=== PATIENT | male | born 1960 | race Caucasian/White ===

== ENCOUNTER 2017-10-20 11:09 | Emergency (ER) | payer SELFPAY ==
[2017-10-20 11:10] VITALS: BP 134/103; PULSE 111; RESP 16; TEMP 36.4; O2SAT 97; BMI 42.7
--- NOTE | 2017-10-20 11:36 | ED.VISSUMM ---
- ER Visit Summary Date of Service: 10/20/17 Chief Complaint: Acute on chronic abdominal pain History of Present Illness: The patient is a [address] PTSD, anxiety, prior appendectomy with hernia repair with mesh by Dr. Hubert Tang. Patient states that he has a lot of abdominal pain time and time. Seem to gotten worse today. He denies any nausea vomiting he has had some constipation. Denies any dysuria. States pain is on his right side of his abdomen primarily lower into his right groin. He denies any dysuria. Denies any fever or trauma. States he has been constipated for the last 4 days. Physical Examination: Well-appearing middle-age male. Vital signs are stable he is afebrile. No acute distress. H EENT exam unremarkable. Lungs clear to auscultation. Heart regular rhythm rate about 110 no murmur. Abdomen is soft he has a well-healed prior horizontal appendectomy incision right lower quadrant. He is tenderness around that. In his right lower quadrant. He has a large abdomen. Normal bowel sounds. Soft. No signs of obstruction. External exam is unremarkable. No hernias that are obvious. No signs of torsion or testicular mass. Moving all 4 extremities. Neurovascular intact. Test Results: Has had [address] abdomens which showed chronic changes. The ultrasound of his right groin area showing a hydrocele. BC normal white count 8. BMP normal. Liver enzymes and lipase normal. Emergency Department Course and Treatment: Treated with morphine and Zofran for pain. Treatment Plan: Exam patient is doing well. At 1307 will be discharged home. He will follow-up with Dr. Crisostomo for further evaluation of acute on chronic abdominal pain. At this time I do not appreciate an obvious hernia there may be a incisional hernia on the right side but is currently is not strangulated or incarcerated. Disposition: Discharge Impression: Acute on chronic abdominal pain vomiting of uncertain etiology Prior history of appendectomy and hernia repairs with mesh This note was generated with [employer] dictation software. It may contain incorrect words, spelling, and punctuation that were not noted in review of the chart prior to signing ED Disposition - Plan for ED Patient: Chief Complaint: Abd Pain Referrals: Roman Trammell MD [Primary Care Provider] -
[2017-10-20 11:59] LABS: Absolute Lymphocyte Count 1.95 X10^3/ul (0.83-4.51); Absolute Neutrophil Count 5.7 X10^3/uL (2.0-7.7); Basophil# 0.06 X10^3/uL; Basophil% 0.7 % (0-1); Eosinophil# 0.26 X10^3/uL; Hematocrit 46.6 % (40-54); Lymphocyte # 1.95 X10^3/ul (4.0); Lymphocyte % 22.4 % (19-41); Mean Corp Hgb Conc 34.3 g/gl (32-36); Mean Corpuscular Hgb 30.8 pg (27.0-32.0); Mean Corpuscular Volume 89.8 fL (80-94); Mean Platelet Vol. 9.1 fl (6.2-12.0); Monocyte# 0.66 X10^3/uL; Monocyte% 7.6 % (0-10); Neutrophil # 5.73 X10^3/uL (2.7-7.7); POSITIVE COUNT NO; POSITIVE DIFFERENTIAL NO; POSITIVE MORPHOLOGY NO; Platelet Count 186 K/mm3 (150-450); RBC Distribution Width CV 14.8 % (11.6-14.6); Red Blood Count 5.19 M/mm3 (4.6-6.2); White Blood Count 8.7 K/mm3 (4.4-11.0)
[2017-10-20 12:20] LABS: AST(SGOT) 18 U/L (15-37); Alanine Aminotransfer ALT/SGPT 27 U/L (16-61); Alkaline Phosphatase 75 U/L (45-117); Anion Gap 5 (5-15); BUN 15 mg/dL (7-18); BUN/Creat Ratio 15.2 RATIO (10-20); Bilirubin, Direct 0.17 mg/dL (0.00-0.30); Chloride 104 mmol/L (98-107); Creatinine, Serum 0.99 mg/dL (0.70-1.30); EST Glomerular Filtration Rate 83 mL/min (>60); Est Glom Filt Rate - Afr Amer 100 mL/min (>60); Estimated Creatinine Clearance 90.36 ml/min; Globulin 3.2 g/dL (2.2-4.2); Glucose 96 mg/dL (74-106); Lipase 230 U/L (73-393); Potassium 4.2 mmol/L (3.5-5.1); Protein, Total 7.2 g/dL (6.4-8.2); Sodium Level 138 mmol/L (136-145)
[2017-10-20] MEDS: Morphine 4 MG/ML Syringe 6 MG IV (12:23)
[2017-10-20 13:00] VITALS: BP 144/89; PULSE 93; RESP 16; O2SAT 94
--- NOTE | 2017-10-20 13:09 | ED.DEP ---
ED Disposition - Plan for ED Patient: Disposition: Home or Assisted Living Chief Complaint: Abd Pain Instructions: ED Abdominal Pain Unkn Cause Referrals: Carlos Crisostomo MD [STAFF PHYSICIAN] - As soon as possible Additional Instructions: Plan follow-up with Dr. Crisostomo for further evaluation. All your labs today were normal. You had 3 different abdominal CAT scans at the end of 2016 all of which were negative.
== END 2017-10-20 13:23 | disposition home or self-care (01) ==
PROVIDERS: Emergency Provider Emergency Medicine; Family Provider Family Medicine; PCP Family Medicine
DX: R10.31 Right lower quadrant pain (principal); G89.29 Other chronic pain; N43.3 Hydrocele, unspecified; R11.10 Vomiting, unspecified; R19.7 Diarrhea, unspecified; K59.00 Constipation, unspecified; F41.9 Anxiety disorder, unspecified; F43.10 Post-traumatic stress disorder, unspecified; X58.XXXA Exposure to other specified factors, initial encounter; Y93.9 Activity, unspecified; Y92.9 Unspecified place or not applicable; Y99.9 Unspecified external cause status; Z72.0 Tobacco use; Z79.899 Other long term (current) drug therapy
CPT/HCPCS: 80048; 80076; 83690; 85025; 96372; 99284; A4216

== ENCOUNTER 2019-03-02 08:15 | Emergency (ER) | payer SELFPAY ==
[2019-03-02 08:16] VITALS: BP 168/103; PULSE 119; RESP 18; TEMP 36.7; O2SAT 94; BMI 41.5
--- NOTE | 2019-03-02 08:36 | CT_ITS ---
STUDY: CT ABDOMEN AND PELVIS WITHOUT CONTRAST REASON FOR EXAM: Male, 58 years old. Shortness of breath. Difficulty with urination. Recent hernia repair. RADIATION DOSAGE (If Supplied By Facility): CTDIvol = ( 33.88 ) mGy, DLP = ( 1896.38 ) mGycm TECHNIQUE: Transaxial images were obtained from the dome of the diaphragm to the symphysis pubis without oral contrast, and without intravenous contrast. Sagittal and coronal images were reconstructed. Individualized dose optimization techniques were used for this CT. COMPARISON: Comparison is made with prior study February 12, 2017. FINDINGS: The visualized lung bases are unremarkable. The visualized portions of the heart are within normal limits. Normal liver. Normal gallbladder and extrahepatic biliary system. Normal spleen. Normal pancreas. Normal bilateral adrenal glands. Normal right kidney. Normal left kidney. Normal visualized stomach. Normal small intestine. There are scattered colonic diverticula consistent with diverticulosis. The appendix is visualized and appears normal. Normal abdominal aorta. Normal inferior vena cava. Normal retroperitoneum. Normal urinary bladder. There are prostatic calcifications. The prostate is not enlarged. Normal abdominal wall. There are mild degenerative changes of the visualized lumbar spine. CT/Abdomen/Pelvis without Cont IMPRESSION: No acute adenopathy is seen. Prostatic calcifications. Electronically Signed: Emory Tejada, at 9:54 EDT , Service support ,
--- NOTE | 2019-03-02 08:36 | EKG12_ITS ---
Test Reason : ABD PAIN Blood Pressure : / mmHG Vent. Rate : 096 BPM Atrial Rate : 096 BPM P-R Int : 180 ms QRS Dur : 126 ms QT Int : 374 ms P-R-T Axes : 050 -24 013 degrees QTc Int : 472 ms Normal sinus rhythm Right bundle branch block Abnormal ECG Confirmed by LAURI ROGERS ([id number]), brands editor PERRY ASCENCIO ([id number]) on 03/06/2019 2:39:34 PM Referred By: JESSICA Confirmed By:LAURI ROGERS
[2019-03-02] MEDS: 0.9% Normal Saline 1,000 ML 1000 ML IV (08:48)
[2019-03-02] MEDS: Ondansetron 4 MG/2 ML Vial IV (08:49)
[2019-03-02] MEDS: Morphine 4 MG/ML Syringe IV (08:49)
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
[2019-03-02 08:52] LABS: Absolute Lymphocyte Count 2.89 X10^3/uL (0.83-4.51); Absolute Neutrophil Count 10.9 X10^3/uL (2.0-7.7); Basophil# 0.06 X10^3/uL; Basophil% 0.4 % (0-1); Eosinophil# 0.05 X10^3/uL; Eosinophils% 0.3 % (0-5); Hematocrit 54.9 % (40-54); Hemoglobin 17.8 g/dL (13.0-16.5); Lymphocyte # 2.89 X10^3/ul (4.0); Mean Corp Hgb Conc 32.4 g/dL (32-36); Mean Corpuscular Hgb 29.9 pg (27.0-32.0); Mean Corpuscular Volume 92.3 fL (80-94); Monocyte% 7.9 % (0-10); NRBC Flagged by Analyzer 0 % (0-5); Neutrophil # 10.89 X10^3/uL (2.7-7.7); Neutrophil % 71.6 % (47-70); Platelet Count 166 K/mm3 (150-450); RBC Distribution Width CV 14.8 % (11.6-14.6); RBC Distribution Width SD 49.9 fl (35.1-43.9); Red Blood Count 5.95 M/mm3 (4.6-6.2); White Blood Count 15.2 K/mm3 (4.4-11.0)
[2019-03-02 09:16] LABS: Mucous, Urine 0 SEEN /hpf (<or=2+)
[2019-03-02 09:19] LABS: Color, Urine Yellow (Yellow); Glucose, Dipstick Normal (Normal); Ketone-Dipstick Negative (Negative); Leukocyte Esterase-Dipstick Negative /ul (Negative); Nitrite-Dipstick Negative (Negative); Occult Blood-Urine 50 /ul (Negative); Protein-Dipstick Negative (Negative); Urine Bilirubin Dipstick Negative (Negative); Urine Clarity Sl. Cloudy (Clear); Urine Urobilinogen Normal (Normal)
[2019-03-02 09:23] LABS: ALB/GLOB Ratio 0.9 RATIO (0.9-2.4); AST(SGOT) 18 U/L (15-37); Alanine Aminotransfer ALT/SGPT 33 U/L (16-61); Albumin, Serum 3.8 g/dL (3.2-5.0); Alkaline Phosphatase 78 U/L (45-117); Anion Gap 9 (5-15); BUN 16 mg/dL (7-18); BUN/Creat Ratio 16.1 RATIO (10-20); Calcium,Total 9.4 mg/dL (8.5-10.1); Chloride 106 mmol/L (98-107); EST Glomerular Filtration Rate 82 mL/min (>60); Est Glom Filt Rate - Afr Amer 99 mL/min (>60); Globulin 4.1 g/dL (2.2-4.2); Glucose 94 mg/dL (74-106); Potassium 3.9 mmol/L (3.5-5.1); Protein, Total 7.9 g/dL (6.4-8.2); Sodium Level 143 mmol/L (136-145)
[2019-03-02 09:30] LABS: Bacteria RARE /hpf (None Seen); Red Blood Cells-Urine 0-5 SEEN /hpf (0-5); Squamous Epithelial Cells - UA 0-5 SEEN /hpf (0-5); White Blood Cells 0-5 SEEN /hpf (0-5)
--- NOTE | 2019-03-02 10:27 | ED.DEP ---
ED Disposition - Plan for ED Patient: Disposition: Home or Assisted Living Diagnosis: Chronic abdominal pain, Urinary incontinence Instructions: ABDOMINAL PAIN, Unkown Cause, (Male) Prescriptions: Lorazepam [Ativan] 0.5 mg PO BID 3 Days #6 tab Prescription Printed Referrals: Gabriel Recio MD [STAFF PHYSICIAN] - Greyson Feliciano MD [NON-STAFF] -
[2019-03-02 10:48] VITALS: BP 171/89; PULSE 84; RESP 18; O2SAT 99
== END 2019-03-02 10:54 | disposition home or self-care (01) ==
PROVIDERS: Emergency Provider Emergency Medicine
DX: R10.9 Unspecified abdominal pain (principal); G89.29 Other chronic pain; N39.490 Overflow incontinence; K59.00 Constipation, unspecified; R11.2 Nausea with vomiting, unspecified; I45.10 Unspecified right bundle-branch block; I10 Essential (primary) hypertension; E78.5 Hyperlipidemia, unspecified; F41.9 Anxiety disorder, unspecified; E66.9 Obesity, unspecified; F17.200 Nicotine dependence, unspecified, uncomplicated; Z88.5 Allergy status to narcotic agent; Z88.8 Allergy status to other drugs, medicaments and biological substances
CPT/HCPCS: 74176; 80053; 81001; 84484; 85025; 93005; 96361; 96374; 96375; 99283; J7030; A4216; J2405

== ENCOUNTER 2019-03-04 01:52 | Emergency (ER) | payer SELFPAY ==
[2019-03-04 01:53] VITALS: BP 202/124; PULSE 124; RESP 20; TEMP 37; O2SAT 95; BMI 44.7
--- NOTE | 2019-03-04 02:32 | ED.VIS.GEN ---
History of Present Illness Chief Complaint: Back Narrative: Patient is a 58-year-old male who presents with back pain. This is present just today. He complains of severe left lower back pain with radiation to the buttock lateral hip and anterior thigh to the level of the knee. He was recently having abdominal pain and had an unremarkable CT a couple days ago. He does have a history of constipation. He states he actually multiple large bowel movements today and his abdominal pain has since resolved. He was also having some urinary issues incontinence at that time. He notes that after having bowel movements this is actually resolved as well. No fecal incontinence or urinary retention. Currently no abdominal pain. He denies history of prior back surgery. No fevers. No numbness tingling or weakness. His pain is worse with bearing weight or ambulation. Past Medical History - Allergies and Home Meds Allergies/Adverse Reactions: Allergies codeine Allergy (Verified 03/04/19 01:55) Hives Iodinated Contrast Media [Iodinated Contrast Media - IV Dye] Allergy (Verified 03/04/19 01:55) Hives methylphenidate [From Ritalin] Adverse Reaction (Verified 03/04/19 01:55) Other ANTIDEPRESSANTS Adverse Reaction (Uncoded 03/04/19 01:55) Other Primary Care Physician: Care Physician,No Primary [Primary Care Provider] - Surgical History: appendectomy, - - Arthroscopic surgery Smoking Status: Current every day smoker - Family History Maternal Family History: Reports: No pertinent history Paternal Family History: Reports: Heart Disease Review of Systems ROS: Unable to Obtain General: Denies: Fever Cardiovascular: Denies: Chest pain Respiratory: Denies: Dyspnea Gastrointestinal: Reports: Abdominal pain, Constipation. Denies: Vomiting, Diarrhea Musculoskeletal: Reports: Back pain Skin: Denies: Rash Neurological: Denies: Headache Physical Exam Vital Signs/Narrative: Vital Signs Temp Pulse Resp BP Pulse Ox 03/04/19 01:53 98.6 F 124 H 20 H 202/124 H 95 Inital Vital Signs reviewed: Yes General: Well nourished Head: Normocephalic Eyes: EOMI ENT: Moist mucous membranes Neck: Supple Cardiovascular: Regular rate, Regular rhythm Respiratory: No distress, CTA bilaterally Abdomen: Soft, Nontender, Nondistended Back: Nontender Extremities: - - 5 out of 5 bilateral dorsiflexion, plantarflexion, extensor hallucis longus, extremities warm and dry, brisk capillary refill, easily palpable dorsalis pedis pulses, negative straight leg raise bilaterally Skin: Normal color Neurological: Alert, Normal Strength, Normal Sensation Diagnostic/Tx/Re-eval - Medical Decision Making Patient was treated with intramuscular morphine. His presentation is most consistent with a lumbar radiculopathy. He was provided prescriptions for Percocet and a prednisone burst. He was advised to follow-up with his primary care physician. He understands to return for new or worsening symptoms. He will be discharged. ED Disposition - Plan for ED Patient: Disposition: Home or Assisted Living Diagnosis: Lumbar radiculopathy, acute Instructions: BACK PAIN w/ SCIATICA Prescriptions: Oxycodone HCl/Acetaminophen [Percocet 5/325] 1 tab PO Q6H PRN PRN 3 Days #12 tab PRN Reason: Pain Prescription Printed predniSONE tablet 60 mg PO DAILY #15 tab Prescription Printed Referrals: Care Physician,No Primary [Primary Care Provider] -
[2019-03-04] MEDS: morphine 10 MG/ML Syringe SC (02:43)
[2019-03-04 03:13] VITALS: BP 152/97; PULSE 99; RESP 18; O2SAT 92
[2019-03-04 03:25] VITALS: BP 146/80; PULSE 78; RESP 18; O2SAT 96
== END 2019-03-04 03:27 | disposition home or self-care (01) ==
PROVIDERS: Emergency Provider Emergency Medicine
DX: M54.16 Radiculopathy, lumbar region (principal); R32 Unspecified urinary incontinence; K59.00 Constipation, unspecified; F17.200 Nicotine dependence, unspecified, uncomplicated; Z88.8 Allergy status to other drugs, medicaments and biological substances
CPT/HCPCS: 96372; 99282

== ENCOUNTER 2019-03-06 14:29 | Inpatient (IN) | payer SELFPAY ==
[2019-03-06] VITALS (9 sets, daily range): BP systolic 144–194; BP diastolic 87–107; PULSE 102–119; RESP 17–20; TEMP 36.7–37.2; O2SAT 91–97; BMI 43.5; BMI 43.9
--- NOTE | 2019-03-06 15:12 | CT_ITS ---
STUDY: CT BRAIN WITHOUT CONTRAST REASON FOR EXAM: Male, 58 years old. Arm weakness RADIATION DOSAGE (If Supplied By Facility): CTDIvol = ( 60.81 ) mGy, DLP = ( 1135.50 ) mGycm TECHNIQUE: Transaxial CT imaging of the brain was performed without administration of intravenous contrast material. Individualized dose optimization techniques were used for this CT. COMPARISON: May 21, 2015 FINDINGS: Normal soft tissue structures. Normal calvarium. Normal size ventricles and extra-axial spaces for the patient's age. Mild periventricular white matter ischemic changes.. Normal basal ganglia and thalami. Normal brainstem. Normal cerebellum. There is no intracranial hemorrhage. There are no findings of an acute ischemic infarction. Normal visualized paranasal sinuses. No significant change since prior exam CT/Brain/Head without Contrast IMPRESSION: Mild periventricular white matter ischemic change. No evidence for acute bleed. If concern for acute infarct MRI recommended. Electronically Signed: Tl Escobedo MD at 16:13 EDT , Service support ,
--- NOTE | 2019-03-06 15:13 | RAD_ITS ---
STUDY: X-RAY - LUMBAR SPINE REASON FOR EXAM: Male, 58 years old. Increasing low back pain TECHNIQUE: 3 view(s) of the lumbar spine were obtained. COMPARISON: None FINDINGS: Normal lumbar lordosis. There is moderate scoliosis. There is a normal alignment of the vertebrae. No evidence for acute fracture or subluxation.. Multilevel disc space narrowing and osteophytic spurring The soft tissue structures are unremarkable. On the lateral projection, there appears to be multilevel spinal stenosis exaggerated by developmental foreshortening the pedicles. This may be better assessed with MRI or CAT scan if indicated RAD/Lumbar Spine 2 or 3 Views IMPRESSION: Scoliosis and degenerative changes. Electronically Signed: Tl Escobedo MD at 16:06 EDT , Service support ,
--- NOTE | 2019-03-06 15:16 | ED.VISSUMM ---
- ER Visit Summary Date of Service: 03/06/19 Chief Complaint: Back pain History of Present Illness: The patient is a 58 M presenting with back pain. He states this has been ongoing for the past 2 to 3 weeks. He was seen in the ED 2 days ago and was prescribed Percocet. He states that this does help him sleep at night. He states he has 4 pills left. States 3 weeks ago he fell while walking his dog. He did not hit his head or lose consciousness. Since that time he complains of lower back pain. He has radiation to his left leg. He is not currently in pain management. He denies bowel or bladder incontinence. He also has a history of depression and anxiety. He has not been on his medication for the past year. He denies suicidal ideation. He also states this morning he was smoking a cigarette and dropped the cigarette. He states he dropped multiple things following this. Now has normal strength in his hand. Denies other complaints. Physical Examination vitals are stable. Patient is afebrile. Alert no acute distress. HEENT exam is unremarkable. Neck is supple, nontender Lungs are clear and equal bilaterally. Heart is regular and tachycardic Abdomen is soft nontender nondistended. Back: Left paraspinal lumbar muscle tenderness, no midline tenderness. Straight leg raise positive at 30 degrees on the left. Extremities are unremarkable. Normal distal pulses Skin is warm and dry. No focal neurologic deficit. NIH 0 Depressed affect, denies suicidal ideation Remainder of exam is unremarkable. Emergency Department Course and Treatment: Patient was given morphine, Zofran IV. CBC shows hemoglobin 18.7. Chemistries unremarkable other than BUN of 20. Lumbar x-ray shows scoliosis, degenerative changes. CT head shows chronic changes. CTA head and neck are normal. EKG sinus rate of 99, unchanged from previous. Discussed with Dr. Mejia who recommends admission. Discussed with the hospitalist. Disposition: Admission Impression: Sciatica, TIA This note was generated with [employer] dictation software. It may contain incorrect words, spelling, and punctuation that were not noted in review of the chart prior to signing ED Disposition - Plan for ED Patient: Referrals: Care Physician,No Primary [Primary Care Provider] -
[2019-03-06] MEDS: Ondansetron 4 MG/2 ML Vial IV (15:33)
[2019-03-06] MEDS: Morphine 4 MG/ML Syringe IV ×2 (15:33→18:06)
[2019-03-06 16:02] LABS: Absolute Lymphocyte Count 2.04 X10^3/uL (0.83-4.51); Absolute Neutrophil Count 7.4 X10^3/uL (2.0-7.7); Basophil% 0.9 % (0-1); Eosinophil# 0.37 X10^3/uL; Eosinophils% 3.4 % (0-5); Lymphocyte # 2.04 X10^3/ul (4.0); Lymphocyte % 18.8 % (19-41); Mean Corp Hgb Conc 33.6 g/dL (32-36); Mean Corpuscular Hgb 30.7 pg (27.0-32.0); Mean Corpuscular Volume 91.3 fL (80-94); Mean Platelet Vol. 8.9 fl (6.2-12.0); Monocyte# 0.87 X10^3/uL; NRBC Flagged by Analyzer 0 % (0-5); Neutrophil # 7.43 X10^3/uL (2.7-7.7); Neutrophil % 68.3 % (47-70); Platelet Count 179 K/mm3 (150-450); RBC Distribution Width CV 14.8 % (11.6-14.6); RBC Distribution Width SD 49.1 fl (35.1-43.9); Red Blood Count 6.09 M/mm3 (4.6-6.2); White Blood Count 10.9 K/mm3 (4.4-11.0)
[2019-03-06 16:07] LABS: Anion Gap 5 (5-15); BUN 20 mg/dL (7-18); BUN/Creat Ratio 20.8 RATIO (10-20); Calcium,Total 9.3 mg/dL (8.5-10.1); Chloride 106 mmol/L (98-107); Creatinine, Serum 0.96 mg/dL (0.70-1.30); EST Glomerular Filtration Rate 85 mL/min (>60); Est Glom Filt Rate - Afr Amer 103 mL/min (>60); Estimated Creatinine Clearance 93.63 ml/min; Glucose 109 mg/dL (74-106); Sodium Level 139 mmol/L (136-145)
[2019-03-06 16:08] LABS: Hematocrit 55.6 % (40-54)
[2019-03-06 16:16] LABS: Hemoglobin 18.7 g/dL (13.0-16.5)
--- NOTE | 2019-03-06 16:16 | NURSING ---
lab resulted hgb 18.7, christcian notified
--- NOTE | 2019-03-06 16:33 | CT_ITS ---
STUDY: CTA HEAD AND NECK WITH CONTRAST REASON FOR EXAM: Male, 58 years old. Left-handed weakness RADIATION DOSAGE (If Supplied By Facility): CTDIvol = ( 23.75 ) mGy, DLP = ( 881.96 ) mGycm TECHNIQUE: CT angiography was performed with a multi-detector CT scanner. Data acquisition was obtained from the skull base through the vertex following intravenous administration of 100 IV Isovue 370. MIP images were reconstructed from the axial data set. Post-processing of the angiographic images was performed, with multiplanar reformation and 3D reconstruction. Individualized dose optimization techniques were used for this CT. COMPARISON: No relevant priors. FINDINGS: Normal bilateral petrous carotid arteries. Normal right cavernous carotid artery with a normal supraclinoid bifurcation. Normal left cavernous carotid artery with a normal supraclinoid bifurcation. Normal right A1 segments of the anterior cerebral artery. Normal left A1 segments of the anterior cerebral artery. Anterior communicating artery not visualized consistent with normal variant). Normal bilateral A2 segments of the anterior cerebral arteries. Normal right M1 and M2 segments of the middle cerebral arteries, with a normal M1 bifurcation. Normal left M1 and M2 segments of the middle cerebral arteries, with a normal M1 bifurcation. Normal right posterior communicating artery (PCOM). Normal left posterior communicating artery (PCOM). Normal bilateral vertebral arteries. Normal basilar artery with a normal basilar bifurcation. The visualized bilateral superior cerebellar (SCA) arteries are normal. Normal bilateral P1, P2 and visualized P3 segments of the posterior cerebral arteries. There is no demonstrated aneurysm of the [place]. There is no demonstrated abnormality of the visualized brain. AORTIC ARCH: Normal visualized aortic arch. Normal origins of the brachiocephalic, left common carotid, and left subclavian arteries. RIGHT CAROTID ARTERIES: Normal right common carotid artery (CCA). Normal right common carotid bulb. Normal origin of the right internal carotid (ICA) artery without a hemodynamically significant stenosis. Normal visualized cervical portion of the right internal carotid artery. Normal origin of the right external carotid artery (ECA). LEFT CAROTID ARTERIES: Normal left common carotid artery (CCA). Normal left common carotid bulb. Normal origin of the left internal carotid (ICA) artery without a hemodynamically significant stenosis. Normal visualized cervical portion of the left internal carotid artery. Normal origin of the left external carotid artery (ECA). VERTEBRAL ARTERIES: Normal bilateral vertebral arteries. CT/CTA Head AND Neck W/ Contrast IMPRESSION: Normal CTA Head and neck with contrast. Electronically Signed: Tl Escobedo MD at 18:25 EDT , Service support ,
[2019-03-06] MEDS: DiphenhydrAMINE 50 MG/ML Syringe 25 MG IV (16:48)
[2019-03-06] MEDS: MethylPREDNISolone 125 MG/2 ML Vial IV (16:48)
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
--- NOTE | 2019-03-06 20:51 | EKG12_ITS ---
Test Reason : Blood Pressure : / mmHG Vent. Rate : 099 BPM Atrial Rate : 099 BPM P-R Int : 174 ms QRS Dur : 132 ms QT Int : 374 ms P-R-T Axes : 053 -22 022 degrees QTc Int : 479 ms Normal sinus rhythm Right bundle branch block Abnormal ECG Confirmed by PAYAM MAGANA, SAMANTHA ([id number]), manuscript editor PERRY ASCENCIO ([id number]) on 03/08/2019 12:53:46 PM Referred By: Confirmed By:SAMANTHA HARE MD
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
--- NOTE | 2019-03-06 22:14 | ECHOCS_ITS ---
Reason For Study: TIA/CVA Procedure This was a 2D Doppler, Color Flow transthoracic echocardiogram. The study was technically difficult. Contrast injection was performed. Exam performed portable in patient room. Left Ventricle Normal size and thickness. The estimated ejection fraction is 60 %. Normal diastology for age. No regional wall motion abnormalities noted. Right Ventricle Normal RV size. Normal systolic function. Atria Normal left atrium. Normal right atrium. Bubble contrast study negative for right to left interatrial shunt. No doppler evidence for ASD. Mitral Valve There is no mitral valve stenosis. No mitral valve insufficiency. Tricuspid Valve There is no tricuspid stenosis. Unable to estimate RV systolic pressure due to inadequate jet, pulmonary artery pressure probably normal. No tricuspid valve insufficiency. Aortic Valve Trisinus/trileaflet aortic valve. There is no aortic stenosis. No aortic valve insufficiency. Pulmonic Valve There is no pulmonic valvular stenosis. No pulmonic valve insufficiency. Great Vessels Normal aortic root. Pericardium/Pleural No pericardial effusion. Medication Diluted definity 4ml given slow IV push to enhance endocardial definition. Performed a rapid injection of agitated mix of 9 cc saline and 1cc air to assess for atrial septal defect. MMode/2D Measurements & Calculations LVIDd: 4.4 cm IVSd: 1.0 cm Ao root diam: 3.9 cm LVIDs: 3.4 cm LVPWd: 1.2 cm LA dimension: 3.9 cm FS: 22.3 % LAV(MOD-bp): 47.8 ml LVAd ap4: 46.2 cm2 SV(MOD-sp4): 117.0 ml LAV(MOD-bp) Indexed: 17.9 ml/m2 EDV(MOD-sp4): 182.2 ml LAV(MOD-sp2): 48.0 ml EDV(sp4-el): 188.4 ml LAV(MOD-sp4): 46.1 ml LVAs ap4: 25.4 cm2 ESV(MOD-sp4): 65.1 ml ESV(sp4-el): 67.4 ml EF(MOD-sp4): 64.2 % EF(sp4-el): 64.2 % SV(sp4-el): 121.0 ml LA A4 area: 17.5 cm2 RA A4 area: 15.1 cm2 Time Measurements MV dec time: 0.18 sec Doppler Measurements & Calculations MV E max jose: 64.6 cm/sec Lat Peak E' Jose: 9.6 cm/sec Med Peak E' Jose: 6.4 cm/sec MV A max jose: 97.0 cm/sec E/E' lat: 6.8 E/E' med: 10.1 MV E/A: 0.67 MV V2 max: 115.8 cm/sec MV P1/2t max jose: 71.1 cm/sec Ao V2 max: 146.1 cm/sec MV max P.4 mmHg MV P1/2t: 65.0 msec Ao max P.5 mmHg MV V2 mean: 61.3 cm/sec Ao V2 mean: 99.8 cm/sec MV mean P.8 mmHg MV dec slope: 320.4 cm/sec2 Ao mean P.6 mmHg MV V2 VTI: 20.7 cm MVA(P1/2t): 3.4 cm2 Ao V2 VTI: 27.7 cm LV V1 max: 110.5 cm/sec PA V2 max: 104.0 cm/sec LV V1 max P.9 mmHg LV V1 mean P.2 mmHg LV V1 mean: 67.2 cm/sec LV V1 VTI: 22.2 cm Interpretation Summary The study was technically difficult. Diluted definity 4ml given slow IV push to enhance endocardial definition. Performed a rapid injection of agitated mix of 9 cc saline and 1cc air to assess for atrial septal defect. Bubble contrast study negative for right to left interatrial shunt. The estimated ejection fraction is 60 %. The study was technically difficult. Ordering Physician: Cal Gautam Referring Physician: GAURAV PCP Performed By: Jose Gaines RCS
[2019-03-06] MEDS: Ipratropium/Albuterol Sulfate 3 ML AMPUL.NEB INHALATION (23:49)
[2019-03-07] VITALS (14 sets, daily range): BP systolic 125–139; BP diastolic 75–88; PULSE 88–105; RESP 16–22; TEMP 36.4–36.9; O2SAT 91–93; BMI 43.9
--- NOTE | 2019-03-07 05:17 | NURSING ---
Pt. c/o to DEPUTY DIRECTOR OF NURSING of left hand Drooping. This nurse went into room to check patient. Patient was holding his phone horizontally and playing a game. This nurse observed pt. holding phone horizontally for approximately 30 seconds with no problem. Strength equal in both arms and hands with no complaints of numbness or tingling in hands. Pt. able to hold arms at 45 degree angle for 10 seconds with no drop. Informed pt. to let RN know if he has further symptoms in hand. Will continue to monitor.
[2019-03-07] MEDS: Ipratropium/Albuterol Sulfate 3 ML AMPUL.NEB INHALATION ×3 (06:46→18:43)
[2019-03-07] MEDS: Gabapentin 300 MG Capsule PO ×2 (07:03→17:46)
[2019-03-07] MEDS: Aspirin 81 MG TAB.CHEW PO (07:04)
[2019-03-07 07:19] LABS: Anion Gap 7 (5-15); BUN 27 mg/dL (7-18); BUN/Creat Ratio 26.2 RATIO (10-20); Calcium,Total 9.1 mg/dL (8.5-10.1); Chloride 106 mmol/L (98-107); Cholesterol 196 mg/dL (200); Creatinine, Serum 1.03 mg/dL (0.70-1.30); EST Glomerular Filtration Rate 79 mL/min (>60); Est Glom Filt Rate - Afr Amer 95 mL/min (>60); Estimated Creatinine Clearance 87.27 ml/min; Glucose 158 mg/dL (74-106); High Density Lipoprotein 78 mg/dL; Potassium 4.6 mmol/L (3.5-5.1); Sodium Level 142 mmol/L (136-145); Triglycerides 77 mg/dL; Very Low Density Lipoprotein 15 mg/dL (5-40)
--- NOTE | 2019-03-07 08:30 | MRI_ITS ---
STUDY: MRI BRAIN WITHOUT CONTRAST REASON FOR EXAM: Male, 58 years old. Weakness and left hand paresthesia TECHNIQUE: Standardized multiplanar fat and water weighted pulse sequences were obtained. COMPARISON: CT head 03/16/2019. FINDINGS: Normal size of the ventricles and extra-axial spaces for the patient's age. Normal white matter tracts of the supratentorial brain. Normal bilateral basal ganglia. Normal thalami. There is no extra-axial fluid accumulation. Normal flow voids within the major intracranial circulation suggesting patency by spin echo criteria. Normal sella turcica, pituitary gland, infundibular stalk, optic chiasm and hypothalamus. Normal tectal plate and pineal gland. Normal midbrain, romulo and medulla. Normal cerebellum. Normal basal cisterns. Normal bilateral temporal bones. Normal bilateral internal auditory canals. No demonstrated orbital abnormality, within the constraints of a routine brain study. Normal visualized paranasal sinuses. Normal calvarium and skull base. Normal visualized soft tissue structures. Normal visualized upper cervical spine. MRI/Brain without Contrast IMPRESSION: Normal unenhanced MRI of the brain. Electronically Signed: Teresa Yoo, at 10:12 EDT Tel , Service support ,
[2019-03-07 09:25] LABS: Hemoglobin A1c 5.6 % (4.2-6.3)
--- NOTE | 2019-03-07 10:51 | MRI_ITS ---
STUDY: MRI CERVICAL SPINE WITHOUT CONTRAST REASON FOR EXAM: Male, 58 years old. Neck pain and transient paresthesias in left hand TECHNIQUE: Standardized fat and water weighted pulse sequences were obtained in the sagittal and axial planes. COMPARISON: CT of the cervical spine May 21, 2015 FINDINGS: Normal foramen magnum and brainstem-cervical cord junction. Normal craniovertebral junction. Normal anterior atlantoaxial articulation. Normal odontoid process. Normal cervical lordosis. Normal vertebral bodies and posterior osseous elements. C2-3: Normal endplates. Normal disc height, signal and morphology. Normal central canal and intervertebral neural foramina. C3-4: Normal endplates. Normal disc height, signal and morphology. Normal central canal and intervertebral neural foramina. C4-5: Normal endplates. Normal disc height, signal and small central disc protrusion.. Mild narrowing of the central canal. Mild left neural foraminal encroachment secondary to bony hypertrophy.. C5-6: Narrowed disc space and endplate spurring. Mild bulging disc osteophyte complex. Mild narrowing of the central canal. Moderate bilateral neuroforaminal stenosis C6-7: Normal endplates. Normal disc height, signal and mild bulging of the disc. Mild narrowing of the central canal.. Mild right neuroforaminal encroachment and moderate narrowing on the left secondary to disc and bony hypertrophy C7-T1: Normal endplates. Normal disc height, signal and morphology. Normal central canal and intervertebral neural foramina. Normal cervical cord. Normal visualized soft tissue structures. There is very slight interval progression of the degenerative changes since prior study MRI/Spine Cervical (Routine) IMPRESSION: Mild spondylosis most pronounced at C5-6 and C6-7.. Multilevel spinal stenosis secondary to disc disease and bony hypertrophy most severe at C5-6 Electronically Signed: Tl Escobedo MD at 16:17 EDT , Service support ,
--- NOTE | 2019-03-07 10:51 | MRI_ITS ---
STUDY: MRI LUMBAR SPINE WITHOUT CONTRAST REASON FOR EXAM: Male, 58 years old. Low back pain with radiculopathy TECHNIQUE: Standardized fat and water weighted pulse sequences were obtained in the sagittal and axial planes. COMPARISON: Lumbar spine series March 06, 2019 FINDINGS: No evidence for acute fracture or subluxation. Large interosseous hemangioma within the L2 vertebral body T12-L1: Normal endplates. Normal disc height, hydration and tiny central disc protrusion. Normal bilateral facet joints. Normal central canal and bilateral lateral recesses. Normal bilateral intervertebral neural foramina. Normal lumbar lordosis. There is moderate levo scoliosis. Normal conus medullaris that terminates at T12-L1 L1-2: Mild endplate spurring. Narrowed disc space with desiccation of the disc and minimal annular bulge.. Normal bilateral facet joints. Normal central canal and bilateral lateral recesses. Normal bilateral intervertebral neural foramina. L2-3: Mild endplate spurring.. Normal disc height, desiccation and minimal annular bulge with small right foraminal disc protrusion.. Normal bilateral facet joints. Normal central canal and bilateral lateral recesses. Moderate right neuroforaminal stenosis. L3-4: Grade 1 retrolisthesis. Normal disc height and minor bulging disc osteophyte complex with small left posterolateral/foraminal disc/osteophyte protrusion. Bilateral facet arthropathy and thickening of ligamenta flava. Normal central canal. Mild right lateral recess and moderate to severe left lateral recess stenosis. Moderate right neuroforaminal stenosis and severe narrowing on the left.. L4-5: Normal endplates. Normal disc height, desiccation and minor annular bulge.. Bilateral facet arthropathy and mild thickening of ligamenta flava... Normal central canal and bilateral lateral recesses. Moderate bilateral neuroforaminal stenosis. L5-S1: Normal endplates. Normal disc height, desiccation and minor annular bulge.. Bilateral facet arthropathy.. Normal central canal and bilateral lateral recesses. Normal bilateral intervertebral neural foramina. Normal visualized sacral ala. Normal visualized paraspinous soft tissue structures. Findings are similar to that seen on recent radiographic study given differences in imaging modalities MRI/Spine Lumbar (Routine) IMPRESSION: No evidence for acute fracture or subluxation. Moderate spondylosis and multilevel disc degeneration. Multilevel spinal stenosis secondary to disc disease and bony hypertrophy most severe at L3-4 and L4-5. Findings as above Electronically Signed: Tl Escobedo MD at 16:26 EDT , Service support ,
--- NOTE | 2019-03-07 10:54 | CON.PCM_ITS ---
Reason for Consult Date of Consultation: 03/07/19 Reason for Consultation: Dropping objects in the left hand History of Present Illness: The patient is a 58 year old M with PMH anxiety/depression, tobacco abuse, COPD, morbid obesity, ZAN admitted with severe low back pain and dropping objects in the left hand. Per patient he has been almost bedbound with severe low back pain for the past 2 weeks, complains of severe low back pain with pain radiating to the left leg, since yesterday morning patient noticed that he has been dropping things with his left hand but later when he was in the ED he was no longer dropping objects with the left hand. Per ED documentation his NIHSS was 0 on admission. Per patient he lives alone, denies any frequent falls, does not use cane or walker to ambulate. Patient also complains of severe neck pain but denies any headache, dizziness, focal motor weakness, sensory loss, visual disturbances or speech disturbances. Patient does not take any aspirin at baseline. MRI brain done on admission did not show any acute stroke. CTA head/neck did not show any hemodynamically significant stenosis or occlusion. On admission his blood pressure was 194/104 mmHg [] Past Medical History Past Medical History (Chronic Problems): Chronic Problems Anxiety (Chronic) COPD (chronic obstructive pulmonary disease) (Chronic) Obstructive sleep apnea (Chronic) Allergies codeine Allergy (Verified 03/04/19 01:55) Hives Iodinated Contrast Media [Iodinated Contrast Media - IV Dye] Allergy (Verified 03/04/19 01:55) Hives methylphenidate [From Ritalin] Adverse Reaction (Verified 03/04/19 01:55) Other ANTIDEPRESSANTS Adverse Reaction (Uncoded 03/04/19 01:55) Other Home Medications: Ambulatory Orders Medication Instructions Recorded Naproxen Sodium [Aleve] 220 mg PO BID PRN PRN 03/06/19 Surgical History: appendectomy, - - Arthroscopic surgery Lives: Alone Smoking Status: Current every day smoker Tobacco Use: Cigarettes, Cigars Alcohol: None Drugs: None - *Family History Maternal History Items: No pertinent history Paternal History Items: Heart Disease Review of Systems Constitutional: Reports: - - Complete ROS negative except as documented in HPI Patient Problems: Active and Suspected Problems Left hand paresthesia (Acute) Back pain (Acute) - Physical Exam General: Alert HEENT: Normocephalic Neck: Supple Lungs: Normal air movement Cardiovascular: Normal S1, Normal S2 Abdomen: Bowel Sounds Present Extremities: No cyanosis Neurological: - - Conscious, alert, CN II through XII grossly intact, power 5 x 5 both upper extremities, right lower extremity, left lower extremity power testing is limited due to the severe low back pain and patient unable to lift left leg secondary to back pain, no sensory loss no cerebellar signs, gait deferred, reflexes + B/L B/S/T/K/A Psych/Mental Status: Normal Affect Vital Signs Temp Pulse Resp BP Pulse Ox 98.1 F 98 16 138/88 H 92 03/07/19 10:23 03/07/19 10:23 03/07/19 10:23 03/07/19 10:23 03/07/19 10:23 Oxygen Flow Rate (L/min) 2 Oxygen Delivery Method Room Air Weight: 151.1 kg Body Mass Index (BMI) 43.9 Intake and Output for Last 24 Hours 03/05/19 03/06/19 03/07/19 23:59 23:59 23:59 Intake Total 0 / 0 Output Total 450 / 450 Balance -450 / -450 Laboratory Tests Past 24 Hrs 03/06/19 03/06/19 03/07/19 15:40 15:40 06:04 WBC 10.9 RBC 6.09 Hgb 18.7 H* Hct 55.6 H MCV 91.3 MCH 30.7 MCHC 33.6 RDW Std Deviation 49.1 H RDW Coeff of Penelope 14.8 H Plt Count 179 MPV 8.9 Immature Gran % (Auto) 0.600 Neut % (Auto) 68.3 Lymph % (Auto) 18.8 L [place] % (Auto) 8.0 Eos % (Auto) 3.4 Baso % (Auto) 0.9 Absolute Neuts (auto) 7.4 Absolute Lymphs (auto) 2.04 Nucleated RBC % 0 Sodium 139 142 Potassium 4.0 4.6 Chloride 106 106 Carbon Dioxide 28.0 29.0 Anion Gap 5 7 BUN 20 H 27 H Creatinine 0.96 1.03 Estim Creat Clear Calc 93.63 87.27 Est GFR (MDRD) Af Amer 103 95 Est GFR (MDRD) Non-Af 85 79 BUN/Creatinine Ratio 20.8 H 26.2 H Glucose 109 H 158 H Hemoglobin A1c Calcium 9.3 9.1 Triglycerides 77 Cholesterol 196 LDL Cholesterol 103 VLDL Cholesterol 15 HDL Cholesterol 78 03/07/19 06:04 WBC RBC Hgb Hct MCV MCH MCHC RDW Std Deviation RDW Coeff of Penelope Plt Count MPV Immature Gran % (Auto) Neut % (Auto) Lymph % (Auto) [place] % (Auto) Eos % (Auto) Baso % (Auto) Absolute Neuts (auto) Absolute Lymphs (auto) Nucleated RBC % Sodium Potassium Chloride Carbon Dioxide Anion Gap BUN Creatinine Estim Creat Clear Calc Est GFR (MDRD) Af Amer Est GFR (MDRD) Non-Af BUN/Creatinine Ratio Glucose Hemoglobin A1c 5.6 Calcium Triglycerides Cholesterol LDL Cholesterol VLDL Cholesterol HDL Cholesterol Assessment/Plan All Active Problems Left hand paresthesia (Acute) Back pain (Acute) Chest pain (Acute) The patient is a 58 year old M with PMH anxiety/depression, tobacco abuse, COPD, morbid obesity, ZAN admitted with severe low back pain and dropping objects in the left hand. Per patient he has been almost bedbound with severe low back pain for the past 2 weeks, complains of severe low back pain with pain radiating to the left leg, since yesterday morning patient noticed that he has been dropping things with his left hand but later when he was in the ED he was no longer dropping objects with the left hand. Per ED documentation his NIHSS was 0 on admission. Per patient he lives alone, denies any frequent falls, does not use cane or walker to ambulate. Patient also complains of severe neck pain but denies any headache, dizziness, focal motor weakness, sensory loss, visual disturbances or speech disturbances. Patient does not take any aspirin at baseline. MRI brain done on admission did not show any acute stroke. CTA head/neck did not show any hemodynamically significant stenosis or occlusion. On admission his blood pressure was 194/104 mmHg Impression Possible lumbar radiculopathy Rule out Cervical Radiculopathy vs stenosis Less likely to be vascular event at present Plan -Brain no acute stroke ?CTA head/neck no hemodynamically significant stenosis or occlusion ?Check MRI C-spine without contrast and MRI L-spine without contrast ?Patient may need spine surgery consult based on the MRI cervical and lumbar spine findings. ?Better blood pressure control with a goal of less than 130/80 mmHg, will defer to the hospitalist team ?Stroke risk factors discussed the patient and stroke education provided ?Patient counseled not to smoke cigars or cigarettes ?PT/OT ?GI/DVT prophylaxis ?Fall precautions ?Further medical management per hospitalist team ?Please call with questions if any ?Follow-up with neurology as outpatient in 6 weeks ?Thank you for allowing us to participate in patient's care and management This note has been generated using [employer] dictation software. It may contain incorrect words, spellings and punctuation's that were not noted in the review of the note prior to signing. Code Visit Inpatient E&M: 56240 Init Hosp L3
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
[2019-03-07] MEDS: Acetaminophen 325 MG Tablet 650 MG PO (11:47)
--- NOTE | 2019-03-07 16:51 | RAD_ITS ---
STUDY: X-RAY - PELVIS AND LEFT HIP REASON FOR EXAM: Male, 58 years old. Fall, severe pain left groin, left buttock and left thigh anteriorly. TECHNIQUE: 3 views of the pelvis and hip. COMPARISON: None. FINDINGS: There is a non-specific bowel gas pattern. Surgical coils along the pelvic midline superior to the symphysis pubis. There is mild narrowing with cortical sclerosis and osteophyte formation of the sacroiliac joint consistent with degenerative osteoarthritic changes. Normal bilateral superior and inferior pubic rami. Normal pubic symphysis. Normal bilateral ischial tuberosities. Normal visualized femoral head. There is osteoarthritic spur formation of the bilateral acetabular rim. There is mild articular joint space narrowing of the bilateral hip. RAD/HIP, UNI W/ Pelvis 2-3 Views IMPRESSION: Mild degenerative changes. There is no acute displaced fracture or dislocation. Electronically Signed: Odalis Rosen MD at 4:39 EDT , Service support ,
[2019-03-07] MEDS: oxyCODONE 5 MG Tablet 10 MG PO (17:13)
--- NOTE | 2019-03-07 17:28 | RAD_ITS ---
STUDY: X-RAY CHEST REASON FOR EXAM: Male, 58 years old. Short of breath and cough TECHNIQUE: PA and lateral COMPARISON: November 14, 2015 FINDINGS: Is mild interstitial thickening in the lower lobes. There is no focal infiltration.. There is no demonstrated pleural abnormality. Normal size heart. Normal mediastinum and randy. Normal visualized pulmonary arteries. Normal visualized aortic arch and descending thoracic aorta. Dorsal spine demonstrates mild spondylosis. Normal visualized ribs, clavicles, and shoulders. There is no demonstrated abnormality of the visualized soft tissue structures of the upper abdomen. No significant change since prior exam RAD/Chest PA and Lateral IMPRESSION: Mild chronic interstitial changes. No acute cardiopulmonary pathology. Electronically Signed: Tl Escobedo MD at 18:31 EDT , Service support ,
[2019-03-07] MEDS: predniSONE 20 MG Tablet 60 MG PO (17:45)
[2019-03-07 17:46] LABS: Partial Thromboplast Time 25.6 Seconds (24.1-36.2)
[2019-03-07] MEDS: Polyethylene Glycol 3350 17 GM PACKET PO (17:46)
[2019-03-07] MEDS: Lactated Ringers 1,000 ML 125 ML IV (17:46)
[2019-03-07 18:27] LABS: AST(SGOT) 15 U/L (15-37); Alanine Aminotransfer ALT/SGPT 31 U/L (16-61); Albumin, Serum 3.2 g/dL (3.2-5.0); Alkaline Phosphatase 74 U/L (45-117); Bilirubin, Direct 0.11 mg/dL (0.00-0.30); Globulin 3.7 g/dL (2.2-4.2); Protein, Total 6.9 g/dL (6.4-8.2)
[2019-03-07] MEDS: Acetaminophen 500 MG Tablet 1000 MG PO (22:17)
[2019-03-07] MEDS: Gabapentin 600 MG Tablet PO (22:17)
[2019-03-08] VITALS (14 sets, daily range): BP systolic 132–140; BP diastolic 71–94; PULSE 64–96; RESP 16–20; TEMP 36.4–36.6; O2SAT 89–95
[2019-03-08] MEDS: Lactated Ringers 1,000 ML 125 ML IV ×2 (01:02→09:18)
--- NOTE | 2019-03-08 05:30 | EKG12_ITS ---
Test Reason : AM EKG Blood Pressure : / mmHG Vent. Rate : 081 BPM Atrial Rate : 081 BPM P-R Int : 164 ms QRS Dur : 116 ms QT Int : 396 ms P-R-T Axes : 065 -01 044 degrees QTc Int : 460 ms Normal sinus rhythm Incomplete right bundle branch block Borderline ECG When compared with ECG of 06-MAR-2019 21:09, MANUAL COMPARISON REQUIRED, DATA IS UNCONFIRMED Confirmed by LAURI ROGERS ([id number]), editor managing director KATHY REDD ([id number] on 03/14/2019 1:14:08 PM Referred By: TRACEY STOCK Confirmed By:LAURI ROGERS
[2019-03-08] MEDS: Acetaminophen 500 MG Tablet 1000 MG PO (05:31)
--- NOTE | 2019-03-08 06:03 | CPS ---
Pt. desatted into the low 80's; RN placed pt. on 2L N/C at 0300.
[2019-03-08 06:09] LABS: Hemoglobin 16.6 g/dL (13.0-16.5); Mean Corp Hgb Conc 32.5 g/dL (32-36); Mean Corpuscular Hgb 30.7 pg (27.0-32.0); Mean Corpuscular Volume 94.4 fL (80-94); Mean Platelet Vol. 9.4 fl (6.2-12.0); Platelet Count 154 K/mm3 (150-450); RBC Distribution Width CV 15.2 % (11.6-14.6); White Blood Count 11.4 K/mm3 (4.4-11.0)
[2019-03-08 06:31] LABS: Anion Gap 2 (5-15); BUN 27 mg/dL (7-18); BUN/Creat Ratio 29.2 RATIO (10-20); Calcium,Total 8.7 mg/dL (8.5-10.1); Chloride 109 mmol/L (98-107); Creatinine, Serum 0.92 mg/dL (0.70-1.30); EST Glomerular Filtration Rate 89 mL/min (>60); Est Glom Filt Rate - Afr Amer 108 mL/min (>60); Glucose 154 mg/dL (74-106); Potassium 4.8 mmol/L (3.5-5.1); Sodium Level 141 mmol/L (136-145)
[2019-03-08] MEDS: Ipratropium/Albuterol Sulfate 3 ML AMPUL.NEB INHALATION (06:39)
--- NOTE | 2019-03-08 13:23 | CASEMGMT ---
RN CM Note: Outpt PT recommended. RN CM intro role of CM to patient and discussed. Pt is agreeable. Script completed by physician and faxed to [facility]. Marylu BURCHN RN ACM
--- NOTE | 2019-03-08 13:35 | PN.NEURO_ITS ---
Patient Problems: Active and Suspected Problems Left hand paresthesia (Acute) Back pain (Acute) Subjective: She is overnight. Continues to have low back pain with pain radiating to the left leg. My brain did not show any acute stroke. MRI C-spine showed mild spondylosis most pronounced at C5-C6 and C6-C7, multilevel spinal stenosis secondary to disc disease and bony hypertrophy most severe at C5-C6 with mild narrowing of the central canal and moderate bilateral neuroforaminal stenosis. MRI L-spine did not show any acute fracture or subluxation, showed moderate spondylosis and multilevel disc degeneration, multilevel spinal stenosis secondary to disc disease and bony hypertrophy most severe at L3-L4 with mild right lateral recess and moderate to severe left lateral recess stenosis, moderate right neuroforaminal stenosis and severe narrowing on the left and L4- L5 with moderate bilateral neuroforaminal stenosis. - Physical Exam General: Alert HEENT: Normocephalic Neck: Supple Lungs: Normal air movement Cardiovascular: Normal S1, Normal S2 Abdomen: Bowel Sounds Present Extremities: No cyanosis Neurological: - - Conscious, alert, CN II through XII grossly intact, power 5 x 5 both upper extremities, right lower extremity, left lower extremity power testing is limited due to the severe low back pain and patient unable to lift left leg secondary to back pain, no sensory loss no cerebellar signs, gait deferred, reflexes + B/L B/S/T/K/A Psych/Mental Status: Normal Affect Vital Signs Temp Pulse Resp BP Pulse Ox 97.6 F L 64 16 134/85 H 91 03/08/19 08:16 03/08/19 08:16 03/08/19 08:16 03/08/19 08:16 03/08/19 11:35 Oxygen Flow Rate (L/min) 2 Oxygen Delivery Method Nasal Cannula Weight: 151.1 kg Body Mass Index (BMI) 43.9 Intake and Output for Last 24 Hours 03/06/19 03/07/19 03/08/19 23:59 23:59 23:59 Intake Total 1257.08 / 1257.08 1131.25 / 1131.25 Output Total 1200 / 1200 975 / 975 Balance 57.08 / 57.08 156.25 / 156.25 Laboratory Tests Past 24 Hrs 03/07/19 03/07/19 03/08/19 17:19 17:19 05:40 WBC 11.4 H RBC 5.40 Hgb 16.6 H Hct 51.0 MCV 94.4 H MCH 30.7 MCHC 32.5 RDW Std Deviation 53.0 H RDW Coeff of Penelope 15.2 H Plt Count 154 MPV 9.4 PT 13.0 INR 1.0 APTT 25.6 Sodium Potassium Chloride Carbon Dioxide Anion Gap BUN Creatinine Estim Creat Clear Calc Est GFR (MDRD) Af Amer Est GFR (MDRD) Non-Af BUN/Creatinine Ratio Glucose Calcium Total Bilirubin 0.30 Direct Bilirubin 0.11 AST 15 ALT 31 Alkaline Phosphatase 74 Total Protein 6.9 Albumin 3.2 Globulin 3.7 03/08/19 05:40 WBC RBC Hgb Hct MCV MCH MCHC RDW Std Deviation RDW Coeff of Penelope Plt Count MPV PT INR APTT Sodium 141 Potassium 4.8 Chloride 109 H Carbon Dioxide 30.0 Anion Gap 2 L BUN 27 H Creatinine 0.92 Estim Creat Clear Calc 97.70 Est GFR (MDRD) Af Amer 108 Est GFR (MDRD) Non-Af 89 BUN/Creatinine Ratio 29.2 H Glucose 154 H Calcium 8.7 Total Bilirubin Direct Bilirubin AST ALT Alkaline Phosphatase Total Protein Albumin Globulin Medical Necessity - Tobacco Use Smoking Status: Current every day smoker Tobacco Use: Cigarettes, Cigars Assessment/Plan All Active Problems Left hand paresthesia (Acute) Back pain (Acute) Chest pain (Acute) The patient is a 58 year old M with PMH anxiety/depression, tobacco abuse, COPD, morbid obesity, ZAN admitted with severe low back pain and dropping objects in the left hand. Per patient he has been almost bedbound with severe low back pain for the past 2 weeks, complains of severe low back pain with pain radiating to the left leg, since yesterday morning patient noticed that he has been dropping things with his left hand but later when he was in the ED he was no longer dropping objects with the left hand. Per ED documentation his NIHSS was 0 on admission. Per patient he lives alone, denies any frequent falls, does not use cane or walker to ambulate. Patient also complains of severe neck pain but denies any headache, dizziness, focal motor weakness, sensory loss, visual disturbances or speech disturbances. Patient does not take any aspirin at baseline. MRI brain done on admission did not show any acute stroke. CTA head/neck did not show any hemodynamically significant stenosis or occlusion. On admission his blood pressure was 194/104 mmHg Impression Possible lumbar radiculopathy?lumbar stenosis Cervical stenosis Less likely to be vascular event at present Plan -MRI brain no acute stroke ?CTA head/neck no hemodynamically significant stenosis or occlusion ?MRI C-spine showed mild spondylosis most pronounced at C5-C6 and C6-C7, multilevel spinal stenosis secondary to disc disease and bony hypertrophy most severe at C5-C6 with mild narrowing of the central canal and moderate bilateral neuroforaminal stenosis. ?MRI L-spine did not show any acute fracture or subluxation, showed moderate spondylosis and multilevel disc degeneration, multilevel spinal stenosis secondary to disc disease and bony hypertrophy most severe at L3-L4 with mild right lateral recess and moderate to severe left lateral recess stenosis, moderate right neuroforaminal stenosis and severe narrowing on the left and L4- L5 with moderate bilateral neuroforaminal stenosis. ?Spine surgery consult ?Patient might benefit with therapy, pain management consult and possible epidural injection. May also benefit with a trial of gabapentin. ?Better blood pressure control with a goal of less than 130/80 mmHg, will defer to the hospitalist team ?Stroke risk factors discussed the patient and stroke education provided ?Patient counseled not to smoke cigars or cigarettes ?PT/OT ?GI/DVT prophylaxis ?Fall precautions ?Further medical management per hospitalist team ?Please call with questions if any ?Follow-up with neurology as outpatient in 6 weeks ?Thank you for allowing us to participate in patient's care and management This note has been generated using [employer] dictation software. It may contain incorrect words, spellings and punctuation's that were not noted in the review of the note prior to signing.
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
--- NOTE | 2019-03-08 14:45 | RAD_ITS ---
STUDY: X-RAY - LUMBAR SPINE REASON FOR EXAM: Male, 58 years old. L5-S1 block and surgery TECHNIQUE: 2 view(s) of the lumbar spine were obtained. COMPARISON: None FINDINGS: 2 images were submitted, as radiology support for c-arm imaging in the operating room. This is not a diagnostic examination. Images for documentation purposes only. Fluoroscopy time if reported: Accompanying paperwork is not legible. RAD/Spine 1 View Any Level IMPRESSION: Intraoperative fluoroscopic image guidance. Electronically Signed: Odalis Rosen MD at 6:30 EDT , Service support ,
[2019-03-08] MEDS: Triamcinolone Acetonide 40 MG/ML Vial (15:06)
--- NOTE | 2019-03-08 16:37 | DCINST_ITS ---
- Discharge Diagnoses Current Active Problems: Current Active and Chronic Problems Left hand paresthesia (Acute) Back pain (Acute) You will use the following diet at home:: Other - Try an lose some weight - it will help with the back pain. Arthritis and back pain tend to get worse as we age. Losing weight will help to take the load off the low back and strenghtening the abdominal muscles will help with the back pain as well. After you finish PT it will be important to continue the exercise routine EVERY DAY to keep the muscles strong and the back supported. Your food should be the consistency of: Regular Your liquids should be the consistency of: Regular/Thin Discharge Activity: - - activity as tolerated. Do not lift more than 5-10 lbs. Use the walker to help maintain your balance and prevent falls. Bending, lifting and twisting all increase back pain. Do Not sit for longer than 1 hour without getting up and walking. Weight Bearing Status: Weight bearing as tolerated Lifting Restrictions: 5-10 lbs Call your doctor if you observe: Fever of 101 or Higher, Dizziness, Chest pain, Uncontrolled pain, - - falls Instructions: Eating Healthy, Low-Fat Cooking Tips, Weight Management: Fact and Fiction, MyPlate Worksheet: 2,000 Calories Additional Instructions: You still have sleep apnea. If you are able to get insurance I recommend you get another sleep study and an appropriate mask. Take the Naprosy twice a day for the next 2 weeks and after that if the back pain has improved significantly you can take it as needed. Naprosyn is an anti- inflammatory as well as a. pain reliever. Allergies/Adverse Reactions: Allergies codeine Allergy (Verified 03/04/19 01:55) Hives Iodinated Contrast Media [Iodinated Contrast Media - IV Dye] Allergy (Verified 03/04/19 01:55) Hives methylphenidate [From Ritalin] Adverse Reaction (Verified 03/04/19 01:55) Other ANTIDEPRESSANTS Adverse Reaction (Uncoded 03/04/19 01:55) Other Medications to take at Discharge Gabapentin [Neurontin] 300 mg PO TIDCM #120 cap 03/08/19 Naproxen Sodium [Aleve] 440 mg PO BID #120 tab 03/08/19 traMADol [Ultram] 50 mg PO Q6H PRN PRN 7 Days #28 tab 03/08/19 The following prescriptions were given: Naproxen Sodium [Aleve] 440 mg PO BID #120 tab Prescription Printed Gabapentin [Neurontin] 300 mg PO TIDCM #120 cap Prescription Printed traMADol [Ultram] 50 mg PO Q6H PRN PRN 7 Days #28 tab PRN Reason: Pain Prescription Printed Orders to be completed after discharge: Physical Therapy Evaluation Location: None Selected Primary Care Physician: Care Physician,No Primary [Primary Care Provider] - Test Results: Test results from this visit will be discussed in further detail at your follow- up appointment, if applicable. Please Follow Up With: the [facility] When: as needed - they treat people without insurance and they are a free clinic Proposed Discharge Date: 03/08/19
--- NOTE | 2019-03-08 16:53 | PCM.DC.SUM ---
Discharge Date and Diagnosis - Problem List Patient Problems: Active and Suspected Problems S/P epidural steroid injection (Acute) Radiculitis of leg (Acute) Back pain (Acute) Date of Admission: 03/06/19 Date of Discharge: 03/08/19 - Primary Discharge Diagnosis Active and Suspected Problems Back pain (Acute) Radiculitis of leg (Acute) S/P Lumbar epidural steroid injection (Acute) - Secondary Discharge Diagnosis Chronic Problems Lumbar canal stenosis (Chronic) Foraminal stenosis of lumbosacral region (Chronic) Left hand paresthesia (Chronic) Anxiety (Chronic) COPD (chronic obstructive pulmonary disease) (Chronic) Obstructive sleep apnea (Chronic) - non-complaint with CPAP Cervical foraminal stenosis with transient paresthesias of the hands due to nerve compression Morbid obesity PTSD Polycythemia - likely related to tobacco dependence, COPD an untreated ZAN Hospital Course and Treatment Imaging Results: 03/08/19 14:45 OR-Steroi/Epid Inj/Lum Sac/1st [RAD] Routine Spine 1 View Any Level [RAD] Routine Clinical Impression(s) from Imaging Studies Brain CT 03/06/19 15:12 IMPRESSION: Mild periventricular white matter ischemic change. No evidence for acute bleed. If concern for acute infarct MRI recommended. Electronically Signed: Tl Escobedo MD at 16:13 EDT , Service support , Lumbar Spine X-Ray 03/06/19 15:13 IMPRESSION: Scoliosis and degenerative changes. Electronically Signed: Tl Escobedo MD at 16:06 EDT , Service support , Head/Neck CTA 03/06/19 16:33 IMPRESSION: Normal CTA Head and neck with contrast. Electronically Signed: Tl Escobedo MD at 18:25 EDT , Service support , Brain MRI 03/07/19 08:30 IMPRESSION: Normal unenhanced MRI of the brain. Electronically Signed: Teresa Yoo at 10:12 EDT Tel , Service support , Cervical Spine MRI 03/07/19 10:51 IMPRESSION: Mild spondylosis most pronounced at C5-6 and C6-7.. Multilevel spinal stenosis secondary to disc disease and bony hypertrophy most severe at C5-6 Electronically Signed: Tl Escobedo MD at 16:17 EDT , Service support , Lumbar Spine MRI 03/07/19 10:51 IMPRESSION: No evidence for acute fracture or subluxation. Moderate spondylosis and multilevel disc degeneration. Multilevel spinal stenosis secondary to disc disease and bony hypertrophy most severe at L3-4 and L4-5. Findings as above Electronically Signed: Tl Escobedo MD at 16:26 EDT , Service support , Hip/Pelvis X-Ray 03/07/19 16:51 IMPRESSION: Mild degenerative changes. There is no acute displaced fracture or dislocation. Electronically Signed: Odalis Rosen MD at 4:39 EDT , Service support , Chest X-Ray 03/07/19 17:28 IMPRESSION: Mild chronic interstitial changes. No acute cardiopulmonary pathology. Electronically Signed: Tl Escobedo MD at 18:31 EDT , Service support , Laboratory Results - last 24 hr 03/07/19 03/07/19 03/08/19 17:19 17:19 05:40 WBC 11.4 H RBC 5.40 Hgb 16.6 H Hct 51.0 MCV 94.4 H MCH 30.7 MCHC 32.5 RDW Std Deviation 53.0 H RDW Coeff of Penelope 15.2 H Plt Count 154 MPV 9.4 PT 13.0 INR 1.0 APTT 25.6 Sodium Potassium Chloride Carbon Dioxide Anion Gap BUN Creatinine Estim Creat Clear Calc Est GFR (MDRD) Af Amer Est GFR (MDRD) Non-Af BUN/Creatinine Ratio Glucose Calcium Total Bilirubin 0.30 Direct Bilirubin 0.11 AST 15 ALT 31 Alkaline Phosphatase 74 Total Protein 6.9 Albumin 3.2 Globulin 3.7 03/08/19 05:40 WBC RBC Hgb Hct MCV MCH MCHC RDW Std Deviation RDW Coeff of Penelope Plt Count MPV PT INR APTT Sodium 141 Potassium 4.8 Chloride 109 H Carbon Dioxide 30.0 Anion Gap 2 L BUN 27 H Creatinine 0.92 Estim Creat Clear Calc 97.70 Est GFR (MDRD) Af Amer 108 Est GFR (MDRD) Non-Af 89 BUN/Creatinine Ratio 29.2 H Glucose 154 H Calcium 8.7 Total Bilirubin Direct Bilirubin AST ALT Alkaline Phosphatase Total Protein Albumin Globulin Dr. Michele Mejia-neurology Dr. Oneida Moran-pain management/anesthesia Operations: None Procedures: 2-D Echocardiogram - Interpretation Summary The study was technically difficult. Diluted definity 4ml given slow IV push to enhance endocardial definition. Performed a rapid injection of agitated mix of 9 cc saline and 1cc air to assess for atrial septal defect. Bubble contrast study negative for right to left interatrial shunt. The estimated ejection fraction is 60 %. The study was technically difficult., - - steroid epidural injection LS spine 03/08/19 Summary of Care Provided: The patient is a 58-year-old male with a past medical history of anxiety, COPD, tobacco dependence, morbid obesity and obstructive sleep apnea(non-compliant with CPAP) who presented to the emergency department at [facility] on 03/06/2019 complaining of back pain after falling walking his dogs 2 weeks prior to coming to the emergency department. He also reported episodes of dropping things with his left hand without feeling the objects fall. He was seen in the emergency department by Dr. Urbina on 03/04/2019 complaining of back pain radiating into the buttock, anterior thigh and lateral hip area. He was given a prescription for Percocet, #12 tablets, and prednisone 60 mg for 3 days. He was seen by Dr. Fairchild on 03/02/[address] of [address] scan of the abdomen and pelvis done on 03/02/2019 showed prostatic calcifications and was otherwise unremarkable. He had multiple bowel movements following the ER visit and his abdominal pain resolved. Lumbar spine x-rays on 03/06/2019 showed scoliosis and degenerative changes with no evidence for acute fracture or subluxation. Lab at presentation to the emergency room on 03/06/2019 showed a normal white blood cell count of 10.9 with an unremarkable differential. Hemoglobin was 18.7, up from 17.8 on 03/02/2019. BMP showed an elevated BUN at 20 with a creatinine of 0.96. A noncontrasted CT brain showed mild periventricular white matter ischemic change with no evidence for acute bleed. CTA of the head and neck was normal. He was admitted to a monitored bed on PCU with possible CVA and Dr. Mejia was consulted. MRI of the brain was done on 03/07/2019 and was normal. MRI's of the cervical and thoracic spine were ordered by Dr. Mejia. He was started on Gabapentin and high dose Prednisone. MRI of the lumbar spine showed no evidence for acute fracture or subluxation. There was moderate spondylosis and multilevel degenerative disc disease. There was mild multilevel spinal stenosis secondary to disc disease and bony hypertrophy, most severe at L3-4 and L4-5. MRI of the cervical spine showed mild spondylosis most pronounced at C5-6 and see 6?7. There was mild multilevel spinal stenosis secondary to disc disease and bony hypertrophy, most severe at C5-6. Dr. Moran was consulted for pain management and the patient went for a lumbosacral steroid epidural injection on 03/08/2019. With the Gabapentin he was able to sleep well the night preceding DC without frequent awakening due to pain. He was seen by PT and OT during his hospital stay and was able to ambulate 25 feet with a front wheeled walker prior to discharge. Outpatient therapy for a back program and core strengthening was recommended. He requested to be discharged on 03/08/19 after the epidural. His back pain was improved. He was discharged with prescriptions for tramadol 50 mg p.o. every 6 hours as needed pain, Gabapentin 300 mg BID and 600 mg at bedtime and Naprosyn 440 mg BID with food. He was given a requisition for OP PT. He was also given a requisition for a FWW. Smoking cessation counselling was given in the hospital. He was advised to lose weight to decrease the stress on his back. While in the hospital he also had a overnight trending pulse ox and had 40 desaturation events over 3 minutes and 75 desaturation events of less than 3 minutes. The mean high was 93.5% and the mean low was 87.3%. I recommended when he is able to obtain insurance that he follow up in the pulmonary clinic for a new sleep study and PFT's. PHYSICAL EXAM: GENERAL: alert, oriented X 3, Cooperative, NAD ORAL: moist mucosa, no mucosal lesions NECK: No JVD, supple, trachea midline LUNGS: CTA, symmetric chest expansion, diminished HEART: RRR, Normal S1 and S2, no rub, no gallop, no murmur ABDOMEN: soft, NT, ND, obese, BS present, no guarding with palpation EXTREMITIES: no edema, no cyanosis, no calf tenderness SKIN: No rashes, no breakdown NEUROLOGIC: Cranial nerves II-XII grossly intact, Neuro grossly intact, - - + SLR on the left at 20 to 30 degrees. Also has increased pain with flexion and external rotation of the hip. Unable to lift his left leg off the bed due to severe pain. Was able to walk 25 feet with a front wheeled walker with a slow pace, short step length bilaterally and increased weightbearing on his upper extremities to alleviate back pain. Pain was more tolerable when using the walker. PSYCH: appropriate, normal affect, pleasant This note was generated with [employer] dictation software. It may contain incorrect words, spelling, and punctuation that were not noted in checking the note before signing. Patient Problems: Active and Suspected Problems S/P epidural steroid injection (Acute) Radiculitis of leg (Acute) Back pain (Acute) - Physical Exam Vital Signs Temp Pulse Resp BP Pulse Ox 97.8 F 82 16 138/87 H 93 03/08/19 16:04 03/08/19 16:04 03/08/19 16:04 03/08/19 16:04 03/08/19 16:04 Oxygen Flow Rate (L/min) 2 Oxygen Delivery Method Room Air Weight: 333 lb 1.895 oz Body Mass Index (BMI) 43.9 Intake and Output for Last 24 Hours 03/06/19 03/07/19 03/08/19 23:59 23:59 23:59 Intake Total 1257.08 / 1257.08 1131.25 / 1131.25 Output Total 1200 / 1200 1325 / 1325 Balance 57.08 / 57.08 -193.75 / -193.75 Laboratory Tests Past 24 Hrs 03/07/19 03/07/19 03/08/19 17:19 17:19 05:40 WBC 11.4 H RBC 5.40 Hgb 16.6 H Hct 51.0 MCV 94.4 H MCH 30.7 MCHC 32.5 RDW Std Deviation 53.0 H RDW Coeff of Penelope 15.2 H Plt Count 154 MPV 9.4 PT 13.0 INR 1.0 APTT 25.6 Sodium Potassium Chloride Carbon Dioxide Anion Gap BUN Creatinine Estim Creat Clear Calc Est GFR (MDRD) Af Amer Est GFR (MDRD) Non-Af BUN/Creatinine Ratio Glucose Calcium Total Bilirubin 0.30 Direct Bilirubin 0.11 AST 15 ALT 31 Alkaline Phosphatase 74 Total Protein 6.9 Albumin 3.2 Globulin 3.7 03/08/19 05:40 WBC RBC Hgb Hct MCV MCH MCHC RDW Std Deviation RDW Coeff of Penelope Plt Count MPV PT INR APTT Sodium 141 Potassium 4.8 Chloride 109 H Carbon Dioxide 30.0 Anion Gap 2 L BUN 27 H Creatinine 0.92 Estim Creat Clear Calc 97.70 Est GFR (MDRD) Af Amer 108 Est GFR (MDRD) Non-Af 89 BUN/Creatinine Ratio 29.2 H Glucose 154 H Calcium 8.7 Total Bilirubin Direct Bilirubin AST ALT Alkaline Phosphatase Total Protein Albumin Globulin Discharge Activity: - - activity as tolerated. Do not lift more than 5-10 lbs. Use the walker to help maintain your balance and prevent falls. Bending, lifting and twisting all increase back pain. Do Not sit for longer than 1 hour without getting up and walking. Weight Bearing Status: Weight bearing as tolerated Call your doctor if you observe: Fever of 101 or Higher, Dizziness, Chest pain, Uncontrolled pain, - - falls Home Medications: Medications to take at Discharge Gabapentin [Neurontin] 300 mg PO TIDCM #120 cap 03/08/19 Naproxen Sodium [Aleve] 440 mg PO BID #120 tab 03/08/19 traMADol [Ultram] 50 mg PO Q6H PRN PRN 7 Days #28 tab 03/08/19 Following Prescrptions Were Given to Patient: Naproxen Sodium [Aleve] 440 mg PO BID #120 tab Prescription Printed Gabapentin [Neurontin] 300 mg PO TIDCM #120 cap Prescription Printed traMADol [Ultram] 50 mg PO Q6H PRN PRN 7 Days #28 tab PRN Reason: Pain Prescription Printed Other Amb Orders: Physical Therapy Evaluation Location: None Selected Primary Care Physician: Care Physician,No Primary [Primary Care Provider] - Please Follow Up With: the [facility] When: as needed - they treat people without insurance and they are a free clinic Patient Instructions: Low-Fat Cooking Tips, Eating Healthy, Weight Management: Fact and Fiction, MyPlate Worksheet: 2,000 Calories Disposition: Home Minutes spent on discharge:: 30 Medical Necessity - Tobacco Use Smoking Status: Current every day smoker Tobacco Use: Cigarettes, Cigars Meaningful Use Info Meaningful Use Diagnoses (Choose all that apply): None applicable Code Visit Inpatient E&M: 77826 Disch Hosp
--- NOTE | 2019-03-09 13:43 | CASEMGMT ---
Case Management DC F/u call: DC Date: 03/08/19 DC Diagnosis: S/P epidural steroid injection (Acute), Radiculitis of leg (Acute), Back pain (Acute) DC Disposition: Home LACE/STRATA: 04/30 Called patient at listed Cell phone on demographics and states now is not a good time to speak. [facility] will call this Cm back and [facility] has CM contact number on his phone with last 4digits of number verified. Shady Hayden RNCM
== END 2019-03-08 17:37 | disposition home or self-care (01) | DRG 552 ==
LOC: ED 15:35 → PCU 03-07 01:10
PROVIDERS: Anesthesiology Pain Medicine; Psychiatry & Neurology Neurology; Admitting Provider Family Medicine; Emergency Provider Emergency Medicine; Visit Provider Internal Medicine
PROC: 3E0S3BZ Introduction of Anesthetic Agent into Epidural Space, Percutaneous Approach (ICD-10-PCS; CPT 62322; principal; 2019-03-08 14:25)
DX: M47.26 Other spondylosis with radiculopathy, lumbar region (principal); Z68.41 Body mass index [BMI] 40.0-44.9, adult; M54.42 Lumbago with sciatica, left side; M48.061 Spinal stenosis, lumbar region without neurogenic claudication; M48.07 Spinal stenosis, lumbosacral region; M48.02 Spinal stenosis, cervical region; G89.29 Other chronic pain; D75.1 Secondary polycythemia; E86.0 Dehydration; J44.9 Chronic obstructive pulmonary disease, unspecified; E66.01 Morbid (severe) obesity due to excess calories; F32.9 Major depressive disorder, single episode, unspecified; F41.9 Anxiety disorder, unspecified; G47.33 Obstructive sleep apnea (adult) (pediatric); F17.210 Nicotine dependence, cigarettes, uncomplicated; Z91.19 Patient's noncompliance with other medical treatment and regimen; Z79.899 Other long term (current) drug therapy
CPT/HCPCS: 36415; 64483; 70450; 70496; 70498; 70551; 71046; 72020; 72100; 72141; 72148; 73502; 80048; 80061; 80076; 83036; 85025; 85027; 85610; 85730; 93005; 93306; 94640; 94762; 97162; 97166; 97530; 99283; 99406; J7120; Q9957; Q9967; A4216; C8929; J2405

== ENCOUNTER 2019-07-16 13:31 | Observation (INO) | payer BC, SELFPAY ==
[2019-03-07 23:43] VITALS: BMI 43.9
[2019-07-16 13:32] VITALS: BP 155/107; PULSE 118; RESP 20; TEMP 36.3; O2SAT 95; BMI 46.1
--- NOTE | 2019-07-16 14:21 | ED.VISSUMM ---
- ER Visit Summary Date of Service: 07/16/19 Chief Complaint: Back pain History of Present Illness: The patient is a 58 M presenting with back pain. He states this has been ongoing for months but has worsened since yesterday. He has had difficulty ambulating secondary to pain. He had difficulty getting dressed. His family convinced him to come to the hospital. He denies recent injury. He does not take pain medication at home. He uses medical marijuana. He states that he was moving slower was unable to get to the bathroom and urinated on himself. He did have the urge to urinate and was just unable to get to the bathroom in time. Physical Examination: Vitals are stable. Patient is afebrile. Alert no acute distress. HEENT exam is unremarkable. Neck is supple. Lungs are clear and equal bilaterally. Heart is regular rate and rhythm. Abdomen is soft obese nontender nondistended. Back: Right lower back tenderness, straight leg raise positive bilaterally. Extremities are unremarkable. Skin is warm and dry. No focal neurologic deficit. Normal strength and sensation Remainder of exam is unremarkable. Emergency Department Course and Treatment: Patient was given morphine, Zofran IV. CBC, chemistries unremarkable. Patient was given Valium. He was given additional dose of morphine. He continues to be unable to sit or stand. He states his pain is improved when laying flat. It takes multiple people to help sit him up. Discussed with the hospitalist for admission. Disposition: Admission Impression: Intractable back pain This note was generated with [employer] dictation software. It may contain incorrect words, spelling, and punctuation that were not noted in review of the chart prior to signing ED Disposition - Plan for ED Patient: Referrals: Care Physician,No Primary [Primary Care Provider] -
[2019-07-16] MEDS: Morphine 4 MG/ML Syringe IV ×2 (14:28→15:41)
[2019-07-16] MEDS: Ondansetron 4 MG/2 ML Vial IV (14:29)
[2019-07-16 14:39] LABS: Absolute Lymphocyte Count 1.65 X10^3/uL (0.83-4.51); Absolute Neutrophil Count 5.7 X10^3/uL (2.0-7.7); Basophil# 0.06 X10^3/uL; Basophil% 0.7 % (0-1); Eosinophil# 0.26 X10^3/uL; Eosinophils% 3.1 % (0-5); Lymphocyte # 1.65 X10^3/ul (4.0); Lymphocyte % 19.7 % (19-41); Mean Corp Hgb Conc 32.4 g/dL (32-36); Mean Corpuscular Hgb 30.6 pg (27.0-32.0); Mean Corpuscular Volume 94.6 fL (80-94); Mean Platelet Vol. 9.6 fl (6.2-12.0); Monocyte% 8.4 % (0-10); NRBC Flagged by Analyzer 0 % (0-5); Neutrophil # 5.65 X10^3/uL (2.7-7.7); Neutrophil % 67.6 % (47-70); Platelet Count 164 K/mm3 (150-450); RBC Distribution Width CV 14.3 % (11.6-14.6); RBC Distribution Width SD 50.1 fl (35.1-43.9); Red Blood Count 5.91 M/mm3 (4.6-6.2); White Blood Count 8.4 K/mm3 (4.4-11.0)
[2019-07-16 14:45] LABS: Hematocrit 55.9 % (40-54)
[2019-07-16 14:46] LABS: Hemoglobin 18.1 g/dL (13.0-16.5)
[2019-07-16 14:50] LABS: Anion Gap 2 (5-15); BUN 12 mg/dL (7-18); Calcium,Total 9.1 mg/dL (8.5-10.1); Chloride 105 mmol/L (98-107); EST Glomerular Filtration Rate 81 mL/min (>60); Est Glom Filt Rate - Afr Amer 98 mL/min (>60); Estimated Creatinine Clearance 89.89 ml/min; Glucose 102 mg/dL (74-106); Potassium 4.6 mmol/L (3.5-5.1); Sodium Level 139 mmol/L (136-145)
--- NOTE | 2019-07-16 15:33 | NURSING ---
MED SURG [facility] INTRACTABLE BACK PAIN
[2019-07-16] MEDS: diazePAM 5 MG Tablet PO (15:41)
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
[2019-07-16 17:15] VITALS: BP 144/91; PULSE 102; RESP 16; TEMP 37.1; O2SAT 94
[2019-07-16 17:33] VITALS: BMI 45.6
[2019-07-16 18:39] VITALS: BMI 45.6
[2019-07-16] MEDS: oxyCODONE 5 MG Tablet PO (18:52)
[2019-07-16] MEDS: Ketorolac 30 MG/ML Syringe IV (20:25)
[2019-07-16] MEDS: tiZANidine HCl 2 MG Tablet PO (20:25)
[2019-07-16] MEDS: Gabapentin 100 MG Capsule 200 MG PO (20:25)
[2019-07-16] MEDS: 0.9% Saline Lock 10 ML Syringe IV (20:26)
[2019-07-16 20:33] VITALS: BP 108/67; PULSE 102; RESP 16; TEMP 36.7; O2SAT 94
[2019-07-17] MEDS: Acetaminophen 325 MG Tablet 650 MG PO (02:02)
[2019-07-17 02:06] VITALS: BP 140/81; PULSE 102; RESP 18; TEMP 37.5; O2SAT 94
[2019-07-17 02:26] VITALS: PULSE 117; RESP 21; O2SAT 93
[2019-07-17] MEDS: oxyCODONE 5 MG Tablet PO ×2 (04:27→09:01)
[2019-07-17 05:36] LABS: Absolute Lymphocyte Count 1.51 X10^3/uL (0.83-4.51); Absolute Neutrophil Count 5.8 X10^3/uL (2.0-7.7); Basophil# 0.06 X10^3/uL; Basophil% 0.7 % (0-1); Eosinophil# 0.24 X10^3/uL; Eosinophils% 2.9 % (0-5); Hematocrit 49.1 % (40-54); Hemoglobin 15.3 g/dL (13.0-16.5); Lymphocyte # 1.51 X10^3/ul (4.0); Lymphocyte % 18.1 % (19-41); Mean Corp Hgb Conc 31.2 g/dL (32-36); Mean Corpuscular Hgb 29.6 pg (27.0-32.0); Mean Platelet Vol. 9.4 fl (6.2-12.0); Monocyte# 0.69 X10^3/uL; Monocyte% 8.3 % (0-10); NRBC Flagged by Analyzer 0 % (0-5); Neutrophil # 5.82 X10^3/uL (2.7-7.7); Neutrophil % 69.6 % (47-70); Platelet Count 147 K/mm3 (150-450); RBC Distribution Width CV 14.4 % (11.6-14.6); RBC Distribution Width SD 50.3 fl (35.1-43.9); Red Blood Count 5.17 M/mm3 (4.6-6.2); White Blood Count 8.4 K/mm3 (4.4-11.0)
[2019-07-17 05:52] LABS: Prothrombin Time (Protime)PT. 12.9 SECONDS (11.7-14.9)
[2019-07-17 05:58] LABS: Anion Gap 3 (5-15); BUN 19 mg/dL (7-18); Calcium,Total 8.3 mg/dL (8.5-10.1); Chloride 106 mmol/L (98-107); Creatinine, Serum 1.27 mg/dL (0.70-1.30); EST Glomerular Filtration Rate 62 mL/min (>60); Est Glom Filt Rate - Afr Amer 75 mL/min (>60); Estimated Creatinine Clearance 70.78 ml/min; Glucose 139 mg/dL (74-106); Potassium 4.3 mmol/L (3.5-5.1); Sodium Level 138 mmol/L (136-145)
[2019-07-17] MEDS: tiZANidine HCl 2 MG Tablet PO (06:02)
[2019-07-17] MEDS: Ketorolac 30 MG/ML Syringe IV (06:02)
[2019-07-17] MEDS: 0.9% Saline Lock 10 ML Syringe IV (06:03)
[2019-07-17 08:49] VITALS: BP 146/91; PULSE 98; RESP 18; TEMP 36.8; O2SAT 94
[2019-07-17] MEDS: Gabapentin 100 MG Capsule 200 MG PO ×2 (08:59→11:48)
--- NOTE | 2019-07-17 10:08 | DCINST_ITS ---
You will use the following diet at home:: Regular Your food should be the consistency of: Regular Discharge Activity: Return to Normal Activity Weight Bearing Status: Weight bearing as tolerated Call your doctor if you observe: Fever of 101 or Higher, Shortness of breath, Dizziness, Fainting spells, Chest pain, Increased palpitations (irregular heartbeat), Uncontrolled pain Allergies/Adverse Reactions: Allergies codeine Allergy (Verified 07/16/19 13:34) Hives Iodinated Contrast Media [Iodinated Contrast Media - IV Dye] Allergy (Verified 07/16/19 13:34) Hives methylphenidate [From Ritalin] Adverse Reaction (Verified 07/16/19 17:32) Other hallucinations ANTIDEPRESSANTS Adverse Reaction (Uncoded 07/16/19 17:32) Other catatonic states Medications to take at Discharge Gabapentin [Neurontin] 200 mg PO TIDCM #90 cap 07/17/19 Oxycodone [Oxyir] 5 mg PO Q8H PRN PRN 5 Days #14 tablet 07/17/19 Prednisone 40 mg PO DAILY #10 tab 07/17/19 Senna/Docusate Sodium [Senokot-S, Katerine-Colace] 2 tab PO BID #30 tab 07/17/19 cycloBENZAPRine HCl [Flexeril] 10 mg PO TID PRN PRN #20 tab 07/17/19 The following prescriptions were given: cycloBENZAPRine HCl [Flexeril] 10 mg PO TID PRN PRN #20 tab PRN Reason: Muscle Spasm Transmission Status: Pending to [id number] Gabapentin [Neurontin] 200 mg PO TIDCM #90 cap Transmission Status: Pending to [id number] Oxycodone [Oxyir] 5 mg PO Q8H PRN PRN 5 Days #14 tablet PRN Reason: Pain Score 6-10/10 Transmission Status: Received by [id number] Prednisone 40 mg PO DAILY #10 tab Transmission Status: Pending to [id number] Senna/Docusate Sodium [Senokot-S, Katerine-Colace] 2 tab PO BID #30 tab Transmission Status: Pending to [id number] Primary Care Physician: Care Physician,No Primary [Primary Care Provider] - Please follow up with your Primary Care Physician in: 1 week. Test Results: Test results from this visit will be discussed in further detail at your follow- up appointment, if applicable. Please Follow Up With: Oneida Moran MD When: 1-2 weeks.
[2019-07-17 11:55] VITALS: BP 153/86; PULSE 86; RESP 18; TEMP 37.1; O2SAT 94
--- NOTE | 2019-07-17 14:41 | DS.PCM_ITS ---
Discharge Date and Diagnosis Date of Admission: 07/16/19 Date of Discharge: 07/17/19 - Primary Discharge Diagnosis #1 acute on chronic intractable low back pain due to severe spinal stenosis. #2 difficulty ambulating, improved. #3 polycythemia, likely due to COPD and chronic hypoxia. Hemoglobin improved. - Secondary Discharge Diagnosis Chronic Problems Lumbar canal stenosis (Chronic) Foraminal stenosis of lumbosacral region (Chronic) Left hand paresthesia (Chronic) Anxiety (Chronic) COPD (chronic obstructive pulmonary disease) (Chronic) Obstructive sleep apnea (Chronic) Hospital Course and Treatment Imaging Results: Clinical Impression(s) from Imaging Studies Lumbar Spine X-Ray 07/16/19 16:45 IMPRESSION: 1. Degenerative disc disease and facet arthropathy, similar since the prior study. Electronically Signed: Óscar Sellers MD (Brooks) at 19:47 EST , Service support , Operations: None Procedures: None Summary of Care Provided: Patient seen and examined on the day of discharge and appeared to be stable to be discharged home. His back pain significantly improved and he was able to ambulate to the bathroom. He does have a history of spinal canal stenosis status post epidural steroid injection 3 months ago. His vital signs are stable. The patient is a 58 year old M patient presented to the emergency room because of intractable low back pain. He had a history of severe spinal stenosis and he underwent epidural steroid injection back on February,. He had MRI lumbar spine done on February, that revealed moderate spondylosis and multilevel disc degeneration with multilevel spinal canal stenosis at L3-L4, L4 and L5. His routine blood work was remarkable for hemoglobin of 18.1 g/dL which is likely due to chronic hypoxia secondary to COPD in addition to hemoconcentration. He received IV fluids and hemoglobin came down to normal. X-ray of the lumbar spine revealed multilevel endplate spondylosis of the lumbar vertebrae, disc space narrowing at L2-L3, L3-L4. Patient was treated with IV steroids, IV pain medications, gabapentin and Flexeril. Today, patient mentioned that his pain is significantly improved and he was able to ambulate. He was discharged home in a stable medical condition, discharged on prednisone 40 mg p.o. daily for 5 days, gabapentin 200 mg p.o. 3 times daily, discharged on OxyIR PRN and Flexeril as needed, recommended follow-up with PCP in 1 week and probably he will need referral to neurosurgery as outpatient for further treatment. Also, recommended follow-up with Dr. Moran as outpatient. - Physical Exam Vitals/I&O's: Vital Signs Temp Pulse Resp BP Pulse Ox 98.8 F 86 18 153/86 H 94 07/17/19 11:55 07/17/19 11:55 07/17/19 11:55 07/17/19 11:55 07/17/19 11:55 Oxygen Delivery Method Room Air Weight: 345 lb 10.957 oz Body Mass Index (BMI) 45.6 Intake and Output for Last 24 Hours 07/15/19 07/16/19 07/17/19 23:59 23:59 23:59 Output Total 575 / 575 Balance -575 / -575 General: Alert, Oriented x3, Cooperative, No apparent distress HEENT: Atraumatic, PERRLA, EOMI, Normocephalic Oral: Moist Mucosa, No Gingival or Mucosal Lesions/ Ulcerations Neck: Supple, No JVD, Negative Carotid Bruits, Trachea Midline, Thyroid Normal Size and Texture Lungs: Clear to auscultation, Normal air movement, No rhonchi, No wheeze, No rales Cardiovascular: Regular rate, Regular Rhythm, Normal S1, Normal S2, PMI Normal Abdomen: Bowel Sounds Present, Soft, Non Tender, Non-Distended, No Hepato- splenomegaly, Obese Extremities: No clubbing, No cyanosis, No edema Skin: No rashes, No breakdown Lymphatic: No Cervical, Supraclavicular, or Inguinal Adenopathy Neurological: Cranial nerves II-XII grossly intact, Neuro grossly intact Psych/Mental Status: Normal Affect, Appropriate Laboratory Results 07/16/19 14:30: WBC 8.4, RBC 5.91, Hgb 18.1 H*, Hct 55.9 H, MCV 94.6 H, MCH 30.6, MCHC 32.4, RDW Std Deviation 50.1 H, RDW Coeff of [place] 14.3, Plt Count 164, MPV 9.6, Immature Gran % (Auto) 0.500, Neut % (Auto) 67.6, Lymph % (Auto) 19.7, [place] % (Auto) 8.4, Eos % (Auto) 3.1, Baso % (Auto) 0.7, Absolute Neuts (auto) 5.7, Absolute Lymphs (auto) 1.65, Nucleated RBC % 0, Diff Path Review October07/16/19 14:30: Sodium 139, Potassium 4.6, Chloride 105, Carbon Dioxide 32.0, Anion Gap 2 L, BUN 12, Creatinine 1.00, Estim Creat Clear Calc 89.89, Est GFR (MDRD) Af Amer 98, Est GFR (MDRD) Non-Af 81, BUN/Creatinine Ratio 12.0, Glucose 102, Calcium 9.1 07/17/19 05:14: WBC 8.4, RBC 5.17, Hgb 15.3, Hct 49.1, MCV 95.0 H, MCH 29.6, MCHC 31.2 L, RDW Std Deviation 50.3 H, RDW Coeff of [place] 14.4, Plt Count 147 L, MPV 9.4, Immature Gran % (Auto) 0.400, Neut % (Auto) 69.6, Lymph % (Auto) 18.1 L , [place] % (Auto) 8.3, Eos % (Auto) 2.9, Baso % (Auto) 0.7, Absolute Neuts (auto) 5.8, Absolute Lymphs (auto) 1.51, Nucleated RBC % 0 07/17/19 05:14: Sodium 138, Potassium 4.3, Chloride 106, Carbon Dioxide 29.0, Anion Gap 3 L, BUN 19 H, Creatinine 1.27, Estim Creat Clear Calc 70.78, Est GFR (MDRD) Af Amer 75, Est GFR (MDRD) Non-Af 62, BUN/Creatinine Ratio 15.0, Glucose 139 H, Calcium 8.3 L 07/17/19 05:14: PT 12.9, INR 1.0 Discharge Activity: Return to Normal Activity Weight Bearing Status: Weight bearing as tolerated Call your doctor if you observe: Fever of 101 or Higher, Shortness of breath, Dizziness, Fainting spells, Chest pain, Increased palpitations (irregular heartbeat), Uncontrolled pain Home Medications: Medications to take at Discharge Gabapentin [Neurontin] 200 mg PO TIDCM #90 cap 07/17/19 Oxycodone [Oxyir] 5 mg PO Q8H PRN PRN 5 Days #14 tab 07/17/19 Prednisone 40 mg PO DAILY #10 tab 07/17/19 Senna/Docusate Sodium [Senokot-S, Katerine-Colace] 2 tab PO BID #30 tab 07/17/19 cycloBENZAPRine HCl [Flexeril] 10 mg PO TID PRN PRN #20 tab 07/17/19 Following Prescrptions Were Given to Patient: cycloBENZAPRine HCl [Flexeril] 10 mg PO TID PRN PRN #20 tab PRN Reason: Muscle Spasm Transmission Status: Received by [id number] Gabapentin [Neurontin] 200 mg PO TIDCM #90 cap Transmission Status: Received by [id number] Oxycodone [Oxyir] 5 mg PO Q8H PRN PRN 5 Days #14 tab PRN Reason: Pain Score 6-10/10 Transmission Status: Received by [id number] Prednisone 40 mg PO DAILY #10 tab Transmission Status: Received by [id number] Senna/Docusate Sodium [Senokot-S, Katerine-Colace] 2 tab PO BID #30 tab Transmission Status: Received by [id number] Primary Care Physician: Care Physician,No Primary [Primary Care Provider] - Please follow up with your Primary Care Physician in: 1 week. Please Follow Up With: Oneida Moran MD When: 1-2 weeks. Disposition: Home Minutes spent on discharge:: 26 Patient Condition:: Stable Medical Necessity - Tobacco Use Smoking Status: Current every day smoker Tobacco Use: Cigars, Vapor Meaningful Use Info Meaningful Use Diagnoses (Choose all that apply): None applicable Code Visit OBSV E&M: 39673 Observation care discharge
[2019-07-18 12:13] LABS: Pathologist Review Reviewed
== END 2019-07-17 12:12 | disposition home or self-care (01) ==
LOC: ED 14:36 → MS3 16:32
PROVIDERS: Admitting Provider Student in an Organized Health Care Education/Training Program; Emergency Provider Emergency Medicine; Visit Provider Hospitalist
DX: M48.061 Spinal stenosis, lumbar region without neurogenic claudication (principal); G89.29 Other chronic pain; G47.33 Obstructive sleep apnea (adult) (pediatric); J44.9 Chronic obstructive pulmonary disease, unspecified; F17.290 Nicotine dependence, other tobacco product, uncomplicated; D75.1 Secondary polycythemia; R26.2 Difficulty in walking, not elsewhere classified
CPT/HCPCS: 36415; 72100; 80048; 85025; 85610; 94660; 96374; 96375; 96376; 97161; 99218; 99284; A4216; G0378; J2405

== ENCOUNTER 2019-08-16 14:43 | Observation (INO) | payer BC, SELFPAY ==
[2019-08-16] VITALS (15 sets, daily range): BP systolic 123–172; BP diastolic 87–106; PULSE 101–117; RESP 16–20; TEMP 36.7–36.8; O2SAT 90–96; BMI 45.7; BMI 45.8; BMI 45.1
--- NOTE | 2019-08-16 14:58 | EKG12_ITS ---
Test Reason : CP Blood Pressure : / mmHG Vent. Rate : 121 BPM Atrial Rate : 121 BPM P-R Int : 150 ms QRS Dur : 126 ms QT Int : 324 ms P-R-T Axes : 061 -17 017 degrees QTc Int : 460 ms Sinus tachycardia Right bundle branch block Inferior infarct , age undetermined Abnormal ECG Confirmed by JAYE MAGANA, PEGGY ([id number]), loan expeditor SONA KNIGHT ([id number]) on 08/21/2019 2:31:48 PM Referred By: KAIN Confirmed By:PAL CEE MD
--- NOTE | 2019-08-16 15:14 | ED.VISSUMM ---
- ER Visit Summary Date of Service: 08/16/19 Chief Complaint: Midsternal chest pain and acute on chronic low back pain History of Present Illness: The patient is a 58 M history of COPD, lumbar stenosis and anxiety. No history of prior PE or DVTs. No prior history of cardiac disease but a substantial family history of cardiac disease and he smokes 1 pack of cigarettes and/or cigars daily. Patient states that he has had chest pain since around 5 AM this morning. He was already awake. He describes it as midsternal pressure. No radiation. Nothing specifically makes it better or worse. Is not pleuritic. No recent travel or surgery. States he has been hospitalized within the last 1 to 2 months due to back pain. Also states that he has had some recent bowel and bladder mild incontinence but states has had recent MRIs showing spinal stenosis and compression fractures. He has not had back surgery. He denies any hemoptysis. No leg pain or swelling. Physical Examination: Middle-aged male vital signs stable heart rate 117. Pulse ox 94% on room air no signs of hypoxia. H EENT exam poor dentition. Multiple missing teeth. Strong smell of tobacco. Neck nontender no lymphadenopathy. No JVD. Lungs coarse breath sounds but no rales or rhonchi. Heart tachycardic rate about 120 no murmur. Chest wall nontender. No reproducible pain. Abdomen soft nontender normal bowel sounds no peritoneal signs. Moving all 4 extremities. Neurovascularly intact. 5 out of 5 clinical support nurse strength bilaterally. Dorsi plantarflexion intact. Negative cauda equina. Negative saddle esthesia. Calves are nontender without edema or cords. Negative straight leg raise bilaterally. Normal medial thigh sensation. Normal rectal tone and sensation. Logically is awake and alert with no focal motor or sensory deficits. Back he has lumbar back pain worse with sitting up but not specifically reproducible. No signs of trauma. Test Results: Portable 1 view shows no acute abnormality. Normal cardiac silhouette mediastinum read both by myself and the radiologist. EKG sinus tachycardia rate of 121 with no acute signs of DE or ischemia. CBC unremarkable except hemoglobin 18 which may be secondary to her smoking versus other etiologies. Hospitalist and I discussed this. Chemistries unremarkable normal creatinine and gap. Troponin normal. D-dimer normal. Emergency Department Course and Treatment: Patient undergo cardiac work-up received p.o. aspirin. Also a d-dimer due to his recent lack of mobility due to his back pain. Treatment Plan: Repeat exam patient is doing well at 18 10 PM. He is pain-free after sublingual nitro x3. He was also given IV morphine for his chronic back pain. Discussed with patient all test results he will be admitted. I spoke to the hospitalist. Disposition: Admission Impression: Acute chest pain uncertain etiology Acute on chronic low back pain with history lumbar stenosis This note was generated with Flickme dictation software. It may contain incorrect words, spelling, and punctuation that were not noted in review of the chart prior to signing ED Disposition - Plan for ED Patient: Referrals: Care Physician,No Primary [Primary Care Provider] -
--- NOTE | 2019-08-16 15:15 | RAD_ITS ---
STUDY: X-RAY CHEST REASON FOR EXAM: Male, 58 years old. Chest pain TECHNIQUE: Single AP portable view of the chest. COMPARISON: Comparison is made with prior examination of March 07, 2019. FINDINGS: EKG electrodes are seen. Stable mild increased interstitial markings at the lung bases. There is no demonstrated pleural abnormality. Normal size heart. Normal mediastinum and randy. Normal visualized pulmonary arteries. Normal visualized aortic arch and descending thoracic aorta. Normal visualized thoracic spine. Normal visualized ribs, clavicles, and shoulders. There is no demonstrated abnormality of the visualized soft tissue structures of the upper abdomen. RAD/Chest 1 View (Portable) IMPRESSION: Stable examination with increased linear markings at the lung bases slightly more prominent on the right side. Electronically Signed: Emory Tejada, at 15:28 EST , Service support ,
[2019-08-16] MEDS: Aspirin 81 MG TAB.CHEW 324 MG PO (15:27)
[2019-08-16] MEDS: Nitroglycerin SL (ED/IMG/CATH) 0.4 MG TABLET SUBLINGUAL (15:45)
[2019-08-16 16:02] LABS: Basophil# 0.07 X10^3/uL; Basophil% 0.9 % (0-1); Eosinophil# 0.22 X10^3/uL; Eosinophils% 2.7 % (0-5); Lymphocyte % 13.5 % (19-41); Mean Corp Hgb Conc 32.4 g/dL (32-36); Mean Corpuscular Volume 92.7 fL (80-94); Mean Platelet Vol. 8.7 fl (6.2-12.0); Monocyte# 0.71 X10^3/uL; Monocyte% 8.7 % (0-10); NRBC Flagged by Analyzer 0 % (0-5); Neutrophil # 5.99 X10^3/uL (2.7-7.7); Neutrophil % 73.7 % (47-70); Platelet Count 182 K/mm3 (150-450); RBC Distribution Width CV 14.3 % (11.6-14.6); RBC Distribution Width SD 48.3 fl (35.1-43.9); Red Blood Count 6.26 M/mm3 (4.6-6.2); White Blood Count 8.1 K/mm3 (4.4-11.0)
[2019-08-16 16:07] LABS: Anion Gap 4 (5-15); BUN 15 mg/dL (7-18); BUN/Creat Ratio 12.1 RATIO (10-20); Calcium,Total 9.8 mg/dL (8.5-10.1); Chloride 105 mmol/L (98-107); Creatinine, Serum 1.24 mg/dL (0.70-1.30); EST Glomerular Filtration Rate 63 mL/min (>60); Est Glom Filt Rate - Afr Amer 77 mL/min (>60); Estimated Creatinine Clearance 72.49 ml/min; Glucose 125 mg/dL (74-106); Potassium 4.1 mmol/L (3.5-5.1); Sodium Level 139 mmol/L (136-145)
[2019-08-16 16:10] LABS: Hemoglobin 18.8 g/dL (13.0-16.5)
[2019-08-16] MEDS: Ondansetron 4 MG/2 ML Vial IV (16:12)
[2019-08-16] MEDS: morphine 8 MG/ML Syringe IV (16:17)
[2019-08-16 17:52] LABS: D-Dimer Quantitative (DVT/PE) 0.41 FEU/ug/m (0.27-0.49)
--- NOTE | 2019-08-16 19:48 | EKG12_ITS ---
Test Reason : AM EKG Blood Pressure : / mmHG Vent. Rate : 086 BPM Atrial Rate : 086 BPM P-R Int : 164 ms QRS Dur : 126 ms QT Int : 390 ms P-R-T Axes : 047 -22 028 degrees QTc Int : 466 ms Normal sinus rhythm Right bundle branch block Abnormal ECG When compared with ECG of 16-AUG-2019 20:41, MANUAL COMPARISON REQUIRED, DATA IS UNCONFIRMED Confirmed by JAYE MAGANA, PEGGY ([id number]), editor city SONA KNIGHT ([id number]) on 08/21/2019 2:50:27 PM Referred By: WILL Confirmed By:PAL CEE MD
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
[2019-08-16] MEDS: Ipratropium/Albuterol Sulfate 3 ML AMPUL.NEB INHALATION (20:34)
[2019-08-16] MEDS: predniSONE 20 MG Tablet 40 MG PO (20:44)
[2019-08-16] MEDS: 0.9% Normal Saline 1,000 ML 100 ML IV (20:45)
[2019-08-16] MEDS: Naproxen 250 MG Tablet PO (23:17)
[2019-08-16] MEDS: Metoprolol Tartrate 5 MG/5 ML Vial IV (23:17)
[2019-08-16 23:24] LABS: Magnesium 2.1 mg/dL (1.6-2.6)
[2019-08-17] VITALS (16 sets, daily range): BP systolic 98–126; BP diastolic 67–86; PULSE 80–101; RESP 18–20; TEMP 36.6–36.8; O2SAT 93–98
[2019-08-17] MEDS: MELATONIN 3 MG TABLET PO (01:29)
[2019-08-17] MEDS: Ipratropium/Albuterol Sulfate 3 ML AMPUL.NEB INHALATION ×3 (01:55→19:09)
[2019-08-17 05:30] LABS: Absolute Lymphocyte Count 0.58 X10^3/uL (0.83-4.51); Absolute Neutrophil Count 7.8 X10^3/uL (2.0-7.7); Basophil# 0.03 X10^3/uL; Basophil% 0.3 % (0-1); Eosinophil# 0.01 X10^3/uL; Eosinophils% 0.1 % (0-5); Hemoglobin 17.2 g/dL (13.0-16.5); Lymphocyte # 0.58 X10^3/ul (4.0); Lymphocyte % 6.6 % (19-41); Mean Corp Hgb Conc 32.5 g/dL (32-36); Mean Corpuscular Hgb 30.1 pg (27.0-32.0); Mean Corpuscular Volume 92.8 fL (80-94); Mean Platelet Vol. 8.8 fl (6.2-12.0); Monocyte# 0.34 X10^3/uL; Monocyte% 3.9 % (0-10); NRBC Flagged by Analyzer 0 % (0-5); Neutrophil # 7.82 X10^3/uL (2.7-7.7); Neutrophil % 88.8 % (47-70); POSITIVE DIFFERENTIAL YES; Platelet Count 179 K/mm3 (150-450); RBC Distribution Width CV 14.2 % (11.6-14.6); RBC Distribution Width SD 48.6 fl (35.1-43.9); Red Blood Count 5.71 M/mm3 (4.6-6.2); White Blood Count 8.8 K/mm3 (4.4-11.0)
[2019-08-17 05:45] LABS: Anion Gap 1 (5-15); BUN 24 mg/dL (7-18); BUN/Creat Ratio 18.2 RATIO (10-20); Calcium,Total 9.1 mg/dL (8.5-10.1); Chloride 105 mmol/L (98-107); Cholesterol 184 mg/dL (200); Creatinine, Serum 1.32 mg/dL (0.70-1.30); EST Glomerular Filtration Rate 59 mL/min (>60); Est Glom Filt Rate - Afr Amer 71 mL/min (>60); Glucose 154 mg/dL (74-106); High Density Lipoprotein 57 mg/dL; Sodium Level 138 mmol/L (136-145); Triglycerides 88 mg/dL; Very Low Density Lipoprotein 18 mg/dL (5-40)
[2019-08-17 05:48] LABS: Differential Indicated SCAN CRITERIA MET
--- NOTE | 2019-08-17 05:55 | EKG12_ITS ---
Test Reason : CP ADMISSION Blood Pressure : / mmHG Vent. Rate : 107 BPM Atrial Rate : 107 BPM P-R Int : 148 ms QRS Dur : 122 ms QT Int : 342 ms P-R-T Axes : 061 000 023 degrees QTc Int : 456 ms Sinus tachycardia Right bundle branch block Inferior infarct , age undetermined Abnormal ECG When compared with ECG of 16-AUG-2019 14:45, MANUAL COMPARISON REQUIRED, DATA IS UNCONFIRMED Confirmed by JAYE MAGANA, PEGGY ([id number]), desk editor SONA KNIGHT ([id number]) on 08/21/2019 2:51:08 PM Referred By: WILL Confirmed By:PAL CEE MD
[2019-08-17 06:36] LABS: Differential Comment SCANNED
[2019-08-17] MEDS: 0.9% Normal Saline 1,000 ML 100 ML IV (06:46)
[2019-08-17] MEDS: Naproxen 250 MG Tablet PO (06:53)
[2019-08-17] MEDS: predniSONE 20 MG Tablet 40 MG PO (10:27)
[2019-08-17] MEDS: 0.9% Saline Lock 10 ML Syringe IV (10:29)
--- NOTE | 2019-08-17 11:02 | STRESSREP ---
Stress Test Report Date: 08/17/2019 Procedure: Pharmacologic stress nuclear imaging study Indications: Chest pain Consent: Per the patient Procedure: The patient underwent pharmacologic (Regadenoson) evaluation with a peak heart rate of 100 beats per minute (62 %predicted maximal heart rate) and a peak blood pressure of 142/86 mmHg. The baseline ECG demonstrated normal sinus rhythm, right bundle branch block. EKG during lexiscan infusion revealed no significant ischemic changes. EKG post infusion revealed no significant ischemic changes [There were no cardiac dysrhythmias pretest, during pharmacologic infusion, or recovery]. Patient had 3/10 dull chest discomfort in the midsternal area prior to the test. The chest pain resolved in the post infusion. There was no worsening with Lexiscan infusion. The examination was discontinued secondary to completion of protocol. Impression: 1. Lexiscan stress test test is negative for Lexiscan infusion induced EKG changes of ischemia. 2. Lexiscan stress test test is negative for Lexiscan infusion induced chest pain. 3. Results of the nuclear portion of the test is as below Myocardial perfusion imaging study: Technique: The patient was injected with 14.8 millicuries of technetium 99m Cardiolite and subsequently rest SPECT Cardiolite nuclear imaging was obtained in the horizontal long, vertical long, and short axis views. The patient underwent pharmacologic (Regadenoson) evaluation. Please see above for details. The patient was injected with 44.6 millicuries of technetium 99m Cardiolite and subsequently stress SPECT Cardiolite nuclear imaging was obtained in the horizontal long, vertical long, and short axis views. A gated Cardiolite study at peak stress was obtained. Interpretation: Rest and stress SPECT Cardiolite nuclear imaging status post realignment, normalization, and attenuation correction demonstrate mildly decreased radioisotope uptake in the inferior wall on both the rest and stress images that resolves with attenuation correction suggestive of diaphragmatic attenuation artifact. There is also mildly decreased radioisotope uptake in the apex on the rest images with normal uptake in this region on the stress images. There is no evidence of significant ischemia or infarction. Gated images reveal no significant regional wall motion abnormalities. The reported LVEF is 62 %. Impression: 1. There is no evidence of significant ischemia or infarction. 2. Estimated ejection fraction is 62%. This note was generated with Alekto software. It may contain incorrect words, spelling, and punctuation that were not noted in checking the note before signing.
--- NOTE | 2019-08-17 11:43 | DCINST_ITS ---
You will use the following diet at home:: No restrictions Your food should be the consistency of: Regular Your liquids should be the consistency of: Regular/Thin Allergies/Adverse Reactions: Allergies codeine Allergy (Verified 08/16/19 14:50) Hives Iodinated Contrast Media [Iodinated Contrast Media - IV Dye] Allergy (Verified 08/16/19 14:50) Hives methylphenidate [From Ritalin] Adverse Reaction (Verified 08/16/19 14:50) Other hallucinations ANTIDEPRESSANTS Adverse Reaction (Uncoded 08/16/19 14:50) Other catatonic states Medications to take at Discharge Naproxen Sodium [Aleve] 220 mg PO DAILY 08/16/19 Prednisone 40 mg PO DAILY #6 tab 08/17/19 The following prescriptions were given: Prednisone 40 mg PO DAILY #6 tab Transmission Status: Pending to [facility]/pharmacy #[id number] Primary Care Physician: Care Physician,No Primary [Primary Care Provider] - Please follow up with your Primary Care Physician in: 1-2 weeks Test Results: Test results from this visit will be discussed in further detail at your follow- up appointment, if applicable. Please Follow Up With: [facility] When: 1 week Proposed Discharge Date: 08/17/19
--- NOTE | 2019-08-17 11:46 | PCA ---
List of area PCPs given to patient with discharge paperwork.
[2019-08-17 12:26] LABS: Pathologist Review Reviewed
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
--- NOTE | 2019-08-17 15:03 | CASEMGMT ---
Therapy indicated patient is in need of some rehab and they suggested [facility] [place] 4th floor inpatient rehab unit. DAGO spoke with patient and he is in agreement with [facility] [place] 4th floor rehab and his second choice would be [facility] [place] TCU. DAGO told him SW will work on this and let him know. DAGO told him this would not happen today as his insurance will have to authorize him first. DAGO called and spoke with Audrey in rehab with referral. She will start the pre-cert. DAGO also called Laure in TCU and put patient's name on the TCU list in the event insurance denies rehab unit. DAGO will notify patient. Plan: [facility] [place] 4th floor rehab unit pending insurance approval. If insurance denies rehab will try for SNF. Leesa REAGAN MSW
[2019-08-17] MEDS: Lidocaine 5% Patch 1 PATCH TOPICAL (16:09)
[2019-08-17] MEDS: Gabapentin 100 MG Capsule PO (16:13)
[2019-08-18 03:42] VITALS: BP 117/62; PULSE 90; RESP 20; TEMP 36.6; O2SAT 95
[2019-08-18 07:17] LABS: Anion Gap 3 (5-15); BUN 23 mg/dL (7-18); BUN/Creat Ratio 22.5 RATIO (10-20); Chloride 106 mmol/L (98-107); Creatinine, Serum 1.02 mg/dL (0.70-1.30); EST Glomerular Filtration Rate 79 mL/min (>60); Est Glom Filt Rate - Afr Amer 96 mL/min (>60); Estimated Creatinine Clearance 88.13 ml/min; Glucose 115 mg/dL (74-106); Sodium Level 143 mmol/L (136-145)
[2019-08-18 08:15] VITALS: O2SAT 91
[2019-08-18] MEDS: Naproxen 250 MG Tablet PO (09:28)
[2019-08-18] MEDS: predniSONE 20 MG Tablet 40 MG PO (09:28)
[2019-08-18] MEDS: Gabapentin 100 MG Capsule PO ×2 (09:29→13:33)
[2019-08-18] MEDS: cycloBENZAPRine HCl 5 MG TABLET PO (09:30)
[2019-08-18 09:35] VITALS: BP 154/88; PULSE 96; RESP 18; TEMP 36.7; O2SAT 95
[2019-08-18 10:00] VITALS: PULSE 88; RESP 18; O2SAT 94
[2019-08-18] MEDS: hydrOXYzine PAM 25 MG Capsule 50 MG PO (10:01)
--- NOTE | 2019-08-18 10:38 | CASEMGMT ---
SW met with patient and let him know that Inpatient Rehab will accept him, however his insurance needs to approve him. SW explained that if they deny rehab they may approve TCU, but there are no beds in TCU. He said if his insurance does not approve rehab and there are no beds in TCU he would prefer to go home with home health. SW explained to him what insurance pays for as far as home health. SW told him SW will let him know when SW hears something. MARGI CM updated. Leesa REAGAN MSW
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
--- NOTE | 2019-08-18 12:53 | CASEMGMT ---
Patient was denied to go to Inpatient Rehab Unit. DAGO explained this to patient and gave him a list of home health agencies that are in network with his insurance. He will look at the list and let DAGO know which agency he wants. DAGO notified MARGI. Leesa REAGAN MSW
--- NOTE | 2019-08-18 13:14 | DCINST_ITS ---
You will use the following diet at home:: Cardiac Your food should be the consistency of: Regular Your liquids should be the consistency of: Regular/Thin Discharge Activity: Return to Normal Activity Call your doctor if you observe: Numbness or Tingling, Uncontrolled pain Allergies/Adverse Reactions: Allergies codeine Allergy (Verified 08/16/19 14:50) Hives Iodinated Contrast Media [Iodinated Contrast Media - IV Dye] Allergy (Verified 08/16/19 14:50) Hives methylphenidate [From Ritalin] Adverse Reaction (Verified 08/16/19 14:50) Other hallucinations ANTIDEPRESSANTS Adverse Reaction (Uncoded 08/16/19 14:50) Other catatonic states Medications to take at Discharge Naproxen Sodium [Aleve] 220 mg PO DAILY 08/16/19 Prednisone 40 mg PO DAILY #6 tab 08/17/19 Gabapentin [Neurontin] 100 mg PO TIDCM #90 cap 08/18/19 Lidocaine 2% Jelly [Xylocaine 2% Jelly] 5 ml TOPICAL PRN PRN #1 tube 08/18/19 cycloBENZAPRine HCl [Cyclobenzaprine HCl] 5 mg PO TID PRN PRN #15 tab 08/18/19 The following prescriptions were given: cycloBENZAPRine HCl [Cyclobenzaprine HCl] 5 mg PO TID PRN PRN #15 tab PRN Reason: Muscle Spasm Transmission Status: Pending to [id number] Gabapentin [Neurontin] 100 mg PO TIDCM #90 cap Transmission Status: Pending to [id number] Prednisone 40 mg PO DAILY #6 tab Transmission Status: Received by [id number] Lidocaine 2% Jelly [Xylocaine 2% Jelly] 5 ml TOPICAL PRN PRN #1 tube PRN Reason: Pain Or Fever Transmission Status: Pending to [id number] Primary Care Physician: Care Physician,No Primary [Primary Care Provider] - Please follow up with your Primary Care Physician in: 1-2 weeks Test Results: Test results from this visit will be discussed in further detail at your follow- up appointment, if applicable. Please Follow Up With: [facility] spinal surgery When: 1 week Proposed Discharge Date: 08/17/19
--- NOTE | 2019-08-18 13:28 | DS.PCM_ITS ---
<Humphrey Clifford - Last Filed: 08/18/19 13:28> Discharge Date and Diagnosis Date of Admission: 08/16/19 Date of Discharge: 08/18/19 - Primary Discharge Diagnosis Chest pain - musculoskeletal Pain pain 2/2 lumbar spinal stenosis with radiculopathy COPD Polycythemia Morbid obesity PTSD Nicotine abuse Marijuana Use - Secondary Discharge Diagnosis Chronic Problems Lumbar canal stenosis (Chronic) Foraminal stenosis of lumbosacral region (Chronic) Left hand paresthesia (Chronic) Anxiety (Chronic) COPD (chronic obstructive pulmonary disease) (Chronic) Obstructive sleep apnea (Chronic) Hospital Course and Treatment Imaging Results: RAD/Chest 1 View (Portable) IMPRESSION: Stable examination with increased linear markings at the lung bases slightly more prominent on the right side. Stress test: Impression: 1. There is no evidence of significant ischemia or infarction. 2. Estimated ejection fraction is 62%. Operations: None Procedures: Stress test Summary of Care Provided: Hospital Course: The patient is a 58 year old M with pmhx as above who presented to the ER with c/o chest and back pain. He has chronic back pain from lumbar spinal stenosis and is planning to see Dr. Enrrique DAI spinal surgery for this. He also had midsternal chest pain. This was nonradiating with no aggravating or alleviating events. He had risk factors for heart disease including smoking, cardiac hx, and obesity. In the ER EKG showed RBBB, trop was negative, CXR was negative. He was admitted for chest pain work up. He underwent a stress test that was negative. Troponin was negative x 3 and he had no events on tele. His pain was felt to be musculoskeletal. His back pain worsened and he was concerned that he could not take care of himself at home as he could not get out of the house, could not walk far enough to the bathroom, and was having incontinence of stool and urine. He was treated with prednisone, gabapentin, flexeril, naproxyn, lidocaine, and kpad. PTOT was provided. PTOT recommended SNF or acute rehab. He was interested in acute rehab but not SNF. He was not accepted at acute rehab so he desired to go home with home health care. On the day of discharge his pain was much improved, his ability to ambulate was improved, and his incontinence was impro ving. He was advised to have close follow up, this week, with his neurosurgeon. He was advised to follow up with a PCP in 1-2 weeks. He was discharged home in stable condition with home health care. This patient was seen by Humphrey Clifford PA-C under the supervision of Dr. Majano [] - Physical Exam Vitals/I&O's: Vital Signs Temp Pulse Resp BP Pulse Ox 98.0 F 88 18 154/88 H 94 08/18/19 09:35 08/18/19 10:00 08/18/19 10:00 08/18/19 09:35 08/18/19 10:00 Oxygen Flow Rate (L/min) 2 Oxygen Delivery Method Room Air Weight: 341 lb 11.464 oz Body Mass Index (BMI) 45.1 Intake and Output for Last 24 Hours 08/16/19 08/17/19 08/18/19 23:59 23:59 23:59 Intake Total 240 / 240 2131.67 / 2131.67 300 / 300 Output Total 150 / 150 400 / 400 400 / 400 Balance 90 / 90 1731.67 / 1731.67 -100 / -100 Laboratory Results 08/18/19 06:30: Sodium 143, Potassium 4.0, Chloride 106, Carbon Dioxide 34.0 H, Anion Gap 3 L, BUN 23 H, Creatinine 1.02, Estim Creat Clear Calc 88.13, Est GFR (MDRD) Af Amer 96, Est GFR (MDRD) Non-Af 79, BUN/Creatinine Ratio 22.5 H, Glucose 115 H, Calcium 9.0 Current Medications Acetaminophen (Tylenol) 650 mg PO Q6H PRN PRN PRN Reason: Pain Score 1-10/Temp > 100.7 F Albuterol/Ipratropium (Duoneb) 3 ml INHALATION Q4HWA.RT TOREY Last Admin: 08/18/19 08:15 Dose: Not Given Documented by: Cyclobenzaprine HCl (Cyclobenzaprine Hcl) 5 mg PO TID PRN PRN PRN Reason: MUSCLE SPASM Last Admin: 08/18/19 09:30 Dose: 5 mg Documented by: Gabapentin (Neurontin) 100 mg PO TIDCM TOREY Last Admin: 08/18/19 09:29 Dose: 100 mg Documented by: Hydroxyzine Pamoate (Vistaril Pamoate Capsule) 50 mg PO TID PRN PRN PRN Reason: ANXIETY Last Admin: 08/18/19 10:01 Dose: 50 mg Documented by: Melatonin (Melatonin) 3 mg PO QHS PRN PRN PRN Reason: INSOMNIA Last Admin: 08/17/19 01:29 Dose: 3 mg Documented by: Naproxen (Naprosyn) 250 mg PO DAILYCM [facility] Last Admin: 08/18/19 09:28 Dose: 250 mg Documented by: Nitroglycerin (Nitrostat) 0.4 mg SUBLINGUAL Q5M PRN PRN Reason: CARDIAC/CHEST PAIN Nystatin (Mycostatin Powder) 1 applic TOPICAL BID [facility]; Protocol Ondansetron HCl (Zofran) 4 mg IV Q8H PRN PRN PRN Reason: NAUSEA/VOMITING Prednisone () 40 mg PO DAILY@0800 [facility] Last Admin: 08/18/19 09:28 Dose: 40 mg Documented by: Sodium Chloride () 10 - 40 ml IV UD PRN PRN Reason: SALINE FLUSH Last Admin: 08/17/19 10:29 Dose: 10 ml Documented by: Discharge Activity: Return to Normal Activity Call your doctor if you observe: Numbness or Tingling, Uncontrolled pain Home Medications: Medications to take at Discharge Naproxen Sodium [Aleve] 220 mg PO DAILY 08/16/19 Prednisone 40 mg PO DAILY #6 tab 08/17/19 Gabapentin [Neurontin] 100 mg PO TIDCM #90 cap 08/18/19 Lidocaine 2% Jelly [Xylocaine 2% Jelly] 5 ml TOPICAL PRN PRN #1 tube 08/18/19 cycloBENZAPRine HCl [Cyclobenzaprine HCl] 5 mg PO TID PRN PRN #15 tab 08/18/19 Following Prescrptions Were Given to Patient: cycloBENZAPRine HCl [Cyclobenzaprine HCl] 5 mg PO TID PRN PRN #15 tab PRN Reason: Muscle Spasm Transmission Status: Received by [id number] Gabapentin [Neurontin] 100 mg PO TIDCM #90 cap Transmission Status: Received by [id number] Prednisone 40 mg PO DAILY #6 tab Transmission Status: Received by [id number] Lidocaine 2% Jelly [Xylocaine 2% Jelly] 5 ml TOPICAL PRN PRN #1 tube PRN Reason: Pain Or Fever Transmission Status: Received by [id number] Primary Care Physician: Care Physician,No Primary [Primary Care Provider] - Please follow up with your Primary Care Physician in: 1-2 weeks Please Follow Up With: [facility] spinal surgery When: 1 week Medical Necessity - Tobacco Use Smoking Status: Current every day smoker Tobacco Use: Cigars Meaningful Use Info Meaningful Use Diagnoses (Choose all that apply): None applicable <Jose David Majano - Last Filed: 08/18/19 15:13> Discharge Date and Diagnosis - Secondary Discharge Diagnosis Chronic Problems Lumbar canal stenosis (Chronic) Foraminal stenosis of lumbosacral region (Chronic) Left hand paresthesia (Chronic) Anxiety (Chronic) COPD (chronic obstructive pulmonary disease) (Chronic) Obstructive sleep apnea (Chronic) Hospital Course and Treatment Operations: None Procedures: Stress test Summary of Care Provided: Patient seen and examined independently. Data reviewed. I agree with the above note by the physician city carrier assistant. The patient is a 58 year old M presents with chest pain. Patient underwent cardiac work-up including stress test that was unremarkable. Chest pain is felt to be more musculoskeletal as patient does have a chronic back pain. Patient was told that a stress test was negative and then became tearful stating he was unable to care for himself. Patient was evaluated by therapy who stated that he would be a good candidate for going to rehab. Patient was accepted by the rehab unit however was denied by his insurance. With that, the patient did not want to go to a intermediate facility prefer to go home with home health care. Patient was discharged home in stable condition. [] - Physical Exam Vitals/I&O's: Vital Signs Temp Pulse Resp BP Pulse Ox 36.7 C 88 18 154/88 H 94 08/18/19 09:35 08/18/19 10:00 08/18/19 10:00 08/18/19 09:35 08/18/19 10:00 Oxygen Flow Rate (L/min) 2 Oxygen Delivery Method Room Air Weight: 155 kg Body Mass Index (BMI) 45.1 Intake and Output for Last 24 Hours 08/16/19 08/17/19 08/18/19 23:59 23:59 23:59 Intake Total 240 / 240 2131.67 / 2131.67 300 / 300 Output Total 150 / 150 400 / 400 400 / 400 Balance 90 / 90 1731.67 / 1731.67 -100 / -100 Laboratory Results 08/18/19 06:30: Sodium 143, Potassium 4.0, Chloride 106, Carbon Dioxide 34.0 H, Anion Gap 3 L, BUN 23 H, Creatinine 1.02, Estim Creat Clear Calc 88.13, Est GFR (MDRD) Af Amer 96, Est GFR (MDRD) Non-Af 79, BUN/Creatinine Ratio 22.5 H, Glucose 115 H, Calcium 9.0 Current Medications Acetaminophen (Tylenol) 650 mg PO Q6H PRN PRN PRN Reason: Pain Score 1-10/Temp > 100.7 F Albuterol/Ipratropium (Duoneb) 3 ml INHALATION Q4HWA.RT [facility] Last Admin: 08/18/19 11:20 Dose: Not Given Documented by: Cyclobenzaprine HCl (Cyclobenzaprine Hcl) 5 mg PO TID PRN PRN PRN Reason: MUSCLE SPASM Last Admin: 08/18/19 09:30 Dose: 5 mg Documented by: Gabapentin (Neurontin) 100 mg PO TIDCM [facility] Last Admin: 08/18/19 13:33 Dose: 100 mg Documented by: Hydroxyzine Pamoate (Vistaril Pamoate Capsule) 50 mg PO TID PRN PRN PRN Reason: ANXIETY Last Admin: 08/18/19 10:01 Dose: 50 mg Documented by: Melatonin (Melatonin) 3 mg PO QHS PRN PRN PRN Reason: INSOMNIA Last Admin: 08/17/19 01:29 Dose: 3 mg Documented by: [facility]) [facility] Last Admin: 08/18/19 09:28 Dose: 250 mg Documented by: Nitroglycerin (Nitrostat) 0.4 mg SUBLINGUAL Q5M PRN PRN Reason: CARDIAC/CHEST PAIN Nystatin (Mycostatin Powder) 1 applic TOPICAL BID [facility]; Protocol Last Admin: 08/18/19 13:33 Dose: 1 applicatio Documented by: Ondansetron HCl (Zofran) 4 mg IV Q8H PRN PRN PRN Reason: NAUSEA/VOMITING Prednisone () 40 mg PO DAILY@0800 [facility] Last Admin: 08/18/19 09:28 Dose: 40 mg Documented by: Sodium Chloride () 10 - 40 ml IV UD PRN PRN Reason: SALINE FLUSH Last Admin: 08/17/19 10:29 Dose: 10 ml Documented by: Discharge Activity: Return to Normal Activity Call your doctor if you observe: Numbness or Tingling Meaningful Use Info Meaningful Use Diagnoses (Choose all that apply): None applicable Code Visit OBSV E&M: 25756 Observation care discharge
[2019-08-18] MEDS: Nystatin Powder 15gm Bottle 1 APPLIC TOPICAL (13:33)
--- NOTE | 2019-08-18 13:48 | CASEMGMT ---
Addendum entered by Amparo Mcgregor 08/18/19 15:37: This RN EDIN placed call to [facility] and they state they do not service his area at this time. Pt states he would like [facility] at this time and call to Randa at [facility] at this time with referral, voices understanding. Khushi KISER CM Original Note: Pt states that he would like [facility] at discharge. Call to [facility] to notify of referral and referral faxed to them at this time. [facility] is aware that pt to be discharged today. This MARGI JESUS awaiting acceptance from [facility] company. Khushi KISER CM
== END 2019-08-18 13:14 | disposition home health service (06) ==
LOC: ED 16:00 → PCU 08-17 07:08
PROVIDERS: Hospitalist; Physician Assistant; Admitting Provider Family Medicine; Emergency Provider Emergency Medicine; PCP Family Medicine
DX: R07.89 Other chest pain (principal); M54.5 Low back pain; G89.29 Other chronic pain; J44.9 Chronic obstructive pulmonary disease, unspecified; M48.061 Spinal stenosis, lumbar region without neurogenic claudication; F43.10 Post-traumatic stress disorder, unspecified; F17.290 Nicotine dependence, other tobacco product, uncomplicated; G47.33 Obstructive sleep apnea (adult) (pediatric); M48.07 Spinal stenosis, lumbosacral region; R32 Unspecified urinary incontinence; R15.9 Full incontinence of feces; D75.1 Secondary polycythemia; E66.01 Morbid (severe) obesity due to excess calories; Z68.42 Body mass index [BMI] 45.0-49.9, adult; Z71.3 Dietary counseling and surveillance; F41.9 Anxiety disorder, unspecified
CPT/HCPCS: 36415; 71045; 78452; 80048; 80061; 83735; 84484; 85025; 85379; 93005; 93017; 94640; 96361; 96374; 96375; 97116; 97162; 97166; 97530; 97535; 99218; 99251; 99285; 99406; A9500; J7030; A4216; G0378; G0463; J2405; J2785

== ENCOUNTER 2019-08-28 15:35 | Emergency (ER) | payer BC, SELFPAY ==
[2019-08-16 19:43] VITALS: BMI 45.1
[2019-08-28 15:36] VITALS: BP 140/104; PULSE 115; RESP 16; TEMP 37; O2SAT 96; BMI 44.9
--- NOTE | 2019-08-28 16:14 | MRI_ITS ---
STUDY: MRI LUMBAR SPINE WITHOUT CONTRAST REASON FOR EXAM: Male, 58 years old. back and rt leg pain, incontinence since 02/2019 TECHNIQUE: Standardized fat and water weighted pulse sequences were obtained in the sagittal and axial planes. COMPARISON: March 07, 2019 FINDINGS: No evidence for acute fracture or other significant bony pathology. Large interosseous hemangioma within the L2 vertebral body T12-L1: Normal endplates. Normal disc height, hydration and morphology. Normal bilateral facet joints. Normal central canal and bilateral lateral recesses. Normal bilateral intervertebral neural foramina. Normal lumbar lordosis. There is mild dextro scoliosis. Normal conus medullaris that terminates at L1 L1-2: Mild endplate spurring.. Normal disc height, desiccation and minimal annular bulge.. Normal bilateral facet joints. Normal central canal and bilateral lateral recesses. Normal bilateral intervertebral neural foramina. L2-3: Mild endplate spurring.. Normal disc height, hydration and minimal annular bulge with moderate size right foraminal disc protrusion. Normal bilateral facet joints. Normal central canal and bilateral lateral recesses. Moderate to severe right neuroforaminal stenosis L3-4: Normal endplates. Normal disc height, hydration and minimal annular bulge with moderate size left foraminal disc protrusion.. Bilateral facet arthropathy.. Normal central canal and bilateral lateral recesses. Mild right neuroforaminal stenosis and moderate narrowing on the left L4-5: Normal endplates. Normal disc height, hydration and minimal annular bulge. Facet arthropathy. Normal central canal and bilateral lateral recesses. Moderate bilateral neuroforaminal stenosis. L5-S1: Normal endplates. Normal disc height, desiccation and small broad-based central disc protrusion and minimal annular bulge.. Bilateral facet arthropathy.. Normal central canal and bilateral lateral recesses. Mild bilateral neural foraminal encroachment. Normal visualized sacral ala. Normal visualized paraspinous soft tissue structures. Findings are similar to that seen on prior study. MRI/Spine Lumbar (Routine) IMPRESSION: No evidence for acute fracture or subluxation. Multilevel spinal stenosis secondary to disc disease and bony hypertrophy most severe on the right at L2-3 and on the left at L3-4. Findings as above Electronically Signed: Tl Escobedo MD at 19:44 EST , Service support ,
--- NOTE | 2019-08-28 16:15 | ED.VIS.GEN ---
History of Present Illness Chief Complaint: Back Informant: Patient Onset: - - Acute on chronic Current Severity: Moderate Maximum Severity: Severe Narrative: Patient has a history of chronic back pain with spinal stenosis. He is scheduled to see Dr. Lucero in September. Patient has noted increased back pain and incontinence over the past [address] Lucero's office today and was advised to come back to the emergency room. Patient was admitted to the hospital in June for intractable back pain. At that time he was discharged with prednisone, gabapentin, OxyIR, and Flexeril. Patient states about a week after his medications ran out he started having increased symptoms again. Patient did reportedly answer yes to several of the screening questions for possible suicidal ideation. Patient is tearful and states he felt compelled to answer the questions truthfully, but would never act upon these thoughts. He did attempt suicide approximately 10 years ago and states he would never hurt his children that way again. - Past Medical History (1) Back pain Status: Chronic (2) Radiculitis of leg Status: Chronic (3) S/P epidural steroid injection Status: Chronic (4) Anxiety Status: Chronic (5) COPD (chronic obstructive pulmonary disease) Status: Chronic (6) Lumbar canal stenosis Status: Chronic (7) Obstructive sleep apnea Status: Chronic Past Medical History - Allergies and Home Meds Allergies/Adverse Reactions: Allergies codeine Allergy (Verified 08/28/19 15:41) Hives Iodinated Contrast Media [Iodinated Contrast Media - IV Dye] Allergy (Verified 08/28/19 15:41) Hives methylphenidate [From Ritalin] Adverse Reaction (Verified 08/28/19 15:41) Other hallucinations ANTIDEPRESSANTS Adverse Reaction (Uncoded 08/28/19 15:41) Other catatonic states Primary Care Physician: Roman Trammell MD [Primary Care Provider] - Prior records reviewed: Yes Surgical History: appendectomy, - - Arthroscopic surgery Smoking Status: Current every day smoker - Family History Maternal Family History: Reports: Heart Disease, Hypertension Paternal Family History: Reports: Heart Disease, Hypertension Review of Systems General: Denies: Chills, Fever Eyes: Denies: Visual changes - bilaterally ENT: Denies: Bilateral ear pain Cardiovascular: Denies: Chest pain Respiratory: Denies: Dyspnea, Cough Gastrointestinal: Denies: Abdominal pain, Nausea, Vomiting, Diarrhea Genitourinary: Reports: - - Urinary incontinence Musculoskeletal: Reports: Back pain Neurological: Denies: Headache Allergy: Denies: Uticaria Physical Exam Vital Signs/Narrative: Vital Signs Temp Pulse Resp BP Pulse Ox 08/28/19 15:36 98.6 F 115 H 16 140/104 H 96 Inital Vital Signs reviewed: Yes General: Well nourished, Well developed Head: Normocephalic ENT: Moist mucous membranes Neck: Supple Cardiovascular: Regular rate, Regular rhythm Respiratory: - - Coarse breath sounds bilaterally. Abdomen: Soft, Nontender Back: - - Midline tenderness in the upper lumbar region as well as over the sacrum. No ecchymosis or abrasions to the area. Extremities: Nontender Skin: Normal color, No rash Neurological: Alert, Oriented x3, Normal Strength, Normal Sensation, - - Good strength and sensation on testing of the lower extremities. 2+ right patellar reflex, 1+ left patellar reflex. Psychological: Tearful Diagnostic/Tx/Re-eval Impressions Lumbar Spine MRI 08/28/19 16:14 IMPRESSION: No evidence for acute fracture or subluxation. Multilevel spinal stenosis secondary to disc disease and bony hypertrophy most severe on the right at L2-3 and on the left at L3-4. Findings as above Electronically Signed: Tl Escobedo MD at 19:44 EST , Service support , 08/28/19 16:14 MRI Lumbar [Spine Lumbar (Routine)] [MRI] Stat Laboratory Results 08/28/19 08/28/19 16:25 16:25 WBC 10.5 RBC 6.08 Hgb 17.7 H Hct 55.9 H MCV 91.9 MCH 29.1 MCHC 31.7 L RDW Std Deviation 48.4 H RDW Coeff of Penelope 14.4 Plt Count 177 MPV 8.7 Immature Gran % (Auto) 0.600 Neut % (Auto) 72.0 H Lymph % (Auto) 15.8 L Bowman % (Auto) 8.6 Eos % (Auto) 2.5 Baso % (Auto) 0.5 Absolute Neuts (auto) 7.6 Absolute Lymphs (auto) 1.66 Nucleated RBC % 0 Sodium 139 Potassium 4.1 Chloride 105 Carbon Dioxide 30.0 Anion Gap 4 L BUN 12 Creatinine 0.91 Estim Creat Clear Calc 98.78 Est GFR (MDRD) Af Amer 109 Est GFR (MDRD) Non-Af 90 BUN/Creatinine Ratio 13.2 Glucose 112 H Calcium 9.6 - Medical Decision Making Patient received analgesics in the emergency room. MRI was obtained secondary to increased back pain with incontinence. This reveals no evidence of cauda equina and overall is not significantly changed when compared to prior. On repeat evaluation patient is resting comfortably. He actually states that he does feel improved and would like to go home. When he was admitted last month he was discharged with prednisone, gabapentin, OxyIR, Flexeril. He will be given the same prescriptions for home. There was some question of whether the patient had suicidal ideation. Patient met with social work and they are in agreement that although he has sad thoughts, he would never follow through with this. He has been given resources in the community for follow-up as needed. ED Disposition - Plan for ED Patient: Disposition: Home or Assisted Living Diagnosis: Acute exacerbation of chronic low back pain Instructions: BACK AND NECK PAIN, General Prescriptions: Prednisone [Deltasone] 60 mg PO DAILY #15 tab Transmission Status: Pending to [id number] cycloBENZAPRine HCl [Flexeril] 10 mg PO TID PRN #20 tab PRN Reason: Muscle Spasm Transmission Status: [id number] Gabapentin [Neurontin] 100 mg PO TID #60 cap Transmission Status: [id number] Oxycodone [Oxyir] 5 mg PO Q6H PRN PRN 1 Days #20 tablet PRN Reason: Pain Score 4-10/10 Transmission Status: Received by [id number] Referrals: Roman Trammell MD [Primary Care Provider] - 5-7 Days Rosie Lucero MD [STAFF PHYSICIAN] - As soon as possible
[2019-08-28] MEDS: Ondansetron 4 MG/2 ML Vial IV (16:35)
[2019-08-28] MEDS: Morphine 4 MG/ML Syringe IV (16:35)
[2019-08-28] MEDS: 0.9% Normal Saline 1,000 ML 150 ML IV (16:35)
[2019-08-28 16:40] LABS: Absolute Lymphocyte Count 1.66 X10^3/uL (0.83-4.51); Absolute Neutrophil Count 7.6 X10^3/uL (2.0-7.7); Basophil# 0.05 X10^3/uL; Basophil% 0.5 % (0-1); Eosinophil# 0.26 X10^3/uL; Eosinophils% 2.5 % (0-5); Hemoglobin 17.7 g/dL (13.0-16.5); Lymphocyte # 1.66 X10^3/ul (4.0); Lymphocyte % 15.8 % (19-41); Mean Corp Hgb Conc 31.7 g/dL (32-36); Mean Corpuscular Hgb 29.1 pg (27.0-32.0); Mean Corpuscular Volume 91.9 fL (80-94); Mean Platelet Vol. 8.7 fl (6.2-12.0); Monocyte% 8.6 % (0-10); NRBC Flagged by Analyzer 0 % (0-5); Neutrophil # 7.55 X10^3/uL (2.7-7.7); Platelet Count 177 K/mm3 (150-450); RBC Distribution Width CV 14.4 % (11.6-14.6); RBC Distribution Width SD 48.4 fl (35.1-43.9); Red Blood Count 6.08 M/mm3 (4.6-6.2); White Blood Count 10.5 K/mm3 (4.4-11.0)
[2019-08-28 16:50] LABS: Hematocrit 55.9 % (40-54)
[2019-08-28 17:00] LABS: Anion Gap 4 (5-15); BUN 12 mg/dL (7-18); BUN/Creat Ratio 13.2 RATIO (10-20); Calcium,Total 9.6 mg/dL (8.5-10.1); Chloride 105 mmol/L (98-107); Creatinine, Serum 0.91 mg/dL (0.70-1.30); EST Glomerular Filtration Rate 90 mL/min (>60); Est Glom Filt Rate - Afr Amer 109 mL/min (>60); Estimated Creatinine Clearance 98.78 ml/min; Glucose 112 mg/dL (74-106); Potassium 4.1 mmol/L (3.5-5.1); Sodium Level 139 mmol/L (136-145)
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
[2019-08-28] MEDS: HYDROmorphone 0.5 MG/0.5 ML SYRINGE IV (17:48)
[2019-08-28 19:54] VITALS: BP 131/92; PULSE 116; RESP 20; O2SAT 91
[2019-08-28] MEDS: oxyCODONE 5 MG Tablet PO (20:38)
[2019-08-28] MEDS: predniSONE 20 MG Tablet 60 MG PO (20:38)
[2019-08-28 20:44] VITALS: PULSE 105
== END 2019-08-28 20:45 | disposition home or self-care (01) ==
PROVIDERS: Emergency Provider Emergency Medicine; PCP Family Medicine
DX: M51.36 Other intervertebral disc degeneration, lumbar region (principal); M48.061 Spinal stenosis, lumbar region without neurogenic claudication; M89.38 Hypertrophy of bone, other site; G89.29 Other chronic pain; J44.9 Chronic obstructive pulmonary disease, unspecified; F17.200 Nicotine dependence, unspecified, uncomplicated
CPT/HCPCS: 72148; 80048; 85025; 96361; 96374; 96375; 99285; J7030; A4216; J2405

== ENCOUNTER 2019-09-08 12:38 | Emergency (ER) | payer BC, SELFPAY ==
[2019-09-08 12:40] VITALS: BP 145/88; PULSE 113; RESP 22; TEMP 36.8; O2SAT 94; BMI 44.9
--- NOTE | 2019-09-08 13:21 | ED.DCSUM_ITS ---
- ER Visit Summary Date of Service: 09/08/19 Chief Complaint: Back pain History of Present Illness: The patient is a 58 M with chronic low back pain. Patient woke up around 2 AM this morning with his recurrent pain. Nothing seemed to bring it on. Worse with movement. No injuries. He was recently seen in the ED. He had an MRI. He was prescribed oxycodone, prednisone, Flexeril, gabapentin. He is out of his pain medication and medical marijuana, and his pain is out of control. He denies any new symptoms. Denies abdominal pain. Denies any bowel or bladder symptoms. Denies any new weakness or numbness. Denies fevers, infection, or systemic symptoms. Physical Examination: Afebrile and vital signs unremarkable. Heart regular. Lungs clear. Abdomen soft and nontender. Back is diffusely tender. Otherwise unremarkable. Straight leg raise negative. Good strength and sensation. Test Results: None indicated Emergency Department Course and Treatment: Patient's chronic pain was treated with morphine and Kenalog. He has plans to follow-up with Dr. Lucero. No indication for diagnostic testing, imaging. Will reassess. Patient required additional pain. He is unable to ambulate secondary to pain. He required a third dose of pain medicine. He is unable to ambulate and unsafe to go home. Will contact the hospitalist. The hospitalist knows the patient well. There is no additional care we can prov jose carlos in the hospital. Patient will need to follow-up with pain management. I spoke with the patient about this and he was agreeable to discharge. Treatment Plan: As above Disposition: Discharge Impression: Intractable low back pain This note was generated with [employer] dictation software. It may contain incorrect words, spelling, and punctuation that were not noted in review of the chart prior to signing ED Disposition - Plan for ED Patient: Instructions: BACK PAIN (Acute or Chronic) Prescriptions: Prednisone [Deltasone] 60 mg PO DAILY #15 tab Transmission Status: Received by [facility]/pharmacy #[id number] cycloBENZAPRine HCl [Flexeril] 10 mg PO TID PRN #20 tab PRN Reason: Muscle Spasm Transmission Status: Received by [facility] #[id number] Oxycodone HCl/Acetaminophen [Percocet 5/325] 1 tab PO Q6H PRN PRN 3 Days #12 tab PRN Reason: Pain Prescription Printed Referrals: Roman Trammell MD [Primary Care Provider] -
[2019-09-08] MEDS: Triamcinolone Acetonide 40 MG/ML Vial IM (13:46)
[2019-09-08] MEDS: morphine 8 MG/ML Syringe SC (13:46)
--- NOTE | 2019-09-08 14:18 | ED.DEP ---
ED Disposition - Plan for ED Patient: Instructions: BACK PAIN (Acute or Chronic) Prescriptions: Prednisone [Deltasone] 60 mg PO DAILY #15 tab Transmission Status: Pending to [facility] #[id number] cycloBENZAPRine HCl [Flexeril] 10 mg PO TID PRN #20 tab PRN Reason: Muscle Spasm Transmission Status: Pending to [facility][id number] Oxycodone HCl/Acetaminophen [Percocet 5/325] 1 tab PO Q6H PRN PRN 3 Days #12 tab PRN Reason: Pain Prescription Printed Referrals: Roman Trammell MD [Primary Care Provider] -
[2019-09-08 14:39] VITALS: BP 139/102; PULSE 102; RESP 18; O2SAT 93
[2019-09-08] MEDS: Morphine 4 MG/ML Syringe IM (14:48)
[2019-09-08] MEDS: Morphine 4 MG/ML Syringe SC (15:08)
[2019-09-08 15:53] VITALS: BP 153/83; PULSE 81; RESP 18; O2SAT 98
== END 2019-09-08 15:54 | disposition home or self-care (01) ==
LOC: ED 13:25
PROVIDERS: Emergency Provider Emergency Medicine; PCP Family Medicine
DX: M54.5 Low back pain (principal); G89.29 Other chronic pain; J44.9 Chronic obstructive pulmonary disease, unspecified; Z72.0 Tobacco use
CPT/HCPCS: 96372; 99283

== ENCOUNTER → 2020-01-09 09:13 | Outpatient (CLI) | payer BC, SELFPAY ==
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
== END ==
LOC: HPRAD 09:16
PROVIDERS: PCP Family Medicine; Referring Provider Orthopaedic Surgery; Visit Provider Orthopaedic Surgery
DX: M54.5 Low back pain (principal)
CPT/HCPCS: 72110

== ENCOUNTER 2020-02-09 14:30 | Outpatient (RCR) | payer BC, SELFPAY ==
[2020-01-09 11:11] VITALS: BMI 44.9
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
--- NOTE | 2020-06-26 13:15 | HP.PTDCSUM ---
It has been my pleasure to treat MARCEL TURCIOS referred by Dr. Rosie Lucero MD, with the diagnosis of LBP for a total of 7 visit(s). Discharge Date: Please see the following information for a summary of their discharge status. Subjective: Patient states pain being in deep end helpd. But doing ex's made symptoms worse. Patient states becoming emotional because of pain . Patient only able to walk short distances. Patient plans to return to DR Bilateral Back Pain Intensity (Out of 10): 7 Objective/Function: POSTURE:mild foward posture. GAIT: slow antalgic gait. NEURO: reflexes diminished. MMT: quads/hams 4-/5 ,hip flexion right 3/5,left 3+/5. LUMBAR ROM: flexion mod/severe loss pain,extension severe loss,side glides mod loss Goal 1:: Patient to be I with HEP Goal Progress: Goal Met Goal 2:: Patient to improve posture for ADLS' Goal Progress: Progressing Goal 3:: Patient decrease lumbar pain by 40% or >to improve function/gait. Goal Progress: Progressing Goal 4:: Patient to improve lumbar ROM for function of recovery Goal Progress: Progressing Goal 5:: Patient to improve lumbar owestry score by 5 points to improve function. Goal Progress: Progressing Plan: RTD If there are questions or concerns regarding this patient's physical therapy, please feel free to call me at [phone]. Thank you for the referral of this patient. Sincerely, Rishabh Sauceda, PT, Cert MDT, OCS
== END 2020-02-09 19:00 | disposition home or self-care (01) ==
LOC: PT 14:30
PROVIDERS: PCP Family Medicine; Referring Provider Orthopaedic Surgery; Visit Provider Orthopaedic Surgery
DX: M54.5 Low back pain (principal)
CPT/HCPCS: 97113; 97162; 97530

== ENCOUNTER 2020-05-20 14:58 | Emergency (ER) | payer BC, SELFPAY ==
[2020-05-20 14:58] VITALS: BP 131/83; PULSE 111; RESP 16; TEMP 36.2; O2SAT 97; BMI 43.5
--- NOTE | 2020-05-20 15:19 | ED.DCSUM_ITS ---
History of Present Illness Chief Complaint: Allergic Reaction Informant: Patient Onset: Weeks Current Severity: Mild Maximum Severity: Moderate Narrative: Patient presents secondary to allergic reaction. He was started on Skelaxin and diclofenac from pain management the first of the month. Patient states after a week or so he started to have some symptoms of throat tightness and felt his lips were swollen. Last week he felt his tongue was swollen. He stopped the medication approximately 6 days ago. Since that time symptoms seem to be improving. He spoke with pain management today who advised him he needed to come to the emergency room immediately. Patient states he has been able to drink okay but really has not been eating much for the last 3 days. - Past Medical History (1) Anxiety Status: Chronic (2) Back pain Status: Chronic (3) COPD (chronic obstructive pulmonary disease) Status: Chronic (4) Obstructive sleep apnea Status: Chronic Past Medical History - Allergies and Home Meds Allergies/Adverse Reactions: Allergies codeine Allergy (Verified 05/20/20 15:02) Hives Iodinated Contrast Media [Iodinated Contrast Media - IV Dye] Allergy (Verified 05/20/20 15:02) Hives diclofenac Adverse Reaction (Verified 05/20/20 15:40) Swelling metaxalone Adverse Reaction (Verified 05/20/20 15:40) Swelling methylphenidate [From Ritalin] Adverse Reaction (Verified 05/20/20 15:02) hallucinations hallucinations ANTIDEPRESSANTS Adverse Reaction (Uncoded 05/20/20 15:02) catatonic state catatonic state Primary Care Physician: Roman Trammell MD [STAFF PHYSICIAN] - Prior records reviewed: Yes Surgical History: appendectomy, - - Arthroscopic surgery Smoking Status: Current every day smoker - Family History Maternal Family History: Reports: Heart Disease, Hypertension Paternal Family History: Reports: Heart Disease, Hypertension Review of Systems General: Denies: Chills, Fever Eyes: Denies: Visual changes - bilaterally ENT: Reports: - - Tongue and lip swelling. Denies: Bilateral ear pain Cardiovascular: Denies: Chest pain Respiratory: Denies: Dyspnea, Cough Gastrointestinal: Denies: Abdominal pain, Vomiting, Diarrhea Musculoskeletal: Denies: Extremity Pain Skin: Denies: Rash Neurological: Denies: Headache, Weakness Hematologic: Denies: Easy bruising, Easy bleeding Allergy: Denies: Uticaria Physical Exam Vital Signs/Narrative: Vital Signs Temp Pulse Resp BP Pulse Ox 05/20/20 14:58 97.1 F L 111 H 16 131/83 H 97 Inital Vital Signs reviewed: Yes General: Well nourished, Well developed, - - Lying with head of bed elevated approximate 45 degrees. Tolerating secretions well and has a strong voice. Speaking in full sentences. Eyes: Perrl, EOMI ENT: Dry mucous membranes, - - No appreciable tongue or lip edema on exam. Posterior pharynx examination is normal. Neck: Supple Cardiovascular: Regular rate, Regular rhythm Respiratory: No distress, CTA bilaterally Abdomen: Soft, Nontender Skin: Normal color Neurological: Alert, Oriented x3 Psychological: Normal affect Diagnostic/Tx/Re-eval Laboratory Results 05/20/20 15:30 Sodium 140 Potassium 3.8 Chloride 105 Carbon Dioxide 32.0 Anion Gap 3 L BUN 13 Creatinine 1.05 Estim Creat Clear Calc 84.55 Est GFR (MDRD) Af Amer 93 Est GFR (MDRD) Non-Af 76 BUN/Creatinine Ratio 12.4 Glucose 122 H Calcium 9.4 - Medical Decision Making Because the patient had noted that he had not been eating much chemistry study was obtained. Electrolytes are unremarkable. Patient was given Solu-Medrol, Benadryl, and Pepcid here. On repeat evaluation he continues to feel only slight edema. Because he stopped the medication a week ago I do not feel he needs significant observation time or hospitalization. He will be given a prescription for 4 additional days of steroid at home. ED Disposition - Plan for ED Patient: Disposition: Home or Assisted Living Diagnosis: Allergic reaction Instructions: ED ADVERSE DRUG REACTION Allergic Prescriptions: Prednisone [Deltasone] 40 mg PO DAILY #8 tab Transmission Status: Pending to [facility]/pharmacy #[id number] Referrals: Roman Trammell MD [STAFF PHYSICIAN] - 1 Week if not improving
[2020-05-20] MEDS: DiphenhydrAMINE 50 MG/ML Syringe 25 MG IV (15:34)
[2020-05-20] MEDS: MethylPREDNISolone 125 MG/2 ML Vial IV (15:35)
[2020-05-20 16:01] LABS: Anion Gap 3 (5-15); BUN 13 mg/dL (7-18); BUN/Creat Ratio 12.4 RATIO (10-20); Calcium,Total 9.4 mg/dL (8.5-10.1); Chloride 105 mmol/L (98-107); Creatinine, Serum 1.05 mg/dL (0.70-1.30); EST Glomerular Filtration Rate 76 mL/min (>60); Est Glom Filt Rate - Afr Amer 93 mL/min (>60); Estimated Creatinine Clearance 84.55 ml/min; Glucose 122 mg/dL (74-106); Potassium 3.8 mmol/L (3.5-5.1); Sodium Level 140 mmol/L (136-145)
[2020-05-20] MEDS: Famotidine 200 MG/20 ML MDV 20 MG in 0.9% Normal Saline (Pres. free 8 ML 300 MG IV (16:02)
[2020-05-20 17:08] VITALS: RESP 18; O2SAT 100
== END 2020-05-20 17:09 | disposition home or self-care (01) ==
PROVIDERS: Emergency Provider Emergency Medicine; PCP Family Medicine
DX: R22.0 Localized swelling, mass and lump, head (principal); R09.89 Other specified symptoms and signs involving the circulatory and respiratory systems; T42.8X5A Adverse effect of antiparkinsonism drugs and other central muscle-tone depressants, initial encounter; T39.395A Adverse effect of other nonsteroidal anti-inflammatory drugs [NSAID], initial encounter; Y92.9 Unspecified place or not applicable; J44.9 Chronic obstructive pulmonary disease, unspecified
CPT/HCPCS: 80048; 96374; 96375; 99283; A4216; J3490

== ENCOUNTER 2023-09-15 11:18 | Inpatient (IN) | payer SELFPAY ==
[2023-09-15] VITALS (20 sets, daily range): BP systolic 105–149; BP diastolic 67–107; PULSE 86–173; RESP 15–28; TEMP 35.8–36.9; O2SAT 93–98; BMI 41.9; BMI 47.8
--- NOTE | 2023-09-15 12:00 | EKG12_ITS ---
Test Reason : CP/TACHYCARDIA Blood Pressure : / mmHG Vent. Rate : 170 BPM Atrial Rate : 000 BPM P-R Int : 000 ms QRS Dur : 124 ms QT Int : 268 ms P-R-T Axes : 000 -44 -32 degrees QTc Int : 450 ms Critical Test Result: High HR Atrial flutter with 2:1 conduction Left axis deviation Right bundle branch block Inferior infarct , age undetermined Abnormal ECG Confirmed by Asael Marino ([id number]), index editor SONA KNIGHT ([id number]) on 09/16/2023 10:46:01 AM Referred By: Confirmed By:Asael Marino
[2023-09-15 12:15] LABS: Absolute Lymphocyte Count 2.01 X10^3/uL (0.83-4.51); Absolute Neutrophil Count 6.3 X10^3/uL (2.0-7.7); Basophil# 0.09 X10^3/uL; Basophil% 0.9 % (0-1); Eosinophil# 0.21 X10^3/uL; Eosinophils% 2.1 % (0-5); Hematocrit 54.6 % (40-54); Lymphocyte # 2.01 X10^3/ul (0.83-4.51); Lymphocyte % 20.5 % (19-41); Mean Corp Hgb Conc 33.5 g/dL (32-36); Mean Corpuscular Hgb 29.8 pg (27.0-32.0); Mean Corpuscular Volume 88.9 fL (80-94); Mean Platelet Vol. 9.4 fl (6.2-12.0); Monocyte# 1.17 X10^3/uL; Monocyte% 11.9 % (0-10); NRBC Flagged by Analyzer 0 % (0-5); Neutrophil # 6.26 X10^3/uL (2.7-7.7); Neutrophil % 63.9 % (47-70); Platelet Count 177 K/mm3 (150-450); RBC Distribution Width CV 15.1 % (11.6-14.6); RBC Distribution Width SD 48.6 fl (35.1-43.9); Red Blood Count 6.14 M/mm3 (4.6-6.2); White Blood Count 9.8 K/mm3 (4.4-11.0)
[2023-09-15] MEDS: Adenosine 6 MG/2 ML Syringe IV (12:17)
[2023-09-15 12:19] LABS: Hemoglobin 18.3 g/dL (13.0-16.5)
[2023-09-15] MEDS: Adenosine 6 MG/2 ML Syringe 12 MG IV (12:22)
[2023-09-15 12:33] LABS: Prothrombin Time (Protime)PT. 13.6 SECONDS (11.7-14.9)
[2023-09-15 12:34] LABS: Partial Thromboplast Time 26.4 Seconds (24.1-36.2)
--- NOTE | 2023-09-15 12:34 | RAD_ITS ---
STUDY: X-RAY CHEST REASON FOR EXAM: Male, 62 years old. Cough TECHNIQUE: Single AP portable view of the chest. COMPARISON: Comparison is made with prior study dated August 16, 2019. FINDINGS: EKG electrodes are seen. The lungs are clear and expanded. There is no demonstrated pleural abnormality. There is mild cardiac enlargement. Normal mediastinum and randy. Normal visualized pulmonary arteries. Normal visualized aortic arch and descending thoracic aorta. Normal visualized thoracic spine. Normal visualized ribs, clavicles, and shoulders. There is no demonstrated abnormality of the visualized soft tissue structures of the upper abdomen. RAD/Chest 1 View (Portable) IMPRESSION: Mild cardiomegaly. Electronically Signed: Emory Tejada MD at 12:50 EDT ,
[2023-09-15 12:41] LABS: AST(SGOT) 32 U/L (15-37); Alanine Aminotransfer ALT/SGPT 48 U/L (16-61); Albumin, Serum 3.4 g/dL (3.2-5.0); Alkaline Phosphatase 70 U/L (45-117); Anion Gap 11 (5-15); BUN 20 mg/dL (7-18); BUN/Creat Ratio 14.1 RATIO (10-20); Bilirubin, Direct 0.22 mg/dL (0.00-0.30); Calcium,Total 9.2 mg/dL (8.5-10.1); Chloride 105 mmol/L (98-107); Creatinine, Serum 1.42 mg/dL (0.70-1.30); EST Glomerular Filtration Rate 53 mL/min (>60); Est Glom Filt Rate - Afr Amer 65 mL/min (>60); Estimated Creatinine Clearance 79.58 ml/min; Globulin 4.3 g/dL (2.2-4.2); Glucose 145 mg/dL (74-106); Lipase 38 U/L (13-75); Magnesium 2.3 mg/dL (1.6-2.6); Potassium 4.1 mmol/L (3.5-5.1); Protein, Total 7.7 g/dL (6.4-8.2); Sodium Level 138 mmol/L (136-145); Thyroid Stim Hormone (TSH) 2.82 uIU/mL (0.358-3.74); Troponin-I HS 20 pg/mL (3.0-78.0)
[2023-09-15] MEDS: dilTIAZem 25 MG/5 ML Vial 20 MG IV BOLUS (12:49)
[2023-09-15 13:00] LABS: Lactic Acid 1.7 mmol/L (0.4-1.9)
[2023-09-15 13:05] LABS: BNP,B-Type NATRIURETIC PEPTIDE 165.1 pg/mL (0-100)
--- NOTE | 2023-09-15 13:07 | EDS_ITS ---
HPI History of Present Illness Chief Complaint: Weakness [facility] Medical History (Updated 09/15/23 @ 13:[address] Bertram Yi DO) Anxiety Back pain COPD (chronic obstructive pulmonary disease) Foraminal stenosis of lumbosacral region ZAN (obstructive sleep apnea) PTSD (post-traumatic stress disorder) Home Medications NK 09/15/23 [History Last Taken Unknown] Allergy/AdvReac Type Severity Reaction Status Date / Time codeine Allergy Hives Verified 09/15/23 11:22 Iodinated Contrast Media Allergy Hives Verified 09/15/23 11:22 [Iodinated Contrast Media - IV Dye] diclofenac AdvReac Swelling Verified 09/15/23 11:22 metaxalone AdvReac Swelling Verified 09/15/23 11:22 methylphenidate AdvReac hallucinati Verified 09/15/23 11:22 [From Ritalin] ons Phenylpiperazine AdvReac Other Verified 09/15/23 11:22 Antidepressant Tetracyclic Antidepressants AdvReac Other Verified 09/15/23 11:22 Tricyclic Antidepressants AdvReac Other Verified 09/15/23 11:22 and Tricy Social History (Updated 04/23/20 @ 14:[address] Rosie Lucero MD) Smoking Status: Current every day smoker tobacco type: cigarettes EXAM Physical Exam Const Vital Signs: 09/15/23 11:19 09/15/23 11:19 09/15/23 11:22 Temperature 96.5 F L 96.5 F L 96.5 F L Temperature Source Temporal Temporal Temporal Pulse Rate 86 86 86 Respiratory Rate 18 16 18 Respiratory Effort Respiratory Pattern Blood Pressure 114/96 H 114/96 H 114/96 H Blood Pressure Mean 102 102 102 Pulse Ox 98 98 98 Oxygen Delivery Method Room Air Room Air Room Air Oxygen Flow Rate (L/min) 09/15/23 11:33 09/15/23 11:33 09/15/23 11:32 Temperature 97.8 F Temperature Source Temporal Pulse Rate 169 H 170 H Respiratory Rate 15 16 Respiratory Effort Short of Breath Respiratory Pattern Normal Blood Pressure 105/81 H 105/81 H Blood Pressure Mean 89 89 Pulse Ox 94 96 Oxygen Delivery Method Room Air Room Air Oxygen Flow Rate (L/min) 09/15/23 11:47 09/15/23 11:52 09/15/23 12:26 Temperature Temperature Source Pulse Rate 171 H 162 H Respiratory Rate 22 H 16 Respiratory Effort Short of Breath Respiratory Pattern Blood Pressure 132/105 H 131/82 H Blood Pressure Mean 114 98 Pulse Ox 97 95 Oxygen Delivery Method Nasal Cannula Nasal Cannula Oxygen Flow Rate (L/min) 2 2 09/15/23 12:32 09/15/23 13:00 09/15/23 14:00 Temperature 97.9 F 98.0 F 97.5 F L Temperature Source Temporal Temporal Temporal Pulse Rate 173 H 121 H 130 H Respiratory Rate 23 H 24 H 16 Respiratory Effort Respiratory Pattern Blood Pressure 124/87 H 149/87 H 116/67 Blood Pressure Mean 99 107 83 Pulse Ox 96 95 94 Oxygen Delivery Method Nasal Cannula Nasal Cannula Nasal Cannula Oxygen Flow Rate (L/min) 2 2 09/15/23 15:00 09/15/23 15:00 09/15/23 16:00 Temperature 98.4 F 98.4 F 97.4 F L Temperature Source Oral Oral Temporal Pulse Rate 102 H 107 H 98 Respiratory Rate 20 H 20 H 24 H Respiratory Effort Respiratory Pattern Blood Pressure 116/71 116/71 128/73 H Blood Pressure Mean 86 86 91 Pulse Ox 94 94 98 Oxygen Delivery Method Nasal Cannula Nasal Cannula Nasal Cannula Oxygen Flow Rate (L/min) MDM MDM MDM Narrative Medical decision making narrative: Differential broad based including but not limited to atrial and ventricular tachy dysrhythmias, ACS, sepsis, pneumonia, dehydration, electrolyte disturbance patient brought into the room where he was noted to be significantly tachycardic. EKG shows a supraventricular tachycardia with right bundle branch block. I suspect an underlying flutter. There is not much variation from around 170 bpm. I asked to have the patient moved to resuscitation room. I spoke with him at length and we went ahead and gave him 6 mg of adenosine which did not cause any change. 12 mg resulted in a slowing down of the ventricular rate and the emergence of flutter waves. He then received 20 mg of Cardizem which slowed him down to around 110 to 130 bpm. This then changed his rhythm to apparent atrial fibrillation on the monitor. He was given a dose of Lovenox and placed on Cardizem drip. Hemoglobin 18.3 white count 9.8 platelet count of 177. Patient troponin 20 lactic acid 1.7 glucose 145 TSH 2.82 BNP 6.65. Sodium potassium and magnesium were within normal limits. My independent interpretation of the chest x-ray is mild cardiomegaly but no overt failure. At this point I spoke with the patient. He has been wearing BiPAP at night for reported sleep apnea. This is not something that he was prescribed. He states he was given the machine. I wonder if he needs to have a formal titration if he has pulmonary hypertension on echo. These are things that I expressed to him that he may wish to investigate with his doctors. At this point our plan is admission into the hospital. History & Record Review Discussion w/independent historian: Patient and Family Lab Data Attestation: I reviewed the patient's lab results. Labs: Laboratory Results - last 24 hr 09/15/23 09/15/23 11:35 12:16 WBC 9.8 RBC 6.14 Hgb 18.3 H* Hct 54.6 H MCV 88.9 MCH 29.8 MCHC 33.5 RDW Std Deviation 48.6 H RDW Coeff of Penelope 15.1 H Plt Count 177 MPV 9.4 Immature Gran % (Auto) 0.700 Neut % (Auto) 63.9 Lymph % (Auto) 20.5 [place] % (Auto) 11.9 H Eos % (Auto) 2.1 Baso % (Auto) 0.9 Absolute Neuts (auto) 6.3 Absolute Lymphs (auto) 2.01 Nucleated RBC % 0 Diff Path Review October foll PT 13.6 INR 1.0 APTT 26.4 Sodium 138 Potassium 4.1 Chloride 105 Carbon Dioxide 22.0 Anion Gap 11 BUN 20 H Creatinine 1.42 H Estim Creat Clear Calc 79.58 Est GFR (MDRD) Af Amer 65 Est GFR (MDRD) Non-Af 53 L BUN/Creatinine Ratio 14.1 Glucose 145 H Lactic Acid 1.7 Calcium 9.2 Magnesium 2.3 Total Bilirubin 0.80 Direct Bilirubin 0.22 AST 32 ALT 48 Alkaline Phosphatase 70 Troponin I High Sens 20 B-Natriuretic Peptide 165.1 H Total Protein 7.7 Albumin 3.4 Globulin 4.3 H Lipase 38 TSH 2.82 Radiography Diagnostic Testing: Clinical Impression(s) from Imaging Studies Chest X-Ray 09/15/23 12:34 IMPRESSION: Mild cardiomegaly. Electronically Signed: Emory Tejada MD at 12:50 EDT , EKG Initial EKG: Attestation: I personally reviewed and interpreted this EKG as follows: Comments: Probable atrial flutter with a ventricular rate of 170 bpm. Right bundle branch block noted Management Discussion w/another healthcare provider: Hospitalist Discharge Plan Dx/Rx/DC Orders Clinical Impression: Obstructive sleep apnea, Atrial fibrillation and flutter, Weakness Disposition Disposition: Acute Care Hospital [facility]
[2023-09-15] MEDS: Diltiazem 125 MG in Dextrose 5%-Water (100mL Bag) 100 ML CONT INF (13:41)
[2023-09-15] MEDS: dilTIAZem 25 MG/5 ML Vial 10 MG IV BOLUS (13:43)
--- NOTE | 2023-09-15 13:50 | HP.PCM.HOS_ITS ---
HPI - General General Date of Admission: 09/15/23 Date of Service: 09/15/23 Chief Complaint: Worsening weakness and progressive dyspnea with exertion HPI Narrative MARCEL TURCIOS, is a 62 M who presented to [facility] ED on with worsening weakness and progressive dyspnea with exertion. Patient seen at bedside in the ED, granddaughter present. Patient was laying comfortably in bed, conversing normally and in no acute distress during our encounter. He was laying almost flat in bed and had no issues with breathing. Patient states he currently feels much better now than he did over the past few days. States he recently had dental pain that started last Wednesday and he had 2 teeth extracted on Wednesday, and since Wednesday he has felt significantly more tired and weak than his normal. He denies any significant dental pain or fevers or chills over that time. He lives in a trailer by himself down in [place] and was hardly able to do anything for himself, so he came to the ED for further evaluation. Patient's medical history is significant for morbid obesity, ZAN, presumed COPD, heavy smoking history and chronic back pain. States he was diagnosed with ZAN about 20 years ago, had a sleep study done at our hospital he believes. He was wearing his own CPAP up until about 1 year ago, when his CPAP broke. He has now been using a friend's CPAP since then and continues to feel refreshed in the morning upon awakening. He started smoking at age 12 and was smoking 1 to 1.5 packs/day over the past few years but has hardly smoked at all over the past 4 to 5 days due to fatigue and disinterest in smoking. He states that at one point in the past he was smoking up to 6 packs of cigarettes per day. He has never been on any home inhalers. Denies ever having a COPD exacerbation. Denies ever needing home oxygen. Patient states that over the past 4 to 5 months he has progressively become more short of breath with exertion. States that over the past few weeks it has gotten to the point where he becomes quite short of breath with walking around in his trailer. He denies any recent illnesses. He does state that he had both a stress test done and an echocardiogram done at some point in the past, and on chart review he had a negative stress test in July 2019 and last echo in February 2019 that showed an EF of 60% and no significant abnormalities. On arrival to the ED, patient was found to be tachycardic with what appeared to be either a wide-complex tachycardia versus A-fib/flutter with RVR. He was given adenosine and per the ED staff he appeared to have flutter waves. He was then given a dose of Cardizem and the rate seemed to flipped to A-fib with RVR. He was then started on a Cardizem drip and an EKG was obtained. EKG at that time actually showed normal sinus rhythm with heart rate in the 90s with a right bundle branch block. No ischemic changes noted. During our encounter, his heart rate remained in the 90s and appeared to be sinus rhythm. Patient states he felt palpitations after his dental procedure on Wednesday and has intermittently felt palpitations since then. However, he denies ever feeling palpitations prior to Wednesday. Patient denies any alcohol use. Denies any substance abuse. Does state that he has gained a fairly significant amount of weight over the past few years since he retired from his job. No other acute concerns this time. [facility] Medical History Anxiety Back pain COPD (chronic obstructive pulmonary disease) Foraminal stenosis of lumbosacral region ZAN (obstructive sleep apnea) PTSD (post-traumatic stress disorder) Home Medications NK 09/15/23 [History Last Taken Unknown] Allergy/AdvReac Type Severity Reaction Status Date / Time codeine Allergy Hives Verified 09/15/23 11:22 Iodinated Contrast Media Allergy Hives Verified 09/15/23 11:22 [Iodinated Contrast Media - IV Dye] diclofenac AdvReac Swelling Verified 09/15/23 11:22 metaxalone AdvReac Swelling Verified 09/15/23 11:22 methylphenidate AdvReac hallucinati Verified 09/15/23 11:22 [From Ritalin] ons Phenylpiperazine AdvReac Other Verified 09/15/23 11:22 Antidepressant Tetracyclic Antidepressants AdvReac Other Verified 09/15/23 11:22 Tricyclic Antidepressants AdvReac Other Verified 09/15/23 11:22 and Tricy Social History Smoking Status: Current every day smoker tobacco type: cigarettes ROS Constitutional Constitutional: Reports fatigue and weakness; Denies chills or fever(s) Eyes Eyes: Denies change in vision Cardiovascular Cardiovascular: Reports dyspnea on exertion and palpitations; Denies chest pain, edema, lightheadedness, paroxysmal nocturnal dyspnea, rapid heart rate or syncope Respiratory/Chest Respiratory/Chest: Reports shortness of breath with exertion; Denies cough, productive cough, shortness of breath at rest or wheezing Gastrointestinal Gastrointestinal: Reports constipation; Denies abdominal pain, diarrhea, nausea or vomiting Genitourinary Genitourinary: Denies dysuria Musculoskeletal Musculoskeletal: Reports back pain; Denies arthralgias or myalgias Neurologic Neurologic: Denies abnormal gait, abnormal speech, confusion, dizziness, focal weakness, headache(s), numbness or paresthesias Vital Signs Vital Signs Vital Signs: 09/15/23 11:19 09/15/23 11:19 09/15/23 11:22 Temperature 96.5 F L 96.5 F L 96.5 F L Temperature Source Temporal Temporal Temporal Pulse Rate 86 86 86 Respiratory Rate 18 16 18 Respiratory Effort Respiratory Pattern Blood Pressure 114/96 H 114/96 H 114/96 H Blood Pressure Mean 102 102 102 Pulse Ox 98 98 98 Oxygen Delivery Method Room Air Room Air Room Air Oxygen Flow Rate (L/min) 09/15/23 11:33 09/15/23 11:33 09/15/23 11:32 Temperature 97.8 F Temperature Source Temporal Pulse Rate 169 H 170 H Respiratory Rate 15 16 Respiratory Effort Short of Breath Respiratory Pattern Normal Blood Pressure 105/81 H 105/81 H Blood Pressure Mean 89 89 Pulse Ox 94 96 Oxygen Delivery Method Room Air Room Air Oxygen Flow Rate (L/min) 09/15/23 11:47 09/15/23 11:52 09/15/23 12:26 Temperature Temperature Source Pulse Rate 171 H 162 H Respiratory Rate 22 H 16 Respiratory Effort Short of Breath Respiratory Pattern Blood Pressure 132/105 H 131/82 H Blood Pressure Mean 114 98 Pulse Ox 97 95 Oxygen Delivery Method Nasal Cannula Nasal Cannula Oxygen Flow Rate (L/min) 2 2 09/15/23 12:32 09/15/23 13:00 Temperature 97.9 F 98.0 F Temperature Source Temporal Temporal Pulse Rate 173 H 121 H Respiratory Rate 23 H 24 H Respiratory Effort Respiratory Pattern Blood Pressure 124/87 H 149/87 H Blood Pressure Mean 99 107 Pulse Ox 96 95 Oxygen Delivery Method Nasal Cannula Nasal Cannula Oxygen Flow Rate (L/min) 2 Weight Weight: 144.3 kg Body Mass Index (BMI) 41.9 Physical Exam Const alert, oriented x3 and no apparent distress Constitutional Narrative: Pleasant middle-age male, morbidly obese, disheveled appearing, otherwise laying comfortably in bed, conversing normally, in no acute distress. General Appearance: cooperative and comfortable HEENT normocephalic, head/scalp atraumatic, hearing grossly normal bilaterally and nasal mucous membranes and turbinates normal HEENT Narrative: Poor dentition. Eyes PERRL, EOMs intact bilaterally and conjunctivae normal Neck full ROM and no JVD Chest inspection of chest normal Resp normal respiratory effort and no use of accessory muscles Resp Narrative: Breathing comfortably on 2 L nasal cannula with oxygen saturations in the mid to high 90s. Good air movement bilaterally with very mild and expiratory wheezes. No crackles noted. Cardio regular rate, regular rhythm, no murmurs and peripheral pulses 2+ throughout GI GI Narrative: Mildly distended but soft and nontender to palpation. Back/Spine normal ROM Extremity normal to inspection, full ROM and no pedal edema Skin no rashes or lesions noted Neuro moves all extremities and no focal motor deficits Speech: speech normal Motor Exam: strength 5/5 throughout Psych mental status grossly normal Results Lab / Micro Data 09/15/23 11:35 09/15/23 11:35 Labs: Laboratory Results - last 24 hr 09/15/23 11:35: WBC 9.8, RBC 6.14, Hgb 18.3 H*, Hct 54.6 H, MCV 88.9, MCH 29.8, MCHC 33.5, RDW Std Deviation 48.6 H, RDW Coeff of Penelope 15.1 H, Plt Count 177, MPV 9.4, Immature Gran % (Auto) 0.700, Neut % (Auto) 63.9, Lymph % (Auto) 20.5, [place] % (Auto) 11.9 H, Eos % (Auto) 2.1, Baso % (Auto) 0.9, Absolute Neuts (auto) 6.3, Absolute Lymphs (auto) 2.01, Nucleated RBC % 0, Diff Path Review October, PT 13.6, INR 1.0, APTT 26.4, Sodium 138, Potassium 4.1, Chloride 105, Carbon Dioxide 22.0, Anion Gap 11, BUN 20 H, Creatinine 1.42 H, Estim Creat Clear Calc 79.58, Est GFR (MDRD) Af Amer 65, Est GFR (MDRD) Non-Af 53 L, BUN/Creatinine Ratio 14.1, Glucose 145 H, Calcium 9.2, Magnesium 2.3, Total Bilirubin 0.80, Direct Bilirubin 0.22, AST 32, ALT 48, Alkaline Phosphatase 70, Troponin I High Sens 20, Total Protein 7.7, Albumin 3.4, Globulin 4.3 H, Lipase 38, TSH 2.82 09/15/23 12:16: Lactic Acid 1.7, B-Natriuretic Peptide 165.1 H Imaging Radiology Impression Chest X-Ray 09/15/23 12:34 IMPRESSION: Mild cardiomegaly. Electronically Signed: Emory Tejada MD at 12:50 EDT , Assessment & Plan Assessment/Plan (1) Weakness: (2) Atrial fibrillation and flutter: PLAN: Plan Patient is a 62-year-old male who presented [facility] ED on 09/15/2023 with worsening weakness and dyspnea on exertion. 1. New onset A-fib/a flutter with RVR ? Initially with concern for wide-complex tachycardia but after administration of adenosine, more consistent with A-fib/flutter. Given dose of IV Cardizem with conversion to sinus rhythm. EKG showed normal sinus rhythm with right bu ndle branch block. ? [id number] score of 0 but patient has poor medical follow up and has significant risk factors as noted below. ? Admit under inpatient status to PCU. Cardiology consulted. Echo ordered. Okay to continue IV Cardizem drip, will also start Lopressor 25 mg twice daily. Given 1 dose of therapeutic Lovenox in the ED, will start Eliquis 5 mg twice daily. Continue cardiac monitoring. 2. Worsening dyspnea on exertion ? Have concern that this could be related to underlying CAD given his risk factors of obesity, heavy smoking history and possible untreated hypertension and hyperlipidemia. ? Echo ordered and cardiology consulted as above. Will keep patient n.p.o. at midnight for possible stress test versus left heart cath tomorrow. 3. Weakness ? Suspect patient has some degree of debility at baseline given his morbid obesity and reported chronic back pain, was likely exacerbated by new onset A- fib with RVR. PT/OT/case management consulted. 4. Suspected TAINA ? Creatinine 1.42 on admit, baseline creatinine was 0.9-1.1 back in 2020, has not been checked since then. Suspect mild prerenal TAINA due to A-fib with RVR and mildly depletion. Given 1 L of IV fluids in the ED, follow-up a.m. BMP and urine output. UA, urine protein creatinine ratio and urine sodium ordered. 5. Mild erythrocytosis ? Hemoglobin 18.3 on admit. Previously had hemoglobin values between 17 and 18 in 2020. Suspect secondary to heavy smoking history. Follow-up a.m. CBC. 6. COPD ? Patient denies any formal diagnosis, no PFTs noted in the chart. However, has presumed COPD given significant smoking history. Chest x-ray on admit showed mild cardiomegaly, mild hyperexpansion of the lungs. Okay to treat with DuoNebs as needed while inpatient, recommend establishing with pulmonology in the office on discharge. 7. ZAN ? Reportedly diagnosed about 20 years ago with formal sleep study. Was using his own CPAP machine until about 1 year ago when it broke, has now been using his friend CPAP machine at the patient's settings that he had on his previous CPAP with good results. Continue CPAP while inpatient. Recommend outpatient follow-up with sleep medicine for appropriate titration of the CPAP. 8. Current smoker with heavy smoking history ? Was smoking 1 to 1.5 packs/day until the past few weeks, when he has had decreased energy and decreased desire to smoke. States he has not smoked in the past 4 to 5 days. Started smoking at around age 12. Was smoking up to 6 packs of cigarettes per day at its peak. ? Encouraged smoking cessation. Nicotine replacement therapy available as needed. 9. Mild hyperglycemia ? Glucose 145 on admit. No previous diagnosis of diabetes. A1c 5.8% on admit. No need for further glucose monitoring while inpatient, recommend outpatient follow-up. 10. Recent dental extraction ? Per patient, had 2 teeth extracted 2 days prior to admission. Poor dentition noted but no overt signs of infection on exam. Outpatient follow-up. 11. Morbid obesity ? BMI 47 on admit. Complicates hospital course, care and prognosis. DVT prophylaxis: Eliquis CODE STATUS: Full code, verified Expected disposition: TBD Total clinical time spent by myself addressing the patient's medical issues, reviewing all the data, and collaborating with patient's care team: 75 minutes. Charges/Coding Visit Charges Inpatient E&M: 59375 Init Hosp L3
--- NOTE | 2023-09-15 14:11 | ECHOCS_ITS ---
Reason For Study: Afib/Flutter Procedure This was a 2D Doppler, Color Flow transthoracic echocardiogram. The study was technically difficult. Limited views were obtained. Contrast injection was performed. Exam performed portable in ED. Left Ventricle Normal left ventricle. The estimated ejection fraction is 65 %. No regional wall motion abnormalities noted. Right Ventricle Normal RV size. Normal systolic function. Pericardium/Pleural No pericardial effusion. Medication Diluted definity 3ml given slow IV push to enhance endocardial definition. MMode/2D Measurements & Calculations RVDd: 3.7 cm Time Measurements MV dec time: 0.20 sec Doppler Measurements & Calculations MV E max jose: 55.2 cm/sec Lat Peak E' Jose: 14.7 cm/sec Med Peak E' Jose: 9.6 cm/sec MV A max jose: 54.8 cm/sec E/E' lat: 3.7 E/E' med: 5.7 MV E/A: 1.0 MV V2 max: 65.6 cm/sec Ao V2 max: 112.9 cm/sec LV V1 max: 95.4 cm/sec MV max P.7 mmHg Ao max P.1 mmHg LV V1 max P.6 mmHg MV V2 mean: 47.4 cm/sec Ao V2 mean: 90.2 cm/sec LV V1 mean P.7 mmHg MV mean P.98 mmHg Ao mean P.4 mmHg LV V1 mean: 59.7 cm/sec MV V2 VTI: 16.9 cm Ao V2 VTI: 19.1 cm LV V1 VTI: 14.5 cm AV (velocity ratio): 0.76 ECHO/Echo Complete W/ Contrast Interpretation Summary Normal left ventricle. The estimated ejection fraction is 65 %. The study was technically difficult. Contrast injection was performed. Ordering Physician: Rod Castellanos Performed By: Jose Gaines RCS
[2023-09-15] MEDS: Enoxaparin 150 MG/ML Syringe SC (15:02)
[2023-09-15] MEDS: Metoprolol Tartrate 25 MG Tablet PO (17:15)
--- NOTE | 2023-09-15 17:21 | EKG12_ITS ---
Test Reason : ADMIT Blood Pressure : / mmHG Vent. Rate : 100 BPM Atrial Rate : 100 BPM P-R Int : 160 ms QRS Dur : 126 ms QT Int : 368 ms P-R-T Axes : 038 -21 -04 degrees QTc Int : 474 ms Normal sinus rhythm Right bundle branch block Inferior infarct , age undetermined Abnormal ECG When compared with ECG of 15-SEP-2023 11:40, MANUAL COMPARISON REQUIRED, DATA IS UNCONFIRMED Confirmed by Asael Marino ([id number]), assignment editor SONA KNIGHT ([id number]) on 09/17/2023 6:19:15 AM Referred By: Confirmed By:Asael Marino
--- NOTE | 2023-09-15 18:08 | PCM.CONS.C ---
Assessment & Plan Assessment/Plan (1) Atrial fibrillation and flutter: PLAN: Paroxysmal atrial flutter. He presents with paroxysmal atrial flutter. He spontaneously converted to sinus rhythm. No recommendation will be to place him on a beta-ortega with Toprol-XL 50 mg a day. While he is in hospital he can be on metoprolol 25 mg twice a day. His echocardiogram performed today demonstrated preserved left ventricular systolic function though it was a suboptimal study. At this time I would not anticoagulate him. I do not think that his atrial flutter was necessarily related to his generalized weakness. Thank you for allowing me to participate in the care of your patient. Please don't hesitate to call if any issues arise. HPI Consult Data Date of Consult: 09/15/23 HPI Narrative HPI Narrative: MARCEL TURCIOS, is a 62 M who presents to the emergency room with worsening weakness and dyspnea on exertion. He says that he was sent to the emergency room by his daughter who felt that he was septic and so came to the emergency room. He does have a history of morbid obesity, obstructive sleep apnea status post CPAP use, heavy tobacco use. He has had occasional palpitations but denies any chest pain and paroxysmal nocturnal dyspnea. He has been short of breath over the last couple years. He says that he did have an echocardiogram as well as a stress test approximately 4 5 years ago all of which were normal. On arrival to the ED, patient was found to be tachycardic with atrial flutter with 2 1 block and was given intravenous adenosine. He was then started on intravenous diltiazem and transferred to the telemetry unit and cardiology was consulted via text. At this particular time he appears to be doing well. An echocardiogram was ordered which was a suboptimal study but demonstrated overall preserved left ventricular systolic function. He denies any neck arm or jaw discomfort suggest angina. While I was in the room he converted back to normal sinus rhythm [facility] Medical History Anxiety Back pain COPD (chronic obstructive pulmonary disease) Foraminal stenosis of lumbosacral region ZAN (obstructive sleep apnea) PTSD (post-traumatic stress disorder) Home Medications NK 09/15/23 [History Last Taken Unknown] Allergy/AdvReac Type Severity Reaction Status Date / Time codeine Allergy Hives Verified 03/20/24 11:22 Iodinated Contrast Media Allergy Hives Verified 09/15/23 11:22 [Iodinated Contrast Media - IV Dye] diclofenac AdvReac Swelling Verified 09/15/23 11:22 metaxalone AdvReac Swelling Verified 09/15/23 11:22 methylphenidate AdvReac hallucinati Verified 09/15/23 11:22 [From Ritalin] ons Phenylpiperazine AdvReac Other Verified 09/15/23 11:22 Antidepressant Tetracyclic Antidepressants AdvReac Other Verified 09/15/23 11:22 Tricyclic Antidepressants AdvReac Other Verified 09/15/23 11:22 and Tricy Social History Smoking Status: Current every day smoker tobacco type: cigarettes ROS Constitutional Constitutional: Denies fever(s) or weight loss Eyes Eyes: Reports systems reviewed and no addt'l complaints, except as documented ENT HEENT: Reports systems reviewed and no addt'l complaints, except as documented Cardiovascular Cardiovascular: Denies chest pain at rest, chest pain with activity, dyspnea at rest, dyspnea on exertion, edema, palpitations or paroxysmal nocturnal dyspnea Respiratory/Chest Respiratory/Chest: Denies dyspnea on exertion, productive cough, shortness of breath at rest or shortness of breath with exertion Gastrointestinal Gastrointestinal: Denies change in bowel habits, nausea, vomiting or weight changes Genitourinary Genitourinary: Denies difficulty urinating Musculoskeletal Musculoskeletal: Denies joint stiffness or muscle weakness Integumentary Integumentary: Denies lesions Neurologic Neurologic: Denies dizziness or syncope Psychiatric Psychiatric: Denies anxiety Endocrine Endocrinology: Denies excessive sweating or fatigue Hematologic/Lymphatic Hematologic/Lymphatic: Denies anemia Allergic/Immunologic Allergic/Immunologic: Denies seasonal rhinorrhea Physical Exam Const alert, oriented x3 and no apparent distress General Appearance: cooperative HEENT hearing grossly normal bilaterally Head and Scalp: atraumatic Eyes EOMs intact bilaterally Neck General: normal visual inspection Chest inspection of chest normal and palpation of chest normal Resp normal respiratory effort Auscultation: clear to auscultation bilaterally Cardio regular rate, regular rhythm, S1 normal heart sound and S2 normal heart sound Jugular Venous Distention: JVD GI normal to inspection, nondistended, normoactive bowel sounds Extremity normal capillary refill and no pedal edema Peripheral Pulses: Yes pulses 2+ throughout and femoral pulses present Skin no rashes or lesions noted Neuro oriented x3 and CN's II-XII intact bilaterally Psych Appearance: grossly normal and appropriate Risk Stratification Risk Stratification Applicable: No Objective Data Vital Signs: Vital Signs Temp Pulse Resp BP Pulse Ox O2 Del Method O2 Flow Rate 98.2 F 98 28 H 119/86 H 93 Nasal Cannula 2 09/15/23 17:00 09/15/23 17:15 09/15/23 17:00 09/15/23 17:15 09/15/23 17:40 09/15/23 17:40 09/15/23 17:40 Oxygen Flow Rate (L/min) 2 Oxygen Delivery Method Nasal Cannula Weight: 362 lb 6.4 oz Body Mass Index (BMI) 47.8 Lab / Micro Data 09/15/23 11:35 09/15/23 11:35 Labs: Laboratory Results - last 24 hr 09/15/23 11:35: WBC 9.8, RBC 6.14, Hgb 18.3 H*, Hct 54.6 H, MCV 88.9, MCH 29.8, MCHC 33.5, RDW Std Deviation 48.6 H, RDW Coeff of [place] 15.1 H, Plt Count 177, MPV 9.4, Immature Gran % (Auto) 0.700, Neut % (Auto) 63.9, Lymph % (Auto) 20.5, [place] % (Auto) 11.9 H, Eos % (Auto) 2.1, Baso % (Auto) 0.9, Absolute Neuts (auto) 6.3, Absolute Lymphs (auto) 2.01, Nucleated RBC % 0, Diff Path Review October, PT 13.6, INR 1.0, APTT 26.4, Sodium 138, Potassium 4.1, Chloride 105, Carbon Dioxide 22.0, Anion Gap 11, BUN 20 H, Creatinine 1.42 H, Estim Creat Clear Calc 79.58, Est GFR (MDRD) Af Amer 65, Est GFR (MDRD) Non-Af 53 L, BUN/Creatinine Ratio 14.1, Glucose 145 H, Calcium 9.2, Magnesium 2.3, Total Bilirubin 0.80, Direct Bilirubin 0.22, AST 32, ALT 48, Alkaline Phosphatase 70, Troponin I High Sens 20, Total Protein 7.7, Albumin 3.4, Globulin 4.3 H, Lipase 38, TSH 2.82 09/15/23 12:16: Lactic Acid 1.7, B-Natriuretic Peptide 165.1 H Cardiology Labs/Tests 09/15/23 11:35: WBC 9.8, RBC 6.14, Hgb 18.3 H*, Hct 54.6 H, MCV 88.9, MCH 29.8, MCHC 33.5, Plt Count 177, MPV 9.4, Immature Gran % (Auto) 0.700, Neut % (Auto) 63.9, Lymph % (Auto) 20.5, [place] % (Auto) 11.9 H, Eos % (Auto) 2.1, Baso % (Auto) 0.9, Absolute Neuts (auto) 6.3, Nucleated RBC % 0, PT 13.6, INR 1.0, APTT 26.4, Sodium 138, Potassium 4.1, Chloride 105, Carbon Dioxide 22.0, Anion Gap 11, BUN 20 H, Creatinine 1.42 H, Est GFR (MDRD) Af Amer 65, Est GFR (MDRD) Non-Af 53 L, BUN/Creatinine Ratio 14.1, Glucose 145 H, Calcium 9.2, Magnesium 2.3, Total Bilirubin 0.80, Direct Bilirubin 0.22 09/15/23 12:16: Lactic Acid 1.7, B-Natriuretic Peptide 165.1 H Rhythm: EKG: ECHO: Stress Test: Cardiac Cath: PCI: CT Surgery: Holter monitor: EPS: PPM: CXR: Chest CT Scan: Radiography Diagnostic Testing: Radiology Impression Chest X-Ray 09/15/23 12:34 IMPRESSION: Mild cardiomegaly. Electronically Signed: Emory Tejada MD at 12:50 EDT , Echocardiogram 09/15/23 14:11 Interpretation Summary Normal left ventricle. The estimated ejection fraction is 65 %. The study was technically difficult. Contrast injection was performed. Ordering Physician: Rod Castellanos Performed By: Jose Gaines RCS
[2023-09-15 18:36] LABS: Bacteria 0 SEEN /hpf (None Seen); Squamous Epithelial Cells - UA 0 SEEN /hpf (0-5)
[2023-09-15 18:37] LABS: Color, Urine Yellow (Yellow); Glucose, Dipstick Normal (Normal); Ketone-Dipstick 50 mg/dl (Negative); Leukocyte Esterase-Dipstick 25 /ul (Negative); Nitrite-Dipstick Negative (Negative); Occult Blood-Urine 150 /ul (Negative); Protein-Dipstick 30 mg/dl (Negative); Specific Gravity, Urine 1.025 (1.002-1.030); Urine Clarity Clear (Clear); Urine Urobilinogen 4 mg/dl (Normal)
[2023-09-15 18:42] LABS: Urine Bilirubin Dipstick 3 mg/dL (Negative)
[2023-09-15 18:45] LABS: Red Blood Cells-Urine 0-5 SEEN /hpf (0-5); White Blood Cells 0-5 SEEN /hpf (0-5)
[2023-09-15 18:46] LABS: Hyaline Cast 0-5 SEEN /lpf (0-5); Mucous, Urine 3+ /hpf (<or=2+)
[2023-09-15 19:05] LABS: Protein, Urine (Random) 35.9 mg/dL (<11.9); Protein:Creat Ratio 84 mg/g CRE (0-200); Urine Sodium 16 mmol/L (Not Establ.)
[2023-09-15 21:00] LABS: Cholesterol 174 mg/dL (200); High Density Lipoprotein 45 mg/dL; Triglycerides 173 mg/dL; Very Low Density Lipoprotein 35 mg/dL (5-40)
[2023-09-15 21:17] LABS: Hemoglobin A1c 5.8 % (3.8-5.6)
[2023-09-15] MEDS: APIXABAN 5 MG TABLET PO (22:29)
[2023-09-16] VITALS (11 sets, daily range): BP systolic 98–157; BP diastolic 56–103; PULSE 75–98; RESP 14–20; TEMP 36.4–36.8; O2SAT 94–98
[2023-09-16 07:36] LABS: Hemoglobin 14.5 g/dL (13.0-16.5); Mean Corp Hgb Conc 32.2 g/dL (32-36); Mean Corpuscular Hgb 28.8 pg (27.0-32.0); Mean Corpuscular Volume 89.3 fL (80-94); Mean Platelet Vol. 9.4 fl (6.2-12.0); Platelet Count 146 K/mm3 (150-450); RBC Distribution Width CV 14.9 % (11.6-14.6); RBC Distribution Width SD 48.8 fl (35.1-43.9); Red Blood Count 5.04 M/mm3 (4.6-6.2); White Blood Count 7.9 K/mm3 (4.4-11.0)
[2023-09-16] MEDS: Ipratropium/Albuterol Sulfate 3 ML AMPUL.NEB INHALATION (08:03)
--- NOTE | 2023-09-16 08:08 | PCM.PN.CARD ---
Subjective Subjective Patient seen and evaluated. Appears to doing well Objective Data Vital Signs: Vital Signs Temp Pulse Resp BP Pulse Ox O2 Del Method O2 Flow Rate 98 F 77 18 107/60 95 Room Air 2 09/16/23 07:25 09/16/23 07:25 09/16/23 07:25 09/16/23 07:25 09/16/23 07:25 09/16/23 07:49 09/16/23 04:00 Oxygen Flow Rate (L/min) 2 Oxygen Delivery Method Room Air Weight: 362 lb 6.4 oz Body Mass Index (BMI) 47.8 Intake & Output: Intake and Output for Last 24 Hours 09/14/23 09/15/23 09/16/23 23:59 23:59 23:59 Intake Total 46.58 / 51.58 42.08 / 42.08 Output Total 400 / 400 Balance 46.58 / -198.42 -357.92 / -357.92 Lab / Micro Data 09/16/23 06:57 09/15/23 11:35 Labs: Laboratory Results - last 24 hr 09/15/23 11:35: WBC 9.8, RBC 6.14, Hgb 18.3 H*, Hct 54.6 H, MCV 88.9, MCH 29.8, MCHC 33.5, RDW Std Deviation 48.6 H, RDW Coeff of [place]elope 15.1 H, Plt Count 177, MPV 9.4, Immature Gran % (Auto) 0.700, Neut % (Auto) 63.9, Lymph % (Auto) 20.5, [place] % (Auto) 11.9 H, Eos % (Auto) 2.1, Baso % (Auto) 0.9, Absolute Neuts (auto) 6.3, Absolute Lymphs (auto) 2.01, Nucleated RBC % 0, Diff Path Review October, PT 13.6, INR 1.0, APTT 26.4, Sodium 138, Potassium 4.1, Chloride 105, Carbon Dioxide 22.0, Anion Gap 11, BUN 20 H, Creatinine 1.42 H, Estim Creat Clear Calc 79.58, Est GFR (MDRD) Af Amer 65, Est GFR (MDRD) Non-Af 53 L, BUN/Creatinine Ratio 14.1, Glucose 145 H, Hemoglobin A1c 5.8 H, Calcium 9.2, Magnesium 2.3, Total Bilirubin 0.80, Direct Bilirubin 0.22, AST 32, ALT 48, Alkaline Phosphatase 70, Troponin I High Sens 20, Total Protein 7.7, Albumin 3.4, Globulin 4.3 H, Triglycerides 173, Cholesterol 174, LDL Cholesterol 94, VLDL Cholesterol 35, HDL Cholesterol 45, Lipase 38, TSH 2.82 09/15/23 11:35: TSH 3.10 09/15/23 12:16: Lactic Acid 1.7, B-Natriuretic Peptide 165.1 H 09/15/23 17:45: Urine Color Yellow, Urine Clarity Clear, Urine pH 5.0, Ur Specific [place] 1.025, Urine Protein 30 H, Urine Glucose (UA) Normal, Urine Ketones 50 H, Urine Occult Blood 150 H, Urine Nitrite Negative, Urine Bilirubin 3 H, Urine Urobilinogen 4 H, Ur Leukocyte Esterase 25 H, Urine RBC 0-5 SEEN, Urine WBC 0-5 SEEN, Ur Squamous Epith Cells 0 SEEN, Urine Bacteria 0 SEEN, Hyaline Casts 0-5 SEEN, Urine Mucus 3+, U Random Total Protein 35.9 H, Ur Random Sodium 16, Urine Creatinine 427.00, Protein/Creatinin Ratio 84 09/16/23 06:57: WBC 7.9, RBC 5.04, Hgb 14.5, Hct 45.0, MCV 89.3, MCH 28.8, MCHC 32.2, RDW Std Deviation 48.8 H, RDW Coeff of [place]elope 14.9 H, Plt Count 146 L, MPV 9.4 Cardiology Labs/Tests 09/15/23 11:35: WBC 9.8, RBC 6.14, Hgb 18.3 H*, Hct 54.6 H, MCV 88.9, MCH 29.8, MCHC 33.5, Plt Count 177, MPV 9.4, Immature Gran % (Auto) 0.700, Neut % (Auto) 63.9, Lymph % (Auto) 20.5, [place] % (Auto) 11.9 H, Eos % (Auto) 2.1, Baso % (Auto) 0.9, Absolute Neuts (auto) 6.3, Nucleated RBC % 0, PT 13.6, INR 1.0, APTT 26.4, Sodium 138, Potassium 4.1, Chloride 105, Carbon Dioxide 22.0, Anion Gap 11, BUN 20 H, Creatinine 1.42 H, Est GFR (MDRD) Af Amer 65, Est GFR (MDRD) Non-Af 53 L, BUN/Creatinine Ratio 14.1, Glucose 145 H, Hemoglobin A1c 5.8 H, Calcium 9.2, Magnesium 2.3, Total Bilirubin 0.80, Direct Bilirubin 0.22, Triglycerides 173, Cholesterol 174, LDL Cholesterol 94, VLDL Cholesterol 35, HDL Cholesterol 45 09/15/23 12:16: Lactic Acid 1.7, B-Natriuretic Peptide 165.1 H 09/15/23 17:45: Urine Color Yellow, Urine Clarity Clear, Urine pH 5.0, Ur Specific [place] 1.025, Urine Protein 30 H, Urine Glucose (UA) Normal, Urine Ketones 50 H, Urine Occult Blood 150 H, Urine Nitrite Negative, Urine Bilirubin 3 H, Urine Urobilinogen 4 H, Ur Leukocyte Esterase 25 H, Urine RBC 0-5 SEEN, Urine WBC 0-5 SEEN 09/16/23 06:57: WBC 7.9, RBC 5.04, Hgb 14.5, Hct 45.0, MCV 89.3, MCH 28.8, MCHC 32.2, Plt Count 146 L, MPV 9.4 Rhythm: EKG: ECHO: Stress Test: Cardiac Cath: PCI: CT Surgery: Holter monitor: EPS: PPM: CXR: Chest CT Scan: Radiography Diagnostic Testing: Radiology Impression Chest X-Ray 09/15/23 12:34 IMPRESSION: Mild cardiomegaly. Electronically Signed: Emory Tejada MD at 12:50 EDT , Echocardiogram 09/15/23 14:11 Interpretation Summary Normal left ventricle. The estimated ejection fraction is 65 %. The study was technically difficult. Contrast injection was performed. Ordering Physician: Rod Castellanos Performed By: Jose Gaines RCS Physical Exam Const alert, oriented x3 and no apparent distress General Appearance: cooperative HEENT hearing grossly normal bilaterally Head and Scalp: atraumatic Eyes EOMs intact bilaterally Neck General: normal visual inspection Chest inspection of chest normal and palpation of chest normal Resp normal respiratory effort Auscultation: clear to auscultation bilaterally Cardio regular rate, regular rhythm, S1 normal heart sound and S2 normal heart sound Jugular Venous Distention: JVD GI normal to inspection, nondistended, normoactive bowel sounds Extremity normal capillary refill and no pedal edema Peripheral Pulses: Yes pulses 2+ throughout and femoral pulses present Skin no rashes or lesions noted Neuro oriented x3 and CN's II-XII intact bilaterally Psych Appearance: grossly normal and appropriate Assessment & Plan Assessment/Plan (1) Atrial fibrillation and flutter: PLAN: Paroxysmal atrial flutter. He presents with paroxysmal atrial flutter. He spontaneously converted to sinus rhythm. No recommendation will be to place him on a beta-ortega with Toprol-XL 50 mg a day. While he is in hospital he can be on metoprolol 25 mg twice a day. His echocardiogram performed today demonstrated preserved left ventricular systolic function though it was a suboptimal study. At this time I would not anticoagulate him. I do not think that his atrial flutter was necessarily related to his generalized weakness. Thank you for allowing me to participate in the care of your patient. Please don't hesitate to call if any issues arise.
--- NOTE | 2023-09-16 08:13 | PN.HOSP_ITS ---
Reason for Visit Reason for Visit: Diagnoses Unspecified atrial fibrillation (09/15/23) Unspecified atrial flutter (09/15/23) Weakness (09/15/23) Subjective Subjective Feels much better. Feels stronger. Thought that this was related to his recent tooth extraction. Objective Data Objective Data Vital Signs: Vital Signs Temp Pulse Resp BP Pulse Ox O2 Del Method O2 Flow Rate 36.6 C 77 18 107/60 95 Room Air 2 09/16/23 07:25 09/16/23 07:25 09/16/23 07:25 09/16/23 07:25 09/16/23 07:25 09/16/23 07:49 09/16/23 04:00 Oxygen Flow Rate (L/min) 2 Oxygen Delivery Method Room Air Weight: 164.382 kg Body Mass Index (BMI) 47.8 Intake & Output: Intake and Output for Last 24 Hours 09/14/23 09/15/23 09/16/23 23:59 23:59 23:59 Intake Total 46.58 / 51.58 42.08 / 42.08 Output Total 400 / 400 Balance 46.58 / -198.42 -357.92 / -357.92 Lab / Micro Data 09/16/23 06:57 09/16/23 06:57 Labs: Laboratory Results - last 24 hr 09/15/23 11:35: WBC 9.8, RBC 6.14, Hgb 18.3 H*, Hct 54.6 H, MCV 88.9, MCH 29.8, MCHC 33.5, RDW Std Deviation 48.6 H, RDW Coeff of [place]elope 15.1 H, Plt Count 177, MPV 9.4, Immature Gran % (Auto) 0.700, Neut % (Auto) 63.9, Lymph % (Auto) 20.5, [place] % (Auto) 11.9 H, Eos % (Auto) 2.1, Baso % (Auto) 0.9, Absolute Neuts (auto) 6.3, Absolute Lymphs (auto) 2.01, Nucleated RBC % 0, Diff Path Review October, PT 13.6, INR 1.0, APTT 26.4, Sodium 138, Potassium 4.1, Chloride 105, Carbon Dioxide 22.0, Anion Gap 11, BUN 20 H, Creatinine 1.42 H, Estim Creat Clear Calc 79.58, Est GFR (MDRD) Af Amer 65, Est GFR (MDRD) Non-Af 53 L, BUN/Creatinine Ratio 14.1, Glucose 145 H, Hemoglobin A1c 5.8 H, Calcium 9.2, Magnesium 2.3, Total Bilirubin 0.80, Direct Bilirubin 0.22, AST 32, ALT 48, Alkaline Phosphatase 70, Troponin I High Sens 20, Total Protein 7.7, Albumin 3.4, Globulin 4.3 H, Triglycerides 173, Cholesterol 174, LDL Cholesterol 94, VLDL Cholesterol 35, HDL Cholesterol 45, Lipase 38, TSH 2.82 09/15/23 11:35: TSH 3.10 09/15/23 12:16: Lactic Acid 1.7, B-Natriuretic Peptide 165.1 H 09/15/23 17:45: Urine Color Yellow, Urine Clarity Clear, Urine pH 5.0, Ur Specific [place] 1.025, Urine Protein 30 H, Urine Glucose (UA) Normal, Urine Ketones 50 H, Urine Occult Blood 150 H, Urine Nitrite Negative, Urine Bilirubin 3 H, Urine Urobilinogen 4 H, Ur Leukocyte Esterase 25 H, Urine RBC 0-5 SEEN, Urine WBC 0-5 SEEN, Ur Squamous Epith Cells 0 SEEN, Urine Bacteria 0 SEEN, Hyaline Casts 0-5 SEEN, Urine Mucus 3+, U Random Total Protein 35.9 H, Ur Random Sodium 16, Urine Creatinine 427.00, Protein/Creatinin Ratio 84 09/16/23 06:57: WBC 7.9, RBC 5.04, Hgb 14.5, Hct 45.0, MCV 89.3, MCH 28.8, MCHC 32.2, RDW Std Deviation 48.8 H, RDW Coeff of [place]elope 14.9 H, Plt Count 146 L, MPV 9.4 Radiography Diagnostic Testing: Radiology Impression Chest X-Ray 09/15/23 12:34 IMPRESSION: Mild cardiomegaly. Electronically Signed: Emory Tejada MD at 12:50 EDT , Echocardiogram 09/15/23 14:11 Interpretation Summary Normal left ventricle. The estimated ejection fraction is 65 %. The study was technically difficult. Contrast injection was performed. Ordering Physician: Rod Castellanos Performed By: Jose Gaines RCS Physical Exam Const alert and no apparent distress HEENT head/scalp atraumatic and moist oral mucous membranes Cardio regular rate, regular rhythm, S1 normal heart sound and S2 normal heart sound GI normal to inspection, nondistended, normoactive bowel sounds, soft to palpation and non-tender Extremity normal to inspection Psych affect normal Assessment & Plan Assessment/Plan (1) Weakness: (2) Atrial fibrillation and flutter: PLAN: Plan New onset A-fib/a flutter with RVR * Now in NSR. Given dose of IV Cardizem with conversion to sinus rhythm. EKG showed normal sinus rhythm with right bundle branch block. * [id number] score of 0 but patient has poor medical follow up and has si gnificant risk factors as noted below. * Cardiology following. * Echo shows an EF of 65% Worsening dyspnea on exertion * Improved with correction of the atrial fibrillation Weakness * Suspect patient has some degree of debility at baseline given his morbid obesity and reported chronic back pain, was likely exacerbated by new onset A- fib with RVR. PT/OT/case management consulted. Suspected TAINA * Resolved with IVF. Creatinine 1.42 on admit, baseline creatinine was 0.9-1.1 back in 2019, has not been checked since then. Mild erythrocytosis * Hemoglobin 18.3 on admit. Improved after IVF. Likely due to hemoconcentration. COPD * Patient denies any formal diagnosis, no PFTs noted in the chart. However, has presumed COPD given significant smoking history. Chest x-ray on admit showed mild cardiomegaly, mild hyperexpansion of the lungs. Okay to treat with DuoNebs as needed while inpatient, recommend establishing with pulmonology in the office on discharge. Chronic conditions: * ZAN? Reportedly diagnosed about 20 years ago with formal sleep study. Was using his own CPAP machine until about 1 year ago when it broke, has now been using his friend CPAP machine at the patient's settings that he had on his previous CPAP with good results. Continue CPAP while inpatient. Recommend outpatient follow-up with sleep medicine for appropriate titration of the CPAP. * Current smoker with heavy smoking history? Was smoking 1 to 1.5 packs/day until the past few weeks, when he has had decreased energy and decreased desire to smoke. States he has not smoked in the past 4 to 5 days. Started smoking at around age 12. Was smoking up to 6 packs of cigarettes per day at its peak.? Encouraged smoking cessation. Nicotine replacement therapy available as needed. * Mild hyperglycemia? Glucose 145 on admit. No previous diagnosis of diabetes. A1c 5.8% on admit. No need for further glucose monitoring while inpatient, recommend outpatient follow-up. * Recent dental extraction? Per patient, had 2 teeth extracted 2 days prior to admission. Poor dentition noted but no overt signs of infection on exam. Outpatient follow-up. * Morbid obesity? BMI 47 on admit. Complicates hospital course, care and prognosis. DVT prophylaxis: Eliquis CODE STATUS: Full code, verified Expected disposition: TBD. Await on PT OT evaluation. Charges/Coding Visit Charges Inpatient E&M: 23918 Subs Hosp L2
[2023-09-16 08:18] LABS: Anion Gap 6 (5-15); BUN 26 mg/dL (7-18); Calcium,Total 9.1 mg/dL (8.5-10.1); Chloride 109 mmol/L (98-107); Creatinine, Serum 1.04 mg/dL (0.70-1.30); EST Glomerular Filtration Rate 77 mL/min (>60); Est Glom Filt Rate - Afr Amer 93 mL/min (>60); Estimated Creatinine Clearance 116.91 ml/min; Glucose 125 mg/dL (74-106); Sodium Level 138 mmol/L (136-145)
[2023-09-16] MEDS: Metoprolol(XL)Succ 50 MG Tablet PO (09:33)
[2023-09-16] MEDS: APIXABAN 5 MG TABLET PO (09:33)
--- NOTE | 2023-09-16 11:00 | CASEMGMT ---
RN CM Face to Face with patient for initial transition planning/care coordination assessment. RN CM introduced self and role at [facility]. Patient lying in bed, alert and oriented. Patient willing to participate in assessment and is able to answer all questions appropriately. Care providers, pharmacy, and demographics verified. PCP: none, [facility] provided to patient and encouraged to follow-up, patient voiced understanding. Specialists: none Preferred Pharmacy: [facility] Insurance: none Prescription Benefit: none Living Will/HPOA: none LNOK: son Living Arrangements: Patient lives alone in a mobile home with 2 steps and railing to enter the home. Patient states he is independent at home. Transportation: self, family DME/HHC: Patient has cane, cpap, and nebuilzer at home. No previous HHC or SNF. Patient wishes to discharge home, denies need for home health at this time. Patient states he has no further needs or concerns at this time. CM to follow for discharge planning needs that may arise. Disposition Plan: Patient to discharge home with family support and follow-up plans in place. Amparo JAIN, RN, CM
--- NOTE | 2023-09-16 11:08 | CASEMGMT ---
SW met with patient. Introduced self and role at [facility]. Patient has been seen by Nevaeh from [facility]. SW provided patient with information on [facility], [facility], and prescription assistance programs. Patient declined any information on [facility] as he refuses to work with them. Leesa Ramos JANITORIAL [employer]
--- NOTE | 2023-09-16 12:59 | PCM.DC.SUM ---
Providers Date of Admission: 09/15/23 Primary Care Physician: Renea Primary Care Phys Consultations 09/15/23 16:50 Consult: Cardiology Routine Consulting Provider: Clark Lerma Reason for Consult: new onset afib with rvr EMERGENT Consult: No MD Notified: Yes Date Notified: 09/15/23 Time Notified: 17:31 Method of Notification: Text Reason For Visit: NEW ONSET AFIB W/ RVR Diagnosis Discharge Diagnosis (1) Weakness: Status: Acute Code(s): R53.1 - Weakness (2) Atrial fibrillation and flutter: Status: Acute Code(s): I48.91 - Unspecified atrial fibrillation; I48.92 - Unspecified atrial flutter Plan New onset A-fib/a flutter with RVR Now in NSR. Given dose of IV Cardizem with conversion to sinus rhythm. EKG showed normal sinus rhythm with right bundle branch block. [id number] score of 0 but patient has poor medical follow up and has significant risk factors as noted below. Cardiology following. Echo shows an EF of 65% Worsening dyspnea on exertion Improved with correction of the atrial fibrillation Weakness Exacerbated by afib. Seen by PT and OT, no additional therapy recommended. Suspected TAINA Resolved with IVF. Creatinine 1.42 on admit, baseline creatinine was 0.9-1.1 back in 2020, has not been checked since then. Mild erythrocytosis Hemoglobin 18.3 on admit. Improved after IVF. Likely due to hemoconcentration. COPD Patient denies any formal diagnosis, no PFTs noted in the chart. However, has presumed COPD given significant smoking history. Chest x-ray on admit showed mild cardiomegaly, mild hyperexpansion of the lungs. Okay to treat with DuoNebs as needed while inpatient, recommend establishing with pulmonology in the office on discharge. Chronic conditions: ZAN? Reportedly diagnosed about 20 years ago with formal sleep study. Was using his own CPAP machine until about 1 year ago when it broke, has now been using his friend CPAP machine at the patient's settings that he had on his previous CPAP with good results. Continue CPAP while inpatient. Recommend outpatient follow-up with pulm/sleep medicine for appropriate titration of the CPAP. Current smoker with heavy smoking history? Was smoking 1 to 1.5 packs/day until the past few weeks, when he has had decreased energy and decreased desire to smoke. States he has not smoked in the past 4 to 5 days. Started smoking at around age 12. Was smoking up to 6 packs of cigarettes per day at its peak.? Encouraged smoking cessation. Nicotine replacement therapy available as needed. Mild hyperglycemia? Glucose 145 on admit. No previous diagnosis of diabetes. A1c 5.8% on admit. No need for further glucose monitoring while inpatient, recommend outpatient follow-up. Recent dental extraction? Per patient, had 2 teeth extracted 2 days prior to admission. Poor dentition noted but no overt signs of infection on exam. Outpatient follow-up. Morbid obesity? BMI 47 on admit. Complicates hospital course, care and prognosis. CODE STATUS: Full code, verified Expected disposition:home Medications at Discharge Home Medications metoprolol succinate 50 mg tablet,extended release 24 hr 50 mg PO DAILY #30 tabs 09/16/23 Hospital Course Operations None Procedures 2-D Echocardiogram Summary of Care Provided Minutes Spent on Discharge: 32 Hospital Course: Patient presented with weakness. Patient was found to be in atrial fibrillation with RVR. Did convert to normal sinus rhythm. Patient will continue with metoprolol succinate 50 mg twice daily. Patient said [id number] score was 0 so no anticoagulation was indicated at this time. Patient follow-up cardiology as outpatient. Patient has underlying sleep apnea and COPD. Patient advised to follow-up pulmonology. Weight / BMI Weight Weight: 164.382 kg Body Mass Index (BMI) 47.8 ABG / Lab / Microbiology Data 09/16/23 06:57 09/16/23 06:57 Laboratory: Laboratory Results - last 24 hr 09/15/23 11:35: Hemoglobin A1c 5.8 H, Triglycerides 173, Cholesterol 174, LDL Cholesterol 94, VLDL Cholesterol 35, HDL Cholesterol 45, TSH 3.10 09/15/23 12:16: Lactic Acid 1.7, B-Natriuretic Peptide 165.1 H 09/15/23 17:45: Urine Color Yellow, Urine Clarity Clear, Urine pH 5.0, Ur Specific [place] 1.025, Urine Protein 30 H, Urine Glucose (UA) Normal, Urine Ketones 50 H, Urine Occult Blood 150 H, Urine Nitrite Negative, Urine Bilirubin 3 H, Urine Urobilinogen 4 H, Ur Leukocyte Esterase 25 H, Urine RBC 0-5 SEEN, Urine WBC 0-5 SEEN, Ur Squamous Epith Cells 0 SEEN, Urine Bacteria 0 SEEN, Hyaline Casts 0-5 SEEN, Urine Mucus 3+, U Random Total Protein 35.9 H, Ur Random Sodium 16, Urine Creatinine 427.00, Protein/Creatinin Ratio 84 09/16/23 06:57: WBC 7.9, RBC 5.04, Hgb 14.5, Hct 45.0, MCV 89.3, MCH 28.8, MCHC 32.2, RDW Std Deviation 48.8 H, RDW Coeff of Penelope 14.9 H, Plt Count 146 L, MPV 9.4, Sodium 138, Potassium 4.0, Chloride 109 H, Carbon Dioxide 23.0, Anion Gap 6, BUN 26 H, Creatinine 1.04, Estim Creat Clear Calc 116.91, Est GFR (MDRD) Af Amer 93, Est GFR (MDRD) Non-Af 77, BUN/Creatinine Ratio 25.0 H, Glucose 125 H, Calcium 9.1 Radiography Diagnostic Testing: Radiology Impression Echocardiogram 09/15/23 14:11 Interpretation Summary Normal left ventricle. The estimated ejection fraction is 65 %. The study was technically difficult. Contrast injection was performed. Ordering Physician: Rod Castellanos Performed By: Jose Gaines RCS D/C Instructions Discharge Diet: No restrictions Meaningful Use Info Meaningful Use Diagnoses (Choose all that apply): None applicable Discharge Plan Admission Admit Date/Time: 09/15/23 14:05 Primary Reason for Your Visit: atrial fibrillation with rapid ventricular rate. Attending Provider: Jose David Majano Primary Care Provider: Care Physician,No Primary Consulting Providers: Clark Lerma; Rod Castellanos Instructions Additional Instructions / Restrictions: You presented with an abnormal heart rhythm called atrial fibrillation which was fast. That was likely why you felt so weak and ill. You will be on medication, metoprolol, which will help control your heart rate. Do recommend that you follow-up with cardiology just for routine monitoring. Additionally with your history of sleep apnea, do recommend following up with pulmonology, lung doctors, for evaluation and see if that needs to be readjusted. Also get established with primary care doctor for routine follow-up. Discharge Orders/Prescriptions Prescriptions: New metoprolol succinate 50 mg Tablet Extended Release 24 Hr 50 mg PO DAILY Qty: 30 0RF Referrals / Follow Up: [facility] [Provider Group] - Within 1 Month [facility] [Provider Group] - Within 3 Months Care Physician,No Primary [Primary Care Provider] - Within 2 Weeks Disposition Disposition (needs filled in before D/C Order can be placed): Home, Self Care Charges/Coding Visit Charges Inpatient E&M: 95377 Disch Hosp >30min
--- NOTE | 2023-09-16 13:55 | PHA.DC.MC.R ---
Pharmacy [facility] has performed discharge medication reconciliation and counseling for this patient. The patient's discharge medication list was reviewed for discrepancies and discrepancies were resolved. The patient was counseled on the following discharge medications and changes in medications for homegoing were reviewed. 1. TOPROL XL The Reason for Use, instructions for use, and potential side effects were reviewed for all new medications. The patient's questions regarding all of their medications were answered. The patient was able to verbally demonstrate an understanding of their discharge medications. Medications at Discharge Home Medications metoprolol succinate 50 mg tablet,extended release 24 hr 50 mg PO DAILY #30 tabs 09/16/23
[2023-09-17 09:27] LABS: Pathologist Review Reviewed
== END 2023-09-16 14:40 | disposition home or self-care (01) | DRG 309 ==
LOC: ED 13:55 → PCU 16:19
PROVIDERS: Admitting Provider Hospitalist; Emergency Provider Emergency Medicine
DX: I48.91 Unspecified atrial fibrillation (principal); Z68.42 Body mass index [BMI] 45.0-49.9, adult; E66.01 Morbid (severe) obesity due to excess calories; J44.9 Chronic obstructive pulmonary disease, unspecified; I48.92 Unspecified atrial flutter; F17.210 Nicotine dependence, cigarettes, uncomplicated; I45.10 Unspecified right bundle-branch block; G47.33 Obstructive sleep apnea (adult) (pediatric); M54.9 Dorsalgia, unspecified; R53.81 Other malaise; R73.9 Hyperglycemia, unspecified
CPT/HCPCS: 36415; 71045; 80048; 80061; 80076; 81001; 82570; 83036; 83605; 83690; 83735; 83880; 84156; 84300; 84443; 84484; 85025; 85027; 85610; 85730; 87040; 93005; 93306; 94640; 94668; 97161; 97165; 99252; 99284; 99406; J7030; Q9957; A4216; C8929; G0463; J0153

== ENCOUNTER → 2024-12-07 | Outpatient (CLI) | payer MEDICARE, SELFPAY ==
[2024-12-07 10:47] LABS: Absolute Lymphocyte Count 2.41 X10^3/uL (0.83-4.51); Absolute Neutrophil Count 5.7 X10^3/uL (2.0-7.7); Basophil% 1.1 % (0-1); Eosinophils% 4.3 % (0-5); Hemoglobin 15.8 g/dL (13.0-16.5); Lymphocyte # 2.41 X10^3/ul (0.83-4.51); Lymphocyte % 25.7 % (19-41); Mean Corp Hgb Conc 32.9 g/dL (32-36); Mean Corpuscular Hgb 29.6 pg (27.0-32.0); Mean Corpuscular Volume 90.1 fL (80-94); Mean Platelet Vol. 9.2 fl (6.2-12.0); Monocyte# 0.66 X10^3/uL; Monocyte% 7.1 % (0-10); NRBC Flagged by Analyzer 0 % (0-5); Neutrophil # 5.73 X10^3/uL (2.7-7.7); Neutrophil % 61.2 % (47-70); Platelet Count 207 K/mm3 (150-450); RBC Distribution Width CV 15.1 % (11.6-14.6); RBC Distribution Width SD 49.7 fl (35.1-43.9); Red Blood Count 5.33 M/mm3 (4.6-6.2); White Blood Count 9.4 K/mm3 (4.4-11.0)
[2024-12-07 11:11] LABS: ALB/GLOB Ratio 1.4 RATIO (0.9-2.4); AST(SGOT) 30 U/L (<=37); Alanine Aminotransfer ALT/SGPT 44 U/L (<=46); Albumin, Serum 4.3 g/dL (3.4-4.8); Alkaline Phosphatase 78 U/L (40-129); Anion Gap 13 (5-15); BUN 11 mg/dL (4-19); BUN/Creat Ratio 10.5 RATIO (10-20); Calcium,Total 9.4 mg/dL (7.6-11.0); Carbon Dioxide 21.2 mmol/L (21.0-32.0); Chloride 104 mmol/L (98-108); Cholesterol 212 mg/dL (<=200); Creatinine, Serum 1.05 mg/dL (0.70-1.20); EST Glomerular Filtration Rate 79 (>60); Glucose 137 mg/dL (70-99); High Density Lipoprotein 55 mg/dL; Potassium 4.2 mmol/L (3.3-5.1); Protein, Total 7.2 g/dL (5.9-8.4); Sodium Level 138 mmol/L (133-145); Total Bilirubin 0.49 mg/dL (0.00-1.30)
== END | disposition home or self-care (01) ==
PROVIDERS: PCP Family Medicine; Referring Provider Family Medicine; Visit Provider Family Medicine
DX: J44.9 Chronic obstructive pulmonary disease, unspecified (principal); E66.813 Obesity, class 3; R00.0 Tachycardia, unspecified
CPT/HCPCS: 36415; 80053; 82465; 83718; 83735; 84443; 85025

== ENCOUNTER 2024-12-08 11:59 | Inpatient (IN) | payer MEDICARE, SELFPAY ==
[2024-12-08] VITALS (8 sets, daily range): BP systolic 139–181; BP diastolic 89–117; PULSE 101–108; RESP 18–30; TEMP 36.5–36.9; O2SAT 93–97; BMI 49.9; BMI 49.4
--- NOTE | 2024-12-08 12:26 | ED.RN ---
PT HAS COPD WITH SOB. PT STATES HE USES HIS BI-PAP 24.7 BUT DROVE HIMSELF HERE TODAY
--- NOTE | 2024-12-08 12:41 | RAD_ITS ---
PROCEDURE: CHEST PA AND LATERAL 12/08/2024 REASON FOR EXAM: CHEST PAIN TECHNIQUE: CHEST PA AND LATERAL COMPARISON: 09/15/2023 FINDINGS: Right lower lobe opacity may reflect atelectasis, pneumonia, and/or aspiration. No pleural effusion or pneumothorax. Mild pulmonary vascular congestion. Cardiac silhouette is unchanged. No acute fractures. RAD/Chest PA and Lateral IMPRESSION: Right lower lobe opacity may reflect atelectasis, pneumonia, and/or aspiration. No pleural effusion or pneumothorax. Mild pulmonary vascular congestion. Reading Location: [id number]
--- NOTE | 2024-12-08 12:41 | ED.VIS.DYS ---
HPI <YASMANY Helton - Last Filed: 12/08/24 15:56> History of Present Illness Chief Complaint: Shortness of Breath Narrative Narrative: Patient presenting today due to concerns for abnormal heart rate. He reports that he checks his heart rate daily with his blood pressure cuff and his pulse oximeter, it was reading in the 50s which is unusual for him, prompting him to come in to be seen. He reports that over the last year he has had chronic dyspnea with exertion. He is unable to ambulate from his bed to the bathroom in his small trailer without feeling profoundly short of breath. He reports that he has not been able to take a shower over the last 3 weeks due to feeling so short of breath. He admits to smoking about 6 packs of cigarettes daily, however he states he only smokes 1/2 to 3/4 of each cigarette. He recently established with a PCP on Wednesday and was started on inhalers for COPD, he reports that these are helping. He does use BiPAP due to a history of ZAN and states that he stays on the BiPAP the majority of each day. He reports chronic left-sided chest pain that radiates across his chest, he reports that his pain today is not any worse than normal. He denies fevers, chills, recent illness. PE Risk Factors: Negative for Prior DVT or PE, Recent surgery or Recent travel [facility] <YASMANY Helton - Last Filed: 12/08/24 15:56> [facility] Medical History PTSD (post-traumatic stress disorder) Foraminal stenosis of lumbosacral region ZAN (obstructive sleep apnea) Back pain Anxiety COPD (chronic obstructive pulmonary disease) Radiculitis of leg Lumbar canal stenosis Foraminal stenosis of lumbosacral region Back pain Anxiety COPD (chronic obstructive pulmonary disease) Obstructive sleep apnea Home Medications ?Medication ?Instructions ?Recorded ?Last Taken ?Type albuterol sulfate 1.25 mg/3 mL 1.25 mg inhalation Q4H PRN PRN 12/08/24 Unknown History solution for nebulization dyspnea budesonide-formoterol HFA 160 2 inh inhalation Q12H 12/08/24 Unknown History mcg-4.5 mcg/actuation aerosol inhaler (Breyna) magnesium oxide 400 mg (241.3 mg 400 mg PO BID 12/08/24 Unknown History magnesium) tablet Allergy/AdvReac Type Severity Reaction Status Date / Time codeine Allergy Hives Verified 12/08/24 21:09 Iodinated Contrast Media Allergy Hives Verified 12/08/24 21:09 (Iodinated Contrast Media - IV Dye) diclofenac AdvReac Swelling Verified 12/08/24 21:09 metaxalone AdvReac Swelling Verified 12/08/24 21:09 methylphenidate (From AdvReac hallucinati Verified 12/08/24 21:09 Ritalin) ons Phenylpiperazine AdvReac Other Verified 12/08/24 21:09 Antidepressant Tetracyclic Antidepressants AdvReac Other Verified 12/08/24 21:09 Tricyclic Antidepressants AdvReac Other Verified 12/08/24 21:09 and Tricy Family History Other Diabetes Hypertension Surgical History S/P epidural steroid injection Social History household members: family Smoking Status: Current every day smoker tobacco type: cigarettes and e-cigarettes alcohol intake: never substance use type: does not use ROS <YASMANY Helton - Last Filed: 12/08/24 15:56> ROS ED Constitutional Constitutional ED: Denies chills or fever(s) Cardiovascular Cardiovascular: Reports chest pain Respiratory/Chest Respiratory/Chest: Reports dyspnea, dyspnea on exertion and tachypnea; Denies cough or wheezing Gastrointestinal Gastrointestinal: Denies abdominal pain, nausea or vomiting Integumentary Denies rash Neurologic Neurologic: Denies weakness EXAM <YASMANY Helton - Last Filed: 12/08/24 15:56> Physical Exam Const Vital Signs: 12/08/24 11:59 12/08/24 12:22 12/08/24 12:40 Temperature 97.8 F Temperature Source Oral Pulse Rate 108 H 103 H Respiratory Rate 30 H Respiratory Effort Labored Respiratory Depth Deep Respiratory Pattern Grunting Blood Pressure 177/113 H Blood Pressure Mean 134 Pulse Ox 96 97 Oxygen Delivery Method Room Air Room Air Room Air Fraction of Inspired Oxygen (FIO2) 12/08/24 12:40 12/08/24 13:00 12/08/24 14:07 Temperature 97.9 F 97.7 F L Temperature Source Oral Temporal Pulse Rate 101 H 102 H Respiratory Rate 18 24 H Respiratory Effort Respiratory Depth Respiratory Pattern Blood Pressure 161/116 H 158/114 H Blood Pressure Mean 131 128 Pulse Ox 97 96 96 Oxygen Delivery Method Room Air Room Air Room Air Fraction of Inspired Oxygen (FIO2) 12/08/24 14:20 12/08/24 15:25 Temperature Temperature Source Pulse Rate Respiratory Rate Respiratory Effort Respiratory Depth Respiratory Pattern Blood Pressure Blood Pressure Mean Pulse Ox Oxygen Delivery Method Room Air Fraction of Inspired Oxygen (FIO2) 21 Positive well nourished, well developed and no apparent distress General Appearance ED: well developed HEENT Reports normocephalic and head/scalp atraumatic Mouth ED: Yes moist mucous membranes normal Eyes PERRL and EOMs intact bilaterally Neck full ROM and supple Chest Wall inspection of chest normal Resp Resp Narrative: Slight tachypnea, decreased air movement bilaterally. Cardio regular rhythm Rate: tachycardic GI soft to palpation, non-tender, non-distended and no masses Back/Spine normal ROM and normal to inspection Extremity normal to inspection and full ROM Neuro oriented x3, CN's II-XII intact bilaterally, moves all extremities, no focal motor deficits and no sensory deficits noted Sensorium / Orientation: awake and alert Psych mental status grossly normal and thought process normal Skin no rashes or lesions noted and no wounds <Dr. Shelbie Guaman, DO - Last Filed: 12/12/24 22:41> Physical Exam Const Vital Signs: 12/08/24 11:59 12/08/24 12:22 12/08/24 12:40 Temperature 97.8 F Temperature Source Oral Pulse Rate 108 H 103 H Respiratory Rate 30 H Respiratory Effort Labored Respiratory Depth Deep Respiratory Pattern Grunting Blood Pressure 177/113 H Blood Pressure Mean 134 Pulse Ox 96 97 Oxygen Delivery Method Room Air Room Air Room Air Fraction of Inspired Oxygen (FIO2) 12/08/24 12:40 12/08/24 13:00 12/08/24 14:07 Temperature 97.9 F 97.7 F L Temperature Source Oral Temporal Pulse Rate 101 H 102 H Respiratory Rate 18 24 H Respiratory Effort Respiratory Depth Respiratory Pattern Blood Pressure 161/116 H 158/114 H Blood Pressure Mean 131 128 Pulse Ox 97 96 96 Oxygen Delivery Method Room Air Room Air Room Air Fraction of Inspired Oxygen (FIO2) 12/08/24 14:20 12/08/24 15:25 Temperature Temperature Source Pulse Rate Respiratory Rate Respiratory Effort Respiratory Depth Respiratory Pattern Blood Pressure Blood Pressure Mean Pulse Ox Oxygen Delivery Method Room Air Fraction of Inspired Oxygen (FIO2) 21 [facility] <YASMANY Helton - Last Filed: 12/08/24 15:56> [facility] Narrative Medical decision making narrative: Patient presenting today due to concerns for bradycardia this morning at home. His heart rate has actually been elevated here, he is not bradycardic. He does have significant dyspnea that is affecting his quality of life. He is unable to ambulate further than to the bathroom from his bed without feeling profoundly short of breath. He reports that he has not showered in 3 weeks because it causes him to feel too short of breath. He just established with a PCP on Wednesday who started him on a few inhalers that have given him some relief. Nausea vomiting cardiac workup obtained today. His CBC, BMP, troponin, BNP, TSH are largely unremarkable. D-dimer negative, low suspicion for PE. Chest x-ray shows a right lower lobe opacity which may reflect atelectasis or pneumonia, or aspiration. He has not been coughing and has no leukocytosis to explain pneumonia. I did review previous results, he had a echocardiogram in August 2023 that showed an EF of 65%. He was ambulated and did not desaturate, however, his heart rate did go up to 130 bpm and he felt symptomatic. Given his significant dyspnea I do feel he would benefit from admission to the hospital with probable repeat echo. He will be given IV Lasix here. I will speak with the hospitalist and he will be admitted in stable condition. Lab Data Attestation: I reviewed the patient's lab results. Labs: Laboratory Results - last 24 hr 12/08/24 12:22 WBC 9.1 RBC 5.75 Hgb 17.2 H Hct 50.3 MCV 87.5 MCH 29.9 MCHC 34.2 RDW Std Deviation 48.0 H RDW Coeff of Penelope 15.1 H Plt Count 191 MPV 9.1 Immature Gran % (Auto) 0.600 Neut % (Auto) 69.0 Lymph % (Auto) 21.7 [facility] % (Auto) 6.1 Eos % (Auto) 1.7 Baso % (Auto) 0.9 Absolute Neuts (auto) 6.3 Absolute Lymphs (auto) 1.97 Nucleated RBC % 0 D-Dimer Quant (PE/DVT) 0.36 Sodium 136 Potassium 4.2 Chloride 103 Carbon Dioxide 19.0 L Anion Gap 14 BUN 10 Creatinine 1.01 Estim Creat Clear Calc 120.32 Est GFR (MDRD) Non-Af 83 BUN/Creatinine Ratio 9.9 L Glucose 135 H Calcium 9.4 Magnesium 2.0 Troponin T High Sens 14 NT pro BNP II 310 TSH 1.800 ABG Data ABG results: ABG 12/08/24 13:22 Specimen Type MATHEW Sample Site Not entered VBG pH 7.45 H VBG pO2 86 H VBG HCO3 24 VBG Total CO2 25 VBG O2 Sat (Calc) 97 H VBG Base Excess 0 POC Mix VBG pCO2 Pt Tmp 34.4 L O2 Delivery Device Not entered Radiography X-Ray: Read by ED Physician Diagnostic Testing: Clinical Impression(s) from Imaging Studies Chest X-Ray 12/08/24 12:41 IMPRESSION: Right lower lobe opacity may reflect atelectasis, pneumonia, and/or aspiration. No pleural effusion or pneumothorax. Mild pulmonary vascular congestion. Reading Location: [facility] EKG Initial EKG: Comments: 6. BPM, sinus bradycardia, right bundle branch block, no ST elevation <Dr. Shelbie Guaman, DO - Last Filed: 12/12/24 22:41> [facility] Lab Data Labs: Laboratory Results - last 24 hr 12/08/24 12:22 WBC 9.1 RBC 5.75 Hgb 17.2 H Hct 50.3 MCV 87.5 MCH 29.9 MCHC 34.2 RDW Std Deviation 48.0 H RDW Coeff of Penelope 15.1 H Plt Count 191 MPV 9.1 Immature Gran % (Auto) 0.600 Neut % (Auto) 69.0 Lymph % (Auto) 21.7 [facility] % (Auto) 6.1 Eos % (Auto) 1.7 Baso % (Auto) 0.9 Absolute Neuts (auto) 6.3 Absolute Lymphs (auto) 1.97 Nucleated RBC % 0 D-Dimer Quant (PE/DVT) 0.36 Sodium 136 Potassium 4.2 Chloride 103 Carbon Dioxide 19.0 L Anion Gap 14 BUN 10 Creatinine 1.01 Estim Creat Clear Calc 120.32 Est GFR (MDRD) Non-Af 83 BUN/Creatinine Ratio 9.9 L Glucose 135 H Calcium 9.4 Magnesium 2.0 Troponin T High Sens 14 NT pro BNP II 310 TSH 1.800 ABG Data ABG results: ABG 12/08/24 13:22 Specimen Type MATHEW Sample Site Not entered VBG pH 7.45 H VBG pO2 86 H VBG HCO3 24 VBG Total CO2 25 VBG O2 Sat (Calc) 97 H VBG Base Excess 0 POC Mix VBG pCO2 Pt Tmp 34.4 L O2 Delivery Device Not entered Radiography Diagnostic Testing: Clinical Impression(s) from Imaging Studies Chest X-Ray 12/08/24 12:41 IMPRESSION: Right lower lobe opacity may reflect atelectasis, pneumonia, and/or aspiration. No pleural effusion or pneumothorax. Mild pulmonary vascular congestion. Reading Location: [facility] EKG Initial EKG: Comments: 6. BPM, sinus tachycardia, right bundle branch block, no ST elevation Management Discussion w/another healthcare provider: Hospitalist Treatment and Re-Evaluation :: I have personally performed a face to face assessment of the patient and have reviewed the MEGGAN Note. I performed a substantive portion of the visit including all aspects of the following. My rojas findings include: History is patient is a 64-year-old male with history of COPD. Presenting with progressive dyspnea on exertion over the past year. He states he can barely walk to the kitchen and back without getting very short of breath and having immediately put his CPAP back on. He states this started rather suddenly about a year ago and he has put himself on bed rest. He states he does not trust the medical system as a whole and therefore has not really seen anyone for this. He is not hypoxic in the emergency room. Vital signs significant for tachycardia and hypertension as well as tachypnea. Patient does note that he recently saw his primary care doctor was started on 2 inhalers which have been helping some. Differential includes COPD exacerbation, decompensated heart failure, arrhythmia, electrolyte abnormality, thyroid abnormality and symptomatic anemia. Low suspicion for infection given how long this has been going on and he is afebrile. Patient has pursed lip breathing but no conversational dyspnea. Diminished breath sounds at the bases. Is given a DuoNeb with no significant improvement symptomatically. Heart tachycardic no murmur. Regular rhythm. No peripheral edema. No JVD present. Moist mucosal membranes. Chest x-ray reviewed by my self, 2 views does not show any large pleural effusion, pneumothorax or Significant infiltrate. Radiology interpretation reads as right lower lobe opacity which could be atelectasis, pneumonia and/or aspiration with mild pulmonary vascular congestion. Given that symptoms going on for a year he is afebrile and no leukocytosis I have a low suspicion for pneumonia at this time. BNP was normal. High-sensitivity troponin normal not consistent with ACS. EKG shows sinus tachycardia with bifascicular block. No acute ischemia. Patient is ambulated and is quite symptomatic, becomes tachycardic into the 130s. Is placed on BiPAP for his comfort however VBG is more consistent with a respiratory alkalosis,, possibly from anxiety. Given is largely untreated state and severity of symptoms he is amenable to admission. Discussed at this time the exact cause of his symptoms is not clear however deconditioning, heart failure exacerbation and COPD exacerbation are still on the differential. Case discussed with hospitalist, Dr. Edmondson, for admission. Other additions or changes: [None] Discharge Plan Dx/Rx/DC Orders Clinical Impression: Dyspnea, Tobacco abuse, Chronic chest pain Disposition Disposition: Acute Care Hospital [facility] Discharge Date/Time: 12/08/24 16:31
[2024-12-08 12:50] LABS: Absolute Lymphocyte Count 1.97 X10^3/uL (0.83-4.51); Absolute Neutrophil Count 6.3 X10^3/uL (2.0-7.7); Basophil# 0.08 X10^3/uL; Basophil% 0.9 % (0-1); Eosinophil# 0.15 X10^3/uL; Eosinophils% 1.7 % (0-5); Hematocrit 50.3 % (40-54); Hemoglobin 17.2 g/dL (13.0-16.5); Lymphocyte # 1.97 X10^3/ul (0.83-4.51); Lymphocyte % 21.7 % (19-41); Mean Corp Hgb Conc 34.2 g/dL (32-36); Mean Corpuscular Hgb 29.9 pg (27.0-32.0); Mean Corpuscular Volume 87.5 fL (80-94); Mean Platelet Vol. 9.1 fl (6.2-12.0); Monocyte# 0.55 X10^3/uL; Monocyte% 6.1 % (0-10); NRBC Flagged by Analyzer 0 % (0-5); Neutrophil # 6.27 X10^3/uL (2.7-7.7); Platelet Count 191 K/mm3 (150-450); RBC Distribution Width CV 15.1 % (11.6-14.6); Red Blood Count 5.75 M/mm3 (4.6-6.2); White Blood Count 9.1 K/mm3 (4.4-11.0)
[2024-12-08 13:05] LABS: D-Dimer Quantitative (DVT/PE) 0.36 FEU/ug/m (0.27-0.49)
[2024-12-08 13:25] LABS: Blood Gas Specimen Type VEN; O2 Delivery Device Not entered; SITE Not entered; VBG BASE EXCESS 0 mmol/L (-1.0-3.5); VBG Bicarbonate 24 mmol/L (22-26); VBG PO2 86 mmHg (25-40); VBG SO2 97 % (50-70); VBG TCO2 25 mmol/L (23-33); VBG pCO2 34.4 mmHg (41-51); VBG pH 7.45 (7.32-7.42)
[2024-12-08 13:28] LABS: Pro- Brain NATRIURETIC PEPTIDE 310 pg/mL (<=900); Troponin T High Sensitivity 14 ng/L (<=22)
[2024-12-08 13:29] LABS: Anion Gap 14 (5-15); BUN 10 mg/dL (4-19); BUN/Creat Ratio 9.9 RATIO (10-20); Calcium,Total 9.4 mg/dL (7.6-11.0); Chloride 103 mmol/L (98-108); Creatinine, Serum 1.01 mg/dL (0.70-1.20); EST Glomerular Filtration Rate 83 (>60); Estimated Creatinine Clearance 120.32 ml/min (50-250); Glucose 135 mg/dL (70-99); Potassium 4.2 mmol/L (3.3-5.1); Sodium Level 136 mmol/L (133-145)
[2024-12-08] MEDS: Ipratropium/Albuterol Sulfate 3 ML AMPUL.NEB INHALATION (14:20)
--- NOTE | 2024-12-08 15:19 | HP.PCM.HOS_ITS ---
[facility] - General General Date of Admission: 12/08/24 Date of Service: 12/08/24 Chief Complaint: shortness of breath HPI Narrative MARCEL TURCIOS, is a 64 M with a PMH as outlined who presents via the ED with a complaint of shortness of breath and palpitations. HE has been getting progressively short of breath. He said the shortness of breath had been going on for about a year and had gradually been worsening. He had assisted orthopnea and wheezing but denied any PND. Patient says he smokes about 4 packs of cigarettes a day and has done so since he was about 11 years old. He has not seen a doctor for at least 15 years and says he is on BiPAP but has not follow- up with any doctor for this. He denies any cough, chest pain, palpitations, dizziness, nausea, vomiting or any other symptoms. He does have a history of heavy smoking and denies any history of PE. Review of systems is otherwise negative. His son and daughter were present by his bedside. Vitals in the ED where temperature of 97.7 Fahrenheit, pulse rate of 102 Fahrenheit, blood pressure of 158/114 respirate rate of 24. He was saturating at 96% on room air. CBC showed hemoglobin of 17.2 with WBC of 9.1 and platelets of 191. Chemistry showed sodium of 136 with potassium of 4.2 and bicarb of 19. Anion gap is 14. Creatinine is 1.01. TSH is 1.8. Chest x-ray shows right lower lobe opacity with well-preserved atelectasis, pneumonia and/or aspiration with no evidence of pleural effusion or pneumothorax and mild pulmonary vascular congestion. He is being admitted to be managed for hypoxia likely due to COPD exacerbation and probable heart failure. A CT of the chest was ordered but patient refused due to history of iodine contrast allergy. CT of the chest without contrast was therefore ordered. [facility] Medical History PTSD (post-traumatic stress disorder) Foraminal stenosis of lumbosacral region ZAN (obstructive sleep apnea) Back pain Anxiety COPD (chronic obstructive pulmonary disease) Radiculitis of leg Lumbar canal stenosis Foraminal stenosis of lumbosacral region Back pain Anxiety COPD (chronic obstructive pulmonary disease) Obstructive sleep apnea Home Medications ?Medication ?Instructions ?Recorded ?Last Taken ?Type metoprolol succinate 50 mg 50 mg PO DAILY #30 tabs Unknown Rx tablet,extended release 24 hr Allergy/AdvReac Type Severity Reaction Status Date / Time codeine Allergy Hives Verified 12/08/24 16:13 Iodinated Contrast Media Allergy Hives Verified 12/08/24 16:13 (Iodinated Contrast Media - IV Dye) diclofenac AdvReac Swelling Verified 12/08/24 16:13 metaxalone AdvReac Swelling Verified 12/08/24 16:13 methylphenidate (From AdvReac hallucinati Verified 12/08/24 16:13 Ritalin) ons Phenylpiperazine AdvReac Other Verified 12/08/24 16:13 Antidepressant Tetracyclic Antidepressants AdvReac Other Verified 12/08/24 16:13 Tricyclic Antidepressants AdvReac Other Verified 12/08/24 16:13 and Tricy Surgical History S/P epidural steroid injection Social History Smoking Status: Current every day smoker tobacco type: cigarettes ROS Constitutional Constitutional: Reports fatigue, malaise and weakness; Denies anorexia, chills or fever(s) Eyes Eyes: Denies change in vision ENT HEENT: Denies dysphagia, headache(s) or sore throat Cardiovascular Cardiovascular: Reports dyspnea on exertion and orthopnea; Denies chest pain, edema, lightheadedness, palpitations, paroxysmal nocturnal dyspnea or rapid heart rate Respiratory/Chest Respiratory/Chest: Reports dyspnea, shortness of breath at rest, shortness of breath with exertion and wheezing; Denies cough, hemoptysis or productive cough Gastrointestinal Gastrointestinal: Denies abdominal pain, constipation, nausea or vomiting Genitourinary Genitourinary: Denies dysuria Neurologic Neurologic: Denies confusion, dizziness, focal weakness, headache(s) or numbness Psychiatric Psychiatric: Denies anxiety or depression Vital Signs Vital Signs Vital Signs: 12/08/24 11:59 12/08/24 12:22 12/08/24 12:40 Temperature 97.8 F Temperature Source Oral Pulse Rate 108 H 103 H Respiratory Rate 30 H Respiratory Effort Labored Respiratory Depth Deep Respiratory Pattern Grunting Blood Pressure 177/113 H Blood Pressure Mean 134 Pulse Ox 96 97 Oxygen Delivery Method Room Air Room Air Room Air 12/08/24 12:40 12/08/24 13:00 12/08/24 14:07 Temperature 97.9 F 97.7 F L Temperature Source Oral Temporal Pulse Rate 101 H 102 H Respiratory Rate 18 24 H Respiratory Effort Respiratory Depth Respiratory Pattern Blood Pressure 161/116 H 158/114 H Blood Pressure Mean 131 128 Pulse Ox 97 96 96 Oxygen Delivery Method Room Air Room Air Room Air 12/08/24 14:20 Temperature Temperature Source Pulse Rate Respiratory Rate Respiratory Effort Respiratory Depth Respiratory Pattern Blood Pressure Blood Pressure Mean Pulse Ox Oxygen Delivery Method Room Air Weight Weight: 378 lb 12.066 oz Body Mass Index (BMI) 49.9 Physical Exam Const alert and oriented x3 Constitutional Narrative: class III obesity with BMI of 50, anxious General Appearance: cooperative HEENT head/scalp atraumatic, moist oral mucous membranes and oropharynx normal Mouth: oral and palatal mucosa normal Resp Resp Narrative: Patient has severe expiratory wheezing, tachypneic, bilateral wheezing in all lung saucedo. On 2 L of oxygen by nasal cannula. Cardio Cardio Narrative: Tachycardic was initially normal sinus rhythm but subsequently went into A-fib with RVR. GI GI Narrative: morbidly obese abdomen, difficult to appreciate any organomegaly, nontender Extremity normal to inspection, full ROM and no clubbing, cyanosis or edema Neuro oriented x3, moves all extremities and no focal motor deficits Sensorium / Orientation: awake and alert Motor Exam: strength 5/5 throughout Psych Mood & Affect: anxious Results Lab / Micro Data 12/08/24 12:22 12/08/24 12:22 Labs: Laboratory Results - last 24 hr 12/08/24 12:22: WBC 9.1, RBC 5.75, Hgb 17.2 H, Hct 50.3, MCV 87.5, MCH 29.9, MCHC 34.2, RDW Std Deviation 48.0 H, RDW Coeff of Penelope 15.1 H, Plt Count 191, MPV 9.1, Immature Gran % (Auto) 0.600, Neut % (Auto) 69.0, Lymph % (Auto) 21.7, [place] % (Auto) 6.1, Eos % (Auto) 1.7, Baso % (Auto) 0.9, Absolute Neuts (auto) 6.3, Absolute Lymphs (auto) 1.97, Nucleated RBC % 0, D-Dimer Quant (PE/DVT) 0.36, Sodium 136, Potassium 4.2, Chloride 103, Carbon Dioxide 19.0 L, Anion Gap 14, BUN 10, Creatinine 1.01, Estim Creat Clear Calc 120.32, Est GFR (MDRD) Non-Af 83, BUN/Creatinine Ratio 9.9 L, Glucose 135 H, Calcium 9.4, Magnesium 2.0, Troponin T High Sens 14, NT pro BNP II 310, TSH 1.800 ABG Data ABG results: ABG 12/08/24 13:22 Specimen Type MATHEW Sample Site Not entered VBG pH 7.45 H VBG pO2 86 H VBG HCO3 24 VBG Total CO2 25 VBG O2 Sat (Calc) 97 H VBG Base Excess 0 POC Mix VBG pCO2 Pt Tmp 34.4 L O2 Delivery Device Not entered Imaging Radiology Impression Chest X-Ray 12/08/24 12:41 IMPRESSION: Right lower lobe opacity may reflect atelectasis, pneumonia, and/or aspiration. No pleural effusion or pneumothorax. Mild pulmonary vascular congestion. Reading Location: [facility] Assessment & Plan Assessment/Plan (1) COPD exacerbation: (2) Acute respiratory failure with hypoxia: PLAN: Plan #Hypoxia likely due to COPD exacerbation and probable heart failure exacerbation * Admit to PCU. Patient was started cardiac and was also audibly wheezing. He was breathing through pursed lips throughout. * Shortness of breath has been going on for over a year and has gradually been worsening. * Chest x-ray showed right lower lobe opacity which may represent atelectasis, pneumonia and/or aspiration with no pleural effusion or pneumothorax and mild pulmonary vascular congestion. * Start patient on breathing treatments bronchodilators. IV Solu-Medrol 40 mg every 8. Also diuresed with IV Lasix 40 mg twice daily. * 2D echo ordered. Titrate oxygen to maintain saturation above 90%. * Patient had a Zio patch in position and says this was ordered by his PCP about a week ago went to bed for 7 days and today was a 7-day. Patient counseled that this could be analyzed in the hospital to see what the rhythm was. * CT of the chest without contrast was done and read was pending. * #A-fib with RVR * Patient developed A-fib with RVR when he got on the floor with his heart rate going up to the 170s and 180s. Blood pressure was also markedly elevated. * Patient was started on therapeutic Lovenox and started on Cardizem bolus and Cardizem drip. Cardiology was therefore consulted. * 2D echo ordered. * #History of depression and PTSD: Not on any medications. Follow-up with his PCP for this #History of nicotine dependence: * Patient smokes 4 packs of cigarettes a day and has done so since he was 11 years. Patient strongly counseled to quit. * Nicotine patch daily as needed. #DVT prophylaxis: Started on therapeutic Lovenox on account of A-fib with RVR CODE STATUS: DNR CCA no intubation * Patient, daughter and son counseled extensively about different types of CODE STATUS including full code, DNR CCA and DNR CCA. * Patient elects to be DNRCCA no intubation. * Total [id number] time 16 minutes. * * Patient upon admission to the floor and commencement of Cardizem drip decided to sign out AGAINST MEDICAL ADVICE. Despite counseling about the need for the Cardizem drip and counseling from his family, patient was adamant and signed AMA papers. Patient therefore left AGAINST MEDICAL ADVICE on 12/08/2024 after he arrived on the medical floor. This notes therefore serves as same-day admit H&P and discharge summary. Charges/Coding Visit Charges Inpatient E&M: 76337 Init Hosp L3 ([place] [address]) Procedures Hospitalists Procedures: 36012 Advncd Care Plan 30 Min
--- NOTE | 2024-12-08 15:40 | CPS ---
Patient placed on BiPAP, large leak noted d/t potter. Patient unable to tolerate mask. Patient contacted a family member, who is bringing his home unit. RN and PA, Tracy lebron.
[2024-12-08] MEDS: Furosemide 40 MG/4 ML Vial IV (16:23)
--- NOTE | 2024-12-08 16:30 | ED.RN ---
PT REMOVED HIS OWN IV, 18 RAC, BECAUSE HE SAID HE WA GOING HOME THIS NURSE PLACED A 20 IN THE RAC ABOVE D/C IV IN ORDER TO MEDICATE PT, GET THE 2ND TROP, AND GET PT UP TO THE FLOOR FOR ADMISSION
[2024-12-08 17:00] LABS: Troponin T High Sens 2 HR 18 ng/L (<=22)
== END 2024-12-08 18:23 | disposition home or self-care (01) | DRG 189 ==
LOC: ED 15:56 → PCU 16:01
PROVIDERS: Physician Assistant; Admitting Provider Student in an Organized Health Care Education/Training Program; Emergency Provider Emergency Medicine; PCP Family Medicine; Referring Provider Student in an Organized Health Care Education/Training Program; Visit Provider Student in an Organized Health Care Education/Training Program
DX: J96.01 Acute respiratory failure with hypoxia (principal); Z68.43 Body mass index [BMI] 50.0-59.9, adult; J44.1 Chronic obstructive pulmonary disease with (acute) exacerbation; Z66 Do not resuscitate; I50.9 Heart failure, unspecified; I48.91 Unspecified atrial fibrillation; F17.210 Nicotine dependence, cigarettes, uncomplicated; G47.33 Obstructive sleep apnea (adult) (pediatric); F17.290 Nicotine dependence, other tobacco product, uncomplicated; E66.813 Obesity, class 3; R07.9 Chest pain, unspecified; Z53.29 Procedure and treatment not carried out because of patient's decision for other reasons; R00.0 Tachycardia, unspecified; G89.29 Other chronic pain; Z91.041 Radiographic dye allergy status
CPT/HCPCS: 36415; 71046; 80048; 80053; 82465; 82803; 83718; 83735; 83880; 84443; 84484; 85025; 85379; 93005; 94002; 94640; 99285; A4216; J1938

== ENCOUNTER 2024-12-08 21:07 | Inpatient (IN) | payer MEDICARE, SELFPAY ==
[2024-12-08] VITALS (7 sets, daily range): BP systolic 102–183; BP diastolic 63–162; PULSE 83–180; RESP 20–38; TEMP 36.6–37.1; O2SAT 90–98; BMI 49.6
[2024-12-08] MEDS: dilTIAZem 25 MG/5 ML Vial IV BOLUS (21:28)
[2024-12-08] MEDS: Ondansetron 4 MG/2 ML Vial IV (21:28)
--- OUTSIDE RECORDS SUMMARY | 2024-12-08 21:32 | XMS RPT_ITS | CCD ---
Author Organization [facility] CliniSyid Care Team Providers Care Webbing Tacker Name Role Phone KENA, CECILIA T Unavailable Unavailable KENA, CECILIA T Unavailable Unavailable KENA, CECILIA T Unavailable Unavailable KENA, CECILIA T Unavailable Unavailable Care Physician, No Primary Primary Care Provider Unavailable Dr. Clark Lerma Attending Provider Dr. Bertram Yi Emergency Provider Dr. Rod Castellanos Admit Provider [phone] Dr. Rod Castellanos Other Provider [phone] Dr. Clark Lerma Other Provider Dr. Jose David Majano Other Provider Dr. Jose David Majano Attending Provider Care Physician, No Primary Primary Care Unava ilable Clark Lerma Attending Unavailable Care Physician, No Primary Primary Care Unava ilable Rod Castellanos Attending Unavailable Rod Castellanos Admitting Unavailable Florentin, Clark Consulting Unavailable Rod Castellanos Consulting Unavailable Florentin, Clark Attending Unavailable Jose David Majano Consulting Unavailable Care Physician, No Primary Primary Care Unava ilable Florentin, Clark Consulting Unavailable Rod Castellanos Admitting Unavailable Jose David Majano Attending Unavailable Rod Castellanos Consulting Unavailable Jose David Majano Attending Unavailable Dr. Jose David Sims MD Primary Care Provider Dr. Jose David Sims MD Attending Provider [phone] Dr. Jose David Sims MD Referring Provider [phone] Dr. Shelbie Guaman DO Emergency Provider Delvis MAGANA, Dr. Mis Cartagena Admit Provider Delvis MAGANA, Dr. Mis Cartagena Attending Provider Delvis MAGANA, Dr. Mis Cartagena Referring Provider Rajni MAGANA, Dr. Molina Other Provider Unavailable Allergies Allergy Classification Reported Allergen(s) Allergy Type Date of Onset Reaction(s) Facility (6 sources) codeine; Translations: [CODEINE] Drug Allergy 04-29-20 AO, [facility] Repository (1 source) iodine; Translations: [IODINE] Drug Allergy 04-29-20 [facility] Repository (6 sources) methylphenidate; Translations: [METHYLPHENIDATE] Drug Allergy 11-22-19 16 AO, hallucinations [facility] Repository Comment on above: hallucinations (1 source) TRICYCLIC COMPOUNDS; Translations: [TRICYCLIC COMPOUNDS] Propensity to adverse reactions to drug (disorder) 04-23-20 [facility] Repository (4 sources) Diclofenac Drug Allergy 09-15-19 Swelling [facility] (4 sources) metaxalone Drug Allergy 09-15-19 Swelling [facility] (4 sources) traZODone Drug Allergy 09-15-19 Other [facility] Comment on above: catatonic state (4 sources) Triiodobenzoic Acids Allergy to substance 09-15-19 [facility] (4 sources) Tetracyclic Antidepressants Propensity to adverse reactions 09-15-19 [facility] Comment on above: catatonic state (4 sources) Tricyclic Antidepressants and Tricy Propensity to adverse reactions 09-15-19 [facility] Comment on above: catatonic state (1 source) Diclofenac Drug Allergy 09-15-19 [facility] Repository (1 source) metaxalone Drug Allergy 09-15-19 [facility] Repository (1 source) Iodinated Contrast Media Drug allergy (disorder) 09-15-19 [facility] Repository (1 source) Tricyclic Antidepressants and Tricy Drug allergy (disorder) 09-15-19 [facility] Repository (1 source) Tetracyclic Antidepressants Drug allergy (disorder) 09-15-19 [facility] Repository (1 source) Phenylpiperazine Antidepressant Drug allergy (disorder) 09-15-19 [facility] Repository Medications Current Medications Medication Drug Class(es) Dates Sig (Normalized) Sig (Original) 24 hr metoprolol succinate 50 mg extended release oral tablet (3 sources) beta-Adrenergic Ortega Start: 09-16-2023 take 1 tablet by mouth once daily Metoprolol Succinate 50 mg Tablet Extended Release 24 Hr Active 50 mg PO DAILY September 16, 2023 12:00am Tye (Nk) (1 source) Start: 09-15-2023 Tye (Nk) Active September 15, 2023 12:00am Completed/Discontinued Medications Medication Drug Class(es) Dates Sig (Normalized) Sig (Original) acetaminophen 325 mg / oxyCODONE hydrochloride 5 mg oral tablet (4 sources) Opioid Agonist Start: 09-08-2019 End: 09-11-2019 Oxycodone-Acetamino phen 1 TABLET tablet Discontinued 1 {tbl} PO EVERY 6 HOURS NEEDED as needed for Pain 12 September 08, 2019 September 10, 2019 12:00am September 11, 2019 12:08am Start: 09-08-2019 End: 09-11-2019 take 1 tablet by mouth every six hours as needed Oxycodone-Acetaminophen Discontinued 1 TABLET PO EVERY 6 HOURS NEEDED 12 September 08, 2019 September 11, 2019 12:08am naproxen sodium 220 mg oral tablet (4 sources) Nonsteroidal Anti-inflammatory Drug Start: 03-06-2019 End: 03-08-2019 take 1 tablet by mouth twice daily as needed for pain Naproxen Sodium 220 MG tablet Discontinued 220 mg PO TWICE DAILY NEEDED as needed for back pain March 06, 2019 12:00am March 08, 2019 4:36pm oxyCODONE hydrochloride 5 mg oral tablet (8 sources) Opioid Agonist Start: 08-28-2019 End: 08-29-2019 take 1 tablet by mouth every six hours as needed for pain Oxycodone 5 MG tablet Discontinued 5 mg PO EVERY 6 HOURS NEEDED as needed for Pain Score 4-10/10 20 August 28, 2019 August 28, 2019 1:00am August 29, 2019 1:09am Start: 07-17-2019 End: 07-22-2019 take 1 tablet by mouth every eight hours as needed for pain Oxycodone 5 MG tablet Discontinued 5 mg PO EVERY 8 HOURS NEEDED as needed for Pain Score 6-10/10 14 5 July 17, 2019 July 21, 2019 1:00am July 22, 2019 1:08am predniSONE 20 mg oral tablet (4 sources) Start: 05-20-2020 End: 09-15-2023 take 2 tablets by mouth once daily at mealtime Prednisone 20 MG tablet Discontinued 40 mg PO DAILY May 20, 2020 1:00am September 15, 2023 1:25pm With food Start: 05-20-2020 End: 09-15-2023 take 40 mg by mouth once daily at mealtime Prednisone Discontinued 40 MG PO DAILY May 20, 2020 1:00am September 15, 2023 1:25pm With food traMADol hydrochloride 50 mg oral tablet (4 sources) Opioid Agonist Start: 03-08-2019 End: 03-18-2019 take 1 tablet by mouth every six hours as needed for pain Tramadol 50 MG tablet Discontinued 50 mg PO EVERY 6 HOURS NEEDED as needed for Pain 22 01March 08, 2019 12:00am March 14, 2019 12:00am March 18, 2019 12:09am Problems Active Problems Problem Classification Problem Date Documented Da te Episodic/Chronic Abdominal pain (4 sources) Chronic abdominal pain; Translations: [Unspecified abdominal pain] 03-03-2019 Episodic Allergic reactions (4 sources) Allergic reaction; Translations: [Allergy, unspecified, initial encounter] 05-21-2020 Episodic Anxiety disorders (4 sources) Anxiety; Translations: [Anxiety disorder, unspecified] 03-02-2019 Chronic Cardiac dysrhythmias (9 sources) Atrial arrhythmia; Translations: [Unspecified atrial fibrillation] Onset: 09-22-2023 09-15-2023 Chronic Chronic obstructive pulmonary disease and bronchiectasis (4 sources) Chronic obstructive lung disease; Translations: [Chronic obstructive pulmonary disease, unspecified] 03-06-2019 Chronic Genitourinary symptoms and ill-defined conditions (4 sources) Urinary incontinence; Translations: [Unspecified urinary incontinence] 03-03-2019 Chronic Malaise and fatigue (7 sources) Asthenia; Translations: [Weakness] Onset: 09-22-2023 09-15-2023 Episodic Nonspecific chest pain (6 sources) Chest pain; Translations: [Chest pain, unspecified] 03-08-2019 Episodic Other lower respiratory disease (2 sources) Dyspnea; Translations: [Dyspnea, unspecified] 12-08-2024 Episodic Other nervous system disorders (4 sources) Paresthesia of hand ; Translations: [Paresthesia of skin] 07-16-2019 Episodic Residual codes; unclassified (4 sources) Obstructive sleep apnea syndrome; Translations: [Obstructive sleep apnea (adult) (pediatric)] 09-15-2023 Chronic Residual codes; unclassified (2 sources) Obstructive sleep apnea (adult) (pediatric); Translations: [Obstructive sleep apnea (adult)(pediatric)] 09-15-2023 Chronic Residual codes; unclassified (4 sources) H/O: steroid therapy; Translations: [Personal history of systemic steroid therapy] 08-28-2019 Episodic Residual codes; unclassified (2 sources) Tobacco user; Translations: [Tobacco use] 12-08-2024 Episodic Spondylosis; intervertebral disc disorders; other back problems (20 sources) Lumbosacral stenosis; Translations: [Spinal stenosis, lumbosacral region] 07-16-2019 Episodic Past or Other Problems Problem Classification Problem Date Documented Da te Episodic/Chronic Abdominal hernia (1 source) Incisional hernia without obstruction or gangrene; Translations: [Incisional hernia without obstruction or gangrene] Onset: 05-26-2017 Episodic Unclassified (1 source) Encounter for screening for malignant neoplasm of colon; Translations: [Encounter for screening for malignant neoplasm of colon] Onset: 04-26-2017 Episodic Results Test Name Value Interpretation Reference Range Facility Absolute lymphocyte countOrd ered By: Martha Mead on 12-08-2024 Lymphocytes Auto (Unsp spec) [#/Vol] 1.97 10*3/uL 0.83-4.51 [facility] Absolute neutrophil countOrd ered By: Martha Mead on 12-08-2024 Neutrophils (Bld) [#/Vol] 6.3 10*3/uL 2.0-7.7 [facility] Anion gap in Serum or Plasma Ordered By: Martha Mead on 12-08-2024 Anion gap [Moles/Vol] 14 mmol/L 5-15 [facility] Automated lymphocyte count a s percentage of total leukocytesOrdered By: Martha Mead on 12-08-2024 Lymphocytes/100 WBC Auto (Unsp spec) 21.7 % 19-41 [facility] BUN/creatinine ratioOrdered By: Martha Mead on 12-08-2024 Urea nitrogen/Creatinine [Mass ratio] 9.9 mg/mg Low 10-20 [facility] Basophil percentageOrdered B y: Martha Mead on 12-08-2024 Basophils/100 WBC (Bld) 0.9 % 0-1 [facility] CO2 (BldV) [Moles/Vol]Ordere d By: Shelbie Guaman on 12-08-2024 CO2 [Moles/Vol] 25 mmol/L 23-33 [facility] Carbon dioxide, total [Moles /volume] in Central venous bloodOrdered By: Martha Mead on 12-08-2024 CO2 [Moles/Vol] 19.0 mmol/L Low 21.0-32.0 [facility] Chloride assayOrdered By: Ros Mead on 12-08-2024 Chloride [Moles/Vol] 103 mmol/L 98-108 [facility] Eosinophil percentageOrdered By: Martha Mead on 12-08-2024 Eosinophils/100 WBC (Bld) 1.7 % 0-5 [facility] Erythrocyte distribution wid th ratioOrdered By: Martha Mead on 12-08-2024 Erythrocyte distribution width (RBC) [Ratio] 15.1 % High 11.6-14.6 [facility] Erythrocyte distribution wid th standard deviationOrdered By: Martha Mead on 12-08-2024 Erythrocyte distribution width (RBC) [Ratio] 48.0 fl High 35.1-43.9 [facility] Glomerular filtration rate ( GFR) estimation/1.73 sq m using serum, plasma, or whole bOrdered By: Martha Mead on 12-08-2024 GFR/1.73 sq M.predicted among non-blacks MDRD (S/P/Bld) [Vol rate/Area] 83 mL/min/{1.73_m2} >60 [facility] Comment on above: mL/min/1.73m2 CKD-EP I Creatinine Equation (2020) Hematocrit Auto (Bld) [Volum e fraction]Ordered By: Martha Mead on 12-08-2024 Hematocrit (Bld) [Volume fraction] 50.3 % 40-54 [facility] Hemoglobin measurementOrdere d By: Martha Mead on 12-08-2024 Hemoglobin (Bld) [Mass/Vol] 17.2 g/dL High 13.0-16.5 [facility] Immature granulocytes/100 WB C Auto (Bld)Ordered By: Martha Mead on 12-08-2024 Immature granulocytes/100 WBC (Bld) 0.600 % 0.0-0.9 [facility] Comment on above: IG% - Immature Granu locytes (promyelocytes, myelocytes and metamyelocytes) > 1% indicates that a LEFT SHIFT is Present. MCV (mean corpuscular volume ) determinationOrdered By: Martha Mead on 12-08-2024 MCV (RBC) [Entitic vol] 87.5 fL 80-94 [facility] Magnesium measurement (mass/ volume)Ordered By: Martha Mead on 12-08-2024 Magnesium (Unsp spec) [Mass/Vol] 2.0 mg/dL 1.5-2.2 [facility] Mean corpuscular hemoglobin (MCH) determinationOrdered By: Martha Mead on 12-08-2024 MCH (RBC) [Entitic mass] 29.9 pg 27.0-32.0 [facility] Mean corpuscular hemoglobin concentration (MCHC) determinationOrdered By: Martha Mead on 12-08-2024 MCHC (RBC) [Mass/Vol] 34.2 g/dL 32-36 [facility] Mean platelet volume determi nationOrdered By: Martha Mead on 12-08-2024 Platelet mean volume (Bld) [Entitic vol] 9.1 fL 6.2-12.0 [facility] Monocyte percentageOrdered B y: Martha Mead on 12-08-2024 Monocytes/100 WBC (Bld) 6.1 % 0-10 [facility] Natriuretic peptide.B prohor hector N-Terminal [Mass/volume] in Serum or PlasmaOrdered By: Martha Mead on 12-08-2024 Natriuretic peptide.B prohormone N-Terminal [Mass/Vol] 310 pg/mL <900 [facility] Comment on above: Heart Failure Unlike ly: < 300 pg/mLHeart Failure Likely< 50 Years: > 450 pg/mL50-75 Years: > 900 pg/mL>75 Years: > 1800 pg/mL Neutrophil percentageOrdered By: Martha Mead on 12-08-2024 Neutrophils/100 WBC (Bld) 69.0 % 47-70 [facility] No Panel InformationOrdered By: Shelbie Guaman on 12-08-2024 Blood Gas Sample Site Not entered [facility] Blood Gas Specimen Type MATHEW [facility] Oxygen Delivery Device Not entered [facility] Nucleated red blood cell per centageOrdered By: Martha Mead on 12-08-2024 Nucleated RBC/100 WBC (Bld) [Ratio] 0 % 0-5 [facility] Platelet countOrdered By: Ros Mead on 12-08-2024 Platelets (Bld) [#/Vol] 191 10*3/uL 150-450 [facility] Potassium measurement (mass/ volume)Ordered By: Martha Mead on 12-08-2024 Potassium (Unsp spec) [Mass/Vol] 4.2 mmol/L 3.3-5.1 [facility] Comment on above: Hemolysis present, R esults could be affected. RBC Auto (Bld) [#/Vol]Ordere d By: Martha Mead on 12-08-2024 RBC (Bld) [#/Vol] 5.75 10*6/uL 4.6-6.2 [facility] Serum creatinine measurement (mass/volume)Ordered By: Martha Mead on 12-08-2024 Creatinine [Mass/Vol] 1.01 mg/dL 0.70-1.20 [facility] Serum glucose measurement (m ass/volume)Ordered By: Martha Mead on 12-08-2024 Glucose [Mass/Vol] 135 mg/dL High 70-99 [facility] Serum or plasma calcium jarrod urement (mass/volume)Ordered By: Martha Mead on 12-08-2024 Calcium [Mass/Vol] 9.4 mg/dL 7.6-11.0 [facility] Serum or plasma urea nitroge n measurement (mass/volume)Ordered By: Martha Mead on 12-08-2024 Urea nitrogen [Mass/Vol] 10 mg/dL 4-19 [facility] Sodium levelOrdered By: Daniel Mead on 12-08-2024 Sodium [Moles/Vol] 136 mmol/L 133-145 [facility] TSH DL <= 0.005 mIU/L QnOrde red By: aMrtha Mead on 12-08-2024 TSH Qn 1.800 uIU/mL 0.300-4.20 0 [facility] Troponin T.cardiac [Mass/vol ume] in Serum or Plasma by High sensitivity methodOrdered By: Martha Mead on 12-08-2024 Troponin T.cardiac High sensitivity method [Mass/Vol] 18 ng/L <22 [facility] Troponin T.cardiac High sensitivity method [Mass/Vol] 14 ng/L <22 [facility] Venous blood base excess mikey surementOrdered By: Shelbie Guaman on 12-08-2024 Base excess Calc (BldV) [Moles/Vol] 0 mmol/L -1.0-3.5 [facility] Venous blood bicarbonate mikey surementOrdered By: Shelbie Guaman on 12-08-2024 HCO3 (Bld) [Moles/Vol] 24 mmol/L 22-26 [facility] Venous blood oxygen saturati on measurementOrdered By: Shelbie Guaman on 12-08-2024 Oxygen saturation in Blood 97 % High 50-70 [facility] Venous blood pH measurementO rdered By: Shelbie Guaman on 12-08-2024 pH (BldV) 7.45 [pH] High 7.32-7.42 [facility] Venous blood partial pressur e of carbon dioxide measurementOrdered By: Shelbie Guaman on 12-08-2024 CO2 (BldV) [Partial pressure] 34.4 mm[Hg] Low 41-51 [facility] Venous blood partial pressur e of oxygen measurementOrdered By: Shelbie Guaman on 12-08-2024 Oxygen (BldV) [Partial pressure] 86 mm[Hg] High 25-40 [facility] White blood cell (WBC) count Ordered By: Martha Mead on 12-08-2024 WBC (Bld) [#/Vol] 9.1 10*3/uL 4.4-11.0 [facility] Absolute lymphocyte countOrd ered By: Jose David Sims on 12-07-2024 Lymphocytes Auto (Unsp spec) [#/Vol] 2.41 10*3/uL 0.83-4.51 [facility] Absolute neutrophil countOrd ered By: Jose David Sims on 12-07-2024 Neutrophils (Bld) [#/Vol] 5.7 10*3/uL 2.0-7.7 [facility] Anion gap in Serum or Plasma Ordered By: Jose David Sims on 12-07-2024 Anion gap [Moles/Vol] 13 mmol/L 5-15 [facility] Automated lymphocyte count a s percentage of total leukocytesOrdered By: Jose David Sims on 12-07-2024 Lymphocytes/100 WBC Auto (Unsp spec) 25.7 % 19-41 [facility] BUN/creatinine ratioOrdered By: Jose David Sims on 12-07-2024 Urea nitrogen/Creatinine [Mass ratio] 10.5 mg/mg 10-20 [facility] Basophil percentageOrdered B y: Jose David Sims on 12-07-2024 Basophils/100 WBC (Bld) 1.1 % High 0-1 [facility] Bilirubin, totalOrdered By: Jose David Sims on 12-07-2024 Bilirubin [Mass/Vol] 0.49 mg/dL 0.00-1.30 [facility] Carbon dioxide, total [Moles /volume] in Central venous bloodOrdered By: Jose David Sims on 12-07-2024 CO2 [Moles/Vol] 21.2 mmol/L 21.0-32.0 [facility] Chloride assayOrdered By: Kimani Sims on 12-07-2024 Chloride [Moles/Vol] 104 mmol/L 98-108 [facility] Eosinophil percentageOrdered By: Jose David Sims on 12-07-2024 Eosinophils/100 WBC (Bld) 4.3 % 0-5 [facility] Erythrocyte distribution wid th ratioOrdered By: Jose David Sims on 12-07-2024 Erythrocyte distribution width (RBC) [Ratio] 15.1 % High 11.6-14.6 [facility] Erythrocyte distribution wid th standard deviationOrdered By: Jose David Sims on 12-07-2024 Erythrocyte distribution width (RBC) [Ratio] 49.7 fl High 35.1-43.9 [facility] Glomerular filtration rate ( GFR) estimation/1.73 sq m using serum, plasma, or whole bOrdered By: Jose David Sims on 12-07-2024 GFR/1.73 sq M.predicted among non-blacks MDRD (S/P/Bld) [Vol rate/Area] 79 mL/min/{1.73_m2} >60 [facility] Comment on above: mL/min/1.73m2 CKD-EP I Creatinine Equation (2020) Hematocrit Auto (Bld) [Volum e fraction]Ordered By: Jose David Sims on 12-07-2024 Hematocrit (Bld) [Volume fraction] 48.0 % 40-54 [facility] Hemoglobin measurementOrdere d By: Jose David Sims on 12-07-2024 Hemoglobin (Bld) [Mass/Vol] 15.8 g/dL 13.0-16.5 [facility] Immature granulocytes/100 WB C Auto (Bld)Ordered By: Jose David Sims on 12-07-2024 Immature granulocytes/100 WBC (Bld) 0.600 % 0.0-0.9 [facility] Comment on above: IG% - Immature Granu locytes (promyelocytes, myelocytes and metamyelocytes) > 1% indicates that a LEFT SHIFT is Present. Laboratory - Chemistry and C hemistry - challengeOrdered By: Jose David Sims on 12-07-2024 AST [Catalytic activity/Vol] 30 U/L <38 [facility] MCV (mean corpuscular volume ) determinationOrdered By: Jose David Sims on 12-07-2024 MCV (RBC) [Entitic vol] 90.1 fL 80-94 [facility] Magnesium measurement (mass/ volume)Ordered By: Jose David Sims on 12-07-2024 Magnesium (Unsp spec) [Mass/Vol] 2.0 mg/dL 1.5-2.2 [facility] Mean corpuscular hemoglobin (MCH) determinationOrdered By: Jose David Sims on 12-07-2024 MCH (RBC) [Entitic mass] 29.6 pg 27.0-32.0 [facility] Mean corpuscular hemoglobin concentration (MCHC) determinationOrdered By: Jose David Sims on 12-07-2024 MCHC (RBC) [Mass/Vol] 32.9 g/dL 32-36 [facility] Mean platelet volume determi nationOrdered By: Jose David Sims on 12-07-2024 Platelet mean volume (Bld) [Entitic vol] 9.2 fL 6.2-12.0 [facility] Monocyte percentageOrdered B y: Jose David Sims on 12-07-2024 Monocytes/100 WBC (Bld) 7.1 % 0-10 [facility] Neutrophil percentageOrdered By: Jose David Sims on 12-07-2024 Neutrophils/100 WBC (Bld) 61.2 % 47-70 [facility] Nucleated red blood cell per centageOrdered By: Jose David Sims on 12-07-2024 Nucleated RBC/100 WBC (Bld) [Ratio] 0 % 0-5 [facility] Platelet countOrdered By: Kimani Sims on 12-07-2024 Platelets (Bld) [#/Vol] 207 10*3/uL 150-450 [facility] Potassium measurement (mass/ volume)Ordered By: Jose David Sims on 12-07-2024 Potassium (Unsp spec) [Mass/Vol] 4.2 mmol/L 3.3-5.1 [facility] RBC Auto (Bld) [#/Vol]Ordere d By: Jose David Sims on 12-07-2024 RBC (Bld) [#/Vol] 5.33 10*6/uL 4.6-6.2 [facility] Serum creatinine measurement (mass/volume)Ordered By: Jose David Sims on 12-07-2024 Creatinine [Mass/Vol] 1.05 mg/dL 0.70-1.20 [facility] Serum globulin measurementOr dered By: Jose David Sims on 12-07-2024 Globulin (S) [Mass/Vol] 3.0 g/dL 2.2-4.2 [facility] Serum glucose measurement (m ass/volume)Ordered By: Jose David Sims on 12-07-2024 Glucose [Mass/Vol] 137 mg/dL High 70-99 [facility] Serum or plasma alanine crawford otransferase (ALT) measurementOrdered By: Jose David Sims on 12-07-2024 ALT [Catalytic activity/Vol] 44 U/L <47 [facility] Serum or plasma albumin jarrod urement (mass/volume)Ordered By: Jose David Sims on 12-07-2024 Albumin [Mass/Vol] 4.3 g/dL 3.4-4.8 [facility] Serum or plasma albumin/glob ulin mass ratioOrdered By: Jose David Sims on 12-07-2024 Albumin/Globulin [Mass ratio] 1.4 {ratio} 0.9-2.4 [facility] Serum or plasma alkaline christina sphatase measurementOrdered By: Jose David iSms on 12-07-2024 ALP [Catalytic activity/Vol] 78 U/L 40-129 [facility] Serum or plasma calcium jarrod urement (mass/volume)Ordered By: Jose David Sims on 12-07-2024 Calcium [Mass/Vol] 9.4 mg/dL 7.6-11.0 [facility] Serum or plasma cholesterol in HDL measurement (mass/volume)Ordered By: Jose David Sims on 12-07-2024 Cholesterol in HDL [Mass/Vol] 55 mg/dL >40 [facility] Comment on above: National Cholesterol Education Program (NCEP) guidelines:<40 mg/dL: Low HDL-cholesterol (major risk factor for CHD)>= 60 mg/dL: High HDL-cholesterol (negative risk factor for CHD)HDL-cholesterol is affected by a number of factors, e.g. smoking, exercise, hormones, sex and age. Serum or plasma cholesterol measurement (mass/volume)Ordered By: Jose David Sims on 12-07-2024 Cholesterol [Mass/Vol] 212 mg/dL High <201 [facility] Comment on above: Cholesterol level, D esirable <200 mg/dLBorderline high cholesterol 200-239 mg/dLHigh cholesterol >=240 mg/dLRecommendations of the NCEP Adult Treatment Panel for the following risk-cutoff thresholds for the [place] population. Serum or plasma urea nitroge n measurement (mass/volume)Ordered By: Jose David Sims on 12-07-2024 Urea nitrogen [Mass/Vol] 11 mg/dL 4-19 [facility] Sodium levelOrdered By: Jose David Sims on 12-07-2024 Sodium [Moles/Vol] 138 mmol/L 133-145 [facility] TSH DL <= 0.005 mIU/L QnOrde red By: Jose David Sims on 12-07-2024 TSH Qn 2.510 uIU/mL 0.300-4.20 0 [facility] Total proteinOrdered By: Carolyn Sims on 12-07-2024 Protein [Mass/Vol] 7.2 g/dL 5.9-8.4 [facility] [facility] White blood cell (WBC) count Ordered By: Jose David Levi on 12-07-2024 WBC (Bld) [#/Vol] 9.4 10*3/uL 4.4-11.0 [facility] Culture, Blood (WB)on 2023 CUB No growth in 5 days. Normal [facility] Comment on above: Performed By: #### M 200.1000 #### [facility] [address] [place], [address] Performed By: #### L 100.0500, L500.2500 #### [facility] [address] [place], [address] CBC W/Diff, Automatedon 08-27 PATH REV Reviewed Normal [facility] Comment on above: Result Comment: Poly cythemia Clinical correlation necessary. Saravanan Santiago M.D. 09/17/23 AMENDED REPORT 09/17/23 0927 PATH REV previously reported as: October Performed By: #### L 501.5200, L501.9520, L503.6005, L503.6620, L100.0100, L300.3900, L300.4310, L500.2500, L500.3400, L501.2450, L501.4020 #### [facility] [address] [place], [address] Basic Metabolic Profile (BMP )on 09-16-2023 BUN/CRE 25.0 RATIO High 10-20 [facility] Comment on above: Performed By: #### L 100.0500, L500.2500 #### [facility] [address] [place], [address] CA,Total 9.1 mg/dL Normal 8.5-10.1 [facility] Comment on above: Performed By: #### L 100.0500, L500.2500 #### [facility] [address] [place], [address] Chloride [Moles/Vol] 109 mmol/L High 98-107 [facility] Comment on above: Performed By: #### L 100.0500, L500.2500 #### [facility] [address] [place], [address] CO2 [Moles/Vol] 23.0 mmol/L Normal 21.0-32.0 [facility] Comment on above: Performed By: #### L 100.0500, L500.2500 #### [facility] [address] [place], [address] Creatinine [Mass/Vol] 1.04 mg/dL Normal 0.70-1.30 [facility] Comment on above: Result Comment: The validity of the calculated GFR GFRAA in patients over 70 years has not been determined. Clinical correlation is essential. Performed By: #### L 100.0500, L500.2500 #### [facility] [address] [place], [address] ECRCL 116.91 ml/min Normal [facility] Comment on above: Performed By: #### L 100.0500, L500.2500 #### [facility] [address] [place], [address] EST GFR - AA 93 mL/min Normal >60 [facility] Comment on above: Result Comment: Afri can Portuguese GFR Calc Performed By: #### L 100.0500, L500.2500 #### [facility] [address] [place], [address] GAP 6 Normal 5-15 [facility] Comment on above: Performed By: #### L 100.0500, L500.2500 #### [facility] [address] [place], [address] GFR/1.73 sq M.predicted among non-blacks MDRD (S/P/Bld) [Vol rate/Area] 77 mL/min/{1.73_m2} Normal >60 [facility] Comment on above: Result Comment: Non- GFR Calc Performed By: #### L 100.0500, L500.2500 #### [facility] [address] [place], [address] Glucose [Mass/Vol] 125 mg/dL High 74-106 [facility] Comment on above: Result Comment: Fast ing Glucose result from 100 to 125 mg/dL suggests IMPAIRED HOMEOSTASIS per A.D.A. criteria. Performed By: #### L 100.0500, L500.2500 #### [facility] [address] [place], [address] Potassium [Moles/Vol] 4.0 mmol/L Normal 3.5-5.1 [facility] Comment on above: Performed By: #### L 100.0500, L500.2500 #### [facility] [address] [place], [address] Sodium [Moles/Vol] 138 mmol/L Normal 136-145 [facility] Comment on above: Performed By: #### L 100.0500, L500.2500 #### [facility] [address] [place], [address] Urea nitrogen [Mass/Vol] 26 mg/dL High 7-18 [facility] Comment on above: Performed By: #### L 100.0500, L500.2500 #### [facility] [address] [place], [address] Basophil percentageOrdered B y: Rod Castellanos on 09-16-2023 Chloride [Moles/Vol] 109 mmol/L 98-107 [facility] Glucose [Mass/Vol] 125 mg/dL 74-106 [facility] Comment on above: Fasting Glucose resu lt from 100 to 125 mg/dL suggests IMPAIRED HOMEOSTASIS per A.D.A. criteria. Hemoglobin (Bld) [Mass/Vol] 14.5 g/dL 13.0-16.5 [facility] Potassium [Moles/Vol] 4.0 mmol/L 3.5-5.1 [facility] Sodium [Moles/Vol] 138 mmol/L 136-145 [facility] WBC (Bld) [#/Vol] 7.9 10*3/uL 4.4-11.0 [facility] CBC-Complete Blood Cnt No Shreya sanhcez 09-16-2023 Erythrocyte distribution width (RBC) [Ratio] 14.9 % High 11.6-14.6 [facility] Comment on above: Performed By: #### L 100.0500, L500.2500 #### [facility] [address] [place], [address] Hematocrit (Bld) [Volume fraction] 45.0 % Normal 40-54 [facility] Comment on above: Performed By: #### L 100.0500, L500.2500 #### [facility] [address] [place], [address] Hemoglobin (Bld) [Mass/Vol] 14.5 g/dL Normal 13.0-16.5 [facility] Comment on above: Performed By: #### L 100.0500, L500.2500 #### [facility] [address] [place], [address] MCH (RBC) [Entitic mass] 28.8 pg Normal 27.0-32.0 [facility] Comment on above: Performed By: #### L 100.0500, L500.2500 #### [facility] [address] [place], [address] MCHC (RBC) [Mass/Vol] 32.2 g/dL Normal 32-36 [facility] Comment on above: Performed By: #### L 100.0500, L500.2500 #### [facility] [address] [place], [address] MCV (RBC) [Entitic vol] 89.3 fL Normal 80-94 [facility] Comment on above: Performed By: #### L 100.0500, L500.2500 #### [facility] [address] [place], [address] Platelet mean volume (Bld) [Entitic vol] 9.4 fL Normal 6.2-12.0 [facility] Comment on above: Performed By: #### L 100.0500, L500.2500 #### [facility] [address] [place], [address] Platelets (Bld) [#/Vol] 146 10*3/uL Low 150-450 [facility] Comment on above: Performed By: #### L 100.0500, L500.2500 #### [facility] [address] [place], [address] RBC (Bld) [#/Vol] 5.04 10*6/uL Normal 4.6-6.2 [facility] Comment on above: Performed By: #### L 100.0500, L500.2500 #### [facility] [address] [place], [address] RDW SD 48.8 fl High 35.1-43.9 [facility] Comment on above: Performed By: #### L 100.0500, L500.2500 #### [facility] [address] [place], [address] WBC (Bld) [#/Vol] 7.9 10*3/uL Normal 4.4-11.0 [facility] Comment on above: Performed By: #### L 100.0500, L500.2500 #### [facility] [address] [place], [address] Determination of erythrocyte mean corpuscular volume (MCV)Ordered By: Rod Castellanos on 09-16-2023 MCV (RBC) [Entitic vol] 89.3 fL 80-94 [facility] Erythrocyte distribution wid th ratioOrdered By: Rod Castellanos on 09-16-2023 Erythrocyte distribution width (RBC) [Ratio] 14.9 % 11.6-14.6 [facility] Erythrocyte distribution wid th standard deviationOrdered By: Rod Castellanos on 09-16-2023 Erythrocyte distribution width (RBC) [Entitic vol] 48.8 fL 35.1-43.9 [facility] Hematocrit Auto (Bld) [Volum e fraction]Ordered By: Rod Castellanos on 09-16-2023 Hematocrit (Bld) [Volume fraction] 45.0 % 40-54 [facility] - Chemistry and C hemistry - challengeOrdered By: Rod Castellanos on 09-16-2023 CO2 [Moles/Vol] 23.0 mmol/L 21.0-32.0 [facility] Urea nitrogen/Creatinine [Mass ratio] 25.0 mg/mg 10-20 [facility] - Hematology and Cell countsOrdered By: Rod Castellanos on 09-16-2023 MCH (RBC) [Entitic mass] 28.8 pg 27.0-32.0 [facility] MCHC (RBC) [Mass/Vol] 32.2 g/dL 32-36 [facility] Platelet mean volume (Bld) [Entitic vol] 9.4 fL 6.2-12.0 [facility] Platelets (Bld) [#/Vol] 146 10*3/uL 150-450 [facility] No Panel InformationOrdered By: Rod Castellanos on 09-16-2023 Estimated Creatinine Clearance Calc 116.91 ml/min [facility] Estimated GFR (MDRD) Amer 93 mL/min >60 [facility] Comment on above: GFR Calc Estimated GFR (MDRD) Non-Af Amer 77 mL/min >60 [facility] Comment on above: Non- GFR Calc RBC Auto (Bld) [#/Vol]Ordere d By: Rod Castellanos on 09-16-2023 RBC (Bld) [#/Vol] 5.04 10*6/uL 4.6-6.2 [facility] Serum or plasma calcium jarrod urement (mass/volume)Ordered By: Rod Castellanos on 09-16-2023 Calcium [Mass/Vol] 9.1 mg/dL 8.5-10.1 [facility] Serum or plasma creatinine m easurement (mass/volume)Ordered By: Rod Castellanos on 09-16-2023 Creatinine [Mass/Vol] 1.04 mg/dL 0.70-1.30 [facility] Comment on above: The validity of the calculated GFR & GFRAA in patients over 70 years has not been determined. Clinical correlation is essential. Serum or plasma urea nitroge n measurement (mass/volume)Ordered By: Rod Castellanos on 09-16-2023 Urea nitrogen [Mass/Vol] 26 mg/dL 01-12 [facility] Thin prep Papanicolaou smear with manual screeningOrdered By: Rod Castellanos on 09-16-2023 Thin prep Papanicolaou smear with manual screening 6 11-09 [facility] 12 Lead EKGon 09-15-2023 12 Lead EKG [facility] Cardiovascular Services [address] [place] [address] 12 Lead EKG 09/15/23 1729 MR#: [id number] Acct: [id number] Name: MARCEL TURCIOS Rep #: [id number] : 1960 62 From: Asael Marino MD Attending Dr: Dr. Jose David Majano DO Status: DIS IN Ordering Dr: Rod Castellanos DO Date: 09/15/23 Location: U Sex: M C Admitted: 09/15/23 Test Reason : ADMIT Blood Pressure : / mmHG Vent. Rate : 100 BPM Atrial Rate : 100 BPM P-R Int : 160 ms QRS Dur : 126 ms QT Int : 368 ms P-R-T Axes : 038 -21 -04 degrees QTc Int : 474 ms Normal sinus rhythm Right bundle branch block Inferior infarct , age undetermined Abnormal ECG When compared with ECG of 15-SEP-2023 11:40, MANUAL COMPARISON REQUIRED, DATA IS UNCONFIRMED Confirmed by Asael Marino ([id number]), assistant film editor SONA KNIGHT ([id number]) on 09/17/2023 6:19:15 AM Referred By: Confirmed By:Asael Marino 09/17/23 0619 Date Asael Marino MD CC: Dr. Rod Castellanos, ; Dr. Jose David Majano DO; No Primary Care Physician Signed Normal [facility] 12 Lead EKG [facility] Cardiovascular Services [address] [place] [address] 12 Lead EKG 09/15/23 1140 MR#: [id number] Acct: [id number] Name: MARCEL TURCIOS Rep #: [id number] : 1960 62 From: Asael Marino MD Attending Dr: Dr. Jose David Majano DO Status: ADM IN Ordering Dr: Bertram Yi DO Date: 09/15/23 Location: [facility] Sex: M C Admitted: 09/15/23 Test Reason : CP/TACHYCARDIA Blood Pressure : / mmHG Vent. Rate : 170 BPM Atrial Rate : 000 BPM P-R Int : 000 ms QRS Dur : 124 ms QT Int : 268 ms P-R-T Axes : 000 -44 -32 degrees QTc Int : 450 ms Critical Test Result: High HR Atrial flutter with 2:1 conduction Left axis deviation Right bundle branch block Inferior infarct , age undetermined Abnormal ECG Confirmed by Asael Marino ([id number]), assistant film editor SONA KNIGHT ([id number]) on 09/16/2023 10:46:01 AM Referred By: Confirmed By:Asael Marino 09/16/23 1046 Date Asael Marino MD CC: Dr. Bertram Yi, ; Dr. Jose David Majano DO; No Primary Care Physician Signed Normal [facility] Absolute lymphocyte countOrd ered By: Bertram Yi on 09-15-2023 Lymphocytes Auto (Unsp spec) [#/Vol] 2.01 10*3/uL 0.83-4.51 [facility] Activated partial thrombopla stin time (aPTT) in platelet poor plasma by coagulation aOrdered By: Bertram Yi on 09-15-2023 aPTT Coag (PPP) [Time] 26.4 s 24.1-36.2 [facility] Automated lymphocyte count a s percentage of total leukocytesOrdered By: Bertram Yi on 09-15-2023 Lymphocytes/100 WBC Auto (Unsp spec) 20.5 % 19-41 [facility] BNP,B-Type NATRIURETIC PEPTI Won 09-15-2023 Natriuretic peptide B (Bld) [Mass/Vol] 165.1 pg/mL High 0-100 [facility] Comment on above: Performed By: #### L 501.5200, L501.9520, L503.6005, L503.6620, L100.0100, L300.3900, L300.4310, L500.2500, L500.3400, L501.2450, L501.4020 ####[facility] [address] [place], [address] Basic Metabolic Profile (BMP )on 09-15-2023 BUN/CRE 14.1 RATIO Normal - [facility] Comment on above: Order Comment: 'TROP ' Serial specimen #1, #2 or #3: 1 Performed By: #### L 501.5200, L501.9520, L503.6005, L503.6620, L100.0100, L300.3900, L300.4310, L500.2500, L500.3400, L501.2450, L501.4020 #### [facility] [address] [place], [place], [phone] (180) CA,Total 9.2 mg/dL Normal 8.5-10.1 [facility] Comment on above: Order Comment: 'TROP ' Serial specimen #1, #2 or #3: 1 Performed By: #### L 501.5200, L501.9520, L503.6005, L503.6620, L100.0100, L300.3900, L300.4310, L500.2500, L500.3400, L501.2450, L501.4020 #### [facility] [address] [place], [address] Chloride [Moles/Vol] 105 mmol/L Normal 98-107 [facility] Comment on above: Order Comment: 'TROP ' Serial specimen #1, #2 or #3: 1 Performed By: #### L 501.5200, L501.9520, L503.6005, L503.6620, L100.0100, L300.3900, L300.4310, L500.2500, L500.3400, L501.2450, L501.4020 #### [facility] [address] [place], [address] CO2 [Moles/Vol] 22.0 mmol/L Normal 21.0-32.0 [facility] Comment on above: Order Comment: 'TROP ' Serial specimen #1, #2 or #3: 1 Performed By: #### L 501.5200, L501.9520, L503.6005, L503.6620, L100.0100, L300.3900, L300.4310, L500.2500, L500.3400, L501.2450, L501.4020 #### [facility] [address] [place], [address] Creatinine [Mass/Vol] 1.42 mg/dL High 0.70-1.30 [facility] Comment on above: Order Comment: 'TROP ' Serial specimen #1, #2 or #3: 1 Result Comment: The validity of the calculated GFR GFRAA in patients over 70 years has not been determined. Clinical correlation is essential. Performed By: #### L 501.5200, L501.9520, L503.6005, L503.6620, L100.0100, L300.3900, L300.4310, L500.2500, L500.3400, L501.2450, L501.4020 #### [facility] [address] [place], [address] ECRCL 79.58 ml/min Normal [facility] Comment on above: Order Comment: 'TROP ' Serial specimen #1, #2 or #3: 1 Performed By: #### L 501.5200, L501.9520, L503.6005, L503.6620, L100.0100, L300.3900, L300.4310, L500.2500, L500.3400, L501.2450, L501.4020 #### [facility] [address] [place], [place], [address] (765) EST GFR - AA 65 mL/min Normal >60 [facility] Comment on above: Order Comment: 'TROP ' Serial specimen #1, #2 or #3: 1 Result Comment: Afri can Portuguese GFR Calc Performed By: #### L 501.5200, L501.9520, L503.6005, L503.6620, L100.0100, L300.3900, L300.4310, L500.2500, L500.3400, L501.2450, L501.4020 #### [facility] [address] [place], [address] GAP 11 Normal 5-15 [facility] Comment on above: Order Comment: 'TROP ' Serial specimen #1, #2 or #3: 1 Performed By: #### L 501.5200, L501.9520, L503.6005, L503.6620, L100.0100, L300.3900, L300.4310, L500.2500, L500.3400, L501.2450, L501.4020 #### [facility] [address] [place], [place], [phone] (214) GFR/1.73 sq M.predicted among non-blacks MDRD (S/P/Bld) [Vol rate/Area] 53 mL/min/{1.73_m2} Low >60 [facility] Comment on above: Order Comment: 'TROP ' Serial specimen #1, #2 or #3: 1 Result Comment: Non- GFR Calc Performed By: #### L 501.5200, L501.9520, L503.6005, L503.6620, L100.0100, L300.3900, L300.4310, L500.2500, L500.3400, L501.2450, L501.4020 #### [facility] [address] [place], [address] Glucose [Mass/Vol] 145 mg/dL High 74-106 [facility] Comment on above: Order Comment: 'TROP ' Serial specimen #1, #2 or #3: 1 Result Comment: Fast ing Glucose result greater than or equal to 126 mg/dL suggests DIABETES MELLITUS per A.D.A. criteria. Performed By: #### L 501.5200, L501.9520, L503.6005, L503.6620, L100.0100, L300.3900, L300.4310, L500.2500, L500.3400, L501.2450, L501.4020 #### [facility] [address] [place], [address] Potassium [Moles/Vol] 4.1 mmol/L Normal 3.5-5.1 [facility] Comment on above: Order Comment: 'TROP ' Serial specimen #1, #2 or #3: 1 Performed By: #### L 501.5200, L501.9520, L503.6005, L503.6620, L100.0100, L300.3900, L300.4310, L500.2500, L500.3400, L501.2450, L501.4020 #### [facility] [address] [place], [address] Sodium [Moles/Vol] 138 mmol/L Normal 136-145 [facility] Comment on above: Order Comment: 'TROP ' Serial specimen #1, #2 or #3: 1 Performed By: #### L 501.5200, L501.9520, L503.6005, L503.6620, L100.0100, L300.3900, L300.4310, L500.2500, L500.3400, L501.2450, L501.4020 #### [facility] [address] [place], [address] Urea nitrogen [Mass/Vol] 20 mg/dL High 7-18 [facility] Comment on above: Order Comment: 'TROP ' Serial specimen #1, #2 or #3: 1 Performed By: #### L 501.5200, L501.9520, L503.6005, L503.6620, L100.0100, L300.3900, L300.4310, L500.2500, L500.3400, L501.2450, L501.4020 #### [facility] [address] [place], [address] Basophil percentageOrdered B y: Rod Castellanos on 09-15-2023 Basophil percentage 0-5 SEEN /hpf 0-5 [facility] Cholesterol [Mass/Vol] 174 mg/dL Normal 200 [facility] Comment on above: <200 mg/dL Desirable 200-240 mg/dL Borderline >240 mg/dL High Risk Result Comment: <200 mg/dL Desirable 200-240 mg/dL Borderline >240 mg/dL High Risk Performed By: #### L 500.4100, L501.9520, L501.9985 ####[facility] [address] [place], [address] Triglyceride [Mass/Vol] 173 mg/dL Normal [facility] Comment on above: The drugs N-Acetylcy steine and Metamizole may falsely depress this assay.Serum Triglycerides Reference Interval Normal <150 mg/dL Borderline high 150 - 199 mg/dL High 200 - 499 mg/dL Very High > or = 500 mg/dL Result Comment: The drugs N-Acetylcysteine and Metamizole may falsely depress this assay. Serum Triglycerides Reference Interval Normal <150 mg/dL Borderline high 150 - 199 mg/dL High 200 - 499 mg/dL Very High > or = 500 mg/dL Performed By: #### L 500.4100, L501.9520, L501.9985 ####[facility] [address] [place], [place], [address] Basophil percentageOrdered B y: Bertram Yi on 09-15-2023 Lactate [Moles/Vol] 1.7 mmol/L Normal 0.4-1.9 [facility] Comment on above: Order Comment: Y Performed By: #### L 501.5200, L501.9520, L503.6005, L503.6620, L100.0100, L300.3900, L300.4310, L500.2500, L500.3400, L501.2450, L501.4020 ####[facility] [address] [address] [place], [place], [id number] Basophils/100 WBC (Bld) 0.9 % 0-1 [facility] Bilirubin [Mass/Vol] 0.80 mg/dL 0.20-1.00 [facility] Comment on above: For patients on eltr ombopag therapy, use of Dimension [place] TBIL is not recommended. Chloride [Moles/Vol] 105 mmol/L 98-107 [facility] Eosinophils/100 WBC (Bld) 2.1 % 0-5 [facility] Glucose [Mass/Vol] 145 mg/dL 74-106 [facility] Comment on above: Fasting Glucose resu lt greater than or equal to 126 mg/dL suggests DIABETES MELLITUS per A.D.A. criteria. Hemoglobin (Bld) [Mass/Vol] 18.3 g/dL 13.0-16.5 [facility] Comment on above: CRITICAL VALUE VERIF IED. CALLED TO KESANW26/20/24 Alla6 Ne Castro.RESULTS READ BACK BY SAME . Monocytes/100 WBC (Bld) 11.9 % 0-10 [facility] Neutrophils (Bld) [#/Vol] 6.3 10*3/uL 2.0-7.7 [facility] Neutrophils/100 WBC (Bld) 63.9 % 47-70 [facility] Potassium [Moles/Vol] 4.1 mmol/L 3.5-5.1 [facility] Protein [Mass/Vol] 7.7 g/dL 6.4-8.2 [facility] Sodium [Moles/Vol] 138 mmol/L 136-145 [facility] WBC (Bld) [#/Vol] 9.8 10*3/uL 4.4-11.0 [facility] Bilirubin Test strip Ql (U)O rdered By: Rod Castellanos on 09-15-2023 Bilirubin Ql (U) 3 mg/dL Negative [facility] Comment on above: COLOR OF URINE MAY A FFECT DIPSTICK RESULTS. Chest 1 View (Portable)on Chest 1 View (Portable) [facility] Imaging Services [address] [place] [address] Chest 1 View (Portable) MR#: [id number] Acct: [id number] Name: MARCEL TURCIOS Rep #: [id number] : 1960 M 62 From: Emory klein MD PCP: Dr. Lola Cartagena MD Status: PRE ER Study: Chest 1 View (Portable) Date of Exam: 09/15/23 Exam# [id number] Ordering Dr: Bertram Yi DO :[id number] STUDY: X-RAY CHEST REASON FOR EXAM: Male, 62 years old. Cough TECHNIQUE: Single AP portable view of the chest. COMPARISON: Comparison is made with prior study dated August 16, 2019. FINDINGS: EKG electrodes are seen. The lungs are clear and expanded. There is no demonstrated pleural abnormality. There is mild cardiac enlargement. Normal mediastinum and randy. Normal visualized pulmonary arteries. Normal visualized aortic arch and descending thoracic aorta. Normal visualized thoracic spine. Normal visualized ribs, clavicles, and shoulders. There is no demonstrated abnormality of the visualized soft tissue structures of the upper abdomen. RAD/Chest 1 View (Portable) IMPRESSION: Mild cardiomegaly. Electronically Signed: Emory Tejada MD at 12:50 EDT Reading Location ID and State: [facility] / [place] , Service support , CC: Dr. Bertram Yi DO; Dr. Lola Cartagena MD Skein Yarn Drier: Signed Normal [facility] Consultation - Cardiologyon 09-15-2023 Consultation - Cardiology [facility] Medical Records Department [address] [place] [address] Consultation - Cardiology 09/15/23 1808 MR#: [id number] Acct: [id number] Name: MARCEL TURCIOS Rep #: [id number] : 1960 62 From: Clark Lerma MD PCP: Care Physician,No Primary Status:ADM IN Location: [place] [address] Assessment Plan Assessment/Plan (1) Atrial fibrillation and flutter: PLAN: Paroxysmal atrial flutter. He presents with paroxysmal atrial flutter. He spontaneously converted to sinus rhythm. No recommendation will be to place him on a beta-ortega with Toprol-XL 50 mg a day. While he is in hospital he can be on metoprolol 25 mg twice a day. His echocardiogram performed today demonstrated preserved left ventricular systolic function though it was a suboptimal study. At this time I would not anticoagulate him. I do not think that his atrial flutter was necessarily related to his generalized weakness. Thank you for allowing me to participate in the care of your patient. Please don't hesitate to call if any issues arise. HPI Consult Data Date of Consult: 09/15/23 HPI Narrative HPI Narrative: MARCEL TURCIOS, is a 62 M who presents to the emergency room with worsening weakness and dyspnea on exertion. He says that he was sent to the emergency room by his daughter who felt that he was septic and so came to the emergency room. He does have a history of morbid obesity, obstructive sleep apnea status post CPAP use, heavy tobacco use. He has had occasional palpitations but denies any chest pain and paroxysmal nocturnal dyspnea. He has been short of breath over the last couple years. He says that he did have an echocardiogram as well as a stress test approximately 4 5 years ago all of which were normal. On arrival to the ED, patient was found to be tachycardic with atrial flutter with 2 1 block and was given intravenous adenosine. He was then started on intravenous diltiazem and transferred to the telemetry unit and cardiology was consulted via text. At this particular time he appears to be doing well. An echocardiogram was ordered which was a suboptimal study but demonstrated overall preserved left ventricular systolic function. He denies any neck arm or jaw discomfort suggest angina. While I was in the room he converted back to normal sinus rhythm [facility] Medical History Anxiety Back pain COPD (chronic obstructive pulmonary disease) Foraminal stenosis of lumbosacral region ZAN (obstructive sleep apnea) PTSD (post-traumatic stress disorder) Home Medications NK 09/15/23 [History Last Taken Unknown] Allergy/AdvReac Type Severity Reaction Status Date / Time codeine Allergy Hives Verified 09/15/23 11:22 Iodinated Contrast Media Allergy Hives Verified 09/15/23 11:22 [Iodinated Contrast Media - IV Dye] diclofenac AdvReac Swelling Verified 09/15/23 11:22 metaxalone AdvReac Swelling Verified 09/15/23 11:22 methylphenidate AdvReac hallucinati Verified 09/15/23 11:22 [From Ritalin] ons Phenylpiperazine AdvReac Other Verified 09/15/23 11:22 Antidepressant Tetracyclic Antidepressants AdvReac Other Verified 09/15/23 11:22 Tricyclic Antidepressants AdvReac Other Verified 09/15/23 11:22 and Tricy Social History Smoking Status: Current every day smoker tobacco type: cigarettes ROS Constitutional Constitutional: Denies fever(s) or weight loss Eyes Eyes: Reports systems reviewed and no addt'l complaints, except as documented ENT HEENT: Reports systems reviewed and no addt'l complaints, except as documented Cardiovascular Cardiovascular: Denies chest pain at rest, chest pain with activity, dyspnea at rest, dyspnea on exertion, edema, palpitations or paroxysmal nocturnal dyspnea Respiratory/Chest Respiratory/Chest: Denies dyspnea on exertion, productive cough, shortness of breath at rest or shortness of breath with exertion Gastrointestinal Gastrointestinal: Denies change in bowel habits, nausea, vomiting or weight changes Genitourinary Genitourinary: Denies difficulty urinating Musculoskeletal Musculoskeletal: Denies joint stiffness or muscle weakness Integumentary Integumentary: Denies lesions Neurologic Neurologic: Denies dizziness or syncope Psychiatric Psychiatric: Denies anxiety Endocrine Endocrinology: Denies excessive sweating or fatigue Hematologic/Lymphatic Hematologic/Lymphatic: Denies anemia Allergic/Immunologic Allergic/Immunologic: Denies seasonal rhinorrhea Physical Exam Const alert, oriented x3 and no apparent distress General Appearance: cooperative HEENT hearing grossly normal bilaterally Head and Scalp: atraumatic Eyes EOMs intact bilaterally Neck General: normal visual inspection Chest inspection of chest normal (more content not included)... Normal [facility] Determination of erythrocyte mean corpuscular volume (MCV)Ordered By: Bertram Yi on 09-15-2023 MCV (RBC) [Entitic vol] 88.9 fL 80-94 [facility] Direct bilirubinOrdered By: Bertram Yi on 09-15-2023 Bilirubin.direct [Mass/Vol] 0.22 mg/dL 0.00-0.30 [facility] Echo Complete W/ Contraston 09-15-2023 Echo Complete W/ Contrast [facility] [address] [place] [address] Echo Complete W/ Contrast 09/15/23 1545 MR#: [id number] Acct: [id number] Name: MARCEL TURCIOS Rep #: [id number] : 1960 62 From: Clark Lerma MD Attending Dr: Dr. Rod Castellanos, Status : ADM IN Ordering Dr: Rod Castellanos DO Date: 09/15/23 Location: U Sex: M C Admitted: 09/15/23 Reason For Study: Afib/Flutter Procedure This was a 2D Doppler, Color Flow transthoracic echocardiogram. The study was technically difficult. Limited views were obtained. Contrast injection was performed. Exam performed portable in ED. Left Ventricle Normal left ventricle. The estimated ejection fraction is 65 %. No regional wall motion abnormalities noted. Right Ventricle Normal RV size. Normal systolic function. Pericardium/Pleural No pericardial effusion. Medication Diluted definity 3ml given slow IV push to enhance endocardial definition. MMode/2D Measurements Calculations RVDd: 3.7 cm Time Measurements MV dec time: 0.20 sec Doppler Measurements Calculations MV E max ele: 55.2 cm/sec Lat Peak E' Ele: 14.7 cm/sec Med Peak E' Ele: 9.6 cm/sec MV A max ele: 54.8 cm/sec E/E' lat: 3.7 E/E' med: 5.7 MV E/A: 1.0 MV V2 max: 65.6 cm/sec Ao V2 max: 112.9 cm/sec LV V1 max: 95.4 cm/sec MV max P.7 mmHg Ao max P.1 mmHg LV V1 max P.6 mmHg MV V2 mean: 47.4 cm/sec Ao V2 mean: 90.2 cm/sec LV V1 mean P.7 mmHg MV mean P.98 mmHg Ao mean P.4 mmHg LV V1 mean: 59.7 cm/sec MV V2 VTI: 16.9 cm Ao V2 VTI: 19.1 cm LV V1 VTI: 14.5 cm AV (velocity ratio): 0.76 ECHO/Echo Complete W/ Contrast Interpretation Summary Normal left ventricle. The estimated ejection fraction is 65 %. The study was technically difficult. Contrast injection was performed. Ordering Physician: Rod Castellanos Performed By: Jose Gaines RCS 09/15/23 1710 Date Clrak Lerma MD CC: Dr. Rod Castellanos DO; No Primary Care Physician Date Dictated: 09/15/23 1545 Date Transcribed: 09/15/23 1730 Skein Yarn Drier: Signed Normal [facility] Emergency Department Summary on 09-15-2023 Emergency Department Summary [facility] Medical Records Department [address] [place] [address] Emergency Department Summary 09/15/23 MR#: [id number] Acct: [id number] Name: MARCEL TURCIOS Rep #: [id number] : 1960 62 From: Bertram Yi DO PCP: Care Physician,No Primary Status:ADM IN Location: [address] History of Present Illness Chief Complaint: [facility]ness [facility] Medical History (Updated 09/15/23 @ 13:[address] Bertram Yi DO) Anxiety Back pain COPD (chronic obstructive pulmonary disease) Foraminal stenosis of lumbosacral region ZAN (obstructive sleep apnea) PTSD (post-traumatic stress disorder) Home Medications NK 09/15/23 [History Last Taken Unknown] Allergy/AdvReac Type Severity Reaction Status Date / Time codeine Allergy Hives Verified 09/15/23 11:22 Iodinated Contrast Media Allergy Hives Verified 09/15/23 11:22 [Iodinated Contrast Media - IV Dye] diclofenac AdvReac Swelling Verified 09/15/23 11:22 metaxalone AdvReac Swelling Verified 09/15/23 11:22 methylphenidate AdvReac hallucinati Verified 09/15/23 11:22 [From Ritalin] ons Phenylpiperazine AdvReac Other Verified 09/15/23 11:22 Antidepressant Tetracyclic Antidepressants AdvReac Other Verified 09/15/23 11:22 Tricyclic Antidepressants AdvReac Other Verified 09/15/23 11:22 and Tricy Social History (Updated 04/23/20 @ 14:[address] Rosie Lucero MD) Smoking Status: Current every day smoker tobacco type: cigarettes EXAM Physical Exam Const Vital Signs: 09/15/23 11:19 09/15/23 11:19 09/15/23 11:22 Temperature 96.5 F L 96.5 F L 96.5 F L Temperature Source Temporal Temporal Temporal Pulse Rate 86 86 86 Respiratory Rate 18 16 18 Respiratory Effort Respiratory Pattern Blood Pressure 114/96 H 114/96 H 114/96 H Blood Pressure Mean 102 102 102 Pulse Ox 98 98 98 Oxygen Delivery Method Room Air Room Air Room Air Oxygen Flow Rate (L/min) 09/15/23 11:33 09/15/23 11:33 09/15/23 11:32 Temperature 97.8 F Temperature Source Temporal Pulse Rate 169 H 170 H Respiratory Rate 15 16 Respiratory Effort Short of Breath Respiratory Pattern Normal Blood Pressure 105/81 H 105/81 H Blood Pressure Mean 89 89 Pulse Ox 94 96 Oxygen Delivery Method Room Air Room Air Oxygen Flow Rate (L/min) 09/15/23 11:47 09/15/23 11:52 09/15/23 12:26 Temperature Temperature Source Pulse Rate 171 H 162 H Respiratory Rate 22 H 16 Respiratory Effort Short of Breath Respiratory Pattern Blood Pressure 132/105 H 131/82 H Blood Pressure Mean 114 98 Pulse Ox 97 95 Oxygen Delivery Method Nasal Cannula Nasal Cannula Oxygen Flow Rate (L/min) 2 2 09/15/23 12:32 09/15/23 13:00 09/15/23 14:00 Temperature 97.9 F 98.0 F 97.5 F L Temperature Source Temporal Temporal Temporal Pulse Rate 173 H 121 H 130 H Respiratory Rate 23 H 24 H 16 Respiratory Effort Respiratory Pattern Blood Pressure 124/87 H 149/87 H 116/67 Blood Pressure Mean 99 107 83 Pulse Ox 96 95 94 Oxygen Delivery Method Nasal Cannula Nasal Cannula Nasal Cannula Oxygen Flow Rate (L/min) 2 2 09/15/23 15:00 09/15/23 15:00 09/15/23 16:00 Temperature 98.4 F 98.4 F 97.4 F L Temperature Source Oral Oral Temporal Pulse Rate 102 H 107 H 98 Respiratory Rate 20 H 20 H 24 H Respiratory Effort Respiratory Pattern Blood Pressure 116/71 116/71 128/73 H Blood Pressure Mean 86 86 91 Pulse Ox 94 94 98 Oxygen Delivery Method Nasal Cannula Nasal Cannula Nasal Cannula Oxygen Flow Rate (L/min) MDM MDM MDM Narrative Medical decision making narrative: Differential broad based including but not limited to atrial and ventricular tachy dysrhythmias, ACS, sepsis, pneumonia, dehydration, electrolyte disturbance patient brought into the room where he was noted to be significantly tachycardic. EKG shows a supraventricular tachycardia with right bundle branch block. I suspect an underlying flutter. There is not much variation from around 170 bpm. I asked to have the patient moved to resuscitation room. I spoke with him at length and we went ahead and gave him 6 mg of adenosine which did not cause any change. 12 mg resulted in a slowing down of the ventricular rate and the emergence of flutter waves. He then received 20 mg of Cardizem which slowed him down to around 110 to 130 bpm. This then changed his rhythm to apparent atrial fibrillation on the monitor. He was given a dose of Lovenox and placed on Cardizem drip. Hemoglobin 18.3 white count 9.8 platelet count of 177. Patient troponin 20 lactic acid 1.7 glucose 145 TSH 2.82 BNP 6.65. Sodium potassium and magnesium were within normal limits. My independent interpretation of the chest x-ray is mild cardiomegaly but no o (more content not included)... Normal [facility] Erythrocyte distribution wid th ratioOrdered By: Bertram Yi on 09-15-2023 Erythrocyte distribution width (RBC) [Ratio] 15.1 % 11.6-14.6 [facility] Erythrocyte distribution wid th standard deviationOrdered By: Bertram Yi on 09-15-2023 Erythrocyte distribution width (RBC) [Entitic vol] 48.6 fL 35.1-43.9 [facility] H AND P Exam - Hospital[facility] 09-15-2023 H&P Exam - Hospitalist [facility] Medical Records Department [address] [place] [address] H P Exam - Hospitalist 09/15/23 1350 MR#: [id number] Acct: [id number] Name: MARCEL TURCIOS Rep #: [id number] : 1960 62 From: Rod Castellanos DO PCP: Care Physician,No Primary Status:ADM IN Location: [facility] [id number] HPI - General General Date of Admission: 09/15/23 Date of Service: 09/15/23 Chief Complaint: Worsening weakness and progressive dyspnea with exertion HPI Narrative MARCEL TURCIOS, is a 62 M who presented to [facility] ED on 09/15/2023 with worsening weakness and progressive dyspnea with exertion. Patient seen at bedside in the ED, granddaughter present. Patient was laying comfortably in bed, conversing normally and in no acute distress during our encounter. He was laying almost flat in bed and had no issues with breathing. Patient states he currently feels much better now than he did over the past few days. States he recently had dental pain that started last Wednesday and he had 2 teeth extracted on Wednesday, and since Wednesday he has felt significantly more tired and weak than his normal. He denies any significant dental pain or fevers or chills over that time. He lives in a trailer by himself down in [place] and was hardly able to do anything for himself, so he came to the ED for further evaluation. Patient's medical history is significant for morbid obesity, ZAN, presumed COPD, heavy smoking hist ory and chronic back pain. States he was diagnosed with ZAN about 20 years ago, had a sleep study d one at our hospital he believes. He was wearing his own CPAP up until about 1 year ago, when his CP AP broke. He has now been using a friend's CPAP since then and continues to feel refreshed in the m orning upon awakening. He started smoking at age 12 and was smoking 1 to 1.5 packs/day over the pas t few years but has hardly smoked at all over the past 4 to 5 days due to fatigue and disinterest in smoking. He states that at one point in the past he was smoking up to 6 packs of cigarettes per da y. He has never been on any home inhalers. Denies ever having a COPD exacerbation. Denies ever ne edin home oxygen. Patient states that over the past 4 to 5 months he has progressively become more short of breath with exertion. States that over the past few weeks it has gotten to the point where he becomes quite short of breath with walking around in his trailer. He denies any recent illness es. He does state that he had both a stress test done and an echocardiogram done at some point in t he past, and on chart review he had a negative stress test in July 2019 and last echo in 2018 that showed an EF of 60% and no significant abnormalities. On arrival to the ED, patient was found to be tachycardic with what appeared to be either a wide- complex tachycardia versus A-fib/flutter with RVR. He was given adenosine and per the ED staff he appeared to have flutter waves. He was then given a dose of Cardizem and the rate seemed to flipped to A-fib with RVR. He was then started on a Cardizem drip and an EKG was obtained. EKG at that time actually showed normal sinus rhythm with heart rate in the 90s with a right bundle branch block. No ischemic changes noted. During our encounter, his heart rate remained in the 90s and appeared to be sinus rhythm. Patient states he felt palpitations after his dental procedure on Wednesday and has intermittently felt palpitations since then. However, he denies ever feeling palpitations prior to Wednesday. Patient denies any alcohol use. Denies any substance abuse. Does state that he has gained a fairly significant amount of weight over the past few years since he retired from his job. No other acute concerns this time. [facility] Medical History Anxiety Back pain COPD (chronic obstructive pulmonary disease) Foraminal stenosis of lumbosacral region ZAN (obstructive sleep apnea) PTSD (post-traumatic stress disorder) Home Medications NK 09/15/23 [History Last Taken Unknown] Allergy/AdvReac Type Severity Reaction Status Date / Time codeine Allergy Hives Verified 09/15/23 11:22 Iodinated Contrast Media Allergy Hives Verified 09/15/23 11:22 [Iodinated Contrast Media - IV Dye] diclofenac AdvReac Swelling Verified 09/15/23 11:22 metaxalone AdvReac Swelling Verified 09/15/23 11:22 methylphenidate AdvReac hallucinati Verified 09/15/23 11:22 [From Ritalin] ons Phenylpiperazine AdvReac Other Verified 09/15/23 11:22 Antidepressant Tetracyclic Antidepressants AdvReac Other Verified 09/15/23 11:22 Tricyclic Antidepressants AdvReac Other Verified 09/15/23 11:22 and Tricy Social History Smoking Status: Current every day smoker tobacco type: cigarettes ROS (more content not included)... Normal [facility] Hematocrit Auto (Bld) [Volum e fraction]Ordered By: Bertram Yi on 09-15-2023 Hematocrit (Bld) [Volume fraction] 54.6 % 40-54 [facility] Hemoglobin A1con 09-15-2023 HbA1c (Bld) [Mass fraction] 5.8 % High 3.8-5.6 [facility] Comment on above: Result Comment: Norm al < 5.7 % Prediabetic 5.7 - 6.4 % Diabetic >or= 6.5 % Please note range changes. Performed By: #### L 100.0500, L500.2500 #### [facility] [address] [place], [address] Hyaline casts LM.LPF (Urine sed) [#/Area]Ordered By: Rod Castellanos on 09-15-2023 Hyaline casts (Urine sed) [#/Area] 0 /[LPF] 0-5 [facility] Immature granulocytes/100 WB C Auto (Bld)Ordered By: Bertram Yi on 09-15-2023 Immature granulocytes/100 WBC (Bld) 0.700 % 0.0-0.9 [facility] Comment on above: IG% - Immature Granu locytes (promyelocytes, myelocytes and metamyelocytes) > 1% indicates that a LEFT SHIFT is Present. Ketones Test strip Ql (U)Ord ered By: Rod Castellanos on 09-15-2023 Ketones Ql (U) 50 mg/dl Negative [facility] L501.4020on 09-15-2023 TROPONIN-I HS 20 pg/mL Normal 3.0-78.0 [facility] Comment on above: Order Comment: 'TROP ' Serial specimen #1, #2 or #3: 1 Result Comment: Plea se Note: New Test Units and Gender Specific Reference Ranges. For more information see Policy Stat Procedure [place] High Sensitivity Troponin (TNIH) and attachments. Performed By: #### L 501.5200, L501.9520, L503.6005, L503.6620, L100.0100, L300.3900, L300.4310, L500.2500, L500.3400, L501.2450, L501.4020 ####[facility] [address] [place], [place], [id number] Laboratory - Chemistry and C hemistry - challengeOrdered By: Rod Castellanos on 09-15-2023 Sodium (U) [Moles/Vol] 16 mmol/L Not Establ. [facility] Laboratory - Chemistry and C hemistry - challengeOrdered By: Bertram Yi on 09-15-2023 Natriuretic peptide B (Bld) [Mass/Vol] 165.1 pg/mL 0-100 [facility] ALP [Catalytic activity/Vol] 70 U/L 45-117 [facility] ALT [Catalytic activity/Vol] 48 U/L 16-61 [facility] CO2 [Moles/Vol] 22.0 mmol/L 21.0-32.0 [facility] Globulin (S) [Mass/Vol] 4.3 g/dL 2.2-4.2 [facility] Lipase [Catalytic activity/Vol] 38 U/L 13-75 [facility] Comment on above: Please note:LIPASE r evised reference range effective 22. New Lipase methodology. Expected to produce lower values than the previous assay method. NEW Reference Range: 13 - 75 U/L Magnesium [Mass/Vol] 2.3 mg/dL 1.6-2.6 [facility] Urea nitrogen/Creatinine [Mass ratio] 14.1 mg/mg 10-20 [facility] Laboratory - CoagulationOrde red By: Bertram Yi on 09-15-2023 INR Coag (Bld) [Relative time] 1.0 {INR} [facility] PT Coag (PPP) [Time] 13.6 s 11.7-14.9 [facility] Laboratory - Hematology and Cell countsOrdered By: Bertram Yi on 09-15-2023 MCH (RBC) [Entitic mass] 29.8 pg 27.0-32.0 [facility] MCHC (RBC) [Mass/Vol] 33.5 g/dL 32-36 [facility] Nucleated RBC/100 WBC (Bld) [Ratio] 0 % 0-5 [facility] Platelet mean volume (Bld) [Entitic vol] 9.4 fL 6.2-12.0 [facility] Platelets (Bld) [#/Vol] 177 10*3/uL 150-450 [facility] Lipaseon 09-15-2023 Lipase [Catalytic activity/Vol] 38 U/L Normal 13-75 [facility] Comment on above: Order Comment: 'TROP ' Serial specimen #1, #2 or #3: 1 Result Comment: Priscilla poon note: LIPASE revised reference range effective 22. New Lipase methodology. Expected to produce lower values than the previous assay method. NEW Reference Range: 13 - 75 U/L Performed By: #### L 501.5200, L501.9520, L503.6005, L503.6620, L100.0100, L300.3900, L300.4310, L500.2500, L500.3400, L501.2450, L501.4020 #### [facility] [address] [place], [address] Lipid Profileon 09-15-2023 Cholesterol in VLDL [Mass/Vol] 35 mg/dL Normal 5-40 [facility] Comment on above: Performed By: #### L 500.4100, L501.9520, L501.9985 ####[facility] [address] [place], [address] Lipid ProfileOrdered By: Terri Castellanos on 09-15-2023 Cholesterol in HDL [Mass/Vol] 45 mg/dL Normal [facility] Comment on above: The drugs N-Acetylcy steine and Metamizole may falsely depress this assay. Reference Range HDL <40 mg/dL Low HDL Cholesterol HDL >or= 60 mg/dL High HDL Cholesterol Result Comment: The drugs N-Acetylcysteine and Metamizole may falsely depress this assay. Reference Range HDL <40 mg/dL Low HDL Cholesterol HDL >or= 60 mg/dL High HDL Cholesterol Performed By: #### L 500.4100, L501.9520, L501.9985 ####[facility] [address] [place], [address] Cholesterol in LDL [Mass/Vol] 94 mg/dL Normal 0-130 [facility] Comment on above: Performed By: #### L 500.4100, L501.9520, L501.9985 ####[facility] [address] [place], [address] Liver Profileon 09-15-2023 Albumin [Mass/Vol] 3.4 g/dL Normal 3.2-5.0 [facility] Comment on above: Order Comment: 'TROP ' Serial specimen #1, #2 or #3: 1 Performed By: #### L 501.5200, L501.9520, L503.6005, L503.6620, L100.0100, L300.3900, L300.4310, L500.2500, L500.3400, L501.2450, L501.4020 #### [facility] [address] [place], [address] ALK P 70 U/L Normal 45-117 [facility] Comment on above: Order Comment: 'TROP ' Serial specimen #1, #2 or #3: 1 Performed By: #### L 501.5200, L501.9520, L503.6005, L503.6620, L100.0100, L300.3900, L300.4310, L500.2500, L500.3400, L501.2450, L501.4020 #### [facility] [address] [place], [address] ALT [Catalytic activity/Vol] 48 U/L Normal 16-61 [facility] Comment on above: Order Comment: 'TROP ' Serial specimen #1, #2 or #3: 1 Performed By: #### L 501.5200, L501.9520, L503.6005, L503.6620, L100.0100, L300.3900, L300.4310, L500.2500, L500.3400, L501.2450, L501.4020 #### [facility] [address] [place], [address] AST [Catalytic activity/Vol] 32 U/L Normal 15-37 [facility] Comment on above: Order Comment: 'TROP ' Serial specimen #1, #2 or #3: 1 Performed By: #### L 501.5200, L501.9520, L503.6005, L503.6620, L100.0100, L300.3900, L300.4310, L500.2500, L500.3400, L501.2450, L501.4020 #### [facility] [address] [place], [address] Bilirubin [Mass/Vol] 0.80 mg/dL Normal 0.20-1.00 [facility] Comment on above: Order Comment: 'TROP ' Serial specimen #1, #2 or #3: 1 Result Comment: For patients on eltrombopag therapy, use of Dimension [place] TBIL is not recommended. Performed By: #### L 501.5200, L501.9520, L503.6005, L503.6620, L100.0100, L300.3900, L300.4310, L500.2500, L500.3400, L501.2450, L501.4020 #### [facility] [address] [place], [address] Bilirubin.direct [Mass/Vol] 0.22 mg/dL Normal 0.00-0.30 [facility] Comment on above: Order Comment: 'TROP ' Serial specimen #1, #2 or #3: 1 Performed By: #### L 501.5200, L501.9520, L503.6005, L503.6620, L100.0100, L300.3900, L300.4310, L500.2500, L500.3400, L501.2450, L501.4020 #### [facility] [address] [place], [address] Globulin (S) [Mass/Vol] 4.3 g/dL High 2.2-4.2 [facility] Comment on above: Order Comment: 'TROP ' Serial specimen #1, #2 or #3: 1 Performed By: #### L 501.5200, L501.9520, L503.6005, L503.6620, L100.0100, L300.3900, L300.4310, L500.2500, L500.3400, L501.2450, L501.4020 #### [facility] [address] [place], [place], [id number] T PROT 7.7 g/dL Normal 6.4-8.2 [facility] Comment on above: Order Comment: 'TROP ' Serial specimen #1, #2 or #3: 1 Performed By: #### L 501.5200, L501.9520, L503.6005, L503.6620, L100.0100, L300.3900, L300.4310, L500.2500, L500.3400, L501.2450, L501.4020 #### [facility] [address] [place], [address] Magnesiumon 09-15-2023 Magnesium [Mass/Vol] 2.3 mg/dL Normal 1.6-2.6 [facility] Comment on above: Order Comment: 'TROP ' Serial specimen #1, #2 or #3: 1 Performed By: #### L 501.5200, L501.9520, L503.6005, L503.6620, L100.0100, L300.3900, L300.4310, L500.2500, L500.3400, L501.2450, L501.4020 ####[facility] [address] [place], [place], [id number] Mucus LM Ql (Urine sed)Order ed By: Rod Castellanos on 09-15-2023 Mucus Ql (Urine sed) 3+ /hpf [facility] Nitrite Test strip Ql (U)Ord ered By: Rod Castellanos on 09-15-2023 Nitrite Ql (U) Negative Negative [facility] No Panel InformationOrdered By: Rod Castellanos on 09-15-2023 Urine RBC 0-5 SEEN /hpf 0-5 [facility] VLDL Cholesterol 35 mg/dL 5-40 [facility] No Panel InformationOrdered By: Bertram Yi on 09-15-2023 Estimated Creatinine Clearance Calc 79.58 ml/min [facility] Estimated GFR (MDRD) Amer 65 mL/min >60 [facility] Comment on above: GFR Calc Estimated GFR (MDRD) Non-Af Amer 53 mL/min >60 [facility] Comment on above: Non- GFR Calc Troponin I High Sensitivity 20 pg/mL 3.0-78.0 [facility] Comment on above: Please Note: New Yary t Units and Gender Specific Reference Ranges. For more information see Policy Stat Procedure [place] High Sensitivity Troponin (TNIH) and attachments. Partial Thromboplast Timeon 09-15-2023 aPTT Coag (d) [Time] 26.4 s Normal 24.1-36.2 [facility] Comment on above: Performed By: #### L 501.5200, L501.9520, L503.6005, L503.6620, L100.0100, L300.3900, L300.4310, L500.2500, L500.3400, L501.2450, L501.4020 #### [facility] [address] [place], [address] Protein Test strip Ql (U)Ord ered By: Rod Castellanos on 09-15-2023 Protein Ql (U) 30 mg/dl Negative [facility] Protein+Creatinine Ratio,Uri neon 09-15-2023 PROT:CRE RATIO 84 mg/g CRE Normal 0-200 [facility] Comment on above: Performed By: #### L 400.0001, L501.0900, L501.5500 ####[facility] [address] [place], [address] Protein (U) [Mass/Vol] 35.9 mg/dL High <11.9 [facility] Comment on above: Performed By: #### L 400.0001, L501.0900, L501.5500 ####[facility] [address] [place], [address] UR CREAT 427.00 mg/dL Normal NO RANGE EST. [facility] Comment on above: Performed By: #### L 400.0001, L501.0900, L501.5500 ####[facility] [address] [place], [address] Prothrombin Time w/INRon INR Coag (PPP) [Relative time] 1.0 {INR} Normal [facility] Comment on above: Performed By: #### L 501.5200, L501.9520, L503.6005, L503.6620, L100.0100, L300.3900, L300.4310, L500.2500, L500.3400, L501.2450, L501.4020 #### [facility] [address] [place], [address] PT Coag (PPP) [Time] 13.6 s Normal 11.7-14.9 [facility] Comment on above: Performed By: #### L 501.5200, L501.9520, L503.6005, L503.6620, L100.0100, L300.3900, L300.4310, L500.2500, L500.3400, L501.2450, L501.4020 #### [facility] [address] [place], [place], [id number] RBC Auto (Bld) [#/Vol]Ordere d By: Bertram Yi on 09-15-2023 RBC (Bld) [#/Vol] 6.14 10*6/uL 4.6-6.2 [facility] Review by pathologistOrdered By: Bertram Yi on 09-15-2023 Pathologist review Cesar (Unsp spec) [Interp] May foll [facility] Serum or plasma calcium jarrod urement (mass/volume)Ordered By: Bertram Yi on 09-15-2023 Calcium [Mass/Vol] 9.2 mg/dL 8.5-10.1 [facility] Serum or plasma creatinine m easurement (mass/volume)Ordered By: Bertram Yi on 09-15-2023 Creatinine [Mass/Vol] 1.42 mg/dL 0.70-1.30 [facility] Comment on above: The validity of the calculated GFR & GFRAA in patients over 70 years has not been determined. Clinical correlation is essential. Serum or plasma thyroid stim ulating hormone (TSH) measurement (units/volume)Ordered By: Bertram Yi on 09-15-2023 TSH Qn 2.82 uIU/mL 0.358-3.74 [facility] Serum or plasma thyroid stim ulating hormone (TSH) measurement (units/volume)Ordered By: Rod Castellanos on 09-15-2023 TSH Qn 3.10 uIU/mL 0.358-3.74 [facility] Serum or plasma urea nitroge n measurement (mass/volume)Ordered By: Bertram Yi on 09-15-2023 Urea nitrogen [Mass/Vol] 20 mg/dL 7-18 [facility] Squamous epithelial cells de tection in urine sediment by light microscopyOrdered By: Rod Castellanos on 09-15-2023 Epithelial cells.squamous LM Ql (Urine sed) 0 SEEN /hpf 0-5 [facility] Thin prep Papanicolaou smear with manual screeningOrdered By: Rod Castellanos on 09-15-2023 Protein (U) [Mass/Vol] 35.9 mg/dL 0.0-11.8 [facility] Thin prep Papanicolaou smear with manual screeningOrdered By: Bertram Yi on 09-15-2023 Thin prep Papanicolaou smear with manual screening 3.4 g/dL 3.2-5.0 [facility] Thin prep Papanicolaou smear with manual screening 32 U/L 15-37 [facility] Thin prep Papanicolaou smear with manual screening 11 5-15 [facility] Thyroid Stim Hormone (TSH)on 09-15-2023 TSH 3.10 uIU/mL Normal 0.358-3.74 [facility] Comment on above: Performed By: #### L 100.0500, L500.2500 #### [facility] [place], [address] TSH 2.82 uIU/mL Normal 0.358-3.74 [facility] Comment on above: Order Comment: 'TROP ' Serial specimen #1, #2 or #3: 1 Performed By: #### L 501.5200, L501.9520, L503.6005, L503.6620, L100.0100, L300.3900, L300.4310, L500.2500, L500.3400, L501.2450, L501.4020 ####[facility] [address] [place], [address] Urinalysis, Completeon 09-14 CAST,HYALINE 0-5 SEEN Normal 0-5 [facility] Comment on above: Order Comment: CLEAN CATCH Performed By: #### L 400.0001, L501.0900, L501.5500 ####[facility] [address] [place], [address] Mucus Ql (Urine sed) 3+ /hpf Normal [facility] Comment on above: Order Comment: CLEAN CATCH Performed By: #### L 400.0001, L501.0900, L501.5500 ####[facility] [address] [place], [address] RBC 0-5 SEEN Normal 0-5 [facility] Comment on above: Order Comment: CLEAN CATCH Performed By: #### L 400.0001, L501.0900, L501.5500 ####[facility] [address] [place], [address] WBC 0-5 SEEN Normal 0-5 [facility] Comment on above: Order Comment: CLEAN CATCH Performed By: #### L 400.0001, L501.0900, L501.5500 ####[facility] [address] [place], [address] BACTERIA 0 SEEN Normal None Seen [facility] Comment on above: Order Comment: CLEAN CATCH Performed By: #### L 400.0001, L501.0900, L501.5500 ####[facility] [address] [place], [address] EPI,SQUAMOUS 0 SEEN Normal 0-5 [facility] Comment on above: Order Comment: CLEAN CATCH Performed By: #### L 400.0001, L501.0900, L501.5500 ####[facility] [address] [place], [address] BACTERIA Normal None Seen [facility] Comment on above: Order Comment: ROXANA TER SPECIMEN Result Comment: DUPL ICATE ORDER Performed By: #### L 400.0001 ####[facility] [address] [place], [address] BILIRUBIN URINE Normal Negative [facility] Comment on above: Order Comment: ROXANA TER SPECIMEN Result Comment: DUPL ICATE ORDER Performed By: #### L 400.0001 ####[facility] [address] [place], [address] Clarity (U) Normal Clear [facility] Comment on above: Order Comment: ROXANA TER SPECIMEN Result Comment: DUPL ICATE ORDER Performed By: #### L 400.0001 ####[facility] [address] [place], [address] Color (U) Normal Yellow [facility] Comment on above: Order Comment: ROXANA TER SPECIMEN Result Comment: DUPL ICATE ORDER Performed By: #### L 400.0001 ####[facility] [address] [place], [address] EPI,SQUAMOUS Normal 0-5 [facility] Comment on above: Order Comment: ROXANA TER SPECIMEN Result Comment: DUPL ICATE ORDER Performed By: #### L 400.0001 ####[facility] [address] [place], [address] GLUCOSE, UR Normal Normal [facility] Comment on above: Order Comment: ROXANA TER SPECIMEN Result Comment: DUPL ICATE ORDER Performed By: #### L 400.0001 ####[facility] [address] [place], [address] KETONE UR Normal Negative [facility] Comment on above: Order Comment: ROXANA TER SPECIMEN Result Comment: DUPL ICATE ORDER Performed By: #### L 400.0001 ####[facility] [address] [place], [address] LEUK ESTERASE Normal Negative [facility] Comment on above: Order Comment: ROXANA TER SPECIMEN Result Comment: DUPL ICATE ORDER Performed By: #### L 400.0001 ####[facility] [address] [place], [address] Mucus Ql (Urine sed) Normal [facility] Comment on above: Order Comment: ROXANA TER SPECIMEN Result Comment: DUPL ICATE ORDER Performed By: #### L 400.0001 ####[facility] [address] [place], [address] Nitrite Ql (U) Normal Negative [facility] Comment on above: Order Comment: ROXANA TER SPECIMEN Result Comment: DUPL ICATE ORDER Performed By: #### L 400.0001 ####[facility] [address] [place], [address] OCCULT BLOOD-UR Normal Negative [facility] Comment on above: Order Comment: ROXANA TER SPECIMEN Result Comment: DUPL ICATE ORDER Performed By: #### L 400.0001 ####[facility] [address] [place], [address] pH UR Normal 5.0 - 8.0 [facility] Comment on above: Order Comment: ROXANA TER SPECIMEN Result Comment: DUPL ICATE ORDER Performed By: #### L 400.0001 ####[facility] [address] [place], [address] PROT DIPSTX Normal Negative [facility] Comment on above: Order Comment: ROXANA TER SPECIMEN Result Comment: DUPL ICATE ORDER Performed By: #### L 400.0001 ####[facility] [address] [place], [address] RBC Normal 0-5 [facility] Comment on above: Order Comment: ROXANA TER SPECIMEN Result Comment: DUPL ICATE ORDER Performed By: #### L 400.0001 ####[facility] [address] [place], [address] SP.GR. DIPSTX Normal 1.002-1.03 0 [facility] Comment on above: Order Comment: ROXANA TER SPECIMEN Result Comment: DUPL ICATE ORDER Performed By: #### L 400.0001 ####[facility] [address] [place], [address] UR Preservative Normal [facility] Comment on above: Order Comment: ROXANA TER SPECIMEN Result Comment: DUPL ICATE ORDER Performed By: #### L 400.0001 ####[facility] [address] [place], [address] UROBILI Normal Normal [facility] Comment on above: Order Comment: ROXANA TER SPECIMEN Result Comment: DUPL ICATE ORDER Performed By: #### L 400.0001 ####[facility] [address] [place], [address] WBC Normal 0-5 [facility] Comment on above: Order Comment: ROXANA TER SPECIMEN Result Comment: DUPL ICATE ORDER Performed By: #### L 400.0001 ####[facility] [address] [place], [address] Urine Sodiumon 09-15-2023 Sodium (U) [Moles/Vol] 16 mmol/L Normal Not Establ. [facility] Comment on above: Performed By: #### L 400.0001, L501.0900, L501.5500 ####[facility] [address] [place], [address] Urine blood detectionOrdered By: Rod Castellanos on 09-15-2023 RBC Ql (U) 150 /ul Negative [facility] Urine clarityOrdered By: Terri Castellanos on 09-15-2023 Clarity (U) Clear Clear [facility] Urine color determinationOrd ered By: Rod Castellanos on 09-15-2023 Color (U) Yellow Yellow [facility] Urine creatinine measurement (mass/volume)Ordered By: Rod Castellanos on 09-15-2023 Creatinine (U) [Mass/Vol] 427.00 mg/dL NO RANGE EST. [facility] Urine glucose detectionOrder ed By: Rod Castellanos on 09-15-2023 Glucose Ql (U) Normal mg/dl Normal [facility] Urine leukocyte esterase det ection by dipstickOrdered By: Rod Castellanos on 09-15-2023 Leukocyte esterase Test strip Ql (U) 25 /ul Negative [facility] Urine pHOrdered By: Alissa Castellanos on 09-15-2023 pH (U) 5.0 [pH] 5.0 - 8.0 [facility] Urine protein/creatinine mas s ratioOrdered By: Rod Castlelanos on 09-15-2023 Protein/Creatinine (U) [Mass ratio] 84 mg/g CRE 0-200 [facility] Urine sediment bacteria coun t by microscopy (number/high power field)Ordered By: Rod Castellanos on 09-15-2023 Bacteria LM.HPF (Urine sed) [#/Area] 0 /[HPF] None Seen [facility] Urine specific gravity measu rementOrdered By: Rod Castellanos on 09-15-2023 Specific gravity (U) [Rel density] 1.025 1.002-1.03 0 [facility] Urine urobilinogen measureme ntOrdered By: Rod Castellanos on 09-15-2023 Urobilinogen Ql (U) 4 mg/dl Normal [facility] Whole blood hemoglobin A1c/t otal hemoglobin ratio (mass fraction)Ordered By: Rod Castellanos on 09-15-2023 HbA1c (Bld) [Mass fraction] 5.8 % 3.8-5.6 [facility] Comment on above: Normal < 5.7 % Predi abetic 5.7 - 6.4 % Diabetic >or= 6.5 % Please note range changes. CNPNon 09-25-2020 [facility] MARC[facility] TURCIOS ([id number]) 1960 M Date Time Provider Department 09/25/20 MICHELLE TRAMMELL During your visit today, we recorded the following information about you: Odilia Barone Ma 09/25/2020 8:08 AM Signed [facility]. See form, if able to complete fax to [phone]. FYI: Pt has not been seen in office since 07/20/19 at which time we saw him only for hospital follow up. Last visit prior to that was 12/22/2017. These office visits did not mention or discuss pt's need for CPAP or his use of CPAP. Odilia Trammell MD 09/25/2020 12:36 PM Signed Since I have not seen him I am not able to complete the forms. He would need an appt; I am not sure if he is seeing someone else now? MD Belgica Moy MA 09/25/2020 1:05 PM Signed Please see message from Care Everywhere. Pt is no longer following with this office. PCP changed. Looks like PCP in ER records notes he's seeing Lola Cartagena. Can we fax back and let them know to contact pt's PCP? Belgica Barone Ma 09/25/2020 3:21 PM Signed Form faxed back to [facility] notifying them that this pt is now following with Dr. Lola Cartagena. Odilia Barone Ma Allergies As of Date: 09/25/2020 Noted Allergy Reaction ANTIDEPRESSANTS (TRICYCLIC COMPOU*04/23/2017 14 - Other: See Comments Comments: WORKS OPPOSITE CODEINE 04/29/2005 4 - Hives IVP DYE (IODINE) 04/29/2005 16 - Unknown Comments: inflamed like a sunburn RITALIN (METHYLPHENIDATE) 11/22/2015 14 - Other: See Comments Comments: Bad reaction Date Reviewed: 07/20/2019 Reviewed by: Odilia Barone Ma - Fully Assessed Reason for Visit: Forms [913] Cmt: Buck-PAP supplies Prescriptions as of 09/25/2020 Sig: LORAZEPAM 1 MG TABLET Take 1 tablet by mouth every * BUDESONIDE-FORMOTEROL HFA 160* Inhale 2 Puffs as instructed * RANITIDINE 150 MG TABLET Take 1 tablet by mouth twice * ALBUTEROL SULFATE 2.5 MG/3 ML* Use 3 mL via nebulizer every * Problem List As Of Date 09/25/2020 Noted Resolved DEPRESS PSYCHOSIS-UNSPEC [F32.9] ESOPHAGEAL REFLUX [K21.9] Sleep apnea [G47.30] MORBID OBESITY [E66.01] POSTTRAUMATIC STRESS DISORDER [F43.10] CERVICALGIA [M54.2] 07/23/2006 Smoker [F17.200] 01/21/2010 COPD (Chronic Obstructive Pulmonary Disease) [J*01/21/2010 Panic anxiety syndrome [F41.0] 07/26/2010 Achilles bursitis or tendinitis [M76.60] 04/08/2012 Screening for colon cancer [Z12.11] 04/15/2017 Incisional hernia [K43.2] 04/15/2017 Encounter Status:Closed by ODILIA BARONE MA on 09/25/20 Normal [facility] .CRYBF Path Reviewon 020 CRYPF Path Review Rare crystals consis tent with calcium pyrophosphate are present. [facility] ([place]) Comment on above: Result Comment: Elec tronically signed by: RIGOBERTO ARNOLD 07.11.2019 11:59 EST Performed By: #### C ANT CRYBFPR #### [address] [address] #### SYNCT #### [address] [address] CRYBFon 07-08-2019 Crystal BF Sp Synovial fluid [facility] ([place]) Comment on above: Performed By: #### C ANT CRYBFPR #### [place] [address] #### SYNCT #### [address] [address] SYNCTon 07-08-2019 Cells Counted (synovial) 100 Normal [facility] ([place]) Comment on above: Performed By: #### C RYBF, CRYBFPR #### [place] [address] #### SYNCT #### [address] [address] Eosinophils/100 WBC (Bld) 1 % Normal [facility] ([place]) Comment on above: Performed By: #### C RYBF, CRYBFPR #### [place] [address] #### SYNCT #### [address] [address] Lymphocytes/100 WBC (Bld) 24 % Normal [facility] ([place]) Comment on above: Performed By: #### C RYBF, CRYBFPR #### [place] [address] #### SYNCT #### [address] [address] Mononuclear Cell % (synovial) 58 % Normal [facility] ([place]) Comment on above: Performed By: #### C RYBF, CRYBFPR #### [place] [address] #### SYNCT #### [address] [address] Neutrophils/100 WBC (Bld) 17 % Normal 0-24 [facility] ([place]) Comment on above: Performed By: #### C RYBF, CRYBFPR #### [place] [address] #### SYNCT #### [address] [address] Clarity (U) Slightly Bloody Normal [facility] ([place]) Comment on above: Performed By: #### C RYBF, CRYBFPR #### [place] [address] #### SYNCT #### [address] [address] Color (U) Yellow Normal [facility] ([place]) Comment on above: Performed By: #### C RYCHELSEA, CRYBFPR #### [place] [address] #### SYNCT #### [place] [id number] White Blood Cells (synovial) 200 /mm3 High 0-199 [facility] ([place] Comment on above: Performed By: #### C ANT, CRYBFPR #### [place] [address] #### SYNCT #### [address] [address] .Urinalysis Microscopic (AO) on 02-28-2019 RBC (U) [#/Vol] 5-10 None Seen [facility] ([place] Comment on above: Performed By: #### U A, UAMICAO #### [place] [address] UA Mucous Trace Normal [facility] ([place]) Comment on above: Performed By: #### U A, UAMICAO #### [place] [address] UA Squam Epithelial 0-5 None Seen [facility] ([place]) Comment on above: Performed By: #### U A, UAMICAO #### [place] [address] UA WBC 0-5 None Seen [facility] ([place] Comment on above: Performed By: #### U A, UAMICAO #### [place] [id number] UAon 02-28-2019 Color (U) Yellow Normal [facility] ([place] Comment on above: Performed By: #### U A, UAMICAO #### [place] [address] Glucose (U) [Mass/Vol] Negative Normal Negative [facility] ([place]) Comment on above: Performed By: #### U A, UAMICAO #### [place] [address] Ketones Ql (U) Negative Normal Negative [facility] ([place] Comment on above: Performed By: #### U A, UAMICAO #### [place] [address] UA Appear Clear Normal Clear [facility] ([place] Comment on above: Performed By: #### U A, UAMICAO #### [place] [address] UA Blood Moderate Negative [facility] ([place] Comment on above: Performed By: #### U A, UAMICAO #### [place] [address] UA Leuk Est Negative Normal Negative [facility] ([place] Comment on above: Performed By: #### U A, UAMICAO #### [place] [address] UA Nitrite Negative Normal Negative [facility] ([place] Comment on above: Performed By: #### U A, UAMICAO #### [place] [address] UA pH 6.0 Normal 5.0 - 8.0 [facility] ([place]) Comment on above: Performed By: #### U A, UAMICAO #### [place] [address] UA Protein Trace Normal Negative [facility] ([place] Comment on above: Performed By: #### U A, UAMICAO #### [place] [address] UA Spec Grav 1.025 Normal 1.015-1.02 5 [facility] ([place]) Comment on above: Performed By: #### U A, UAMICAO #### [place] [address] UA Specimen Type Clean Catch Normal [facility] ([place]) Comment on above: Performed By: #### U A, UAMICAO #### [place] [address] UA Urobilinogen 0.2 E.U./dL Normal 0.2-1.0 [facility] ([place]) Comment on above: Performed By: #### U A, UAMICAO #### [facility] [address] [place] [address] Urobilinogen Qn (U) Negative Normal Negative [facility] ([place]) Comment on above: Performed By: #### U A, UAMICAO #### [facility] [address] [place], [place] [id number] ANES Carmel 05-26-2017 ANES POST HNO ID: [id number] thor: Denise Ruvalcabaervice: AnesthesiologyAuthor Type: AnesthesiologistType: Anesthesia PostOpFiled: 05/26/2017 1:30 PMNote Text:POST ANESTHESIA EVALUATION NOTESERVICE DATE: 05/26/2017SERVICE TIME: 1:30 PMDOB: 1960Vitals: 05/26/1711Temp: 37 ?C (98.6 ?F) 36.7 ?C (98.1 ?F) 36.4 ?C (97.5 ?F) 05/26/1712P: 118/67 120/67 122/65 112/61 05/26/1712Pulse: 84 82 84 83 05/26/1712Resp: 16 16 16 16 05/26/1712SpO2: 96% 97% 94% 98%Validated Vital Signs: YesPOST ANES STATUS: No apparent anesthetic complications. The patient isappropriately hydrated with stable respiratory and cardiovascular status.Patient has safe and adequate airway control. The patient has appropriatepain relief and no significant post operative nausea or vomiting. Thepatient has achieved baseline mental status.Further assessment by Anesthesia Service: NoneOther Remarks:SIGNATURE: Denise Arcos MD PATIENT NAME: Marcel TurciosDATE: May 26, 2017 : 1:29 PM PAGER/CONTACT #: [phone] [facility] ANE PREOPon 05-26-2017 ANES PREOP HNO ID: [id number] thor: Denise Ruvalcabaervice: AnesthesiologyAuthor Type: AnesthesiologistType: Anesthesia PreOpFiled: 05/26/2017 8:44 AMNote Text: ANESTHESIOLOGY DAY OF SURGERY NOTESERVICE DATE: 05/26/2017SERVICE TIME: 8:43 AMDOB: 1960Procedure(s) (LRB):LAPAROSCOPIC HERNIORRHAPHY INCISIONAL W/ MESH FOR STRANGULATED /INCARCERATED INCISIONAL HERNIA (N/A)Surgeon(s):Cecilia ShelbyanEstimated body mass index is 40.9 kg/(m2) as calculated from thefollowing: Height as of 04/26/17: 185.4 cm (6' 1). Weight as of 04/26/17: 140.6 kg (310 lb).Most recent hematocrit and potassium results:Potassium 4.5 08/06/2015ANES DOS/PREOP NOTE:Vitals: 204333CL: 138/83Pulse: 94Resp: 18Temp: 37 ?C (98.6 ?F)TempSrc: Temporal ArterySpO2: 96%ACTIVE PROBLEM LISTMajor Depressive Disorder, Single Episode, UnspecifiedEsophageal RefluxSleep ApneaMorbid Obesity (Hcc)Posttraumatic Stress DisorderCervicalgiaSmokerCop d (Chronic Obstructive Pulmonary Disease) (Hcc)Panic Anxiety SyndromeAchilles Bursitis Or TendinitisScreening for Colon CancerIncisional HerniaPAST MEDICAL HISTORYDiagnosis Date- Ankylosis of lower leg joint- Chronic obstructive asthma, unspecified- Depressive disorder, not elsewhere classified- Esophageal reflux- Morbid obesity (HCC)- Panic anxiety syndrome 07/26/2010- Posttraumatic stress disorder- Unspecified sleep apneaPAST SURGICAL HISTORYProcedure Laterality Date- APPENDECTOMY 1979- COLONOSCOP W/ OR W/O BRSH SPEC 04/26/2017 Colonoscopy- LEFT HEART CATH,PERCUTANEOUS 2001- REPAIR CRUCIATE LIGAMENT,KNEE bilateral and multipleFAMILY HISTORYProblem Relation Age of Onset- Coronary Artery Disease Father s/p CABG, stents, defibSocial History:Social HistorySubstance Use Topics- Smoking status: Current Some Day Smoker Packs/day: 0.75 Years: 24.00 Types: Cigars Last attempt to quit: 11/08/2015- Smokeless tobacco: Not on file Comment: Cigar's, doesn't inhale- Alcohol use Yes Comment: very littleNo current facility-administered medications on file prior to encounter.Current Outpatient Prescriptions on File Prior to Encounter:LORazepam (ATIVAN) 1 mg tablet Take 1 tablet by mouth every 8 hours asneeded for Anxiety.budesonide-formotero l (SYMBICORT) 160-4.5 mcg/actuation inhaler Inhale 2Puffs as instructed twice daily.ranitidine (ZANTAC) 150 mg tablet Take 1 tablet by mouth twice daily.albuterol (PROVENTIL) 2.5 mg /3 mL (0.083 %) nebulizer solution Use 3 mLvia nebulizer every 6 hours as needed for Wheezing/Shortness of Breath. 1vial contains 3 ml.Current Facility-Administered Medications:lactated ringers infusion 30 mL/hr INTRAVENOUS CONTINUOUS Cecilia TGuttman Last Rate: 30 mL/hr at 05/26/17 0816 30 mL/hr at 05/26/17 0816ceFAZolin 3 g in sterile water 30 mL (ANCEF) 3 g INTRAVENOUS Pre-Op OnceRichard T GuttmanAllergies:ALLERGIESAl lergen Reactions- Antidepressants [Tr* Other: See Comments WORKS OPPOSITE- Codeine Hives- Ivp Dye [Iodine] Unknown inflamed like a sunburn- Ritalin [Methylphen* Other: See Comments Bad reactionDOS EXAM: Adequate NPO Status: YesAnesthetic Risks, Benefits, Alternatives, Personnel and Consent Discussed:YesPatient agrees to proceed: YesPrevious Anesthesia: No history of adverse eventAirway Assessment: MP 2; Neck ROM: Full ROM without neurologic symptoms;Airway Evaluation: Short Neck and Leigh PresentSymptoms of Sleep Apnea: Sleep apnea (+)Dentition: Multiple missing teethAdditional Physical Exam:Lungs: Patient health status unchanged since recent history and physical.See history and physical for exam findings.Cardiac: Patient health status unchanged since recent history andphysical. See history and physical for exam findings.Additional Pertinent Findings: N/ABlood Products: Not anticipated for this procedureAnesthetic Plan: GeneralAnesthetic Monitoring: Standard ASA MonitorsPain Management Plan: Parenteral or OralASA Class: 3Other Medical Problems: NoneChronic Beta Ortega medication administered within 24 hours: N/AI have interviewed and examined the patient. I have reviewed the medicalrecord and/or the pre-anesthesia evaluation, pertinent labs, and testresults.Significant changes in the patient's condition since the History andPhysical, not otherwise documented in primary service progress notes: NoThis contains updated information obtained within 48 hours ofSurgery/Procedure.SIGNATUR E: Denise Arcso MD PATIENT NAME: Marcel TurciosDATE: May 26, 2017 : 8:43 AM CSN: [id number] [facility] BRIEF OP NOTon 05-26-2017 BRIEF OP NOT HNO ID: [id number] thor: Cecilia Stevenervice: General SurgeryAuthor Type: PhysicianType: Brief Op NoteFiled: 05/26/2017 11:34 AMNote Text:BRIEF OPERATIVE NOTATION FOR SURGICAL PROCEDURE.Marcel Turcios 1960 [id number] maleLOG ID: [id number]/Procedure Date: 05/26/2017Incision/Procedure Start Time: 10:22 AMIncision Close/Procedure End Time: 11:28 AMSurgeon(s)/Proceduralist(s ) and Medical Lab Technologist(s):Surgeon(s) and Role: * Cecilia Crisostomo - PrimaryRegistered Nurse Qa Engineer: Krissy Tang RNREFERRING PHYSICIAN:OutpatientDEPT: WPatti PROVIDER: Volodymyr POS:[id number] : GeneralASA CLASS: 3 - SevereDIAGNOSIS: right inguinal herniaPROCEDURE: laparoscopic right inguinal hernia repair with mesh - 22683-151ZWB: 1700EBL: 20URINE - 200Specimens: noneADDITIONAL DIAGNOSES:FINDINGS: indirect RIHCOMPLICATIONS: NonePMHx -PAST MEDICAL HISTORYDiagnosis Date- Ankylosis of lower leg joint- Chronic obstructive asthma, unspecified- Depressive disorder, not elsewhere classified- Esophageal reflux- Morbid obesity (HCC)- Panic anxiety syndrome 07/26/2010- Posttraumatic stress disorder- Unspecified sleep apneaCOMORBIDITIES - ObesityPost Op Occurrences - NoneWound Classification - CleanOperative note dictated in the dictation system.- [id number] Crisostomo MD [facility] NURSING PROGon 05-26-2017 NURSING PROG HNO ID: [id number] thor: Rosana (Rn) Cammy Coradoice: (none)Author Type: Registered NurseType: Nursing Progress NoteFiled: 05/26/2017 12:34 PMNote Text: Nursing Progress NotePatient Name: Marcel TurciosMRN: [id number] Location: CT Surgery/CT Surgery Pt offered a snack and a Vicodin but refuses. The pill is worse than howmuch it helps. Don't think about giving me that. Pt eating ice chips,joking asking staff if he can have an ice cream sund. Resp status hasimproved. Wheezing has lessened and improved air entry noted. Skin pink,warm and dry. Pt on room air and pulse ox 93% at this time.This note was completed by: Rosana Corado RN [facility] NURSING PROG HNO ID: [id number] thor: Rosana (Rn) WESLEY Coradoervice: (none)Author Type: Registered NurseType: Nursing Progress NoteFiled: 05/26/2017 12:26 PMNote Text: Nursing Progress NotePatient Name: Marcel Michaels [facility]: [id number] Location: CT Surgery/ME Surgery Pt states, Pain is all in the mind and I don't want any more IV meds. Noway. Pt encouraged to be comfortable but continues to decline meds.Joking and laughing with all staff. 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 Wide awake. 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 Pulse ox stable with SFM. Dr. Arcos aware. Ptrepositioned with multiple staff and wheezes continue. MD states she willorder treatment. Respiratory paged and awaiting tech. Pt states pain a10/10. No grimacing, smiling. Asking nurse if she is and joking. Skin warm and dry. Abd assessment benign. Lab sites x 3 without activebleeding.This note was completed by: Rosana Corado RN [facility] OPERATIVE NOon 05-26-2017 OPERATIVE NO HNO ID: [id number] thor: Cecilia Stevenervice: General SurgeryAuthor Type: PhysicianType: Operative ReportFiled: 05/27/2017 6:58 AMNote Text:[facility]- Operative ReportMOSEMARCEL StDOB: 1960 AGE: 56 SEX: MMRN: [id number] ACCTNUM: [id number] SVC: GENS LOCATION: [id number] PHYSICIAN: Cecilia Crisostomo M.D.DATE OF PROCEDURE: 05/26/2017SURGEON: Cecilia Crisostomo M.D.WEB OPERATIONS SPECIALIST: NONEANESTHESIA: Endotracheal.PREOPERATIVE DIAGNOSIS(ES): Right lower quadrant pain. Question of right inguinal hernia versus incisional hernia.POSTOPERATIVE DIAGNOSIS(ES): Indirect right inguinal hernia.NAME OF OPERATION: Laparoscopic right inguinal hernia repair with meshusing a Bard 3DMax large size mesh, reference #[id number], lot number [id number], expires 02/22/2021.INDICATIONS:ESTIM ATED BLOOD LOSS: 20 mL.COMPLICATIONS: None.The patient was taken to PACU in stable condition. SPECIMENS: None.URINE OUTPUT: 200 mL, urine is clear.START TIME: 1022.END TIME: 1128.ANESTHESIOLOGIST: Dr. Arcos.ASA: 3.INTRAVENOUS FLUIDS: 1700 mL.FINDINGS: As described above.PROCEDURE: The patient's right inguinal and previous right lower quadrant appendectomy incisions were marked. The patient felt he had discomfortin his right inguinal area. There was a question of hernia at theprevious appendectomy incision site, although CT scan 3 timesdemonstrated no true hernia. The patient was brought to the operativesuite. Sign-in was performed verifying patient, site, procedure,physician, critical nursing, VTE and antibiotic prophylaxis. The patientreceived 3 grams of Ancef and sequential compression device was placed.Following induction of general, Tucker catheter was placed. Abdomen wasprepped and draped in usual fashion. Time-out was performed verifyingpatient, site, procedure, physician. Local anesthetic injected above theumbilicus. Incision made, dissection carried down to the fascia, 2 staysutures were placed on the fascia. Incision was made to fascia of theperitoneum under direct visualization, Newton trocar was inserted througha stay suture. Pneumoperitoneum to 15 mm was insufflated. Three 5 mmports were placed in the standard position. Visual inspection revealedindirect right inguinal hernia. No direct right inguinal hernia and noprevious appendectomy incisional hernia. The peritoneum was opened.Dissection was carried out fully reducing the hernia sac and clearing thepreperitoneal structures such that the inferior epigastric vessels, thetransversus arch, Kamran's ligament, and inferolateral dissection wasclearly obtained such that the large 3DMax mesh could easily be placedinto the appropriate position. 3DMax was placed, secured with ProTackpermanent tacker to Kamran's ligament and the pubic tubercle, thenAbsorbaTack suture to the transversus arch. Following this, we had goodposition of the mesh. Following this, he peritoneum was closed with arunning 0 V-Loc 180 suture. There were noted to be adhesions of omentumaround the level of umbilicus which were taken down bluntly. Theumbilical port site was then closed with a running 1 Xygwhrhmeap-zt-varuq suture. The 5 ports under direct visualization with nosigns of bleeding. Pneumoperitoneum was released. The umbilical trocarwas removed. The supraumbilical fascia was secured. The skin was closedwith 4-0 Biosyn subcuticular suture. Steri-Strips and dressings wereapplied. The patient was brought to recovery room in stable condition.Cecilia Crisostomo M.D.General SurgeryRG:[id number]: 05/26/2017 11:34:26T: 05/26/2017 22:48:44Job #: [id number] [facility] PLAN OF CAREon 05-26-2017 PLAN OF CARE HNO ID: [id number] thor: Cassandra Kicthen (Breast Buffer)Service: (none)Author Type: TechnicianType: Plan of CareFiled: 05/26/2017 12:25 PMNote Text:GEOTHERMAL FIELD TECHNICIAN BEDSIDE DELIVERY SURVEY1. Patient to use [facility] Bedside Delivery - YES2. If fax, patient would like us to fax prescriptions to [facility] a. Pharmacy: b. Location: c. Phone:3. Insurance card on file - YES4. Credit card for payment - YESPHARMACY BEDSIDE DELIVERY SERVICEPatient Name: Marcel TurciosN: [id number] marked outpatient medications were Filled at: [place] and delivered tothe patient's bedside to pharm p/uMedication ListSTART taking these medications oxyCODONE-acetaminophen 5-325 mg tabletCommonly known as: PERCOCETTake 1 tablet by mouth every 4 hours as needed for Pain.CONTINUE taking these medications albuterol 2.5 mg /3 mL (0.083 %) nebulizer solutionCommonly known as: PROVENTILUse 3 mL via nebulizer every 6 hours as needed for Wheezing/Shortness ofBreath. 1 vial contains 3 ml. budesonide-formoterol 160-4.5 mcg/actuation inhalerCommonly known as: SYMBICORTInhale 2 Puffs as instructed twice daily. dextroamphetamine-amphetamin e 10 mg tabletCommonly known as: ADDERALLTake 1 tablet by mouth four times daily. LORazepam 1 mg tabletCommonly known as: ATIVANTake 1 tablet by mouth every 8 hours as needed for Anxiety. ranitidine 150 mg tabletCommonly known as: ZANTACTake 1 tablet by mouth twice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 chronic post operative pain. My staff has also explained the procedurein understandable terms and the patient was given the option to take printedmaterial concerning the planned procedure. The patient had the opportunity toask questions concerning the planned procedure. The patient freely consents tothe planned procedure.All tobacco/nicotine use needs to be completely stopped at least 4 weeks priorto surgery and not used in any form for 8 weeks following surgery due tonicotine's prevention of appropriate wound healingI plan to perform colonoscopy within the next 2 weeks to assess for treatablecauses for his constipation prior to hernia repair. We discussed the risks andbenefits of the planned endoscopy. I have informed the patient thatcomplications can occur including failure to complete the endoscopy andperforation. The patient had the opportunity to ask questions concerning theplanned endoscopy. My staff has also explained the procedure to the patient inunderstandable terms and has given the patient printed material concerning theprocedure. The patient freely consents to surgery.My findings have been communicated to Dr. Michelle Trammell MD via sharedmedical record. This note will be forwarded to Dr. Michelle Trammell MD.Diagnoses: (R19.4) Change in bowel habits (primary encounter diagnosis)(K59.00) Constipation, unspecified constipation type(R10.31) RLQ abdominal pain(K43.2) Incisional hernia, without obstruction or gangreneAnticipated CPT Code: laparoscopic right inguinal hernia repair with mesh -[id number] Anesthetic: GeneralPatient weight: Blood pressure 158/94, pulse 106. BMI: There is no heightor weight on file to calculate BMI.Planned antibiotic: Ancef 3gm IVPB aviation technical systems specialist to ORSCDs needed - YesReturn to Clinic: The patient is instructed to follow-up with me for endoscopyin 10 days. Cecilia Crisostomo MD [facility] HOSP Patient:Yvan Turcios JMRN: Height:6' 1(1.854 m)Weight:No patient weight recorded within the last 30 days.Outpatient Medications as of 05/26/17:dextroamphetamine-a mphetamine (ADDERALL) 10 mg tabletLORazepam (ATIVAN) 1 mg tabletranitidine (ZANTAC) 150 mg tabletalbuterol (PROVENTIL) 2.5 mg /3 mL (0.083 %) nebulizer solutionbudesonide-formotero l (SYMBICORT) 160-4.5 mcg/actuation inhalerAdmission/Clinic Administered Medications as of 05/26/17:lactated ringers infusionceFAZolin 3 g in sterile water 30 mL (ANCEF)Problem List:Major depressive disorder, single episode, unspecified [F32.9]Esophageal reflux [K21.9]Sleep apnea [G47.30]Morbid obesity (HCC) [E66.01]Posttraumatic stress disorder [F43.10]Cervicalgia [M54.2]Smoker [F17.200]COPD (chronic obstructive pulmonary disease) ([facility]) [J44.9]Panic anxiety syndrome [F41.0]Achilles bursitis or tendinitis [M76.60]Screening for colon cancer [Z12.11]Incisional hernia [K43.2]Allergies:Antidepress ants [Tricyclic Compounds]CodeineIvp Dye [Iodine]Ritalin [Methylphenidate]Date Verified: 05/26/17Lab ValuesNo results within the last 30 days for the following basenames: K,HCTProgress Notes ([facility]):Heather Hilliard 05/18/2017 1:08 PM SignedPatient has been identified by name and date of : YesRX INSTRUCTIONS:Print and leave at the Medical records senior front end developer. No need to notify patient.Heather Gutiérrez PsrOdilia Baroen Ma 05/18/2017 1:51 PM SignedPatient has tried contacting the office a few times and is unable to getthrough. Conversation below was cut off and he stopped in the office due tobeing in the middle of moving and his car broke down. 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 Waiting in the waiting room currently.Odilia Bose CNP, SHIPPING AND RECEIVING ASSISTANT 05/18/2017 1:56 PM SignedOk to fill.Approved. Handed to patient.OARRS website checked and validated. All prescriptions have been APPROPRIATELYfilled. No suspicious activity was identified.- 05/18/2017 by Gideon Bose CNP [facility] Vital Signs Date Time Vital Sign Value Performing Clinician Facility 12-08-2024 16:44-0400 Body temperature 98.4 [degF] Dr. Jose David Sims MD Work Phone: 6(776)006-888696 [place] [address] 12-08-2024 16:44-0400 Diastolic blood pressure 117 mm[Hg] Dr. Jose David Sims MD Work Phone: 3(146)416-451196 [place] [address] 12-08-2024 16:44-0400 Heart rate 107 /min Dr. Jose David Sims MD Work Phone: 1(634)507-952696 [place] [address] 12-08-2024 16:44-0400 Inhaled oxygen flow rate 2 L/min Dr. Jose David Sims MD Work Phone: 4(011)445-471696 [place] [address] 12-08-2024 16:44-0400 Respiratory rate 20 /min Dr. Jose David Sims MD Work Phone: 9(518)459-683596 [place] [address] 12-08-2024 16:44-0400 SaO2% (BldA) [Mass fraction] 96 % Dr. Jose David Sims MD Work Phone: 6(082)501-263396 [place] [address] 12-08-2024 16:44-0400 Systolic blood pressure 181 mm[Hg] Dr. Jose David Sims MD Work Phone: 0(728)562-236096 [place] [address] 12-08-2024 16:40-0400 Body height 185.[address] Jose David Sims MD Work Phone: 9(990)031-399096 [place] [address] 12-08-2024 16:40-0400 Body mass index (BMI) [Ratio] 49.4 kg/m2 Dr. Jose David Sims MD Work Phone: 9(483)721-163496 [place] [address] 12-08-2024 16:40-0400 Body weight 169.[address] Jose David Sims MD Work Phone: 6(655)127-945096 [place] [address] 12-08-2024 16:28-0400 Body temperature 97.9 [degF] Dr. Jose David Sims MD Work Phone: 2(871)016-323796 [place] [address] 12-08-2024 16:28-0400 Diastolic blood pressure 89 mm[Hg] Dr. Jose David Sims MD Work Phone: [facility] 12-08-2024 16:28-0400 Heart rate 103 /min Dr. Jose David Sims MD Work Phone: [facility] 12-08-2024 16:28-0400 Respiratory rate 19 /min Dr. Jose David Sims MD Work Phone: [facility] 12-08-2024 16:28-0400 SaO2% (BldA) [Mass fraction] 93 % Dr. Jose David Sims MD Work Phone: [facility] 12-08-2024 16:28-0400 Systolic blood pressure 139 mm[Hg] Dr. Jose David Sims MD Work Phone: [facility] 12-08-2024 15:25-0400 Inhaled oxygen concentration 21 % Dr. Jose David Sims MD Work Phone: [facility] 12-08-2024 12:00-0400 Body mass index (BMI) [Ratio] 49.9 kg/m2 Dr. Jose David Sims MD Work Phone: [facility] 12-08-2024 12:00-0400 Body weight 171.[address] Jose David Sims MD Work Phone: [facility] 12-08-2024 11:59-0400 Body height 185.[address] Jose David Sims MD Work Phone: [facility] 09-16-2023 14:08-0400 Body temperature 98.1 [degF] No Primary Care Physician [facility] 09-16-2023 14:08-0400 Diastolic blood pressure 98 mm[Hg] No Primary Care Physician [facility] 09-16-2023 14:08-0400 Heart rate 87 /min No Primary Care Physician [facility] 09-16-2023 14:08-0400 Respiratory rate 18 /min No Primary Care Physician [facility] 09-16-2023 14:08-0400 SaO2% (BldA) [Mass fraction] 94 % No Primary Care Physician [facility] 09-16-2023 14:08-0400 Systolic blood pressure 153 mm[Hg] No Primary Care Physician [facility] 09-16-2023 12:15-0400 Body height 185.42 cm No Primary Care Physician [facility] 09-16-2023 12:15-0400 Body weight 164.38 kg No Primary Care Physician [facility] 09-16-2023 08:03-0400 Inhaled oxygen flow rate 2 L/min No Primary Care Physician [facility] 09-15-2023 16:53-0400 Body mass index (BMI) [Ratio] 47.8 kg/m2 No Primary Care Physician [facility] 09-15-2023 16:00-0400 Body temperature 97.4 [degF] [facility] 09-15-2023 16:00-0400 Diastolic blood pressure 73 mm[Hg] [facility] 09-15-2023 16:00-0400 Heart rate 98 /min [facility] 09-15-2023 16:00-0400 Respiratory rate 24 /min [facility] 09-15-2023 16:00-0400 SaO2% (BldA) [Mass fraction] 98 % [facility] 09-15-2023 16:00-0400 Systolic blood pressure 128 mm[Hg] [facility] 09-15-2023 14:00-0400 Inhaled oxygen flow rate 2 L/min [facility] 09-15-2023 11:34-0400 Body mass index (BMI) [Ratio] 41.9 kg/m2 [facility] 09-15-2023 11:34-0400 Body weight 144.3 kg [facility] 09-15-2023 11:19-0400 Body height 185.42 cm [facility] Encounters Encounter Date Encounter Type Care Provider Facility Start: 12-08-2024 End: 12-08-2024 Evaluation and management of inpatient Dr. Mis Edmondson MD -Progressive Care Unit Work Phone: Start: 12-07-[address] Jose David Sims MD -Laboratory [facility] Start: 09-16-2023 Non-patient / Non-visit [facility] Work Phone: Start: 09-15-2023 ambulatory No Primary Car e Physician Facility:[facility] Start: 09-15-2023 ambulatory No Primary Car e Physician Facility:[facility] Start: 09-15-2023 End: 09-16-2023 Evaluation and management of inpatient No Primary Care Physician Facility:[facility] Start: 09-15-2023 Non-patient / Non-visit No [facility] Start: 09-15-2023 End: 09-16-2023 Evaluation and management of inpatient [facility]-Progressive Care Unit Work Phone: Start: 05-26-2017 End: 05-26-2017 Ambulatory [facility] Start: 04-26-2017 End: 04-26-2017 [facility] Procedures Date Procedure Procedure Detail Performing Clinician Start: 12-08-2024 X-ray of chest, PA a nd lateral views Dr. Jose David Sims MD Work Phone: Start: 12-08-2024 D-dimer assay, quantitative Dr. Jose David Sims MD Work Phone: Comment on above: NORMAL D-Dimer level (<0.50) indicates no DVT or PE. Start: 12-08-[address] Jose David Sims MD Work Phone: Start: 09-15-2023 Plain chest X-ray Plan of Treatment Date Care Activity Detail Author Start: 12-08-2024 Oxygen therapy [facility] Start: 12-08-2024 Assessment of risk o f venous thromboembolism [facility] Start: 12-08-2024 Insertion of cathete r into peripheral vein [facility] Start: 12-08-2024 [facility]as[facility] intake and output [facility] [place] Start: 12-08-2024 Providing care accor ding to standard [facility] Start: 12-08-2024 Provision of activit y privileges [facility] Start: 12-08-2024 Referral to slitter creaser slotter helper [facility] Start: 12-08-2024 Referral to occupati onal therapist [facility] Start: 12-08-2024 Referral to service [facility] Start: 12-08-2024 [facility] Start: 12-08-2024 Following clinical p athway protocol [facility] Start: 12-08-2024 Thyroid stimulating hormone measurement [facility] Start: 12-08-2024 CT of chest without contrast Chest without Contrast [facility] Start: 12-08-2024 Admission procedure [facility] Start: 12-08-2024 Hospital admission, emergency, from emergency room, medical nature [facility] Start: 12-08-2024 Continuous pulse oximetry [facility] Start: 12-08-2024 Dual pressure sponta neous ventilation support [facility] Start: 12-08-2024 [facility] Start: 12-08-2024 [facility] Start: 12-08-2024 Patient discharge [facility] Start: 12-08-2024 Patient referral to dietitian [facility] Start: 09-16-2023 Patient discharge [facility] Start: 09-16-2023 End: 09-16-2023 Care planning and problem solving actions [facility] Start: 09-15-2023 Following clinical p athway protocol [facility] Start: 09-15-2023 Ambulation without limitation [facility] Start: 09-15-2023 Assessment of risk o f venous thromboembolism [facility] Start: 09-15-2023 Cardiac monitoring [facility] Start: 09-15-2023 Continuous positive airway pressure ventilation treatment [facility] Start: 09-15-2023 Incentive spirometry [facility] Start: 09-15-2023 Inhalation therapy procedure [facility] Start: 09-15-2023 Insertion of cathete r into peripheral vein [facility] Start: 09-15-2023 Oxygen therapy [facility] Start: 09-15-2023 Providing care accor ding to standard [facility] Start: 09-15-2023 Referral to slitter creaser slotter helper [facility] Start: 09-15-2023 Referral to occupati onal therapist [facility] Start: 09-15-2023 Referral to service [facility] Start: 09-15-2023 Tobacco use cessatio n education [facility] Start: 09-15-2023 [facility] Start: 09-15-2023 Hospital admission, emergency, from emergency room, medical nature [facility] Start: 09-15-2023 Protein/Creatinine [ Ratio] in Urine [facility] Start: 09-15-2023 Sodium [Moles/volume ] in Urine [facility] Start: 09-15-2023 Urinalysis complete panel - Urine [facility] Start: 09-15-2023 Admission procedure [facility] Start: 09-15-2023 Verification routine [facility] Start: 09-15-2023 Bacteria identified in Blood by Culture Blood Culture [facility] Start: 09-15-2023 End: 09-15-2023 Blood culture [facility] Start: 09-15-2023 [facility] Start: 09-15-2023 Patient referral to dietitian [facility] Bilirubin measuremen t, urine [facility] Hemoglobin [Presence ] in Urine [facility] Magnesium measurement [facility] Measurement of keton es in urine using dipstick [facility] Microscopic urinalysis [facility] Patient referral [facility] Work Phone: pH of Urine [facility] Specific gravity of Urine [facility] Troponin T.cardiac [Mass/volume] in Serum or Plasma by High sensitivity method [facility] Urinalysis, blood, qualitative [facility] Urine dipstick for glucose [facility] Urine dipstick for leukocyte esterase [facility] Urine dipstick for nitrite [facility] Urine dipstick for protein [facility] Urine examination [facility] Urine microscopy: epithelial cells [facility] Urine Microscopy: wh ite cells [facility] Urobilinogen [Presen ce] in Urine [facility] Immunizations Immunization Date Immunization Notes Care Provider Chelsea louie 04-28-2016 influenza, injectabl e, quadrivalent, preservative free No Primary Care Physician [facility] 05-21-2015 tetanus toxoid, redu maribell diphtheria toxoid, and acellular pertussis vaccine, adsorbed [facility] 04-24-2015 influenza, injectabl e, quadrivalent, preservative free No Primary Care Physician [facility] 03-15-2014 influenza, injectabl e, quadrivalent, preservative free No Primary Care Physician [facility] 05-15-2009 novel [id number], preservative-free, injectable No Primary Care Physician [facility] 06-16-2006 varicella virus vaccine No P [facility] Care Physician [facility] 02-12-1994 hepatitis B vaccine, adult dosage No Primary Care Physician [facility] 09-08-1993 hepatitis B vaccine, adult dosage No Primary Care Physician [facility] 08-11-1993 hepatitis B vaccine, adult dosage No Primary Care Physician [facility] Payers Date Payer Category Payer Self-pay [id number] 2015 Unknown [facility] [id number] Medicare MEDICARE PART A B [id number] Unknown ANTHEM [id number] Unknown [id number] Unknown [id number] Unknown [id number] Unknown [id number] [id number] Unknown [id number] Social History Date Type Detail Facility Start: 09-15-2023 End: 09-16-2023 Tobacco smoking status NHIS Unknown if ever smoked [facility] Start: 08-16-2019 None [facility] Start: 07-16-2019 With Family [facility] Start: 05-20-2020 Cigarettes [facility] Start: 1960 Sex Assigned At Male [facility] Start: 12-08-2024 End: 12-08-2024 Tobacco smoking status NHIS Smokes tobacco daily (finding) [facility] Goals Date Patient Goal Desired Activity /State Functional Status Date Assessment Result Facility 12-08-2024 Functional status Standby Assist [facility] Work Phone: 09-16-2023 [facility]: Mental Status Date Assessment Result Facility 09-16-2023 Cognitive function [facility] Work Phone: 09-15-2023 Cognitive function Awake;Alert;A ppropriate;Fol lows Commands [facility] Work Phone: Clinical Notes 05-05-2021 to 12-08-2024 Note Date & Type Note Facility 12-08-2024 Radiology Diagnostic study note [facility] Imaging Services [address] [place], [place] [id number] Chest PA and Lateral MR#: [id number] Acct: [id number] Name: MARCEL TURCIOS Rep #: [id number] : 1960 M 64 From: Sweetie Metzger MD PCP: Dr. Jose David Sims MD Status: [facility] ER Study:Chest PA and Lateral Date of Exam: 12/08/24 Exam# [id number] Ordering Dr: Martha Sawant PROCEDURE: CHEST PA AND LATERAL 12/08/2024 REASON FOR EXAM: CHEST PAIN TECHNIQUE: CHEST PA AND LATERAL COMPARISON: 09/15/2023 FINDINGS: Right lower lobe opacity may reflect atelectasis, pneumonia, and/or aspiration. No pleural effusion or pneumothorax. Mild pulmonary vascular congestion. Cardiac silhouette is unchanged. No acute fractures. RAD/Chest PA and Lateral IMPRESSION: Right lower lobe opacity may reflect atelectasis, pneumonia, and/or aspiration. No pleural effusion or pneumothorax. Mild pulmonary vascular congestion. Reading Location: [id number] CC: Dr. Jose David Sims MD; YASMANY Helton ~ Skein Yarn Drier: Signed [facility] 09-16-2023 Note [facility] Medical Records Department [address] [place] [address] Discharge Summary 09/16/23 1259 MR#: [id number] Acct: [id number] Name: MARCEL TURCIOS Rep #: [id number] : 1960 62 From: Jose David Majano DO PCP: Care Physician,No Primary Status:ADM IN Location: [place] [address] Providers Date of Admission: 09/15/23 Primary Care Physician: No Primary Care Phys Consultations 09/15/23 16:50 Consult: Cardiology Routine Consulting Provider: Clark Lerma Reason for Consult: new onset afib with rvr EMERGENT Consult: No MD Notified: Yes Date Notified: 09/15/23 Time Notified: 17:31 Method of Notification: Text Reason For Visit: NEW ONSET AFIB W/ RVR Diagnosis Discharge Diagnosis (1) Weakness: Status: Acute Code(s): R53.1 - Weakness (2) Atrial fibrillation and flutter: Status: Acute Code(s): I48.91 - Unspecified atrial fibrillation; I48.92 - Unspecified atrial flutter Plan New onset A-fib/a flutter with RVR * Now in NSR. Given dose of IV Cardizem with conversion to sinus rhythm. EKG showed normal sinus rhythm with right bundle branch block. * [id number] score of 0 but patient has poor medical follow up and has significant risk factors as noted below. * Cardiology following. * Echo shows an EF of 65% Worsening dyspnea on exertion * Improved with correction of the atrial fibrillation Weakness * Exacerbated by afib. * Seen by PT and OT, no additional therapy recommended. Suspected TAINA * Resolved with IVF. Creatinine 1.42 on admit, baseline creatinine was 0.9-1.1 back in 2020, has not been checked since then. Mild erythrocytosis * Hemoglobin 18.3 on admit. Improved after IVF. Likely due to hemoconcentration. COPD * Patient denies any formal diagnosis, no PFTs noted in the chart. However, has presumed COPD given significant smoking history. Chest x-ray on admit showed mild cardiomegaly, mild hyperexpansion of the lungs. Okay to treat with DuoNebs as needed while inpatient, recommend establishing with pulmonology in the office on discharge. Chronic conditions: * ZAN??? Reportedly diagnosed about 20 years ago with formal sleep study. Was using his own CPAP machine until about 1 year ago when it broke, has now been using his friend CPAP machine at the patient's settings that he had on his previous CPAP with good results. Continue CPAP while inpatient. Recommend outpatient follow-up with pulm/sleep medicine for appropriate titration of the CPAP. * Current smoker with heavy smoking history??? Was smoking 1 to 1.5 packs/day until the past few weeks, when he has had decreased energy and decreased desire to smoke. States he has not smoked in the past 4 to 5 days. Started smoking at around age 12. Was smoking up to 6 packs of cigarettes per day at its peak.??? Encouraged smoking cessation. Nicotine replacement therapy available as needed. * Mild hyperglycemia??? Glucose 145 on admit. No previous diagnosis of diabetes. A1c 5.8% on admit. No need for further glucose monitoring while inpatient, recommend outpatient follow-up. * Recent dental extraction??? Per patient, had 2 teeth extracted 2 days prior to admission. Poor dentition noted but no overt signs of infection on exam. Outpatient follow-up. * Morbid obesity??? BMI 47 on admit. Complicates hospital course, care and prognosis. CODE STATUS: Full code, verified Expected disposition:home Medications at Discharge Home Medications metoprolol succinate 50 mg tablet,extended release 24 hr 50 mg PO DAILY #30 tabs 09/16/23 Hospital Course Operations None Procedures 2-D Echocardiogram Summary of Care Provided Minutes Spent on Discharge: 32 Hospital Course: Patient presented with weakness. Patient was found to be in atrial fibrillation with RVR. Did conv ert to normal sinus rhythm. Patient will continue with metoprolol succinate 50 mg twice daily. Ynes mcneal said [id number] score was 0 so no anticoagulation was indicated at this time. Patient follow -up cardiology as outpatient. Patient has underlying sleep apnea and COPD. Patient advised to foll ow-up pulmonology. Weight / BMI Weight Weight: 164.382 kg Body Mass Index (BMI) 47.8 ABG / Lab / Microbiology Data 09/16/23 06:57 09/16/23 06:57 Laboratory: Laboratory Results - last 24 hr 09/15/23 11:35: Hemoglobin A1c 5.8 H, Triglycerides 173, Cholesterol 174, LDL Cholesterol 94, VLDL Cholesterol 35, HDL Cholesterol 45, TSH 3.10 09/15/23 12:16: Lactic Acid 1.7, B-Natriuretic Peptide 165.1 H 09/15/23 17:45: Urine Color Yellow, Urine Clarity Clear, Urine pH 5.0, Ur Specific [place] 1.025, Urine Protein 30 H, Urine Glucose (UA) Normal, Urine Ketones 50 H, Urine Occult Blood 150 H, Urine Nitrite Negative, Urine Bilirubin 3 H, Urine Urobilinogen 4 H, Ur Leukocyte Esterase 25 H, Urine RBC 0-5 SEEN, Urine WBC 0-5 SEEN, Ur (more content not included)... [facility] 09-16-2023 Progress note Note Date/Time September 16, 2023 8:21am [facility] Medical Records Department [address] [place] [address] Progress Note - Hospitalist 09/16/23812 MR#: [id number] Acct: [id number] Name: MARCEL TURCIOS Brando Rep #:[id number] : 1960 62 From: Jose David Majano DO PCP: Care Physician,No Primary Status :ADM IN Location: [place] [address] Reason for Visit Reason for Visit: Diagnoses Unspecified atrial fibrillation (09/15/23) Unspecified atrial flutter (09/15/23) Weakness (09/15/23) Subjective Subjective Feels much better. Feels stronger. Thought that this was related to his recent tooth extraction. Objective Data Objective Data Vital Signs: Vital Signs Temp Pulse Resp BP Pulse Ox O2 Del Method O2 Flow Rate 36.6 C 77 18 107/60 95 Room Air 2 09/16/23 07:25 09/16/23 07:25 09/16/23 07:25 09/16/23 07:25 09/16/23 07:25 09/16/23 07:49 09/16/23 04:00 Oxygen Flow Rate (L/min) 2 Oxygen Delivery Method Room Air Weight: 164.382 kg Body Mass Index (BMI) 47.8 Intake & Output: Intake and Output for Last 24 Hours 09/14/23 09/15/23 09/16/23 23:59 23:59 23:59 Intake Total 46.58 / 51.58 42.08 / 42.08 Output Total 400 / 400 Balance 46.58 / -198.42 -357.92 / -357.92 Lab / Micro Data 09/16/23 06:57 09/16/23 06:57 Labs: Laboratory Results - last 24 hr 09/15/23 11:35: WBC 9.8, RBC 6.14, Hgb 18.3 H*, Hct 54.6 H, MCV 88.9, MCH 29.8, MCHC 33.5, RDW Std Deviation 48.6 H, RDW Coeff of Penelope 15.1 H, Plt Count 177, MPV9.4, Immature Gran % (Auto) 0.700, Neut % (Auto) 63.9, Lymph % (Auto) 20.5, Gillespie% (Auto) 11.9 H, Eos % (Auto) 2.1, Baso % (Auto) 0.9, Absolute Neuts (auto) 6.3,Absolute Lymphs (auto) 2.01, Nucleated RBC % 0, Diff Path Review October, PT 13.6, INR 1.0, APTT 26.4, Sodium 138, Potassium 4.1, Chloride 105, Carbon Dioxide 22.0, Anion Gap 11, BUN 20 H, Creatinine 1.42 H, Estim Creat Clear Calc 79.58, Est GFR (MDRD) Af Amer 65, Est GFR (MDRD) Non-Af 53 L, BUN/Creatinine Ratio 14.1, Glucose 145 H, Hemoglobin A1c 5.8 H, Calcium 9.2, Magnesium 2.3, Total Bilirubin 0.80, Direct Bilirubin 0.22, AST 32, ALT 48, Alkaline Phosphatase 70, Troponin I High Sens 20, Total Protein 7.7, Albumin 3.4, Globulin 4.3 H, Triglycerides 173, Cholesterol 174, LDL Cholesterol 94, VLDL Cholesterol 35, HDL Cholesterol 45, Lipase 38, TSH 2.82 09/15/23 11:35: TSH 3.10 09/15/23 12:16: Lactic Acid 1.7, B-Natriuretic Peptide 165.1 H 09/15/23 17:45: Urine Color Yellow, Urine Clarity Clear, Urine pH 5.0, Ur Specific [place] 1.025, Urine Protein 30 H, Urine Glucose (UA) Normal, Urine Ketones 50 H, Urine Occult Blood 150 H, Urine Nitrite Negative, Urine Bilirubin 3 H, Urine Urobilinogen 4 H, Ur Leukocyte Esterase 25 H, Urine RBC 0-5 SEEN, Urine WBC 0-5 SEEN, Ur Squamous Epith Cells 0 SEEN, Urine Bacteria 0 SEEN, Hyaline Casts 0-5 SEEN, Urine Mucus 3+, U Random Total Protein 35.9 H, Ur RandomSodium 16, Urine Creatinine 427.00, Protein/Creatinin Ratio 84 09/16/23 06:57: WBC 7.9, RBC 5.04, Hgb 14.5, Hct 45.0, MCV 89.3, MCH 28.8, MCHC 32.2, RDW Std Deviation 48.8 H, RDW Coeff of Penelope 14.9 H, Plt Count 146 L, MPV 9.4 Radiography Diagnostic Testing: Radiology Impression Chest X-Ray 09/15/23 12:34 IMPRESSION: Mild cardiomegaly. Electronically Signed: Emory Tejada MD at 12:50 EDT Reading Location ID and State: [facility] / [place] , Service support , Echocardiogram 09/15/23 14:11 Interpretation Summary Normal left ventricle. The estimated ejection fraction is 65 %. The study was technically difficult. Contrast injection was performed. Ordering Physician: Rod Castellanos Performed By: Jose Gaines RCS Physical Exam Const alert and no apparent distress HEENT head/scalp atraumatic and moist oral mucous membranes Cardio regular rate, regular rhythm, S1 normal heart sound and S2 normal heart sound GI normal to inspection, nondistended, normoactive bowel sounds, soft to palpation and non-tender Extremity normal to inspection Psych affect normal Assessment & Plan Assessment/Plan (1) Weakness: (2) Atrial fibrillation and flutter: PLAN: Plan New onset A-fib/a flutter with RVR * Now in NSR. Given dose of IV Cardizem with conversion to sinus rhythm. EKG showed normal sinus rhythm with right bundle branch block. * [id number] score of 0 but patient has poor medical follow up and has significant risk factors as noted below. * Cardiology following. * Echo shows an EF of 65% Worsening dyspnea on exertion * Improved with correction of the atrial fibrillation Weakness * Suspect patient has some degree of debility at baseline given his morbid obesity and reported chronic back pain, was likely exacerbated by new onset A- fib with RVR. PT/OT/case management consulted. Suspected TAINA * Resolved with IVF. Creatinine 1.42 on admit, baseline creatinine was 0.9-1.1 back in 2020, has not been checked since then. Mild erythrocytosis * Hemoglobin 18.3 on admit. Improved after IVF. Likely due to hemoconcentration. COPD * Patient denies any formal diagnosis, no PFTs noted in the chart. However, has presumed COPD given significant smoking history. Chest x-ray on admit showed mild cardiomegaly, mild hyperexpansion of the lungs. Okay to treat with DuoNebs as needed while inpatient, recommend establishing with pulmonology in the office on discharge. Chronic conditions: * ZAN? Reportedly diagnosed about 20 years ago with formal sleep study. Was using his own CPAP machine until about 1 year ago when it broke, has now been using his friend CPAP machine at the patient's settings that he had on his previous CPAP with good results. Continue CPAP while inpatient. Recommend o utpatient follow-up with sleep medicine for appropriate titration of the CPAP. * Current smoker with heavy smoking history? Was smoking 1 to 1.5 packs/day until the past few weeks, when he has had decreased energy and decreased desire to smoke. States he has not smoked in the past 4 to 5 days. Started smoking at around age 12. Was smoking up to 6 packs of cigarettes per day at its peak.? Encouraged smoking cessation. Nicotine replacement therapy available as needed. * Mild hyperglycemia? Glucose 145 on admit. No previous diagnosis of diabetes. A1c 5.8% on admit. No need for further glucose monitoring while inpatient, recommend outpatient follow-up. * Recent dental extraction? Per patient, had 2 teeth extracted 2 days prior to admission. Poor dentition noted but no overt signs of infection on exam. Outpatient follow-up. * Morbid obesity? BMI 47 on admit. Complicates hospital course, care and prognosis. DVT prophylaxis: Eliquis CODE STATUS: Full code, verified Expected disposition: TBD. Await on PT OT evaluation. Charges/Coding Visit Charges Inpatient E&M: 50835 Subs Hosp L2 09/16/23 1235 <Electronically signed by Jose David Majano DO> Cosigner Signature (if applicable): CC: ~ Signed [facility] Work Phone: 1(166) 114-896603-21-2024 Progress note Author Clark Lerma [facility] September 16, 2023 8:21am Note Date/Time September 16, 2023 8:1 1am [facility] Medical Records Department [address] [place] [id number] Progress Note - Cardiology 09/16/23 0808 MR#: [id number] Acct: [id number] Name: MARCEL TURCIOS Rep #:[id number] : 1960 62 From: Clark Lerma MD PCP: Care Physician,No Primary Status :ADM IN Location: [place] [address] Subjective Subjective Patient seen and evaluated. Appears to doing well Objective Data Vital Signs: Vital Signs Temp Pulse Resp BP Pulse Ox O2 Del Method O2 Flow Rate 98 F 77 18 107/60 95 Room Air 2 09/16/23 07:25 09/16/23 07:25 09/16/23 07:25 09/16/23 07:25 09/16/23 07:25 09/16/23 07:49 09/16/23 04:00 Oxygen Flow Rate (L/min) 2 Oxygen Delivery Method Room Air Weight: 362 lb 6.4 oz Body Mass Index (BMI) 47.8 Intake & Output: Intake and Output for Last 24 Hours 09/14/23 09/15/23 09/16/23 23:59 23:59 23:59 Intake Total 46.58 / 51.58 42.08 / 42.08 Output Total 400 / 400 Balance 46.58 / -198.42 -357.92 / -357.92 Lab / Micro Data 09/16/23 06:57 09/15/23 11:35 Labs: Laboratory Results - last 24 hr 09/15/23 11:35: WBC 9.8, RBC 6.14, Hgb 18.3 H*, Hct 54.6 H, MCV 88.9, MCH 29.8, MCHC 33.5, RDW Std Deviation 48.6 H, RDW Coeff of Penelope 15.1 H, Plt Count 177, MPV9.4, Immature Gran % (Auto) 0.700, Neut % (Auto) 63.9, Lymph % (Auto) 20.5, Gillespie% (Auto) 11.9 H, Eos % (Auto) 2.1, Baso % (Auto) 0.9, Absolute Neuts (auto) 6.3,Absolute Lymphs (auto) 2.01, Nucleated RBC % 0, Diff Path Review October, PT 13.6, INR 1.0, APTT 26.4, Sodium 138, Potassium 4.1, Chloride 105, Carbon Dioxide 22.0, Anion Gap 11, BUN 20 H, Creatinine 1.42 H, Estim Creat Clear Calc 79.58, Est GFR (MDRD) Af Amer 65, Est GFR (MDRD) Non-Af 53 L, BUN/Creatinine Ratio 14.1, Glucose 145 H, Hemoglobin A1c 5.8 H, Calcium 9.2, Magnesium 2.3, Total Bilirubin 0.80, Direct Bilirubin 0.22, AST 32, ALT 48, Alkaline Phosphatase 70, Troponin I High Sens 20, Total Protein 7.7, Albumin 3.4, Globulin 4.3 H, Triglycerides 173, Cholesterol 174, LDL Cholesterol 94, VLDL Cholesterol 35, HDL Cholesterol 45, Lipase 38, TSH 2.82 09/15/23 11:35: TSH 3.10 09/15/23 12:16: Lactic Acid 1.7, B-Natriuretic Peptide 165.1 H 09/15/23 17:45: Urine Color Yellow, Urine Clarity Clear, Urine pH 5.0, Ur Specific [place] 1.025, Urine Protein 30 H, Urine Glucose (UA) Normal, Urine Ketones 50 H, Urine Occult Blood 150 H, Urine Nitrite Negative, Urine Bilirubin 3 H, Urine Urobilinogen 4 H, Ur Leukocyte Esterase 25 H, Urine RBC 0-5 SEEN, Urine WBC 0-5 SEEN, Ur Squamous Epith Cells 0 SEEN, Urine Bacteria 0 SEEN, Hyaline Casts 0-5 SEEN, Urine Mucus 3+, U Random Total Protein 35.9 H, Ur Random Sodium 16, Urine Creatinine 427.00, Protein/Creatinin Ratio 84 09/16/23 06:57: WBC 7.9, RBC 5.04, Hgb 14.5, Hct 45.0, MCV 89.3, MCH 28.8, MCHC 32.2, RDW Std Deviation 48.8 H, RDW Coeff of Penelope 14.9 H, Plt Count 146 L, MPV 9.4 Cardiology Labs/Tests 09/15/23 11:35: WBC 9.8, RBC 6.14, Hgb 18.3 H*, Hct 54.6 H, MCV 88.9, MCH 29.8, MCHC 33.5, Plt Count 177, MPV 9.4, Immature Gran % (Auto) 0.700, Neut % (Auto) 63.9, Lymph % (Auto) 20.5, Gillespie % (Auto) 11.9 H, Eos % (Auto) 2.1, Baso % (Auto)0.9, Absolute Neuts (auto) 6.3, Nucleated RBC % 0, PT 13.6, INR 1.0, APTT 26.4, Sodium 138, Potassium 4.1, Chloride 105, Carbon Dioxide 22.0, Anion Gap 11, BUN 20 H, Creatinine 1.42 H, Est GFR (MDRD) Af Amer 65, Est GFR (MDRD) Non-Af 53 L, BUN/Creatinine Ratio 14.1, Glucose 145 H, Hemoglobin A1c 5.8 H, Calcium 9.2, Magnesium 2.3, Total Bilirubin 0.80, Direct Bilirubin 0.22, Triglycerides 173, Cholesterol 174, LDL Cholesterol 94, VLDL Cholesterol 35, HDL Cholesterol 45 09/15/23 12:16: Lactic Acid 1.7, B-Natriuretic Peptide 165.1 H 09/15/23 17:45: Urine Color Yellow, Urine Clarity Clear, Urine pH 5.0, Ur Specific [place] 1.025, Urine Protein 30 H, Urine Glucose (UA) Normal, Urine Ketones 50 H, Urine Occult Blood 150 H, Urine Nitrite Negative, Urine Bilirubin 3 H, Urine Urobilinogen 4 H, Ur Leukocyte Esterase 25 H, Urine RBC 0-5 SEEN, Urine WBC 0-5 SEEN 09/16/23 06:57: WBC 7.9, RBC 5.04, Hgb 14.5, Hct 45.0, MCV 89.3, MCH 28.8, MCHC 32.2, Plt Count 146 L, MPV 9.4 Rhythm: EKG: ECHO: Stress Test: Cardiac Cath: PCI: CT Surgery: Holter monitor: EPS: PPM: CXR: Chest CT Scan: Radiography Diagnostic Testing: Radiology Impression Chest X-Ray 09/15/23 12:34 IMPRESSION: Mild cardiomegaly. Electronically Signed: Emory Tejada MD at 12:50 EDT , Echocardiogram 09/15/23 14:11 Interpretation Summary Normal left ventricle. The estimated ejection fraction is 65 %. The study was technically difficult. Contrast injection was performed. Ordering Physician: Rod Castellanos Performed By: Jose Gaines RCS Physical Exam Const alert, oriented x3 and no apparent distress General Appearance: cooperative HEENT hearing grossly normal bilaterally Head and Scalp: atraumatic Eyes EOMs intact bilaterally Neck General: normal visual inspection Chest inspection of chest normal and palpation of chest normal Resp normal respiratory effort Auscultation: clear to auscultation bilaterally Cardio regular rate, regular rhythm, S1 normal heart sound and S2 normal heart sound Jugular Venous Distention: JVD GI normal to inspection, nondistended, normoactive bowel sounds Extremity normal capillary refill and no pedal edema Peripheral Pulses: Yes pulses 2+ throughout and femoral pulses present Skin no rashes or lesions noted Neuro oriented x3 and CN's II-XII intact bilaterally Psych Appearance: grossly normal and appropriate Assessment & Plan Assessment/Plan (1) Atrial fibrillation and flutter: PLAN: Paroxysmal atrial flutter. He presents with paroxysmal atrial flutter. He spontaneously converted to sinus rhythm. No recommendation will be to place him on a beta-ortega with Toprol-XL 50 mg a day. While he is in hospital he can be on metoprolol 25 mg twice a day. His echocardiogram performed today demonstrated preserved left ventricular systolic function though it was a suboptimal study. At this time I would not anticoagulate him. I do not think that his atrial flutter was necessarily related to his generalized weakness. Thank you for allowing me to participate in the care of your patient. Please don't hesitate to call if any issues arise. 09/16/23 08 <Electronically signed by Clark Lerma MD> Cosigner Signature (if applicable): CC: ~ Signed [facility] Work Phone: [phone] History and physical note Author Rod Castellanos [facility] September 15, 2023 10:52pm Note Date/Time September 15, 2023 1:5 0pm [facility] Medical Records Department [address] [place] [id number] H&P Exam - Hospitalist 09/15/23 1350 MR#: [id number] Acct: [id number] Name: MARCEL TURCIOS Rep #:[id number] : 1960 62 From: Rod mathias DO PCP: Care Physician,No Primary Status :ADM IN Location: [facility] [id number] HPI - General General Date of Admission: 09/15/23 Date of Service: 09/15/23 Chief Complaint: Worsening weakness and progressive dyspnea with exertion HPI Narrative MARCEL TURCIOS, is a 62 M who presented to [facility] ED on 09/15/2023 with worsening weakness and progressive dyspnea with exertion. Patient seen at bedside in the ED, granddaughter present. Patient was laying comfortably in bed, conversing normally and in no acute distress during our encounter. He was laying almost flat in bed and had no issues with breathing. Patient states he currently feels much better now than he did over the past few days. States he recently had dental pain that started last Wednesday and he had 2 teeth extracted on Wednesday, and since Wednesday he has felt significantly more tiredand weak than his normal. He denies any significant dental pain or fevers or chills over that time. He lives in a trailer by himself down in [place] and was hardly able to do anything for himself, so he came to the ED for further evaluation. Patient's medical history is significant for morbid obesity, ZAN, presumed COPD,heavy smoking history and chronic back pain. States he was diagnosed with ZAN about 20 years ago, had a sleep study done at our hospital he believes. He was wearing his own CPAP up until about 1 year ago, when his CPAP broke. He has nowbeen using a friend's CPAP since then and continues to feel refreshed in the morning upon awakening. He started smoking at age 12 and was smoking 1 to 1.5 packs/day over the past few years but has hardly smoked at all over the past 4 to 5 days due to fatigue and disinterest in smoking. He states that at one point in the past he was smoking up to 6 packs of cigarettes per day. He has never been on any home inhalers. Denies ever having a COPD exacerbation. Denies ever needing home oxygen. Patient states that over the past 4 to 5 months he has progressively become more short of breath with exertion. States that over the past few weeks it has gotten to the point where he becomes quite short of breath with walking around in his trailer. He denies any recent illnesses. He does state that he had both a stress test done and an echocardiogram done at some point in the past, and on chart review he had a negative stress test in July 2019 and last echo in February 2019 that showed an EF of 60% and no significant abnormalities. On arrival to the ED, patient was found to be tachycardic with what appeared to be either a wide-complex tachycardia versus A-fib/flutter with RVR. He was given adenosine and per the ED staff he appeared to have flutter waves. He was then given a dose of Cardizem and the rate seemed to flipped to A-fib with RVR. He was then started on a Cardizem drip and an EKG was obtained. EKG at that time actually showed normal sinus rhythm with heart rate in the 90s with a rightbundle branch block. No ischemic changes noted. During our encounter, his heart rate remained in the 90s and appeared to be sinus rhythm. Patient states he felt palpitations after his dental procedure on Wednesday and has intermittentlyfelt palpitations since then. However, he denies ever feeling palpitations prior to Wednesday. Patient denies any alcohol use. Denies any substance abuse. Does state that he has gained a fairly significant amount of weight over the past few years since he retired from his job. No other acute concerns this time. [facility] Medical History Anxiety Back pain COPD (chronic obstructive pulmonary disease) Foraminal stenosis of lumbosacral region ZAN (obstructive sleep apnea) PTSD (post-traumatic stress disorder) Home Medications NK 09/15/23 [History Last Taken Unknown] Allergy/AdvReac Type Severity Reaction Status Date / Time codeine Allergy Hives Verified 09/15/23 11:22 Iodinated Contrast Media Allergy Hives Verified 09/15/23 11:22 [Iodinated Contrast Media - IV Dye] diclofenac AdvReac Swelling Verified 09/15/23 11:22 metaxalone AdvReac Swelling Verified 09/15/23 11:22 methylphenidate AdvReac hallucinati Verified 09/15/23 11:22 [From Ritalin] ons Phenylpiperazine AdvReac Other Verified 09/15/23 11:22 Antidepressant Tetracyclic Antidepressants AdvReac Other Verified 09/15/23 11:22 Tricyclic Antidepressants AdvReac Other Verified 09/15/23 11:22 and Tricy Social History Smoking Status: Current every day smoker tobacco type: cigarettes ROS Constitutional Constitutional: Reports fatigue and weakness; Denies chills or fever(s) Eyes Eyes: Denies change in vision Cardiovascular Cardiovascular: Reports dyspnea on exertion and palpitations; Denies chest pain,edema, lightheadedness, paroxysmal nocturnal dyspnea, rapid heart rate or syncope Respiratory/Chest Respiratory/Chest: Reports shortness of breath with exertion; Denies cough, productive cough, shortness of breath at rest or wheezing Gastrointestinal Gastrointestinal: Reports constipation; Denies abdominal pain, diarrhea, nausea or vomiting Genitourinary Genitourinary: Denies dysuria Musculoskeletal Musculoskeletal: Reports back pain; Denies arthralgias or myalgias Neurologic Neurologic: Denies abnormal gait, abnormal speech, confusion, dizziness, focal weakness, headache(s), numbness or paresthesias Vital Signs Vital Signs Vital Signs: 09/15/23 11:19 09/15/23 11:19 09/15/23 11:22 Temperature 96.5 F L 96.5 F L 96.5 F L Temperature Source Temporal Temporal Temporal Pulse Rate 86 86 86 Respiratory Rate 18 16 18 Respiratory Effort Respiratory Pattern Blood Pressure 114/96 H 114/96 H 114/96 H Blood Pressure Mean 102 102 102 Pulse Ox 98 98 98 Oxygen Delivery Method Room Air Room Air Room Air Oxygen Flow Rate (L/min) 09/15/23 11:33 09/15/23 11:33 09/15/23 11:32 Temperature 97.8 F Temperature Source Temporal Pulse Rate 169 H 170 H Respiratory Rate 15 16 Respiratory Effort Short of Breath Respiratory Pattern Normal Blood Pressure 105/81 H 105/81 H Blood Pressure Mean 89 89 Pulse Ox 94 96 Oxygen Delivery Method Room Air Room Air Oxygen Flow Rate (L/min) 09/15/23 11:47 09/15/23 11:52 09/15/23 12:26 Temperature Temperature Source Pulse Rate 171 H 162 H Respiratory Rate 22 H 16 Respiratory Effort Short of Breath Respiratory Pattern Blood Pressure 132/105 H 131/82 H Blood Pressure Mean 114 98 Pulse Ox 97 95 Oxygen Delivery Method Nasal Cannula Nasal Cannula Oxygen Flow Rate (L/min) 2 2 09/15/23 12:32 09/15/23 13:00 Temperature 97.9 F 98.0 F Temperature Source Temporal Temporal Pulse Rate 173 H 121 H Respiratory Rate 23 H 24 H Respiratory Effort Respiratory Pattern Blood Pressure 124/87 H 149/87 H Blood Pressure Mean 99 107 Pulse Ox 96 95 Oxygen Delivery Method Nasal Cannula Nasal Cannula Oxygen Flow Rate (L/min) 2 Weight Weight: 144.3 kg Body Mass Index (BMI) 41.9 Physical Exam Const alert, oriented x3 and no apparent distress Constitutional Narrative: Pleasant middle-age male, morbidly obese, disheveled appearing, otherwise layingcomfortably in bed, conversing normally, in no acute distress. General Appearance: cooperative and comfortable HEENT normocephalic, head/scalp atraumatic, hearing grossly normal bilaterally and nasal mucous membranes and turbinates normal HEENT Narrative: Poor dentition. Eyes PERRL, EOMs intact bilaterally and conjunctivae normal Neck full ROM and no JVD Chest inspection of chest normal Resp normal respiratory effort and no use of accessory muscles Resp Narrative: Breathing comfortably on 2 L nasal cannula with oxygen saturations in the mid tohigh 90s. Good air movement bilaterally with very mild and expiratory wheezes. No crackles noted. Cardio regular rate, regular rhythm, no murmurs and peripheral pulses 2+ throughout GI GI Narrative: Mildly distended but soft and nontender to palpation. Back/Spine normal ROM Extremity normal to inspection, full ROM and no pedal edema Skin no rashes or lesions noted Neuro moves all extremities and no focal motor deficits Speech: speech normal Motor Exam: strength 5/5 throughout Psych mental status grossly normal Results Lab / Micro Data 09/15/23 11:35 09/15/23 11:35 Labs: Laboratory Results - last 24 hr 09/15/23 11:35: WBC 9.8, RBC 6.14, Hgb 18.3 H*, Hct 54.6 H, MCV 88.9, MCH 29.8, MCHC 33.5, RDW Std Deviation 48.6 H, RDW Coeff of Penelope 15.1 H, Plt Count 177, MPV9.4, Immature Gran % (Auto) 0.700, Neut % (Auto) 63.9, Lymph % (Auto) 20.5, Gillespie% (Auto) 11.9 H, Eos % (Auto) 2.1, Baso % (Auto) 0.9, Absolute Neuts (auto) 6.3,Absolute Lymphs (auto) 2.01, Nucleated RBC % 0, Diff Path Review October, PT 13.6, INR 1.0, APTT 26.4, Sodium 138, Potassium 4.1, Chloride 105, Carbon Dioxide 22.0, Anion Gap 11, BUN 20 H, Creatinine 1.42 H, Estim Creat Clear Calc 79.58, Est GFR (MDRD) Af Amer 65, Est GFR (MDRD) Non-Af 53 L, BUN/Creatinine Ratio 14.1, Glucose 145 H, Calcium 9.2, Magnesium 2.3, Total Bilirubin 0.80, Direct Bilirubin 0.22, AST 32, ALT 48, Alkaline Phosphatase 70, Troponin I High Sens 20, Total Protein 7.7, Albumin 3.4, Globulin 4.3 H, Lipase 38, TSH 2.82 09/15/23 12:16: Lactic Acid 1.7, B-Natriuretic Peptide 165.1 H Imaging Radiology Impression Chest X-Ray 09/15/23 12:34 IMPRESSION: Mild cardiomegaly. Electronically Signed: Emory Tejada MD at 12:50 EDT , Assessment & Plan Assessment/Plan (1) Weakness: (2) Atrial fibrillation and flutter: PLAN: Plan Patient is a 62-year-old male who presented [facility] ED on 09/15/2023 with worsening weakness and dyspnea on exertion. 1. New onset A-fib/a flutter with RVR ? Initially with concern for wide-complex tachycardia but after administration of adenosine, more consistent with A-fib/flutter. Given dose of IV Cardizem with conversion to sinus rhythm. EKG showed normal sinus rhythm with right bundle branch block. ? [id number] score of 0 but patient has poor medical follow up and has significant risk factors as noted below. ? Admit under inpatient status to PCU. Cardiology consulted. Echo ordered. Okay to continue IV Cardizem drip, will also start Lopressor 25 mg twice daily. Given 1 dose of therapeutic Lovenox in the ED, will start Eliquis 5 mg twice daily. Continue cardiac monitoring. 2. Worsening dyspnea on exertion ? Have concern that this could be related to underlying CAD given his risk factors of obesity, heavy smoking history and possible untreated hypertension and hyperlipidemia. ? Echo ordered and cardiology consulted as above. Will keep patient n.p.o. at midnight for possible stress test versus left heart cath tomorrow. 3. Weakness ? Suspect patient has some degree of debility at baseline given his morbid obesity and reported chronic back pain, was likely exacerbated by new onset A-fib with RVR. PT/OT/case management consulted. 4. Suspected TAINA ? Creatinine 1.42 on admit, baseline creatinine was 0.9-1.1 back in 2019, has not been checked since then. Suspect mild prerenal TAINA due to A-fib with RVR and mildly depletion. Given 1 L of IV fluids in the ED, follow-up a.m. BMP and urine output. UA, urine protein creatinine ratio and urine sodium ordered. 5. Mild erythrocytosis ? Hemoglobin 18.3 on admit. Previously had hemoglobin values between 17 and 18 in 2019. Suspect secondary to heavy smoking history. Follow-up a.m. CBC. 6. COPD ? Patient denies any formal diagnosis, no PFTs noted in the chart. However, haspresumed COPD given significant smoking history. Chest x-ray on admit showed mild cardiomegaly, mild hyperexpansion of the lungs. Okay to treat with DuoNebsas needed while inpatient, recommend establishing with pulmonology in the officeon discharge. 7. ZAN ? Reportedly diagnosed about 20 years ago with formal sleep study. Was using his own CPAP machine until about 1 year ago when it broke, has now been using his friend CPAP machine at the patient's settings that he had on his previous CPAP with good results. Continue CPAP while inpatient. Recommend outpatient follow-up with sleep medicine for appropriate titration of the CPAP. 8. Current smoker with heavy smoking history ? Was smoking 1 to 1.5 packs/day until the past few weeks, when he has had decreased energy and decreased desire to smoke. States he has not smoked in thepast 4 to 5 days. Started smoking at around age 12. Was smoking up to 6 packs of cigarettes per day at its peak. ? Encouraged smoking cessation. Nicotine replacement therapy available as needed. 9. Mild hyperglycemia ? Glucose 145 on admit. No previous diagnosis of diabetes. A1c 5.8% on admit. No need for further glucose monitoring while inpatient, recommend outpatient follow-up. 10. Recent dental extraction ? Per patient, had 2 teeth extracted 2 days prior to admission. Poor dentition noted but no overt signs of infection on exam. Outpatient follow-up. 11. Morbid obesity ? BMI 47 on admit. Complicates hospital course, care and prognosis. DVT prophylaxis: Eliquis CODE STATUS: Full code, verified Expected disposition: TBD Total clinical time spent by myself addressing the patient's medical issues, reviewing all the data, and collaborating with patient's care team: 75 minutes. Charges/Coding Visit Charges Inpatient E&M: 15774 Init Hosp L3 09/15/23 3684 <Electronically signed by Rod Castellanos DO> Cosigner Signature (if applicable): CC: Dr. Rod Castellanos DO; No Primary Care Physician~ Signed [facility] Work Phone: [phone] 831-677603-20-2024 Consult note Author Clark Lerma [facility] September 15, 2023 6:16pm Note Date/Time September 15, 2023 6:1 2pm [facility] Medical Records Department [address] [place] [address] Consultation - Cardiology 09/15/23 1808 MR#: [id number] Acct: [id number] Name: MARCEL TURCIOS Rep #:[id number] : 1960 62 From: Clark Lerma MD PCP: Care Physician,No Primary Status :ADM IN Location: [place] [id number] Assessment & Plan Assessment/Plan (1) Atrial fibrillation and flutter: PLAN: Paroxysmal atrial flutter. He presents with paroxysmal atrial flutter. He spontaneously converted to sinus rhythm. No recommendation will be to place him on a beta-ortega with Toprol-XL 50 mg a day. While he is in hospital he can be on metoprolol 25 mg twice a day. His echocardiogram performed today demonstrated preserved left ventricular systolic function though it was a suboptimal study. At this time I would not anticoagulate him. I do not think that his atrial flutter was necessarily related to his generalized weakness. Thank you for allowing me to participate in the care of your patient. Please don't hesitate to call if any issues arise. HPI Consult Data Date of Consult: 09/15/23 HPI Narrative HPI Narrative: MARCEL TURCIOS, is a 62 M who presents to the emergency room with worsening weakness and dyspnea on exertion. He says that he was sent to the emergency room by his daughter who felt that he was septic and so came to the emergency room. He does have a history of morbid obesity, obstructive sleep apnea status post CPAP use, heavy tobacco use. He has had occasional palpitations but deniesany chest pain and paroxysmal nocturnal dyspnea. He has been short of breath over the last couple years. He says that he did have an echocardiogram as well as a stress test approximately 4 5 years ago all of which were normal. On arrival to the ED, patient was found to be tachycardic with atrial flutter with 2 1 block and was given intravenous adenosine. He was then started on intravenous diltiazem and transferred to the telemetry unit and cardiology was consulted via text. At this particular time he appears to be doing well. An echocardiogram was ordered which was a suboptimal study but demonstrated overallpreserved left ventricular systolic function. He denies any neck arm or jaw discomfort suggest angina. While I was in the room he converted back to normal sinus rhythm [facility] Medical History Anxiety Back pain COPD (chronic obstructive pulmonary disease) Foraminal stenosis of lumbosacral region ZAN (obstructive sleep apnea) PTSD (post-traumatic stress disorder) Home Medications NK 09/15/23 [History Last Taken Unknown] Allergy/AdvReac Type Severity Reaction Status Date / Time codeine Allergy Hives Verified 09/15/23 11:22 Iodinated Contrast Media Allergy Hives Verified 09/15/23 11:22 [Iodinated Contrast Media - IV Dye] diclofenac AdvReac Swelling Verified 09/15/23 11:22 metaxalone AdvReac Swelling Verified 09/15/23 11:22 methylphenidate AdvReac hallucinati Verified 09/15/23 11:22 [From Ritalin] ons Phenylpiperazine AdvReac Other Verified 09/15/23 11:22 Antidepressant Tetracyclic Antidepressants AdvReac Other Verified 09/15/23 11:22 Tricyclic Antidepressants AdvReac Other Verified 09/15/23 11:22 and Tricy Social History Smoking Status: Current every day smoker tobacco type: cigarettes ROS Constitutional Constitutional: Denies fever(s) or weight loss Eyes Eyes: Reports systems reviewed and no addt'l complaints, except as documented ENT HEENT: Reports systems reviewed and no addt'l complaints, except as documented Cardiovascular Cardiovascular: Denies chest pain at rest, chest pain with activity, dyspnea at rest, dyspnea on exertion, edema, palpitations or paroxysmal nocturnal dyspnea Respiratory/Chest Respiratory/Chest: Denies dyspnea on exertion, productive cough, shortness of breath at rest or shortness of breath with exertion Gastrointestinal Gastrointestinal: Denies change in bowel habits, nausea, vomiting or weight changes Genitourinary Genitourinary: Denies difficulty urinating Musculoskeletal Musculoskeletal: Denies joint stiffness or muscle weakness Integumentary Integumentary: Denies lesions Neurologic Neurologic: Denies dizziness or syncope Psychiatric Psychiatric: Denies anxiety Endocrine Endocrinology: Denies excessive sweating or fatigue Hematologic/Lymphatic Hematologic/Lymphatic: Denies anemia Allergic/Immunologic Allergic/Immunologic: Denies seasonal rhinorrhea Physical Exam Const alert, oriented x3 and no apparent distress General Appearance: cooperative HEENT hearing grossly normal bilaterally Head and Scalp: atraumatic Eyes EOMs intact bilaterally Neck General: normal visual inspection Chest inspection of chest normal and palpation of chest normal Resp normal respiratory effort Auscultation: clear to auscultation bilaterally Cardio regular rate, regular rhythm, S1 normal heart sound and S2 normal heart sound Jugular Venous Distention: JVD GI normal to inspection, nondistended, normoactive bowel sounds Extremity normal capillary refill and no pedal edema Peripheral Pulses: Yes pulses 2+ throughout and femoral pulses present Skin no rashes or lesions noted Neuro oriented x3 and CN's II-XII intact bilaterally Psych Appearance: grossly normal and appropriate Risk Stratification Risk Stratification Applicable: No Objective Data Vital Signs: Vital Signs Temp Pulse Resp BP Pulse Ox O2 Del Method O2 Flow Rate 98.2 F 98 28 H 119/86 H 93 Nasal Cannula 2 09/15/23 17:00 09/15/23 17:15 09/15/23 17:00 09/15/23 17:15 09/15/23 17:40 09/15/23 17:40 09/15/23 17:40 Oxygen Flow Rate (L/min) 2 Oxygen Delivery Method Nasal Cannula Weight: 362 lb 6.4 oz Body Mass Index (BMI) 47.8 Lab / Micro Data 09/15/23 11:35 09/15/23 11:35 Labs: Laboratory Results - last 24 hr 09/15/23 11:35: WBC 9.8, RBC 6.14, Hgb 18.3 H*, Hct 54.6 H, MCV 88.9, MCH 29.8, MCHC 33.5, RDW Std Deviation 48.6 H, RDW Coeff of Penelope 15.1 H, Plt Count 177, MPV9.4, Immature Gran % (Auto) 0.700, Neut % (Auto) 63.9, Lymph % (Auto) 20.5, Gillespie% (Auto) 11.9 H, Eos % (Auto) 2.1, Baso % (Auto) 0.9, Absolute Neuts (auto) 6.3,Absolute Lymphs (auto) 2.01, Nucleated RBC % 0, Diff Path Review October, PT 13.6, INR 1.0, APTT 26.4, Sodium 138, Potassium 4.1, Chloride 105, Carbon Dioxide 22.0, Anion Gap 11, BUN 20 H, Creatinine 1.42 H, Estim Creat Clear Calc 79.58, Est GFR (MDRD) Af Amer 65, Est GFR (MDRD) Non-Af 53 L, BUN/Creatinine Ratio 14.1, Glucose 145 H, Calcium 9.2, Magnesium 2.3, Total Bilirubin 0.80, Direct Bilirubin 0.22, AST 32, ALT 48, Alkaline Phosphatase 70, Troponin I High Sens 20, Total Protein 7.7, Albumin 3.4, Globulin 4.3 H, Lipase 38, TSH 2.82 09/15/23 12:16: Lactic Acid 1.7, B-Natriuretic Peptide 165.1 H Cardiology Labs/Tests 09/15/23 11:35: WBC 9.8, RBC 6.14, Hgb 18.3 H*, Hct 54.6 H, MCV 88.9, MCH 29.8, MCHC 33.5, Plt Count 177, MPV 9.4, Immature Gran % (Auto) 0.700, Neut % (Auto) 63.9, Lymph % (Auto) 20.5, Gillespie % (Auto) 11.9 H, Eos % (Auto) 2.1, Baso % (Auto)0.9, Absolute Neuts (auto) 6.3, Nucleated RBC % 0, PT 13.6, INR 1.0, APTT 26.4, Sodium 138, Potassium 4.1, Chloride 105, Carbon Dioxide 22.0, Anion Gap 11, BUN 20 H, Creatinine 1.42 H, Est GFR (MDRD) Af Amer 65, Est GFR (MDRD) Non-Af 53 L, BUN/Creatinine Ratio 14.1, Glucose 145 H, Calcium 9.2, Magnesium 2.3, Total Bilirubin 0.80, Direct Bilirubin 0.22 09/15/23 12:16: Lactic Acid 1.7, B-Natriuretic Peptide 165.1 H Rhythm: EKG: ECHO: Stress Test: Cardiac Cath: PCI: CT Surgery: Holter monitor: EPS: PPM: CXR: Chest CT Scan: Radiography Diagnostic Testing: Radiology Impression Chest X-Ray 09/15/23 12:34 IMPRESSION: Mild cardiomegaly. Electronically Signed: Emory Tejada MD at 12:50 EDT Reading Location ID and State: [facility] / [place] , Service support , Echocardiogram 09/15/23 14:11 Interpretation Summary Normal left ventricle. The estimated ejection fraction is 65 %. The study was technically difficult. Contrast injection was performed. Ordering Physician: Rod Castellanos Performed By: Jose Gaines RCS 09/15/23 1816 <Electronically signed by Clark Lerma MD> Cosigner Signature (if applicable): CC: Dr. Clark Lerma MD; No Primary Care Physician~ Signed [facility] Work Phone: 1(873) 560-865303-20-2024 Discharge summary Author Bertram Yi [facility] September 15, 2023 4:28pm Note Date/Time September 15, 2023 1:0 9pm [facility] Medical Records Department [address] [place] [address] Emergency Department Summary 09/15/23 MR#: [id number] Acct: [id number] Name: MARCEL TURCIOS Rep #:[id number] : 1960 62 From: Bertram Torres PCP: Care Physician,No Primary Status :ADM IN Location: [address] History of Present Illness Chief Complaint: Weakness [facility] Medical History (Updated 09/15/23 @ 13:[address] Bertram Yi, DO) Anxiety Back pain COPD (chronic obstructive pulmonary disease) Foraminal stenosis of lumbosacral region ZAN (obstructive sleep apnea) PTSD (post-traumatic stress disorder) Home Medications NK 09/15/23 [History Last Taken Unknown] Allergy/AdvReac Type Severity Reaction Status Date / Time codeine Allergy Hives Verified 09/15/23 11:22 Iodinated Contrast Media Allergy Hives Verified 09/15/23 11:22 [Iodinated Contrast Media - IV Dye] diclofenac AdvReac Swelling Verified 09/15/23 11:22 metaxalone AdvReac Swelling Verified 09/15/23 11:22 methylphenidate AdvReac hallucinati Verified 09/15/23 11:22 [From Ritalin] ons Phenylpiperazine AdvReac Other Verified 09/15/23 11:22 Antidepressant Tetracyclic Antidepressants AdvReac Other Verified 09/15/23 11:22 Tricyclic Antidepressants AdvReac Other Verified 09/15/23 11:22 and Tricy Social History (Updated 04/23/20 @ 14:[address] Rosie Lucero MD) Smoking Status: Current every day smoker tobacco type: cigarettes EXAM Physical Exam Const Vital Signs: 09/15/23 11:19 09/15/23 11:19 09/15/23 11:22 Temperature 96.5 F L 96.5 F L 96.5 F L Temperature Source Temporal Temporal Temporal Pulse Rate 86 86 86 Respiratory Rate 18 16 18 Respiratory Effort Respiratory Pattern Blood Pressure 114/96 H 114/96 H 114/96 H Blood Pressure Mean 102 102 102 Pulse Ox 98 98 98 Oxygen Delivery Method Room Air Room Air Room Air Oxygen Flow Rate (L/min) 09/15/23 11:33 09/15/23 11:33 09/15/23 11:32 Temperature 97.8 F Temperature Source Temporal Pulse Rate 169 H 170 H Respiratory Rate 15 16 Respiratory Effort Short of Breath Respiratory Pattern Normal Blood Pressure 105/81 H 105/81 H Blood Pressure Mean 89 89 Pulse Ox 94 96 Oxygen Delivery Method Room Air Room Air Oxygen Flow Rate (L/min) 09/15/23 11:47 09/15/23 11:52 09/15/23 12:26 Temperature Temperature Source Pulse Rate 171 H 162 H Respiratory Rate 22 H 16 Respiratory Effort Short of Breath Respiratory Pattern Blood Pressure 132/105 H 131/82 H Blood Pressure Mean 114 98 Pulse Ox 97 95 Oxygen Delivery Method Nasal Cannula Nasal Cannula Oxygen Flow Rate (L/min) 2 2 09/15/23 12:32 09/15/23 13:00 09/15/23 14:00 Temperature 97.9 F 98.0 F 97.5 F L Temperature Source Temporal Temporal Temporal Pulse Rate 173 H 121 H 130 H Respiratory Rate 23 H 24 H 16 Respiratory Effort Respiratory Pattern Blood Pressure 124/87 H 149/87 H 116/67 Blood Pressure Mean 99 107 83 Pulse Ox 96 95 94 Oxygen Delivery Method Nasal Cannula Nasal Cannula Nasal Cannula Oxygen Flow Rate (L/min) 2 2 09/15/23 15:00 09/15/23 15:00 09/15/23 16:00 Temperature 98.4 F 98.4 F 97.4 F L Temperature Source Oral Oral Temporal Pulse Rate 102 H 107 H 98 Respiratory Rate 20 H 20 H 24 H Respiratory Effort Respiratory Pattern Blood Pressure 116/71 116/71 128/73 H Blood Pressure Mean 86 86 91 Pulse Ox 94 94 98 Oxygen Delivery Method Nasal Cannula Nasal Cannula Nasal Cannula Oxygen Flow Rate (L/min) MDM MDM MDM Narrative Medical decision making narrative: Differential broad based including but not limited to atrial and ventricular tachy dysrhythmias, ACS, sepsis, pneumonia, dehydration, electrolyte disturbancepatient brought into the room where he was noted to be significantly tachycardic. EKG shows a supraventricular tachycardia with right bundle branch block. I suspect an underlying flutter. There is not much variation from around 170 bpm. I asked to have the patient moved to resuscitation room. I spoke with him at length and we went ahead and gave him 6 mg of adenosine which did not cause any change. 12 mg resulted in a slowing down of the ventricular rate and the emergence of flutter waves. He then received 20 mg of Cardizem which slowed him down to around 110 to 130 bpm. This then changed his rhythm toapparent atrial fibrillation on the monitor. He was given a dose of Lovenox andplaced on Cardizem drip. Hemoglobin 18.3 white count 9.8 platelet count of 177. Patient troponin 20 lactic acid 1.7 glucose 145 TSH 2.82 BNP 6.65. Sodium potassium and magnesium were within normal limits. My independent interpretation of the chest x-ray is mild cardiomegaly but no overt failure. Atthis point I spoke with the patient. He has been wearing BiPAP at night for reported sleep apnea. This is not something that he was prescribed. He states he was given the machine. I wonder if he needs to have a formal titration if hehas pulmonary hypertension on echo. These are things that I expressed to him that he may wish to investigate with his doctors. At this point our plan is admission into the hospital. History & Record Review Discussion w/independent historian: Patient and Family Lab Data Attestation: I reviewed the patient's lab results. Labs: Laboratory Results - last 24 hr 09/15/23 09/15/23 11:35 12:16 WBC 9.8 RBC 6.14 Hgb 18.3 H* Hct 54.6 H MCV 88.9 MCH 29.8 MCHC 33.5 RDW Std Deviation 48.6 H RDW Coeff of Penelope 15.1 H Plt Count 177 MPV 9.4 Immature Gran % (Auto) 0.700 Neut % (Auto) 63.9 Lymph % (Auto) 20.5 Gillespie % (Auto) 11.9 H Eos % (Auto) 2.1 Baso % (Auto) 0.9 Absolute Neuts (auto) 6.3 Absolute Lymphs (auto) 2.01 Nucleated RBC % 0 Diff Path Review October foll PT 13.6 INR 1.0 APTT 26.4 Sodium 138 Potassium 4.1 Chloride 105 Carbon Dioxide 22.0 Anion Gap 11 BUN 20 H Creatinine 1.42 H Estim Creat Clear Calc 79.58 Est GFR (MDRD) Af Amer 65 Est GFR (MDRD) Non-Af 53 L BUN/Creatinine Ratio 14.1 Glucose 145 H Lactic Acid 1.7 Calcium 9.2 Magnesium 2.3 Total Bilirubin 0.80 Direct Bilirubin 0.22 AST 32 ALT 48 Alkaline Phosphatase 70 Troponin I High Sens 20 B-Natriuretic Peptide 165.1 H Total Protein 7.7 Albumin 3.4 Globulin 4.3 H Lipase 38 TSH 2.82 Radiography Diagnostic Testing: Clinical Impression(s) from Imaging Studies Chest X-Ray 09/15/23 12:34 IMPRESSION: Mild cardiomegaly. Electronically Signed: Emory Tejada MD at 12:50 EDT , EKG Initial EKG: Attestation: I personally reviewed and interpreted this EKG as follows: Comments: Probable atrial flutter with a ventricular rate of 170 bpm. Right bundle branch block noted Management Discussion w/another healthcare provider: Hospitalist Discharge Plan Dx/Rx/DC Orders Clinical Impression: Obstructive sleep apnea, Atrial fibrillation and flutter, Weakness Disposition Disposition: Acute Care Hospital [facility] What to do if you have Problems For any increased pain, shortness of breath, bleeding, nausea or vomiting, chestpain, or any unexpected problems, contact your Primary Care Provider. Call [facility] ([phone]) or report to the closest Emergency Room. Call 911 if necessary. 09/15/23 2178 <Electronically signed by Bertram Yi DO> Cosigner Signature (if applicable): CC: No Primary Care Physician ~ Signed [facility] Work Phone: 1(194) 477-629003-20-2024 Discharge summary Author Bertram Yi [facility] September 15, 2023 4:28pm Note Date/Time September 15, 2023 1:0 9pm [facility] Medical Records Department [address] [place] [address] Emergency Department Summary 09/15/23 MR#: [id number] Acct: [id number] Name: MARCEL TURCIOS Rep #:[id number] : 1960 62 From: Bertram Torres PCP: Care Physician,No Primary Status :ADM IN Location: [address] History of Present Illness Chief Complaint: Weakness [facility] Medical History (Updated 09/15/23 @ 13:[address] Bertram Yi DO) Anxiety Back pain COPD (chronic obstructive pulmonary disease) Foraminal stenosis of lumbosacral region ZAN (obstructive sleep apnea) PTSD (post-traumatic stress disorder) Home Medications NK 09/15/23 [History Last Taken Unknown] Allergy/AdvReac Type Severity Reaction Status Date / Time codeine Allergy Hives Verified 09/15/23 11:22 Iodinated Contrast Media Allergy Hives Verified 09/15/23 11:22 [Iodinated Contrast Media - IV Dye] diclofenac AdvReac Swelling Verified 09/15/23 11:22 metaxalone AdvReac Swelling Verified 09/15/23 11:22 methylphenidate AdvReac hallucinati Verified 09/15/23 11:22 [From Ritalin] ons Phenylpiperazine AdvReac Other Verified 09/15/23 11:22 Antidepressant Tetracyclic Antidepressants AdvReac Other Verified 09/15/23 11:22 Tricyclic Antidepressants AdvReac Other Verified 09/15/23 11:22 and Tricy Social History (Updated 04/23/20 @ 14:[address] Rosie Lucero MD) Smoking Status: Current every day smoker tobacco type: cigarettes EXAM Physical Exam Const Vital Signs: 09/15/23 11:19 09/15/23 11:19 09/15/23 11:22 Temperature 96.5 F L 96.5 F L 96.5 F L Temperature Source Temporal Temporal Temporal Pulse Rate 86 86 86 Respiratory Rate 18 16 18 Respiratory Effort Respiratory Pattern Blood Pressure 114/96 H 114/96 H 114/96 H Blood Pressure Mean 102 102 102 Pulse Ox 98 98 98 Oxygen Delivery Method Room Air Room Air Room Air Oxygen Flow Rate (L/min) 09/15/23 11:33 09/15/23 11:33 09/15/23 11:32 Temperature 97.8 F Temperature Source Temporal Pulse Rate 169 H 170 H Respiratory Rate 15 16 Respiratory Effort Short of Breath Respiratory Pattern Normal Blood Pressure 105/81 H 105/81 H Blood Pressure Mean 89 89 Pulse Ox 94 96 Oxygen Delivery Method Room Air Room Air Oxygen Flow Rate (L/min) 09/15/23 11:47 09/15/23 11:52 09/15/23 12:26 Temperature Temperature Source Pulse Rate 171 H 162 H Respiratory Rate 22 H 16 Respiratory Effort Short of Breath Respiratory Pattern Blood Pressure 132/105 H 131/82 H Blood Pressure Mean 114 98 Pulse Ox 97 95 Oxygen Delivery Method Nasal Cannula Nasal Cannula Oxygen Flow Rate (L/min) 2 2 09/15/23 12:32 09/15/23 13:00 09/15/23 14:00 Temperature 97.9 F 98.0 F 97.5 F L Temperature Source Temporal Temporal Temporal Pulse Rate 173 H 121 H 130 H Respiratory Rate 23 H 24 H 16 Respiratory Effort Respiratory Pattern Blood Pressure 124/87 H 149/87 H 116/67 Blood Pressure Mean 99 107 83 Pulse Ox 96 95 94 Oxygen Delivery Method Nasal Cannula Nasal Cannula Nasal Cannula Oxygen Flow Rate (L/min) 2 2 09/15/23 15:00 09/15/23 15:00 09/15/23 16:00 Temperature 98.4 F 98.4 F 97.4 F L Temperature Source Oral Oral Temporal Pulse Rate 102 H 107 H 98 Respiratory Rate 20 H 20 H 24 H Respiratory Effort Respiratory Pattern Blood Pressure 116/71 116/71 128/73 H Blood Pressure Mean 86 86 91 Pulse Ox 94 94 98 Oxygen Delivery Method Nasal Cannula Nasal Cannula Nasal Cannula Oxygen Flow Rate (L/min) MDM MDM MDM Narrative Medical decision making narrative: Differential broad based including but not limited to atrial and ventricular tachy dysrhythmias, ACS, sepsis, pneumonia, dehydration, electrolyte disturbancepatient brought into the room where he was noted to be significantly tachycardic. EKG shows a supraventricular tachycardia with right bundle branch block. I suspect an underlying flutter. There is not much variation from around 170 bpm. I asked to have the patient moved to resuscitation room. I spoke with him at length and we went ahead and gave him 6 mg of adenosine which did not cause any change. 12 mg resulted in a slowing down of the ventricular rate and the emergence of flutter waves. He then received 20 mg of Cardizem which slowed him down to around 110 to 130 bpm. This then changed his rhythm toapparent atrial fibrillation on the monitor. He was given a dose of Lovenox andplaced on Cardizem drip. Hemoglobin 18.3 white count 9.8 platelet count of 177. Patient troponin 20 lactic acid 1.7 glucose 145 TSH 2.82 BNP 6.65. Sodium potassium and magnesium were within normal limits. My independent interpretation of the chest x-ray is mild cardiomegaly but no overt failure. Atthis point I spoke with the patient. He has been wearing BiPAP at night for reported sleep apnea. This is not something that he was prescribed. He states he was given the machine. I wonder if he needs to have a formal titration if hehas pulmonary hypertension on echo. These are things that I expressed to him that he may wish to investigate with his doctors. At this point our plan is admission into the hospital. History & Record Review Discussion w/independent historian: Patient and Family Lab Data Attestation: I reviewed the patient's lab results. Labs: Laboratory Results - last 24 hr 09/15/23 09/15/23 11:35 12:16 WBC 9.8 RBC 6.14 Hgb 18.3 H* Hct 54.6 H MCV 88.9 MCH 29.8 MCHC 33.5 RDW Std Deviation 48.6 H RDW Coeff of Penelope 15.1 H Plt Count 177 MPV 9.4 Immature Gran % (Auto) 0.700 Neut % (Auto) 63.9 Lymph % (Auto) 20.5 Gillespie % (Auto) 11.9 H Eos % (Auto) 2.1 Baso % (Auto) 0.9 Absolute Neuts (auto) 6.3 Absolute Lymphs (auto) 2.01 Nucleated RBC % 0 Diff Path Review May foll PT 13.6 INR 1.0 APTT 26.4 Sodium 138 Potassium 4.1 Chloride 105 Carbon Dioxide 22.0 Anion Gap 11 BUN 20 H Creatinine 1.42 H Estim Creat Clear Calc 79.58 Est GFR (MDRD) Af Amer 65 Est GFR (MDRD) Non-Af 53 L BUN/Creatinine Ratio 14.1 Glucose 145 H Lactic Acid 1.7 Calcium 9.2 Magnesium 2.3 Total Bilirubin 0.80 Direct Bilirubin 0.22 AST 32 ALT 48 Alkaline Phosphatase 70 Troponin I High Sens 20 B-Natriuretic Peptide 165.1 H Total Protein 7.7 Albumin 3.4 Globulin 4.3 H Lipase 38 TSH 2.82 Radiography Diagnostic Testing: Clinical Impression(s) from Imaging Studies Chest X-Ray 09/15/23 12:34 IMPRESSION: Mild cardiomegaly. Electronically Signed: Emory Tejada MD at 12:50 EDT , EKG Initial EKG: Attestation: I personally reviewed and interpreted this EKG as follows: Comments: Probable atrial flutter with a ventricular rate of 170 bpm. Right bundle branch block noted Management Discussion w/another healthcare provider: Hospitalist Discharge Plan Dx/Rx/DC Orders Clinical Impression: Obstructive sleep apnea, Atrial fibrillation and flutter, Weakness Disposition Disposition: Acute Care Hospital [facility] What to do if you have Problems For any increased pain, shortness of breath, bleeding, nausea or vomiting, chestpain, or any unexpected problems, contact your Primary Care Provider. Call [facility] ([phone]) or report to the closest Emergency Room. Call 911 if necessary. 09/15/23 4498 <Electronically signed by Bertram Yi DO> Cosigner Signature (if applicable): CC: No Primary Care Physician ~ Signed [facility] Work Phone: 1(483) 146-496511-08-2021 NotePatient Outreach (4CQ) MARCEL TURCIOS ([id number]) 1960 M Date Time Provider Department 05/05/21 KULDIP MARTINEZ (PSS) 4CQ During your visit today, we recorded the following information about you: Kuldip Martinez Pss 05/05/2021 10:56 AM Signed POPULATION HEALTH NAVIGATION OUTREACH Action/FYI Unable to LVM in regards to Colonoscopy/ Colorectal Cancer Screening Contact made with patient or family member? NO Pt identified by name and : NO Outreach Outcome/Action Unable to reach patient: Phone number not valid / voicemail full Reason for Outreach Care Gap or Scheduling/Wellness visits Payer: Payor: OPAL / Plan: [employer] / Product Type: HMO / Care Gap Reviewed:: Colorectal Cancer Screening Reminder: Reminder note to check Health Maintenance for items below Health Maintenance items due: COVID-19 VACCINE(1) Never done SPIROMETRY Never done ANNUAL PCP TEAM CHRONIC DISEASE VISIT Never done HIV SCREENING Never done SHINGRIX VACCINE(1 of 2) Never done PROSTATE CANCER SCREENING DISCUSSION due on 11/17/2014 DEPRESSION SCREENING due on 12/22/2018 COLORECTAL CANCER SCREENING due on 04/26/2020 DIABETES SCREEN due on 10/19/2020 INFLUENZA(1) due on 02/26/2021 Kuldip Martinez Pss May 05, 2021 10:56 AM Allergies As of Date: 05/05/2021 Noted Allergy Reaction ANTIDEPRESSANTS (TRICYCLIC COMPOU*04/23/2017 14 - Other: See Comments Comments: WORKS OPPOSITE CODEINE 04/29/2005 4 - Hives IVP DYE (IODINE) 04/29/2005 16 - Unknown Comments: inflamed like a sunburn RITALIN (METHYLPHENIDATE) 11/22/2015 14 - Other: See Comments Comments: Bad reaction Date Reviewed: 07/20/2019 Reviewed by: Odilia Barone Ma - Fully Assessed Reason for Visit: Population Health Navigation Outreach [3910] Cmt: Colonoscopy/ Colorectal Cancer Screening Prescriptions as of 05/05/2021 - LORazepam (ATIVAN) 1 mg tablet Take 1 tablet by mouth every 8 hours as needed for up to 60 days. - budesonide-formoterol (SYMBICORT) 160-4.5 mcg/actuation inhaler Inhale 2 Puffs as instructed twice daily. - ranitidine (ZANTAC) 150 mg tablet Take 1 tablet by mouth twice daily. - albuterol (PROVENTIL) 2.5 mg /3 mL (0.083 %) nebulizer solution Use 3 mL via nebulizer every 6 hours as needed for Wheezing/Shortness of Breath. 1 vial contains 3 ml. Problem List As Of Date 05/05/2021 Noted Resolved DEPRESS PSYCHOSIS-UNSPEC [F32.9] ESOPHAGEAL REFLUX [K21.9] Sleep apnea [G47.30] MORBID OBESITY [E66.01] POSTTRAUMATIC STRESS DISORDER [F43.10] CERVICALGIA [M54.2] 07/23/2006 Smoker [F17.200] 01/21/2010 COPD (Chronic Obstructive Pulmonary Disease) [J*01/21/2010 Panic anxiety syndrome [F41.0] 07/26/2010 Achilles bursitis or tendinitis [M76.60] 04/08/2012 Screening for colon cancer [Z12.11] 04/15/2017 Incisional hernia [K43.2] 04/15/2017 Encounter Status:Closed by KULDIP WHITAKER on 05/05/21[facility]11-08-2021 NoteHNO ID: [id number] Author: Kuldip Fischer Service: ? Author Type: ? Type: Progress Notes Filed: 05/05/2021 10:56 AM Note Text: POPULATION HEALTH NAVIGATION OUTREACH Action/FYI Unable to LVM in regards to Colonoscopy/ Colorectal Cancer Screening Contact made with patient or family member? NO Pt identified by name and : NO Outreach Outcome/Action Unable to reach patient: Phone number not valid / voicemail full Reason for Outreach Care Gap or Scheduling/Wellness visits Payer: Payor: ANTHEM / Plan: [employer]M PATHWAY HMO SH[employer]ANU / Product Type: HMO / Care Gap Reviewed:: Colorectal Cancer Screening Reminder: Reminder note to check Health Maintenance for items below Health Maintenance items due: COVID-19 VACCINE(1) Never done SPIROMETRY Never done ANNUAL PCP TEAM CHRONIC DISEASE VISIT Never done HIV SCREENING Never done SHINGRIX VACCINE(1 of 2) Never done PROSTATE CANCER SCREENING DISCUSSION due on 11/17/2014 DEPRESSION SCREENING due on 12/22/2018 COLORECTAL CANCER SCREENING due on 04/26/2020 DIABETES SCREEN due on 10/19/2020 INFLUENZA(1) due on 02/26/2021 Kuldip Michelle Pss May 05, 2021 10:56 [facility] note Author Radha Tellez [facility] September 16, 2023 1:55pm Note Date/Time September 16, 2023 1:[address] [facility] Medical Records Department [address] [place] [address] Counseling Note - Pharmacy 09/16/23 1355 MR#: [id number] Acct: [id number] Name: MARCEL TURCIOS Rep #:[id number] : 1960 62 From: Radha Tellez PCP: Care Physician,No Primary Status :ADM IN Location: [place] [id number] 1 Pharmacy [facility] has performed discharge medication reconciliation and counseling for this patient. The patient's discharge medication list was reviewed for discrepancies and discrepancies were resolved. The patient was counseled on the following discharge medications and changes in medications for homegoing were reviewed. 1. TOPROL XL The Reason for Use, instructions for use, and potential side effects were reviewed for all new medications. The patient's questions regarding all of their medications were answered. The patient was able to verbally demonstrate an understanding of their dischargemedications. Medications at Discharge Home Medications metoprolol succinate 50 mg tablet,extended release 24 hr 50 mg PO DAILY #30 tabs09/16/23 09/16/23 1355 <Electronically signed by Radha Tellez > Date _ Radha Tellez Cosigner Signature (if applicable): Date CC: ~ Signed [facility] Work Phone: Discharge summary Author Jose David Majano [facility] September 16, 2023 1:12pm Note Date/Time September 16, 2023 1:0 2pm [facility] Medical Records Department [address] [place] [address] Discharge Summary 09/16/23 1259 MR#: [id number] Acct: [id number] Name: MARCEL TURCIOS Rep #:[id number] : 1960 62 From: Jose David Croninjazmin WARE PCP: Care Physician,No Primary Status :ADM IN Location: [place] [address] Providers Date of Admission: 09/15/23 Primary Care Physician: No Primary Care Phys Consultations 09/15/23 16:50 Consult: Cardiology Routine Consulting Provider: Clark Lerma Reason for Consult: new onset afib with rvr EMERGENT Consult: No MD Notified: Yes Date Notified: 09/15/23 Time Notified: 17:31 Method of Notification: Text Reason For Visit: NEW ONSET AFIB W/ RVR Diagnosis Discharge Diagnosis (1) Weakness: Status: Acute Code(s): R53.1 - Weakness (2) Atrial fibrillation and flutter: Status: Acute Code(s): I48.91 - Unspecified atrial fibrillation; I48.92 - Unspecified atrial flutter Plan New onset A-fib/a flutter with RVR * Now in NSR. Given dose of IV Cardizem with conversion to sinus rhythm. EKG showed normal sinus rhythm with right bundle branch block. * [id number] score of 0 but patient has poor medical follow up and has significant risk factors as noted below. * Cardiology following. * Echo shows an EF of 65% Worsening dyspnea on exertion * Improved with correction of the atrial fibrillation Weakness * Exacerbated by afib. * Seen by PT and OT, no additional therapy recommended. Suspected TAINA * Resolved with IVF. Creatinine 1.42 on admit, baseline creatinine was 0.9-1.1 back in 2019, has not been checked since then. Mild erythrocytosis * Hemoglobin 18.3 on admit. Improved after IVF. Likely due to hemoconcentration. COPD * Patient denies any formal diagnosis, no PFTs noted in the chart. However, has presumed COPD given significant smoking history. Chest x-ray on admit showed mild cardiomegaly, mild hyperexpansion of the lungs. Okay to treat with DuoNebs as needed while inpatient, recommend establishing with pulmonology in the office on discharge. Chronic conditions: * ZAN? Reportedly diagnosed about 20 years ago with formal sleep study. Was using his own CPAP machine until about 1 year ago when it broke, has now been using his friend CPAP machine at the patient's settings that he had on his previous CPAP with good results. Continue CPAP while inpatient. Recommend outpatient follow-up with pulm/sleep medicine for appropriate titration of the CPAP. * Current smoker with heavy smoking history? Was smoking 1 to 1.5 packs/day until the past few weeks, when he has had decreased energy and decreased desire to smoke. States he has not smoked in the past 4 to 5 days. Started smoking at around age 12. Was smoking up to 6 packs of cigarettes per day at its peak.? Encouraged smoking cessation. Nicotine replacement therapy available as needed. * Mild hyperglycemia? Glucose 145 on admit. No previous diagnosis of diabetes. A1c 5.8% on admit. No need for further glucose monitoring while inpatient, recommend outpatient follow-up. * Recent dental extraction? Per patient, had 2 teeth extracted 2 days prior to admission. Poor dentition noted but no overt signs of infection on exam. Outpatient follow-up. * Morbid obesity? BMI 47 on admit. Complicates hospital course, care and prognosis. CODE STATUS: Full code, verified Expected disposition:home Medications at Discharge Home Medications metoprolol succinate 50 mg tablet,extended release 24 hr 50 mg PO DAILY #30 tabs03/ Hospital Course Operations None Procedures 2-D Echocardiogram Summary of Care Provided Minutes Spent on Discharge: 32 Hospital Course: Patient presented with weakness. Patient was found to be in atrial fibrillationwith RVR. Did convert to normal sinus rhythm. Patient will continue with metoprolol succinate 50 mg twice daily. Patient said [id number] score was 0 so no anticoagulation was indicated at this time. Patient follow-up cardiology as outpatient. Patient has underlying sleep apnea and COPD. Patient advised tofollow-up pulmonology. Weight / BMI Weight Weight: 164.382 kg Body Mass Index (BMI) 47.8 ABG / Lab / Microbiology Data 09/16/23 06:57 09/16/23 06:57 Laboratory: Laboratory Results - last 24 hr 09/15/23 11:35: Hemoglobin A1c 5.8 H, Triglycerides 173, Cholesterol 174, LDL Cholesterol 94, VLDL Cholesterol 35, HDL Cholesterol 45, TSH 3.10 09/15/23 12:16: Lactic Acid 1.7, B-Natriuretic Peptide 165.1 H 09/15/23 17:45: Urine Color Yellow, Urine Clarity Clear, Urine pH 5.0, Ur Specific [place] 1.025, Urine Protein 30 H, Urine Glucose (UA) Normal, Urine Ketones 50 H, Urine Occult Blood 150 H, Urine Nitrite Negative, Urine Bilirubin 3 H, Urine Urobilinogen 4 H, Ur Leukocyte Esterase 25 H, Urine RBC 0-5 SEEN, Urine WBC 0-5 SEEN, Ur Squamous Epith Cells 0 SEEN, Urine Bacteria 0 SEEN, Hyaline Casts 0-5 SEEN, Urine Mucus 3+, U Random Total Protein 35.9 H, Ur RandomSodium 16, Urine Creatinine 427.00, Protein/Creatinin Ratio 84 09/16/23 06:57: WBC 7.9, RBC 5.04, Hgb 14.5, Hct 45.0, MCV 89.3, MCH 28.8, MCHC 32.2, RDW Std Deviation 48.8 H, RDW Coeff of Penelope 14.9 H, Plt Count 146 L, MPV 9.4, Sodium 138, Potassium 4.0, Chloride 109 H, Carbon Dioxide 23.0, Anion Gap 6,BUN 26 H, Creatinine 1.04, Estim Creat Clear Calc 116.91, Est GFR (MDRD) Af Amer93, Est GFR (MDRD) Non-Af 77, BUN/Creatinine Ratio 25.0 H, Glucose 125 H, Calcium 9.1 Radiography Diagnostic Testing: Radiology Impression Echocardiogram 09/15/23 14:11 Interpretation Summary Normal left ventricle. The estimated ejection fraction is 65 %. The study was technically difficult. Contrast injection was performed. Ordering Physician: Rod Castellanos Performed By: Jose Gaines RCS D/C Instructions Discharge Diet: No restrictions Meaningful Use Info Meaningful Use Diagnoses (Choose all that apply): None applicable Discharge Plan Admission Admit Date/Time: 09/15/23 14:05 Primary Reason for Your Visit: atrial fibrillation with rapid ventricular rate. Attending Provider: Jose David Majano Primary Care Provider: Care Physician,No Primary Consulting Providers: Clark Lerma; Rod Castellanos Instructions Additional Instructions / Restrictions: You presented with an abnormal heart rhythm called atrial fibrillation which wasfast. That was likely why you felt so weak and ill. You will be on medication,metoprolol, which will help control your heart rate. Do recommend that you follow-up with cardiology just for routine monitoring. Additionally with your history of sleep apnea, do recommend following up with pulmonology, lung doctors, for evaluation and see if that needs to be readjusted. Also get established with primary care doctor for routine follow-up. Discharge Orders/Prescriptions Prescriptions: New metoprolol succinate 50 mg Tablet Extended Release 24 Hr 50 mg PO DAILY Qty: 30 0RF Referrals / Follow Up: [facility] [Provider Group] - Within 1 Month [facility] [Provider Group] - Within 3 Months Care Physician,No Primary [Primary Care Provider] - Within 2 Weeks Disposition Disposition (needs filled in before D/C Order can be placed): Home, Self Care Charges/Coding Visit Charges Inpatient E&M: 49410 Disch Hosp >30min 09/16/23 1312 <Electronically signed by Jose David Majano DO> Cosigner Signature (if applicable): CC: Dr. Jose David Majano, DO; No Primary Care Physician~ Signed [facility] Work Phone: Evaluation note* Diagnosis Onset Date Resolution Status Atrial fibrillation and flutter acute Weakness acute Obstructive sleep apnea court monitor roldan [facility] Work Phone: Evaluation noteNo assessment information available [facility] Work Phone: Reason for referral (narrative)No [facility] Summary Purpose Family History Relationship Condition Age at Onset Recorded Date/T [place] Unknown Family History?Heart Disease, Hypertension Unknown August 16, 2019 9:22pm Family History?Heart Disease, Hypertension Unknown August 16, 2019 9:22pm Family History?No pe rtinent history Unknown December 27, 2013 1:35pm Advance Directives Advance Directive Response Recorded Date/ Time Advance Directives No November 12 6 2:20pm Living Will No September 15, 2023 11:35am Power of Ballet Dancer No September 14 11:35am Advance Directive Response Recorded Date/ Time Advance Directives No November 12 6 2:20pm Living Will No September 15, 2023 4:53pm Power of Ballet Dancer No September 14 4:53pm Advance Directive Response Recorded Date/ Time Do you have a Healthcare Power of Ballet Dancer? No December 08, 2024 12:22pm Advance Directives No November 12 6 2:20pm Advance Directive Response Recorded Date/ Time Do you have a Healthcare Power of Ballet Dancer? No December 08, 2024 4:40pm Advance Directives No November 12 6 2:20pm Chief Complaint and Reason for Visit Chief Complaint NEW ONSET AFIB W/ RV R Reason for Visit Atrial fibrillation and flutter Weakness Obstructive sleep apnea Chief Complaint NEW ONSET AFIB W/ RV R NEW ONSET AFIB W/ RVR NEW ONSET AFIB W/ RVR Reason for Visit Atrial fibrillation and flutter Weakness Obstructive sleep apnea Chief Complaint Admit Date ACUTE COPD EXACERBATION December 08, 2024 3:35pm Additional Source Comments (unrecognized sect ion and content) No Status Records FoundNo Status Records FoundNo Status Records FoundNo Status Records Found INFORMATION SOURCE (unrecogn ized section and content) DATE CREATED AUTHOR 12/21/2017 [facility] DATE CREATED AUTHOR AUTHOR'S ORGANIZ ATION 07/27/2019 [facility] ([place]) DATE CREATED AUTHOR AUTHOR'S ORGANIZ ATION 08/21/2021 [facility] DATE CREATED AUTHOR AUTHOR'S ORGANIZ ATION 09/24/2023 [facility] Care Teams (unrecognized sec tion and content) Team Status: Active Member Role Status Dates No Primary Care Physician Family Provider Active No Primary Care Physician Primary Care Provider Active Team Status: Active Member Role Status Dates Dr. Bertram Yi , DO Emergency Provider Active No Primary Care Physician Primary Care Provider Active Dr. Rod Castellanos , DO Admit Provider, Attending Provider Active Team Status: Active Member Role Status Dates No Primary Care Physician Primary Care Provider Active Dr. Clark Lerma MD Attending Provider Active Team Status: Active Member Role Status Dates Dr. Bertram Yi , DO Emergency Provider Active No Primary Care Physician Primary Care Provider Active Dr. Rod Castellanos , DO Admit Provider, Other Pro vider Active Dr. Clark Lerma MD Attending Provider, Other Provide r Active Dr. Jose David Majano DO Other Provider Active Team Status: Active Member Role Status Dates Dr. Bertram Yi , DO Emergency Provider Active No Primary Care Physician Primary Care Provider Active Dr. Rod Castellanos , DO Admit Provider, Other Pro vider Active Dr. Clark Lerma MD Other Provider Active Dr. Jose David Majano DO Attending Provider, Other Provid er Active Team Status: Inactive Member Role Status Dates Dr. Bertram Yi , Emergency Provider Active No Primary Care Physician Primary Care Provider Active Dr. Rod Castellanos , DO Admit Provider, Other Pro vider Active Dr. Clark Lerma MD Other Provider Active Dr. Jose David Majano DO Attending Provider Active Team Status: Active Member Role Status Dates Dr. Jose David Sims MD Primary Care Provider Active Team Status: Active Member Role Status Dates Dr. Jose David Sims MD Primary Care Provider Active Start: December 07, 2024 Dr. Jose David Sims MD Attending Provider Active St art: December 07, 2024 Dr. Jose David Sims MD Referring Provider Active St art: December 07, 2024 Team Status: Active Member Role Status Dates Dr. Jose David Sims MD Primary Care Provider Active Start: December 08, 2024 Dr. Shelbie Guaman , Emergency Provider Active Start: December 08, 2024 Dr. Mis Edmondson MD Admit Provider Active St art: December 08, 2024 Dr. Mis Edmondson MD Attending Provider Active Start: December 08, 2024 Dr. Mis Edmondson MD Referring Provider Active Start: December 08, 2024 Team Status: Inactive Member Role Status Dates Dr. Jose David Sims MD Primary Care Provider Active Start: December 08, 2024 End: December 08, 2024 Dr. Shelbie Guaman , Emergency Provider Active Start: December 08, 2024 End: December 08, 2024 Dr. Mis Edmondson MD Admit Provider Active St art: December 08, 2024 End: December 08, 2024 Dr. Mis Edmondson MD Attending Provider Active Start: December 08, 2024 End: December 08, 2024 Dr. Mis Edmondson MD Referring Provider Active Start: December 08, 2024 End: December 08, 2024 Dr. Jesse Urban MD Other Provider Active Star t: December 08, 2024 End: December 08, 2024 Goals (unrecognized section and content) Goals may be documented in a n alternate sectionGoals may be documented in an alternate sectionGoals may be documented in an alternate section FOR RECORDS PERTAINING TO PATIENTS WHO ARE OR HAVE BEEN ENROLLED IN A CHEMICAL DEPENDENCY/SUBSTANCEABUSE PROGRAM, SOME INFORMATION MAY BE OMITTED. This clinical summary was aggregated from multiple sources. Caution should be exercised in using it in the provision of clinical care. This summary normalizes information from multiple sources, and as a consequence, information in this document may materially change the coding, format and clinical context of patient data. In addition, data may be omitted in some cases. CLINICAL DECISIONS SHOULD BE BASED ON THE PRIMARY CLINICAL RECORDS. [facility] [employer] provides no warranty or guarantee of the accuracy or completeness of information in this document.
[2024-12-08 21:33] LABS: Absolute Lymphocyte Count 3.55 X10^3/uL (0.83-4.51); Absolute Neutrophil Count 14.6 X10^3/uL (2.0-7.7); Basophil# 0.17 X10^3/uL; Basophil% 0.8 % (0-1); Eosinophil# 0.09 X10^3/uL; Eosinophils% 0.4 % (0-5); Hematocrit 53.8 % (40-54); Lymphocyte # 3.55 X10^3/ul (0.83-4.51); Lymphocyte % 17.5 % (19-41); Mean Corp Hgb Conc 34.2 g/dL (32-36); Mean Corpuscular Volume 87.6 fL (80-94); Monocyte# 1.75 X10^3/uL; Monocyte% 8.6 % (0-10); NRBC Flagged by Analyzer 0 % (0-5); Neutrophil # 14.56 X10^3/uL (2.7-7.7); Neutrophil % 72.1 % (47-70); POSITIVE DIFFERENTIAL YES; Platelet Count 267 K/mm3 (150-450); RBC Distribution Width CV 15.8 % (11.6-14.6); RBC Distribution Width SD 48.6 fl (35.1-43.9); Red Blood Count 6.14 M/mm3 (4.6-6.2); White Blood Count 20.3 K/mm3 (4.4-11.0)
--- NOTE | 2024-12-08 21:34 | ED.VIS.CHEST ---
HPI <YASMANY Helton - Last Filed: 12/08/24 21:46> History of Present Illness Chief Complaint: Shortness of Breath Narrative Narrative: Patient presenting today due to concerns for chest pain, palpitations, rapid heart rate, and shortness of breath. He was seen here earlier today and was admitted to the hospital for dyspnea and concerns for COPD exacerbation and probable CHF exacerbation. While on the floor he did go into A-fib RVR and was placed on a Cardizem drip after receiving a Cardizem bolus. He then signed out AMA. He reports that he has a history of PTSD when it comes to hospitals and was feeling very anxious and decided to leave. His family convinced him to come back to be readmitted. He is now willing to be treated and admitted to the hospital. He reports worsened left-sided chest pain and shortness of breath. He does have a history of paroxysmal A-fib but is not on any anticoagulant. He has a PMH of heavy tobacco use, COPD, and hypertension. He is not on any antihypertensives or cardiac meds. [facility] <YASMANY Helton - Last Filed: 12/08/24 21:46> [facility] Medical History PTSD (post-traumatic stress disorder) Foraminal stenosis of lumbosacral region ZAN (obstructive sleep apnea) Back pain Anxiety COPD (chronic obstructive pulmonary disease) Radiculitis of leg Lumbar canal stenosis Foraminal stenosis of lumbosacral region Back pain Anxiety COPD (chronic obstructive pulmonary disease) Obstructive sleep apnea Home Medications ?Medication ?Instructions ?Recorded ?Last Taken ?Type albuterol sulfate 1.25 mg/3 mL 1.25 mg inhalation Q4H PRN PRN 12/08/24 Unknown History solution for nebulization dyspnea budesonide-formoterol HFA 160 2 inh inhalation Q12H 12/08/24 Unknown History mcg-4.5 mcg/actuation aerosol inhaler (Breyna) magnesium oxide 400 mg (241.3 mg 400 mg PO BID 12/08/24 Unknown History magnesium) tablet Allergy/AdvReac Type Severity Reaction Status Date / Time codeine Allergy Hives Verified 12/08/24 21:09 Iodinated Contrast Media Allergy Hives Verified 12/08/24 21:09 (Iodinated Contrast Media - IV Dye) diclofenac AdvReac Swelling Verified 12/08/24 21:09 metaxalone AdvReac Swelling Verified 12/08/24 21:09 methylphenidate (From AdvReac hallucinati Verified 12/08/24 21:09 Ritalin) ons Phenylpiperazine AdvReac Other Verified 12/08/24 21:09 Antidepressant Tetracyclic Antidepressants AdvReac Other Verified 12/08/24 21:09 Tricyclic Antidepressants AdvReac Other Verified 12/08/24 21:09 and Tricy Surgical History S/P epidural steroid injection Social History Smoking Status: Current every day smoker tobacco type: cigarettes and e-cigarettes ROS <YASMANY Helton - Last Filed: 12/08/24 21:46> ROS ED Constitutional Constitutional ED: Denies chills or fever(s) Cardiovascular Cardiovascular: Reports chest pain, palpitations and racing heartbeat Respiratory/Chest Respiratory/Chest: Reports dyspnea and tachypnea Gastrointestinal Gastrointestinal: Denies abdominal pain, nausea or vomiting Integumentary Denies rash Neurologic Neurologic: Denies weakness EXAM <YASMANY Helton - Last Filed: 12/08/24 21:46> Physical Exam Const Vital Signs: 12/08/24 21:08 12/08/24 21:14 12/08/24 21:14 Temperature 98.3 F 98.3 F Temperature Source Temporal Oral Pulse Rate 125 H 180 H Respiratory Rate 38 H 34 H Respiratory Effort Short of Breath Labored Accessory Muscle Use Respiratory Depth Respiratory Pattern Gasping Blood Pressure 164/117 H 183/162 H Blood Pressure Mean 132 169 Pulse Ox 97 98 Oxygen Delivery Method Room Air Bi-pap Fraction of Inspired Oxygen (FIO2) 14 12/08/24 21:14 12/08/24 21:32 12/08/24 22:00 Temperature 98.8 F Temperature Source Oral Pulse Rate 114 H Respiratory Rate 24 H Respiratory Effort Short of Breath Labored Accessory Muscle Use Nasal Flaring Respiratory Depth Shallow Respiratory Pattern Tachypnea Blood Pressure 110/68 Blood Pressure Mean 82 Pulse Ox 95 92 Oxygen Delivery Method Bi-pap Bi-pap Bi-pap Fraction of Inspired Oxygen (FIO2) 14 14 14 12/08/24 23:00 12/08/24 23:50 12/08/24 23:51 Temperature 98.7 F 97.8 F 97.8 F Temperature Source Oral Pulse Rate 100 83 Respiratory Rate 20 H 24 H Respiratory Effort Normal Non-Labored Respiratory Depth Normal Respiratory Pattern Normal Blood Pressure 102/69 104/63 Blood Pressure Mean 80 76 Pulse Ox 90 98 93 Oxygen Delivery Method Bi-pap Airvo Fraction of Inspired Oxygen (FIO2) 14 12/09/24 00:00 Temperature 97.8 F Temperature Source Oral Pulse Rate 85 Respiratory Rate 18 Respiratory Effort Respiratory Depth Respiratory Pattern Blood Pressure 117/77 Blood Pressure Mean 90 Pulse Ox 93 Oxygen Delivery Method Bi-pap Fraction of Inspired Oxygen (FIO2) 14 Positive well nourished, well developed and no apparent distress General Appearance ED: well developed HEENT Reports normocephalic and head/scalp atraumatic Mouth ED: Yes moist mucous membranes normal Eyes PERRL and EOMs intact bilaterally Neck full ROM and supple Chest Wall inspection of chest normal Resp Resp Narrative: Tachypnea, decreased air movement bilaterally. Cardio Rate: tachycardic Rhythm: abnormal rhythm irregularly irregular GI soft to palpation, non-tender, non-distended and no masses Back/Spine normal ROM and normal to inspection Extremity normal to inspection and full ROM Neuro oriented x3, CN's II-XII intact bilaterally, moves all extremities, no focal motor deficits and no sensory deficits noted Sensorium / Orientation: awake and alert Psych mental status grossly normal and thought process normal Skin no rashes or lesions noted and no wounds <Dr. Jose David Georges, DO - Last Filed: 12/09/24 01:26> Physical Exam Const Vital Signs: 12/08/24 21:08 12/08/24 21:14 12/08/24 21:14 Temperature 98.3 F 98.3 F Temperature Source Temporal Oral Pulse Rate 125 H 180 H Respiratory Rate 38 H 34 H Respiratory Effort Short of Breath Labored Accessory Muscle Use Respiratory Depth Respiratory Pattern Gasping Blood Pressure 164/117 H 183/162 H Blood Pressure Mean 132 169 Pulse Ox 97 98 Oxygen Delivery Method Room Air Bi-pap Fraction of Inspired Oxygen (FIO2) 14 12/08/24 21:14 12/08/24 21:32 12/08/24 22:00 Temperature 98.8 F Temperature Source Oral Pulse Rate 114 H Respiratory Rate 24 H Respiratory Effort Short of Breath Labored Accessory Muscle Use Nasal Flaring Respiratory Depth Shallow Respiratory Pattern Tachypnea Blood Pressure 110/68 Blood Pressure Mean 82 Pulse Ox 95 92 Oxygen Delivery Method Bi-pap Bi-pap Bi-pap Fraction of Inspired Oxygen (FIO2) 14 14 14 12/08/24 23:00 12/08/24 23:50 12/08/24 23:51 Temperature 98.7 F 97.8 F 97.8 F Temperature Source Oral Pulse Rate 100 83 Respiratory Rate 20 H 24 H Respiratory Effort Normal Non-Labored Respiratory Depth Normal Respiratory Pattern Normal Blood Pressure 102/69 104/63 Blood Pressure Mean 80 76 Pulse Ox 90 98 93 Oxygen Delivery Method Bi-pap Airvo Fraction of Inspired Oxygen (FIO2) 14 12/09/24 00:00 Temperature 97.8 F Temperature Source Oral Pulse Rate 85 Respiratory Rate 18 Respiratory Effort Respiratory Depth Respiratory Pattern Blood Pressure 117/77 Blood Pressure Mean 90 Pulse Ox 93 Oxygen Delivery Method Bi-pap Fraction of Inspired Oxygen (FIO2) [address] [facility] <YASMANY Helton - Last Filed: 12/08/24 21:46> [facility] Narrative Medical decision making narrative: Patient presenting today due to dyspnea, chest pain, and tachycardia. I saw him earlier today and admitted him to the hospital due to dyspnea, chest pain, and likely COPD and CHF exacerbation. He wears BiPAP chronically but does not follow with a PCP. He recently established with a PCP last Wednesday and was started on some inhalers for his COPD. His dyspnea is so profound that he has been unable to shower for weeks and has a hard time making it to his bathroom without feeling significantly short of breath. While he was admitted on the floor he did go into A-fib RVR and was given a Cardizem bolus and Cardizem drip but elected to leave [place] due to anxiety and PTSD. His family convinced him to come back. He is now willing to be treated and readmitted to the hospital. He is in A-fib RVR with a heart rate around 180. He was given a Cardizem bolus. Cardiac workup will be obtained. Lab Data Attestation: I reviewed the patient's lab results. Labs: Laboratory Results - last 24 hr 12/08/24 12/08/24 21:20 23:32 WBC 20.3 H RBC 6.14 Hgb 18.4 H* Hct 53.8 MCV 87.6 MCH 30.0 MCHC 34.2 RDW Std Deviation 48.6 H RDW Coeff of Penelope 15.8 H Plt Count 267 MPV 9.0 Immature Gran % (Auto) 0.600 Neut % (Auto) 72.1 H Lymph % (Auto) 17.5 L Parke % (Auto) 8.6 Eos % (Auto) 0.4 Baso % (Auto) 0.8 Absolute Neuts (auto) 14.6 H Absolute Lymphs (auto) 3.55 Nucleated RBC % 0 Differential Comment SCANNED Sodium 139 Potassium 4.1 Chloride 102 Carbon Dioxide 17.3 L Anion Gap 20 H BUN 13 Creatinine 1.50 H Estim Creat Clear Calc 80.71 Est GFR (MDRD) Non-Af 51 L BUN/Creatinine Ratio 8.4 L Glucose 157 H Calcium 10.2 Troponin T High Sens 36 H D Troponin T Hi Sens 2 Hr 34 H Procalcitonin 0.15 H ABG Data ABG results: ABG 12/09/24 00:38 Specimen Type ART Sample Site R Brach pH 7.35 Bicarbonate Actual 24.1 Total CO2 25 Base Excess -2 O2 Saturation 93 L O2 % 21.0 ABG pCO2 43.5 ABG pO2 71 L Jose Test Positive O2 Delivery Device BiPAP Vent Mode Not entered Clinical Comments Home unit: 17/5 21% Radiography Diagnostic Testing: Clinical Impression(s) from Imaging Studies Chest X-Ray 12/08/24 21:48 IMPRESSION: 1. Right lower lobe opacity, which may represent atelectasis or pneumonitis/pneumonia. 2. Mild cardiomegaly. Reading Location: [facility] Chest CT 12/08/24 23:54 IMPRESSION: Coronary artery calcification (CAC) is is present Subsegmental atelectasis/consolidation in the lingula. Please evaluate to exclude superimposed pneumonia. Reading [facility] [address] EKG Initial EKG: Comments: 174 bpm, A-fib RVR, no ST elevation, interpreted by attending ED physician, no ST elevation <Dr. Jose David Georges, DO - Last Filed: 12/09/24 01:26> MDM History & Record Review Additional record(s) reviewed:: Prior ED visit and Prior labs Lab Data Labs: Laboratory Results - last 24 hr 12/08/24 12/08/24 21:20 23:32 WBC 20.3 H RBC 6.14 Hgb 18.4 H* Hct 53.8 MCV 87.6 MCH 30.0 MCHC 34.2 RDW Std Deviation 48.6 H RDW Coeff of Penelope 15.8 H Plt Count 267 MPV 9.0 Immature Gran % (Auto) 0.600 Neut % (Auto) 72.1 H Lymph % (Auto) 17.5 L Parke % (Auto) 8.6 Eos % (Auto) 0.4 Baso % (Auto) 0.8 Absolute Neuts (auto) 14.6 H Absolute Lymphs (auto) 3.55 Nucleated RBC % 0 Differential Comment SCANNED Sodium 139 Potassium 4.1 Chloride 102 Carbon Dioxide 17.3 L Anion Gap 20 H BUN 13 Creatinine 1.50 H Estim Creat Clear Calc 80.71 Est GFR (MDRD) Non-Af 51 L BUN/Creatinine Ratio 8.4 L Glucose 157 H Calcium 10.2 Troponin T High Sens 36 H D Troponin T Hi Sens 2 Hr 34 H Procalcitonin 0.15 H ABG Data ABG results: ABG 12/09/24 00:38 Specimen Type ART Sample Site R Brach pH 7.35 Bicarbonate Actual 24.1 Total CO2 25 Base Excess -2 O2 Saturation 93 L O2 % 21.0 ABG pCO2 43.5 ABG pO2 71 L Jose Test Positive O2 Delivery Device BiPAP Vent Mode Not entered Clinical Comments Home unit: 17/5 21% Radiography Chest X-Ray - ED: 2 View, Read by ED Physician and Read by Radiologist Diagnostic Testing: Clinical Impression(s) from Imaging Studies Chest X-Ray 12/08/24 21:48 IMPRESSION: 1. Right lower lobe opacity, which may represent atelectasis or pneumonitis/pneumonia. 2. Mild cardiomegaly. Reading Location: [id number] Chest CT 12/08/24 23:54 IMPRESSION: Coronary artery calcification (CAC) is is present Subsegmental atelectasis/consolidation in the lingula. Please evaluate to exclude superimposed pneumonia. Reading Location: [id number] PA and lateral chest x-ray was obtained. There are 2 views. On my independent interpretation, lung saucedo show right lower lobe opacity which may represent atelectasis or pneumonia. There is mild cardiomegaly. Bony thorax is normal. There is no acute process noted. Radiologist also interpreted the x-ray and agrees. EKG Initial EKG: Attestation: I personally reviewed and interpreted this EKG as follows: Interpretation: Atrial Fibrillation (174) and RBBB Treatment and Re-Evaluation :: I have personally performed a face to face assessment of the patient and have reviewed the MEGGAN Note. I performed a substantive portion of the visit including all aspects of the following. My rojas findings include: History: Patient presents with chest pain and shortness of breath that became worse today. Patient was seen here earlier and was admitted to the hospital. Patient states he has PTSD and this is usually triggered by admissions to the hospital. Patient signed out AGAINST MEDICAL ADVICE. Patient felt his heart race again tonight. Patient came back to the emergency department. Patient is agreeable for admission. Exam: Vital signs showed an elevated heart rate of 125, tachypnea of 38, and elevated blood pressure 164/117. Patient is afebrile. Oral mucosa is pink and moist. Neck is supple. Trachea is midline. Heart was irregularly irregular and tachycardic. Lungs are diminished bilaterally. There is adequate respiratory effort noted. Abdomen is soft. Bowel sounds are normal. There is no tenderness. Cranial nerves II through XII are intact. There are no focal motor or sensory deficits. Medical Decision Making: Differential diagnosis includes atrial fibrillation with rapid ventricular response, cardiac ischemia, electrolyte abnormality, pneumonia, bronchitis, and anxiety. EKG will be obtained to assess for cardiac dysrhythmia and cardiac ischemia. Chest x-ray will be obtained to assess for pneumonia and bronchitis. CBC will be obtained to assess for leukocytosis and anemia. Basic metabolic profile will be obtained to assess for electrolyte abnormality and renal function. High-sensitivity troponin will be obtained to assess for cardiac ischemia. 2-hour repeat high-sensitivity troponin will be obtained to assess for ongoing cardiac ischemia. Patient was given a dose of Cardizem here. Patient was also given baby aspirin and a dose of Ativan. Patient was also given a dose of Zofran for his nausea and vomiting. EKG was obtained. On my independent interpretation shows atrial fibrillation with a rate of 174. QRS interval was normal at 108 ms. QTc interval was slightly prolonged at 524 ms. [place] was normal at 50. There is a right bundle branch block pattern noted. There are nonspecific ST-T wave changes which are likely rate related. This was unchanged compared to previous EKG dated 09/15/2023. Chest x-ray was obtained. There are 2 views. On my independent interpretation, there is a right lower lobe infiltrate. This was unchanged compared to previous x-ray earlier today. CBC was reviewed. There is a leukocytosis of 20.3. Hemoglobin was slightly elevated at 18.4. Arterial blood gas was reviewed. pH was 7.35, bicarb was 24.1, pCO2 was 43.5, pO2 was 71, and oxygen saturation was 93%. Basic metabolic profile was reviewed. Creatinine was slightly elevated at 1.5. This was increased from previous result. Glucose was mildly elevated at 157. Initial high-sensitivity troponin was reviewed and was elevated at 36. 2-hour repeat high-sensitivity troponin was reviewed and was 34. While attempting to obtain urine, patient attempted to stand up out of the bed against the nurses advice. Patient fell forward onto the floor. Patient did not have any injuries. Patient did not hit his head or have any loss of consciousness. Patient was helped back into bed. Patient is agreeable for admission. Case was discussed with the hospitalist. She will admit the patient to her service. Patient understood and was agreeable with the plan. All questions were answered. <Dr. Jose David Georges, DO - Last Filed: 12/09/24 01:26> Critical Care Time Critical Care Time: Yes Critical care time (excluding procedures): 30-74 minutes (32), Including time spent:, Discussing w/Patient &/or Family/Restaurant Supervisor, Discussing w/Consultants, Arranging Admission or Transfer and Performing Direct Patient Care at Bedside Discharge Plan Dx/Rx/DC Orders Clinical Impression: Atrial fibrillation with rapid ventricular response, Acute respiratory failure with hypoxia, Pneumonia Disposition Disposition: [facility]
[2024-12-08 21:37] LABS: Differential Indicated SCAN CRITERIA MET; Hemoglobin 18.4 g/dL (13.0-16.5)
[2024-12-08] MEDS: Lorazepam 2 MG/ML WCH Syringe 1 MG IV (21:44)
--- NOTE | 2024-12-08 21:48 | RAD_ITS ---
PROCEDURE: CHEST PA AND LATERAL 12/08/2024 REASON FOR EXAM: CHEST PAIN TECHNIQUE: CHEST PA AND LATERAL COMPARISON: Chest radiograph earlier same day. FINDINGS: Visualization is limited by body habitus. Hardware: None. Heart: Heart size is mildly enlarged with pulmonary vascular congestion. Mediastinum: The mediastinal contour is stable. Lungs: Right lower lobe opacity. No obvious pleural effusion or pneumothorax. Bones: The bones are unremarkable. RAD/Chest PA and Lateral IMPRESSION: 1. Right lower lobe opacity, which may represent atelectasis or pneumonitis/pne umonia. 2. Mild cardiomegaly. Reading Location: [id number]
[2024-12-08 21:49] LABS: Anion Gap 20 (5-15); BUN 13 mg/dL (4-19); BUN/Creat Ratio 8.4 RATIO (10-20); Calcium,Total 10.2 mg/dL (7.6-11.0); Carbon Dioxide 17.3 mmol/L (21.0-32.0); Chloride 102 mmol/L (98-108); EST Glomerular Filtration Rate 51 (>60); Estimated Creatinine Clearance 80.71 ml/min (50-250); Glucose 157 mg/dL (70-99); Potassium 4.1 mmol/L (3.3-5.1); Sodium Level 139 mmol/L (133-145); Troponin T High Sensitivity 36 ng/L (<=22)
[2024-12-08] MEDS: Aspirin 81 MG TAB.CHEW 324 MG PO (22:12)
[2024-12-08 22:33] LABS: Differential Comment SCANNED
--- NOTE | 2024-12-08 23:50 | ED.RN ---
The patient had pressed his call light and notified us that he had to go to the bathroom. The patient had come in for tachycardia and SOB. This RN asked the SYSTEMS ARCHITECTURE ANALYST?to assist the patient in going to the bathroom by giving the patient a urinal. The SYSTEMS ARCHITECTURE ANALYST went into the patient's room and helped him with the urinal. The SYSTEMS ARCHITECTURE ANALYST had instructed the patient to not get out of bed d/t the symptoms he is currently experiencing. The patient's family had went to the waiting room to allow the patient some privacy. This RN was with another patient at this time, but was alerted by another RN that the patient had gotten out of bed and had fallen. The patient was found by the family when they returned to the room. This RN entered the room to find the patient on the floor in a side lying position. The patient was assisted back into the bed.?The patient had the call light within reach, had appropriate hospital socks on, the bed was locked and in the lowest position, all other safety measures were taken. Assessments completed and documented.?The patient denies any pain or injury. The patient states I was in the bed and then the next thing I know I was on the ground. The patient is not on any anticoagulants but did receive an ASA?medication while in the ED. notified and orders followed.?
[2024-12-08] MEDS: 0.9% Normal Saline 250 ML IV.SOLN. IV (23:51)
--- NOTE | 2024-12-08 23:54 | CT_ITS ---
PROCEDURE: CHEST WITHOUT CONTRAST 12/09/2024 REASON FOR EXAM: INFILTRATE TECHNIQUE: Chest CT without contrast. Coronal and Sagittal reconstruction series were provided. One or more dose reduction techniques were used (e.g., Automated exposure control, adjustment of the mA and/or kV according to patient size, use of iterative reconstruction technique RADIATION DOSE SUMMARY: CTDlvol: 20.15 mGy DLP: 805 mGycm COMPARISON: Chest radiograph on 12/08/2024. FINDINGS: Subsegmental atelectasis/consolidation in the lingula. Please evaluate to exclude superimposed pneumonia. Normal unenhanced main pulmonary artery and right and left pulmonary arteries. Normal bilateral peripheral pulmonary arteries. Normal thoracic aorta and visualized great vessels. There is no demonstrated aortic aneurysm. Normal heart and pericardium. Normal mediastinum. Normal hilar regions. Normal visualized trachea and bronchi. Normal pleura. Hepatomegaly with hepatic steatosis. CT/Chest without Contrast IMPRESSION: Coronary artery calcification (CAC) is is present Subsegmental atelectasis/consolidation in the lingula. Please evaluate to exclu de superimposed pneumonia. Reading Location: [place] [id number]
[2024-12-09] VITALS (10 sets, daily range): BP systolic 109–154; BP diastolic 52–87; PULSE 80–94; RESP 18–20; TEMP 36.5–36.8; O2SAT 90–93; BMI 48.4
[2024-12-09 00:01] LABS: Troponin T High Sens 2 HR 34 ng/L (<=22)
[2024-12-09 00:42] LABS: Allen Test Positive; Base Excess -2 mmol/L (-2 to +2); Bicarbonate 24.1 mmol/L (22-26); Blood Gas Specimen Type ART; Comment Home unit: 17/5 21%; Mode Not entered; O2 Delivery Device BiPAP; PO2 71 mmHG (75-100); SITE R Brach; SO2 93 % (95-99); Total Carbon Dioxide 25 mmol/L; pCO2 43.5 mmHg (35-45); pH 7.35 (7.35-7.45)
[2024-12-09 00:46] LABS: Procalcitonin 0.15 ng/mL (<=0.10)
--- NOTE | 2024-12-09 00:58 | PCM.HP.STD ---
[facility] - General General Date of Admission: 12/09/24 Date of Service: 12/09/24 Chief Complaint: Shortness of breath HPI Narrative MARCEL TURCIOS, is a 64 M who presented to the emergency department at [facility] on 12/08/2024 with a chief complaint of shortness of breath. Patient was here earlier on 12/08/2024 and due to his PTSD signed out AGAINST MEDICAL ADVICE. He came back due to worsening shortness of breath. He has known history of atrial fibrillation and was diagnosed about a year ago. He states he was discharged on metoprolol and it made him gain a lot of weight so he stopped taking it. He is also no longer anticoagulated so essentially is untreated. He was found to be in A-fib with RVR on his initial presentation on the . Initially he presented with worsening shortness of breath and palpitations. He indicated that it been going on for about a year. I suspect that is all related to his A-fib diagnosis. Patient did have orthopnea and wheezing but no PND. He still smokes about 4 packs of cigarettes daily. He denies any cough, fever, or chills. He said no chest pain. He has not had no nausea or vomiting or diaphoresis. He was initially admitted to PCU and was treated for acute exacerbation of COPD and A-fib with RVR however he left. He came back after family convinced him to come back and be evaluated and treated. Vital signs on presentation of his second visit to the emergency department on the showed a temperature of 98.3, heart rate 125, respiratory was 38 with short labored breathing and utilization of accessory muscles was present and he is in intermittent gasping. Blood pressure was 164/117 and pulse ox was 97% on room air. He was placed on his home BiPAP. This did appear to make him more comfortable. CBC on presentation showed a leukocytosis with white count of 20.3. His hemoglobin is elevated 18.4. We obtained an ABG which showed a pH of 7.35 a pCO2 of 43.5 and a pO2 of 71 on his home BiPAP at 21% with an estimated sats of 93%. Chemistry panel showed new anion gap metabolic acidosis and TAINA. Serum creatinine was 1.5 and when he presented earlier on the it was 1.01. Initial troponin was 36 with a delta of 34. Procalcitonin was obtained and found to be 0.15. EKG shows A-fib with RVR. Chest x-ray was suggestive of a right lower lobe opacity and mild cardiomegaly. A CT of the chest showed subsegmental atelectasis or consolidation of the lingula. He will be admitted to PCU and we will put him on oral Cardizem with hold parameters for his heart rate and start Eliquis. Given his white count, possible infiltrate on CT, and respiratory distress I will put him on Zosyn. [facility] Medical History PTSD (post-traumatic stress disorder) Foraminal stenosis of lumbosacral region ZAN (obstructive sleep apnea) Back pain Anxiety COPD (chronic obstructive pulmonary disease) Radiculitis of leg Lumbar canal stenosis Foraminal stenosis of lumbosacral region Back pain Anxiety COPD (chronic obstructive pulmonary disease) Obstructive sleep apnea Home Medications ?Medication ?Instructions ?Recorded ?Last Taken ?Type albuterol sulfate 1.25 mg/3 mL 1.25 mg inhalation Q4H PRN PRN 12/08/24 Unknown History solution for nebulization dyspnea budesonide-formoterol HFA 160 2 inh inhalation Q12H 12/08/24 Unknown History mcg-4.5 mcg/actuation aerosol inhaler (Breyna) magnesium oxide 400 mg (241.3 mg 400 mg PO BID 12/08/24 Unknown History magnesium) tablet Allergy/AdvReac Type Severity Reaction Status Date / Time codeine Allergy Hives Verified 12/08/24 21:09 Iodinated Contrast Media Allergy Hives Verified 12/08/24 21:09 (Iodinated Contrast Media - IV Dye) diclofenac AdvReac Swelling Verified 12/08/24 21:09 metaxalone AdvReac Swelling Verified 12/08/24 21:09 methylphenidate (From AdvReac hallucinati Verified 12/08/24 21:09 Ritalin) ons Phenylpiperazine AdvReac Other Verified 12/08/24 21:09 Antidepressant Tetracyclic Antidepressants AdvReac Other Verified 12/08/24 21:09 Tricyclic Antidepressants AdvReac Other Verified 12/08/24 21:09 and Tricy Family History Other Diabetes Hypertension Surgical History S/P epidural steroid injection Social History household members: family Smoking Status: Current every day smoker tobacco type: cigarettes and e-cigarettes alcohol intake: never substance use type: does not use ROS Constitutional Constitutional: Denies anorexia, change in weight, chills, fatigue, fever(s), malaise, night sweats, weakness or other Eyes Eyes: Denies blurry vision, change in eye color, change in vision, discharge from eye(s), double vision, erythema, eye pain, loss of vision or other ENT HEENT: Denies abnormal hearing, dysphagia, ear pain, epistaxis, headache(s), hearing loss, nasal congestion, nasal discharge, post nasal drip, sinus pressure, sore throat or other Cardiovascular Cardiovascular: Reports rapid heart rate; Denies chest pain, claudication, dyspnea on exertion, edema, lightheadedness, orthopnea, palpitations, paroxysmal nocturnal dyspnea, syncope or other Respiratory/Chest Respiratory/Chest: Reports dyspnea, shortness of breath at rest and wheezing; Denies cough, excessive phlegm production, hemoptysis, productive cough, shortness of breath with exertion or other Gastrointestinal Gastrointestinal: Denies abdominal pain, coffee ground emesis, constipation, diarrhea, dyspepsia, hematemesis, hematochezia, loose stools, melena, nausea, vomiting or other Genitourinary Genitourinary: Denies burning urination, difficulty urinating, dysuria, hematuria, nocturia, urinary frequency, urinary hesitancy, urinary incontinence, urinary urgency or other Musculoskeletal Musculoskeletal: Reports back pain Neurologic Neurologic: Denies abnormal gait, abnormal speech, confusion, disequilibrium, dizziness, focal weakness, headache(s), numbness, paresthesias, seizure-like activity, seizures, syncope, tingling, tremor(s) or other Psychiatric Psychiatric: Reports anxiety, depression and other Details: Severe PTSD Endocrine Endocrinology: Denies change in body appearance, cold intolerance, excessive sweating, heat intolerance, polydipsia, polyuria or other Hematologic/Lymphatic Hematologic/Lymphatic: Denies anemia, easy bleeding, easy bruising, lymphadenopathy or other Allergic/Immunologic Allergic/Immunologic: Denies rhinitis, hives, eczemia, asthma or other Vital Signs Vital Signs Vital Signs: 12/08/24 21:08 12/08/24 21:14 12/08/24 21:14 Temperature 98.3 F 98.3 F Temperature Source Temporal Oral Pulse Rate 125 H 180 H Respiratory Rate 38 H 34 H Respiratory Effort Short of Breath Labored Accessory Muscle Use Respiratory Depth Respiratory Pattern Gasping Blood Pressure 164/117 H 183/162 H Blood Pressure Mean 132 169 Pulse Ox 97 98 Oxygen Delivery Method Room Air Bi-pap Fraction of Inspired Oxygen (FIO2) 14 12/08/24 21:14 12/08/24 21:32 12/08/24 22:00 Temperature 98.8 F Temperature Source Oral Pulse Rate 114 H Respiratory Rate 24 H Respiratory Effort Short of Breath Labored Accessory Muscle Use Nasal Flaring Respiratory Depth Shallow Respiratory Pattern Tachypnea Blood Pressure 110/68 Blood Pressure Mean 82 Pulse Ox 95 92 Oxygen Delivery Method Bi-pap Bi-pap Bi-pap Fraction of Inspired Oxygen (FIO2) 14 14 14 12/08/24 23:00 12/08/24 23:50 12/08/24 23:51 Temperature 98.7 F 97.8 F 97.8 F Temperature Source Oral Pulse Rate 100 83 Respiratory Rate 20 H 24 H Respiratory Effort Normal Non-Labored Respiratory Depth Normal Respiratory Pattern Normal Blood Pressure 102/69 104/63 Blood Pressure Mean 80 76 Pulse Ox 90 98 93 Oxygen Delivery Method Bi-pap Airvo Fraction of Inspired Oxygen (FIO2) 14 12/09/24 00:00 Temperature 97.8 F Temperature Source Oral Pulse Rate 85 Respiratory Rate 18 Respiratory Effort Respiratory Depth Respiratory Pattern Blood Pressure 117/77 Blood Pressure Mean 90 Pulse Ox 93 Oxygen Delivery Method Bi-pap Fraction of Inspired Oxygen (FIO2) 14 Weight Weight: 170.7 kg Body Mass Index (BMI) 49.6 Physical Exam Const alert, oriented x3, no apparent distress and well nourished; Negative for average body habitus or healthy appearing Constitutional Narrative: Morbidly obese, upper middle-aged, white male, lying in bed in left side-lying on BiPAP, appears comfortable, nontoxic, interacts appropriately General Appearance: cooperative HEENT normocephalic, head/scalp atraumatic and moist oral mucous membranes HEENT Narrative: Mallampati 4, no thrush, patient currently on nasal CPAP, mild hearing loss Neck supple Neck Narrative: Trachea midline Resp no retractions, no use of accessory muscles and No clear to auscultation bilaterally Resp Narrative: Scattered wheezes with mild tachypnea, diffusely diminished Auscultation: wheezes; Negative for crackles or rhonchi Cardio S1 normal heart sound, S2 normal heart sound, no murmurs, no rub, no gallops and no clicks Cardio Narrative: Mild tachycardia with irregularly irregular rhythm, heart sounds are distant due to body habitus GI normal to inspection, nondistended, normoactive bowel sounds, soft to palpation and non-tender GI Narrative: Large protuberant abdomen Extremity no clubbing, cyanosis or edema Skin Skin Narrative: Multiple tattoos but no specific lesions noted Neuro oriented x3, moves all extremities and no focal motor deficits Speech: speech normal Psych Psych Narrative: Affect is slightly flattened patient appears mildly anxious Results Lab / Micro Data 12/08/24 21:20 12/08/24 21:20 Labs: Laboratory Results - last 24 hr 12/08/24 21:20: WBC 20.3 H, RBC 6.14, Hgb 18.4 H*, Hct 53.8, MCV 87.6, MCH 30.0, MCHC 34.2, RDW Std Deviation 48.6 H, RDW Coeff of Penelope 15.8 H, Plt Count 267, MPV 9.0, Immature Gran % (Auto) 0.600, Neut % (Auto) 72.1 H, Lymph % (Auto) 17.5 L, Calloway % (Auto) 8.6, Eos % (Auto) 0.4, Baso % (Auto) 0.8, Absolute Neuts (auto) 14.6 H, Absolute Lymphs (auto) 3.55, Nucleated RBC % 0, Differential Comment SCANNED, Sodium 139, Potassium 4.1, Chloride 102, Carbon Dioxide 17.3 L, Anion Gap 20 H, BUN 13, Creatinine 1.50 H, Estim Creat Clear Calc 80.71, Est GFR (MDRD) Non-Af 51 L, BUN/Creatinine Ratio 8.4 L, Glucose 157 H, Calcium 10.2, Troponin T High Sens 36 H D 12/08/24 23:32: Troponin T Hi Sens 2 Hr 34 H, Procalcitonin 0.15 H ABG Data ABG results: ABG 12/09/24 00:38 Specimen Type ART Sample Site R Brach pH 7.35 Bicarbonate Actual 24.1 Total CO2 25 Base Excess -2 O2 Saturation 93 L O2 % 21.0 ABG pCO2 43.5 ABG pO2 71 L Jose Test Positive O2 Delivery Device BiPAP Vent Mode Not entered Clinical Comments Home unit: 11/11 21% Imaging Radiology Impression Chest X-Ray 12/08/24 21:48 IMPRESSION: 1. Right lower lobe opacity, which may represent atelectasis or pneumonitis/pneumonia. 2. Mild cardiomegaly. Reading Location: [facility] Assessment & Plan Assessment/Plan (1) Pneumonia: (2) COPD exacerbation: (3) Hypoxia: (4) Atrial fibrillation with rapid ventricular response: (5) Erythrocytosis: (6) High anion gap metabolic acidosis: (7) TAINA (acute kidney injury): (8) Elevated troponin: PLAN: Plan Acute hypoxia and shortness of breath secondary to COPD exacerbation/+-Community-acquired pneumonia - Imaging does show consolidation in the lingula and white count is elevated - Will try to obtain sputum culture - COVID is negative - Check respiratory viral panel - Supplemental oxygen as needed was on BiPAP at the time of admission - Will cover with Zosyn for now as he is high risk for COPD - Mucinex 1200 p.o. twice daily - Solu-Medrol 40 every 8 - Scheduled and as needed nebulizers - I-S - Acapella - Will need ambulatory pulse ox prior to discharge - Continue nocturnal BiPAP at 17/5 TAINA - Will give 2 L IV fluids and then reassess in a.m. - Avoid nephrotoxins Elevated troponin - Mild elevation and etiology is suspected to be respiratory distress - Cycle cardiac enzymes - Patient without chest pain - Echocardiogram is pending Anion gap metabolic acidosis - Etiology is unclear - May have component of starvation ketosis as patient has not eaten - Hydration and repeat lab in a.m. A-fib with RVR - Was diagnosed a year ago and placed on metoprolol. - Patient states metoprolol made him gain weight so he stopped taking it - Also was not anticoagulated - Was given Lovenox earlier today so we will start Eliquis tomorrow 5 mg p.o. twice daily - Start Cardizem 30 every 8 with metoprolol intolerance previously - Check TSH - Cardiology consult as previously requested Erythrocytosis - Suspect ongoing issue related to his tobacco abuse - Possible chronic hypoxia either at rest or with exertion or both - Will need ambulatory pulse ox prior to discharge - Recommend outpatient follow-up COPD - Hold home inhalers - Treatment as above PTSD - Patient with severe PTSD which is why he left AMA earlier - Family was fortunately able to talk to him in the coming back for treatment - Will give as needed Ativan every 8 hours - Recommend outpatient follow-up with psychiatry for assistance in management Morbid obesity - BMI is 48.5 - Recommend weight loss - Complicates treatment, prognosis, outcomes Tobacco abuse - patient smokes 4 packs daily - Nicotine patch available - Recommend cessation DVT prophylaxis - Patient is currently on apixaban so fully anticoagulated CODE STATUS - DNR CCA with no intubation Charges/Coding Visit Charges Inpatient E&M: 52659 Init Hosp L3
--- OUTSIDE RECORDS SUMMARY | 2024-12-09 01:28 | XMS RPT_ITS | CCD ---
Author Organization [facility]iniSyut Care Team Providers Care File Clerk Name Role Phone KENA, CECILIA T Unavailable Unavailable KENA, CECILIA T Unavailable Unavailable KENA, CECILIA T Unavailable Unavailable KENA, CECILIA T Unavailable Unavailable Care Physician, No Primary Primary Care Provider Unavailable Dr. Clark Lerma Attending Provider Dr. Bertram Yi Emergency Provider [phone] Dr. Rod Castellanos Admit Provider [phone] Dr. Rod Castellanos Other Provider [phone] Dr. Clark Lerma Other Provider Dr. Jose [...] Dr. Jose David Sims MD Attending Provider Dr. Jose David Sims MD Referring Provider Dr. Shelbie Guaman DO Emergency Provider Delvis MAGANA, Dr. Mis Cartagena Admit Provider Delvis MAGANA, Dr. Mis Cartagena Attending Provider Delvis MAGANA, Dr. Mis Cartagena Referring Provider Rajni MAGANA, Dr. Molina Other Provider Unavailable Allergies Allergy Classification Reported Allergen(s) Allergy Type Date of Onset Reaction(s) Facility (6 sources) codeine; Translations: [CODEINE] Drug Allergy 04-29-20 AO, [facility] Repository (1 source) iodine; Translations: [IODINE] Drug Allergy 04-29-20 [facility] Repository (6 sources) methylphenidate; Translations: [METHYLPHENIDATE] Drug Allergy 11-22-19 16 AO, hallucinations [facility] Repository Comment on above: hallucinations (1 source) TRICYCLIC COMPOUNDS; Translations: [TRICYCLIC COMPOUNDS] Propensity to adverse reactions to drug (disorder) 04-23-20 [facility] Repository (4 sources) Diclofenac Drug Allergy 09-15-19 [facility] (4 sources) metaxalone Drug Allergy 09-15-19 [facility] (4 sources) traZODone Drug Allergy 09-15-19 Other [facility] Comment on above: catatonic state (4 sources) Triiodobenzoic Acids Allergy to substance 09-15-19 [facility] (4 sources) Tetracyclic Antidepressants Propensity to adverse reactions 09-15-19 [facility] [place] Comment on above: catatonic state (4 sources) Tricyclic Antidepressants and Tricy Propensity to adverse reactions 09-15-19 [facility] Comment on above: catatonic state (1 source) Diclofenac Drug Allergy 09-15-19 [facility] (1 source) metaxalone Drug Allergy 09-15-19 [facility] (1 source) Iodinated Contrast Media Drug allergy (disorder) 09-15-19 [facility] Repository (1 source) Tricyclic Antidepressants and Tricy Drug allergy (disorder) 09-15-19 [facility] Repository (1 source) Tetracyclic Antidepressants Drug allergy (disorder) 09-15-19 [facility] Repository (1 source) Phenylpiperazine Antidepressant Drug allergy (disorder) 09-15-19 [facility] Repository Medications Current Medications Medication Drug Class(es) Dates Sig (Normalized) Sig (Original) 24 hr metoprolol succinate 50 mg extended release oral tablet (3 sources) beta-Adrenergic Ortega Start: 09-16-2023 take 1 tablet by mouth once daily Metoprolol Succinate 50 mg Tablet Extended Release 24 Hr Active 50 mg PO DAILY September 16, 2023 12:00am Daniel (Nk) (1 source) Start: 09-15-2023 Daniel (Nk) Active September 15, 2023 12:00am Completed/Discontinued [...] Auto (Unsp spec) [#/Vol] 1.97 10*3/uL 0.83-4.51 [facility] Absolute neutrophil countOrd ered By: Martha Mead on 12-08-2024 Neutrophils (Bld) [#/Vol] 6.3 10*3/uL 2.0-7.7 [facility] Anion gap in Serum or Plasma Ordered By: Martha Mead on 12-08-2024 Anion gap [Moles/Vol] 14 mmol/L 5-15 [facility] Automated lymphocyte count a s percentage of total leukocytesOrdered By: Martha Mead on 12-08-2024 Lymphocytes/100 WBC Auto (Unsp spec) 21.7 % 19-41 [facility] BUN/creatinine ratioOrdered By: Martha Mead on 12-08-2024 Urea nitrogen/Creatinine [Mass ratio] 9.9 mg/mg Low 10-20 [facility] Basophil percentageOrdered B y: Martha Mead on 12-08-2024 Basophils/100 WBC (Bld) 0.9 % 0-1 [facility] CO2 (BldV) [Moles/Vol]Ordere d By: Shelbie Guaman on 12-08-2024 CO2 [Moles/Vol] 25 mmol/L 23-33 [facility] Carbon dioxide, total [Moles /volume] in Central venous bloodOrdered By: Martha Mead on 12-08-2024 CO2 [Moles/Vol] 19.0 mmol/L Low 21.0-32.0 [facility] Chloride assayOrdered By: Ros Mead on 12-08-2024 Chloride [Moles/Vol] 103 mmol/L 98-108 [facility] Eosinophil percentageOrdered By: Martha Mead on 12-08-2024 Eosinophils/100 WBC (Bld) 1.7 % 0-5 [facility] Erythrocyte distribution wid th ratioOrdered By: Martha Mead on 12-08-2024 Erythrocyte distribution width (RBC) [Ratio] 15.1 % High 11.6-14.6 [facility] Erythrocyte distribution wid th standard deviationOrdered By: Martha Mead on 12-08-2024 Erythrocyte distribution width (RBC) [Ratio] 48.0 fl High 35.1-43.9 [facility] Glomerular filtration rate ( GFR) estimation/1.73 sq m using serum, plasma, or whole bOrdered By: Martha Mead on 12-08-2024 GFR/1.73 sq M.predicted among non-blacks MDRD (S/P/Bld) [Vol rate/Area] 83 mL/min/{1.73_m2} >60 [facility] Comment on above: mL/min/1.73m2 CKD-EP I Creatinine Equation (2020) Hematocrit Auto (Bld) [Volum e fraction]Ordered By: Martha Mead on 12-08-2024 Hematocrit (Bld) [Volume fraction] 50.3 % 40-54 [facility] Hemoglobin measurementOrdere d By: Martha Mead on 12-08-2024 Hemoglobin (Bld) [Mass/Vol] 17.2 g/dL High 13.0-16.5 [facility] Immature granulocytes/100 WB C Auto (Bld)Ordered By: Martha Mead on 12-08-2024 Immature granulocytes/100 WBC (Bld) 0.600 % 0.0-0.9 [facility] Comment on above: IG% - Immature Granu locytes (promyelocytes, myelocytes and metamyelocytes) > 1% indicates that a LEFT SHIFT is Present. MCV (mean corpuscular volume ) determinationOrdered By: Martha Mead on 12-08-2024 MCV (RBC) [Entitic vol] 87.5 fL 80-94 [facility] Magnesium measurement (mass/ volume)Ordered By: Martha Mead on 12-08-2024 Magnesium (Unsp spec) [Mass/Vol] 2.0 mg/dL 1.5-2.2 [facility] Mean corpuscular hemoglobin (MCH) determinationOrdered By: Martha Mead on 12-08-2024 MCH (RBC) [Entitic mass] 29.9 pg 27.0-32.0 [facility] Mean corpuscular hemoglobin concentration (MCHC) determinationOrdered By: Martha Mead on 12-08-2024 MCHC (RBC) [Mass/Vol] 34.2 g/dL 32-36 [facility] Mean platelet volume determi nationOrdered By: Martha Mead on 12-08-2024 Platelet mean volume (Bld) [Entitic vol] 9.1 fL 6.2-12.0 [facility] Monocyte percentageOrdered B y: Martha Mead on 12-08-2024 Monocytes/100 WBC (Bld) 6.1 % 0-10 [facility] Natriuretic peptide.B prohor hector N-Terminal [Mass/volume] in Serum or PlasmaOrdered By: Martha Mead on 12-08-2024 Natriuretic peptide.B prohormone N-Terminal [Mass/Vol] 310 pg/mL <900 [facility] Comment on above: Heart Failure Unlike ly: < 300 pg/mLHeart Failure Likely< 50 Years: > 450 pg/mL50-75 Years: > 900 pg/mL>75 Years: > 1800 pg/mL Neutrophil percentageOrdered By: Martha Mead on 12-08-2024 Neutrophils/100 WBC (Bld) 69.0 % 47-70 [facility] No Panel InformationOrdered By: Shelbie Guaman on 12-08-2024 Blood Gas Sample Site Not entered [facility] Blood Gas Specimen Type MATHEW [facility] Oxygen Delivery Device Not entered [facility] Nucleated red blood cell per centageOrdered By: Martha Mead on 12-08-2024 Nucleated RBC/100 WBC (Bld) [Ratio] 0 % 0-5 [facility] Platelet countOrdered By: Ros Mead on 12-08-2024 Platelets (Bld) [#/Vol] 191 10*3/uL 150-450 [facility] Potassium measurement (mass/ volume)Ordered By: Martha Mead on 12-08-2024 Potassium (Unsp spec) [Mass/Vol] 4.2 mmol/L 3.3-5.1 [facility] Comment on above: Hemolysis present, R esults could be affected. RBC Auto (Bld) [#/Vol]Ordere d By: Martha Mead on 12-08-2024 RBC (Bld) [#/Vol] 5.75 10*6/uL 4.6-6.2 [facility] Serum creatinine measurement (mass/volume)Ordered By: Martha Mead on 12-08-2024 Creatinine [Mass/Vol] 1.01 mg/dL 0.70-1.20 [facility] Serum glucose measurement (m ass/volume)Ordered By: Martha Mead on 12-08-2024 Glucose [Mass/Vol] 135 mg/dL High 70-99 [facility] Serum or plasma calcium jarrod urement (mass/volume)Ordered By: Martha Mead on 12-08-2024 Calcium [Mass/Vol] 9.4 mg/dL 7.6-11.0 [facility] Serum or plasma urea nitroge n measurement (mass/volume)Ordered By: Martha Mead on 12-08-2024 Urea nitrogen [Mass/Vol] 10 mg/dL 4-19 [facility] Sodium levelOrdered By: Daniel Mead on 12-08-2024 Sodium [Moles/Vol] 136 mmol/L 133-145 [facility] TSH DL <= 0.005 mIU/L QnOrde red By: Martha Mead on 12-08-2024 TSH Qn 1.800 uIU/mL 0.300-4.20 0 [facility] Troponin T.cardiac [Mass/vol ume] in Serum or Plasma by High sensitivity methodOrdered By: Martha Mead on 12-08-2024 Troponin T.cardiac High sensitivity method [Mass/Vol] 18 ng/L <22 [facility] Troponin T.cardiac High sensitivity method [Mass/Vol] 14 ng/L <22 [facility] Venous blood base excess mikey surementOrdered By: Shelbie Guaman on 12-08-2024 Base excess Calc (BldV) [Moles/Vol] 0 mmol/L -1.0-3.5 [facility] Venous blood bicarbonate mikey surementOrdered By: Shelbie Guaman on 12-08-2024 HCO3 (Bld) [Moles/Vol] 24 mmol/L 22-26 [facility] Venous blood oxygen saturati on measurementOrdered By: Shelbie Guaman on 12-08-2024 Oxygen saturation in Blood 97 % High 50-70 [facility] Venous blood pH measurementO rdered By: Shelbie Guaman on 12-08-2024 pH (BldV) 7.45 [pH] High 7.32-7.42 [facility] Venous blood partial pressur e of carbon dioxide measurementOrdered By: Shelbie Guaman on 12-08-2024 CO2 (BldV) [Partial pressure] 34.4 mm[Hg] Low 41-51 [facility] Venous blood partial pressur e of oxygen measurementOrdered By: Shelbie Guaman on 12-08-2024 Oxygen (BldV) [Partial pressure] 86 mm[Hg] High 25-40 [facility] White blood cell (WBC) count Ordered By: Martha Mead on 12-08-2024 WBC (Bld) [#/Vol] 9.1 10*3/uL 4.4-11.0 [facility] Absolute lymphocyte countOrd ered By: Jose David Sims on 12-07-2024 Lymphocytes Auto (Unsp spec) [#/Vol] 2.41 10*3/uL 0.83-4.51 [facility] Absolute neutrophil countOrd ered By: Jose David Sims on 12-07-2024 Neutrophils (Bld) [#/Vol] 5.7 10*3/uL 2.0-7.7 [facility] Anion gap in Serum or Plasma Ordered By: Jose David Sims on 12-07-2024 Anion gap [Moles/Vol] 13 mmol/L 5-15 [facility] Automated lymphocyte count a s percentage of total leukocytesOrdered By: Jose David Sims on 12-07-2024 Lymphocytes/100 WBC Auto (Unsp spec) 25.7 % 19-41 [facility] BUN/creatinine ratioOrdered By: Jose David Sims on 12-07-2024 Urea nitrogen/Creatinine [Mass ratio] 10.5 mg/mg 10-20 [facility] Basophil percentageOrdered B y: Jose David Sims on 12-07-2024 Basophils/100 WBC (Bld) 1.1 % High 0-1 [facility] Bilirubin, totalOrdered By: Jose David Sims on 12-07-2024 Bilirubin [Mass/Vol] 0.49 mg/dL 0.00-1.30 [facility] Carbon dioxide, total [Moles /volume] in Central venous bloodOrdered By: Jose David Sims on 12-07-2024 CO2 [Moles/Vol] 21.2 mmol/L 21.0-32.0 [facility] Chloride assayOrdered By: Kimani Sims on 12-07-2024 Chloride [Moles/Vol] 104 mmol/L 98-108 [facility] Eosinophil percentageOrdered By: Jose David Sims on 12-07-2024 Eosinophils/100 WBC (Bld) 4.3 % 0-5 [facility] Erythrocyte distribution wid th ratioOrdered By: Jose David Sims on 12-07-2024 Erythrocyte distribution width (RBC) [Ratio] 15.1 % High 11.6-14.6 [facility] Erythrocyte distribution wid th standard deviationOrdered By: Jose David Sims on 12-07-2024 Erythrocyte distribution width (RBC) [Ratio] 49.7 fl High 35.1-43.9 [facility] Glomerular filtration rate ( GFR) estimation/1.73 sq m using serum, plasma, or whole bOrdered By: Jose David Sims on 12-07-2024 GFR/1.73 sq M.predicted among non-blacks MDRD (S/P/Bld) [Vol rate/Area] 79 mL/min/{1.73_m2} >60 [facility] Comment on above: mL/min/1.73m2 CKD-EP I Creatinine Equation (2020) Hematocrit Auto (Bld) [Volum e fraction]Ordered By: Jose David Sims on 12-07-2024 Hematocrit (Bld) [Volume fraction] 48.0 % 40-54 [facility] Hemoglobin measurementOrdere d By: Jose David Sims on 12-07-2024 Hemoglobin (Bld) [Mass/Vol] 15.8 g/dL 13.0-16.5 [facility] Immature granulocytes/100 WB C Auto (Bld)Ordered By: Jose David Sims on 12-07-2024 Immature granulocytes/100 WBC (Bld) 0.600 % 0.0-0.9 [facility] Comment on above: IG% - Immature Granu locytes (promyelocytes, myelocytes and metamyelocytes) > 1% indicates that a LEFT SHIFT is Present. Laboratory - Chemistry and C hemistry - challengeOrdered By: Jose David Sims on 12-07-2024 AST [Catalytic activity/Vol] 30 U/L <38 [facility] MCV (mean corpuscular volume ) determinationOrdered By: Jose David Sims on 12-07-2024 MCV (RBC) [Entitic vol] 90.1 fL 80-94 [facility] Magnesium measurement (mass/ volume)Ordered By: Jose David Sims on 12-07-2024 Magnesium (Unsp spec) [Mass/Vol] 2.0 mg/dL 1.5-2.2 [facility] Mean corpuscular hemoglobin (MCH) determinationOrdered By: Jose David Sims on 12-07-2024 MCH (RBC) [Entitic mass] 29.6 pg 27.0-32.0 [facility] Mean corpuscular hemoglobin concentration (MCHC) determinationOrdered By: Jose David Sims on 12-07-2024 MCHC (RBC) [Mass/Vol] 32.9 g/dL 32-36 [facility] Mean platelet volume determi nationOrdered By: Jose David Sims on 12-07-2024 Platelet mean volume (Bld) [Entitic vol] 9.2 fL 6.2-12.0 [facility] Monocyte percentageOrdered B y: Jose David Sims on 12-07-2024 Monocytes/100 WBC (Bld) 7.1 % 0-10 [facility] Neutrophil percentageOrdered By: Jose David Sims on 12-07-2024 Neutrophils/100 WBC (Bld) 61.2 % 47-70 [facility] Nucleated red blood cell per centageOrdered By: Jose David Sims on 12-07-2024 Nucleated RBC/100 WBC (Bld) [Ratio] 0 % 0-5 [facility] Platelet countOrdered By: Kimani Sims on 12-07-2024 Platelets (Bld) [#/Vol] 207 10*3/uL 150-450 [facility] Potassium measurement (mass/ volume)Ordered By: Jose David Sims on 12-07-2024 Potassium (Unsp spec) [Mass/Vol] 4.2 mmol/L 3.3-5.1 [facility] RBC Auto (Bld) [#/Vol]Ordere d By: Jose David Sims on 12-07-2024 RBC (Bld) [#/Vol] 5.33 10*6/uL 4.6-6.2 [facility] Serum creatinine measurement (mass/volume)Ordered By: Jose David Sims on 12-07-2024 Creatinine [Mass/Vol] 1.05 mg/dL 0.70-1.20 [facility] Serum globulin measurementOr dered By: Jose David Sims on 12-07-2024 Globulin (S) [Mass/Vol] 3.0 g/dL 2.2-4.2 [facility] Serum glucose measurement (m ass/volume)Ordered By: Jose David Sims on 12-07-2024 Glucose [Mass/Vol] 137 mg/dL High 70-99 [facility] Serum or plasma alanine crawford otransferase (ALT) measurementOrdered By: Jose David Sims on 12-07-2024 ALT [Catalytic activity/Vol] 44 U/L <47 [facility] Serum or plasma albumin jarrod urement (mass/volume)Ordered By: Jose David Sims on 12-07-2024 Albumin [Mass/Vol] 4.3 g/dL 3.4-4.8 [facility] Serum or plasma albumin/glob ulin mass ratioOrdered By: Jose David Sims on 12-07-2024 Albumin/Globulin [Mass ratio] 1.4 {ratio} 0.9-2.4 [facility] Serum or plasma alkaline christina sphatase measurementOrdered By: Jose David Sims on 12-07-2024 ALP [Catalytic activity/Vol] 78 U/L 40-129 [facility] Serum or plasma calcium jarrod urement (mass/volume)Ordered By: Jose David Sims on 12-07-2024 Calcium [Mass/Vol] 9.4 mg/dL 7.6-11.0 [facility] Serum or plasma cholesterol in HDL measurement (mass/volume)Ordered By: Jose David Sims on 12-07-2024 Cholesterol in HDL [Mass/Vol] 55 mg/dL >40 [facility] Comment on above: National Cholesterol Education Program (NCEP) guidelines:<40 mg/dL: Low HDL-cholesterol (major risk factor for CHD)>= 60 mg/dL: High HDL-cholesterol (negative risk factor for CHD)HDL-cholesterol is affected by a number of factors, e.g. smoking, exercise, hormones, sex and age. Serum or plasma cholesterol measurement (mass/volume)Ordered By: Jose David Sims on 12-07-2024 Cholesterol [Mass/Vol] 212 mg/dL High <201 [facility] Comment on above: Cholesterol level, D esirable <200 mg/dLBorderline high cholesterol 200-239 mg/dLHigh cholesterol >=240 mg/dLRecommendations of the NCEP Adult Treatment Panel for the following risk-cutoff thresholds for the [place] Stateless population. Serum or plasma urea nitroge n measurement (mass/volume)Ordered By: Jose David Sims on 12-07-2024 Urea nitrogen [Mass/Vol] 11 mg/dL 4-19 [facility] Sodium levelOrdered By: Jose David Sims on 12-07-2024 Sodium [Moles/Vol] 138 mmol/L 133-145 [facility] TSH DL <= 0.005 mIU/L QnOrde red By: Jose David Sims on 12-07-2024 TSH Qn 2.510 uIU/mL 0.300-4.20 0 [facility] Total proteinOrdered By: Carolyn Sims on 12-07-2024 Protein [Mass/Vol] 7.2 g/dL 5.9-8.4 [facility] White blood cell (WBC) count Ordered By: Jose David Levi on 12-07-2024 WBC (Bld) [#/Vol] 9.4 10*3/uL 4.4-11.0 [facility] Culture, Blood (WB)on 2023 CUB No growth in 5 days. Normal [facility] Comment on above: Performed By: #### M 200.1000 #### [facility] [address] [place], [address] Performed By: #### L 100.0500, L500.2500 #### [facility] [address] [place], [address] CBC W/Diff, Automatedon 08-27 PATH REV Reviewed Normal [facility] Comment on above: Result Comment: Poly cythemia Clinical correlation necessary. Saravanan Santiago M.D. 09/17/23 AMENDED REPORT 09/17/23 0927 PATH REV previously reported as: October Performed By: #### L 501.5200, L501.9520, L503.6005, L503.6620, L100.0100, L300.3900, L300.4310, L500.2500, L500.3400, L501.2450, L501.4020 #### [facility] [address] [place], [address] Basic Metabolic Profile (BMP )on 09-16-2023 BUN/CRE 25.0 RATIO High 10-20 [facility] Comment on above: Performed By: #### L 100.0500, L500.2500 #### [facility] [address] [place], [address] CA,Total 9.1 mg/dL Normal 8.5-10.1 [facility] Comment on above: Performed By: #### L 100.0500, L500.2500 #### [facility] [address] [place], [address] Chloride [Moles/Vol] 109 mmol/L High 98-107 [facility] Comment on above: Performed By: #### L 100.0500, L500.2500 #### [facility] [address] [place], [address] CO2 [Moles/Vol] 23.0 mmol/L Normal 21.0-32.0 [facility] Comment on above: Performed By: #### L 100.0500, L500.2500 #### [facility] [address] [place], [address] Creatinine [Mass/Vol] 1.04 mg/dL Normal 0.70-1.30 [facility] Comment on above: Result Comment: The validity of the calculated GFR GFRAA in patients over 70 years has not been determined. Clinical correlation is essential. Performed By: #### L 100.0500, L500.2500 #### [facility] [address] [place], [address] ECRCL 116.91 ml/min Normal [facility] Comment on above: Performed By: #### L 100.0500, L500.2500 #### [facility] [address] [place], [address] EST GFR - AA 93 mL/min Normal >60 [facility] Comment on above: Result Comment: Afri can Stateless GFR Calc Performed By: #### L 100.0500, L500.2500 #### [facility] [address] [place], [address] GAP 6 Normal 5-15 [facility] Comment on above: Performed By: #### L 100.0500, L500.2500 #### [facility] [address] [place], [address] GFR/1.73 sq M.predicted among non-blacks MDRD (S/P/Bld) [Vol rate/Area] 77 mL/min/{1.73_m2} Normal >60 [facility] Comment on above: Result Comment: Non- GFR Calc Performed By: #### L 100.0500, L500.2500 #### [facility] [address] [place], [address] Glucose [Mass/Vol] 125 mg/dL High 74-106 [facility] Comment on above: Result Comment: Fast ing Glucose result from 100 to 125 mg/dL suggests IMPAIRED HOMEOSTASIS per A.D.A. criteria. Performed By: #### L 100.0500, L500.2500 #### [facility] [address] [place], [address] Potassium [Moles/Vol] 4.0 mmol/L Normal 3.5-5.1 [facility] Comment on above: Performed By: #### L 100.0500, L500.2500 #### [facility] [address] [place], [address] Sodium [Moles/Vol] 138 mmol/L Normal 136-145 [facility] Comment on above: Performed By: #### L 100.0500, L500.2500 #### [facility] [address] [place], [address] Urea nitrogen [Mass/Vol] 26 mg/dL High 7-18 [facility] Comment on above: Performed By: #### L 100.0500, L500.2500 #### [facility] [address] [place], [address] Basophil percentageOrdered B y: Rod Castellanos on 09-16-2023 Chloride [Moles/Vol] 109 mmol/L 98-107 [facility] Glucose [Mass/Vol] 125 mg/dL 74-106 [facility] Comment on above: Fasting Glucose resu lt from 100 to 125 mg/dL suggests IMPAIRED HOMEOSTASIS per A.D.A. criteria. Hemoglobin (Bld) [Mass/Vol] 14.5 g/dL 13.0-16.5 [facility] Potassium [Moles/Vol] 4.0 mmol/L 3.5-5.1 [facility] Sodium [Moles/Vol] 138 mmol/L 136-145 [facility] WBC (Bld) [#/Vol] 7.9 10*3/uL 4.4-11.0 [facility] CBC-Complete Blood Cnt No Shreya sanchez 09-16-2023 Erythrocyte distribution width (RBC) [Ratio] 14.9 % High 11.6-14.6 [facility] Comment on above: Performed By: #### L 100.0500, L500.2500 #### [facility] [address] [place], [address] Hematocrit (Bld) [Volume fraction] 45.0 % Normal 40-54 [facility] Comment on above: Performed By: #### L 100.0500, L500.2500 #### [facility] [address] [place], [address] Hemoglobin (Bld) [Mass/Vol] 14.5 g/dL Normal 13.0-16.5 [facility] Comment on above: Performed By: #### L 100.0500, L500.2500 #### [facility] [address] [place], [address] MCH (RBC) [Entitic mass] 28.8 pg Normal 27.0-32.0 [facility] Comment on above: Performed By: #### L 100.0500, L500.2500 #### [facility] [address] [place], [address] MCHC (RBC) [Mass/Vol] 32.2 g/dL Normal 32-36 [facility] Comment on above: Performed By: #### L 100.0500, L500.2500 #### [facility] [address] [place], [address] MCV (RBC) [Entitic vol] 89.3 fL Normal 80-94 [facility] Comment on above: Performed By: #### L 100.0500, L500.2500 #### [facility] [address] [place], [address] Platelet mean volume (Bld) [Entitic vol] 9.4 fL Normal 6.2-12.0 [facility] Comment on above: Performed By: #### L 100.0500, L500.2500 #### [facility] [address] [place], [address] Platelets (Bld) [#/Vol] 146 10*3/uL Low 150-450 [facility] Comment on above: Performed By: #### L 100.0500, L500.2500 #### [facility] [address] [place], [address] RBC (Bld) [#/Vol] 5.04 10*6/uL Normal 4.6-6.2 [facility] Comment on above: Performed By: #### L 100.0500, L500.2500 #### [facility] [address] [place], [address] RDW SD 48.8 fl High 35.1-43.9 [facility] Comment on above: Performed By: #### L 100.0500, L500.2500 #### [facility] [address] [place], [address] WBC (Bld) [#/Vol] 7.9 10*3/uL Normal 4.4-11.0 [facility] Comment on above: Performed By: #### L 100.0500, L500.2500 #### [facility] [address] [place], [address] Determination of erythrocyte mean corpuscular volume (MCV)Ordered By: Rod Castellanos on 09-16-2023 MCV (RBC) [Entitic vol] 89.3 fL 80-94 [facility] Erythrocyte distribution wid th ratioOrdered By: Rod Castellanos on 09-16-2023 Erythrocyte distribution width (RBC) [Ratio] 14.9 % 11.6-14.6 [facility] Erythrocyte distribution wid th standard deviationOrdered By: Rod Castellanos on 09-16-2023 Erythrocyte distribution width (RBC) [Entitic vol] 48.8 fL 35.1-43.9 [facility] Hematocrit Auto (Bld) [Volum e fraction]Ordered By: Rod Castellanos on 09-16-2023 Hematocrit (Bld) [Volume fraction] 45.0 % 40-54 [facility] Laboratory - Chemistry and C hemistry - challengeOrdered By: Rod Castellanos on 09-16-2023 CO2 [Moles/Vol] 23.0 mmol/L 21.0-32.0 [facility] Urea nitrogen/Creatinine [Mass ratio] 25.0 mg/mg 10-20 [facility] Laboratory - Hematology and Cell countsOrdered By: Rod Castellanos on 09-16-2023 MCH (RBC) [Entitic mass] 28.8 pg 27.0-32.0 [facility] MCHC (RBC) [Mass/Vol] 32.2 g/dL 32-36 [facility] Platelet mean volume (Bld) [Entitic vol] 9.4 fL 6.2-12.0 [facility] Platelets (Bld) [#/Vol] 146 10*3/uL 150-450 [facility] No Panel InformationOrdered By: Rod Castellanos on 09-16-2023 Estimated Creatinine Clearance Calc 116.91 ml/min [facility] Estimated GFR (MDRD) Amer 93 mL/min >60 [facility] Comment on above: GFR Calc Estimated GFR (MDRD) Non-Af Amer 77 mL/min >60 [facility] Comment on above: Non- GFR Calc RBC Auto (Bld) [#/Vol]Ordere d By: Rod Castellanos on 09-16-2023 RBC (Bld) [#/Vol] 5.04 10*6/uL 4.6-6.2 [facility] Serum or plasma calcium jarrod urement (mass/volume)Ordered By: Rod Castellanos on 09-16-2023 Calcium [Mass/Vol] 9.1 mg/dL 8.5-10.1 [facility] Serum or plasma creatinine m easurement (mass/volume)Ordered By: Rod Castellanos on 09-16-2023 Creatinine [Mass/Vol] 1.04 mg/dL 0.70-1.30 [facility] Comment on above: The validity of the calculated GFR & GFRAA in patients over 70 years has not been determined. Clinical correlation is essential. Serum or plasma urea nitroge n measurement (mass/volume)Ordered By: Rod Castellanos on 09-16-2023 Urea nitrogen [Mass/Vol] 26 mg/dL 01-12 [facility] Thin prep Papanicolaou smear with manual screeningOrdered By: Rod Castellanos on 09-16-2023 Thin prep Papanicolaou smear with manual screening 6 11-09 [facility] 12 Lead EKGon 09-15-2023 12 Lead EKG [facility] [address] [place] [address] 12 Lead EKG 09/15/23 1729 MR#: [id number] Acct: [id number] Name: MARCEL TURCIOS Rep #: [id number] : 1960 62 From: Asael Marino MD [...] DATA IS UNCONFIRMED Confirmed by Asael Marino ([id number]), business editor SONA KNIGHT ([id number]) on 09/17/2023 6:19:15 AM Referred By: Confirmed By:Asael Marino 09/17/23 0619 Date Asael Marino MD CC: Dr. Rod Castellanos, ; Dr. Jose David Majano DO; No Primary Care Physician Signed Normal [facility] 12 Lead EKG [facility] [address] [place] [address] 12 Lead EKG 09/15/23 1140 MR#: [id number] Acct: [id number] Name: MARCEL TURCIOS Rep #: [id number] : 1960 62 From: Asael Marino MD Attending Dr: Dr. Jose David Majano DO Status: ADM IN Ordering Dr: Bertram Yi DO Date: 09/15/23 Location: [facility] Sex: M C Admitted: 09/15/23 Test [...] undetermined Abnormal ECG Confirmed by Asael Marino ([id number]), business editor SONA KNIGHT ([id number]) on 09/16/2023 10:46:01 AM Referred By: Confirmed By:Asael Marino 09/16/23 1046 Date Asael Marino MD CC: Dr. Bertram Yi, ; Dr. Jose David Majano DO; No Primary Care Physician Signed Normal [facility] Absolute lymphocyte countOrd ered By: Bertram Yi on 09-15-2023 Lymphocytes Auto (Unsp spec) [#/Vol] 2.01 10*3/uL 0.83-4.51 [facility] Activated partial thrombopla stin time (aPTT) in platelet poor plasma by coagulation aOrdered By: Bertram Yi on 09-15-2023 aPTT Coag (PPP) [Time] 26.4 s 24.1-36.2 [facility] Automated lymphocyte count a s percentage of total leukocytesOrdered By: Bertram Yi on 09-15-2023 Lymphocytes/100 WBC Auto (Unsp spec) 20.5 % 19-41 [facility] BNP,B-Type NATRIURETIC PEPTI Won 09-15-2023 Natriuretic peptide B (Bld) [Mass/Vol] 165.1 pg/mL High 0-100 [facility] Comment on above: Performed By: #### L 501.5200, L501.9520, L503.6005, L503.6620, L100.0100, L300.3900, L300.4310, L500.2500, L500.3400, L501.2450, L501.4020 ####[facility] [address] [place], [address] Basic Metabolic Profile (BMP )on 09-15-2023 BUN/CRE 14.1 RATIO Normal - [facility] Comment on above: Order Comment: 'TROP ' Serial specimen #1, #2 or #3: 1 Performed By: #### L 501.5200, L501.9520, L503.6005, L503.6620, L100.0100, L300.3900, L300.4310, L500.2500, L500.3400, L501.2450, L501.4020 #### [facility] [address] [place], [place], [phone] (294) CA,Total 9.2 mg/dL Normal 8.5-10.1 [facility] Comment on above: Order Comment: 'TROP ' Serial specimen #1, #2 or #3: 1 Performed By: #### L 501.5200, L501.9520, L503.6005, L503.6620, L100.0100, L300.3900, L300.4310, L500.2500, L500.3400, L501.2450, L501.4020 #### [facility] [address] [place], [address] Chloride [Moles/Vol] 105 mmol/L Normal 98-107 [facility] Comment on above: Order Comment: 'TROP ' Serial specimen #1, #2 or #3: 1 Performed By: #### L 501.5200, L501.9520, L503.6005, L503.6620, L100.0100, L300.3900, L300.4310, L500.2500, L500.3400, L501.2450, L501.4020 #### [facility] [address] [place], [address] CO2 [Moles/Vol] 22.0 mmol/L Normal 21.0-32.0 [facility] Comment on above: Order Comment: 'TROP ' Serial specimen #1, #2 or #3: 1 Performed By: #### L 501.5200, L501.9520, L503.6005, L503.6620, L100.0100, L300.3900, L300.4310, L500.2500, L500.3400, L501.2450, L501.4020 #### [facility] [address] [place], [address] Creatinine [Mass/Vol] 1.42 mg/dL High 0.70-1.30 [facility] Comment on above: Order Comment: 'TROP ' Serial specimen #1, #2 or #3: 1 Result Comment: The validity of the calculated GFR GFRAA in patients over 70 years has not been determined. Clinical correlation is essential. Performed By: #### L 501.5200, L501.9520, L503.6005, L503.6620, L100.0100, L300.3900, L300.4310, L500.2500, L500.3400, L501.2450, L501.4020 #### [facility] [address] [place], [address] ECRCL 79.58 ml/min Normal [facility] Comment on above: Order Comment: 'TROP ' Serial specimen #1, #2 or #3: 1 Performed By: #### L 501.5200, L501.9520, L503.6005, L503.6620, L100.0100, L300.3900, L300.4310, L500.2500, L500.3400, L501.2450, L501.4020 #### [facility] [address] [place], [place], [address] (342) EST GFR - AA 65 mL/min Normal >60 [facility] Comment on above: Order Comment: 'TROP ' Serial specimen #1, #2 or #3: 1 Result Comment: Afri can Stateless GFR Calc Performed By: #### L 501.5200, L501.9520, L503.6005, L503.6620, L100.0100, L300.3900, L300.4310, L500.2500, L500.3400, L501.2450, L501.4020 #### [facility] [address] [place], [address] GAP 11 Normal 5-15 [facility] Comment on above: Order Comment: 'TROP ' Serial specimen #1, #2 or #3: 1 Performed By: #### L 501.5200, L501.9520, L503.6005, L503.6620, L100.0100, L300.3900, L300.4310, L500.2500, L500.3400, L501.2450, L501.4020 #### [facility] [address] [place], [place], [phone] (021) GFR/1.73 sq M.predicted among non-blacks MDRD (S/P/Bld) [Vol rate/Area] 53 mL/min/{1.73_m2} Low >60 [facility] Comment on above: Order Comment: 'TROP ' Serial specimen #1, #2 or #3: 1 Result Comment: Non- GFR Calc Performed By: #### L 501.5200, L501.9520, L503.6005, L503.6620, L100.0100, L300.3900, L300.4310, L500.2500, L500.3400, L501.2450, L501.4020 #### [facility] [address] [place], [address] Glucose [Mass/Vol] 145 mg/dL High 74-106 [facility] Comment on above: Order Comment: 'TROP ' Serial specimen #1, #2 or #3: 1 Result Comment: Fast ing Glucose result greater than or equal to 126 mg/dL suggests DIABETES MELLITUS per A.D.A. criteria. Performed By: #### L 501.5200, L501.9520, L503.6005, L503.6620, L100.0100, L300.3900, L300.4310, L500.2500, L500.3400, L501.2450, L501.4020 #### [facility] [address] [place], [address] Potassium [Moles/Vol] 4.1 mmol/L Normal 3.5-5.1 [facility] Comment on above: Order Comment: 'TROP ' Serial specimen #1, #2 or #3: 1 Performed By: #### L 501.5200, L501.9520, L503.6005, L503.6620, L100.0100, L300.3900, L300.4310, L500.2500, L500.3400, L501.2450, L501.4020 #### [facility] [address] [place], [address] Sodium [Moles/Vol] 138 mmol/L Normal 136-145 [facility] Comment on above: Order Comment: 'TROP ' Serial specimen #1, #2 or #3: 1 Performed By: #### L 501.5200, L501.9520, L503.6005, L503.6620, L100.0100, L300.3900, L300.4310, L500.2500, L500.3400, L501.2450, L501.4020 #### [facility] [address] [place], [address] Urea nitrogen [Mass/Vol] 20 mg/dL High 7-18 [facility] Comment on above: Order Comment: 'TROP ' Serial specimen #1, #2 or #3: 1 Performed By: #### L 501.5200, L501.9520, L503.6005, L503.6620, L100.0100, L300.3900, L300.4310, L500.2500, L500.3400, L501.2450, L501.4020 #### [facility] [address] [place], [address] Basophil percentageOrdered B y: Rod Castellanos on 09-15-2023 Basophil percentage 0-5 SEEN /hpf 0-5 [facility] Cholesterol [Mass/Vol] 174 mg/dL Normal 200 [facility] Comment on above: <200 mg/dL Desirable 200-240 mg/dL Borderline >240 mg/dL High Risk Result Comment: <200 mg/dL Desirable 200-240 mg/dL Borderline >240 mg/dL High Risk Performed By: #### L 500.4100, L501.9520, L501.9985 ####[facility] [address] [place], [address] Triglyceride [Mass/Vol] 173 mg/dL Normal [facility] Comment on above: The drugs N-Acetylcy steine [...] Performed By: #### L 500.4100, L501.9520, L501.9985 ####[facility] [address] [place], [place], [address] Basophil percentageOrdered B y: Bertram Yi on 09-15-2023 Lactate [Moles/Vol] 1.7 mmol/L Normal 0.4-1.9 [facility] Comment on above: Order Comment: Y Performed By: #### L 501.5200, L501.9520, L503.6005, L503.6620, L100.0100, L300.3900, L300.4310, L500.2500, L500.3400, L501.2450, L501.4020 ####[facility] [address] [facility] [address] [place], [place], [id number] Basophils/100 WBC (Bld) 0.9 % 0-1 [facility] Bilirubin [Mass/Vol] 0.80 mg/dL 0.20-1.00 [facility] Comment on above: For patients on eltr ombopag therapy, use of Dimension [place] TBIL is not recommended. Chloride [Moles/Vol] 105 mmol/L 98-107 [facility] Eosinophils/100 WBC (Bld) 2.1 % 0-5 [facility] Glucose [Mass/Vol] 145 mg/dL 74-106 [facility] Comment on above: Fasting Glucose resu lt greater than or equal to 126 mg/dL suggests DIABETES MELLITUS per A.D.A. criteria. Hemoglobin (Bld) [Mass/Vol] 18.3 g/dL 13.0-16.5 [facility] Comment on above: CRITICAL VALUE VERIF IED. CALLED TO FGVHHL03/20/24 Alla6 Ne Castro.RESULTS READ BACK BY SAME . Monocytes/100 WBC (Bld) 11.9 % 0-10 [facility] Neutrophils (Bld) [#/Vol] 6.3 10*3/uL 2.0-7.7 [facility] Neutrophils/100 WBC (Bld) 63.9 % 47-70 [facility] Potassium [Moles/Vol] 4.1 mmol/L 3.5-5.1 [facility] Protein [Mass/Vol] 7.7 g/dL 6.4-8.2 [facility] Sodium [Moles/Vol] 138 mmol/L 136-145 [facility] WBC (Bld) [#/Vol] 9.8 10*3/uL 4.4-11.0 [facility] Bilirubin Test strip Ql (U)O rdered By: Rod Castlelanos on 09-15-2023 Bilirubin Ql (U) 3 mg/dL Negative [facility] Comment on above: COLOR OF URINE MAY A FFECT DIPSTICK RESULTS. Chest 1 View (Portable)on Chest 1 View (Portable) [facility] Imaging Services [address] [place] [address] Chest 1 View (Portable) MR#: [id number] Acct: [id number] Name: MARCEL TURCIOS Rep #: [id number] : 1960 M 62 From: Emory klein MD PCP: Dr. Lola Cartagena MD Status: PRE ER Study: Chest 1 View (Portable) Date of Exam: 09/15/23 Exam# [id number] Ordering Dr: Bertram Yi DO :[id number] STUDY: X-RAY CHEST REASON FOR EXAM: Male, [...] 12:50 EDT Reading Location ID and State: [facility] / [place] , Service support , CC: Dr. Bertram Yi DO; Dr. Lola Cartagena MD Computational Chemist: Signed Normal [facility] Consultation - Cardiologyon 09-15-2023 Consultation - Cardiology [facility] Medical Records Department [address] [place] [address] Consultation - Cardiology 09/15/23 1808 MR#: [id number] Acct: [id number] Name: MARCEL TURCIOS Rep #: [id number] : 1960 62 From: Clark Lerma MD PCP: Care Physician,No Primary Status:ADM IN Location: [place] [address] Assessment Plan Assessment/Plan (1) Atrial fibrillation and [...] he converted back to normal sinus rhythm [facility] Medical History Anxiety Back pain COPD (chronic [...] chest normal (more content not included)... Normal [facility] Determination of erythrocyte mean corpuscular volume (MCV)Ordered By: Bertram Yi on 09-15-2023 MCV (RBC) [Entitic vol] 88.9 fL 80-94 [facility] Direct bilirubinOrdered By: Bertram Yi on 09-15-2023 Bilirubin.direct [Mass/Vol] 0.22 mg/dL 0.00-0.30 [facility] Echo Complete W/ Contraston 09-15-2023 Echo Complete W/ Contrast [facility] [address] [place] [address] Echo Complete W/ Contrast 09/15/23 1545 MR#: [id number] Acct: [id number] Name: MARCEL TURCIOS Rep #: [id number] : 1960 62 From: Clark Lerma MD [...] Castellanos Performed By: Jose Gaines RCS 09/15/23 2800 Date Clark Lerma MD CC: Dr. Rod Castellanos DO; No Primary Care Physician Date Dictated: 09/15/23 1545 Date Transcribed: 09/15/23 1730 Computational Chemist: Signed Normal [facility] Emergency Department Summary on 09-15-2023 Emergency Department Summary [facility] Medical Records Department [address] [place] [address] Emergency Department Summary 09/15/23 MR#: [id number] Acct: [id number] Name: MARCEL TURCIOS Rep #: [id number] : 1960 62 From: Bertram Yi DO PCP: Care Physician,No Primary Status:ADM IN Location: [address] History of Present Illness Chief Complaint: [facility] Medical History (Updated 09/15/23 @ 13:56 by [...] no o (more content not included)... Normal [facility] Erythrocyte distribution wid th ratioOrdered By: Bertram Yi on 09-15-2023 Erythrocyte distribution width (RBC) [Ratio] 15.1 % 11.6-14.6 [facility] Erythrocyte distribution wid th standard deviationOrdered By: Bertram Yi on 09-15-2023 Erythrocyte distribution width (RBC) [Entitic vol] 48.6 fL 35.1-43.9 [facility] H AND P Exam - Hospitaliston 09-15-2023 H&P Exam - Hospitalist [facility] Medical Records Department [address] [place] [address] H P Exam - Hospitalist 09/15/23 1350 MR#: [id number] Acct: [id number] Name: MARCEL TURCIOS Rep #: [id number] : 1960 62 From: Rod Castellanos DO PCP: Care Physician,No Primary Status:ADM IN Location: [facility]U [id number] HPI - General General Date of Admission: 09/15/23 Date of Service: 09/15/23 Chief Complaint: Worsening weakness and progressive dyspnea with exertion HPI Narrative MARCEL TURCOIS, is a 62 M who presented to [facility] ED on 09/15/2023 with worsening weakness and [...] in a trailer by himself down in [place] and was hardly able to do anything [...] job. No other acute concerns this time. [facility] Medical History Anxiety Back pain COPD (chronic [...] cigarettes ROS (more content not included)... Normal [facility] Hematocrit Auto (Bld) [Volum e fraction]Ordered By: Bertram Yi on 09-15-2023 Hematocrit (Bld) [Volume fraction] 54.6 % 40-54 [facility] Hemoglobin A1con 09-15-2023 HbA1c (Bld) [Mass fraction] 5.8 % High 3.8-5.6 [facility] Comment on above: Result Comment: Norm al < 5.7 % Prediabetic 5.7 - 6.4 % Diabetic >or= 6.5 % Please note range changes. Performed By: #### L 100.0500, L500.2500 #### [facility] [address] [place], [address] Hyaline casts LM.LPF (Urine sed) [#/Area]Ordered By: Rod Castellanos on 09-15-2023 Hyaline casts (Urine sed) [#/Area] 0 /[LPF] 0-5 [facility] Immature granulocytes/100 WB C Auto (Bld)Ordered By: Berrtam Yi on 09-15-2023 Immature granulocytes/100 WBC (Bld) 0.700 % 0.0-0.9 [facility] Comment on above: IG% - Immature Granu locytes (promyelocytes, myelocytes and metamyelocytes) > 1% indicates that a LEFT SHIFT is Present. Ketones Test strip Ql (U)Ord ered By: Rod Castellanos on 09-15-2023 Ketones Ql (U) 50 mg/dl Negative [facility] L501.4020on 09-15-2023 TROPONIN-I HS 20 pg/mL Normal 3.0-78.0 [facility] Comment on above: Order Comment: 'TROP ' Serial specimen #1, #2 or #3: 1 Result Comment: Plea se Note: New Test Units and Gender Specific Reference Ranges. For more information see Policy Stat Procedure [place] High Sensitivity Troponin (TNIH) and attachments. Performed By: #### L 501.5200, L501.9520, L503.6005, L503.6620, L100.0100, L300.3900, L300.4310, L500.2500, L500.3400, L501.2450, L501.4020 ####[facility] [address] [place], [place], [id number] Laboratory - Chemistry and C hemistry - challengeOrdered By: Rod Castellanos on 09-15-2023 Sodium (U) [Moles/Vol] 16 mmol/L Not Establ. [facility] Laboratory - Chemistry and C hemistry - challengeOrdered By: Bertram Yi on 09-15-2023 Natriuretic peptide B (Bld) [Mass/Vol] 165.1 pg/mL 0-100 [facility] ALP [Catalytic activity/Vol] 70 U/L 45-117 [facility] ALT [Catalytic activity/Vol] 48 U/L 16-61 [facility] CO2 [Moles/Vol] 22.0 mmol/L 21.0-32.0 [facility] Globulin (S) [Mass/Vol] 4.3 g/dL 2.2-4.2 [facility] Lipase [Catalytic activity/Vol] 38 U/L 13-75 [facility] Comment on above: Please note:LIPASE r evised reference range effective 22. New Lipase methodology. Expected to produce lower values than the previous assay method. NEW Reference Range: 13 - 75 U/L Magnesium [Mass/Vol] 2.3 mg/dL 1.6-2.6 [facility] Urea nitrogen/Creatinine [Mass ratio] 14.1 mg/mg 10-20 [facility] Laboratory - CoagulationOrde red By: Bertram Yi on 09-15-2023 INR Coag (Bld) [Relative time] 1.0 {INR} [facility] PT Coag (PPP) [Time] 13.6 s 11.7-14.9 [facility] Laboratory - Hematology and Cell countsOrdered By: Bertram Yi on 09-15-2023 MCH (RBC) [Entitic mass] 29.8 pg 27.0-32.0 [facility] MCHC (RBC) [Mass/Vol] 33.5 g/dL 32-36 [facility] Nucleated RBC/100 WBC (Bld) [Ratio] 0 % 0-5 [facility] Platelet mean volume (Bld) [Entitic vol] 9.4 fL 6.2-12.0 [facility] Platelets (Bld) [#/Vol] 177 10*3/uL 150-450 [facility] Lipaseon 09-15-2023 Lipase [Catalytic activity/Vol] 38 U/L Normal 13-75 [facility] Comment on above: Order Comment: 'TROP ' Serial specimen #1, #2 or #3: 1 Result Comment: Priscilla poon note: LIPASE revised reference range effective 22. New Lipase methodology. Expected to produce lower values than the previous assay method. NEW Reference Range: 13 - 75 U/L Performed By: #### L 501.5200, L501.9520, L503.6005, L503.6620, L100.0100, L300.3900, L300.4310, L500.2500, L500.3400, L501.2450, L501.4020 #### [facility] [address] [place], [address] Lipid Profileon 09-15-2023 Cholesterol in VLDL [Mass/Vol] 35 mg/dL Normal 5-40 [facility] Comment on above: Performed By: #### L 500.4100, L501.9520, L501.9985 ####[facility] [address] [place], [address] Lipid ProfileOrdered By: Terri Castellanos on 09-15-2023 Cholesterol in HDL [Mass/Vol] 45 mg/dL Normal [facility] Comment on above: The drugs N-Acetylcy steine and Metamizole may falsely depress this assay. Reference Range HDL <40 mg/dL Low HDL Cholesterol HDL >or= 60 mg/dL High HDL Cholesterol Result Comment: The drugs N-Acetylcysteine and Metamizole may falsely depress this assay. Reference Range HDL <40 mg/dL Low HDL Cholesterol HDL >or= 60 mg/dL High HDL Cholesterol Performed By: #### L 500.4100, L501.9520, L501.9985 ####[facility] [address] [place], [address] Cholesterol in LDL [Mass/Vol] 94 mg/dL Normal 0-130 [facility] Comment on above: Performed By: #### L 500.4100, L501.9520, L501.9985 ####[facility] [address] [place], [address] Liver Profileon 09-15-2023 Albumin [Mass/Vol] 3.4 g/dL Normal 3.2-5.0 [facility] Comment on above: Order Comment: 'TROP ' Serial specimen #1, #2 or #3: 1 Performed By: #### L 501.5200, L501.9520, L503.6005, L503.6620, L100.0100, L300.3900, L300.4310, L500.2500, L500.3400, L501.2450, L501.4020 #### [facility] [address] [place], [address] ALK P 70 U/L Normal 45-117 [facility] Comment on above: Order Comment: 'TROP ' Serial specimen #1, #2 or #3: 1 Performed By: #### L 501.5200, L501.9520, L503.6005, L503.6620, L100.0100, L300.3900, L300.4310, L500.2500, L500.3400, L501.2450, L501.4020 #### [facility] [address] [place], [address] ALT [Catalytic activity/Vol] 48 U/L Normal 16-61 [facility] Comment on above: Order Comment: 'TROP ' Serial specimen #1, #2 or #3: 1 Performed By: #### L 501.5200, L501.9520, L503.6005, L503.6620, L100.0100, L300.3900, L300.4310, L500.2500, L500.3400, L501.2450, L501.4020 #### [facility] [address] [place], [address] AST [Catalytic activity/Vol] 32 U/L Normal 15-37 [facility] Comment on above: Order Comment: 'TROP ' Serial specimen #1, #2 or #3: 1 Performed By: #### L 501.5200, L501.9520, L503.6005, L503.6620, L100.0100, L300.3900, L300.4310, L500.2500, L500.3400, L501.2450, L501.4020 #### [facility] [address] [place], [address] Bilirubin [Mass/Vol] 0.80 mg/dL Normal 0.20-1.00 [facility] Comment on above: Order Comment: 'TROP ' Serial specimen #1, #2 or #3: 1 Result Comment: For patients on eltrombopag therapy, use of Dimension [place] TBIL is not recommended. Performed By: #### L 501.5200, L501.9520, L503.6005, L503.6620, L100.0100, L300.3900, L300.4310, L500.2500, L500.3400, L501.2450, L501.4020 #### [facility] [address] [place], [address] Bilirubin.direct [Mass/Vol] 0.22 mg/dL Normal 0.00-0.30 [facility] Comment on above: Order Comment: 'TROP ' Serial specimen #1, #2 or #3: 1 Performed By: #### L 501.5200, L501.9520, L503.6005, L503.6620, L100.0100, L300.3900, L300.4310, L500.2500, L500.3400, L501.2450, L501.4020 #### [facility] [address] [place], [address] Globulin (S) [Mass/Vol] 4.3 g/dL High 2.2-4.2 [facility] Comment on above: Order Comment: 'TROP ' Serial specimen #1, #2 or #3: 1 Performed By: #### L 501.5200, L501.9520, L503.6005, L503.6620, L100.0100, L300.3900, L300.4310, L500.2500, L500.3400, L501.2450, L501.4020 #### [facility] [address] [place], [place], [address] T PROT 7.7 g/dL Normal 6.4-8.2 [facility] Comment on above: Order Comment: 'TROP ' Serial specimen #1, #2 or #3: 1 Performed By: #### L 501.5200, L501.9520, L503.6005, L503.6620, L100.0100, L300.3900, L300.4310, L500.2500, L500.3400, L501.2450, L501.4020 #### [facility] [address] [place], [address] Magnesiumon 09-15-2023 Magnesium [Mass/Vol] 2.3 mg/dL Normal 1.6-2.6 [facility] Comment on above: Order Comment: 'TROP ' Serial specimen #1, #2 or #3: 1 Performed By: #### L 501.5200, L501.9520, L503.6005, L503.6620, L100.0100, L300.3900, L300.4310, L500.2500, L500.3400, L501.2450, L501.4020 ####[facility] [address] [place], [place], [address] Mucus LM Ql (Urine sed)Order ed By: Rod Castellanos on 09-15-2023 Mucus Ql (Urine sed) 3+ /hpf [facility] Nitrite Test strip Ql (U)Ord ered By: Rod Castellanos on 09-15-2023 Nitrite Ql (U) Negative Negative [facility] No Panel InformationOrdered By: Rod Castellanos on 09-15-2023 Urine RBC 0-5 SEEN /hpf 0-5 [facility] VLDL Cholesterol 35 mg/dL 5-40 [facility] No Panel InformationOrdered By: Bertram Yi on 09-15-2023 Estimated Creatinine Clearance Calc 79.58 ml/min [facility] Estimated GFR (MDRD) Amer 65 mL/min >60 [facility] Comment on above: GFR Calc Estimated GFR (MDRD) Non-Af Amer 53 mL/min >60 [facility] Comment on above: Non- GFR Calc Troponin I High Sensitivity 20 pg/mL 3.0-78.0 [facility] Comment on above: Please Note: New Yary t Units and Gender Specific Reference Ranges. For more information see Policy Stat Procedure [place] High Sensitivity Troponin (TNIH) and attachments. Partial Thromboplast Timeon 09-15-2023 aPTT Coag (d) [Time] 26.4 s Normal 24.1-36.2 [facility] Comment on above: Performed By: #### L 501.5200, L501.9520, L503.6005, L503.6620, L100.0100, L300.3900, L300.4310, L500.2500, L500.3400, L501.2450, L501.4020 #### [facility] [address] [place], [address] Protein Test strip Ql (U)Ord ered By: Rod Castellanos on 09-15-2023 Protein Ql (U) 30 mg/dl Negative [facility] Protein+Creatinine Ratio,Uri neon 09-15-2023 PROT:CRE RATIO 84 mg/g CRE Normal 0-200 [facility] Comment on above: Performed By: #### L 400.0001, L501.0900, L501.5500 ####[facility] [address] [place], [address] Protein (U) [Mass/Vol] 35.9 mg/dL High <11.9 [facility] Comment on above: Performed By: #### L 400.0001, L501.0900, L501.5500 ####[facility] [address] [place], [address] UR CREAT 427.00 mg/dL Normal NO RANGE EST. [facility] Comment on above: Performed By: #### L 400.0001, L501.0900, L501.5500 ####[facility] [address] [place], [address] Prothrombin Time w/INRon INR Coag (PPP) [Relative time] 1.0 {INR} Normal [facility] Comment on above: Performed By: #### L 501.5200, L501.9520, L503.6005, L503.6620, L100.0100, L300.3900, L300.4310, L500.2500, L500.3400, L501.2450, L501.4020 #### [facility] [address] [place], [address] PT Coag (PPP) [Time] 13.6 s Normal 11.7-14.9 [facility] Comment on above: Performed By: #### L 501.5200, L501.9520, L503.6005, L503.6620, L100.0100, L300.3900, L300.4310, L500.2500, L500.3400, L501.2450, L501.4020 #### [facility] [address] [place], [place], [id number] RBC Auto (Bld) [#/Vol]Ordere d By: Bertram Yi on 09-15-2023 RBC (Bld) [#/Vol] 6.14 10*6/uL 4.6-6.2 [facility] Review by pathologistOrdered By: Bertram Yi on 09-15-2023 Pathologist review Cesar (Unsp spec) [Interp] May foll [facility] Serum or plasma calcium jarrod urement (mass/volume)Ordered By: Bertram Yi on 09-15-2023 Calcium [Mass/Vol] 9.2 mg/dL 8.5-10.1 [facility] Serum or plasma creatinine m easurement (mass/volume)Ordered By: Bertram Yi on 09-15-2023 Creatinine [Mass/Vol] 1.42 mg/dL 0.70-1.30 [facility] Comment on above: The validity of the calculated GFR & GFRAA in patients over 70 years has not been determined. Clinical correlation is essential. Serum or plasma thyroid stim ulating hormone (TSH) measurement (units/volume)Ordered By: Bertram Yi on 09-15-2023 TSH Qn 2.82 uIU/mL 0.358-3.74 [facility] Serum or plasma thyroid stim ulating hormone (TSH) measurement (units/volume)Ordered By: Rod Castellanos on 09-15-2023 TSH Qn 3.10 uIU/mL 0.358-3.74 [facility] Serum or plasma urea nitroge n measurement (mass/volume)Ordered By: Bertram Yi on 09-15-2023 Urea nitrogen [Mass/Vol] 20 mg/dL 7-18 [facility] Squamous epithelial cells de tection in urine sediment by light microscopyOrdered By: Rod Castellanos on 09-15-2023 Epithelial cells.squamous LM Ql (Urine sed) 0 SEEN /hpf 0-5 [facility] Thin prep Papanicolaou smear with manual screeningOrdered By: Rod Castellanos on 09-15-2023 Protein (U) [Mass/Vol] 35.9 mg/dL 0.0-11.8 [facility] Thin prep Papanicolaou smear with manual screeningOrdered By: Bertram Yi on 09-15-2023 Thin prep Papanicolaou smear with manual screening 3.4 g/dL 3.2-5.0 [facility] Thin prep Papanicolaou smear with manual screening 32 U/L 15-37 [facility] Thin prep Papanicolaou smear with manual screening 11 5-15 [facility] Thyroid Stim Hormone (TSH)on 09-15-2023 TSH 3.10 uIU/mL Normal 0.358-3.74 [facility] Comment on above: Performed By: #### L 100.0500, L500.2500 #### [facility] [place], [address] TSH 2.82 uIU/mL Normal 0.358-3.74 [facility] Comment on above: Order Comment: 'TROP ' Serial specimen #1, #2 or #3: 1 Performed By: #### L 501.5200, L501.9520, L503.6005, L503.6620, L100.0100, L300.3900, L300.4310, L500.2500, L500.3400, L501.2450, L501.4020 ####[facility] [address] [place], [address] Urinalysis, Completeon 09-14 CAST,HYALINE 0-5 SEEN Normal 0-5 [facility]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 [address] 12-08-2024 16:44-0400 Inhaled oxygen flow rate 2 L/min Dr. Jose David Sims MD Work Phone: 6(478)472-728360 [place] [address] 12-08-2024 16:44-0400 Respiratory rate 20 /min Dr. Jose David Sims MD Work Phone: 7(298)451-948060 [place] [address] 12-08-2024 16:44-0400 SaO2% (BldA) [Mass fraction] 96 % Dr. Jose David Sims MD Work Phone: 1(072)716-662360 [place] [address] 12-08-2024 16:44-0400 Systolic blood pressure 181 mm[Hg] Dr. Jose David Sims MD Work Phone: 5(783)390-982560 [place] [address] 12-08-2024 16:40-0400 Body height 185.[address] Jose David Sims MD Work Phone: 3(875)819-301860 [place] [address] 12-08-2024 16:40-0400 Body mass index (BMI) [Ratio] 49.4 kg/m2 Dr. Jose David Sims MD Work Phone: 7(003)513-184760 [place] [address] 12-08-2024 16:40-0400 Body weight 169.[address] Jose David Sims MD Work Phone: 4(488)[phone] [place] [address] 12-08-2024 16:28-0400 Body temperature 97.9 [degF] Dr. Jose David Sims MD Work Phone: 5(763)569-205260 [place] [address] 12-08-2024 16:28-0400 Diastolic blood pressure 89 mm[Hg] Dr. Jose David Sims MD Work Phone: [facility] 12-08-2024 16:28-0400 Heart rate 103 /min Dr. Jose David Sims MD Work Phone: [facility] 12-08-2024 16:28-0400 Respiratory rate 19 /min Dr. Jose David Sims MD Work Phone: [facility] 12-08-2024 16:28-0400 SaO2% (BldA) [Mass fraction] 93 % Dr. Jose David Sims MD Work Phone: [facility] 12-08-2024 16:28-0400 Systolic blood pressure 139 mm[Hg] Dr. Jose David Sims MD Work Phone: [facility] 12-08-2024 15:25-0400 Inhaled oxygen concentration 21 % Dr. Jose David Sims MD Work Phone: [facility] 12-08-2024 12:00-0400 Body mass index (BMI) [Ratio] 49.9 kg/m2 Dr. Jose David Sims MD Work Phone: [facility] 12-08-2024 12:00-0400 Body weight 171.[address] Jose David Sims MD Work Phone: [facility] 12-08-2024 11:59-0400 Body height 185.[address] Jose David Sims MD Work Phone: [facility] 09-16-2023 14:08-0400 Body temperature 98.1 [degF] No Primary Care Physician [facility] 09-16-2023 14:08-0400 Diastolic blood pressure 98 mm[Hg] No Primary Care Physician [facility] 09-16-2023 14:08-0400 Heart rate 87 /min No Primary Care Physician [facility] 09-16-2023 14:08-0400 Respiratory rate 18 /min No Primary Care Physician [facility] 09-16-2023 14:08-0400 SaO2% (BldA) [Mass fraction] 94 % No Primary Care Physician [facility] 09-16-2023 14:08-0400 Systolic blood pressure 153 mm[Hg] No Primary Care Physician [facility] 09-16-2023 12:15-0400 Body height 185.42 cm No Primary Care Physician [facility] 09-16-2023 12:15-0400 Body weight 164.38 kg No Primary Care Physician [facility] 09-16-2023 08:03-0400 Inhaled oxygen flow rate 2 L/min No Primary Care Physician [facility] 09-15-2023 16:53-0400 Body mass index (BMI) [Ratio] 47.8 kg/m2 No Primary Care Physician [facility] 09-15-2023 16:00-0400 Body temperature 97.4 [degF] [facility] 09-15-2023 16:00-0400 Diastolic blood pressure 73 mm[Hg] [facility] 09-15-2023 16:00-0400 Heart rate 98 /min [facility] 09-15-2023 16:00-0400 Respiratory rate 24 /min [facility] 09-15-2023 16:00-0400 SaO2% (BldA) [Mass fraction] 98 % [facility] 09-15-2023 16:00-0400 Systolic blood pressure 128 mm[Hg] [facility] 09-15-2023 14:00-0400 Inhaled oxygen flow rate 2 L/min [facility] 09-15-2023 11:34-0400 Body mass index (BMI) [Ratio] 41.9 kg/m2 [facility] 09-15-2023 11:34-0400 Body weight 144.3 kg [facility] 09-15-2023 11:19-0400 Body height 185.42 cm [facility] Encounters Encounter Date Encounter Type Care Provider Facility Start: 12-08-2024 End: 12-08-2024 Evaluation and management of inpatient Dr. Mis Edmondson MD -Progressive Care Unit Work Phone: Start: 12-07-[address] Jose David Sims MD -Laboratory [facility] Start: 09-16-2023 Non-patient / Non-visit [facility] Work Phone: Start: 09-15-2023 ambulatory No Primary Car e Physician Facility:[facility] Start: 09-15-2023 ambulatory No Primary Car e Physician Facility:[facility] Start: 09-15-2023 End: 09-16-2023 Evaluation and management of inpatient No Primary Care Physician Facility:[facility] Start: 09-15-2023 Non-patient / Non-visit No [facility] Physician [facility] Start: 09-15-2023 End: 09-16-2023 Evaluation and management of inpatient [facility]-Progressive Care Unit Work Phone: Start: 05-26-2017 End: 05-26-2017 Ambulatory [facility] Start: 04-26-2017 End: 04-26-2017 [facility] Procedures Date Procedure Procedure Detail Performing Clinician [...] Activity Detail Author Start: 12-08-2024 Oxygen therapy [facility] Start: 12-08-2024 Assessment of risk o f venous thromboembolism [facility] Start: 12-08-2024 Insertion of cathete r into peripheral vein [facility] Start: 12-08-2024 Measuring intake and output [facility] Start: 12-08-2024 Providing care accor ding to standard [facility] Start: 12-08-2024 Provision of activit y privileges [facility] Start: 12-08-2024 Referral to animal treatment investigator [facility] Start: 12-08-2024 Referral to occupati onal therapist [facility] Start: 12-08-[address] [facility] Start: 12-08-2024 [facility] Start: 12-08-2024 Following clinical p athway protocol [facility] Start: 12-08-2024 Thyroid stimulating hormone measurement [facility] Start: 12-08-2024 CT of chest without contrast Chest without Contrast [facility] Start: 12-08-[address] [facility] Start: 12-08-2024 Hospital admission, emergency, from emergency room, medical nature [facility] Start: 12-08-2024 Continuous pulse oximetry [facility] Start: 12-08-2024 Dual pressure sponta neous ventilation support [facility] Start: 12-08-2024 [facility] Start: 12-08-2024 [facility] Start: 12-08-2024 Patient discharge [facility] Start: 12-08-2024 Patient referral to dietitian [facility] Start: 09-16-2023 Patient discharge [facility] Start: 09-16-2023 End: 09-16-2023 Care planning and problem solving actions [facility] Start: 09-15-2023 Following clinical p athway protocol [facility] Start: 09-15-2023 Ambulation without limitation [facility] Start: 09-15-2023 Assessment of risk o f venous thromboembolism [facility] Start: 09-15-2023 Cardiac monitoring [facility] Start: 09-15-2023 Continuous positive airway pressure ventilation treatment [facility] Start: 09-15-2023 Incentive spirometry [facility] Start: 09-15-2023 Inhalation therapy procedure [facility] Start: 09-15-2023 Insertion of cathete r into peripheral vein [facility] Start: 09-15-2023 Oxygen therapy [facility] Start: 09-15-2023 Providing care accor ding to standard [facility] Start: 09-15-2023 Referral to animal treatment investigator [facility] Start: 09-15-2023 Referral to occupati onal therapist [facility] Start: 09-15-[address] [facility] Start: 09-15-2023 Tobacco use cessatio n education [facility] Start: 09-15-2023 [facility] Start: 09-15-2023 Hospital admission, emergency, from emergency room, medical nature [facility] Start: 09-15-2023 Protein/Creatinine [ Ratio] in Urine [facility] Start: 09-15-2023 Sodium [Moles/volume ] in Urine [facility] Start: 09-15-2023 Urinalysis complete panel - Urine [facility] Start: 09-15-[address] [facility] Start: 09-15-2023 Verification routine [facility] Start: 09-15-2023 Bacteria identified in Blood by Culture Blood Culture [facility] Start: 09-15-2023 End: 09-15-2023 Blood culture [facility] Start: 09-15-2023 [facility] Start: 09-15-2023 Patient referral to dietitian [facility] Bilirubin measuremen t, urine [facility] Hemoglobin [Presence ] in Urine [facility] Magnesium measurement [facility] Measurement of keton es in urine using dipstick [facility] Microscopic urinalysis [facility] Patient referral [facility] Work Phone: pH of Urine [facility] Specific gravity of Urine [facility] Troponin T.cardiac [Mass/volume] in Serum or Plasma by High sensitivity method [facility] Urinalysis, blood, qualitative [facility] Urine dipstick for glucose [facility] Urine dipstick for leukocyte esterase [facility] Urine dipstick for nitrite [facility] Urine dipstick for protein [facility] Urine examination [facility] Urine microscopy: epithelial cells [facility] Urine Microscopy: wh ite cells [facility] Urobilinogen [Presen ce] in Urine [facility] Immunizations Immunization Date Immunization Notes Care Provider Chelsea louie 04-28-2016 influenza, injectabl e, quadrivalent, preservative free No Primary Care Physician [facility] 05-21-2015 tetanus toxoid, redu maribell diphtheria toxoid, and acellular pertussis vaccine, adsorbed [facility] 04-24-2015 influenza, injectabl e, quadrivalent, preservative free No Primary Care Physician [facility] 03-15-2014 influenza, injectabl e, quadrivalent, preservative free No Primary Care Physician [facility] 05-15-2009 novel ctoyoaesh-[id number], preservative-free, injectable No Primary Care Physician [facility] 06-16-2006 varicella virus vaccine No P [facility] Care Physician [facility] 02-12-1994 hepatitis B vaccine, adult dosage No Primary Care Physician [facility] 09-08-1993 hepatitis B vaccine, adult dosage No Primary Care Physician [facility] 08-11-1993 hepatitis B vaccine, adult dosage No Primary Care Physician [facility] Payers Date Payer Category Payer Self-pay [id number] 2015 Unknown [facility] [id number] Medicare MEDICARE PART A B [id number] Unknown ANTHEM [id number] Unknown [id number] 2.16.8 [id number] Unknown [id number] 2.16.8 [id number] Unknown [id number] 2.16.8 [id number] Unknown [id number] 2.16.8 [id number] Unknown [id number] 2.16.8 [id number] Social History Date Type Detail Facility Start: 09-15-2023 End: 09-16-2023 Tobacco smoking status NHIS Unknown if ever smoked [facility] Start: 08-16-2019 None [facility] Start: 07-16-2019 With Family [facility] Start: 05-20-2020 Cigarettes [facility] Start: 1960 Sex Assigned At Male [facility] Start: 12-08-2024 End: 12-08-2024 Tobacco smoking status NHIS Smokes tobacco daily (finding) [facility] Goals Date Patient Goal Desired Activity /State Functional Status Date Assessment Result Facility 12-08-2024 Functional status Standby Assist [facility] Work Phone: 09-16-2023 Functional [facility]: Mental Status Date Assessment Result Facility 09-16-2023 Cognitive function [facility]Name [facility] Work Phone: 09-15-2023 Cognitive function Awake;Alert;A ppropriate;Fol lows Commands [facility] Work Phone: Clinical Notes 05-05-2021 to 12-08-2024 Note Date & Type Note Facility 12-08-2024 Radiology Diagnostic study note [facility] Imaging Services [address] [place], [place] [id number] Chest PA and Lateral MR#: [id number] Acct: [id number] Name: MARCEL TURCIOS Rep #: [id number] : 1960 M 64 From: Sweetie Metzger MD PCP: Dr. Jose David Sims MD Status: [facility] ER Study:Chest PA and Lateral Date of Exam: 12/08/24 Exam# [id number] Ordering Dr: Martha Sawant PROCEDURE: CHEST PA [...] pneumothorax. Mild pulmonary vascular congestion. Reading Location: [id number] CC: Dr. Jose David Sims MD; YASMANY Helton ~ Computational Chemist: Signed [facility] 09-16-2023 Note [facility] Medical Records Department [address] [place] [address] Discharge Summary 09/16/23 1259 MR#: [id number] Acct: [id number] Name: MARCEL TURCIOS Rep #: [id number] : 1960 62 From: Jose David Majano DO PCP: Care Physician,No Primary Status:ADM IN Location: [place] [address]1 Providers Date of Admission: 09/15/23 Primary Care [...] rhythm with right bundle branch block. * WLW2YA7-UODf score of 0 but patient has poor [...] 50 mg twice daily. Ynes mcneal said AAK6LI7-VGDz score was 0 so no anticoagulation was [...] Clarity Clear, Urine pH 5.0, Ur Specific [place] 1.025, Urine Protein 30 H, Urine Glucose (UA) Normal, Urine Ketones 50 H, Urine Occult Blood 150 H, Urine Nitrite Negative, Urine Bilirubin 3 H, Urine Urobilinogen 4 H, Ur Leukocyte Esterase 25 H, Urine RBC 0-5 SEEN, Urine WBC 0-5 SEEN, Ur (more content not included)... [facility] 09-16-2023 Progress note Note Date/Time September 16, 2023 8:21am [facility] Medical Records Department [address] [place] [address] Progress Note - Hospitalist 09/16/23812 MR#: [id number] Acct: [id number] Name: MARCEL TURCIOS Brando Rep #:[id number] : 1960 62 From: Jose David Majano DO PCP: Care Physician,No Primary Status :ADM IN Location: [place] [address] Reason for Visit Reason for Visit: Diagnoses [...] % (Auto) 63.9, Lymph % (Auto) 20.5, [place]% (Auto) 11.9 H, Eos % (Auto) 2.1, [...] Clarity Clear, Urine pH 5.0, Ur Specific [place] 1.025, Urine Protein 30 H, Urine Glucose [...] 12:50 EDT Reading Location ID and State: [facility] [place] , Service support , Echocardiogram 09/15/23 14:11 [...] rhythm with right bundle branch block. * CCA5VO9-YUXc score of 0 but patient has poor [...] OT evaluation. Charges/Coding Visit Charges Inpatient E&M: 97209 Subs Hosp L2 09/16/23 1235 <Electronically signed by Jose David Majano DO> Cosigner Signature (if applicable): CC: ~ Signed [facility] Work Phone: 1(325) 216-512703-21-2024 Progress note Author Clark Lerma [facility] September 16, 2023 8:21am Note Date/Time September 16, 2023 8:1 1am [facility] Medical Records Department [address] [place] [address] Progress Note - Cardiology 09/16/23 0808 MR#: [id number] Acct: [id number] Name: MARCEL TURCIOS Rep #:[id number] : 1960 62 From: Clark Lerma MD PCP: Care Physician,No Primary Status :ADM IN Location: [place] [address] Subjective Subjective Patient seen and evaluated. Appears [...] % (Auto) 63.9, Lymph % (Auto) 20.5, [place]% (Auto) 11.9 H, Eos % (Auto) 2.1, [...] Clarity Clear, Urine pH 5.0, Ur Specific [place] 1.025, Urine Protein 30 H, Urine Glucose [...] % (Auto) 63.9, Lymph % (Auto) 20.5, [place] % (Auto) 11.9 H, Eos % (Auto) [...] Clarity Clear, Urine pH 5.0, Ur Specific [place] 1.025, Urine Protein 30 H, Urine Glucose [...] Cosigner Signature (if applicable): CC: ~ Signed [facility] Work Phone: 1(510) 327-664303-21-2024 History and physical note Author Rod Castellanos [facility] September 15, 2023 10:52pm Note Date/Time September 15, 2023 1:5 0pm [facility] System Medical Records Department [address] [place] [id number] H&P Exam - Hospitalist 09/15/23 1350 MR#: [id number] Acct: [id number] Name: MARCEL TURCIOS Rep #:[id number] : 1960 62 From: Rod mathias DO PCP: Care Physician,No Primary Status :ADM IN Location: [facility] [id number] HPI - General General Date of Admission: 09/15/23 Date of Service: 09/15/23 Chief Complaint: Worsening weakness and progressive dyspnea with exertion HPI Narrative MARCEL TURCIOS, is a 62 M who presented to [facility] ED on 09/15/2023 with worsening weakness and [...] in a trailer by himself down in [place] and was hardly able to do anything [...] job. No other acute concerns this time. [facility] Medical History Anxiety Back pain COPD (chronic [...] % (Auto) 63.9, Lymph % (Auto) 20.5, [place]% (Auto) 11.9 H, Eos % (Auto) 2.1, [...] Patient is a 62-year-old male who presented [facility] ED on 09/15/2023 with worsening weakness and dyspnea on exertion. 1. New onset A-fib/a flutter with RVR ? Initially with concern for wide-complex tachycardia but after administration of adenosine, more consistent with A-fib/flutter. Given dose of IV Cardizem with conversion to sinus rhythm. EKG showed normal sinus rhythm with right bundle branch block. ? [id number] score of 0 but patient has poor [...] 75 minutes. Charges/Coding Visit Charges Inpatient E&M: 75657 Init Hosp L3 09/15/23 6158 <Electronically signed by Rod Castellanos DO> Cosigner Signature (if applicable): CC: Dr. Rod Castellanos DO; No Primary Care Physician~ Signed [facility] Work Phone: 1(960) 408-863803-20-2024 Consult note Author Clark Lerma [facility] September 15, 2023 6:16pm Note Date/Time September 15, 2023 6:1 2pm [facility] System Medical Records Department [address] [place] [address] Consultation - Cardiology 09/15/23 1808 MR#: [id number] Acct: [id number] Name: MARCEL TURCIOS Rep #:[id number] : 1960 62 From: Clark Lerma MD PCP: Care Physician,No Primary Status :ADM IN Location: [place] [id number]- 1 Assessment & Plan Assessment/Plan (1) Atrial [...] he converted back to normal sinus rhythm [facility] Medical History Anxiety Back pain COPD (chronic [...] % (Auto) 63.9, Lymph % (Auto) 20.5, [place]% (Auto) 11.9 H, Eos % (Auto) 2.1, [...] % (Auto) 63.9, Lymph % (Auto) 20.5, [place] % (Auto) 11.9 H, Eos % (Auto) [...] 12:50 EDT Reading Location ID and State: [facility] / [place] , Service support , Echocardiogram 09/15/23 14:11 Interpretation Summary Normal left ventricle. The estimated ejection fraction is 65 %. The study was technically difficult. Contrast injection was performed. Ordering Physician: Rod Castellanos Performed By: Jose Gaines RCS 09/15/23 1816 <Electronically signed by Clark Lerma MD> Cosigner Signature (if applicable): CC: Dr. Clark Lerma MD; No Primary Care Physician~ Signed [facility] Work Phone: 1([phone]) 896-330103-20-2024 Discharge summary Author Bertram Yi [facility] September 15, 2023 4:28pm Note Date/Time September 15, 2023 1:0 9pm [facility] System Medical Records Department [address] [place] [address] Emergency Department Summary 09/15/23 MR#: [id number] Acct: [id number] Name: MARCEL TURCIOS Rep #:[id number] : 1960 62 From: Bertram Torres PCP: Care Physician,No Primary Status :ADM IN Location: [address] History of Present Illness Chief Complaint: Weakness [facility] Medical History (Updated 09/15/23 @ 13:56 by [...] % (Auto) 63.9 Lymph % (Auto) 20.5 [place] % (Auto) 11.9 H Eos % (Auto) [...] flutter, Weakness Disposition Disposition: Acute Care Hospital [facility] What to do if you have Problems For any increased pain, shortness of breath, bleeding, nausea or vomiting, chestpain, or any unexpected problems, contact your Primary Care Provider. Call [facility] ([phone]) or report to the closest Emergency Room. Call 911 if necessary. 09/15/23 3368 <Electronically signed by Bertram Yi DO> Cosigner Signature (if applicable): CC: No Primary Care Physician ~ Signed [facility] Work Phone: 1(908) 717-502703-20-2024 Discharge summary Author Bertram Yi [facility] September 15, 2023 4:28pm Note Date/Time September 15, 2023 1:0 9pm [facility] System Medical Records Department [address] [place] [address] Emergency Department Summary 09/15/23 MR#: [id number] Acct: [id number] Name: MARCEL TURCIOS Rep #:[id number] : 1960 62 From: Bertram Torres PCP: Care Physician,No Primary Status :ADM IN Location: [address] History of Present Illness Chief Complaint: Weakness [facility] Medical History (Updated 09/15/23 @ 13:56 by [...] % (Auto) 63.9 Lymph % (Auto) 20.5 [place] % (Auto) 11.9 H Eos % (Auto) [...] flutter, Weakness Disposition Disposition: Acute Care Hospital [facility] What to do if you have Problems For any increased pain, shortness of breath, bleeding, nausea or vomiting, chestpain, or any unexpected problems, contact your Primary Care Provider. Call [facility] ([phone]) or report to the closest Emergency Room. Call 911 if necessary. 09/15/23 8027 <Electronically signed by Bertram Yi DO> Cosigner Signature (if applicable): CC: No Primary Care Physician ~ Signed [facility] Work Phone: 1(758) 859-753111-08-2021 NotePatient Outreach (4CQ) MARCEL TURCIOS ([id number]) 1960 M Date Time Provider Department 05/05/21 [...] 04/15/2017 Encounter Status:Closed by KULDIP WHITAKER on 05/05/21[facility]11-08-2021 NoteHNO ID: [id number] Author: Kuldip Fischer Service: ? Author Type: [...] Kuldip Michelle Pss May 05, 2021 10:[address] [facility] note Author Radha Tellez [facility] September 16, 2023 1:55pm Note Date/Time September 16, 2023 1:5 5pm [facility] Medical Records Department [address] [place] [address] Counseling Note - Pharmacy 09/16/23 1355 MR#: [id number] Acct: [id number] Name: MARCEL TURCIOS Rep #:[id number] : 1960 62 From: Radha Tellez PCP: Care Physician,No Primary Status :ADM IN Location: [place] [id number] 1 Pharmacy [facility] has performed discharge medication reconciliation [...] Signature (if applicable): Date CC: ~ Signed [facility] Work Phone: Discharge summary Author Jose David Majano [facility] September 16, 2023 1:12pm Note Date/Time September 16, 2023 1:0 2pm [facility] System Medical Records Department [address] [place] [address] Discharge Summary 09/16/23 1259 MR#: [id number] Acct: [id number] Name: MARCEL TURCIOS Rep #:[id number] : 1960 62 From: Jose David Croninjazmin WARE PCP: Care Physician,No Primary Status :ADM IN Location: [place] [address] Providers Date of Admission: 09/15/23 Primary Care [...] rhythm with right bundle branch block. * [id number] score of 0 but patient has poor [...] succinate 50 mg twice daily. Patient said [id number] score was 0 so no anticoagulation was [...] Clarity Clear, Urine pH 5.0, Ur Specific [place] 1.025, Urine Protein 30 H, Urine Glucose [...] rapid ventricular rate. Attending Provider: Jose David Majaon Primary Care Provider: Care Physician,No Primary Consulting [...] Qty: 30 0RF Referrals / Follow Up: [facility] [Provider Group] - Within 1 Month [facility] [Provider Group] - Within 3 Months Care Physician,No Primary [Primary Care Provider] - Within 2 Weeks Disposition Disposition (needs filled in before D/C Order can be placed): Home, Self Care Charges/Coding Visit Charges Inpatient E&M: 01858 Disch Hosp >30min 09/16/23 1312 <Electronically signed by Jose David Majano DO> Cosigner Signature (if applicable): CC: Dr. 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 [facility] Work Phone: Evaluation noteNo assessment information available [facility] Work Phone: Reason for referral (narrative)No reason for referral [facility] Work Phone: Summary Purpose Family History Relationship [...] No September 15, 2023 11:35am Power of Incident Response Consultant No September 14 11:35am Advance Directive Response Recorded Date/ Time Advance Directives No November 12 6 2:20pm Living Will No September 15, 2023 4:53pm Power of Incident Response Consultant No September 14 4:53pm Advance Directive Response Recorded Date/ Time Do you have a Healthcare Power of Incident Response Consultant? No December 08, 2024 12:22pm Advance Directives No November 12 6 2:20pm Advance Directive Response Recorded Date/ Time Do you have a Healthcare Power of Incident Response Consultant? No December 08, 2024 4:40pm Advance Directives [...] section and content) DATE CREATED AUTHOR 12/21/2017 [facility] DATE CREATED AUTHOR AUTHOR'S ORGANIZ ATION 07/27/2019 [facility] ([place]) DATE CREATED AUTHOR AUTHOR'S ORGANIZ ATION 08/21/2021 [facility] DATE CREATED AUTHOR AUTHOR'S ORGANIZ ATION 09/24/2023 [facility] y Hospital Care Teams (unrecognized sec tion [...] BE BASED ON THE PRIMARY CLINICAL RECORDS. [facility] [employer] provides no warranty or guarantee of the accuracy or completeness of information in this document.
[2024-12-09] MEDS: LORazepam 1 MG Tablet PO ×5 (01:42→21:11)
[2024-12-09] MEDS: Lactated Ringers 1,000 ML 100 ML IV ×2 (02:55→13:09)
[2024-12-09 03:26] LABS: Lactic Acid 1.2 mmol/L (0.0-2.0)
[2024-12-09] MEDS: 0.9% Normal Saline (250mL Bag) 250 ML 15 ML IV (04:10)
[2024-12-09 05:45] LABS: Absolute Lymphocyte Count 2.05 X10^3/uL (0.83-4.51); Absolute Neutrophil Count 9.3 X10^3/uL (2.0-7.7); Basophil# 0.06 X10^3/uL; Basophil% 0.5 % (0-1); Eosinophil# 0.03 X10^3/uL; Eosinophils% 0.2 % (0-5); Hematocrit 49.6 % (40-54); Hemoglobin 16.7 g/dL (13.0-16.5); Lymphocyte # 2.05 X10^3/ul (0.83-4.51); Lymphocyte % 16.7 % (19-41); Mean Corp Hgb Conc 33.7 g/dL (32-36); Mean Corpuscular Hgb 29.6 pg (27.0-32.0); Mean Corpuscular Volume 87.9 fL (80-94); Mean Platelet Vol. 9.1 fl (6.2-12.0); Monocyte# 0.79 X10^3/uL; Monocyte% 6.4 % (0-10); NRBC Flagged by Analyzer 0 % (0-5); Neutrophil # 9.26 X10^3/uL (2.7-7.7); Neutrophil % 75.7 % (47-70); Platelet Count 214 K/mm3 (150-450); RBC Distribution Width CV 15.4 % (11.6-14.6); RBC Distribution Width SD 49.1 fl (35.1-43.9); Red Blood Count 5.64 M/mm3 (4.6-6.2); White Blood Count 12.3 K/mm3 (4.4-11.0)
[2024-12-09 06:15] LABS: ALB/GLOB Ratio 1.3 RATIO (0.9-2.4); AST(SGOT) 37 U/L (<=37); Alanine Aminotransfer ALT/SGPT 60 U/L (<=46); Albumin, Serum 4.1 g/dL (3.4-4.8); Alkaline Phosphatase 77 U/L (40-129); Anion Gap 13 (5-15); BUN 18 mg/dL (4-19); Calcium,Total 9.2 mg/dL (7.6-11.0); Carbon Dioxide 18.1 mmol/L (21.0-32.0); Chloride 105 mmol/L (98-108); Creatinine, Serum 1.77 mg/dL (0.70-1.20); EST Glomerular Filtration Rate 42 (>60); Estimated Creatinine Clearance 67.43 ml/min (50-250); Globulin 3.1 g/dL (2.2-4.2); Glucose 157 mg/dL (70-99); Magnesium 2.1 mg/dL (1.5-2.2); Phosphorus 2.6 mg/dL (2.7-4.5); Potassium 4.4 mmol/L (3.3-5.1); Protein, Total 7.3 g/dL (5.9-8.4); Sodium Level 136 mmol/L (133-145); Total Bilirubin 0.71 mg/dL (0.00-1.30)
[2024-12-09] MEDS: 0.9% Saline Lock 10 ML Syringe IV ×2 (06:25→21:16)
[2024-12-09] MEDS: Piperacil/Tazobactam 3.375 GM in 0.9% Normal Saline (50mL MB+) 50 ML IV ×3 (06:25→21:11)
[2024-12-09] MEDS: dilTIAZem 30 MG Tablet PO ×3 (06:26→17:30)
[2024-12-09] MEDS: Methylprednisolone Sod Succ 40 MG/ML VIAL IV ×3 (06:26→21:16)
[2024-12-09] MEDS: Ipratropium/Albuterol Sulfate 3 ML AMPUL.NEB INHALATION ×2 (07:11→15:30)
--- NOTE | 2024-12-09 08:15 | ECHOCS_ITS ---
Reason For Study Reason For Study: A fib Procedure This was a 2D Doppler, Color Flow transthoracic echocardiogram. The study was technically difficult. The study was technically limited. Exam performed portable in patient room. Left Ventricle Poor windows due to body habitus. Normal left ventricle. The LV ejection fraction is 55 %. Right Ventricle Poorly visualized. Poorly visualized right ventricle. Atria Poorly visualized but grossly appears within normal limits. Poorly visualized but grossly appears within normal limits. Mitral Valve Poorly visualized but grossly appears normal. Poorly visualized mitral valve. No mitral valve insufficiency. Tricuspid Valve Poorly visualized tricuspid valve. Aortic Valve There is no aortic stenosis. Poorly visualized No obvious aortic valve regurgitation. Pulmonic Valve Poorly visualized. Pericardium/Pleural No pericardial effusion. Medication Diluted definity 1.0ml given slow IV push to enhance endocardial definition. MMode/2D Measurements & Calculations LVAd ap4: 12.1 cm2 LVAd ap2: 10.7 cm2 SV(MOD-sp4): 13.5 ml LVLd ap4: 5.5 cm LVLd ap2: 4.9 cm SI(MOD-sp4): 4.8 ml/m2 EDV(MOD-sp4): 22.7 ml EDV(MOD-sp2): 19.5 ml EDV(sp4-el): 22.7 ml EDV(sp2-el): 19.9 ml LVAs ap4: 7.0 cm2 LVAs ap2: 6.6 cm2 LVLs ap4: 4.5 cm LVLs ap2: 4.5 cm ESV(MOD-sp4): 9.2 ml ESV(MOD-sp2): 8.1 ml ESV(sp4-el): 9.4 ml ESV(sp2-el): 8.3 ml EF(MOD-sp4): 59.4 % EF(MOD-sp2): 58.4 % EF(sp4-el): 58.8 % SV(MOD-sp2): 11.4 ml SV(sp4-el): 13.3 ml SI(MOD-sp2): 4.1 ml/m2 Doppler Measurements & Calculations MV E max jose: 54.7 cm/sec Lat Peak E' Jose: 10.2 cm/sec Med Peak E' Jose: 8.6 cm/sec MV A max jose: 66.4 cm/sec E/E' lat: 5.4 E/E' med: 6.4 MV E/A: 0.82 Ao V2 max: 149.0 cm/sec LV V1 max: 110.7 cm/sec Ao max P.9 mmHg LV V1 max P.9 mmHg ECHO/Echo Complete W/ Contrast Interpretation Summary Poor windows due to body habitus The LV ejection fraction is 55 %. Poorly visualized mitral valve No mitral valve insufficiency. Poorly visualized tricuspid valve Poorly visualized right ventricle Ordering Physician: Mis Edmondson Referring Physician: Jose David Sims MD Performed By: Erin Weinstein RDCS
[2024-12-09 09:15] LABS: Bacteria 0 SEEN /hpf (None Seen); Mucous, Urine 0 SEEN /hpf (<or=2+)
[2024-12-09 09:19] LABS: Color, Urine Yellow (Yellow); Glucose, Dipstick 50 mg/dl (Normal); Ketone-Dipstick 5 mg/dl (Negative); Leukocyte Esterase-Dipstick 25 /ul (Negative); Nitrite-Dipstick Negative (Negative); Occult Blood-Urine 25 /ul (Negative); Protein-Dipstick 100 mg/dl (Negative); Specific Gravity, Urine 1.025 (1.002-1.030); Urine Clarity Sl. Cloudy (Clear); Urine Urobilinogen 1 mg/dl (Normal)
[2024-12-09 09:21] LABS: Urine Bilirubin Dipstick 3 mg/dL (Negative)
[2024-12-09 09:25] LABS: Amorphous Sediment 1+; Fine Granular Cast- Urine 5-10 SEEN /lpf (0-5); Hyaline Cast 0-5 SEEN /lpf (0-5); Squamous Epithelial Cells - UA 0-5 SEEN /hpf (0-5); White Blood Cells 5-10 SEEN /hpf (0-5)
[2024-12-09 09:26] LABS: Red Blood Cells-Urine 0-5 SEEN /hpf (0-5)
--- NOTE | 2024-12-09 10:16 | PCM.CONS.C ---
Assessment & Plan Assessment/Plan (1) Elevated troponin: (2) COPD exacerbation: (3) Dyspnea: (4) Atrial fibrillation with rapid ventricular response: PLAN: Plan 1. Elevated troponin. His high-sensitivity troponins is elevated in the 30s. At this time denies chest pain. This is likely all secondary to demand; he will likely benefit from a stress test. Upon review of his records his last stress test was about 4 years ago at which time it appeared normal. Echocardiogram has been ordered results are pending 2. A-fib apparently rate controlled at this time. Continue anticoagulation at this time. Continue Cardizem 3. COPD 4. Nicotine abuse HPI Consult Data Date of Consult: 12/09/24 HPI Narrative Reason for Consultation: A-fib, elevated troponins, HPI Narrative: MARCEL TURCIOS, is a 64 M who presents with shortness of breath and feeling unwell. He was in the ER earlier today and was admitted for COPD exacerbation. He decided to leave AGAINST MEDICAL ADVICE and came back to the ER after his family urged him to come back. Reports ongoing shortness of breath he reports feeling unwell. He reports occasional chest pain. Pain is left-sided nonradiating moderate in intensity. Its all comes on and off. At this time he has no chest pain. He denies fever, denies chills otherwise has no other complaints. He has been admitted. Cardiac medications restarted. Currently getting antibiotics and being treated for COPD exacerbation. [facility] Medical History PTSD (post-traumatic stress disorder) Foraminal stenosis of lumbosacral region ZAN (obstructive sleep apnea) Back pain Anxiety COPD (chronic obstructive pulmonary disease) Radiculitis of leg Lumbar canal stenosis Foraminal stenosis of lumbosacral region Back pain Anxiety COPD (chronic obstructive pulmonary disease) Obstructive sleep apnea Home Medications ?Medication ?Instructions ?Recorded ?Last Taken ?Type albuterol sulfate 1.25 mg/3 mL 1.25 mg inhalation Q4H PRN PRN 12/08/24 Unknown History solution for nebulization dyspnea budesonide-formoterol HFA 160 2 inh inhalation Q12H 12/08/24 Unknown History mcg-4.5 mcg/actuation aerosol inhaler (Breyna) magnesium oxide 400 mg (241.3 mg 400 mg PO BID 12/08/24 Unknown History magnesium) tablet Allergy/AdvReac Type Severity Reaction Status Date / Time codeine Allergy Hives Verified 12/08/24 21:09 Iodinated Contrast Media Allergy Hives Verified 12/08/24 21:09 (Iodinated Contrast Media - IV Dye) diclofenac AdvReac Swelling Verified 12/08/24 21:09 metaxalone AdvReac Swelling Verified 12/08/24 21:09 methylphenidate (From AdvReac hallucinati Verified 12/08/24 21:09 Ritalin) ons Phenylpiperazine AdvReac Other Verified 12/08/24 21:09 Antidepressant Tetracyclic Antidepressants AdvReac Other Verified 12/08/24 21:09 Tricyclic Antidepressants AdvReac Other Verified 12/08/24 21:09 and Tricy Family History Other Diabetes Hypertension Surgical History S/P epidural steroid injection Social History household members: family Smoking Status: Current every day smoker tobacco type: cigarettes and e-cigarettes alcohol intake: never substance use type: does not use Physical Exam Narrative General?alert oriented, obese HEENT- normal extraocular movements Neck supple JVD difficult to assess Cardiovascular- normal S1-S2, irregular Pulmonary-decreased air entry bilateral bases Abdomen- soft to palpation, normal sounds Extremities- no edema Musculoskeletal- no tenderness no swelling Neurological -alert oriented Psych -normal affect Risk Stratification Risk Stratification Applicable: No Objective Data Vital Signs: Vital Signs Temp Pulse Resp BP Pulse Ox O2 Del Method FiO2 98.2 F 94 20 H 116/66 93 Room Air 21 12/09/24 06:06 12/09/24 08:35 12/09/24 08:35 12/09/24 06:06 12/09/24 06:06 12/09/24 08:35 12/09/24 06:06 Oxygen Delivery Method Room Air Weight: 367 lb 4.642 oz Body Mass Index (BMI) 48.4 Intake & Output: Intake and Output for Last 24 Hours 12/07/24 12/08/24 12/09/24 23:59 23:59 23:59 Intake Total 440 / 440 Output Total 0 / 0 Balance 440 / 440 Lab / Micro Data 12/09/24 05:32 12/09/24 05:32 Labs: Laboratory Results - last 24 hr 12/08/24 02:20: Lactic Acid 1.2 12/08/24 21:20: WBC 20.3 H, RBC 6.14, Hgb 18.4 H*, Hct 53.8, MCV 87.6, MCH 30.0, MCHC 34.2, RDW Std Deviation 48.6 H, RDW Coeff of Penelope 15.8 H, Plt Count 267, MPV 9.0, Immature Gran % (Auto) 0.600, Neut % (Auto) 72.1 H, Lymph % (Auto) 17.5 L, [place] % (Auto) 8.6, Eos % (Auto) 0.4, Baso % (Auto) 0.8, Absolute Neuts (auto) 14.6 H, Absolute Lymphs (auto) 3.55, Nucleated RBC % 0, Differential Comment SCANNED, Sodium 139, Potassium 4.1, Chloride 102, Carbon Dioxide 17.3 L, Anion Gap 20 H, BUN 13, Creatinine 1.50 H, Estim Creat Clear Calc 80.71, Est GFR (MDRD) Non-Af 51 L, BUN/Creatinine Ratio 8.4 L, Glucose 157 H, Calcium 10.2, Troponin T High Sens 36 H D 12/08/24 23:32: Troponin T Hi Sens 2 Hr 34 H, Procalcitonin 0.15 H 12/09/24 05:32: WBC 12.3 H, RBC 5.64, Hgb 16.7 H, Hct 49.6, MCV 87.9, MCH 29.6, MCHC 33.7, RDW Std Deviation 49.1 H, RDW Coeff of [place] 15.4 H, Plt Count 214, MPV 9.1, Immature Gran % (Auto) 0.500, Neut % (Auto) 75.7 H, Lymph % (Auto) 16.7 L, [place] % (Auto) 6.4, Eos % (Auto) 0.2, Baso % (Auto) 0.5, Absolute Neuts (auto) 9.3 H, Absolute Lymphs (auto) 2.05, Nucleated RBC % 0, Sodium 136, Potassium 4.4, Chloride 105, Carbon Dioxide 18.1 L, Anion Gap 13, BUN 18, Creatinine 1.77 H, Estim Creat Clear Calc 67.43, Est GFR (MDRD) Non-Af 42 L, BUN/Creatinine Ratio 10.0, Glucose 157 H, Calcium 9.2, Phosphorus 2.6 L, Magnesium 2.1, Total Bilirubin 0.71, AST 37, ALT 60 H, Alkaline Phosphatase 77, Total Protein 7.3, Albumin 4.1, Globulin 3.1, Albumin/Globulin Ratio 1.3, TSH 3.020 12/09/24 09:06: Urine Color Yellow, Urine Clarity Sl. Cloudy, Urine pH 5.0, Ur Specific [place] 1.025, Urine Protein 100 H, Urine Glucose (UA) 50 H, Urine Ketones 5 H, Urine Occult Blood 25 H, Urine Nitrite Negative, Urine Bilirubin 3 H, Urine Urobilinogen 1 H, Ur Leukocyte Esterase 25 H, Urine RBC 0-5 SEEN, Urine WBC 5-10 SEEN, Ur Squamous Epith Cells 0-5 SEEN, Amorphous Sediment 1+, Urine Bacteria 0 SEEN, Hyaline Casts 0-5 SEEN, Fine Granular Casts 5-10 SEEN, Urine Mucus 0 SEEN Micro: Microbiology 12/09/24 03:35 Mucosa - Nasopharyngeal Respiratory Panel (PCR) - Final 12/09/24 02:59 Nasal Secretion SARS-CoV-2 Antigen (Rapid) - Final ABG Data ABG results: ABG 12/09/24 00:38 Specimen Type ART Sample Site R Brach pH 7.35 Bicarbonate Actual 24.1 Total CO2 25 Base Excess -2 O2 Saturation 93 L O2 % 21.0 ABG pCO2 43.5 ABG pO2 71 L Jose Test Positive O2 Delivery Device BiPAP Vent Mode Not entered Clinical Comments Home unit: 17/5 21% Cardiology Labs/Tests 12/08/24 02:20: Lactic Acid 1.2 12/08/24 21:20: WBC 20.3 H, RBC 6.14, Hgb 18.4 H*, Hct 53.8, MCV 87.6, MCH 30.0, MCHC 34.2, Plt Count 267, MPV 9.0, Immature Gran % (Auto) 0.600, Neut % (Auto) 72.1 H, Lymph % (Auto) 17.5 L, [place] % (Auto) 8.6, Eos % (Auto) 0.4, Baso % (Auto) 0.8, Absolute Neuts (auto) 14.6 H, Nucleated RBC % 0, Sodium 139, Potassium 4.1, Chloride 102, Carbon Dioxide 17.3 L, Anion Gap 20 H, BUN 13, Creatinine 1.50 H, Est GFR (MDRD) Non-Af 51 L, BUN/Creatinine Ratio 8.4 L, Glucose 157 H, Calcium 10.2 12/09/24 00:38: pH 7.35, Bicarbonate Actual 24.1, Base Excess -2, O2 Saturation 93 L, ABG pCO2 43.5, ABG pO2 71 L, Jose Test Positive 12/09/24 05:32: WBC 12.3 H, RBC 5.64, Hgb 16.7 H, Hct 49.6, MCV 87.9, MCH 29.6, MCHC 33.7, Plt Count 214, MPV 9.1, Immature Gran % (Auto) 0.500, Neut % (Auto) 75.7 H, Lymph % (Auto) 16.7 L, [place] % (Auto) 6.4, Eos % (Auto) 0.2, Baso % (Auto) 0.5, Absolute Neuts (auto) 9.3 H, Nucleated RBC % 0, Sodium 136, Potassium 4.4, Chloride 105, Carbon Dioxide 18.1 L, Anion Gap 13, BUN 18, Creatinine 1.77 H, Est GFR (MDRD) Non-Af 42 L, BUN/Creatinine Ratio 10.0, Glucose 157 H, Calcium 9.2, Phosphorus 2.6 L, Magnesium 2.1, Total Bilirubin 0.71 12/09/24 09:06: Urine Color Yellow, Urine Clarity Sl. Cloudy, Urine pH 5.0, Ur Specific [place] 1.025, Urine Protein 100 H, Urine Glucose (UA) 50 H, Urine Ketones 5 H, Urine Occult Blood 25 H, Urine Nitrite Negative, Urine Bilirubin 3 H, Urine Urobilinogen 1 H, Ur Leukocyte Esterase 25 H, Urine RBC 0-5 SEEN, Urine WBC 5-10 SEEN Rhythm: EKG: ECHO: Stress Test: Cardiac Cath: PCI: CT Surgery: Holter monitor: EPS: PPM: CXR: Chest CT Scan: Radiography Diagnostic Testing: Radiology Impression Chest X-Ray 12/08/24 21:48 IMPRESSION: 1. Right lower lobe opacity, which may represent atelectasis or pneumonitis/pneumonia. 2. Mild cardiomegaly. Reading Location: [id number] Chest CT 12/08/24 23:54 IMPRESSION: Coronary artery calcification (CAC) is is present Subsegmental atelectasis/consolidation in the lingula. Please evaluate to exclude superimposed pneumonia. Reading [facility]
[2024-12-09] MEDS: APIXABAN 5 MG TABLET PO ×2 (10:25→21:14)
[2024-12-09] MEDS: Magnesium Chloride 64 MG Delay Rel.Tablet 128 MG PO ×2 (10:25→21:12)
[2024-12-09] MEDS: guaiFENesin 1,200 MG Tablet 1200 MG PO (10:25)
--- NOTE | 2024-12-09 16:00 | CASEMGMT ---
RN CM readmission note: Index admission: 12/08/24-12/08/24. Admitted w/acute COPD exac. Went into A-Fib/RVR, HR in 180's. Given Cardizem bolus and started on Cardizem gtt. Left AMA. Initial RN CM assessment had not been completed on this index admission. Current admission: Returned to ED 12/08/24 PM d/t increasing SOB. Pt reports has hx of PTSD, felt very anxious, and decided to leave earlier. His family convinced him to return to ED He was willing to be admitted and to receive treatment. Pt has hx of A-fib/RVR (08/2023) He is not on anti-coagulant. Hx: COPD, ZAN, PTSD, anxiety, foraminal stenosis of lumbosacral region, back pain. He smokes 4 PPD. RN CM teacher public health CM was in room around 1430 PM to complete initial RN CM assessment. RN CM introduced self and role. Pt voiced understanding and consented to assessment at that time. When RN CM was verifying NOK & contact info, pt became upset and stated he was starting to feel very anxious and angry. He requested Ativan and did not want to answer any further questions at that time. RN, Lona, was notified and received order for Ativan. Pt was medicated w/Ativan. This RN CM returned to room at this time (1600). Pt resting in bed and is calm. Pt apologized for getting upset w/RN CM earlier, and became tearful, stating he struggles w/PTSD and being in the hospital and is agreeable to talking w/this RN CM and completing assessment now. Pt is A/O at this time and answers all questions appropriately.?? Care providers, pharmacy, and demographics verified/updated at this time. PCP: Dr Jose David Sims. Pt had not seen him for about 10-15 yrs. He states his grand-daughter just talked him into going to see him yesterday, and he did go. Specialists: none Preferred [facility] Insurance: [facility] Prescription Benefit:?yes. Pt on Eliquis at this time that was started this admission. Pt made aware of medication and reason for taking. Questions answered. Pt states he has issues w/bleeding easily. He is agreeable to taking it during hospitalization to see how he does with it, but he is not sure if he will be agreeable taking it @ dc. He wishes to talk w/physician about it 1st before making the decision. He was made aware, if he does decide to take it @ dc, that he will be given an Eliquis 30-day free trial offer card and to f/u with PCP if refills are not affordable. He voices understanding. Living Will/HPOA:?Pt does not currently have LW/HCPOA and declines info at this time. LNOK: Pt has son, Tripp, and daughter, Padma. Several grand-children. Tripp was listed as NOK but noted that the phone # listed under his name was the same # as pt's. Pt states he does not know his #. He states he does not want anyone listed on his contact list, not even for emergencies and demanded that this RN CM remove him from his emergency list & does not want anyone added. He states his grandson's , Amparo Davis (PH: [phone]), who he calls his granddaughter, lives in [place]. He states she has been helping him w/insurance and other health-related things and that she is the one who encouraged him to see his PCP yesterday. He states he gives permission for her to call in to [facility] and get updates on his medical condition, but does not want anyone calling her (Amparo) for any reason, not even emergencies. RNLona, made aware and to put this in nursing handoff. first leveler, Keturah, also made aware. Living Arrangements: Pt lives alone in mobile home w/total of 5 steps to enter. He reports being independent in the home. He states, however, that he rarely leaves his home, especially in the summer. He states he has difficulty breathing when it is hot outside and go only go out for short amt of time. He states he doesn't want to bother his family, stating they are so busy with their own family, so he doesn't ask them for help. He states he does not have much food in the home and has just told his family that he is on a diet so they won't know he is in need of food. He states, It's helpful for me to lose weight anyway. RN EDIN inquired if has ever had his groceries delivered and he states he has not, stating he has looked @ the [employer], but it looked too difficult. MARGI JESUS pulled up the alexis while in the room w/pt and showed him how to use it. He state he feels it is pretty simple now that someone has shown him how to use it and plans to start using that to order his groceries. He voiced appreciation. He reports having enough finances to purchase groceries. Transportation:?self, family DME: ?States has the following DME:?cane he uses on occasion, nebulizer, Resmed traction unit. No home O2. Currently on RA. He declines needing any further DME. ?? HHC/SNF: No hx of either. Nicotine: Pt smokes 4 PPD. He states, No one will ever get me to stop smoking. That's my anti-depressant. He states he has struggled w/depression for many years and smoking is what seems to help the most. He states he has tried counseling and it was useless. He states he has tried anti-depressants as well and they made him worse. Pt wishes to return home and states has no concerns with going home at time of discharge.??He declines wanting HHC or OP therapy. He states if he ever would want or need therapy, it would have to be @ home, d/t difficulty going out of his home but he does not want it now. CM?to follow for any further discharge planning/needs.? Pt voices no further concerns/needs at this time.? Advised pt to ask for?CM?if any further questions/concerns/needs arise.? Voices understanding. PLAN:??Home. Follow for possible Eliquis @ dc. Pt wants to talk w/physician about this before deciding if he will be agreeable to take @ dc. If he is agreeable, pt to be provided w/Eliquis 30-day free trial offer card. PT/OT evals pending. Follow for any recommendations. Follow for possible home o2. Dillan BURCHN?RN?CM
--- NOTE | 2024-12-09 16:39 | PN_ITS ---
Subjective Subjective Patient seen and examined. He had no complaints this morning. Patient was admitted yesterday for hypoxia due to presumptive COPD exacerbation as well as A-fib with RVR. However he signed out AGAINST MEDICAL ADVICE. He subsequently came back to the hospital a few hours later. He admits to feeling very anxious. Reveiw of systems is otherwise negative. Objective Data Objective Data Vital Signs: Vital Signs Temp Pulse Resp BP Pulse Ox O2 Del Method FiO2 98.2 F 93 18 124/71 H 93 Room Air 21 12/09/24 10:22 12/09/24 15:32 12/09/24 15:32 12/09/24 12:06 12/09/24 10:22 12/09/24 14:38 12/09/24 06:06 Oxygen Delivery Method Room Air Weight: 367 lb 4.642 oz Body Mass Index (BMI) 48.4 Intake & Output: Intake and Output for Last 24 Hours 12/07/24 12/08/24 12/09/24 23:59 23:59 23:59 Intake Total / Output Total 0 / 0 Balance / Lab / Micro Data 12/09/24 05:32 12/09/24 05:32 Labs: Laboratory Results - last 24 hr 12/08/24 02:20: Lactic Acid 1.2 12/08/24 21:20: WBC 20.3 H, RBC 6.14, Hgb 18.4 H*, Hct 53.8, MCV 87.6, MCH 30.0, MCHC 34.2, RDW Std Deviation 48.6 H, RDW Coeff of Penelope 15.8 H, Plt Count 267, MPV 9.0, Immature Gran % (Auto) 0.600, Neut % (Auto) 72.1 H, Lymph % (Auto) 17.5 L, [place] % (Auto) 8.6, Eos % (Auto) 0.4, Baso % (Auto) 0.8, Absolute Neuts (auto) 14.6 H, Absolute Lymphs (auto) 3.55, Nucleated RBC % 0, Differential Comment SCANNED, Sodium 139, Potassium 4.1, Chloride 102, Carbon Dioxide 17.3 L, Anion Gap 20 H, BUN 13, Creatinine 1.50 H, Estim Creat Clear Calc 80.71, Est GFR (MDRD) Non-Af 51 L, BUN/Creatinine Ratio 8.4 L, Glucose 157 H, Calcium 10.2, T roponin T High Sens 36 H D 12/08/24 23:32: Troponin T Hi Sens 2 Hr 34 H, Procalcitonin 0.15 H 12/09/24 05:32: WBC 12.3 H, RBC 5.64, Hgb 16.7 H, Hct 49.6, MCV 87.9, MCH 29.6, MCHC 33.7, RDW Std Deviation 49.1 H, RDW Coeff of Penelope 15.4 H, Plt Count 214, MPV 9.1, Immature Gran % (Auto) 0.500, Neut % (Auto) 75.7 H, Lymph % (Auto) 16.7 L, [place] % (Auto) 6.4, Eos % (Auto) 0.2, Baso % (Auto) 0.5, Absolute Neuts (auto) 9.3 H, Absolute Lymphs (auto) 2.05, Nucleated RBC % 0, Sodium 136, Potassium 4.4, Chloride 105, Carbon Dioxide 18.1 L, Anion Gap 13, BUN 18, Creatinine 1.77 H, Estim Creat Clear Calc 67.43, Est GFR (MDRD) Non-Af 42 L, BUN/Creatinine Ratio 10.0, Glucose 157 H, Calcium 9.2, Phosphorus 2.6 L, Magnesium 2.1, Total Bilirubin 0.71, AST 37, ALT 60 H, Alkaline Phosphatase 77, Total Protein 7.3, Albumin 4.1, Globulin 3.1, Albumin/Globulin Ratio 1.3, TSH 3.020 12/09/24 09:06: Urine Color Yellow, Urine Clarity Sl. Cloudy, Urine pH 5.0, Ur Specific [place] 1.025, Urine Protein 100 H, Urine Glucose (UA) 50 H, Urine Ketones 5 H, Urine Occult Blood 25 H, Urine Nitrite Negative, Urine Bilirubin 3 H, Urine Urobilinogen 1 H, Ur Leukocyte Esterase 25 H, Urine RBC 0-5 SEEN, Urine WBC 5-10 SEEN, Ur Squamous Epith Cells 0-5 SEEN, Amorphous Sediment 1+, Urine Bacteria 0 SEEN, Hyaline Casts 0-5 SEEN, Fine Granular Casts 5-10 SEEN, Urine Mucus 0 SEEN Micro: Microbiology 12/09/24 07:30 Sputum, Expectorated/Coughed Gram Stain - Final 12/09/24 07:30 Sputum, Expectorated/Coughed Respiratory Culture - Final 12/09/24 03:35 Mucosa - Nasopharyngeal Respiratory Panel (PCR) - Final 12/09/24 02:59 Nasal Secretion SARS-CoV-2 Antigen (Rapid) - Final ABG Data ABG results: ABG 12/09/24 00:38 Specimen Type ART Sample Site R Brach pH 7.35 Bicarbonate Actual 24.1 Total CO2 25 Base Excess -2 O2 Saturation 93 L O2 % 21.0 ABG pCO2 43.5 ABG pO2 71 L Jose Test Positive O2 Delivery Device BiPAP Vent Mode Not entered Clinical Comments Home unit: 11/11 21% Radiography Diagnostic Testing: Radiology Impression Chest X-Ray 12/08/24 21:48 IMPRESSION: 1. Right lower lobe opacity, which may represent atelectasis or pneumonitis/pneumonia. 2. Mild cardiomegaly. Reading [facility] Chest CT 12/08/24 23:54 IMPRESSION: Coronary artery calcification (CAC) is is present Subsegmental atelectasis/consolidation in the lingula. Please evaluate to exclude superimposed pneumonia. Reading [facility] Echocardiogram 12/09/24 08:15 Interpretation Summary Poor windows due to body habitus The LV ejection fraction is 55 %. Poorly visualized mitral valve No mitral valve insufficiency. Poorly visualized tricuspid valve Poorly visualized right ventricle Ordering Physician: Mis Edmondson Referring Physician: Jose David Sims MD Performed By: Erin Weinstein, RDKANDI Physical Exam Const alert, oriented x3 and no apparent distress Constitutional Narrative: class III obesity General Appearance: cooperative HEENT normocephalic, head/scalp atraumatic, moist oral mucous membranes and oropharynx normal Eyes PERRL and EOMs intact bilaterally Neck supple Lymph Lymphatic: no lymphedema noted Resp Resp Narrative: Mildly diminished breath sounds bibasilarly. No wheezes or crackles. On room air. Cardio regular rhythm, S1 normal heart sound, S2 normal heart sound and no murmurs GI normal to inspection, nondistended, normoactive bowel sounds, soft to palpation, non-tender and non-distended GI Narrative: obese abdomen Extremity normal capillary refill, no clubbing, cyanosis or edema and no calf tenderness General Extremity: no tenderness to palpation of joints or extremities Skin General Skin Exam: no breakdown Neuro no focal motor deficits and no sensory deficits noted Motor Exam: strength 5/5 throughout Psych cooperative Mood & Affect: anxious Assessment & Plan Assessment/Plan (1) Acute respiratory failure with hypoxia: PLAN: Plan #Hypoxia due to community-acquired pneumonia and COPD exacerbation * Patient shortness of breath is improved. He was on BiPAP yesterday but is now on oxygen by nasal cannula. Chest x-ray showed evidence of consolidation in the lingula and his WBC was elevated. * Respiratory panel negative. On IV Solu-Medrol 40 mg every 8. On ceftriaxone and azithromycin. Breathing treatments bronchodilators. Titrate oxygen to maintain saturation above 90%. Respiratory panel was negative. * WBC was 21.3 on admission and is now down to 12.3. * Procalcitonin was elevated at 0.15. * #TAINA: * Creatinine was 1.5 on admission and is now up to 1.77. Hydrate gently with IV fluids and if creatinine does not trend downwards we will do further workup. #Elevated troponin * thought to be likely due to hypoxia. * Initial troponin was 20 and trended up to a peak of 36. 2D echo ordered. * EKG showed no acute ST changes. BNP was only 310. * 2D echo showed EF of 55% with poorly visualized valves due to body habitus. #A-fib with RVR * Patient was diagnosed with A-fib with RVR about a year ago and placed on metoprolol. However he said that metoprolol made him gain weight so he stopped taking it. Was not put on any anticoagulation. * Currently on Lovenox. Placed on Cardizem p.o. Cardiology consulted. TSH normal. #Chronic nicotine dependence * Smokes about 4 packs a day. Counseled to quit. Nicotine patch 21 mg daily. * #History of PTSD * Has a history of severe PTSD. On Ativan as needed. * #Class III obesity: BMI is 48.5. (Acutely, expected recovery prognosis. DVT prophylaxis: Already on Eliquis Time spent on patient today: 32 minutes. Charges/Coding Visit Charges Inpatient E&M: 55997 PROLNG IP/OBS E/M EA 15 MIN
[2024-12-10 00:17] VITALS: BP 128/76; PULSE 72; RESP 18; TEMP 36.7; O2SAT 92
[2024-12-10] MEDS: dilTIAZem 30 MG Tablet PO ×2 (00:20→05:58)
[2024-12-10] MEDS: 0.9% Saline Lock 10 ML Syringe IV (05:44)
[2024-12-10] MEDS: Lorazepam 2 MG/ML WCH Syringe 1 MG IV (05:44)
[2024-12-10] MEDS: Methylprednisolone Sod Succ 40 MG/ML VIAL IV (05:46)
[2024-12-10] MEDS: Piperacil/Tazobactam 3.375 GM in 0.9% Normal Saline (50mL MB+) 50 ML IV (05:46)
--- NOTE | 2024-12-10 05:48 | PCM.HOSP.N ---
Hospitalist Note Called as patient was extremely agitated and threatening to sign out AGAINST MEDICAL ADVICE. He had multiple complaints. 1 was with regards to telemetry. I did explain the reason for ongoing telemetry and he did seem to accept that explanation and agreed to wear telemetry. His second complaint dealt with his CPAP machine not working. We have discussed this with respiratory therapy and their intent is to find a CPAP machine with nasal pillows to utilize for him to substitute for his machine machine. He states he is on a fixed income and is concerned about being able to afford a new one, and with his CPAP currently not working at home he is very concerned about that. I did discuss with him that case management/SW would talk to him on Wednesday with regards to this. He is on [facility] Medicare so they should be able to cover that. He is also upset about his fall risk. He evidently had an episode in the emergency department where he lowered himself to the ground because he had a coughing attack and felt like he was going to pass out due to his coughing. He is unable to use the urinal and needs to sit down on the toilet to urinate and defecate. He would like to be able to do so. He is agreeable to a bedside commode but states if they turn his bed alarm on he is going to adamantly ignore it. I did give him 1 mg of IV Ativan to help calm him down we will continue his as needed Ativan as ordered with no change. Patient would markedly benefit from psych follow-up to help better manage his PTSD after discharge.
[2024-12-10 05:56] VITALS: BP 151/105; PULSE 166; RESP 24; TEMP 36.3; O2SAT 92
--- NOTE | 2024-12-10 06:46 | NURSING ---
This RN to pt room d/t yelling. Pt yelling release me!. Prior to entering the room, this RN requested security come be nearby. Also requested Dr. Burgos and warehouse record clerk Alondra to floor. Upon entering pt room, pt states that he wants properly released. States that he doesn't want to leave AMA because he had an ultimatum with his family. Dr. Burgos and warehouse record clerk entered the room. Pt became more agitated and threw his telemetry box. Michelle turcios was called overhead. Pt walked off the unit. Security, warehouse record clerk, Dr. Burgos aware.
--- NOTE | 2024-12-10 06:50 | NURSING ---
Patient agitated and very upset wanting to leave AMA. Dr. Burgos in to patient's room for the second time to try and calm him down and educate on why he is not medically ready for discharge. Patient states he is going to refuse to eat, drink or sleep while he is here. Also states he will leave AMA and end his life at one of his campgrounds. Dr. Burgos states to patient he is now a threat to himself and she is going to pink slip him and he is not allowed to leave. Patient now getting very angry yelling at staff, throwing telemetry box across the room and pulling out IV. Michelle turcios called. Cattle Rancher called [facility]. Patient walked off the unit @ 0700.
--- NOTE | 2024-12-10 06:50 | CPS ---
Pt refused aerosol. Pt yelling that we owe him a CPAP & now a mask because we lost it. The CPAP was damaged when pt rolled over in bed, CPAP machine fell to the ground. This RT searched the room for his mask and found it and his CPAP electrical cord, it was returned to him. Lisa RN in room d/t patient's agitation and threats against staff.
--- NOTE | 2024-12-10 07:00 | NURSING ---
PT walking out of room, this RN, senior c web developer Luiz and Dr Burgos following patient out of room to elevator. Pt reminded that he is now pink-slipped and not allowed to leave. Pt got into elevator, this RN followed in other elevator. Pt walked down hallway towards main entrance, turned at the kiosk and walked towards the exit door. [place] [employer] officer met us while walking. Pt yelling,stating he's is not gonna stay, pushed officer and security. Pt extremely short of breath with audible wheezes. PT assisted to chair and wheelchair. Pt wheeled back to PCU, placed back PCU 105. PT daughter now at bedside.
[2024-12-10] MEDS: APIXABAN 5 MG TABLET PO (09:17)
[2024-12-10] MEDS: Magnesium Chloride 64 MG Delay Rel.Tablet 128 MG PO (09:17)
--- NOTE | 2024-12-10 10:52 | PCM.PN.CARD ---
Subjective Subjective wants to go home says SOB at his baseline Objective Data Vital Signs: Vital Signs Temp Pulse Resp BP Pulse Ox O2 Del Method O2 Flow Rate 97.4 F L 166 H 24 H 151/105 H 92 Room Air 2 12/10/24 05:56 12/10/24 05:56 12/10/24 05:56 12/10/24 05:56 12/10/24 05:56 12/10/24 06:50 12/09/24 20:23 FiO2 21 12/09/24 06:06 Oxygen Flow Rate (L/min) 2 Oxygen Delivery Method Room Air Weight: 367 lb 4.642 oz Body Mass Index (BMI) 48.4 Intake & Output: Intake and Output for Last 24 Hours 12/08/24 12/09/24 12/10/24 23:59 23:59 23:59 Intake Total 3475.25 / 3675.25 323.33 / 323.33 Output Total 0 / 0 Balance 3475.25 / 3675.25 323.33 / 323.33 Lab / Micro Data 12/09/24 05:32 12/09/24 05:32 Micro: Microbiology 12/09/24 07:30 Sputum, Expectorated/Coughed Gram Stain - Final 12/09/24 07:30 Sputum, Expectorated/Coughed Respiratory Culture - Final 12/09/24 03:35 Mucosa - Nasopharyngeal Respiratory Panel (PCR) - Final Cardiology Labs/Tests Rhythm: EKG: ECHO: Stress Test: Cardiac Cath: PCI: CT Surgery: Holter monitor: EPS: PPM: CXR: Chest CT Scan: Radiography Diagnostic Testing: Radiology Impression Echocardiogram 12/09/24 08:15 Interpretation Summary Poor windows due to body habitus The LV ejection fraction is 55 %. Poorly visualized mitral valve No mitral valve insufficiency. Poorly visualized tricuspid valve Poorly visualized right ventricle Ordering Physician: Mis Edmondson Referring Physician: Jose David Sims MD Performed By: Erin Weinstein RDCS Physical Exam Narrative General?alert oriented, obese HEENT- normal extraocular movements Neck supple JVD difficult to assess Cardiovascular- normal S1-S2, irregular Pulmonary-decreased air entry bilateral bases Abdomen- soft to palpation, normal sounds Extremities- no edema, not tender Musculoskeletal- no tenderness no swelling Neurological -alert oriented Psych -normal affect Assessment & Plan Assessment/Plan (1) Elevated troponin: (2) COPD exacerbation: (3) Dyspnea: (4) Atrial fibrillation with rapid ventricular response: PLAN: Plan 1. Elevated troponin. His high-sensitivity troponins is elevated in the 30s. At this time denies chest pain. This is likely all secondary to demand; he will likely benefit from a stress test. Upon review of his records his last stress test was about 4 years ago at which time it appeared normal. Echocardiogram has been ordered results are pending. He wants to go home. Will plan for outpatient stress test. 2. A-fib mostly rate controlled. Went into an episode of A-fib RVR earlier today. He wants to go home. Continue anticoagulation at this time. Continue Cardizem. Will follow-up as an outpatient- will likely need a 30-day event monitor to determine his A-fib burden/rate. 3. COPD 4. Nicotine abuse
--- NOTE | 2024-12-10 10:58 | NURSING ---
Patient refused all care. Cleared by crisis team and suicide protocol ended - Craig RN
--- NOTE | 2024-12-10 15:39 | DS.PCM_ITS ---
Providers Date of Admission: 12/09/24 Date of Discharge: 12/10/24 Primary Care Physician: Dr. Jose David Sims MD Consultations 12/09/24 02:04 Consult: Cardiology Routine Consulting Provider: Asael Marino Reason for Consult: new onset afib EMERGENT Consult: No MD Notified: Yes Date Notified: 12/09/24 Time Notified: 06:59 Method of Notification: Text Reason For Visit: ACUTE HYPOXIC RESPIRATORY FAILURE Diagnosis Discharge Diagnosis (1) Elevated troponin: Status: Acute Code(s): R79.89 - Other specified abnormal findings of blood chemistry (2) COPD exacerbation: Status: Chronic Code(s): J44.1 - Chronic obstructive pulmonary disease with (acute) exacerbation (3) Dyspnea: Status: Acute Code(s): R06.00 - Dyspnea, unspecified (4) Atrial fibrillation with rapid ventricular response: Status: Acute Code(s): I48.91 - Unspecified atrial fibrillation Plan #Hypoxia due to community-acquired pneumonia and COPD exacerbation * Patient shortness of breath is improved. He was on BiPAP yesterday but is now on oxygen by nasal cannula. Chest x-ray showed evidence of consolidation in the lingula and his WBC was elevated. * Respiratory panel negative. On IV Solu-Medrol 40 mg every 8. On ceftriaxone and azithromycin. Breathing treatments bronchodilators. Titrate oxygen to maintain saturation above 90%. Respiratory panel was negative. * WBC was 21.3 on admission and is now down to 12.3. * Procalcitonin was elevated at 0.15. * #TAINA: * Creatinine was 1.5 on admission and is now up to 1.77. Hydrate gently with IV fluids and if creatinine does not trend downwards we will do further workup. #Elevated troponin * thought to be likely due to hypoxia. * Initial troponin was 20 and trended up to a peak of 36. 2D echo ordered. * EKG showed no acute ST changes. BNP was only 310. * 2D echo showed EF of 55% with poorly visualized valves due to body habitus. #A-fib with RVR * Patient was diagnosed with A-fib with RVR about a year ago and placed on metoprolol. However he said that metoprolol made him gain weight so he stopped taking it. Was not put on any anticoagulation. * Currently on Lovenox. Placed on Cardizem p.o. Cardiology consulted. TSH normal. #Chronic nicotine dependence * Smokes about 4 packs a day. Counseled to quit. Nicotine patch 21 mg daily. * #History of PTSD * Has a history of severe PTSD. On Ativan as needed. * #Class III obesity: BMI is 48.5. (Acutely, expected recovery prognosis. DVT prophylaxis: Already on Eliquis Time spent on patient today: 32 minutes. Medications at Discharge Home Medications albuterol sulfate 1.25 mg/3 mL solution for nebulization 1.25 mg inhalation Q4H PRN PRN dyspnea 12/08/24 budesonide-formoterol HFA 160 mcg-4.5 mcg/actuation aerosol inhaler (Breyna) 2 inh inhalation Q12H 12/08/24 magnesium oxide 400 mg (241.3 mg magnesium) tablet 400 mg PO BID 12/08/24 Hospital Course Operations None Procedures None Summary of Care Provided Minutes Spent on Discharge: 55 Hospital Course: Patient is a 64-year-old male with a past medical history as outlined was admitted through the ED on 12/08/2024 with complaint of shortness of breath. He had presented to the ED the same day with similar complaints and was admitted to be managed for acute exacerbation of heart failure as well as A-fib with RVR and acute hypoxic respiratory failure due to COPD examination. However he signed out on the same day. He came back on the evening of 12/08/2024 due to worsening shortness of breath and after being convinced by his family to come back. He says he was diagnosed with A-fib about a year ago and was discharged on metoprolol but it made him gain weight so he stopped taking it. He was not on any anticoagulation. He had associated orthopnea and wheezing but no PND. He did smoke about 4 packs of cigarettes daily. He denied any chest pain, cough, nausea vomiting or any other such symptoms. On coming to the ED for the second time, his heart rate was 125 respiratory rate was 38 which showed labored breathing and use of accessory muscles and he was also gasping. ABG done showed PO2 of 71 and pCO2 of 43.5 with pH of 7.35. Chemistry showed new anion gap metabolic acidosis and TAINA as creatinine was 1.5 with creatinine earlier that day being 1.01. Initial troponin was 36 and the delta troponin was 34. Procalcitonin was 0.15. EKG showed A-fib with RVR and chest x-ray showed right lower lobe opacity and mild cardiomegaly. CT of the chest done showed subsegmental atelectasis or consolidation of the lingula. He was admitted to be treated for hypoxia due to probable community-acquired pneumonia and A-fib with RVR. He was placed on IV Zosyn as well as IV Solu-Medrol for COPD exacerbation and breathing treatments bronchodilators. Cardiology was consulted and he had 2D echo which showed poor windows due to body habitus and EF of 55% with poorly visualized valves. Patient's hospital course was complicated by agitation in the early hours of 12/10/2024. He was upset that he was on telemetry and also said that his CPAP machine was not working. He was concerned about being able to afford a new CPAP based on his fixed income and also said that he felt he had fallen because he had a coughing attack and felt he was going to pass out due to his coughing. Patient became very agitated and despite being given Ativan remained very agitated and demanded to be discharged and security was called. According to rubber boots and shoes repairer documentation, patient also said if he left AMA he would go away and never be seen again and said he would not eat, drink or sleep. Based on this, a code tam was called as he tried to walk out the door and patient was pink slipped. Patient was seen on the morning of 12/10/2024. I saw patient in the presence of his nurse and his daughter and grandson were also present. Patient was still agitated and was very upset that he had been pink slipped as he denied any suicidal or homicidal ideations and Stating that he would never do that to his family whom he loved very much. Patient stated that he wanted to be discharged but wanted the physician signature on his discharge. I explained to him that he was not medically stable to be discharged and so could not be discharged. He would have to sign out AGAINST MEDICAL ADVICE if he was cleared by mental health crisis team. I explained to patient that since he was pink slipped would have to get the mental health crisis team to evaluate him to see if he needed inpatient psych evaluation or they did not think that he needed any psych evaluation as he was not suicidal. Patient had a litany of complaints and stated that he felt he had been slanted by the rubber boots and shoes repairer because he had been pink slipped. He said he was going to get a corporate manager to look into whether he go to the rubber boots and shoes repairer in the hospital because of this perceived [place]. Patient said because of his PTSD he got very agitated and so had been triggered by being in the hospital. Patient was calm down and reassured and he was agreeable to the mental health crisis team evaluating him. Mental health crisis team did evaluate patient on the morning of 12/10/2024. The mental health psychiatric social worker supervisor whom I spoke to on the phone after she saw the patient stated that she did not think that the patient had any suicidal or homicidal ideation and they had discussed the safety plan with him. She therefore felt he could be taken out of the pink slip status. Patient promptly signed out AGAINST MEDICAL ADVICE after this. Labs and vitals were reviewed. Physical Exam Const alert, oriented x3 and well nourished; Negative for average body habitus or healthy appearing Constitutional Narrative: class III obesity General Appearance: cooperative HEENT normocephalic, head/scalp atraumatic, hearing grossly normal bilaterally and moist oral mucous membranes Eyes PERRL and EOMs intact bilaterally Neck supple Neck Narrative: Trachea midline Lymph Lymphatic: no lymphedema noted Resp Resp Narrative: Mildly diminished breath sounds bibasilarly. No crackles. On room air. Auscultation: wheezes Cardio regular rhythm, S1 normal heart sound, S2 normal heart sound and no murmurs Cardio Narrative: class III obesity with distant heart sounds GI normal to inspection, nondistended, normoactive bowel sounds, soft to palpation, non-tender and non-distended GI Narrative: obese abdomen Extremity normal capillary refill, no clubbing, cyanosis or edema and no calf tenderness General Extremity: no tenderness to palpation of joints or extremities Skin Skin Narrative: Multiple tattoos but no specific lesions noted General Skin Exam: no breakdown Neuro oriented x3, moves all extremities, no focal motor deficits and no sensory deficits noted Speech: speech normal Motor Exam: strength 5/5 throughout Psych Psych Narrative: very anxious Weight / BMI Weight Weight: 367 lb 4.642 oz Body Mass Index (BMI) 48.4 ABG / Lab / Microbiology Data 12/09/24 05:32 12/09/24 05:32 Microbiology: Microbiology 12/09/24 07:30 Sputum, Expectorated/Coughed Gram Stain - Final 12/09/24 07:30 Sputum, Expectorated/Coughed Respiratory Culture - Final 12/09/24 03:35 Mucosa - Nasopharyngeal Respiratory Panel (PCR) - Final 12/09/24 02:59 Nasal Secretion SARS-CoV-2 Antigen (Rapid) - Final D/C Instructions DC O2, CPAP, BIPAP Needs Home O2 Discharge instructions: No Meaningful Use Info Meaningful Use Meaningful Use Diagnoses (Choose all that apply): None applicable Ischemic Stroke Statin Dosing Therapy Reference: STATIN DOSE THERAPY REFERENCE: * Patients > 75 years receive moderate or high dose statin therapy. * Patients 75 years or YOUNGER should receive HIGH intensity statin dose unless contraindicated. You will be required to document reason for non-treatment if statin daily dose does not meet guidelines. HIGH DOSE STATIN THERAPY DAILY Atorvastatin > than or = to 40 mg Rosuvastatin > than or = to 20 mg Amlodipine + Atorvastatin > than or = to 2.5/40 mg Ezetimibe + Simvastatin 10/80 mg Simvastatin 80mg Discharge Plan Admission Admit Date/Time: 12/09/24 00:58 Primary Reason for Your Visit: afib with RVR, community acquired pneumonia Attending Provider: Mis Edmondson Primary Care Provider: Jose David Sims Consulting Providers: Asael Marino; Odilia Burgos Discharge Orders/Prescriptions Prescriptions: No Action albuterol sulfate 1.25 mg/3 mL solution for nebulization 1.25 mg inhalation Q4H PRN PRN (Reason: dyspnea) magnesium oxide 400 mg (241.3 mg magnesium) tablet 400 mg PO BID budesonide-formoterol [Breyna] 160-4.5 mcg/actuation HFA aerosol inhaler 2 inh inhalation Q12H Referrals / Follow Up: Jose David Sims MD [Primary Care Provider] - Disposition Disposition (needs filled in before D/C Order can be placed): Against Medical Advice Charges/Coding Visit Charges Inpatient E&M: 71651 Disch Hosp >30min
== END 2024-12-10 11:20 | disposition left against medical advice (07) | DRG 194 ==
LOC: ED 12-09 00:59 → PCU 12-09 01:26
PROVIDERS: Physician Assistant; Admitting Provider Internal Medicine; Emergency Provider Emergency Medicine; PCP Family Medicine; Visit Provider Student in an Organized Health Care Education/Training Program
DX: J18.9 Pneumonia, unspecified organism (principal); J44.1 Chronic obstructive pulmonary disease with (acute) exacerbation; N17.9 Acute kidney failure, unspecified; Z68.42 Body mass index [BMI] 45.0-49.9, adult; J44.0 Chronic obstructive pulmonary disease with (acute) lower respiratory infection; Z66 Do not resuscitate; I10 Essential (primary) hypertension; F32.A Depression, unspecified; I48.0 Paroxysmal atrial fibrillation; F41.9 Anxiety disorder, unspecified; E66.01 Morbid (severe) obesity due to excess calories; F17.210 Nicotine dependence, cigarettes, uncomplicated; D75.1 Secondary polycythemia; F17.290 Nicotine dependence, other tobacco product, uncomplicated; F43.12 Post-traumatic stress disorder, chronic; E66.813 Obesity, class 3; R45.1 Restlessness and agitation; R79.89 Other specified abnormal findings of blood chemistry; Z79.01 Long term (current) use of anticoagulants; Z79.899 Other long term (current) drug therapy
CPT/HCPCS: 36415; 36600; 71046; 71250; 80048; 80053; 81001; 82803; 83605; 83735; 84100; 84145; 84443; 84484; 85025; 87070; 87086; 87205; 87426; 87633; 93005; 93306; 94640; 94668; 97802; 99252; 99285; Q9957; A4216; C8929; G0463; J2405

== ENCOUNTER 2025-01-17 09:30 | Inpatient (IN) | payer MEDICARE, SELFPAY ==
[2025-01-17] VITALS (25 sets, daily range): BP systolic 120–180; BP diastolic 57–157; PULSE 92–159; RESP 17–30; TEMP 36.4–37.3; O2SAT 93–98; BMI 48.9; BMI 47.9
--- NOTE | 2025-01-17 09:48 | EKG12_ITS ---
Test Reason : REPEAT Blood Pressure : */* mmHG Vent. Rate : 156 BPM Atrial Rate : * BPM P-R Int : * ms QRS Dur : 124 ms QT Int : 292 ms P-R-T Axes : * -22 -30 degrees QTcB Int : 470 ms Critical Test Result: High HR afib with rvr Right bundle branch block Inferior infarct , age undetermined Abnormal ECG Confirmed by JAYE MAGANA, PEGGY ([id number]), publishing editor BUFFY BEARD ([id number]) on 01/19/2025 1:16:17 PM Referred By: Confirmed By: PEGGY CEE MD
[2025-01-17] MEDS: Lorazepam 2 MG/ML WCH Syringe 1 MG IV ×2 (10:00→13:15)
--- NOTE | 2025-01-17 10:02 | ED.VIS.DYS ---
HPI History of Present Illness Chief Complaint: Shortness of Breath Narrative Narrative: Chief complaint and HPI: Shortness of breath and tachycardia. 64-year-old male with past medical history of proximal atrial fibrillation noncompliant with anticoagulation, heavy tobacco abuse, COPD on chronic BiPAP and 2 L oxygen, HTN who is noncompliant with medication presents for evaluation of shortness of breath and tachycardia. History taken by patient as well as medical record. Patient states he has a home monitor at home and realized that his heart rate was high. States that he is chronically short of breath. States that he does not regularly take his Eliquis but did take a dose this morning. States that he is currently having a panic attack secondary to the above. Patient states he has a history of PTSD when it comes to hospitals, he states that he has issues trusting doctors which is why he does not take his daily medication. Patient states at baseline he is bed ridden on BiPAP. He states he has not had a sleep study in years, greater than 5 years and he states his settings are 17/5. Review of systems: See HPI Medications: As listed on the chart Allergies: As listed on the chart PFSH: Per chart - Vital signs: As listed on the chart. Reviewed. Physical exam: Gen: A&O x3, NAD Head: Normocephalic, atraumatic Eyes: No sclera icterus, conjunctiva clear ENT: Moist mucous membranes Neck: Trachea midline, No JVD CV: Irregular rhythm, tachycardic, no murmurs, no peripheral edema Resp: Lungs diminished in the bilateral bases, few expiratory wheezing, difficult to auscultate secondary to body habitus GI: Large body habitus, abd soft, non-distended, non-tender, no r/r/g Musc: Full ROM, no deformity Skin: Warm, dry Neuro: Alert, oriented, grossly intact, sensation intact Psych: Cooperative, appropriate mood and affect [facility] Medical History PTSD (post-traumatic stress disorder) Foraminal stenosis of lumbosacral region ZAN (obstructive sleep apnea) Back pain Anxiety COPD (chronic obstructive pulmonary disease) Radiculitis of leg Lumbar canal stenosis Foraminal stenosis of lumbosacral region Back pain Anxiety COPD (chronic obstructive pulmonary disease) Obstructive sleep apnea Home Medications ?Medication ?Instructions ?Recorded ?Last Taken ?Type albuterol sulfate 1.25 mg/3 mL 1.25 mg inhalation Q4H PRN PRN 12/08/24 Unknown History solution for nebulization dyspnea budesonide-formoterol HFA 160 2 inh inhalation Q12H 12/08/24 Unknown History mcg-4.5 mcg/actuation aerosol inhaler (Breyna) magnesium oxide 400 mg (241.3 mg 400 mg PO BID 12/08/24 Unknown History magnesium) tablet fluconazole 150 mg tablet 150 mg PO QWEEK 01/17/25 Unknown History ketoconazole 2 % topical cream 1 applic topical BID 01/17/25 Unknown History Allergy/AdvReac Type Severity Reaction Status Date / Time codeine Allergy Hives Verified 12/08/24 21:09 Iodinated Contrast Media Allergy Hives Verified 12/08/24 21:09 (Iodinated Contrast Media - IV Dye) diclofenac AdvReac Swelling Verified 12/08/24 21:09 metaxalone AdvReac Swelling Verified 12/08/24 21:09 methylphenidate (From AdvReac hallucinati Verified 12/08/24 21:09 Ritalin) ons Phenylpiperazine AdvReac Other Verified 12/08/24 21:09 Antidepressant Tetracyclic Antidepressants AdvReac Other Verified 12/08/24 21:09 Tricyclic Antidepressants AdvReac Other Verified 12/08/24 21:09 and Tricy Family History Other Diabetes Hypertension Surgical History S/P epidural steroid injection Social History household members: family Smoking Status: Current every day smoker tobacco type: cigarettes and e-cigarettes alcohol intake: never substance use type: does not use EXAM Physical Exam Const Vital Signs: 01/17/25 09:31 01/17/25 09:39 01/17/25 09:54 Temperature 97.5 F L Temperature Source Temporal Pulse Rate 128 H Respiratory Rate 30 H Respiratory Effort Short of Breath Respiratory Depth Shallow Respiratory Pattern Tachypnea Blood Pressure 145/95 H Blood Pressure Mean 111 Blood Pressure Source Pulse Ox 96 Oxygen Delivery Method Nasal Cannula Nasal Cannula Room Air Oxygen Flow Rate (L/min) 2 2 01/17/25 10:30 01/17/25 11:15 01/17/25 11:45 Temperature Temperature Source Pulse Rate 155 H 159 H Respiratory Rate 26 H 26 H Respiratory Effort Respiratory Depth Respiratory Pattern Irregular Blood Pressure 146/111 H Blood Pressure Mean 122 Blood Pressure Source Pulse Ox 98 98 Oxygen Delivery Method Bi-pap Bi-pap Oxygen Flow Rate (L/min) 2 01/17/25 11:58 01/17/25 12:08 01/17/25 12:25 Temperature 97.8 F Temperature Source Oral Pulse Rate 152 H 152 H 155 H Respiratory Rate 22 H 28 H 22 H Respiratory Effort Respiratory Depth Respiratory Pattern Blood Pressure 129/84 H 129/98 H 120/88 H Blood Pressure Mean 99 108 98 Blood Pressure Source Monitor Pulse Ox 96 95 97 Oxygen Delivery Method Room Air Bi-pap Bi-pap Oxygen Flow Rate (L/min) 01/17/25 13:00 01/17/25 13:13 Temperature 97.8 F Temperature Source Oral Pulse Rate 120 H 126 H Respiratory Rate 19 H 23 H Respiratory Effort Respiratory Depth Respiratory Pattern Blood Pressure 147/77 H 147/77 H Blood Pressure Mean 100 100 Blood Pressure Source Monitor Pulse Ox 97 96 Oxygen Delivery Method Bi-pap Bi-pap Oxygen Flow Rate (L/min) MDM MDM MDM Narrative Medical decision making narrative: 64-year-old male with past medical history of proximal atrial fibrillation noncompliant with anticoagulation, heavy tobacco abuse, COPD on chronic BiPAP and 2 L oxygen, HTN who is noncompliant with medication presents for evaluation of shortness of breath and tachycardia. History taken by patient as well as medical record. Patient is noncompliant with medications as he states that he has issues trusting hospitals and physicians. States he feels like he is currently having a panic attack. States at baseline he is bed ridden which he placed himself on a year ago. He states he is on BiPAP settings 11/11 constantly with 2 L of oxygen. States he has not had a sleep study in greater than 5 years. On presentation, patient is tachycardic, tachypneic on his 2 L nasal cannula. Not hypoxic. Patient states that he needs to be placed back on his home BiPAP as this will help with his breathing. He brought the BiPAP machine with him. He was placed back on his 11/11. Patient states that he does not take any medication for his atrial fibrillation. States he is supposed to be taking daily Eliquis which he does not follow. States he did take a dose this morning due to his fast heart rate. Differential diagnosis includes but is not limited to atrial fibrillation with RVR, panic attack, COPD exacerbation, pneumonia, CHF, PE. Will plan on albuterol given his heart rate, will give Atrovent. Solu-Medrol, diltiazem bolus, Ativan ordered for symptoms. Respiratory workup ordered including CTA chest. On chart review, patient presented to emergency department in November for the same symptoms. He was ultimately admitted and discharged on 12/10. He was admitted for hypoxia due to community-acquired pneumonia and COPD exacerbation. Atrial fibrillation with RVR. Patient had a normal TSH at that time. VBG without hypercapnia or acidosis. Patient's pH is 7.469 and his pCO2 is 23.Repeat repeat EKG was personally reviewed interpreted by me, ED physician. EKG shows a wide QRS tachycardia still with right bundle branch block. Heart rate 156. Will give adenosine to assess underlying rhythm. 6 mg of adenosine was given without any effect. 12 mg adenosine was given and underlying rhythm was found to be atrial fibrillation with PVCs. Patient's heart rate did increase back to the 150s. Another IV diltiazem bolus ordered and patient placed on diltiazem drip. Patient has allergy to contrast therefore Benadryl ordered. He states despite premedication he still develops a rash. He would like to forego the CT chest if possible. Therefore instead we will start with chest x-ray and D-dimer. CBC with mild leukocytosis of 12.8. Patient has hemoconcentration of 18. History of this on previous labs. Magnesium unremarkable. BMP shows baseline renal insufficiency. Troponin unremarkable. BNP unremarkable. D-dimer 0.61 however this is negative for age adjustment. Chest x-ray was personally viewed interpreted by me, ED physician. No pneumonia, effusion, pneumothorax, Cardiomegaly. Radiology in agreement, states atelectasis scar at the right lung base. On reevaluation, patient is still in A-fib RVR on diltiazem drip however his rate has improved to the 120s. He will warrant admission. I spoke with the hospitalist service who accepted admission. They will determine anticoagulation if to continue Eliquis or start on heparin. EKG: Interpreted by me/EM physician: EKG shows normal QRS tachycardia with PVCs. Right bundle branch block. Underlying rhythm difficult to discern given rate of 161. Repeat EKG shows atrial fibrillation with PVCs. Right bundle branch block. Heart rate 68. This was one with adenosine. 35 minutes of critical care time utilized in managing the patient. This is due to high probability of and deterioration of the patient based on the patient's condition and excludes any separately billable procedures. Impression: 1. Atrial fibrillation with RVR 2. History of proximal atrial fibrillation, noncompliant with cardiac medications and anticoagulation 3. COPD with mild exacerbation Lab Data Labs: Laboratory Results - last 24 hr 01/17/25 01/17/25 09:44 09:49 WBC 12.8 H RBC 6.11 Hgb 18.0 H* Hct 53.6 MCV 87.7 MCH 29.5 MCHC 33.6 RDW Std Deviation 47.1 H RDW Coeff of Penelope 14.9 H Plt Count 248 MPV 9.4 Immature Gran % (Auto) 0.500 Neut % (Auto) 64.5 Lymph % (Auto) 25.4 [place] % (Auto) 7.7 Eos % (Auto) 1.1 Baso % (Auto) 0.8 Absolute Neuts (auto) 8.3 H Absolute Lymphs (auto) 3.25 Nucleated RBC % 0 D-Dimer Quant (PE/DVT) 0.61 H* Sodium 138 Potassium 4.3 Chloride 101 Carbon Dioxide 16.2 L Anion Gap 21 H BUN 16 Creatinine 1.27 H Estim Creat Clear Calc 94.47 Est GFR (MDRD) Non-Af 63 BUN/Creatinine Ratio 12.7 Glucose 162 H Calcium 9.6 Magnesium 2.1 Troponin T High Sens 18 D NT pro BNP II 782 ABG Data ABG results: ABG 01/17/25 10:12 Specimen Type MATHEW Sample Site Not entered O2 % 2.0 VBG pH 7.47 H VBG pO2 48 H VBG HCO3 22 VBG Total CO2 23 VBG O2 Sat (Calc) 87 H VBG Base Excess -1 POC Mix VBG pCO2 Pt Tmp 30.6 L O2 Delivery Device Not entered Radiography Diagnostic Testing: Clinical Impression(s) from Imaging Studies Chest X-Ray 01/17/25 12:12 IMPRESSION: There is atelectasis scar at the right lung base, similar to the prior. Reading Location: [facility] Discharge Plan Triage Chief Complaint: Shortness of Breath ED Provider: Jose Vallejo Dx/Rx/DC Orders Prescriptions: No Action albuterol sulfate 1.25 mg/3 mL solution for nebulization 1.25 mg inhalation Q4H PRN PRN (Reason: dyspnea) magnesium oxide 400 mg (241.3 mg magnesium) tablet 400 mg PO BID budesonide-formoterol [Breyna] 160-4.5 mcg/actuation HFA aerosol inhaler 2 inh inhalation Q12H fluconazole 150 mg tablet 150 mg PO QWEEK ketoconazole 2 % cream 1 applic topical BID Primary Care Provider: Jose David Sims Referrals: Jose David Sims MD [Primary Care Provider] - Print Language: Slovak
[2025-01-17 10:15] LABS: FI02 2.0; SITE Not entered; VBG BASE EXCESS -1 mmol/L (-1.0-3.5); VBG PO2 48 mmHg (25-40); VBG SO2 87 % (50-70); VBG TCO2 23 mmol/L (23-33)
[2025-01-17 10:28] LABS: Hematocrit 53.6 % (40-54); Hemoglobin 18.0 g/dL (13.0-16.5); Immature Granulocytes Count 0.060 X10^3/uL (0.0-0.0); Mean Corp Hgb Conc 33.6 g/dL (32-36); Mean Corpuscular Volume 87.7 fL (80-94); Mean Platelet Vol. 9.4 fl (6.2-12.0); NRBC Flagged by Analyzer 0 % (0-5); Platelet Count 248 K/mm3 (150-450); RBC Distribution Width CV 14.9 % (11.6-14.6); RBC Distribution Width SD 47.1 fl (35.1-43.9); Red Blood Count 6.11 M/mm3 (4.6-6.2); White Blood Count 12.8 K/mm3 (4.4-11.0)
[2025-01-17 11:05] LABS: Troponin T High Sensitivity 18 ng/L (<=22)
[2025-01-17 11:09] LABS: Magnesium 2.1 mg/dL (1.5-2.2); Pro- Brain NATRIURETIC PEPTIDE 782 pg/mL (<=900)
[2025-01-17] MEDS: Ipratropium 0.5 MG/2.5 ML SOLUTION 1.5 MG INHALATION (11:33)
--- NOTE | 2025-01-17 11:45 | CPS ---
Pt is on home unit at this time. PT is admit that he liked his unit better than mine and did not want my V60
[2025-01-17] MEDS: 0.9% Normal Saline (500mL Bag) 500 ML 999 ML IV (11:59)
[2025-01-17] MEDS: Adenosine 6 MG/2 ML Syringe IV (12:11)
[2025-01-17] MEDS: Adenosine 6 MG/2 ML Syringe 12 MG IV (12:11)
--- NOTE | 2025-01-17 12:12 | RAD_ITS ---
PROCEDURE: CHEST 1 VIEW 01/17/2025 REASON FOR EXAM: SHORTNESS OF BREATH TECHNIQUE: Frontal view of the chest. COMPARISON: December 08, 2024 FINDINGS: Heart size is upper normal. Central vascularity appears within normal limits. There is atelectasis scar at the right lung base, similar to the prior. There is no pneumothorax. There is no definite effusion. There is no acute bony abnormality. There is no visible atherosclerosis. RAD/Chest 1 View IMPRESSION: There is atelectasis scar at the right lung base, similar to the prior. Reading Location: [facility]
[2025-01-17] MEDS: Diltiazem 125 MG in Dextrose 5%-Water (100mL Bag) 100 ML IV (12:25)
[2025-01-17 12:45] LABS: D-Dimer Quantitative (DVT/PE) 0.61 FEU/ug/m (0.27-0.49)
[2025-01-17 12:54] LABS: Anion Gap 21 (5-15); BUN 16 mg/dL (4-19); BUN/Creat Ratio 12.7 RATIO (10-20); Calcium,Total 9.6 mg/dL (7.6-11.0); Carbon Dioxide 16.2 mmol/L (21.0-32.0); Chloride 101 mmol/L (98-108); Estimated Creatinine Clearance 94.47 ml/min (50-250); Glucose 162 mg/dL (70-99); Potassium 4.3 mmol/L (3.3-5.1)
--- NOTE | 2025-01-17 13:05 | EKG12_ITS ---
Test Reason : SOB Blood Pressure : */* mmHG Vent. Rate : 161 BPM Atrial Rate : * BPM P-R Int : * ms QRS Dur : 122 ms QT Int : 296 ms P-R-T Axes : * -39 59 degrees QTcB Int : 484 ms Critical Test Result: High HR afib with RVR Left axis deviation Right bundle branch block Abnormal ECG Confirmed by JAYE MAGANA, PEGGY ([id number]), online content editor BUFFY BEARD ([id number]) on 01/19/2025 1:15:56 PM Referred By: GHAZAL/MERLY Confirmed By: PEGGY CEE MD
--- NOTE | 2025-01-17 13:05 | EKG12_ITS ---
Test Reason : REPEAT AGAIN Blood Pressure : */* mmHG Vent. Rate : 68 BPM Atrial Rate : * BPM P-R Int : * ms QRS Dur : 122 ms QT Int : 496 ms P-R-T Axes : * -17 217 degrees QTcB Int : 527 ms Atrial fibrillation with premature ventricular or aberrantly conducted complexes Right bundle branch block Abnormal ECG Confirmed by JAYE MAGANA, PEGGY ([id number]), assignment editor BUFFY BEARD ([id number]) on 01/19/2025 1:16:36 PM Referred By: GHAZAL Confirmed By: PEGGY CEE MD
[2025-01-17 13:58] LABS: Troponin T High Sens 2 HR 22 ng/L (<=22)
--- NOTE | 2025-01-17 14:00 | PCM.HP.STD ---
HPI - General General Date of Admission: 01/17/25 Date of Service: 01/17/25 Chief Complaint: Tachycardia and panic attack HPI Narrative MARCEL TURCIOS, is a 64-year-old male history of ZAN, COPD, paroxysmal atrial fibrillation noncompliant with anticoagulation, tobacco use who presented to [facility] ED 01/17/2025 with shortness of breath and tachycardia. Patient has monitor at home and realized his heart rate was high so he took his Eliquis (which she does not take regularly) and came in for evaluation. He is chronically short of breath but felt he was having a panic attack secondary to the above. Reportedly patient has history of PTSD when it comes to hospitals and that he does not trust doctors which is why he is noncompliant with his medications. At baseline patient on BiPAP and 2 L of O2 with settings 17/5. In the ED temp 97.5, heart rate 128, blood pressure 145/95 patient with respiratory rate of 31 he was on 2 L nasal cannula saturating 96%, he was placed on his home BiPAP and maintained saturations with improvement respiratory rate. VBG showed pH 7.48 with a total CO2 of 23 and bicarb of 22. CBC with white blood cell count 12.8 and hemoglobin of 18. Troponin of 18 with a repeat []. proBNP 782 and D-dimer 0.61. BMP with a bicarb of 16.2 and a gap of 21, BUN 16 and creatinine 1.27 which seems to be about baseline. EKG showed a wide QRS tachycardia with right bundle branch block and a rate of 156, adenosine given to assess underlying rhythm, 6 mg given without any effect and 12 mg given which revealed A-fib with PVCs and heart rate subsequently increased back to 150. Patient given another dose of IV diltiazem and placed on a drip. Patient has a contrast allergy so chest x-ray and D-dimer obtained as patient still develops rash despite premedication and would ideally would like to avoid CT. D-dimer 0.61 but technically normal when corrected for age and chest x-ray redemonstrated atelectasis. Given patient remained in A-fib with RVR he was given diltiazem bolus and placed on a diltiazem drip and hospitalist contacted for admission. Patient evaluated bedside. He reports he was at [facility] yesterday for the rapid heart rate and anxiety but they wanted to transfer him to [place] to see cardiology and he did not want to so he left [facility]. This morning he woke up having a panic attack and tachycardic prompting him to come in. Reports that his cough is at baseline and shortness of breath is at baseline, no chest pain. Reports he got an antifungal medicine 4 days ago for some fungal infection in his armpit and since then he has had watery bowel movements and some general discomfort in his abdomen and has not been eating well over the past 4 days has had some nausea. He said he is very sensitive to medicine and this all started after he took that medicine, this is not what he is presenting for however. Denies any fevers or chills but does note some sweats. Endorses using the BiPAP at all times and when he has to get up to go to the bathroom he gets very short of breath as he has to take it off and he will get dizzy but does not feel that way when he is laying down [facility] Medical History (Updated 01/17/25 @ 14:[address] Jaimie Okeefe MD) Acute respiratory failure with hypoxia TAINA (acute kidney injury) Anxiety Anxiety Atrial fibrillation with rapid ventricular response Back pain Back pain COPD (chronic obstructive pulmonary disease) COPD (chronic obstructive pulmonary disease) COPD exacerbation Dyspnea Elevated troponin Erythrocytosis Foraminal stenosis of lumbosacral region Foraminal stenosis of lumbosacral region High anion gap metabolic acidosis Hypoxia Lumbar canal stenosis Obstructive sleep apnea ZAN (obstructive sleep apnea) Pneumonia PTSD (post-traumatic stress disorder) Radiculitis of leg Home Medications ?Medication ?Instructions ?Recorded ?Last Taken ?Type albuterol sulfate 1.25 mg/3 mL 1.25 mg inhalation Q4H PRN PRN 12/08/24 Unknown History solution for nebulization dyspnea budesonide-formoterol HFA 160 2 inh inhalation Q12H 12/08/24 Unknown History mcg-4.5 mcg/actuation aerosol inhaler (Breyna) magnesium oxide 400 mg (241.3 mg 400 mg PO BID 12/08/24 Unknown History magnesium) tablet fluconazole 150 mg tablet 150 mg PO QWEEK 01/17/25 Unknown History ketoconazole 2 % topical cream 1 applic topical BID 01/17/25 Unknown History Allergy/AdvReac Type Severity Reaction Status Date / Time codeine Allergy Hives Verified 12/08/24 21:09 Iodinated Contrast Media Allergy Hives Verified 12/08/24 21:09 (Iodinated Contrast Media - IV Dye) diclofenac AdvReac Swelling Verified 12/08/24 21:09 metaxalone AdvReac Swelling Verified 12/08/24 21:09 methylphenidate (From AdvReac hallucinati Verified 12/08/24 21:09 Ritalin) ons Phenylpiperazine AdvReac Other Verified 12/08/24 21:09 Antidepressant Tetracyclic Antidepressants AdvReac Other Verified 12/08/24 21:09 Tricyclic Antidepressants AdvReac Other Verified 12/08/24 21:09 and Tricy Family History Other Diabetes Hypertension Surgical History S/P epidural steroid injection Social History household members: family Smoking Status: Current every day smoker tobacco type: cigarettes and e-cigarettes alcohol intake: never substance use type: does not use ROS ROS Narrative General: Has had some occasional sweats overnight HENT: Denies headache, denies stuffy nose, has a little bit of a deep sore throat EYES: Denies changes in vision Resp: Chronic cough and chronic shortness of breath Cardiac: Denies chest pain GI: Generalized abdominal discomfort with liquid stool, nausea : Difficulty emptying bladder, bladder leaking Extremity: Denies swelling MSK: Denies weakness Neuro: Denies any numbness/tingling Heme: Denies any bleeding or bruising Skin: Denies rashes Psychiatric: Reports feeling very anxious Vital Signs Vital Signs Vital Signs: 01/17/25 09:31 01/17/25 09:39 01/17/25 09:54 Temperature 97.5 F L Temperature Source Temporal Pulse Rate 128 H Respiratory Rate 30 H Respiratory Effort Short of Breath Respiratory Depth Shallow Respiratory Pattern Tachypnea Blood Pressure 145/95 H Blood Pressure Mean 111 Blood Pressure Source Pulse Ox 96 Oxygen Delivery Method Nasal Cannula Nasal Cannula Room Air Oxygen Flow Rate (L/min) 2 2 01/17/25 10:30 01/17/25 11:15 01/17/25 11:45 Temperature Temperature Source Pulse Rate 155 H 159 H Respiratory Rate 26 H 26 H Respiratory Effort Respiratory Depth Respiratory Pattern Irregular Blood Pressure 146/111 H Blood Pressure Mean 122 Blood Pressure Source Pulse Ox 98 98 Oxygen Delivery Method Bi-pap Bi-pap Oxygen Flow Rate (L/min) 2 01/17/25 11:58 01/17/25 12:08 01/17/25 12:25 Temperature 97.8 F Temperature Source Oral Pulse Rate 152 H 152 H 155 H Respiratory Rate 22 H 28 H 22 H Respiratory Effort Respiratory Depth Respiratory Pattern Blood Pressure 129/84 H 129/98 H 120/88 H Blood Pressure Mean 99 108 98 Blood Pressure Source Monitor Pulse Ox 96 95 97 Oxygen Delivery Method Room Air Bi-pap Bi-pap Oxygen Flow Rate (L/min) 01/17/25 13:00 01/17/25 13:13 Temperature 97.8 F Temperature Source Oral Pulse Rate 120 H 126 H Respiratory Rate 19 H 23 H Respiratory Effort Respiratory Depth Respiratory Pattern Blood Pressure 147/77 H 147/77 H Blood Pressure Mean 100 100 Blood Pressure Source Monitor Pulse Ox 97 96 Oxygen Delivery Method Bi-pap Bi-pap Oxygen Flow Rate (L/min) Weight Weight: 168.101 kg Body Mass Index (BMI) 48.9 Physical Exam Narrative General: Alert, oriented, no apparent distress HEENT: Atraumatic, normocephalic Eyes: Anicteric, normal conjunctiva, extraocular movements grossly intact Neck: Supple Respiratory: Some scattered wheezes, slight increased respiratory effort Cardiovascular: Tachycardic 120s to 150s GI: Soft, little bit tender diffusely without rebound, guarding, rigidity Extremities: No edema Musculoskeletal: Moving all extremities Neuro: No overt focal neurological deficits Skin: No rashes appreciated Psych: Cooperative Results Lab / Micro Data 01/17/25 09:44 01/17/25 09:44 Labs: Laboratory Results - last 24 hr 01/17/25 09:44: WBC 12.8 H, RBC 6.11, Hgb 18.0 H*, Hct 53.6, MCV 87.7, MCH 29.5, MCHC 33.6, RDW Std Deviation 47.1 H, RDW Coeff of Penelope 14.9 H, Plt Count 248, MPV 9.4, Immature Gran % (Auto) 0.500, Neut % (Auto) 64.5, Lymph % (Auto) 25.4, [place] % (Auto) 7.7, Eos % (Auto) 1.1, Baso % (Auto) 0.8, Absolute Neuts (auto) 8.3 H, Absolute Lymphs (auto) 3.25, Nucleated RBC % 0, Sodium 138, Potassium 4.3, Chloride 101, Carbon Dioxide 16.2 L, Anion Gap 21 H, BUN 16, Creatinine 1.27 H, Estim Creat Clear Calc 94.47, Est GFR (MDRD) Non-Af 63, BUN/Creatinine Ratio 12.7, Glucose 162 H, Calcium 9.6, Magnesium 2.1, Troponin T High Sens 18 D, NT pro BNP II 782 01/17/25 09:49: D-Dimer Quant (PE/DVT) 0.61 H* 01/17/25 12:40: Troponin T Hi Sens 2 Hr 22 ABG Data ABG results: ABG 01/17/25 10:12 Specimen Type MATHEW Sample Site Not entered O2 % 2.0 VBG pH 7.47 H VBG pO2 48 H VBG HCO3 22 VBG Total CO2 23 VBG O2 Sat (Calc) 87 H VBG Base Excess -1 POC Mix VBG pCO2 Pt Tmp 30.6 L O2 Delivery Device Not entered Imaging Radiology Impression Chest X-Ray 01/17/25 12:12 IMPRESSION: There is atelectasis scar at the right lung base, similar to the prior. Reading Location: [facility] Assessment & Plan Assessment/Plan (1) Atrial fibrillation with rapid ventricular response: PLAN: Plan #Afib w/ RVR -Admit to telemetry -Initial rate in ED: 128 -EKG: Rate of 156 with wide QRS tachycardia with right bundle branch block, slow down with adenosine and shown to be A-fib with PVCs -Rate control: Diltiazem drip -AC: Restart home Eliquis -Echocardiogram: Recently completed 12/09/2024 with EF of 55% but difficult to visualize other components due to body habitus -TSH: Recently within normal limits -D-dimer normal when adjusted for age, do not think patient needs CTA -Will check respiratory panel to assess for any other contributing factors -Patient just started on diltiazem drip, heart rate still 120s to 150s, may need to consider digoxin load if not improving or amiodarone, blood pressure stable # Diarrhea/nausea/abdominal discomfort -Patient reports this started 4 days ago after taking an antifungal medicine and he has not taken any more -Gentle IV fluids -KUB -Somewhat diffusely mildly tender without rebound, guarding, rigidity or any peritoneal signs that would necessitate acute advanced imaging at this time -Stool studies -Respiratory panel -I's and O's -Supportive care # Difficulty urinating -Reports some urinary hesitancy and urgency as he will dribble on his way to the bathroom -Will check UA -Will check postvoid # Chronic hypoxic respiratory failure secondary to ZAN and COPD -Patient chronically wears his BiPAP at 17/5 at home and 2 L of O2 per his report -Patient's hemoglobin still elevated 18 and he is back in A-fib RVR, suspect that he needs outpatient sleep study for titration of BiPAP settings as this is likely not his optimal settings -Will have patient on ipratropium nebs while awaiting improvement in heart rate before adding albuterol if possible and budesonide inhaled #Morbid obesity -BMI documented as 48.9 kg/m? at time of admission -Complicates treatment, prognosis, outcomes -Recommend weight loss and lifestyle changes #Tobacco use -Advise cessation -Nicotine replacement available if desired, patient presently does not want any -Counseled extensively on risks of smoking with his oxygen # Panic attacks and anxiety -Patient has received Ativan as needed in the ED, ultimately may benefit from following up with psychiatry on an outpatient basis for either therapy or starting on medications #DVT ppx: Patient be placed back on his home Rodolfo Okeefe MD Charges/Coding Visit Charges Inpatient E&M: 30527 Init Hosp L2
--- NOTE | 2025-01-17 15:20 | RAD_ITS ---
PROCEDURE: ABDOMEN SINGLE VIEW (PORTABLE) 01/17/2025 REASON FOR EXAM: NAUSEA, ABD PAIN TECHNIQUE: ABDOMEN SINGLE VIEW (PORTABLE) COMPARISON: Same day chest radiograph, CT abdomen pelvis 03/02/2019. FINDINGS: Hardware: Surgical anchors within the lower pelvis. Bowel gas: Upper limits of normal in caliber small bowel loops, measuring up to 2.9 cm. The large bowel loops are normal in caliber. Bones: There are degenerative changes of the spine. Other: Chronic rib fracture deformities. RAD/Abdomen Single View (Portable) IMPRESSION: Diffuse small bowel distention. No overt obstruction. Reading Location: [id number]
[2025-01-17] MEDS: 0.9% Normal Saline (1000mL) 1,000 ML 50 ML IV (15:43)
[2025-01-17 16:49] LABS: Mucous, Urine 0 SEEN /hpf (<or=2+)
[2025-01-17 16:57] LABS: Color, Urine Yellow (Yellow); Glucose, Dipstick Normal (Normal); Leukocyte Esterase-Dipstick Negative /ul (Negative); Nitrite-Dipstick Negative (Negative); Occult Blood-Urine 150 /ul (Negative); Protein-Dipstick 30 mg/dl (Negative); Specific Gravity, Urine 1.020 (1.002-1.030); Urine Bilirubin Dipstick Negative (Negative)
[2025-01-17 17:07] LABS: Ketone-Dipstick 150 mg/dl (Negative)
[2025-01-17 17:13] LABS: Troponin T High Sens 4 HR 17 ng/L (<=22)
--- NOTE | 2025-01-17 17:54 | CPS ---
patient is refusing any nasal swab incuding covid and respiratory panel
--- NOTE | 2025-01-17 18:35 | CT_ITS ---
EXAM: CT Abdomen and Pelvis Without Intravenous Contrast CLINICAL INDICATION: SMALL BOWEL DILATIONW/ KUB, ABD PAIN, NAUSEA, DIAR TECHNIQUE: Axial computed tomography images of the abdomen and pelvis without intravenous contrast. This CT exam was performed using one or more of the following dose reduction techniques: automated exposure control, adjustment of the mA and/or kV according to patient size, and/or use of iterative reconstruction technique. COMPARISON: No relevant prior studies available. FINDINGS: LUNG BASES: Unremarkable. No mass. No consolidation. ABDOMEN: LIVER: Hepatomegaly with fatty infiltration. GALLBLADDER AND BILE DUCTS: Distended gallbladder without significant surrounding fat stranding to suggest acute inflammation. If indicated, this can be further evaluated with ultrasound. No calcified stones. No ductal dilation. PANCREAS: Unremarkable. No ductal dilation. SPLEEN: Unremarkable. No splenomegaly. ADRENALS: Unremarkable. No mass. KIDNEYS AND URETERS: Unremarkable. No obstructing stones. No hydronephrosis. STOMACH AND BOWEL: Colonic diverticulosis without acute diverticulitis. No obstruction. PELVIS: APPENDIX: No findings to suggest acute appendicitis. BLADDER: Unremarkable. No stones. REPRODUCTIVE: Unremarkable as visualized. ABDOMEN and PELVIS: INTRAPERITONEAL SPACE: Unremarkable. No free air. No significant fluid collection. BONES/JOINTS: No acute fracture. No dislocation. SOFT TISSUES: Bilateral inguinal hernias containing fat. VASCULATURE: Unremarkable. No abdominal aortic aneurysm. LYMPH NODES: Unremarkable. No enlarged lymph nodes. CT/Abdomen/Pelvis without Cont IMPRESSION: 1. Hepatomegaly with fatty infiltration. 2. Distended gallbladder without significant surrounding fat stranding to sugg est acute inflammation. If indicated, this can be further evaluated with ultrasound. 3. Bilateral inguinal hernias containing fat. 4. Colonic diverticulosis without acute diverticulitis. Reading Location: [id number]
[2025-01-17 19:29] LABS: Squamous Epithelial Cells - UA 0-5 SEEN /hpf (0-5)
[2025-01-17 19:30] LABS: Red Blood Cells-Urine 5-10 SEEN /hpf (0-5)
[2025-01-17] MEDS: Budesonide Respules 0.5 MG/2 ML AMPUL.NEB. INHALATION (19:45)
[2025-01-17] MEDS: Ipratropium 0.5 MG/2.5 ML SOLUTION INHALATION (19:45)
--- OUTSIDE RECORDS SUMMARY | 2025-01-17 20:03 | XMS RPT_ITS | CCD ---
Author Organization [facility] Care Team Providers Care Oil Expert Name Role Phone KENA, CECILIA T Unavailable Unavailable KENA, CECILIA T Unavailable Unavailable KENA, CECILIA T Unavailable Unavailable KENA, CECILIA T Unavailable Unavailable Care Physician, No Primary Primary Care Provider Unavailable Dr. Clark Lerma Attending Provider Dr. Bertram Yi Emergency Provider Dr. Rod Castellanos Admit Provider [phone] Rod Castellanos Other Provider [phone] Clark Lerma Other Provider Dr. Jose David Majano Other Provider Dr. Jose David Majano Attending Provider Dr. Jose David Sims MD Primary Care Provider Dr. Jose David Sims MD Attending Provider [phone] Jose David Sims MD Referring Provider [phone] Shelbie Guaman DO Emergency Provider [phone] Delvis MAGANA, Dr. Mis Caratgena Admit Provider [phone] Delvis MAGANA, Dr. Mis Cartagena Attending Provider Delvis MAGANA, Dr. Mis Cartagena Referring Provider Rajni MAGANA, Dr. Molina Other Provider Unavailable Dr. Jose David Georges DO Emergency Provider Dr. Odilia Burgos DO Admit Provider Dr. Odilia Burgos DO Attending Provider Dr. Odilia Burgos DO Other Provider Dr. Uyen Marino MD Other Provider Rajni MAGANA, Dr. Molina Attending Provider Unavaila Dr. Odilia Hanson DO Attending Provider Delvis MAGANA, Dr. Mis Cartagena Other Provider [phone] Smis, Jose David Primary Care Unavailable Koram, Mis Mitzi Admitting Unavailable Koram, Mis Mitzi Referring Unavailable Koram, Mis Mitzi Attending Unavailable Rajni, Jesse Consulting Unavailable Sims, Jose David Primary Care Unavailable Koram, Mis Mitzi Attending Unavailable Aubrey, Odilia Admitting Unavailable Uyen Marino Consulting Unavailable Aubrey, Odilia Consulting Unavailable Rajni, Jesse Attending Unavailable Sims, Jose David Primary Care Unavailable Sims, Jose David Primary Care Unavailable Aubrey, Odilia Consulting Unavailable Aubrey, Odilia Admitting Unavailable Odilia Burgos Attending Unavailable Sims, Jose David Primary Care Unavailable Koram, Mis Mitzi Admitting Unavailable Koram, Mis Mitzi Referring Unavailable Koram, Mis Mitzi Attending Unavailable Rajni, Jesse Consulting Unavailable Koram, Mis Mitzi Consulting Unavailable Jesse Urban Attending Unavailable Uyen Marino Consulting Unavailable Koram, Mis Mitzi Consulting Unavailable Sims, Jose David Referring Unavailable Sims, Jose David Attending Unavailable Sims, Jose David Primary Care Unavailable PHYSICIAN, NONE Primary Care Physician Unavailab Dr. Jose Sanches DO Emergency Provider Maldonado MAGANA, Dr. Etienne Admit Provider Maldonado MAGANA, Dr. Etienne Attending Provider Allergies Allergy Classification Reported Allergen(s) Allergy Type Date of Onset Reaction(s) Facility (11 sources) codeine; Translations: [CODEINE] Drug Allergy 04-29-20 05 [facility], Hives [facility] Repository (1 source) iodine; Translations: [IODINE] Drug Allergy 04-29-20 05 [facility] Repository (11 sources) methylphenidate; Translations: [METHYLPHENIDATE] Drug Allergy 11-22-19 16 [facility], hallucinations [facility] Repository Comment on above: hallucinations (1 source) TRICYCLIC COMPOUNDS; Translations: [TRICYCLIC COMPOUNDS] Propensity to adverse reactions to drug (disorder) 04-23-20 17 [facility] Other [place] Repository (8 sources) Diclofenac Drug Allergy 09-15-19 24 Swelling [facility] (8 sources) metaxalone Drug Allergy 09-15-19 24 Swelling [facility] (8 sources) traZODone Drug Allergy 09-15-19 Other [facility] Comment on above: catatonic state (8 sources) Triiodobenzoic Acids Allergy to substance 09-15-19 Hives [facility] (8 sources) Tetracyclic Antidepressants Propensity to adverse reactions 09-15-19 Other [facility] Comment on above: catatonic state (8 sources) Tricyclic Antidepressants and Tricy Propensity to adverse reactions 09-15-19 Other [facility] Comment on above: catatonic state (1 source) Diclofenac Drug Allergy 12-09-19 [facility] Repository (1 source) metaxalone Drug Allergy 12-09-19 [facility] Repository (1 source) Iodinated Contrast Media Drug allergy (disorder) 12-09-19 [facility] Repository (1 source) Tricyclic Antidepressants and Tricy Drug allergy (disorder) 12-09-19 25 [facility] Repository (1 source) Tetracyclic Antidepressants Drug allergy (disorder) 12-09-19 [facility] Repository (1 source) Phenylpiperazine Antidepressant Drug allergy (disorder) 12-09-19 [facility] Repository (1 source) Contrast media; Translations: [iodinated radiocontrast agents] Drug allergy [facility] (1 source) Tricyclic Antidepressant; Translations: [tricyclic antidepressants] Drug allergy [facility] Medications Current Medications Medication Drug Class(es) Dates Sig (Normalized) Sig (Original) albuterol 0.417 mg/ml inhalation solution (5 sources) beta2-Adrenergic Agonist Start: 01-16-2025 take 1 dose by inhalation four times daily as needed albuterol 1.25 mg/3 mL (0.042%) inhalation solution Dose : 1.25 mg = 3 mL, Inhalation, QID, PRN as needed Start Date: 01/16/25 Status: Ordered Repeat number: 1 Start: 12-08-2024 take 1.25 mg by inha lation every four hours as needed for dyspnea Albuterol Sulfate 1.25 mg/3 mL solution for nebulization Active 1.25 mg INHALATION EVERY 4 HOURS NEEDED as needed for dyspnea December 08, 2024 12:00am apixaban 5 mg oral tablet (1 source) Factor Xa Inhibitor Start: 01-16-2025 Eliquis 5 mg oral tablet Dose : 5 mg = 1 tab(s), Oral, BID, # 60 tab(s), 0 Refill(s), 159 Start Date: 01/16/25 Status: Ordered Quantity: 60.0 Unit: tab(s) Repeat number: 1 Budesonide-Formotero l (4 sources) Corticosteroid, beta2-Adrenergic Agonist Start: 12-08-2024 Budesonide-Formote rol (Breyna) 160-4.5 mcg/actuation HFA aerosol inhaler Active 2 NMA INHALATION Q12H December 08, 2024 12:00am dilTIAZem hydrochloride 30 mg oral tablet (1 source) Calcium Channel Ortega Start: 01-16-2025 Cardizem 30 mg oral tablet Dose : 30 mg = 1 tab(s), Oral, TID, # 90 tab(s), 0 Refill(s) Start Date: 01/16/25 Status: Ordered Quantity: 90.0 Unit: tab(s) Repeat number: 1 fluconazole 150 mg oral tablet (2 sources) Azole Antifungal Start: 01-16-2025 take 1 tablet by mouth every week Fluconazole 150 mg tablet Active 150 mg PO EVERY WEEK January 17, 2025 12:00am ketoconazole 20 mg/ml topical cream (2 sources) Azole Antifungal Start: 01-17-2025 Ketoconazole 2 % cream Active 1 NMA TOPICAL TWICE A DAY January 17, 2025 12:00am Start: 01-16-2025 ketoconazole 2 % topical cream Apply 1 alexis, Topical, BID, Cream, 159 Start Date: 01/16/25 Status: Ordered Repeat number: 1 magnesium oxide 400 mg oral tablet (5 sources) Start: 12-08-2024 magnesium oxid e 400 mg oral tablet Dose : 400 mg = 1 tab(s), Oral, BID Start Date: 01/16/25 Status: Ordered Repeat number: 1 [place] (Nk) (1 source) Start: 09-15-2023 [place] (Nk) A ctive September 15, 2023 12:00am Completed/Discontinued Medications Medication Drug Class(es) Dates Sig (Normalized) Sig (Original) acetaminophen 325 mg / oxyCODONE hydrochloride 5 mg oral tablet (8 sources) Opioid Agonist Start: 09-08-2019 End: 09-11-2019 Oxycodone-Acetamino phen 1 TABLET tablet Discontinued 1 {tbl} PO EVERY 6 HOURS NEEDED as needed for Pain 12 3 0 September 08, 2019 September 10, 2019 12:00am September 11, 2019 12:08am Back pain Dorsalgia, unspecified Start: 09-08-2019 End: 09-11-2019 take 1 tablet by mouth every six hours as needed Oxycodone-Acetaminophen Discontinued 1 TABLET PO EVERY 6 HOURS NEEDED 12 3 September 08, 2019 September 11, 2019 12:08am 24 hr metoprolol succinate 50 mg extended release oral tablet (7 sources) beta-Adrenergic Ortega Start: 09-16-2023 End: 12-08-2024 take 1 tablet by mouth once daily Metoprolol Succinate 50 mg Tablet Extended Release 24 Hr Discontinued 50 mg PO DAILY 30 0 September 16, 2023 12:00am December 08, 2024 9:34pm naproxen sodium 220 mg oral tablet (8 sources) Nonsteroidal Anti-inflammatory Drug Start: 03-06-2019 End: 03-08-2019 take 1 tablet by mouth twice daily as needed for pain Naproxen Sodium 220 MG tablet Discontinued 220 mg PO TWICE DAILY NEEDED as needed for back pain March 06, 2019 12:00am March 08, 2019 4:36pm oxyCODONE hydrochloride 5 mg oral tablet (16 sources) Opioid Agonist Start: 08-28-2019 End: 08-29-2019 take 1 tablet by mouth every six hours as needed for pain Oxycodone 5 MG tablet Discontinued 5 mg PO EVERY 6 HOURS NEEDED as needed for Pain Score 4-10/10 20 1 0 August 28, 2019 August 28, 2019 1:00am August 29, 2019 1:09am Back pain Dorsalgia, unspecified Start: 07-17-2019 End: 07-22-2019 take 1 tablet by mouth every eight hours as needed for pain Oxycodone 5 MG tablet Discontinued 5 mg PO EVERY 8 HOURS NEEDED as needed for Pain Score 6-10/10 14 5 0 July 17, 2019 July 21, 2019 1:00am July 22, 2019 1:08am Spinal stenosis of lumbar region Back pain Spinal stenosis, lumbar region without neurogenic claudication Dorsalgia, unspecified predniSONE 20 mg oral tablet (8 sources) Start: 05-20-2020 End: 09-15-2023 take 2 [...] food traMADol hydrochloride 50 mg oral tablet (8 sources) Opioid Agonist Start: 03-08-2019 End: 03-18-2019 take 1 tablet by mouth every six hours as needed for pain Tramadol 50 MG tablet Discontinued 50 mg PO EVERY 6 HOURS NEEDED as needed for Pain 28 7 March 08, 2019 12:00am March 14, 2019 12:00am March 18, 2019 12:09am Problems Active Problems Problem Classification Problem Date Documented Da te Episodic/Chronic Abdominal pain (8 sources) Chronic abdominal pain; Translations: [Unspecified abdominal pain] 03-03-2019 Episodic Acute and unspecified renal failure (7 sources) Acute renal failure syndrome; Translations: [Acute kidney failure, unspecified] Onset: 12-18-2024 12-09-2024 Episodic Allergic reactions (8 sources) Allergic reaction; Translations: [Allergy, unspecified, initial encounter] 05-21-2020 Episodic Anxiety disorders (9 sources) Anxiety; Translations: [Anxiety disorder, unspecified] 03-02-2019 Chronic Cardiac dysrhythmias (20 sources) Atrial arrhythmia; Translations: [Unspecified atrial fibrillation] Onset: 12-18-2024 09-15-2023 Chronic Chronic obstructive pulmonary disease and bronchiectasis (20 sources) Chronic obstructive lung disease; Translations: [Chronic obstructive pulmonary disease, unspecified] Onset: 12-13-2024 03-06-2019 Chronic Fluid and electrolyte disorders (6 sources) Metabolic acidosis, increased anion gap (IAG); Translations: [High anion gap metabolic acidosis] 12-09-2024 Episodic Genitourinary symptoms and ill-defined conditions (8 sources) Urinary incontinence; Translations: [Unspecified urinary incontinence] 03-03-2019 Chronic Malaise and fatigue (10 sources) Asthenia; Translations: [Weakness] 09-15-2023 Episodic Mood disorders (1 source) Depressive disorder 12-23-2017 Chronic Nonspecific chest pain (14 sources) Chest pain; Translations: [Chest pain, unspecified] 03-08-2019 Episodic Other hematologic conditions (6 sources) Erythrocytosis; Translations: [Secondary polycythemia] 12-09-2024 Episodic Other hematologic conditions (1 source) Secondary polycythemia; Translations: [Secondary polycythemia] Onset: 12-18-2024 Episodic Other lower respiratory disease (9 sources) Dyspnea; Translations: [Dyspnea, unspecified] 12-08-2024 Episodic Other lower respiratory disease (6 sources) Hypoxia; Translations: [Hypoxemia] 12-09-2024 Episodic Other lower respiratory disease (1 source) Hypoxemia; Translations: [Hypoxemia] Onset: 12-18-2024 Episodic Other lower respiratory disease (1 source) Dyspnea, unspecified; Translations: [Dyspnea, unspecified] Onset: 12-18-2024 Episodic Other nervous system disorders (8 sources) Paresthesia of hand ; Translations: [Paresthesia of skin] 07-16-2019 Episodic Pneumonia (except that caused by tuberculosis or sexually transmitted disease) (10 sources) Pneumonia; Translations: [Pneumonia, unspecified organism] Onset: 12-18-2024 12-09-2024 Episodic Residual codes; unclassified (8 sources) Obstructive sleep apnea syndrome; Translations: [Obstructive sleep apnea (adult) (pediatric)] 09-15-2023 Chronic Residual codes; unclassified (2 sources) Obstructive sleep apnea (adult) (pediatric); Translations: [Obstructive sleep apnea (adult)(pediatric)] 09-15-2023 Chronic Residual codes; unclassified (8 sources) H/O: steroid therapy; Translations: [Personal history of systemic steroid therapy] 08-28-2019 Episodic Residual codes; unclassified (6 sources) Tobacco user; Translations: [Tobacco use] 12-08-2024 Episodic Residual codes; unclassified (1 source) Refused procedure - parent's wish; Translations: [Procedure and treatment not carried out because of patient's decision for other reasons] Onset: 01-16-2025 Episodic Respiratory failure; insufficiency; arrest (adult) (13 sources) Acute respiratory failure; Translations: [Acute respiratory failure with hypoxia] Onset: 12-18-2024 12-08-2024 Episodic Spondylosis; intervertebral disc disorders; other back problems (20 sources) Lumbosacral stenosis; Translations: [Spinal stenosis, lumbosacral region] 07-16-2019 Episodic Unclassified (8 sources) Encounter for screening for malignant neoplasm of colon; Translations: [Raised cardiac enzyme or marker] Onset: 04-26-2017 12-09-2024 Episodic Unclassified (1 source) Other acidosis; Translations: [Other acidosis] Onset: 12-18-2024 Past or Other Problems Problem Classification Problem Date Documented Da te Episodic/Chronic Abdominal hernia (1 source) Incisional hernia without obstruction or gangrene; Translations: [Incisional hernia without obstruction or gangrene] Onset: 05-26-2017 Episodic Poisoning by other medications and drugs (1 source) Drug overdose Onset: 12-23-2017 12-24-2017 Episodic Results Test Name Value Interpretation Reference Range Facility Absolute lymphocyte countOrd ered By: Jose Vallejo on 01-17-2025 Lymphocytes Auto (Unsp spec) [#/Vol] 3.25 10*3/uL 0.83-4.51 [facility] Absolute neutrophil countOrd ered By: Jose Vallejo on 01-17-2025 Neutrophils (Bld) [#/Vol] 8.3 10*3/uL High 2.0-7.7 [facility] Anion gap in Serum or Plasma Ordered By: Jose Vallejo on 01-17-2025 Anion gap [Moles/Vol] 21 mmol/L High 5-15 [facility] Automated lymphocyte count a s percentage of total leukocytesOrdered By: Jose Vallejo on 01-17-2025 Lymphocytes/100 WBC Auto (Unsp spec) 25.4 % 19-41 [facility] BUN/creatinine ratioOrdered By: Jose Vallejo on 01-17-2025 Urea nitrogen/Creatinine [Mass ratio] 12.7 mg/mg 10-20 [facility] Basophil percentageOrdered B y: Jose Vallejo on 01-17-2025 Basophils/100 WBC (Bld) 0.8 % 0-1 [facility] CO2 (BldV) [Moles/Vol]Ordere d By: Jose Vallejo on 01-17-2025 CO2 [Moles/Vol] 23 mmol/L 23-33 [facility] Carbon dioxide, total [Moles /volume] in Central venous bloodOrdered By: Jose Vallejo on 01-17-2025 CO2 [Moles/Vol] 16.2 mmol/L Low 21.0-32.0 [facility] Chloride assayOrdered By: Juarez Vallejo on 01-17-2025 Chloride [Moles/Vol] 101 mmol/L 98-108 [facility] Eosinophil percentageOrdered By: Jose Vallejo on 01-17-2025 Eosinophils/100 WBC (Bld) 1.1 % 0-5 [facility] Erythrocyte distribution wid th ratioOrdered By: Jose Vallejo on 01-17-2025 Erythrocyte distribution width (RBC) [Ratio] 14.9 % High 11.6-14.6 [facility] Erythrocyte distribution wid th standard deviationOrdered By: Jose Littlejohn on 01-17-2025 Erythrocyte distribution width (RBC) [Ratio] 47.1 fl High 35.1-43.9 [facility] Glomerular filtration rate ( GFR) estimation/1.73 sq m using serum, plasma, or whole bOrdered By: Jose Vallejo on 01-17-2025 GFR/1.73 sq M.predicted among non-blacks MDRD (S/P/Bld) [Vol rate/Area] 63 mL/min/{1.73_m2} >60 [facility] Comment on above: mL/min/1.73m2 CKD-EP I Creatinine Equation (2020) Hematocrit Auto (Bld) [Volum e fraction]Ordered By: Jose Vallejo on 01-17-2025 Hematocrit (Bld) [Volume fraction] 53.6 % 40-54 [facility] Hemoglobin measurementOrdere d By: Jose Vallejo on 01-17-2025 Hemoglobin (Bld) [Mass/Vol] 18.0 g/dL High 13.0-16.5 [facility] Immature granulocytes/100 WB C Auto (Bld)Ordered By: Jose Vallejo on 01-17-2025 Immature granulocytes/100 WBC (Bld) 0.500 % 0.0-0.9 [facility] Comment on above: IG% - Immature Granu locytes (promyelocytes, myelocytes and metamyelocytes) > 1% indicates that a LEFT SHIFT is Present. MCV (mean corpuscular volume ) determinationOrdered By: Jose Vallejo on 01-17-2025 MCV (RBC) [Entitic vol] 87.7 fL 80-94 [facility] Magnesium measurement (mass/ volume)Ordered By: Jose Vallejo on 01-17-2025 Magnesium (Unsp spec) [Mass/Vol] 2.1 mg/dL 1.5-2.2 [facility] Mean corpuscular hemoglobin (MCH) determinationOrdered By: Jose Vallejo on 01-17-2025 MCH (RBC) [Entitic mass] 29.5 pg 27.0-32.0 [facility] Mean corpuscular hemoglobin concentration (MCHC) determinationOrdered By: Jose Vallejo on 01-17-2025 MCHC (RBC) [Mass/Vol] 33.6 g/dL 32-36 [facility] Mean platelet volume determi nationOrdered By: Jose Vallejo on 01-17-2025 Platelet mean volume (Bld) [Entitic vol] 9.4 fL 6.2-12.0 [facility] Monocyte percentageOrdered B y: Jose Vallejo on 01-17-2025 Monocytes/100 WBC (Bld) 7.7 % 0-10 [facility] Natriuretic peptide.B prohor hector N-Terminal [Mass/volume] in Serum or PlasmaOrdered By: Jose Vallejo on 01-17-2025 Natriuretic peptide.B prohormone N-Terminal [Mass/Vol] 782 pg/mL <900 [facility] Comment on above: Heart Failure Unlike ly: < 300 pg/mLHeart Failure Likely< 50 Years: > 450 pg/mL50-75 Years: > 900 pg/mL>75 Years: > 1800 pg/mL Neutrophil percentageOrdered By: Jose Vallejo on 01-17-2025 Neutrophils/100 WBC (Bld) 64.5 % 47-70 [facility] No Panel InformationOrdered By: Jose Vallejo on 01-17-2025 Blood Gas Sample Site Not entered [facility] Blood Gas Specimen Type MATHEW [facility] Oxygen Delivery Device Not entered [facility] Nucleated red blood cell per centageOrdered By: Jose Vallejo on 01-17-2025 Nucleated RBC/100 WBC (Bld) [Ratio] 0 % 0-5 [facility] Platelet countOrdered By: Juarez Vallejo on 01-17-2025 Platelets (Bld) [#/Vol] 248 10*3/uL 150-450 [facility] Potassium measurement (mass/ volume)Ordered By: Jose Vallejo on 01-17-2025 Potassium (Unsp spec) [Mass/Vol] 4.3 mmol/L 3.3-5.1 [facility] RBC Auto (Bld) [#/Vol]Ordere d By: Jose Vallejo on 01-17-2025 RBC (Bld) [#/Vol] 6.11 10*6/uL 4.6-6.2 [facility] Serum creatinine measurement (mass/volume)Ordered By: Jose Vallejo on 01-17-2025 Creatinine [Mass/Vol] 1.27 mg/dL High 0.70-1.20 [facility] Serum glucose measurement (m ass/volume)Ordered By: Jose Vallejo on 01-17-2025 Glucose [Mass/Vol] 162 mg/dL High 70-99 [facility] Serum or plasma calcium jarrod urement (mass/volume)Ordered By: Jose Littlejohn on 01-17-2025 Calcium [Mass/Vol] 9.6 mg/dL 7.6-11.0 [facility] Serum or plasma urea nitroge n measurement (mass/volume)Ordered By: Jose Vallejo on 01-17-2025 Urea nitrogen [Mass/Vol] 16 mg/dL 4-19 [facility] Sodium levelOrdered By: Cordell Vallejo on 01-17-2025 Sodium [Moles/Vol] 138 mmol/L 133-145 [facility] Troponin T.cardiac [Mass/vol ume] in Serum or Plasma by High sensitivity methodOrdered By: Jose Vallejo on 01-17-2025 Troponin T.cardiac High sensitivity method [Mass/Vol] 22 ng/L <22 [facility] Troponin T.cardiac High sensitivity method [Mass/Vol] 18 ng/L <22 [facility] Comment on above: Delta: 36 on Venous blood base excess mikey surementOrdered By: Jose Vallejo on 01-17-2025 Base excess Calc (BldV) [Moles/Vol] -1 mmol/L -1.0-3.5 [facility] Venous blood bicarbonate mikey surementOrdered By: Jose Vallejo on 01-17-2025 HCO3 (Bld) [Moles/Vol] 22 mmol/L 22-26 [facility] Venous blood oxygen saturati on measurementOrdered By: Jose Vallejo on 01-17-2025 Oxygen saturation in Blood 87 % High 50-70 [facility] Venous blood pH measurementO rdered By: Jose Vallejo on 01-17-2025 pH (BldV) 7.47 [pH] High 7.32-7.42 [facility] Venous blood partial pressur e of carbon dioxide measurementOrdered By: Jose Vallejo on 01-17-2025 CO2 (BldV) [Partial pressure] 30.6 mm[Hg] Low 41-51 [facility] Venous blood partial pressur e of oxygen measurementOrdered By: Jose Littlejohn on 01-17-2025 Oxygen (BldV) [Partial pressure] 48 mm[Hg] High 25-40 [facility] White blood cell (WBC) count Ordered By: Jose Vallejo on 01-17-2025 WBC (Bld) [#/Vol] 12.8 10*3/uL High 4.4-11.0 [facility] LABORATORYOrdered By: Homero Rai on 01-16-2025 Appearance (U) Slightly Cloudy *ABN* (01/16/25 4:22 PM) Invalid Interpretation Code Clear AO Auto Urine SS Bacteria LM.HPF (Urine sed) [#/Area] Trace /HPF Invalid Interpretation Code Negative AO Auto Urine SS Bilirubin Ql (U) Moderate *ABN* (01/16/25 4:22 PM) Invalid Interpretation Code Negative AO Auto Urine SS Color (U) Yellow (01/16/25 4:22 PM) Normal AO Auto Urine SS Glucose Test strip (U) [Mass/Vol] Negative Normal Negative AO Auto Urine SS Hemoglobin Auto test strip (U) [Mass/Vol] Small *ABN* (01/16/25 4:22 PM) Invalid Interpretation Code Negative AO Auto Urine SS Ketones Ql (U) 40 mg/dL Invalid Interpretation Code Negative AO Auto Urine SS UA Leuk Est Negative (01/16/25 4:22 PM) Normal Negative AO Auto Urine SS UA Mucous 1+ /HPF Normal AO Auto Urine SS UA Nitrite Negative (01/16/25 4:22 PM) Normal Negative AO Auto Urine SS UA pH 6.0 (01/16/25 4:22 PM) Normal 5.0 - 8.0 AO Auto Urine SS UA Protein 100 mg/dL Invalid Interpretation Code Negative AO Auto Urine SS UA RBC 3-5 /HPF Invalid Interpretation Code 0-2 AO Auto Urine SS UA Spec Grav >=1.030 *ABN* (01/16/25 4:22 PM) Invalid Interpretation Code 1.015-1.02 5 AO Auto Urine SS UA Specimen Type Clean Catch (01/16/25 4:22 PM) Normal AO Auto Urine SS UA Squam Epithelial 10-20 /HPF Normal 0-20 AO Au to Urine SS UA Urobilinogen 0.2 E.U./dL Normal 0.2-1.0 AO Auto Urine SS WBC LM.HPF (Urine sed) [#/Area] 0-2 /HPF Normal 0-5 AO Auto Urine SS LABORATORYOrdered By: SYSTEM SYSTEM on 01-16-2025 aPTT Coag (PPP) [Time] 31.3 s Normal 25.0 - 35.0 seconds AO [facility] Comment on above: Interpretive Data: F or Heparin anticoagulation therapy, the recommended therapeutic range is: 45.4-75.9 seconds. Patients on heparin therapy may have an extreme result. INR Coag (PPP) [Relative time] 1.0 {INR} Invalid Interpretation Code AO [facility] Comment on above: Interpretive Data: Lex choe [employer] [place] [employer] (CHEST, 1992, [id number]) recommended therapeutic range for oral anticoagulant therapy is: LOW RISK: Prophylaxis of venous thrombosis INR: 2.0-3.0 Treatment of pulmonary embolism 2.0-3.0 Prevention of systemic embolism 2.0-3.0 HIGH RISK: Mechanical prosthetic valves 2.5-3.5 PT Coag (PPP) [Time] 11.8 s Normal 9.0 - 1 4.4 seconds AO [facility] SS Albumin BCP dye [Mass/Vol] 3.9 G/dL Normal 3.4 - 4.8 G/dL AO ADM SS Albumin/Globulin [Mass ratio] 1.0 {ratio} Low 1.1 - 2.5 ratio AO ADM SS ALP [Catalytic activity/Vol] 89 U/L Normal 40 - 135 U/L AO ADM SS ALT With P-5'-P [Catalytic activity/Vol] 54 U/L Normal 16 - 63 U/L AO ADM SS AST With P-5'-P [Catalytic activity/Vol] 29 U/L Normal 10 - 40 U/L AO ADM SS Basophils (Bld) [#/Vol] 0.1 103/mcL Normal 0.0 - 0.3 10^3/mcL AO Workflow SS Basophils/100 WBC (Bld) 0.9 % Normal 0.0 - 2.5 % AO Workflow SS Bilirubin [Mass/Vol] 0.8 mg/dL Normal 0.2 - 1 .0 mg/dL AO ADM SS Comment on above: Interpretive Data: U se of this assay is not recommended for patients undergoing treatment with eltrombopag due to the potential for falsely elevated results. Calcium [Mass/Vol] 9.1 mg/dL Normal 8.4 - 10. 2 mg/dL AO ADM SS Chloride [Moles/Vol] 103 mmol/L Normal 98 - 10 7 mmol/L AO ADM SS CO2 [Moles/Vol] 20 mmol/L Low 23 - 31 mmol/L AO ADM SS Creatinine [Mass/Vol] 1.03 mg/dL Normal 0.67 - 1.17 mg/dL AO ADM SS Electrolyte Balance 15.0 mEq/L Normal 4.0 - 15 .0 mEq/L AO ADM SS Eosinophil, Absolute 0.1 103/mcL Normal 0.0 - 0 .7 10^3/mcL AO Workflow SS Eosinophils/100 WBC (Bld) 0.7 % Normal 0.0 - 6.0 % AO Workflow SS Erythrocyte distribution width (RBC) [Ratio] 15.7 % High 11.5 - 15.5 % AO Workflow SS Estimated Glomerular Filtration Rate 81 ml/min/1.73sqm Invalid Interpretation Code AO Chemistry S Comment on above: Interpretive Data: Stages of Chronic Kidney Disease (CKD) Stage Description eGFR(ml/min/1.73 sq.m.) CKD 1 Normal kidney function or >=90 normal kindney function with possible kidney damage (ex. Proteinuria) CKD 2 Kidney damage with mild loss 60-89 of kidney function CKD 3a Mild to moderate loss of kidney 45-59 function CKD 3b Moderate to severe loss of 30-44 of kindey function CKD 4 Severe loss of kidney function 15-29 CKD 5 Kidney failure <15 Note: (go live 2024) the eGFR calculation was updated to the 2020 CKD-EPI creatinine equation without a race factor to calculate the eGFR results. Globulin 4.1 G/dL Normal 2.7 - 4.4 G/dL AO ADM SS Glucose [Mass/Vol] 169 mg/dL High 80 - 115 mg/dL AO ADM SS Hematocrit (Bld) [Volume fraction] 52.8 % High 40.0 - 52.0 % AO Workflow SS Hemoglobin (Bld) [Mass/Vol] 17.8 G/dL High 13.0 - 17.5 G/dL AO Workflow SS Lipase [Catalytic activity/Vol] 40 U/L Normal 16 - 77 U/L AO ADM SS Lymphocytes (Bld) [#/Vol] 2.4 103/mcL Normal 0.9 - 4.3 10^3/mcL AO Workflow SS Lymphocytes/100 WBC (Bld) 20.9 % Normal 20.0 - 40.0 % AO Workflow SS Magnesium [Mass/Vol] 1.8 mg/dL Normal 1.8 - 2 .4 mg/dL AO ADM SS MCH (RBC) [Entitic mass] 29.5 pg Normal 27.0 - 33.0 pg AO Workflow SS MCHC 33.6 G/dL Normal 32.0 - 36.0 G/dL AO Workflow SS MCV (RBC) [Entitic vol] 87.8 fL Normal 81.0 - 100.0 fL AO Workflow SS Monocyte distribution width Auto (Bld) [Entitic vol] 17.03 1 Normal 0.00 - 20.00 AO Workflow SS Comment on above: Result Comment: For ED adult patients suspected of sepsis, MDW<=20.0 does not rule out sepsis or risk of sepsis Monocytes (Bld) [#/Vol] 0.7 103/mcL Normal 0.1 - 1.4 10^3/mcL AO Workflow SS Monocytes/100 WBC (Bld) 6.6 % Normal 2.0 - 13.0 % AO Workflow SS Natriuretic peptide.B prohormone N-Terminal [Mass/Vol] 784 pg/mL High 0 - 125 pg/mL AO ADM SS Comment on above: Interpretive Data: N T-proBNP results of less than 300 pg/mL effectively rules out acute congestive heart failure with 99% negative predictive value. Neutrophils (Bld) [#/Vol] 8.0 103/mcL Normal 2.3 - 8.1 10^3/mcL AO Workflow SS Neutrophils/100 WBC (Bld) 70.9 % Normal 50.0 - 75.0 % AO Workflow SS Platelet mean volume (Bld) [Entitic vol] 7.2 fL Normal 6.4 - 10.5 fL AO Workflow SS Platelets (Bld) [#/Vol] 235 103/mcL Normal 150 - 450 10^3/mcL AO Workflow SS Potassium [Moles/Vol] 4.0 mmol/L Normal 3.5 - 5.1 mmol/L AO ADM SS Protein [Mass/Vol] 8.0 G/dL Normal 6.4 - 8.2 G/dL AO ADM SS RBC (Bld) [#/Vol] 6.01 106/mcL High 4.50 - 6.00 10^6/mcL AO Workflow SS Sodium [Moles/Vol] 138 mmol/L Normal 136 - 145 mmol/L AO ADM SS Troponin I.cardiac DL <= 0.01 ng/mL [Mass/Vol] 13 ng/L Normal 0 - 76 ng/L AO ADM SS Comment on above: Interpretive Data: H igh Sensitive Troponin I Reference Ranges: Female: 0-51 ng/L Male: 0-76 ng/L Testing performed on [employer] using a homogeneous sandwich chemiluminescent immunoassay based on [employer] technology. TSH Qn 3.56 m[IU]/L Normal 0.36 - 3.74 mcIU/mL AO ADM SS Urea nitrogen [Mass/Vol] 12 mg/dL Normal 7 - 18 mg/dL AO ADM SS Urea nitrogen/Creatinine [Mass ratio] 12 ratio Normal 7 - 27 ratio AO ADM SS WBC (Bld) [#/Vol] 11.3 103/mcL High 4.5 - 10.8 10^3/mcL AO Workflow SS Basic Metabolic Profile (BMP )on 12-17-2024 BUN Normal 4-19 [facility] Comment on above: Result Comment: Canc elled via OM: Order cancelled - Patient discharged Performed By: #### L 500.2500, L100.0100 #### [facility] [address] [place], [address] BUN/CRE Normal 10-20 [facility] Comment on above: Result Comment: Canc elled via OM: Order cancelled - Patient discharged Performed By: #### L 500.2500, L100.0100 #### [facility] [address] [place], [address] Calcium Normal 7.6-11.0 [facility] Comment on above: Result Comment: Canc elled via OM: Order cancelled - Patient discharged Performed By: #### L 500.2500, L100.0100 #### [facility] [address] [place], [address] CL Normal 98-108 [facility] Comment on above: Result Comment: Canc elled via OM: Order cancelled - Patient discharged Performed By: #### L 500.2500, L100.0100 #### [facility] [address] [place], [address] CO2 Normal 21.0-32.0 [facility] Comment on above: Result Comment: Canc elled via OM: Order cancelled - Patient discharged Performed By: #### L 500.2500, L100.0100 #### [facility] [address] [place], [address] CREAT,SERUM Normal 0.70-1.20 [facility] Comment on above: Result Comment: Canc elled via OM: Order cancelled - Patient discharged Performed By: #### L 500.2500, L100.0100 #### [facility] [address] [place], [address] eGFR Normal >60 [facility] Comment on above: Result Comment: Canc elled via OM: Order cancelled - Patient discharged Performed By: #### L 500.2500, L100.0100 #### [facility] [address] [place], [address] GAP Normal 5-15 [facility] Comment on above: Result Comment: Canc elled via OM: Order cancelled - Patient discharged Performed By: #### L 500.2500, L100.0100 #### [facility] [address] [place], [address] GLU Normal 70-99 [facility] Comment on above: Result Comment: Canc elled via OM: Order cancelled - Patient discharged Performed By: #### L 500.2500, L100.0100 #### [facility] [address] [place], [address] Potassium Normal 3.3-5.1 [facility] Comment on above: Result Comment: Canc elled via OM: Order cancelled - Patient discharged Performed By: #### L 500.2500, L100.0100 #### [facility] [address] [place], [address] Basic Metabolic Profile (BMP) Normal 133-145 [facility] Comment on above: Result Comment: Canc elled via OM: Order cancelled - Patient discharged Performed By: #### L 500.2500, L100.0100 #### [facility] [address] [place], [address] CBC W/Diff, Automatedon 06-2 -2024 Absolute Neut Normal 2.0-7.7 [facility] Comment on above: Result Comment: Canc elled via OM: Order cancelled - Patient discharged Performed By: #### L 9000.0810 #### [facility] [address], [address] HCT Normal 40-54 [facility] Comment on above: Result Comment: Canc elled via OM: Order cancelled - Patient discharged Performed By: #### L 9000.0810 #### [facility] [address] [place], [address] HGB Normal 13.0-16.5 [facility] Comment on above: Result Comment: Canc elled via OM: Order cancelled - Patient discharged Performed By: #### L 9000.0810 #### [facility] [address] [place], [address] MCH Normal 27.0-32.0 [facility] Comment on above: Result Comment: Canc elled via OM: Order cancelled - Patient discharged Performed By: #### L 9000.0810 #### [facility] [address] [place], [address] MCHC Normal 32-36 [facility] Comment on above: Result Comment: Canc elled via OM: Order cancelled - Patient discharged Performed By: #### L 9000.0810 #### [facility] [address] [place], [address] MCV Normal 80-94 [facility] Comment on above: Result Comment: Canc elled via OM: Order cancelled - Patient discharged Performed By: #### L 9000.0810 #### [facility] [address] [place], [address] NEUT% Normal 47-70 [facility] Comment on above: Result Comment: Canc elled via OM: Order cancelled - Patient discharged Performed By: #### L 9000.0810 #### [facility] [address] [place], [address] PLT Normal 150-450 [facility] Comment on above: Result Comment: Canc elled via OM: Order cancelled - Patient discharged Performed By: #### L 9000.0810 #### [facility] [address] [place], [address] RBC Normal 4.6-6.2 [facility] Comment on above: Result Comment: Canc elled via OM: Order cancelled - Patient discharged Performed By: #### L 9000.0810 #### [facility] [address] [place], [address] RDW CV Normal 11.6-14.6 [facility] Comment on above: Result Comment: Canc elled via OM: Order cancelled - Patient discharged Performed By: #### L 9000.0810 #### [facility] [address] [place], [address] RDW SD Normal 35.1-43.9 [facility] Comment on above: Result Comment: Canc elled via OM: Order cancelled - Patient discharged Performed By: #### L 9000.0810 #### [facility] [address] [place], [address] WBC Normal 4.4-11.0 [facility] Comment on above: Result Comment: Canc elled via OM: Order cancelled - Patient discharged Performed By: #### L 9000.0810 #### [facility] [address] [place], [address] Basic Metabolic Profile (BMP )on 12-16-2024 BUN Normal 4-19 [facility] Comment on above: Result Comment: Canc elled via OM: Order cancelled - Patient discharged Performed By: #### L 9000.0810 #### [facility] [address] [place], [address] BUN/CRE Normal 10-20 [facility] Comment on above: Result Comment: Canc elled via OM: Order cancelled - Patient discharged Performed By: #### L 9000.0810 #### [facility] [address] [place], [address] Calcium Normal 7.6-11.0 [facility] Comment on above: Result Comment: Canc elled via OM: Order cancelled - Patient discharged Performed By: #### L 9000.0810 #### [facility] [address] [place], [address] CL Normal 98-108 [facility] Comment on above: Result Comment: Canc elled via OM: Order cancelled - Patient discharged Performed By: #### L 9000.0810 #### [facility] [address] [place], [address] CO2 Normal 21.0-32.0 [facility] Comment on above: Result Comment: Canc elled via OM: Order cancelled - Patient discharged Performed By: #### L 9000.0810 #### [facility] [address] [place], [address] CREAT,SERUM Normal 0.70-1.20 [facility] Comment on above: Result Comment: Canc elled via OM: Order cancelled - Patient discharged Performed By: #### L 9000.0810 #### [facility] [address] [place], [address] eGFR Normal >60 [facility] Comment on above: Result Comment: Canc elled via OM: Order cancelled - Patient discharged Performed By: #### L 9000.0810 #### [facility] [address] [place], [address] GAP Normal 5-15 [facility] Comment on above: Result Comment: Canc elled via OM: Order cancelled - Patient discharged Performed By: #### L 9000.0810 #### [facility] [address] [place], [address] GLU Normal 70-99 [facility] Comment on above: Result Comment: Canc elled via OM: Order cancelled - Patient discharged Performed By: #### L 9000.0810 #### [facility] [address] [place], [address] Potassium Normal 3.3-5.1 [facility] Comment on above: Result Comment: Canc elled via OM: Order cancelled - Patient discharged Performed By: #### L 9000.0810 #### [facility] [address] [place], [address] Basic Metabolic Profile (BMP) Normal 133-145 [facility] Comment on above: Result Comment: Canc elled via OM: Order cancelled - Patient discharged Performed By: #### L 9000.0810 #### [facility] [address] [place], [address] CBC W/Diff, Automatedon 06-2 -2024 Absolute Neut Normal 2.0-7.7 [facility] Comment on above: Result Comment: Canc elled via OM: Order cancelled - Patient discharged Performed By: #### L 9000.0810 #### [facility] [address] [place], [address] HCT Normal 40-54 [facility] Comment on above: Result Comment: Canc elled via OM: Order cancelled - Patient discharged Performed By: #### L 9000.0810 #### [facility] [address] [place], [address] HGB Normal 13.0-16.5 [facility] Comment on above: Result Comment: Canc elled via OM: Order cancelled - Patient discharged Performed By: #### L 9000.0810 #### [facility] [address] [place], [address] MCH Normal 27.0-32.0 [facility] Comment on above: Result Comment: Canc elled via OM: Order cancelled - Patient discharged Performed By: #### L 9000.0810 #### [facility] [address] [place], [address] MCHC Normal 32-36 [facility] Comment on above: Result Comment: Canc elled via OM: Order cancelled - Patient discharged Performed By: #### L 9000.0810 #### [facility] [address] [place], [address] MCV Normal 80-94 [facility] Comment on above: Result Comment: Canc elled via OM: Order cancelled - Patient discharged Performed By: #### L 9000.0810 #### [facility] [address] [place], [address] NEUT% Normal 47-70 [facility] Comment on above: Result Comment: Canc elled via OM: Order cancelled - Patient discharged Performed By: #### L 9000.0810 #### [facility] [address] [place], [address] PLT Normal 150-450 [facility] Comment on above: Result Comment: Canc elled via OM: Order cancelled - Patient discharged Performed By: #### L 9000.0810 #### [facility] [address] [place], [address] RBC Normal 4.6-6.2 [facility] Comment on above: Result Comment: Canc elled via OM: Order cancelled - Patient discharged Performed By: #### L 9000.0810 #### [facility] [address] [place], [address] RDW CV Normal 11.6-14.6 [facility] Comment on above: Result Comment: Canc elled via OM: Order cancelled - Patient discharged Performed By: #### L 9000.0810 #### [facility] [address] [place], [address] RDW SD Normal 35.1-43.9 [facility] Comment on above: Result Comment: Canc elled via OM: Order cancelled - Patient discharged Performed By: #### L 9000.0810 #### [facility] [address] [place], [address] WBC Normal 4.4-11.0 [facility] Comment on above: Result Comment: Canc elled via OM: Order cancelled - Patient discharged Performed By: #### L 9000.0810 #### [facility] [address] [place], [address] Basic Metabolic Profile (BMP )on 12-15-2024 BUN Normal 4-19 [facility] Comment on above: Result Comment: Canc elled via OM: Order cancelled - Patient discharged Performed By: #### L 500.2500, L100.0100 #### [facility] [address] [place], [address] BUN/CRE Normal 10-20 [facility] Comment on above: Result Comment: Canc elled via OM: Order cancelled - Patient discharged Performed By: #### L 500.2500, L100.0100 #### [facility] [address] [place], [address] Calcium Normal 7.6-11.0 [facility] Comment on above: Result Comment: Canc elled via OM: Order cancelled - Patient discharged Performed By: #### L 500.2500, L100.0100 #### [facility] [address] [place], [address] CL Normal 98-108 [facility] Comment on above: Result Comment: Canc elled via OM: Order cancelled - Patient discharged Performed By: #### L 500.2500, L100.0100 #### [facility] [address] [place], [address] CO2 Normal 21.0-32.0 [facility] Comment on above: Result Comment: Canc elled via OM: Order cancelled - Patient discharged Performed By: #### L 500.2500, L100.0100 #### [facility] [address] [place], [address] CREAT,SERUM Normal 0.70-1.20 [facility] Comment on above: Result Comment: Canc elled via OM: Order cancelled - Patient discharged Performed By: #### L 500.2500, L100.0100 #### [facility] [address] [place], [address] eGFR Normal >60 [facility] Comment on above: Result Comment: Canc elled via OM: Order cancelled - Patient discharged Performed By: #### L 500.2500, L100.0100 #### [facility] [address] [place], [address] GAP Normal 5-15 [facility] Comment on above: Result Comment: Canc elled via OM: Order cancelled - Patient discharged Performed By: #### L 500.2500, L100.0100 #### [facility] [address] [place], [address] GLU Normal 70-99 [facility] Comment on above: Result Comment: Canc elled via OM: Order cancelled - Patient discharged Performed By: #### L 500.2500, L100.0100 #### [facility] [address] [place], [address] Potassium Normal 3.3-5.1 [facility] Comment on above: Result Comment: Canc elled via OM: Order cancelled - Patient discharged Performed By: #### L 500.2500, L100.0100 #### [facility] [address] [place], [address] Basic Metabolic Profile (BMP) Normal 133-145 [facility] Comment on above: Result Comment: Canc elled via OM: Order cancelled - Patient discharged Performed By: #### L 500.2500, L100.0100 #### [facility] [address] [place], [address] CBC W/Diff, Automatedon 06-2 0-2024 Absolute Neut Normal 2.0-7.7 [facility] Comment on above: Result Comment: Canc elled via OM: Order cancelled - Patient discharged Performed By: #### L 500.2500, L100.0100 #### [facility] [address] [place], [address] HCT Normal 40-54 [facility] Comment on above: Result Comment: Canc elled via OM: Order cancelled - Patient discharged Performed By: #### L 500.2500, L100.0100 #### [facility] [address] [place], [address] HGB Normal 13.0-16.5 [facility] Comment on above: Result Comment: Canc elled via OM: Order cancelled - Patient discharged Performed By: #### L 500.2500, L100.0100 #### [facility] [address] [place], [address] MCH Normal 27.0-32.0 [facility] Comment on above: Result Comment: Canc elled via OM: Order cancelled - Patient discharged Performed By: #### L 500.2500, L100.0100 #### [facility] [address] [place], [address] MCHC Normal 32-36 [facility] Comment on above: Result Comment: Canc elled via OM: Order cancelled - Patient discharged Performed By: #### L 500.2500, L100.0100 #### [facility] [address] [place], [address] MCV Normal 80-94 [facility] Comment on above: Result Comment: Canc elled via OM: Order cancelled - Patient discharged Performed By: #### L 500.2500, L100.0100 #### [facility] [address] [place], [address] NEUT% Normal 47-70 [facility] Comment on above: Result Comment: Canc elled via OM: Order cancelled - Patient discharged Performed By: #### L 500.2500, L100.0100 #### [facility] [address] [place], [address] PLT Normal 150-450 [facility] Comment on above: Result Comment: Canc elled via OM: Order cancelled - Patient discharged Performed By: #### L 500.2500, L100.0100 #### [facility] [address] [place], [address] RBC Normal 4.6-6.2 [facility] Comment on above: Result Comment: Canc elled via OM: Order cancelled - Patient discharged Performed By: #### L 500.2500, L100.0100 #### [facility] [facility] [address] [place], [address] RDW CV Normal 11.6-14.6 [facility] Comment on above: Result Comment: Canc elled via OM: Order cancelled - Patient discharged Performed By: #### L 500.2500, L100.0100 #### [facility] [address] [place], [address] RDW SD Normal 35.1-43.9 [facility] Comment on above: Result Comment: Canc elled via OM: Order cancelled - Patient discharged Performed By: #### L 500.2500, L100.0100 #### [facility] [address] [place], [address] WBC Normal 4.4-11.0 [facility] Comment on above: Result Comment: Canc elled via OM: Order cancelled - Patient discharged Performed By: #### L 500.2500, L100.0100 #### [facility] [address] [place], [address] Basic Metabolic Profile (BMP )on 12-14-2024 BUN Normal 4-19 [facility] Comment on above: Result Comment: Canc elled via OM: Order cancelled - Patient discharged Performed By: #### L 500.2500, L100.0100 #### [facility] [address] [place], [address] BUN/CRE Normal 10-20 [facility] Comment on above: Result Comment: Canc elled via OM: Order cancelled - Patient discharged Performed By: #### L 500.2500, L100.0100 #### [facility] [address] [place], [address] Calcium Normal 7.6-11.0 [facility] Comment on above: Result Comment: Canc elled via OM: Order cancelled - Patient discharged Performed By: #### L 500.2500, L100.0100 #### [facility] [address] [place], [address] CL Normal 98-108 [facility] Comment on above: Result Comment: Canc elled via OM: Order cancelled - Patient discharged Performed By: #### L 500.2500, L100.0100 #### [facility] [address] [place], [address] CO2 Normal 21.0-32.0 [facility] Comment on above: Result Comment: Canc elled via OM: Order cancelled - Patient discharged Performed By: #### L 500.2500, L100.0100 #### [facility] [address] [place], [address] CREAT,SERUM Normal 0.70-1.20 [facility] Comment on above: Result Comment: Canc elled via OM: Order cancelled - Patient discharged Performed By: #### L 500.2500, L100.0100 #### [facility] [address] [place], [address] eGFR Normal >60 [facility] Comment on above: Result Comment: Canc elled via OM: Order cancelled - Patient discharged Performed By: #### L 500.2500, L100.0100 #### [facility] [address] [place], [address] GAP Normal 5-15 [facility] Comment on above: Result Comment: Canc elled via OM: Order cancelled - Patient discharged Performed By: #### L 500.2500, L100.0100 #### [facility] [address] [place], [address] GLU Normal 70-99 [facility] Comment on above: Result Comment: Canc elled via OM: Order cancelled - Patient discharged Performed By: #### L 500.2500, L100.0100 #### [facility] [address] [place], [address] Potassium Normal 3.3-5.1 [facility] Comment on above: Result Comment: Canc elled via OM: Order cancelled - Patient discharged Performed By: #### L 500.2500, L100.0100 #### [facility] [address] [place], [address] Basic Metabolic Profile (BMP) Normal 133-145 [facility] Comment on above: Result Comment: Canc elled via OM: Order cancelled - Patient discharged Performed By: #### L 500.2500, L100.0100 #### [facility] [address] [place], [address] CBC W/Diff, Automatedon 06- Absolute Neut Normal 2.0-7.7 [facility] Comment on above: Result Comment: Canc elled via OM: Order cancelled - Patient discharged Performed By: #### L 500.2500, L100.0100 #### [facility] [address] [place], [address] HCT Normal 40-54 [facility] Comment on above: Result Comment: Canc elled via OM: Order cancelled - Patient discharged Performed By: #### L 500.2500, L100.0100 #### [facility] [address] [place], [address] HGB Normal 13.0-16.5 [facility] Comment on above: Result Comment: Canc elled via OM: Order cancelled - Patient discharged Performed By: #### L 500.2500, L100.0100 #### [facility] [address] [place], [address] MCH Normal 27.0-32.0 [facility] Comment on above: Result Comment: Canc elled via OM: Order cancelled - Patient discharged Performed By: #### L 500.2500, L100.0100 #### [facility] [address] [place], [address] MCHC Normal 32-36 [facility] Comment on above: Result Comment: Canc elled via OM: Order cancelled - Patient discharged Performed By: #### L 500.2500, L100.0100 #### [facility] [address] [place], [address] MCV Normal 80-94 [facility] Comment on above: Result Comment: Canc elled via OM: Order cancelled - Patient discharged Performed By: #### L 500.2500, L100.0100 #### [facility] [address] [place], [address] NEUT% Normal 47-70 [facility] Comment on above: Result Comment: Canc elled via OM: Order cancelled - Patient discharged Performed By: #### L 500.2500, L100.0100 #### [facility] [address] [place], [address] PLT Normal 150-450 [facility] Comment on above: Result Comment: Canc elled via OM: Order cancelled - Patient discharged Performed By: #### L 500.2500, L100.0100 #### [facility] [address] [place], [address] RBC Normal 4.6-6.2 [facility] Comment on above: Result Comment: Canc elled via OM: Order cancelled - Patient discharged Performed By: #### L 500.2500, L100.0100 #### [facility] [address] [place], [address] RDW CV Normal 11.6-14.6 [facility] Comment on above: Result Comment: Canc elled via OM: Order cancelled - Patient discharged Performed By: #### L 500.2500, L100.0100 #### [facility] [address] [place], [address] RDW SD Normal 35.1-43.9 [facility] Comment on above: Result Comment: Canc elled via OM: Order cancelled - Patient discharged Performed By: #### L 500.2500, L100.0100 #### [facility] [address] [place], [address] WBC Normal 4.4-11.0 [facility] Comment on above: Result Comment: Canc elled via OM: Order cancelled - Patient discharged Performed By: #### L 500.2500, L100.0100 #### [facility] [address] [place], [address] Basic Metabolic Profile (BMP )on 12-13-2024 BUN Normal 4-19 [facility] Comment on above: Result Comment: Canc elled via OM: Order cancelled - Patient discharged Performed By: #### L 501.9520, L501.6400, L100.0100, L501.5200, L501.4900, L500.4050 #### [facility] [address] [place], [address] BUN/CRE Normal 10-20 [facility] Comment on above: Result Comment: Canc elled via OM: Order cancelled - Patient discharged Performed By: #### L 501.9520, L501.6400, L100.0100, L501.5200, L501.4900, L500.4050 #### [facility] [address] [place], [address] Calcium Normal 7.6-11.0 [facility] Comment on above: Result Comment: Canc elled via OM: Order cancelled - Patient discharged Performed By: #### L 501.9520, L501.6400, L100.0100, L501.5200, L501.4900, L500.4050 #### [facility] [address] [place], [address] CL Normal 98-108 [facility] Comment on above: Result Comment: Canc elled via OM: Order cancelled - Patient discharged Performed By: #### L 501.9520, L501.6400, L100.0100, L501.5200, L501.4900, L500.4050 #### [facility] [address] [place], [address] CO2 Normal 21.0-32.0 [facility] Comment on above: Result Comment: Canc elled via OM: Order cancelled - Patient discharged Performed By: #### L 501.9520, L501.6400, L100.0100, L501.5200, L501.4900, L500.4050 #### [facility] [address] [place], [address] CREAT,SERUM Normal 0.70-1.20 [facility] Comment on above: Result Comment: Canc elled via OM: Order cancelled - Patient discharged Performed By: #### L 501.9520, L501.6400, L100.0100, L501.5200, L501.4900, L500.4050 #### [facility] [address] [place], [address] eGFR Normal >60 [facility] Comment on above: Result Comment: Canc elled via OM: Order cancelled - Patient discharged Performed By: #### L 501.9520, L501.6400, L100.0100, L501.5200, L501.4900, L500.4050 #### [facility] [address] [place], [address] GAP Normal 5-15 [facility] Comment on above: Result Comment: Canc elled via OM: Order cancelled - Patient discharged Performed By: #### L 501.9520, L501.6400, L100.0100, L501.5200, L501.4900, L500.4050 #### [facility] [address] [place], [address] GLU Normal 70-99 [facility] Comment on above: Result Comment: Canc elled via OM: Order cancelled - Patient discharged Performed By: #### L 501.9520, L501.6400, L100.0100, L501.5200, L501.4900, L500.4050 #### [facility] [address] [place], [address] Potassium Normal 3.3-5.1 [facility] Comment on above: Result Comment: Canc elled via OM: Order cancelled - Patient discharged Performed By: #### L 501.9520, L501.6400, L100.0100, L501.5200, L501.4900, L500.4050 #### [facility] [address] [place], [address] Basic Metabolic Profile (BMP) Normal 133-145 [facility] Comment on above: Result Comment: Canc elled via OM: Order cancelled - Patient discharged Performed By: #### L 501.9520, L501.6400, L100.0100, L501.5200, L501.4900, L500.4050 #### [facility] [address] [place], [address] CBC W/Diff, Automatedon 06- Absolute Neut Normal 2.0-7.7 [facility] Comment on above: Result Comment: Canc elled via OM: Order cancelled - Patient discharged Performed By: #### L 501.9520, L501.6400, L100.0100, L501.5200, L501.4900, L500.4050 #### [facility] [address] [place], [address] HCT Normal 40-54 [facility] Comment on above: Result Comment: Canc elled via OM: Order cancelled - Patient discharged Performed By: #### L 501.9520, L501.6400, L100.0100, L501.5200, L501.4900, L500.4050 #### [facility] [address] [place], [address] HGB Normal 13.0-16.5 [facility] Comment on above: Result Comment: Canc elled via OM: Order cancelled - Patient discharged Performed By: #### L 501.9520, L501.6400, L100.0100, L501.5200, L501.4900, L500.4050 #### [facility] [address] [place], [address] MCH Normal 27.0-32.0 [facility] Comment on above: Result Comment: Canc elled via OM: Order cancelled - Patient discharged Performed By: #### L 501.9520, L501.6400, L100.0100, L501.5200, L501.4900, L500.4050 #### [facility] [address] [place], [address] MCHC Normal 32-36 [facility] Comment on above: Result Comment: Canc elled via OM: Order cancelled - Patient discharged Performed By: #### L 501.9520, L501.6400, L100.0100, L501.5200, L501.4900, L500.4050 #### [facility] [address] [place], [address] MCV Normal 80-94 [facility] Comment on above: Result Comment: Canc elled via OM: Order cancelled - Patient discharged Performed By: #### L 501.9520, L501.6400, L100.0100, L501.5200, L501.4900, L500.4050 #### [facility] [address] [place], [address] NEUT% Normal 47-70 [facility] Comment on above: Result Comment: Canc elled via OM: Order cancelled - Patient discharged Performed By: #### L 501.9520, L501.6400, L100.0100, L501.5200, L501.4900, L500.4050 #### [facility] [address] [place], [address] PLT Normal 150-450 [facility] Comment on above: Result Comment: Canc elled via OM: Order cancelled - Patient discharged Performed By: #### L 501.9520, L501.6400, L100.0100, L501.5200, L501.4900, L500.4050 #### [facility] [address] [place], [address] RBC Normal 4.6-6.2 [facility] Comment on above: Result Comment: Canc elled via OM: Order cancelled - Patient discharged Performed By: #### L 501.9520, L501.6400, L100.0100, L501.5200, L501.4900, L500.4050 #### [facility] [address] [place], [address] RDW CV Normal 11.6-14.6 [facility] Comment on above: Result Comment: Canc elled via OM: Order cancelled - Patient discharged Performed By: #### L 501.9520, L501.6400, L100.0100, L501.5200, L501.4900, L500.4050 #### [facility] [address] [place], [address] RDW SD Normal 35.1-43.9 [facility] Comment on above: Result Comment: Canc elled via OM: Order cancelled - Patient discharged Performed By: #### L 501.9520, L501.6400, L100.0100, L501.5200, L501.4900, L500.4050 #### [facility] [address] [place], [address] WBC Normal 4.4-11.0 [facility] Comment on above: Result Comment: Canc elled via OM: Order cancelled - Patient discharged Performed By: #### L 501.9520, L501.6400, L100.0100, L501.5200, L501.4900, L500.4050 #### [facility] [address] [place], [address] Basic Metabolic Profile (BMP )on 12-12-2024 BUN Normal 4-19 [facility] Comment on above: Result Comment: Canc elled via OM: Order cancelled - Patient discharged Performed By: #### L 501.9520, L501.6400, L100.0100, L501.5200, L501.4900, L500.4050 #### [facility] [address] [place], [address] BUN/CRE Normal 10-20 [facility] Comment on above: Result Comment: Canc elled via OM: Order cancelled - Patient discharged Performed By: #### L 501.9520, L501.6400, L100.0100, L501.5200, L501.4900, L500.4050 #### [facility] [address] [place], [address] Calcium Normal 7.6-11.0 [facility] Comment on above: Result Comment: Canc elled via OM: Order cancelled - Patient discharged Performed By: #### L 501.9520, L501.6400, L100.0100, L501.5200, L501.4900, L500.4050 #### [facility] [address] [place], [address] CL Normal 98-108 [facility] Comment on above: Result Comment: Canc elled via OM: Order cancelled - Patient discharged Performed By: #### L 501.9520, L501.6400, L100.0100, L501.5200, L501.4900, L500.4050 #### [facility] [address] [place], [address] CO2 Normal 21.0-32.0 [facility] Comment on above: Result Comment: Canc elled via OM: Order cancelled - Patient discharged Performed By: #### L 501.9520, L501.6400, L100.0100, L501.5200, L501.4900, L500.4050 #### [facility] [address] [place], [address] CREAT,SERUM Normal 0.70-1.20 [facility] Comment on above: Result Comment: Canc elled via OM: Order cancelled - Patient discharged Performed By: #### L 501.9520, L501.6400, L100.0100, L501.5200, L501.4900, L500.4050 #### [facility] [address] [place], [address] eGFR Normal >60 [facility] Comment on above: Result Comment: Canc elled via OM: Order cancelled - Patient discharged Performed By: #### L 501.9520, L501.6400, L100.0100, L501.5200, L501.4900, L500.4050 #### [facility] [address] [place], [address] GAP Normal 5-15 [facility] Comment on above: Result Comment: Canc elled via OM: Order cancelled - Patient discharged Performed By: #### L 501.9520, L501.6400, L100.0100, L501.5200, L501.4900, L500.4050 #### [facility] [address] [place], [address] GLU Normal 70-99 [facility] Comment on above: Result Comment: Canc elled via OM: Order cancelled - Patient discharged Performed By: #### L 501.9520, L501.6400, L100.0100, L501.5200, L501.4900, L500.4050 #### [facility] [address] [place], [address] Potassium Normal 3.3-5.1 [facility] Comment on above: Result Comment: Canc elled via OM: Order cancelled - Patient discharged Performed By: #### L 501.9520, L501.6400, L100.0100, L501.5200, L501.4900, L500.4050 #### [facility] [address] [place], [address] Basic Metabolic Profile (BMP) Normal 133-145 [facility] Comment on above: Result Comment: Canc elled via OM: Order cancelled - Patient discharged Performed By: #### L 501.9520, L501.6400, L100.0100, L501.5200, L501.4900, L500.4050 #### [facility] [address] [place], [address] CBC W/Diff, Automatedon 06-1 Absolute Neut Normal 2.0-7.7 [facility] Comment on above: Result Comment: Canc elled via OM: Order cancelled - Patient discharged Performed By: #### L 501.9520, L501.6400, L100.0100, L501.5200, L501.4900, L500.4050 #### [facility] [address] [place], [place], [id number] (853) HCT Normal 40-54 [facility] Comment on above: Result Comment: Canc elled via OM: Order cancelled - Patient discharged Performed By: #### L 501.9520, L501.6400, L100.0100, L501.5200, L501.4900, L500.4050 #### [facility] [address] [place], [place], [id number] ([phone]) HGB Normal 13.0-16.5 [facility] Comment on above: Result Comment: Canc elled via OM: Order cancelled - Patient discharged Performed By: #### L 501.9520, L501.6400, L100.0100, L501.5200, L501.4900, L500.4050 #### [facility] [address] [place], [place], [id number] (390) MCH Normal 27.0-32.0 [facility] Comment on above: Result Comment: Canc elled via OM: Order cancelled - Patient discharged Performed By: #### L 501.9520, L501.6400, L100.0100, L501.5200, L501.4900, L500.4050 #### [facility] [address] [place], [address] MCHC Normal 32-36 [facility] Comment on above: Result Comment: Canc elled via OM: Order cancelled - Patient discharged Performed By: #### L 501.9520, L501.6400, L100.0100, L501.5200, L501.4900, L500.4050 #### [facility] [address] [place], [address] MCV Normal 80-94 [facility] Comment on above: Result Comment: Canc elled via OM: Order cancelled - Patient discharged Performed By: #### L 501.9520, L501.6400, L100.0100, L501.5200, L501.4900, L500.4050 #### [facility] [address] [place], [address] NEUT% Normal 47-70 [facility] Comment on above: Result Comment: Canc elled via OM: Order cancelled - Patient discharged Performed By: #### L 501.9520, L501.6400, L100.0100, L501.5200, L501.4900, L500.4050 #### [facility] [address] [place], [address] PLT Normal 150-450 [facility] Comment on above: Result Comment: Canc elled via OM: Order cancelled - Patient discharged Performed By: #### L 501.9520, L501.6400, L100.0100, L501.5200, L501.4900, L500.4050 #### [facility] [address] [place], [address] RBC Normal 4.6-6.2 [facility] Comment on above: Result Comment: Canc elled via OM: Order cancelled - Patient discharged Performed By: #### L 501.9520, L501.6400, L100.0100, L501.5200, L501.4900, L500.4050 #### [facility] [address] [place], [address] RDW CV Normal 11.6-14.6 [facility] Comment on above: Result Comment: Canc elled via OM: Order cancelled - Patient discharged Performed By: #### L 501.9520, L501.6400, L100.0100, L501.5200, L501.4900, L500.4050 #### [facility] [address] [place], [address] RDW SD Normal 35.1-43.9 [facility] Comment on above: Result Comment: Canc elled via OM: Order cancelled - Patient discharged Performed By: #### L 501.9520, L501.6400, L100.0100, L501.5200, L501.4900, L500.4050 #### [facility] [address] [place], [address] WBC Normal 4.4-11.0 [facility] Comment on above: Result Comment: Canc elled via OM: Order cancelled - Patient discharged Performed By: #### L 501.9520, L501.6400, L100.0100, L501.5200, L501.4900, L500.4050 #### [facility] [address] [place], [address] Basic Metabolic Profile (BMP )on 12-11-2024 BUN Normal 4-19 [facility] Comment on above: Result Comment: Canc elled via OM: Order cancelled - Patient discharged Performed By: #### L 501.9520, L501.6400, L100.0100, L501.5200, L501.4900, L500.4050 #### [facility] [address], [address] BUN/CRE Normal 10-20 [facility] [facility] Comment on above: Result Comment: Canc elled via OM: Order cancelled - Patient discharged Performed By: #### L 501.9520, L501.6400, L100.0100, L501.5200, L501.4900, L500.4050 #### [facility] [address] [place], [address] Calcium Normal 7.6-11.0 [facility] Comment on above: Result Comment: Canc elled via OM: Order cancelled - Patient discharged Performed By: #### L 501.9520, L501.6400, L100.0100, L501.5200, L501.4900, L500.4050 #### [facility] [address] [place], [address] CL Normal 98-108 [facility] Comment on above: Result Comment: Canc elled via OM: Order cancelled - Patient discharged Performed By: #### L 501.9520, L501.6400, L100.0100, L501.5200, L501.4900, L500.4050 #### [facility] [address] [place], [address] CO2 Normal 21.0-32.0 [facility] Comment on above: Result Comment: Canc elled via OM: Order cancelled - Patient discharged Performed By: #### L 501.9520, L501.6400, L100.0100, L501.5200, L501.4900, L500.4050 #### [facility] [address] [place], [address] CREAT,SERUM Normal 0.70-1.20 [facility] Comment on above: Result Comment: Canc elled via OM: Order cancelled - Patient discharged Performed By: #### L 501.9520, L501.6400, L100.0100, L501.5200, L501.4900, L500.4050 #### [facility] [address] [place], [address] eGFR Normal >60 [facility] Comment on above: Result Comment: Canc elled via OM: Order cancelled - Patient discharged Performed By: #### L 501.9520, L501.6400, L100.0100, L501.5200, L501.4900, L500.4050 #### [facility] [address] [place], [address] GAP Normal 5-15 [facility] Comment on above: Result Comment: Canc elled via OM: Order cancelled - Patient discharged Performed By: #### L 501.9520, L501.6400, L100.0100, L501.5200, L501.4900, L500.4050 #### [facility] [address] [place], [address] GLU Normal 70-99 [facility] Comment on above: Result Comment: Canc elled via OM: Order cancelled - Patient discharged Performed By: #### L 501.9520, L501.6400, L100.0100, L501.5200, L501.4900, L500.4050 #### [facility] [address] [place], [address] Potassium Normal 3.3-5.1 [facility] Comment on above: Result Comment: Canc elled via OM: Order cancelled - Patient discharged Performed By: #### L 501.9520, L501.6400, L100.0100, L501.5200, L501.4900, L500.4050 #### [facility] [address] [place], [address] Basic Metabolic Profile (BMP) Normal 133-145 [facility] Comment on above: Result Comment: Canc elled via OM: Order cancelled - Patient discharged Performed By: #### L 501.9520, L501.6400, L100.0100, L501.5200, L501.4900, L500.4050 #### [facility] [address] [place], [address] CBC W/Diff, Automatedon 06- Absolute Neut Normal 2.0-7.7 [facility] Comment on above: Result Comment: Canc elled via OM: Order cancelled - Patient discharged Performed By: #### L 501.9520, L501.6400, L100.0100, L501.5200, L501.4900, L500.4050 #### [facility] [address] [place], [address] HCT Normal 40-54 [facility] Comment on above: Result Comment: Canc elled via OM: Order cancelled - Patient discharged Performed By: #### L 501.9520, L501.6400, L100.0100, L501.5200, L501.4900, L500.4050 #### [facility] [address] [place], [address] HGB Normal 13.0-16.5 [facility] Comment on above: Result Comment: Canc elled via OM: Order cancelled - Patient discharged Performed By: #### L 501.9520, L501.6400, L100.0100, L501.5200, L501.4900, L500.4050 #### [facility] [address] [place], [address] MCH Normal 27.0-32.0 [facility] Comment on above: Result Comment: Canc elled via OM: Order cancelled - Patient discharged Performed By: #### L 501.9520, L501.6400, L100.0100, L501.5200, L501.4900, L500.4050 #### [facility] [address] [place], [address] MCHC Normal 32-36 [facility] Comment on above: Result Comment: Canc elled via OM: Order cancelled - Patient discharged Performed By: #### L 501.9520, L501.6400, L100.0100, L501.5200, L501.4900, L500.4050 #### [facility] [address] [place], [address] MCV Normal 80-94 [facility] Comment on above: Result Comment: Canc elled via OM: Order cancelled - Patient discharged Performed By: #### L 501.9520, L501.6400, L100.0100, L501.5200, L501.4900, L500.4050 #### [facility] [address] [place], [address] NEUT% Normal 47-70 [facility] Comment on above: Result Comment: Canc elled via OM: Order cancelled - Patient discharged Performed By: #### L 501.9520, L501.6400, L100.0100, L501.5200, L501.4900, L500.4050 #### [facility] [address] [place], [address] PLT Normal 150-450 [facility] Comment on above: Result Comment: Canc elled via OM: Order cancelled - Patient discharged Performed By: #### L 501.9520, L501.6400, L100.0100, L501.5200, L501.4900, L500.4050 #### [facility] [address] [place], [address] RBC Normal 4.6-6.2 [facility] Comment on above: Result Comment: Canc elled via OM: Order cancelled - Patient discharged Performed By: #### L 501.9520, L501.6400, L100.0100, L501.5200, L501.4900, L500.4050 #### [facility] [address] [place], [address] RDW CV Normal 11.6-14.6 [facility] Comment on above: Result Comment: Canc elled via OM: Order cancelled - Patient discharged Performed By: #### L 501.9520, L501.6400, L100.0100, L501.5200, L501.4900, L500.4050 #### [facility] [address] [place], [address] RDW SD Normal 35.1-43.9 [facility] Comment on above: Result Comment: Canc elled via OM: Order cancelled - Patient discharged Performed By: #### L 501.9520, L501.6400, L100.0100, L501.5200, L501.4900, L500.4050 #### [facility] [address] [place], [address] WBC Normal 4.4-11.0 [facility] Comment on above: Result Comment: Canc elled via OM: Order cancelled - Patient discharged Performed By: #### L 501.9520, L501.6400, L100.0100, L501.5200, L501.4900, L500.4050 #### [facility] [address] [place], [address] Urine Cultureon 12-11-2024 URC Culture exhibits no growth. Normal [facility] Comment on above: Performed By: #### L 501.9520, L501.6400, L100.0100, L501.5200, L501.4900, L500.4050 #### [facility] [address] [place], [address] Basic Metabolic Profile (BMP )on 12-10-2024 BUN Normal 4-19 [facility] Comment on above: Result Comment: Canc elled via OM: Order cancelled - Patient discharged Performed By: #### L 500.2500, L100.0100 #### [facility] [address] [place], [address] Order Comment: NO BL OOD PER RN ESPERANZA Result Comment: DISC HARGED BUN/CRE Normal 10-20 [facility] Comment on above: Result Comment: Canc elled via OM: Order cancelled - Patient discharged Performed By: #### L 500.2500, L100.0100 #### [facility] [address] [place], [address] Order Comment: NO BL OOD PER RN ESPERANZA Result Comment: DISC HARGED Calcium Normal 7.6-11.0 [facility] Comment on above: Result Comment: Canc elled via OM: Order cancelled - Patient discharged Performed By: #### L 500.2500, L100.0100 #### [facility] [address] [place], [address] Order Comment: NO BL OOD PER RN ESPERANZA Result Comment: DISC HARGED CL Normal 98-108 [facility] Comment on above: Result Comment: Canc elled via OM: Order cancelled - Patient discharged Performed By: #### L 500.2500, L100.0100 #### [facility] [address] [place], [address] Order Comment: NO BL OOD PER RN ESPERANZA Result Comment: DISC HARGED CO2 Normal 21.0-32.0 [facility] Comment on above: Result Comment: Canc elled via OM: Order cancelled - Patient discharged Performed By: #### L 500.2500, L100.0100 #### [facility] [address] [place], [address] Order Comment: NO BL OOD PER RN ESPERANZA Result Comment: DISC HARGED CREAT,SERUM Normal 0.70-1.20 [facility] Comment on above: Result Comment: Canc elled via OM: Order cancelled - Patient discharged Performed By: #### L 500.2500, L100.0100 #### [facility] [address] [place], [address] Order Comment: NO BL OOD PER RN ESPERANZA Result Comment: DISC HARGED eGFR Normal >60 [facility] Comment on above: Result Comment: Canc elled via OM: Order cancelled - Patient discharged Performed By: #### L 500.2500, L100.0100 #### [facility] [address] [place], [address] Order Comment: NO BL OOD PER RN ESPERANZA Result Comment: DISC HARGED GAP Normal 5-15 [facility] Comment on above: Result Comment: Canc elled via OM: Order cancelled - Patient discharged Performed By: #### L 500.2500, L100.0100 #### [facility] [address] [place], [address] Order Comment: NO BL OOD PER RN ESPERANZA Result Comment: DISC HARGED GLU Normal 70-99 [facility] Comment on above: Result Comment: Canc elled via OM: Order cancelled - Patient discharged Performed By: #### L 500.2500, L100.0100 #### [facility] [address] [place], [address] Order Comment: NO BL OOD PER RN ESPERANZA Result Comment: DISC HARGED Potassium Normal 3.3-5.1 [facility] Comment on above: Result Comment: Canc elled via OM: Order cancelled - Patient discharged Performed By: #### L 500.2500, L100.0100 #### [facility] [address] [place], [address] Order Comment: NO BL OOD PER RN ESPERANZA Result Comment: DISC HARGED Basic Metabolic Profile (BMP) Normal 133-145 [facility] Comment on above: Result Comment: Canc elled via OM: Order cancelled - Patient discharged Performed By: #### L 500.2500, L100.0100 #### [facility] [address] [place], [address] Order Comment: NO BL OOD PER RN ESPERANZA Result Comment: DISC HARGED CBC W/Diff, Automatedon 06-1 Absolute Neut Normal 2.0-7.7 [facility] Comment on above: Result Comment: Canc elled via OM: Order cancelled - Patient discharged Performed By: #### L 500.2500, L100.0100 #### [facility] [address] [place], [address] Order Comment: NO BL OOD PER RN ESPERANZA- Result Comment: DISC HARGED HCT Normal 40-54 [facility] Comment on above: Result Comment: Canc elled via OM: Order cancelled - Patient discharged Performed By: #### L 500.2500, L100.0100 #### [facility] [address] [place], [address] Order Comment: NO BL OOD PER RN ESPERANZA- Result Comment: DISC HARGED HGB Normal 13.0-16.5 [facility] Comment on above: Result Comment: Canc elled via OM: Order cancelled - Patient discharged Performed By: #### L 500.2500, L100.0100 #### [facility] [address] [place], [address] Order Comment: NO BL OOD PER RN ESPERANZA- Result Comment: DISC HARGED MCH Normal 27.0-32.0 [facility] Comment on above: Result Comment: Canc elled via OM: Order cancelled - Patient discharged Performed By: #### L 500.2500, L100.0100 #### [facility] [address] [place], [address] Order Comment: NO BL OOD PER RN ESPERANZA- Result Comment: DISC HARGED MCHC Normal 32-36 [facility] Comment on above: Result Comment: Canc elled via OM: Order cancelled - Patient discharged Performed By: #### L 500.2500, L100.0100 #### [facility] [address] [place], [address] Order Comment: NO BL OOD PER RN ESPERANZA- Result Comment: DISC HARGED MCV Normal 80-94 [facility] Comment on above: Result Comment: Canc elled via OM: Order cancelled - Patient discharged Performed By: #### L 500.2500, L100.0100 #### [facility] [address] [place], [address] Order Comment: NO BL OOD PER RN ESPERANZA- Result Comment: DISC HARGED NEUT% Normal 47-70 [facility] Comment on above: Result Comment: Canc elled via OM: Order cancelled - Patient discharged Performed By: #### L 500.2500, L100.0100 #### [facility] [address] [place], [address] Order Comment: NO BL OOD PER RN ESPERANZA- Result Comment: DISC HARGED PLT Normal 150-450 [facility] Comment on above: Result Comment: Canc elled via OM: Order cancelled - Patient discharged Performed By: #### L 500.2500, L100.0100 #### [facility] [address] [place], [address] Order Comment: NO BL OOD PER RN ESPERANZA- Result Comment: DISC HARGED RBC Normal 4.6-6.2 [facility] Comment on above: Result Comment: Canc elled via OM: Order cancelled - Patient discharged Performed By: #### L 500.2500, L100.0100 #### [facility] [address] [place], [address] Order Comment: NO BL OOD PER RN ESPERANZA- Result Comment: DISC HARGED RDW CV Normal 11.6-14.6 [facility] Comment on above: Result Comment: Canc elled via OM: Order cancelled - Patient discharged Performed By: #### L 500.2500, L100.0100 #### [facility] [address] [place], [address] Order Comment: NO BL OOD PER RN ESPERANZA- Result Comment: DISC HARGED RDW SD Normal 35.1-43.9 [facility] Comment on above: Result Comment: Canc elled via OM: Order cancelled - Patient discharged Performed By: #### L 500.2500, L100.0100 #### [facility] [address] [place], [address] Order Comment: NO BL OOD PER RN ESPERANZA- Result Comment: DISC HARGED WBC Normal 4.4-11.0 [facility] Comment on above: Result Comment: Canc elled via OM: Order cancelled - Patient discharged Performed By: #### L 500.2500, L100.0100 #### [facility] [address] [place], [place], [address] Order Comment: NO BL OOD PER RN ESPERANZA- Result Comment: DISC HARGED Absolute lymphocyte countOrd ered By: Odilia Burgos on 12-09-2024 Lymphocytes Auto (Unsp spec) [#/Vol] 2.05 10*3/uL 0.83-4.51 [facility] Absolute neutrophil countOrd ered By: Odilia Burgos on 12-09-2024 Neutrophils (Bld) [#/Vol] 9.3 10*3/uL High 2.0-7.7 [facility] Amorphous sediment detection in urine sediment by light microscopyOrdered By: Odilia Burgos on 12-09-2024 Amorphous sediment LM Ql (Urine sed) 1+ [facility] Anion gap in Serum or Plasma Ordered By: Odilia Burgos on 12-09-2024 Anion gap [Moles/Vol] 13 mmol/L 5-15 [facility] Assessment of wrist artery p atency prior to arterial punctureOrdered By: Jose David Georges on 12-09-2024 Arterial patency Wrist artery --pre arterial puncture Positive [facility] Automated lymphocyte count a s percentage of total leukocytesOrdered By: Odilia Burgos on 12-09-2024 Lymphocytes/100 WBC Auto (Unsp spec) 16.7 % Low 19-41 [facility] BUN/creatinine ratioOrdered By: Odilia Burgos on 12-09-2024 Urea nitrogen/Creatinine [Mass ratio] 10.0 mg/mg 10- [facility] Basic Metabolic Profile (BMP )on 12-09-2024 BUN Normal 4- [facility] Comment on above: Result Comment: Canc elled via OM: Order cancelled - Patient discharged Performed By: #### L 501.9520, L501.6400, L100.0100, L501.5200, L501.4900, L500.4050 #### [facility] [address] [place], [place], [address] BUN/CRE Normal 10- [facility] Comment on above: Result Comment: Canc elled via OM: Order cancelled - Patient discharged Performed By: #### L 501.9520, L501.6400, L100.0100, L501.5200, L501.4900, L500.4050 #### [facility] [address] [place], [address] Calcium Normal 7.6-11.0 [facility] Comment on above: Result Comment: Canc elled via OM: Order cancelled - Patient discharged Performed By: #### L 501.9520, L501.6400, L100.0100, L501.5200, L501.4900, L500.4050 #### [facility] [address] [place], [address] CL Normal 98-108 [facility] Comment on above: Result Comment: Canc elled via OM: Order cancelled - Patient discharged Performed By: #### L 501.9520, L501.6400, L100.0100, L501.5200, L501.4900, L500.4050 #### [facility] [address] [place], [address] CO2 Normal 21.0-32.0 [facility] Comment on above: Result Comment: Canc elled via OM: Order cancelled - Patient discharged Performed By: #### L 501.9520, L501.6400, L100.0100, L501.5200, L501.4900, L500.4050 #### [facility] [address] [place], [address] CREAT,SERUM Normal 0.70-1.20 [facility] Comment on above: Result Comment: Canc elled via OM: Order cancelled - Patient discharged Performed By: #### L 501.9520, L501.6400, L100.0100, L501.5200, L501.4900, L500.4050 #### [facility] [address] [place], [address] eGFR Normal >60 [facility] Comment on above: Result Comment: Canc elled via OM: Order cancelled - Patient discharged Performed By: #### L 501.9520, L501.6400, L100.0100, L501.5200, L501.4900, L500.4050 #### [facility] [address] [place], [address] GAP Normal 5-15 [facility] Comment on above: Result Comment: Canc elled via OM: Order cancelled - Patient discharged Performed By: #### L 501.9520, L501.6400, L100.0100, L501.5200, L501.4900, L500.4050 #### [facility] [address] [place], [address] GLU Normal 70-99 [facility] Comment on above: Result Comment: Canc elled via OM: Order cancelled - Patient discharged Performed By: #### L 501.9520, L501.6400, L100.0100, L501.5200, L501.4900, L500.4050 #### [facility] [address] [place], [address] Potassium Normal 3.3-5.1 [facility] Comment on above: Result Comment: Canc elled via OM: Order cancelled - Patient discharged Performed By: #### L 501.9520, L501.6400, L100.0100, L501.5200, L501.4900, L500.4050 #### [facility] [address] [place], [address] Basic Metabolic Profile (BMP) Normal 133-145 [facility] Comment on above: Result Comment: Canc elled via OM: Order cancelled - Patient discharged Performed By: #### L 501.9520, L501.6400, L100.0100, L501.5200, L501.4900, L500.4050 #### [facility] [address] [place], [address] Basophil percentageOrdered B y: Odilianinfa Burgos on 12-09-2024 Basophils/100 WBC (Bld) 0.5 % 0-1 [facility] Bilirubin Test strip Ql (U)O rdered By: Odilia Burgos on 12-09-2024 Bilirubin Ql (U) 3 mg/dL High Negative [facility] Comment on above: COLOR OF URINE MAY A FFECT DIPSTICK RESULTS. Bilirubin, totalOrdered By: Odilia Burgos on 12-09-2024 Bilirubin [Mass/Vol] 0.71 mg/dL 0.00-1.30 [facility] Blood Gases by CPSon 025 OSCAR TEST Positive Normal [facility] Comment on above: Performed By: #### L 500.2500, L100.0100 #### [facility] [address] [place], [address] Base excess Calc (Bld) [Moles/Vol] -2 mmol/L Normal -2 to +2 [facility] Comment on above: Performed By: #### L 500.2500, L100.0100 #### [facility] [address] [place], [address] Blood Gas Type ART Normal [facility] Comment on above: Performed By: #### L 500.2500, L100.0100 #### [facility] [address] [place], [address] CO2 [Moles/Vol] 25 mmol/L Normal [facility] Comment on above: Performed By: #### L 500.2500, L100.0100 #### [facility] [address] [place], [address] Comment Home unit: 17/5 21% Normal [facility] Comment on above: Performed By: #### L 500.2500, L100.0100 #### [facility] [address] [place], [address] FI02 21.0 Normal [facility] Comment on above: Performed By: #### L 500.2500, L100.0100 #### [facility] [address] [place], [address] HCO3 (Bld) [Moles/Vol] 24.1 mmol/L Normal 22-26 [facility] Comment on above: Performed By: #### L 500.2500, L100.0100 #### [facility] [address] [place], [address] Mode Not entered Normal [facility] Comment on above: Performed By: #### L 500.2500, L100.0100 #### [facility] [address] [place], [address] O2 Delivery Dev BiPAP Normal [facility] Comment on above: Performed By: #### L 500.2500, L100.0100 #### [facility] [address] [place], [address] pCO2 43.5 mmHg Normal 35-45 [facility] Comment on above: Performed By: #### L 500.2500, L100.0100 #### [facility] [address] [place], [address] pH (Bld) 7.35 [pH] Normal 7.35-7.45 [facility] Comment on above: Performed By: #### L 500.2500, L100.0100 #### [facility] [address] [place], [address] PO2 71 mmHG Low 75-100 [facility] Comment on above: Performed By: #### L 500.2500, L100.0100 #### [facility] [address] [place], [address] SITE R Brach Normal [facility] Comment on above: Performed By: #### L 500.2500, L100.0100 #### [facility] [address] [place], [address] SO2 93 Low 95-99 [facility] Comment on above: Performed By: #### L 500.2500, L100.0100 #### [facility] [address] [place], [address] Blood base excess determinat ionOrdered By: Jose David Georges on 12-09-2024 Base excess Calc (BldV) [Moles/Vol] -2 mmol/L -2-2 [facility] Blood bicarbonate measuremen tOrdered By: Jose David Georges on 12-09-2024 HCO3 (Bld) [Moles/Vol] 24.1 mmol/L [facility] CBC W/Diff, Automatedon 11-26 Absolute Neut Normal 2.0-7.7 [facility] Comment on above: Result Comment: Canc elled via OM: Order cancelled - Patient discharged Performed By: #### L 501.9520, L501.6400, L100.0100, L501.5200, L501.4900, L500.4050 #### [facility] [address] [place], [address] HCT Normal 40-54 [facility] Comment on above: Result Comment: Canc elled via OM: Order cancelled - Patient discharged Performed By: #### L 501.9520, L501.6400, L100.0100, L501.5200, L501.4900, L500.4050 #### [facility] [address] [place], [address] HGB Normal 13.0-16.5 [facility] Comment on above: Result Comment: Canc elled via OM: Order cancelled - Patient discharged Performed By: #### L 501.9520, L501.6400, L100.0100, L501.5200, L501.4900, L500.4050 #### [facility] [address] [place], [address] MCH Normal 27.0-32.0 [facility] Comment on above: Result Comment: Canc elled via OM: Order cancelled - Patient discharged Performed By: #### L 501.9520, L501.6400, L100.0100, L501.5200, L501.4900, L500.4050 #### [facility] [address] [place], [address] MCHC Normal 32-36 [facility] Comment on above: Result Comment: Canc elled via OM: Order cancelled - Patient discharged Performed By: #### L 501.9520, L501.6400, L100.0100, L501.5200, L501.4900, L500.4050 #### [facility] [address] [place], [address] MCV Normal 80-94 [facility] Comment on above: Result Comment: Canc elled via OM: Order cancelled - Patient discharged Performed By: #### L 501.9520, L501.6400, L100.0100, L501.5200, L501.4900, L500.4050 #### [facility] [address] [place], [address] NEUT% Normal 47-70 [facility] Comment on above: Result Comment: Canc elled via OM: Order cancelled - Patient discharged Performed By: #### L 501.9520, L501.6400, L100.0100, L501.5200, L501.4900, L500.4050 #### [facility] [address] [place], [address] PLT Normal 150-450 [facility] Comment on above: Result Comment: Canc elled via OM: Order cancelled - Patient discharged Performed By: #### L 501.9520, L501.6400, L100.0100, L501.5200, L501.4900, L500.4050 #### [facility] [address] [place], [address] RBC Normal 4.6-6.2 [facility] Comment on above: Result Comment: Canc elled via OM: Order cancelled - Patient discharged Performed By: #### L 501.9520, L501.6400, L100.0100, L501.5200, L501.4900, L500.4050 #### [facility] [address] [place], [address] RDW CV Normal 11.6-14.6 [facility] Comment on above: Result Comment: Canc elled via OM: Order cancelled - Patient discharged Performed By: #### L 501.9520, L501.6400, L100.0100, L501.5200, L501.4900, L500.4050 #### [facility] [address] [place], [address] RDW SD Normal 35.1-43.9 [facility] Comment on above: Result Comment: Canc elled via OM: Order cancelled - Patient discharged Performed By: #### L 501.9520, L501.6400, L100.0100, L501.5200, L501.4900, L500.4050 #### [facility] [address] [place], [address] WBC Normal 4.4-11.0 [facility] Comment on above: Result Comment: Canc elled via OM: Order cancelled - Patient discharged Performed By: #### L 501.9520, L501.6400, L100.0100, L501.5200, L501.4900, L500.4050 #### [facility] [address] [place], [address] Absolute Lymph 2.05 X10 3/uL Normal 0.83-4.51 [facility] Comment on above: Performed By: #### L 501.9520, L501.6400, L100.0100, L501.5200, L501.4900, L500.4050 #### [facility] [address] [place], [address] Absolute Neut 9.3 X10 3/uL High 2.0-7.7 [facility] Comment on above: Performed By: #### L 501.9520, L501.6400, L100.0100, L501.5200, L501.4900, L500.4050 #### [facility] [address] [place], [address] Basophils/100 WBC (Bld) 0.5 % Normal 0-1 [facility] Comment on above: Performed By: #### L 501.9520, L501.6400, L100.0100, L501.5200, L501.4900, L500.4050 #### [facility] [address] [place], [address] Eosinophils/100 WBC (Bld) 0.2 % Normal 0-5 [facility] Comment on above: Performed By: #### L 501.9520, L501.6400, L100.0100, L501.5200, L501.4900, L500.4050 #### [facility] [address] [place], [address] Erythrocyte distribution width (RBC) [Ratio] 15.4 % High 11.6-14.6 [facility] Comment on above: Performed By: #### L 501.9520, L501.6400, L100.0100, L501.5200, L501.4900, L500.4050 #### [facility] [address] [place], [address] Hematocrit (Bld) [Volume fraction] 49.6 % Normal 40-54 [facility] Comment on above: Performed By: #### L 501.9520, L501.6400, L100.0100, L501.5200, L501.4900, L500.4050 #### [facility] [address] [place], [address] Hemoglobin (Bld) [Mass/Vol] 16.7 g/dL High 13.0-16.5 [facility] Comment on above: Performed By: #### L 501.9520, L501.6400, L100.0100, L501.5200, L501.4900, L500.4050 #### [facility] [address] [place], [address] IG% 0.500 Normal 0.0-0.9 [facility] Comment on above: Result Comment: IG% - Immature Granulocytes (promyelocytes, myelocytes and metamyelocytes) > 1% indicates that a LEFT SHIFT is Present. Performed By: #### L 501.9520, L501.6400, L100.0100, L501.5200, L501.4900, L500.4050 #### [facility] [address] [place], [address] Lymphocytes/100 WBC (Bld) 16.7 % Low 19-41 [facility] Comment on above: Performed By: #### L 501.9520, L501.6400, L100.0100, L501.5200, L501.4900, L500.4050 #### [facility] [address] [place], [address] MCH (RBC) [Entitic mass] 29.6 pg Normal 27.0-32.0 [facility] Comment on above: Performed By: #### L 501.9520, L501.6400, L100.0100, L501.5200, L501.4900, L500.4050 #### [facility] [address] [place], [address] MCHC (RBC) [Mass/Vol] 33.7 g/dL Normal 32-36 [facility] Comment on above: Performed By: #### L 501.9520, L501.6400, L100.0100, L501.5200, L501.4900, L500.4050 #### [facility] [address] [place], [address] MCV (RBC) [Entitic vol] 87.9 fL Normal 80-94 [facility] Comment on above: Performed By: #### L 501.9520, L501.6400, L100.0100, L501.5200, L501.4900, L500.4050 #### [facility] [address] [place], [address] Monocytes/100 WBC (Bld) 6.4 % Normal 0-10 [facility] Comment on above: Performed By: #### L 501.9520, L501.6400, L100.0100, L501.5200, L501.4900, L500.4050 #### [facility] [address] [place], [address] Neutrophils/100 WBC (Bld) 75.7 % High 47-70 [facility] Comment on above: Performed By: #### L 501.9520, L501.6400, L100.0100, L501.5200, L501.4900, L500.4050 #### [facility] [address] [place], [address] Nucleated RBC (Bld) [#/Vol] 0 10*3/uL Normal 0-5 [facility] Comment on above: Performed By: #### L 501.9520, L501.6400, L100.0100, L501.5200, L501.4900, L500.4050 #### [facility] [address] [place], [address] Platelet mean volume (Bld) [Entitic vol] 9.1 fL Normal 6.2-12.0 [facility] Comment on above: Performed By: #### L 501.9520, L501.6400, L100.0100, L501.5200, L501.4900, L500.4050 #### [facility] [address] [place], [address] Platelets (Bld) [#/Vol] 214 10*3/uL Normal 150-450 [facility] Comment on above: Performed By: #### L 501.9520, L501.6400, L100.0100, L501.5200, L501.4900, L500.4050 #### [facility] [address] [place], [address] RBC (Bld) [#/Vol] 5.64 10*6/uL Normal 4.6-6.2 [facility] Comment on above: Performed By: #### L 501.9520, L501.6400, L100.0100, L501.5200, L501.4900, L500.4050 #### [facility] [address] [place], [address] RDW SD 49.1 fl High 35.1-43.9 [facility] Comment on above: Performed By: #### L 501.9520, L501.6400, L100.0100, L501.5200, L501.4900, L500.4050 #### [facility] [address] [place], [address] WBC (Bld) [#/Vol] 12.3 10*3/uL High 4.4-11.0 [facility] Comment on above: Performed By: #### L 501.9520, L501.6400, L100.0100, L501.5200, L501.4900, L500.4050 #### [facility] [address] [place], [address] COVID 19 AG RAPID (MARGI TOPETE T)on 12-09-2024 SARS-CoV-2 (COVID-19) RNA TITI+probe Ql (Unsp spec) *Negative results from patients with symptom onset beyond five days should be treated as presumptive and confirmed by a molecular assay if clinically necessary. Negative results should not be used as the sole basis for treatment or for patient management. SARS-CoV-2 Ag Resp Ql IA.rapid *Positive results do not differentiate between SARS-CoV and SARS-CoV-2. If differentiation of the specific SARS virus is desired an additional sample and an additional order is required. SARS-CoV-2 Ag Resp Ql IA.rapid * This test has not been FDA cleared or approved; the test has been authorized by FDA under an Emergency Use Authorization (EAU) for use by laboratories certified under CLIA that meet the requirements to perform moderate, high, or waived complexity tests. SARS-CoV-2 Ag Resp Ql IA.rapid Normal Reference Range: Negative SARS-CoV-2 (COVID 19) Negative RAPID METHOD [employer] Spring Analyzer QIAN Normal [facility] Comment on above: Performed By: #### L 9000.0810 #### [facility] [address] [facility] [place], [place], [id number] COVID-19 virus antigen assay Ordered By: Odilia Burgos on 12-09-2024 SARS-CoV-2 (COVID-19) Ag IA.rapid Ql (Resp) [facility] Carbon dioxide, total [Moles /volume] in Central venous bloodOrdered By: Odilia Burgos on 12-09-2024 CO2 [Moles/Vol] 18.1 mmol/L Low 21.0-32.0 [facility] Chloride assayOrdered By: Rachel Burgos on 12-09-2024 Chloride [Moles/Vol] 105 mmol/L 98-108 [facility] Comprehensive Metabolic Prof ilon 12-09-2024 Albumin [Mass/Vol] 4.1 g/dL Normal 3.4-4.8 [facility] Comment on above: Performed By: #### L 501.9520, L501.6400, L100.0100, L501.5200, L501.4900, L500.4050 #### [facility] [address] [place], [address] Albumin/Globulin [Mass ratio] 1.3 {ratio} Normal 0.9-2.4 [facility] Comment on above: Performed By: #### L 501.9520, L501.6400, L100.0100, L501.5200, L501.4900, L500.4050 #### [facility] [address] [place], [address] ALK PHOS 77 U/L Normal 40-129 [facility] Comment on above: Performed By: #### L 501.9520, L501.6400, L100.0100, L501.5200, L501.4900, L500.4050 #### [facility] [address] [place], [address] ALT [Catalytic activity/Vol] 60 U/L High <=46 [facility] Comment on above: Performed By: #### L 501.9520, L501.6400, L100.0100, L501.5200, L501.4900, L500.4050 #### [facility] [address] [place], [address] AST [Catalytic activity/Vol] 37 U/L Normal <=37 [facility] Comment on above: Performed By: #### L 501.9520, L501.6400, L100.0100, L501.5200, L501.4900, L500.4050 #### [facility] [address] [place], [address] Bilirubin [Mass/Vol] 0.71 mg/dL Normal 0.00-1.30 [facility] Comment on above: Performed By: #### L 501.9520, L501.6400, L100.0100, L501.5200, L501.4900, L500.4050 #### [facility] [address] [place], [address] BUN/CRE 10.0 RATIO Normal 10-20 [facility] Comment on above: Performed By: #### L 501.9520, L501.6400, L100.0100, L501.5200, L501.4900, L500.4050 #### [facility] [address] [place], [address] Calcium [Mass/Vol] 9.2 mg/dL Normal 7.6-11.0 [facility] Comment on above: Performed By: #### L 501.9520, L501.6400, L100.0100, L501.5200, L501.4900, L500.4050 #### [facility] [address] [place], [address] Chloride [Moles/Vol] 105 mmol/L Normal 98-108 [facility] Comment on above: Performed By: #### L 501.9520, L501.6400, L100.0100, L501.5200, L501.4900, L500.4050 #### [facility] [address] [place], [address] CO2 [Moles/Vol] 18.1 mmol/L Low 21.0-32.0 [facility] Comment on above: Performed By: #### L 501.9520, L501.6400, L100.0100, L501.5200, L501.4900, L500.4050 #### [facility] [address] [place], [address] Creatinine [Mass/Vol] 1.77 mg/dL High 0.70-1.20 [facility] Comment on above: Performed By: #### L 501.9520, L501.6400, L100.0100, L501.5200, L501.4900, L500.4050 #### [facility] [address] [place], [address] ECRCL 67.43 ml/min Normal 50-250 [facility] Comment on above: Performed By: #### L 501.9520, L501.6400, L100.0100, L501.5200, L501.4900, L500.4050 #### [facility] [address] [place], [address] GAP 13 Normal 5-15 [facility] Comment on above: Performed By: #### L 501.9520, L501.6400, L100.0100, L501.5200, L501.4900, L500.4050 #### [facility] [address] [place], [address] GFR/1.73 sq M.predicted among non-blacks MDRD (S/P/Bld) [Vol rate/Area] 42 mL/min/{1.73_m2} Low >60 [facility] Comment on above: Result Comment: mL/m in/1.73m2 CKD-EPI Creatinine Equation (2020) Performed By: #### L 501.9520, L501.6400, L100.0100, L501.5200, L501.4900, L500.4050 #### [facility] [address] [place], [address] Globulin (S) [Mass/Vol] 3.1 g/dL Normal 2.2-4.2 [facility] Comment on above: Performed By: #### L 501.9520, L501.6400, L100.0100, L501.5200, L501.4900, L500.4050 #### [facility] [address] [place], [address] Glucose [Mass/Vol] 157 mg/dL High 70-99 [facility] Comment on above: Performed By: #### L 501.9520, L501.6400, L100.0100, L501.5200, L501.4900, L500.4050 #### [facility] [address] [place], [address] Potassium [Moles/Vol] 4.4 mmol/L Normal 3.3-5.1 [facility] Comment on above: Performed By: #### L 501.9520, L501.6400, L100.0100, L501.5200, L501.4900, L500.4050 #### [facility] [address] [place], [address] Sodium [Moles/Vol] 136 mmol/L Normal 133-145 [facility] Comment on above: Performed By: #### L 501.9520, L501.6400, L100.0100, L501.5200, L501.4900, L500.4050 #### [facility] [address] [place], [address] T PROT 7.3 g/dL Normal 5.9-8.4 [facility] Comment on above: Performed By: #### L 501.9520, L501.6400, L100.0100, L501.5200, L501.4900, L500.4050 #### [facility] [address], [address] Urea nitrogen [Mass/Vol] 18 mg/dL Normal 4-19 [facility] Comment on above: Performed By: #### L 501.9520, L501.6400, L100.0100, L501.5200, L501.4900, L500.4050 #### [facility] [address] [place], [address] Consultation - Cardiologyon 12-09-2024 Consultation - Cardiology [facility] Medical Records Department [address] [place] [address] Consultation - Cardiology 12/09/24 1016 MR#: [id number] Acct: [id number] Name: MARCEL TURCIOS Rep #: [id number] : 1960 64 From: Jesse Urban MD PCP: Dr. Jose David Sims MD Status:ADM IN Location: [place] [address]-1 Assessment Plan Assessment/Plan (1) Elevated troponin: (2) COPD exacerbation: (3) Dyspnea: (4) Atrial fibrillation with rapid ventricular response: PLAN: Plan 1. Elevated troponin. His high-sensitivity troponins is elevated in the 30s. At this time denies chest pain. This is likely all secondary to demand; he will likely benefit from a stress test. Upon review of his records his last stress test was about 4 years ago at which time it appeared normal. Echocardiogram has been ordered results are pending 2. A-fib apparently rate controlled at this time. Continue anticoagulation at this time. Continue Cardizem 3. COPD 4. Nicotine abuse HPI Consult Data Date of Consult: 12/09/24 HPI Narrative Reason for Consultation: A-fib, elevated troponins, HPI Narrative: MARCEL TURCIOS, is a 64 M who presents with shortness of breath and feeling unwell. He was in the ER earlier today and was admitted for COPD exacerbation. He decided to leave AGAINST MEDICAL ADVICE and came back to the ER after his family urged him to come back. Reports ongoing shortness of breath he reports feeling unwell. He reports occasional chest pain. Pain is left-sided nonradiating moderate in intensity. Its all comes on and off. At this time he has no chest pain. He denies fever, denies chills otherwise has no other complaints. He has been admitted. Cardiac medications restarted. Currently getting antibiotics and being treated for COPD exacerbation. [facility] Medical History PTSD (post-traumatic stress disorder) Foraminal stenosis of lumbosacral region ZAN (obstructive sleep apnea) Back pain Anxiety COPD (chronic obstructive pulmonary disease) Radiculitis of leg Lumbar canal stenosis Foraminal stenosis of lumbosacral region Back pain Anxiety COPD (chronic obstructive pulmonary disease) Obstructive sleep apnea Home Medications ???Medication ???Instructions ???Recorded ???Last Taken ???Type albuterol sulfate 1.25 mg/3 mL 1.25 mg inhalation Q4H PRN PRN Unknown History solution for nebulization dyspnea budesonide-formoterol HFA 160 2 inh inhalation Q12H 12/08/24 Unk nown History mcg-4.5 mcg/actuation aerosol inhaler (Breyna) magnesium oxide 400 mg (241.3 mg 400 mg PO BID 12/08/24 Unknown His tory magnesium) tablet Allergy/AdvReac Type Severity Reaction Status Date / Time codeine Allergy Hives Verified 12/08/24 21:09 Iodinated Contrast Media Allergy Hives Verified 12/08/24 21:09 (Iodinated Contrast Media - IV Dye) diclofenac AdvReac Swelling Verified 12/08/24 21:09 metaxalone AdvReac Swelling Verified 12/08/24 21:09 methylphenidate (From AdvReac hallucinati Verified 12/08/24 21:09 Ritalin) ons Phenylpiperazine AdvReac Other Verified 12/08/24 21:09 Antidepressant Tetracyclic Antidepressants AdvReac Other Verified 12/08/24 21:09 Tricyclic Antidepressants AdvReac Other Verified 12/08/24 21:09 and Tricy Family History Other Diabetes Hypertension Surgical History S/P epidural steroid injection Social History household members: family Smoking Status: Current every day smoker tobacco type: cigarettes and e-cigarettes alcohol intake: never substance use type: does not use Physical Exam Narrative General???alert oriented, obese HEENT- normal extraocular movements Neck supple JVD difficult to assess Cardiovascular- normal S1-S2, irregular Pulmonary-decreased air entry bilateral bases Abdomen- soft to palpation, normal sounds Extremities- no edema Musculoskeletal- no tenderness no swelling Neurological -alert oriented Psych -normal affect Risk Stratification Risk Stratification Applicable: No Objective Data Vital Signs: Vital Signs Temp Pulse Resp BP Pulse Ox O2 Del Method FiO2 98.2 F 94 20 H 116/66 93 Room Air 21 12/09/24 06:06 12/09/24 08:35 12/09/24 08:35 12/09/24 06:06 12/09/24 06:06 12/09/24 08:35 12/09/24 06:06 Oxygen Delivery Method Room Air Weight: 367 lb 4.642 oz Body Mass Index (BMI) 48.4 Intake Output: Intake and Output for Last 24 Hours 12/07/24 12/08/24 12/09/24 23:59 23:59 23:59 Intake Total 440 / 440 Output Total 0 / 0 Balance 440 / 440 Lab / Micro Data 12/09/24 05:32 12/09/24 05:32 Labs: Laboratory Results - last 24 hr 0 (more content not included)... Normal [facility] Echo Complete W/ Contraston 12-09-2024 Echo Complete W/ Contrast [facility] [address] [place] [address] Echo Complete W/ Contrast 12/09/24 0939 MR#: [id number] Acct: [id number] Name: MARCEL TURCIOS Rep #: [id number] : 1960 64 From: Jesse Urban MD Attending Dr: Dr. Mis Edmondson MD Status: AD M IN Ordering Dr: Mis Edmondson MD Date: 12/09/24 Location: U Sex: M C Admitted: 12/09/24 Reason For Study Reason For Study: A fib Procedure This was a 2D Doppler, Color Flow transthoracic echocardiogram. The study was technically difficult. The study was technically limited. Exam performed portable in patient room. Left Ventricle Poor windows due to body habitus. Normal left ventricle. The LV ejection fraction is 54 %. Right Ventricle Poorly visualized. Poorly visualized right ventricle. Atria Poorly visualized but grossly appears within normal limits. Poorly visualized but grossly appears within normal limits. Mitral Valve Poorly visualized but grossly appears normal. Poorly visualized mitral valve. No mitral valve insufficiency. Tricuspid Valve Poorly visualized tricuspid valve. Aortic Valve There is no aortic stenosis. Poorly visualized No obvious aortic valve regurgitation. Pulmonic Valve Poorly visualized. Pericardium/Pleural No pericardial effusion. Medication Diluted definity 1.0ml given slow IV push to enhance endocardial definition. MMode/2D Measurements Calculations LVAd ap4: 12.1 cm2 LVAd ap2: 10.7 cm2 SV(MOD-sp4): 13.5 ml LVLd ap4: 5.5 cm LVLd ap2: 4.9 cm SI(MOD-sp4): 4.8 ml/m2 EDV(MOD-sp4): 22.7 ml EDV(MOD-sp2): 19.5 ml EDV(sp4-el): 22.7 ml EDV(sp2-el): 19.9 ml LVAs ap4: 7.0 cm2 LVAs ap2: 6.6 cm2 LVLs ap4: 4.5 cm LVLs ap2: 4.5 cm ESV(MOD-sp4): 9.2 ml ESV(MOD-sp2): 8.1 ml ESV(sp4-el): 9.4 ml ESV(sp2-el): 8.3 ml EF(MOD-sp4): 59.4 % EF(MOD-sp2): 58.4 % EF(sp4-el): 58.8 % SV(MOD-sp2): 11.4 ml SV(sp4-el): 13.3 ml SI(MOD-sp2): 4.1 ml/m2 Doppler Measurements Calculations MV E max ele: 54.7 cm/sec Lat Peak E' Ele: 10.2 cm/sec Med Peak E' Ele: 8.6 cm/sec MV A max ele: 66.4 cm/sec E/E' lat: 5.4 E/E' med: 6.4 MV E/A: 0.82 Ao V2 max: 149.0 cm/sec LV V1 max: 110.7 cm/sec Ao max P.9 mmHg LV V1 max P.9 mmHg ECHO/Echo Complete W/ Contrast Interpretation Summary Poor windows due to body habitus The LV ejection fraction is 55 %. Poorly visualized mitral valve No mitral valve insufficiency. Poorly visualized tricuspid valve Poorly visualized right ventricle Ordering Physician: Mis Edmondson Referring Physician: Jose David Sims MD Performed By: Erin Weinstein RDCS 12/09/24 1225 Date Jesse Urban MD CC: Dr. Jose David Sims MD; Dr. Mis Edmondson MD Date Dictated: 12/09/24938 Date Transcribed: 12/09/241224 Mill Set Up: Signed Normal [facility] Echocardiogram study reportO rdered By: Jesse Urban on 12-09-[address] [facility] [address] [place] [address] Echo Complete W/ Contrast 12/09/24938 MR#: [id number] Acct: [id number] Name: MARCEL TURCIOS Rep #:[id number] : 1960 64 From: Jesse Urban MD Attending Dr: Dr. Mis Edmondson MD Status: ADM IN Ordering Dr: Mis Edmondson MD Date: 12/09/24 Location: [facility] Sex: M C Admitted: 12/09/24 Reason For Study Reason For Study: A fib Procedure This was a 2D Doppler, Color Flow transthoracic echocardiogram. The study was technically difficult. The study was technically limited. Exam performed portable in patient room. Left Ventricle Poor windows due to body habitus. Normal left ventricle. The LV ejection fraction is 55 %. Right Ventricle Poorly visualized. Poorly visualized right ventricle. Atria Poorly visualized but grossly appears within normal limits. Poorly visualized but grossly appears within normal limits. Mitral Valve Poorly visualized but grossly appears normal. Poorly visualized mitral valve. Nomitral valve insufficiency. Tricuspid Valve Poorly visualized tricuspid valve. Aortic Valve There is no aortic stenosis. Poorly visualized No obvious aortic valve regurgitation. Pulmonic Valve Poorly visualized. Pericardium/Pleural No pericardial effusion. Medication Diluted definity 1.0ml given slow IV push to enhance endocardial definition. MMode/2D Measurements & Calculations LVAd ap4: 12.1 cm2 LVAd ap2: 10.7 cm2 SV(MOD-sp4): 13.5 ml LVLd ap4: 5.5 cm LVLd ap2: 4.9 cm SI(MOD-sp4): 4.8 ml/m2 EDV(MOD-sp4): 22.7 ml EDV(MOD-sp2): 19.5 ml EDV(sp4-el): 22.7 ml EDV(sp2-el): 19.9 ml LVAs ap4: 7.0 cm2 LVAs ap2: 6.6 cm2 LVLs ap4: 4.5 cm LVLs ap2: 4.5 cm ESV(MOD-sp4): 9.2 ml ESV(MOD-sp2): 8.1 ml ESV(sp4-el): 9.4 ml ESV(sp2-el): 8.3 ml EF(MOD-sp4): 59.4 % EF(MOD-sp2): 58.4 % EF(sp4-el): 58.8 % SV(MOD-sp2): 11.4 ml SV(sp4-el): 13.3 ml SI(MOD-sp2): 4.1 ml/m2 Doppler Measurements & Calculations MV E max ele: 54.7 cm/sec Lat Peak E' Ele: 10.2 cm/sec Med Peak E' Ele: 8.6 cm/sec MV A max ele: 66.4 cm/sec E/E' lat: 5.4 E/E' med: 6.4 MV E/A: 0.82 Ao V2 max: 149.0 cm/sec LV V1 max: 110.7 cm/sec Ao max P.9 mmHg LV V1 max P.9 mmHg ECHO/Echo Complete W/ Contrast Interpretation Summary Poor windows due to body habitus The LV ejection fraction is 55 %. Poorly visualized mitral valve No mitral valve insufficiency. Poorly visualized tricuspid valve Poorly visualized right ventricle Ordering Physician: Mis Edmondson Referring Physician: Jose David Sims MD Performed By: Erin Weinstein RDCS 12/09/24 1225 Date _ Jesse Urban MD CC: Dr. Jose David Sims MD; Dr. Mis Edmondson MD ~ Date Dictated: 12/09/24 0939 Date Transcribed: 12/09/24 1225 Mill Set Up: Signed [facility] Eosinophil percentageOrdered By: Odilia Burgos on 12-09-2024 Eosinophils/100 WBC (Bld) 0.2 % 0-5 [facility] Erythrocyte distribution wid th ratioOrdered By: Odilia Burgos on 12-09-2024 Erythrocyte distribution width (RBC) [Ratio] 15.4 % High 11.6-14.6 [facility] Erythrocyte distribution wid th standard deviationOrdered By: Odilia Burgos on 12-09-2024 Erythrocyte distribution width (RBC) [Ratio] 49.1 fl High 35.1-43.9 [facility] Glomerular filtration rate ( GFR) estimation/1.73 sq m using serum, plasma, or whole bOrdered By: Odilia Burgos on 12-09-2024 GFR/1.73 sq M.predicted among non-blacks MDRD (S/P/Bld) [Vol rate/Area] 42 mL/min/{1.73_m2} Low >60 [facility] Comment on above: mL/min/1.73m2 CKD-EP I Creatinine Equation (2020) Gram Stainon 12-09-2024 GS Acceptable Specimen? No (>25 Epithelial cells per/lpf) Gram Stain 3+ Gram positive cocci 2+ Gram positive rods Rare Gram negative diplococci 2+ Epithelial cells Rare White Blood Cells Specimen is mostly saliva and as such may not represent an accurate assessment of the patients' pulmonary/respiratory condition. CALLED TO [facility] 12/09/24 1447 Heather Thao. Normal [facility] Comment on above: Performed By: #### L 501.9520, L501.6400, L100.0100, L501.5200, L501.4900, L500.4050 #### [facility] [address] [place], [place], [id number] Gram stainOrdered By: Marciano Burgos on 12-09-2024 Microscopic observation Gram stain Nom (Unsp spec) [facility] H AND P Exam - Hospitaliston 12-09-2024 H&P Exam - Hospitalist [facility] Medical Records Department [address] [place] [address] H P Exam - Hospitalist 12/09/24 0058 MR#: [id number] Acct: [id number] Name: MARCEL TURCIOS Rep #: [id number] : 1960 64 From: Odilia Burgos DO PCP: Dr. Jose David Sims MD Status:ADM IN [facility] - [facility] General Date of Admission: 12/09/24 Date of Service: 12/09/24 Chief Complaint: Shortness of breath HPI Narrative MARCEL TURCIOS, is a 64 M who presented to the emergency department at [facility] on 12/08/2024 with a chief complaint of shortness of breath. Patient was here earlier on 12/08/2024 and due to his PTSD signed out AGAINST MEDICAL ADVICE. He came back due to worsening shortness of breath. He has known history of atrial fibrillation and was diagnosed about a year ago. He states he was discharged on metoprolol and it made him gain a lot of weight so he stopped taking it. He is also no longer anticoagulated so essentially is untreated. He was found to be in A-fib with RVR on his initial presentation on the . Initially he presented with worsening shortness of breath and palpitations. He indicated that it been going on for about a year. I suspect that is all related to his A-fib diagnosis. Patient did have orthopnea and wheezing but no PND. He still smokes about 4 packs of cigarettes daily. He denies any cough, fever, or chills. He said no chest pain. He has not had no nausea or vomiting or diaphoresis. He was initially admitted to PCU and was treated for acute exacerbation of COPD and A-fib with RVR however he left. He came back after family convinced him to come back and be evaluated and treated. Vital signs on presentation of his second visit to the emergency department on the showed a temperature of 98.3, heart rate 125, respiratory was 38 with short labored breathing and utilization of accessory muscles was present and he is in intermittent gasping. Blood pressure was 164/117 and pulse ox was 97% on room air. He was placed on his home BiPAP. This did appear to make him more comfortable. CBC on presentation showed a leukocytosis with white count of 20.3. His hemoglobin is elevated 18.4. We obtained an ABG which showed a pH of 7.35 a pCO2 of 43.5 and a pO2 of 71 on his home BiPAP at 21% with an estimated sats of 93%. Chemistry panel showed new anion gap metabolic acidosis and TAINA. Serum creatinine was 1.5 and when he presented earlier on the it was 1.01. Initial troponin was 36 with a delta of 34. Procalcitonin was obtained and found to be 0.15. EKG shows A-fib with RVR. Chest x-ray was suggestive of a right lower lobe opacity and mild cardiomegaly. A CT of the chest showed subsegmental atelectasis or consolidation of the lingula. He will be admitted to PCU and we will put him on oral Cardizem with hold parameters for his heart rate and start Eliquis. Given his white count, possible infiltrate on CT, and respiratory distress I will put him on Zosyn. [facility] Medical History PTSD (post-traumatic stress disorder) Foraminal stenosis of lumbosacral region ZAN (obstructive sleep apnea) Back pain Anxiety COPD (chronic obstructive pulmonary disease) Radiculitis of leg Lumbar canal stenosis Foraminal stenosis of lumbosacral region Back pain Anxiety COPD (chronic obstructive pulmonary disease) Obstructive sleep apnea Home Medications ???Medication ???Instructions ???Recorded ???Last Taken ???Type albuterol sulfate 1.25 mg/3 mL 1.25 mg inhalation Q4H PRN PRN Unknown History solution for nebulization dyspnea budesonide-formoterol HFA 160 2 inh inhalation Q12H 12/08/24 Unk nown History mcg-4.5 mcg/actuation aerosol inhaler (Breyna) magnesium oxide 400 mg (241.3 mg 400 mg PO BID 12/08/24 Unknown His tory magnesium) tablet Allergy/AdvReac Type Severity Reaction Status Date / Time codeine Allergy Hives Verified 12/08/24 21:09 Iodinated Contrast Media Allergy Hives Verified 12/08/24 21:09 (Iodinated Contrast Media - IV Dye) diclofenac AdvReac Swelling Verified 12/08/24 21:09 metaxalone AdvReac Swelling Verified 12/08/24 21:09 methylphenidate (From AdvReac hallucinati Verified 12/08/24 21:09 Ritalin) ons Phenylpiperazine AdvReac Other Verified 12/08/24 21:09 Antidepressant Tetracyclic Antidepressants AdvReac Other Verified 12/08/24 21:09 Tricyclic Antidepressants AdvReac Other Verified 12/08/24 21:09 and Tricy Family History Other Diabetes Hypertension Surgical History S/P epidural steroid injection Social History household members: family Smoking Status: Current every day smoker to (more content not included)... Normal [facility] Hematocrit Auto (Bld) [Volum e fraction]Ordered By: Odilia Burgos on 12-09-2024 Hematocrit (Bld) [Volume fraction] 49.6 % 40-54 [facility] Hemoglobin measurementOrdere d By: Odilia Burgos on 12-09-2024 Hemoglobin (Bld) [Mass/Vol] 16.7 g/dL High 13.0-16.5 [facility] Hyaline casts LM.LPF (Urine sed) [#/Area]Ordered By: Odiila Burgos on 12-09-2024 Hyaline casts (Urine sed) [#/Area] 0 /[LPF] 0-5 [facility] Immature granulocytes/100 WB C Auto (Bld)Ordered By: Odilia Burgos on 12-09-2024 Immature granulocytes/100 WBC (Bld) 0.500 % 0.0-0.9 [facility] Comment on above: IG% - Immature Granu locytes (promyelocytes, myelocytes and metamyelocytes) > 1% indicates that a LEFT SHIFT is Present. Ketones Test strip Ql (U)Ord ered By: Odilia Burgos on 12-09-2024 Ketones Ql (U) 5 mg/dl High Negative [facility] L499.0042on 12-09-2024 Trop T High Sen 34 ng/L High <=22 [facility] Comment on above: Performed By: #### L 501.9520, L501.6400, L100.0100, L501.5200, L501.4900, L500.4050 #### [facility] [address] [place], [address] L509.7001on 12-09-2024 Procalcitonin 0.15 ng/mL High <=0.10 [facility] Comment on above: Result Comment: Inte rpretation: <0.10-0.25 ng/mL: Antibiotic therapy discouraged. Bacterial infection unlikely. 0.25-0.50 ng/mL: Antibiotic therapy encouraged. Bacterial infection possible. >0.50 ng/mL: Antibiotic therapy strongly encouraged. Suggestive of presence of bacterial infection. PCT should always be interpreted in the clinical context of the patient. Therefore, clinicians should use the PCT results in conjunction with other laboratory findings and clinical signs of the patient. Performed By: #### L 501.9520, L501.6400, L100.0100, L501.5200, L501.4900, L500.4050 #### [facility] [address] [place], [place], [id number] Laboratory - Chemistry and C hemistry - challengeOrdered By: Odilia Burgos on 12-09-2024 AST [Catalytic activity/Vol] 37 U/L <38 [facility] Lactic Acidon 12-09-2024 Lactate [Moles/Vol] 1.2 mmol/L Normal 0.0-2.0 [facility] Comment on above: Order Comment: Y Performed By: #### L 501.9520, L501.6400, L100.0100, L501.5200, L501.4900, L500.4050 #### [facility] [address] [place], [address] MCV (mean corpuscular volume ) determinationOrdered By: Odilia Burgos on 12-09-2024 MCV (RBC) [Entitic vol] 87.9 fL 80-94 [facility] Magnesiumon 12-09-2024 Magnesium [Mass/Vol] 2.1 mg/dL Normal 1.5-2.2 [facility] Comment on above: Performed By: #### L 501.9520, L501.6400, L100.0100, L501.5200, L501.4900, L500.4050 #### [facility] [place], [address] Magnesium measurement (mass/ volume)Ordered By: Odilia Burgos on 12-09-2024 Magnesium (Unsp spec) [Mass/Vol] 2.1 mg/dL 1.5-2.2 [facility] Mean corpuscular hemoglobin (MCH) determinationOrdered By: Odilia Burgos on 12-09-2024 MCH (RBC) [Entitic mass] 29.6 pg 27.0-32.0 [facility] Mean corpuscular hemoglobin concentration (MCHC) determinationOrdered By: Odilia Burgos on 12-09-2024 MCHC (RBC) [Mass/Vol] 33.7 g/dL 32-36 [facility] Mean platelet volume determi nationOrdered By: Odilia Burgos on 12-09-2024 Platelet mean volume (Bld) [Entitic vol] 9.1 fL 6.2-12.0 [facility] Measurement, pHOrdered By: Rosario Georges on 12-09-2024 pH (Unsp spec) 7.35 [pH] 7.35-7.45 [facility] Microbial respiratory cultur eOrdered By: Odilia Burgos on 12-09-2024 Microorganism identified Cx Nom (Unsp spec) [facility] Microscopic analysis of urin e for red blood cells (RBC)Ordered By: Odilia Burgos on 12-09-2024 Microscopic analysis of urine for red blood cells (RBC) 0-5 SEEN /hpf 0-5 [facility] Monocyte percentageOrdered B y: Odilia Burgos on 12-09-2024 Monocytes/100 WBC (Bld) 6.4 % 0-10 [facility] Mucus LM Ql (Urine sed)Order ed By: Odilia Burgos on 12-09-2024 Mucus Ql (Urine sed) 0 SEEN /hpf [facility] Neutrophil percentageOrdered By: Odilia Burgos on 12-09-2024 Neutrophils/100 WBC (Bld) 75.7 % High 47-70 [facility] Nitrite Test strip Ql (U)Ord ered By: Odilia Burgos on 12-09-2024 Nitrite Ql (U) Negative Negative [facility] No Panel InformationOrdered By: Jose David Georges on 12-09-2024 Blood Gas Clinical Comments Home unit: 11/11 21% [facility] Blood Gas Sample Site R Brach [facility] Blood Gas Specimen Type ART [facility] Blood Gas Vent Mode Not entered [facility] Oxygen Delivery Device BiPAP [facility] Nucleated red blood cell per centageOrdered By: Odilia Burgos on 12-09-2024 Nucleated RBC/100 WBC (Bld) [Ratio] 0 % 0-5 [facility] Phosphoruson 12-09-2024 Phosphate [Mass/Vol] 2.6 mg/dL Low 2.7-4.5 [facility] Comment on above: Performed By: #### L 501.9520, L501.6400, L100.0100, L501.5200, L501.4900, L500.4050 #### [facility] [address] [place], [address] Platelet countOrdered By: Rachel Burgos on 12-09-2024 Platelets (Bld) [#/Vol] 214 10*3/uL 150-450 [facility] Potassium measurement (mass/ volume)Ordered By: Odilia Burgos on 12-09-2024 Potassium (Unsp spec) [Mass/Vol] 4.4 mmol/L 3.3-5.1 [facility] Protein Test strip Ql (U)Ord ered By: Odilia Burgos on 12-09-2024 Protein Ql (U) 100 mg/dl High Negative [facility] RBC Auto (Bld) [#/Vol]Ordere d By: Odilia Burgos on 12-09-2024 RBC (Bld) [#/Vol] 5.64 10*6/uL 4.6-6.2 [facility] RESPIRATORY PANEL MOLECULARo n 12-09-2024 RP PANEL ADENOVIRUS Not Detected INFLUENZA A Not Detected INFLUENZA A (SUBTYPE H1) Not Detected INFLUENZA A (SUBTYPE H3) Not Detected INFLUENZA B Not Detected HUMAN METAPHNEUMO Not Detected PARAINFLUENZA 1 Not Detected PARAINFLUENZA 2 Not Detected PARAINFLUENZA 3 Not Detected PARAINFLUENZA 4 Not Detected RHINOVIRUS Not Detected RSV A Not Detected RSV B Not Detected Normal [facility] Comment on above: Performed By: #### L 501.9520, L501.6400, L100.0100, L501.5200, L501.4900, L500.4050 #### [facility] [address] [place], [place], [id number] Respiratory Cultureon 2024 RESPC Not performed Normal [facility] Comment on above: Performed By: #### L 501.9520, L501.6400, L100.0100, L501.5200, L501.4900, L500.4050 #### [facility] [address] [place], [place], [id number] Respiratory pathogens detect ion panel by molecular detection methodOrdered By: Odilia Burgos on 12-09-2024 Respiratory pathogens DNA and RNA panel TITI+probe (Resp) [facility] Serum creatinine measurement (mass/volume)Ordered By: Odilia Burgos on 12-09-2024 Creatinine [Mass/Vol] 1.77 mg/dL High 0.70-1.20 [facility] Serum globulin measurementOr dered By: Odilia Burgos on 12-09-2024 Globulin (S) [Mass/Vol] 3.1 g/dL 2.2-4.2 [facility] Serum glucose measurement (m ass/volume)Ordered By: Odilia Burgos on 12-09-2024 Glucose [Mass/Vol] 157 mg/dL High 70-99 [facility] Serum or plasma alanine crawford otransferase (ALT) measurementOrdered By: Odilia Burgos on 12-09-2024 ALT [Catalytic activity/Vol] 60 U/L High <47 [facility] Serum or plasma albumin jarrod urement (mass/volume)Ordered By: Odilia Burgos on 12-09-2024 Albumin [Mass/Vol] 4.1 g/dL 3.4-4.8 [facility] Serum or plasma albumin/glob ulin mass ratioOrdered By: Odilia Burgos on 12-09-2024 Albumin/Globulin [Mass ratio] 1.3 {ratio} 0.9-2.4 [facility] Serum or plasma alkaline christina sphatase measurementOrdered By: Odilia Burgos on 12-09-2024 ALP [Catalytic activity/Vol] 77 U/L 40-129 [facility] Serum or plasma calcium jarrod urement (mass/volume)Ordered By: Odilia Burgos on 12-09-2024 Calcium [Mass/Vol] 9.2 mg/dL 7.6-11.0 [facility] Serum or plasma urea nitroge n measurement (mass/volume)Ordered By: Odilia Burgos on 12-09-2024 Urea nitrogen [Mass/Vol] 18 mg/dL 4-19 [facility] Sodium levelOrdered By: Brooke Burgos on 12-09-2024 Sodium [Moles/Vol] 136 mmol/L 133-145 [facility] Squamous epithelial cells de tection in urine sediment by light microscopyOrdered By: Odilia Burgos on 12-09-2024 Epithelial cells.squamous LM Ql (Urine sed) 0-5 SEEN /hpf 0-5 [facility] TSH DL <= 0.005 mIU/L QnOrde red By: Odilia Burgos on 12-09-2024 TSH Qn 3.020 uIU/mL 0.300-4.20 0 [facility] Thyroid Stim Hormone (TSH)on 12-09-2024 TSH 3.020 uIU/mL Normal 0.300-4.20 0 [facility] Comment on above: Performed By: #### L 501.9520, L501.6400, L100.0100, L501.5200, L501.4900, L500.4050 #### [facility] [address] [place], [place], [address] Total carbon dioxide measure mentOrdered By: Jose David Georges on 12-09-2024 CO2 [Moles/Vol] 25 mmol/L [facility] Total proteinOrdered By: Denise Burgos on 12-09-2024 Protein [Mass/Vol] 7.3 g/dL 5.9-8.4 [facility] Urinalysis, Completeon 12-09 RBC 0-5 SEEN Normal 0-5 [facility] Comment on above: Order Comment: CLEAN CATCH Performed By: #### L 501.9520, L501.6400, L100.0100, L501.5200, L501.4900, L500.4050 #### [facility] [address] [place], [address] AMORPHOUS 1+ Normal [facility] Comment on above: Order Comment: CLEAN CATCH Performed By: #### L 501.9520, L501.6400, L100.0100, L501.5200, L501.4900, L500.4050 #### [facility] [address] [place], [address] CAST,FINE GRAN 5-10 SEEN Normal 0-5 [facility] Comment on above: Order Comment: CLEAN CATCH Performed By: #### L 501.9520, L501.6400, L100.0100, L501.5200, L501.4900, L500.4050 #### [facility] [address] [place], [address] CAST,HYALINE 0-5 SEEN Normal 0-5 [facility] Comment on above: Order Comment: CLEAN CATCH Performed By: #### L 501.9520, L501.6400, L100.0100, L501.5200, L501.4900, L500.4050 #### [facility] [address] [place], [address] EPI,SQUAMOUS 0-5 SEEN Normal 0-5 [facility] Comment on above: Order Comment: CLEAN CATCH Performed By: #### L 501.9520, L501.6400, L100.0100, L501.5200, L501.4900, L500.4050 #### [facility] [address] [place], [address] WBC 5-10 SEEN Normal 0-5 [facility] Comment on above: Order Comment: CLEAN CATCH Performed By: #### L 501.9520, L501.6400, L100.0100, L501.5200, L501.4900, L500.4050 #### [facility] [address] [place], [address] BACTERIA 0 SEEN Normal None Seen [facility] Comment on above: Order Comment: CLEAN CATCH Performed By: #### L 501.9520, L501.6400, L100.0100, L501.5200, L501.4900, L500.4050 #### [facility] [address] [place], [address] Mucus Ql (Urine sed) 0 SEEN Normal [facility] Comment on above: Order Comment: CLEAN CATCH Performed By: #### L 501.9520, L501.6400, L100.0100, L501.5200, L501.4900, L500.4050 #### [facility] [address] [place], [address] Urine clarityOrdered By: Denise Burgos on 12-09-2024 Clarity (U) Sl. Cloudy Clear [facility] Urine color determinationOrd ered By: Odilia Burgos on 12-09-2024 Color (U) Yellow Yellow [facility] Urine cultureOrdered By: Denise Burgos on 12-09-2024 Bacteria identified Cx Nom (U) Culture exhibits no growth. [facility] Urine glucose detectionOrder ed By: Odilia Burgos on 12-09-2024 Glucose Ql (U) 50 mg/dl High Normal [facility] Urine leukocyte esterase det ection by dipstickOrdered By: Odilia Burgos on 12-09-2024 Leukocyte esterase Test strip Ql (U) 25 /ul High Negative [facility] Urine pHOrdered By: Odilia Burgos on 12-09-2024 pH (U) 5.0 [pH] 5.0 - 8.0 [facility] Urine sediment bacteria coun t by microscopy (number/high power field)Ordered By: Odilia Burgos on 12-09-2024 Bacteria LM.HPF (Urine sed) [#/Area] 0 /[HPF] None Seen [facility] Urine sediment fine granular cast count by microscopy (number/low power field)Ordered By: Odilia Burgos on 12-09-2024 Fine Granular Casts LM.LPF (Urine sed) [#/Area] 5-10 SEEN /lpf 0-5 [facility] Urine specific gravity measu rementOrdered By: Odilia Burgos on 12-09-2024 Specific gravity (U) [Rel density] 1.025 1.002-1.03 0 [facility] Urine urobilinogen measureme ntOrdered By: Odilia Burgos on 12-09-2024 Urobilinogen Ql (U) 1 mg/dl High Normal [facility] White blood cell (WBC) count Ordered By: Odilia Burgos on 12-09-2024 WBC (Bld) [#/Vol] 12.3 10*3/uL High 4.4-11.0 [facility] White blood cell countOrdere d By: Odilia Burgos on 12-09-2024 White blood cell count 5-10 SEEN /hpf 0-5 [facility] Absolute lymphocyte countOrd ered By: Martha Mead on 12-08-2024 Lymphocytes Auto (Unsp spec) [#/Vol] 3.55 10*3/uL 0.83-4.51 [facility] Lymphocytes Auto (Unsp spec) [#/Vol] 1.97 10*3/uL 0.83-4.51 [facility] Absolute neutrophil countOrd ered By: Martha Mead on 12-08-2024 Neutrophils (Bld) [#/Vol] 14.6 10*3/uL High 2.0-7.7 [facility] Neutrophils (Bld) [#/Vol] 6.3 10*3/uL 2.0-7.7 [facility] Anion gap in Serum or Plasma Ordered By: Martha Mead on 12-08-2024 Anion gap [Moles/Vol] 20 mmol/L High 5-15 [facility] Anion gap [Moles/Vol] 14 mmol/L 5-15 [facility] Automated lymphocyte count a s percentage of total leukocytesOrdered By: Martha Mead on 12-08-2024 Lymphocytes/100 WBC Auto (Unsp spec) 17.5 % Low 19-41 [facility] Lymphocytes/100 WBC Auto (Unsp spec) 21.7 % - [facility] BUN/creatinine ratioOrdered By: Martha Mead on 12-08-2024 Urea nitrogen/Creatinine [Mass ratio] 8.4 mg/mg Low - [facility] Urea nitrogen/Creatinine [Mass ratio] 9.9 mg/mg Low - [facility] Basic Metabolic Profile (BMP )on 12-08-2024 BUN/CRE 8.4 RATIO Low 04-16 [facility] Comment on above: Performed By: #### L 501.9520, L501.6400, L100.0100, L501.5200, L501.4900, L500.4050 #### [facility] [address] [place], [address] Calcium [Mass/Vol] 10.2 mg/dL Normal 7.6-11.0 [facility] Comment on above: Performed By: #### L 501.9520, L501.6400, L100.0100, L501.5200, L501.4900, L500.4050 #### [facility] [address] [place], [address] Chloride [Moles/Vol] 102 mmol/L Normal 98-108 [facility] Comment on above: Performed By: #### L 501.9520, L501.6400, L100.0100, L501.5200, L501.4900, L500.4050 #### [facility] [address] [place], [address] CO2 [Moles/Vol] 17.3 mmol/L Low 21.0-32.0 [facility] Comment on above: Performed By: #### L 501.9520, L501.6400, L100.0100, L501.5200, L501.4900, L500.4050 #### [facility] [address] [place], [address] Creatinine [Mass/Vol] 1.50 mg/dL High 0.70-1.20 [facility] Comment on above: Performed By: #### L 501.9520, L501.6400, L100.0100, L501.5200, L501.4900, L500.4050 #### [facility] [address] [place], [address] ECRCL 80.71 ml/min Normal 50-250 [facility] Comment on above: Performed By: #### L 501.9520, L501.6400, L100.0100, L501.5200, L501.4900, L500.4050 #### [facility] [address] [place], [address] GAP 20 High 5-15 [facility] Comment on above: Performed By: #### L 501.9520, L501.6400, L100.0100, L501.5200, L501.4900, L500.4050 #### [facility] [address] [place], [address] GFR/1.73 sq M.predicted among non-blacks MDRD (S/P/Bld) [Vol rate/Area] 51 mL/min/{1.73_m2} Low >60 [facility] Comment on above: Result Comment: mL/m in/1.73m2 CKD-EPI Creatinine Equation (2020) Performed By: #### L 501.9520, L501.6400, L100.0100, L501.5200, L501.4900, L500.4050 #### [facility] [address] [place], [address] Glucose [Mass/Vol] 157 mg/dL High 70-99 [facility] Comment on above: Performed By: #### L 501.9520, L501.6400, L100.0100, L501.5200, L501.4900, L500.4050 #### [facility] [address] [place], [address] Potassium [Moles/Vol] 4.1 mmol/L Normal 3.3-5.1 [facility] Comment on above: Performed By: #### L 501.9520, L501.6400, L100.0100, L501.5200, L501.4900, L500.4050 #### [facility] [address] [place], [address] Sodium [Moles/Vol] 139 mmol/L Normal 133-145 [facility] Comment on above: Performed By: #### L 501.9520, L501.6400, L100.0100, L501.5200, L501.4900, L500.4050 #### [facility] [address] [place], [address] Urea nitrogen [Mass/Vol] 13 mg/dL Normal 4-19 [facility] Comment on above: Performed By: #### L 501.9520, L501.6400, L100.0100, L501.5200, L501.4900, L500.4050 #### [facility] [address] [place], [address] BUN/CRE 9.9 RATIO Low 10-20 [facility] Comment on above: Performed By: #### L 501.9520, L501.6400, L100.0100, L501.5200, L501.4900, L500.4050 #### [facility] [address] [place], [address] Calcium [Mass/Vol] 9.4 mg/dL Normal 7.6-11.0 [facility] Comment on above: Performed By: #### L 501.9520, L501.6400, L100.0100, L501.5200, L501.4900, L500.4050 #### [facility] [address] [place], [address] Chloride [Moles/Vol] 103 mmol/L Normal 98-108 [facility] Comment on above: Performed By: #### L 501.9520, L501.6400, L100.0100, L501.5200, L501.4900, L500.4050 #### [facility] [address] [place], [address] CO2 [Moles/Vol] 19.0 mmol/L Low 21.0-32.0 [facility] Comment on above: Performed By: #### L 501.9520, L501.6400, L100.0100, L501.5200, L501.4900, L500.4050 #### [facility] [address] [place], [address] Creatinine [Mass/Vol] 1.01 mg/dL Normal 0.70-1.20 [facility] Comment on above: Performed By: #### L 501.9520, L501.6400, L100.0100, L501.5200, L501.4900, L500.4050 #### [facility] [address] [place], [address] ECRCL 120.32 ml/min Normal 50-250 [facility] Comment on above: Performed By: #### L 501.9520, L501.6400, L100.0100, L501.5200, L501.4900, L500.4050 #### [facility] [address] [place], [address] GAP 14 Normal 5-15 [facility] Comment on above: Performed By: #### L 501.9520, L501.6400, L100.0100, L501.5200, L501.4900, L500.4050 #### [facility] [address] [place], [address] GFR/1.73 sq M.predicted among non-blacks MDRD (S/P/Bld) [Vol rate/Area] 83 mL/min/{1.73_m2} Normal >60 [facility] Comment on above: Result Comment: mL/m in/1.73m2 CKD-EPI Creatinine Equation (2020) Performed By: #### L 501.9520, L501.6400, L100.0100, L501.5200, L501.4900, L500.4050 #### [facility] [address] [place], [address] Glucose [Mass/Vol] 135 mg/dL High 70-99 [facility] Comment on above: Performed By: #### L 501.9520, L501.6400, L100.0100, L501.5200, L501.4900, L500.4050 #### [facility] [address] [place], [address] Potassium [Moles/Vol] 4.2 mmol/L Normal 3.3-5.1 [facility] Comment on above: Result Comment: Hemo lysis present, Results??could be affected. ?? Performed By: #### L 501.9520, L501.6400, L100.0100, L501.5200, L501.4900, L500.4050 #### [facility] [address] [place], [address] Sodium [Moles/Vol] 136 mmol/L Normal 133-145 [facility] Comment on above: Performed By: #### L 501.9520, L501.6400, L100.0100, L501.5200, L501.4900, L500.4050 #### [facility] [address] [place], [address] Urea nitrogen [Mass/Vol] 10 mg/dL Normal 4-19 [facility] Comment on above: Performed By: #### L 501.9520, L501.6400, L100.0100, L501.5200, L501.4900, L500.4050 #### [facility] [address] [place], [address] Basophil percentageOrdered B y: Martha Mead on 12-08-2024 Basophils/100 WBC (Bld) 0.8 % 0-1 [facility] Basophils/100 WBC (Bld) 0.9 % 0-1 [facility] Blood manual differential co mment interpretation (narrative result)Ordered By: Martha Mead on 12-08-2024 Manual differential comment Cesar (Bld) [Interp] SCANNED [facility] CBC W/Diff, Automatedon 11-26 SMEAR COMMENT SCANNED Normal [facility] Comment on above: Performed By: #### L 501.9520, L501.6400, L100.0100, L501.5200, L501.4900, L500.4050 #### [facility] [address] [place], [address] Absolute Lymph 1.97 X10 3/uL Normal 0.83-4.51 [facility] Comment on above: Performed By: #### L 501.9520, L501.6400, L100.0100, L501.5200, L501.4900, L500.4050 #### [facility] [address] [place], [address] Absolute Neut 6.3 X10 3/uL Normal 2.0-7.7 [facility] Comment on above: Performed By: #### L 501.9520, L501.6400, L100.0100, L501.5200, L501.4900, L500.4050 #### [facility] [address] [place], [address] Basophils/100 WBC (Bld) 0.9 % Normal 0-1 [facility] Comment on above: Performed By: #### L 501.9520, L501.6400, L100.0100, L501.5200, L501.4900, L500.4050 #### [facility] [address] [place], [address] Eosinophils/100 WBC (Bld) 1.7 % Normal 0-5 [facility] Comment on above: Performed By: #### L 501.9520, L501.6400, L100.0100, L501.5200, L501.4900, L500.4050 #### [facility] [address] [place], [address] Erythrocyte distribution width (RBC) [Ratio] 15.1 % High 11.6-14.6 [facility] Comment on above: Performed By: #### L 501.9520, L501.6400, L100.0100, L501.5200, L501.4900, L500.4050 #### [facility] [address] [place], [address] Hematocrit (Bld) [Volume fraction] 50.3 % Normal 40-54 [facility] Comment on above: Performed By: #### L 501.9520, L501.6400, L100.0100, L501.5200, L501.4900, L500.4050 #### [facility] [address] [place], [address] Hemoglobin (Bld) [Mass/Vol] 17.2 g/dL High 13.0-16.5 [facility] Comment on above: Performed By: #### L 501.9520, L501.6400, L100.0100, L501.5200, L501.4900, L500.4050 #### [facility] [address] [place], [address] IG% 0.600 Normal 0.0-0.9 [facility] Comment on above: Result Comment: IG% - Immature Granulocytes (promyelocytes, myelocytes and metamyelocytes) > 1% indicates that a LEFT SHIFT is Present. Performed By: #### L 501.9520, L501.6400, L100.0100, L501.5200, L501.4900, L500.4050 #### [facility] [address] [place], [address] Lymphocytes/100 WBC (Bld) 21.7 % Normal 19-41 [facility] Comment on above: Performed By: #### L 501.9520, L501.6400, L100.0100, L501.5200, L501.4900, L500.4050 #### [facility] [address] [place], [address] MCH (RBC) [Entitic mass] 29.9 pg Normal 27.0-32.0 [facility] Comment on above: Performed By: #### L 501.9520, L501.6400, L100.0100, L501.5200, L501.4900, L500.4050 #### [facility] [address] [place], [address] MCHC (RBC) [Mass/Vol] 34.2 g/dL Normal 32-36 [facility] Comment on above: Performed By: #### L 501.9520, L501.6400, L100.0100, L501.5200, L501.4900, L500.4050 #### [facility] [address] [place], [address] MCV (RBC) [Entitic vol] 87.5 fL Normal 80-94 [facility] Comment on above: Performed By: #### L 501.9520, L501.6400, L100.0100, L501.5200, L501.4900, L500.4050 #### [facility] [address] [place], [address] Monocytes/100 WBC (Bld) 6.1 % Normal 0-10 [facility] Comment on above: Performed By: #### L 501.9520, L501.6400, L100.0100, L501.5200, L501.4900, L500.4050 #### [facility] [address] [place], [address] Neutrophils/100 WBC (Bld) 69.0 % Normal 47-70 [facility] Comment on above: Performed By: #### L 501.9520, L501.6400, L100.0100, L501.5200, L501.4900, L500.4050 #### [facility] [address] [place], [address] Nucleated RBC (Bld) [#/Vol] 0 10*3/uL Normal 0-5 [facility] Comment on above: Performed By: #### L 501.9520, L501.6400, L100.0100, L501.5200, L501.4900, L500.4050 #### [facility] [address] [place], [address] Platelet mean volume (Bld) [Entitic vol] 9.1 fL Normal 6.2-12.0 [facility] Comment on above: Performed By: #### L 501.9520, L501.6400, L100.0100, L501.5200, L501.4900, L500.4050 #### [facility] [address] [place], [address] Platelets (Bld) [#/Vol] 191 10*3/uL Normal 150-450 [facility] Comment on above: Performed By: #### L 501.9520, L501.6400, L100.0100, L501.5200, L501.4900, L500.4050 #### [facility] [address] [place], [address] RBC (Bld) [#/Vol] 5.75 10*6/uL Normal 4.6-6.2 [facility] Comment on above: Performed By: #### L 501.9520, L501.6400, L100.0100, L501.5200, L501.4900, L500.4050 #### [facility] [address] [place], [address] RDW SD 48.0 fl High 35.1-43.9 [facility] Comment on above: Performed By: #### L 501.9520, L501.6400, L100.0100, L501.5200, L501.4900, L500.4050 #### [facility] [address] [place], [address] WBC (Bld) [#/Vol] 9.1 10*3/uL Normal 4.4-11.0 [facility] Comment on above: Performed By: #### L 501.9520, L501.6400, L100.0100, L501.5200, L501.4900, L500.4050 #### [facility] [address] [place], [address] CO2 (BldV) [Moles/Vol]Ordere d By: Shelbie Guaman on 12-08-2024 CO2 [Moles/Vol] 25 mmol/L 23-33 [facility] Carbon dioxide, total [Moles /volume] in Central venous bloodOrdered By: Martha Mead on 12-08-2024 CO2 [Moles/Vol] 17.3 mmol/L Low 21.0-32.0 [facility] CO2 [Moles/Vol] 19.0 mmol/L Low 21.0-32.0 [facility] Chest PA and Lateralon 12-08 Chest PA and Lateral [facility] Imaging Services [address] [place] [address] Chest PA and Lateral MR#: [id number] Acct: [id number] Name: KAROLINAMARCEL J Rep #: [id number] : 1960 M 64 From: Pamella Huggins nd, MD PCP: Dr. Jose David Sims MD Status: REG ER Study: Chest PA and Lateral Date of Exam: 12/08/24 Exam# [id number] Ordering Dr: Martha Mead PROCEDURE: CHEST PA AND LATERAL 12/08/2024 REASON FOR EXAM: CHEST PAIN TECHNIQUE: CHEST PA AND LATERAL COMPARISON: Chest radiograph earlier same day. FINDINGS: Visualization is limited by body habitus. Hardware: None. Heart: Heart size is mildly enlarged with pulmonary vascular congestion. Mediastinum: The mediastinal contour is stable. Lungs: Right lower lobe opacity. No obvious pleural effusion or pneumothorax. Bones: The bones are unremarkable. RAD/Chest PA and Lateral IMPRESSION: 1. Right lower lobe opacity, which may represent atelectasis or pneumonitis/pneumonia. 2. Mild cardiomegaly. Reading Location: [facility] CC: Dr. Jose David Sims MD; [place] Set Up: Signed Normal [facility] Chest PA and Lateral [facility] Imaging Services [address] [place] [id number] Chest PA and Lateral MR#: [id number] Acct: [id number] Name: MARCEL TURCIOS Rep #: [id number] : 1960 M 64 From: Wu Zarate PCP: Dr. Jose David Sims MD Status: REG ER Study: Chest PA and Lateral Date of Exam: 12/08/24 Exam# [id number] Ordering Dr: Martha Mead PROCEDURE: CHEST PA AND LATERAL 12/08/2024 REASON [...] pneumothorax. Mild pulmonary vascular congestion. Reading Location: [id number] CC: Dr. Jose David Sims MD; [place] Set Up: Signed Normal [facility] Chest without Contraston Chest without Contrast [facility] Imaging Services [address] [place] [address] Chest without Contrast MR#: [id number] Acct: [id number] Name: MARCEL TURCIOS Rep #: [id number] : 1960 M 64 From: Guerita stacy MD PCP: Dr. Jose David Sims MD Status: [facility] ER Study: Chest without Contrast Date of Exam: 12/08/24 Exam# [id number] Ordering Dr: Odilia Burgos DO PROCEDURE: CHEST WITHOUT CONTRAST 12/09/2024 REASON FOR EXAM: INFILTRATE TECHNIQUE: Chest CT without contrast. Coronal and Sagittal reconstruction series were provided. One or more dose reduction techniques were used (e.g., Automated exposure control, adjustment of the mA and/or kV according to patient size, use of iterative reconstruction technique RADIATION DOSE SUMMARY: CTDlvol: 20.15 mGy DLP: 805 mGycm COMPARISON: Chest radiograph on 12/08/2024. FINDINGS: Subsegmental atelectasis/consolidation in the lingula. Please evaluate to exclude superimposed pneumonia. Normal unenhanced main pulmonary artery and right and left pulmonary arteries. Normal bilateral peripheral pulmonary arteries. Normal thoracic aorta and visualized great vessels. There is no demonstrated aortic aneurysm. Normal heart and pericardium. Normal mediastinum. Normal hilar regions. Normal visualized trachea and bronchi. Normal pleura. Hepatomegaly with hepatic steatosis. CT/Chest without Contrast IMPRESSION: Coronary artery calcification (CAC) is is present Subsegmental atelectasis/consolidation in the lingula. Please evaluate to exclude superimposed pneumonia. Reading Location: [facility] CC: Dr. Jose David Sims MD; Dr. Oidlia Burgos DO [place] Set Up: Signed Normal [facility] Chloride assayOrdered By: Ros Mead on 12-08-2024 Chloride [Moles/Vol] 102 mmol/L 98-108 [facility] Chloride [Moles/Vol] 103 mmol/L 98-108 [facility] D-Dimer Quantitative (DVT/PE )on 12-08-2024 D-DIMER QUANT 0.36 FEU/ug/m Normal 0.27-0.49 [facility] Comment on above: Result Comment: NORM AL D-Dimer level (<0.50) indicates no DVT or PE. Performed By: #### L 501.9520, L501.6400, L100.0100, L501.5200, L501.4900, L500.4050 #### [facility] [address] [facility] [place], [address] Emergency Department Summary on 12-08-2024 Emergency Department Summary [facility] Medical Records Department [address] [place] [address] Emergency Department Summary 12/08/24 MR#: [id number] Acct: [id number] Name: MARCEL TURCIOS Rep #: [id number] : 1960 64 From: Martha JADE PCP: Dr. Jose David Sims MD Status:DIS IN Location: [place] [address] HPI History of Present Illness Chief Complaint: Shortness of Breath Narrative Narrative: Patient presenting today due to concerns for abnormal heart rate. He reports that he checks his heart rate daily with his blood pressure cuff and his pulse oximeter, it was reading in the 50s which is unusual for him, prompting him to come in to be seen. He reports that over the last year he has had chronic dyspnea with exertion. He is unable to ambulate from his bed to the bathroom in his small trailer without feeling profoundly short of breath. He reports that he has not been able to take a shower over the last 3 weeks due to feeling so short of breath. He admits to smoking about 6 packs of cigarettes daily, however he states he only smokes 1/2 to 3/4 of each cigarette. He recently established with a PCP on Wednesday and was started on inhalers for COPD, he reports that these are helping. He does use BiPAP due to a history of ZAN and states that he stays on the BiPAP the majority of each day. He reports chronic left-sided chest pain that radiates across his chest, he reports that his pain today is not any worse than normal. He denies fevers, chills, recent illness. PE Risk Factors: Negative for Prior DVT or PE, Recent surgery or Recent travel [facility] Medical History PTSD (post-traumatic stress disorder) Foraminal stenosis of lumbosacral region ZAN (obstructive sleep apnea) Back pain Anxiety COPD (chronic obstructive pulmonary disease) Radiculitis of leg Lumbar canal stenosis Foraminal stenosis of lumbosacral region Back pain Anxiety COPD (chronic obstructive pulmonary disease) Obstructive sleep apnea Home Medications ???Medication ???Instructions ???Recorded ???Last Taken ???Type albuterol sulfate 1.25 mg/3 mL 1.25 mg inhalation Q4H PRN PRN Unknown History solution for nebulization dyspnea budesonide-formoterol HFA 160 2 inh inhalation Q12H 12/08/24 Unk nown History mcg-4.5 mcg/actuation aerosol inhaler (Breyna) magnesium oxide 400 mg (241.3 mg 400 mg PO BID 12/08/24 Unknown His tory magnesium) tablet Allergy/AdvReac Type Severity Reaction Status Date / Time codeine Allergy Hives Verified 12/08/24 21:09 Iodinated Contrast Media Allergy Hives Verified 12/08/24 21:09 (Iodinated Contrast Media - IV Dye) diclofenac AdvReac Swelling Verified 12/08/24 21:09 metaxalone AdvReac Swelling Verified 12/08/24 21:09 methylphenidate (From AdvReac hallucinati Verified 12/08/24 21:09 Ritalin) ons Phenylpiperazine AdvReac Other Verified 12/08/24 21:09 Antidepressant Tetracyclic Antidepressants AdvReac Other Verified 12/08/24 21:09 Tricyclic Antidepressants AdvReac Other Verified 12/08/24 21:09 and Tricy Family History Other Diabetes Hypertension Surgical History S/P epidural steroid injection Social History household members: family Smoking Status: Current every day smoker tobacco type: cigarettes and e-cigarettes alcohol intake: never substance use type: does not use ROS ROS ED Constitutional Constitutional ED: Denies chills or fever(s) Cardiovascular Cardiovascular: Reports chest pain Respiratory/Chest Respiratory/Chest: Reports dyspnea, dyspnea on exertion and tachypnea; Denies cough or wheezing Gastrointestinal Gastrointestinal: Denies abdominal pain, nausea or vomiting Integumentary Denies rash Neurologic Neurologic: Denies weakness EXAM Physical Exam Const Vital Signs: 12/08/24 11:59 12/08/24 12:22 12/08/24 12:40 Temperature 97.8 F Temperature Source Oral Pulse Rate 108 H 103 H Respiratory Rate 30 H Respiratory Effort Labored Respiratory Depth Deep Respiratory Pattern Grunting Blood Pressure 177/113 H Blood Pressure Mean 134 Pulse Ox 96 97 Oxygen Delivery Method Room Air Room Air Room Air Fraction of Inspired Oxygen (FIO2) 12/08/24 12:40 12/08/24 13:00 12/08/24 14:07 Temperature 97.9 F 97.7 F L Temperature Source Oral Temporal Pulse Rate 101 H 102 H Respiratory Rate 18 24 H Respiratory Effort Respiratory Depth Respiratory Pattern Blood Pressure 161/116 H 158/114 H Blood Pressure Mean 131 128 Pulse Ox 97 96 96 Oxygen Delivery Method Room Air Room Air Room Air Fraction of In (more content not included)... Normal [facility] Eosinophil percentageOrdered By: Martha Mead on 12-08-2024 Eosinophils/100 WBC (Bld) 0.4 % 0-5 [facility] Eosinophils/100 WBC (Bld) 1.7 % 0-5 [facility] Erythrocyte distribution wid th ratioOrdered By: Martha Mead on 12-08-2024 Erythrocyte distribution width (RBC) [Ratio] 15.8 % High 11.6-14.6 [facility] Erythrocyte distribution width (RBC) [Ratio] 15.1 % High 11.6-14.6 [facility] Erythrocyte distribution wid th standard deviationOrdered By: Martha Mead on 12-08-2024 Erythrocyte distribution width (RBC) [Ratio] 48.6 fl High 35.1-43.9 [facility] Erythrocyte distribution width (RBC) [Ratio] 48.0 fl High 35.1-43.9 [facility] Glomerular filtration rate ( GFR) estimation/1.73 sq m using serum, plasma, or whole bOrdered By: Martha Mead on 12-08-2024 GFR/1.73 sq M.predicted among non-blacks MDRD (S/P/Bld) [Vol rate/Area] 51 mL/min/{1.73_m2} Low >60 [facility] Comment on above: mL/min/1.73m2 CKD-EP I Creatinine Equation (2020) GFR/1.73 sq M.predicted among non-blacks MDRD (S/P/Bld) [Vol rate/Area] 83 mL/min/{1.73_m2} >60 [facility] Comment on above: mL/min/1.73m2 CKD-EP I Creatinine Equation (2020) H AND P Exam - [facility] 12-08-2024 H&P Exam - Hospitalist [facility] Medical Records Department [address] [place] [address] H P Exam - Hospitalist 12/08/24 1519 MR#: [id number] Acct: [id number] Name: MARCEL TURCIOS Rep #: [id number] : 1960 64 From: Mis Edmondson MD PCP: Dr. Jose David Sims MD Status:DIS IN Location: [facility] [id number] HPI - General General Date of Admission: 12/08/24 Date of Service: 12/08/24 Chief Complaint: shortness of breath HPI Narrative MARCEL TURCIOS, is a 64 M with a PMH as outlined who presents via the ED with a complaint of shortness of breath and palpitations. HE has been getting progressively short of breath. He said the shortness of breath had been going on for about a year and had gradually been worsening. He had assisted orthopnea and wheezing but denied any PND. Patient says he smokes about 4 packs of cigarettes a day and has done so since he was about 11 years old. He has not seen a doctor for at least 15 years and says he is on BiPAP but has not follow-up with any doctor for this. He denies any cough, chest pain, palpitations, dizziness, nausea, vomiting or any other symptoms. He does have a history of heavy smoking and denies any history of PE. Review of systems is otherwise negative. His son and daughter were present by his bedside. Vitals in the ED where temperature of 97.7 Fahrenheit, pulse rate of 102 Fahrenheit, blood pressure of 158/114 respirate rate of 24. He was saturating at 96% on room air. CBC showed hemoglobin of 17.2 with WBC of 9.1 and platelets of 191. Chemistry showed sodium of 136 with potassium of 4.2 and bicarb of 19. Anion gap is 14. Creatinine is 1.01. TSH is 1.8. Chest x-ray shows right lower lobe opacity with well-preserved atelectasis, pneumonia and/or aspiration with no evidence of pleural effusion or pneumothorax and mild pulmonary vascular congestion. He is being admitted to be managed for hypoxia likely due to COPD exacerbation and probable heart failure. A CT of the chest was ordered but patient refused due to history of iodine contrast allergy. CT of the chest without contrast was therefore ordered. [facility] Medical History PTSD (post-traumatic stress disorder) Foraminal stenosis of lumbosacral region ZAN (obstructive sleep apnea) Back pain Anxiety COPD (chronic obstructive pulmonary disease) Radiculitis of leg Lumbar canal stenosis Foraminal stenosis of lumbosacral region Back pain Anxiety COPD (chronic obstructive pulmonary disease) Obstructive sleep apnea Home Medications ???Medication ???Instructions ???Recorded ???Last Taken ???Type metoprolol succinate 50 mg 50 mg PO DAILY #30 tabs 09/16/23 U nknown Rx tablet,extended release 24 hr Allergy/AdvReac Type Severity Reaction Status Date / Time codeine Allergy Hives Verified 12/08/24 16:13 Iodinated Contrast Media Allergy Hives Verified 12/08/24 16:13 (Iodinated Contrast Media - IV Dye) diclofenac AdvReac Swelling Verified 12/08/24 16:13 metaxalone AdvReac Swelling Verified 12/08/24 16:13 methylphenidate (From AdvReac hallucinati Verified 12/08/24 16:13 Ritalin) ons Phenylpiperazine AdvReac Other Verified 12/08/24 16:13 Antidepressant Tetracyclic Antidepressants AdvReac Other Verified 12/08/24 16:13 Tricyclic Antidepressants AdvReac Other Verified 12/08/24 16:13 and Tricy Surgical History S/P epidural steroid injection Social History Smoking Status: Current every day smoker tobacco type: cigarettes ROS Constitutional Constitutional: Reports fatigue, malaise and weakness; Denies anorexia, chills or fever(s) Eyes Eyes: Denies change in vision ENT HEENT: Denies dysphagia, headache(s) or sore throat Cardiovascular Cardiovascular: Reports dyspnea on exertion and orthopnea; Denies chest pain, edema, lightheadedness, palpitations, paroxysmal nocturnal dyspnea or rapid heart rate Respiratory/Chest Respiratory/Chest: Reports dyspnea, shortness of breath at rest, shortness of breath with exertion and wheezing; Denies cough, hemoptysis or productive cough Gastrointestinal Gastrointestinal: Denies abdominal pain, constipation, nausea or vomiting Genitourinary Genitourinary: Denies dysuria Neurologic Neurologic: Denies confusion, dizziness, focal weakness, headache(s) or numbness Psychiatric Psychiatric: Denies anxiety or depression Vital Signs Vital Signs Vital Signs: 12/08/24 11:59 12/08/24 12:22 12/08/24 12:40 Temperature 97.8 F Temperature Source Oral Pulse Rate 108 H 103 H Respiratory Rate 30 H Respiratory Effort Labored Respiratory Depth Deep Respiratory Pattern Grunting Blood Pressure 177/113 H Blood Pressure Mean 134 Pulse Ox (more content not included)... Normal [facility] Hematocrit Auto (Bld) [Volum e fraction]Ordered By: Martha Mead on 12-08-2024 Hematocrit (Bld) [Volume fraction] 53.8 % 40-54 [facility] Hematocrit (Bld) [Volume fraction] 50.3 % 40-54 [facility] Hemoglobin measurementOrdere d By: Martha Mead on 12-08-2024 Hemoglobin (Bld) [Mass/Vol] 18.4 g/dL High 13.0-16.5 [facility] Comment on above: CRITICAL VALUE HENDRIX D TO [id number] Ivan Jones.RESULTS READ BACK BY SAME. Hemoglobin (Bld) [Mass/Vol] 17.2 g/dL High 13.0-16.5 [facility] Immature granulocytes/100 WB C Auto (Bld)Ordered By: Martha Mead on 12-08-2024 Immature granulocytes/100 WBC (Bld) 0.600 % 0.0-0.9 [facility] Comment on above: IG% - Immature Granu locytes (promyelocytes, myelocytes and metamyelocytes) > 1% indicates that a LEFT SHIFT is Present. Immature granulocytes/100 WBC (Bld) 0.600 % 0.0-0.9 [facility] Comment on above: IG% - Immature Granu locytes (promyelocytes, myelocytes and metamyelocytes) > 1% indicates that a LEFT SHIFT is Present. L499.0042on 12-08-2024 Trop T High Sen 18 ng/L Normal <=22 [facility] Comment on above: Order Comment: CHECK ED.. STILL IN ER AT 1627 Performed By: #### L 500.2500, L100.0100 #### [facility] [address] [place], [address] L501.4021on 12-08-2024 Trop T High Sen 36 ng/L High <=22 [facility] Comment on above: Performed By: #### L 501.9520, L501.6400, L100.0100, L501.5200, L501.4900, L500.4050 #### [facility] [address] [place], [address] Trop T High Sen 14 ng/L Normal <=22 [facility] Comment on above: Performed By: #### L 501.9520, L501.6400, L100.0100, L501.5200, L501.4900, L500.4050 #### [facility] [address] [place], [address] L503.7505on 12-08-2024 Natriuretic peptide B (Bld) [Mass/Vol] 310 pg/mL Normal <=900 [facility] Comment on above: Result Comment: Hear t Failure Unlikely: < 300 pg/mL Heart Failure Likely < 50 Years: > 450 pg/mL 50-75 Years: > 900 pg/mL >75 Years: > 1800 pg/mL Performed By: #### L 501.9520, L501.6400, L100.0100, L501.5200, L501.4900, L500.4050 #### [facility] [address] [place], [address] Lactic acid measurementOrder ed By: Odilia Burgos on 12-08-2024 Lactate [Moles/Vol] 1.2 mmol/L 0.0-2.0 [facility] MCV (mean corpuscular volume ) determinationOrdered By: Martha Mead on 12-08-2024 MCV (RBC) [Entitic vol] 87.6 fL 80-94 [facility] MCV (RBC) [Entitic vol] 87.5 fL 80-94 [facility] Magnesiumon 12-08-2024 Magnesium [Mass/Vol] 2.0 mg/dL Normal 1.5-2.2 [facility] Comment on above: Performed By: #### L 500.2500, L100.0100 #### [facility] [address] [place], [address] Magnesium [Mass/Vol] 2.0 mg/dL Normal 1.5-2.2 [facility] Comment on above: Performed By: #### L [id number], L501.6400, L100.0100, L501.5200, L501.4900, L500.4050 #### [facility] [address] [place], [address] Magnesium measurement (mass/ volume)Ordered By: Mis Edmondson on 12-08-2024 Magnesium (Unsp spec) [Mass/Vol] 2.0 mg/dL 1.5-2.2 [facility] Magnesium measurement (mass/ volume)Ordered By: Martha Mead on 12-08-2024 Magnesium (Unsp spec) [Mass/Vol] 2.0 mg/dL 1.5-2.2 [facility] Mean corpuscular hemoglobin (MCH) determinationOrdered By: Martha Mead on 12-08-2024 MCH (RBC) [Entitic mass] 30.0 pg 27.0-32.0 [facility] MCH (RBC) [Entitic mass] 29.9 pg 27.0-32.0 [facility] Mean corpuscular hemoglobin concentration (MCHC) determinationOrdered By: Martha Mead on 12-08-2024 MCHC (RBC) [Mass/Vol] 34.2 g/dL - [facility] MCHC (RBC) [Mass/Vol] 34.2 g/dL - [facility] Mean platelet volume determi nationOrdered By: Martha Mead on 12-08-2024 Platelet mean volume (Bld) [Entitic vol] 9.0 fL 6.2-12.0 [facility] Platelet mean volume (Bld) [Entitic vol] 9.1 fL 6.2-12.0 [facility] Monocyte percentageOrdered B y: Martha Mead on 12-08-2024 Monocytes/100 WBC (Bld) 8.6 % 0-10 [facility] Monocytes/100 WBC (Bld) 6.1 % 0-10 [facility] Natriuretic peptide.B prohor hector N-Terminal [Mass/volume] in Serum or PlasmaOrdered By: Martha Mead on 12-08-2024 Natriuretic peptide.B prohormone N-Terminal [Mass/Vol] 310 pg/mL <900 [facility] Comment on above: Heart Failure Unlike ly: < 300 pg/mLHeart Failure Likely< 50 Years: > 450 pg/mL50-75 Years: > 900 pg/mL>75 Years: > 1800 pg/mL Neutrophil percentageOrdered By: Martha Mead on 12-08-2024 Neutrophils/100 WBC (Bld) 72.1 % High 47-70 [facility] Neutrophils/100 WBC (Bld) 69.0 % 47-70 [facility] No Panel InformationOrdered By: Shelbie Guaman on 12-08-2024 Blood Gas Sample Site Not entered [facility] Blood Gas Specimen Type MATHEW [facility] Oxygen Delivery Device Not entered [facility] Nucleated red blood cell per centageOrdered By: Martha Mead on 12-08-2024 Nucleated RBC/100 WBC (Bld) [Ratio] 0 % 0-5 [facility] Nucleated RBC/100 WBC (Bld) [Ratio] 0 % 0-5 [facility] Platelet countOrdered By: Ros palaciosttrosario Mead on 12-08-2024 Platelets (Bld) [#/Vol] 267 10*3/uL 150-450 [facility] Platelets (Bld) [#/Vol] 191 10*3/uL 150-450 [facility] Potassium measurement (mass/ volume)Ordered By: Martha Mead on 12-08-2024 Potassium (Unsp spec) [Mass/Vol] 4.1 mmol/L 3.3-5.1 [facility] Potassium (Unsp spec) [Mass/Vol] 4.2 mmol/L 3.3-5.1 [facility] Comment on above: Hemolysis present, R esults could be affected. Procalcitonin [Mass/volume] in Serum or Plasma by ImmunoassayOrdered By: Odilia Burgos on 12-08-2024 Procalcitonin IA [Mass/Vol] 0.15 ng/mL High <0.11 [facility] Comment on above: Interpretation:<0.10 -0.25 ng/mL: Antibiotic therapy discouraged. Bacterial infection unlikely.0.25-0.50 ng/mL: Antibiotic therapy encouraged. Bacterial infection possible.>0.50 ng/mL: Antibiotic therapy strongly encouraged. Suggestive of presence of bacterial infection.PCT should always be interpreted in the clinical context of the patient. Therefore, clinicians should use the PCT results in conjunction with other laboratory findings and clinical signs of the patient. RBC Auto (Bld) [#/Vol]Ordere d By: Martha Mead on 12-08-2024 RBC (Bld) [#/Vol] 6.14 10*6/uL 4.6-6.2 [facility] RBC (Bld) [#/Vol] 5.75 10*6/uL 4.6-6.2 [facility] Serum creatinine measurement (mass/volume)Ordered By: Martha Mead on 12-08-2024 Creatinine [Mass/Vol] 1.50 mg/dL High 0.70-1.20 [facility] Creatinine [Mass/Vol] 1.01 mg/dL 0.70-1.20 [facility] Serum glucose measurement (m ass/volume)Ordered By: Martha Mead on 12-08-2024 Glucose [Mass/Vol] 157 mg/dL High 70-99 [facility] Glucose [Mass/Vol] 135 mg/dL High 70-99 [facility] Serum or plasma calcium jarrod urement (mass/volume)Ordered By: Martha Mead on 12-08-2024 Calcium [Mass/Vol] 10.2 mg/dL 7.6-11.0 [facility] Calcium [Mass/Vol] 9.4 mg/dL 7.6-11.0 [facility] Serum or plasma urea nitroge n measurement (mass/volume)Ordered By: Martha Mead on 12-08-2024 Urea nitrogen [Mass/Vol] 13 mg/dL 4- [facility] Urea nitrogen [Mass/Vol] 10 mg/dL 10-14 [facility] Sodium levelOrdered By: Daniel Mead on 12-08-2024 Sodium [Moles/Vol] 139 mmol/L 133-145 [facility] Sodium [Moles/Vol] 136 mmol/L 133-145 [facility] TSH DL <= 0.005 mIU/L QnOrde red By: Mis Edmondson on 12-08-2024 TSH Qn 1.930 uIU/mL 0.300-4.20 0 [facility] TSH DL <= 0.005 mIU/L QnOrde red By: Martha Mead on 12-08-2024 TSH Qn 1.800 uIU/mL 0.300-4.20 0 [facility] Thyroid Stim Hormone (TSH)on 12-08-2024 TSH 1.930 uIU/mL Normal 0.300-4.20 0 [facility] Comment on above: Performed By: #### L 500.2500, L100.0100 #### [facility] [address] [place], [place] [address], [address] TSH 1.800 uIU/mL Normal 0.300-4.20 0 [facility] Comment on above: Performed By: #### L 501.9520, L501.6400, L100.0100, L501.5200, L501.4900, L500.4050 #### [facility] [address] [place], [address] Troponin T.cardiac [Mass/vol ume] in Serum or Plasma by High sensitivity methodOrdered By: Martha Mead on 12-08-2024 Troponin T.cardiac High sensitivity method [Mass/Vol] 34 ng/L High <22 [facility] Troponin T.cardiac High sensitivity method [Mass/Vol] 36 ng/L High <22 [facility] Comment on above: Delta: 14 on 5-1222 Troponin T.cardiac High sensitivity method [Mass/Vol] 18 ng/L <22 [facility] Troponin T.cardiac High sensitivity method [Mass/Vol] 14 ng/L <22 [facility] Venous Blood Gason 5 Blood Gas Type MATHEW [facility] Comment on above: Performed By: #### L 9000.0810 #### [facility] [address] [place], [address] CO2 [Moles/Vol] 25 mmol/L Normal 23-33 [facility] Comment on above: Performed By: #### L 9000.0810 #### [facility] [address] [place], [address] HCO3 (Bld) [Moles/Vol] 24 mmol/L Normal 22-26 [facility] Comment on above: Performed By: #### L 9000.0810 #### [facility] [address] [place], [address] O2 Delivery Dev Not entered [facility] Comment on above: Performed By: #### L 9000.0810 #### [facility] [address] [place], [address] SITE Not entered [facility] Comment on above: Performed By: #### L 9000.0810 #### [facility] [address] [place], [address] VBG BE 0 mmol/L Normal -1.0-3.5 [facility] Comment on above: Performed By: #### L 9000.0810 #### [facility] [address] [place], [address] VBG pCO2 34.4 mmHg Low 41-51 [facility] Comment on above: Performed By: #### L 9000.0810 #### [facility] [address] [place], [address] VBG pH 7.45 High 7.32-7.42 [facility] Comment on above: Performed By: #### L 9000.0810 #### [facility] [address] [place], [address] VBG PO2 86 mmHg High 25-40 [facility] Comment on above: Performed By: #### L 9000.0810 #### [facility] [address] [place], [address] VBG SO2 97 High 50-70 [facility] Comment on above: Performed By: #### L 9000.0810 #### [facility] [address] [place], [address] Venous blood base excess mikey surementOrdered By: Shelbie Guaman on 12-08-2024 Base excess Calc (BldV) [Moles/Vol] 0 mmol/L -1.0-3.5 [facility] Venous blood bicarbonate mikey surementOrdered By: Shelbie Guaman on 12-08-2024 HCO3 (Bld) [Moles/Vol] 24 mmol/L 22-26 [facility] Venous blood oxygen saturati on measurementOrdered By: Shelbie Guaman on 12-08-2024 Oxygen saturation in Blood 97 % High 50-70 [facility] Venous blood pH measurementO rdered By: Shelbie Guaman on 12-08-2024 pH (BldV) 7.45 [pH] High 7.32-7.42 [facility] Venous blood partial pressur e of carbon dioxide measurementOrdered By: Shelbie Guaman on 12-08-2024 CO2 (BldV) [Partial pressure] 34.4 mm[Hg] Low 41-51 [facility] Venous blood partial pressur e of oxygen measurementOrdered By: Shelbie Guaman on 12-08-2024 Oxygen (BldV) [Partial pressure] 86 mm[Hg] High 25-40 [facility] White blood cell (WBC) count Ordered By: Martha Mead on 12-08-2024 WBC (Bld) [#/Vol] 20.3 10*3/uL High 4.4-11.0 [facility] WBC (Bld) [#/Vol] 9.1 10*3/uL 4.4-11.0 [facility] Absolute lymphocyte countOrd ered By: Jose David Sims on 12-07-2024 Lymphocytes Auto (Unsp spec) [#/Vol] 2.41 10*3/uL 0.83-4.51 [facility] Absolute neutrophil countOrd ered By: Jose David Sims on 12-07-2024 Neutrophils (Bld) [#/Vol] 5.7 10*3/uL 2.0-7.7 [facility] Anion gap in Serum or Plasma Ordered By: Jose David Sims on 12-07-2024 Anion gap [Moles/Vol] 13 mmol/L 5-15 [facility] Automated lymphocyte count a s percentage of total leukocytesOrdered By: Jose David Sims on 12-07-2024 Lymphocytes/100 WBC Auto (Unsp spec) 25.7 % 19-41 [facility] BUN/creatinine ratioOrdered By: Jose David Sims on 12-07-2024 Urea nitrogen/Creatinine [Mass ratio] 10.5 mg/mg 10-20 [facility] Basophil percentageOrdered B y: Jose David Sims on 12-07-2024 Basophils/100 WBC (Bld) 1.1 % High 0-1 [facility] Bilirubin, totalOrdered By: Jose David Sims on 12-07-2024 Bilirubin [Mass/Vol] 0.49 mg/dL 0.00-1.30 [facility] CBC W/Diff, Automatedon 06-06 29-2024 Absolute Lymph 2.41 X10 3/uL Normal 0.83-4.51 [facility] Comment on above: Performed By: #### L 501.9520, L501.6400, L100.0100, L501.5200, L501.4900, L500.4050 #### [facility] [address] [place], [address] Absolute Neut 5.7 X10 3/uL Normal 2.0-7.7 [facility] Comment on above: Performed By: #### L 501.9520, L501.6400, L100.0100, L501.5200, L501.4900, L500.4050 #### [facility] [address] [place], [address] Basophils/100 WBC (Bld) 1.1 % High 0-1 [facility] Comment on above: Performed By: #### L 501.9520, L501.6400, L100.0100, L501.5200, L501.4900, L500.4050 #### [facility] [address] [place], [address] Eosinophils/100 WBC (Bld) 4.3 % Normal 0-5 [facility] Comment on above: Performed By: #### L 501.9520, L501.6400, L100.0100, L501.5200, L501.4900, L500.4050 #### [facility] [address] [place], [address] Erythrocyte distribution width (RBC) [Ratio] 15.1 % High 11.6-14.6 [facility] Comment on above: Performed By: #### L 501.9520, L501.6400, L100.0100, L501.5200, L501.4900, L500.4050 #### [facility] [address] [place], [address] Hematocrit (Bld) [Volume fraction] 48.0 % Normal 40-54 [facility] Comment on above: Performed By: #### L [id number], L501.6400, L100.0100, L501.5200, L501.4900, L500.4050 #### [facility] [address] [place], [address] Hemoglobin (Bld) [Mass/Vol] 15.8 g/dL Normal 13.0-16.5 [facility] Comment on above: Performed By: #### L [id number], L501.6400, L100.0100, L501.5200, L501.4900, L500.4050 #### [facility] [address] [place], [address] IG% 0.600 Normal 0.0-0.9 [facility] Comment on above: Result Comment: IG% - Immature Granulocytes (promyelocytes, myelocytes and metamyelocytes) > 1% indicates that a LEFT SHIFT is Present. Performed By: #### L [id number], L501.6400, L100.0100, L501.5200, L501.4900, L500.4050 #### [facility] [address] [place], [address] Lymphocytes/100 WBC (Bld) 25.7 % Normal 19-41 [facility] Comment on above: Performed By: #### L [id number], L501.6400, L100.0100, L501.5200, L501.4900, L500.4050 #### [facility] [address] [place], [address] MCH (RBC) [Entitic mass] 29.6 pg Normal 27.0-32.0 [facility] Comment on above: Performed By: #### L [id number], L501.6400, L100.0100, L501.5200, L501.4900, L500.4050 #### [facility] [address] [place], [address] MCHC (RBC) [Mass/Vol] 32.9 g/dL Normal 32-36 [facility] Comment on above: Performed By: #### L [id number], L501.6400, L100.0100, L501.5200, L501.4900, L500.4050 #### [facility] [address] [place], [address] MCV (RBC) [Entitic vol] 90.1 fL Normal 80-94 [facility] Comment on above: Performed By: #### L [id number], L501.6400, L100.0100, L501.5200, L501.4900, L500.4050 #### [facility] [address] [place], [address] Monocytes/100 WBC (Bld) 7.1 % Normal 0-10 [facility] Comment on above: Performed By: #### L [id number], L501.6400, L100.0100, L501.5200, L501.4900, L500.4050 #### [facility] [address] [place], [address] Neutrophils/100 WBC (Bld) 61.2 % Normal 47-70 [facility] Comment on above: Performed By: #### L [id number], L501.6400, L100.0100, L501.5200, L501.4900, L500.4050 #### [facility] [address] [place], [address] Nucleated RBC (Bld) [#/Vol] 0 10*3/uL Normal 0-5 [facility] Comment on above: Performed By: #### L [id number], L501.6400, L100.0100, L501.5200, L501.4900, L500.4050 #### [facility] [address] [place], [address] Platelet mean volume (Bld) [Entitic vol] 9.2 fL Normal 6.2-12.0 [facility] Comment on above: Performed By: #### L [id number], L501.6400, L100.0100, L501.5200, L501.4900, L500.4050 #### [facility] [address] [place], [address] Platelets (Bld) [#/Vol] 207 10*3/uL Normal 150-450 [facility] Comment on above: Performed By: #### L [id number], L501.6400, L100.0100, L501.5200, L501.4900, L500.4050 #### [facility] [address] [place], [address] RBC (Bld) [#/Vol] 5.33 10*6/uL Normal 4.6-6.2 [facility] Comment on above: Performed By: #### L [id number], L501.6400, L100.0100, L501.5200, L501.4900, L500.4050 #### [facility] [address] [place], [address] RDW SD 49.7 fl High 35.1-43.9 [facility] Comment on above: Performed By: #### L [id number], L501.6400, L100.0100, L501.5200, L501.4900, L500.4050 #### [facility] [address] [place], [address] WBC (Bld) [#/Vol] 9.4 10*3/uL Normal 4.4-11.0 [facility] Comment on above: Performed By: #### L [id number], L501.6400, L100.0100, L501.5200, L501.4900, L500.4050 #### [facility] [address] [place], [address] Carbon dioxide, total [Moles /volume] in Central venous bloodOrdered By: Jose David Sims on 12-07-2024 CO2 [Moles/Vol] 21.2 mmol/L 21.0-32.0 [facility] Chloride assayOrdered By: Kimani Sims on 12-07-2024 Chloride [Moles/Vol] 104 mmol/L 98-108 [facility] Cholesterolon 12-07-2024 Cholesterol [Mass/Vol] 212 mg/dL High <=200 [facility] Comment on above: Result Comment: Chol esterol level, Desirable <200 mg/dL Borderline high cholesterol 200-239 mg/dL High cholesterol >=240 mg/dL Recommendations of the NCEP Adult Treatment Panel for the following risk-cutoff thresholds for the [place] population. Performed By: #### L 501.9520, L501.6400, L100.0100, L501.5200, L501.4900, L500.4050 #### [facility] [address] [place], [address] Comprehensive Metabolic Prof ilon 12-07-2024 Albumin [Mass/Vol] 4.3 g/dL Normal 3.4-4.8 [facility] Comment on above: Performed By: #### L [id number], L501.6400, L100.0100, L501.5200, L501.4900, L500.4050 #### [facility] [address] [place], [address] Albumin/Globulin [Mass ratio] 1.4 {ratio} Normal 0.9-2.4 [facility] Comment on above: Performed By: #### L [id number], L501.6400, L100.0100, L501.5200, L501.4900, L500.4050 #### [facility] [address] [place], [address] ALK PHOS 78 U/L Normal 40-129 [facility] Comment on above: Performed By: #### L [id number], L501.6400, L100.0100, L501.5200, L501.4900, L500.4050 #### [facility] [address] [place], [address] ALT [Catalytic activity/Vol] 44 U/L Normal <=46 [facility] Comment on above: Performed By: #### L [id number], L501.6400, L100.0100, L501.5200, L501.4900, L500.4050 #### [facility] [address] [place], [address] AST [Catalytic activity/Vol] 30 U/L Normal <=37 [facility] Comment on above: Performed By: #### L [id number], L501.6400, L100.0100, L501.5200, L501.4900, L500.4050 #### [facility] [address] [place], [address] Bilirubin [Mass/Vol] 0.49 mg/dL Normal 0.00-1.30 [facility] Comment on above: Performed By: #### L [id number], L501.6400, L100.0100, L501.5200, L501.4900, L500.4050 #### [facility] [address] [place], [address] BUN/CRE 10.5 RATIO Normal 10-20 [facility] Comment on above: Performed By: #### L [id number], L501.6400, L100.0100, L501.5200, L501.4900, L500.4050 #### [facility] [address] [place], [address] Calcium [Mass/Vol] 9.4 mg/dL Normal 7.6-11.0 [facility] Comment on above: Performed By: #### L [id number], L501.6400, L100.0100, L501.5200, L501.4900, L500.4050 #### [facility] [address] [place], [address] Chloride [Moles/Vol] 104 mmol/L Normal 98-108 [facility] Comment on above: Performed By: #### L [id number], L501.6400, L100.0100, L501.5200, L501.4900, L500.4050 #### [facility] [address] [place], [address] CO2 [Moles/Vol] 21.2 mmol/L Normal 21.0-32.0 [facility] Comment on above: Performed By: #### L [id number], L501.6400, L100.0100, L501.5200, L501.4900, L500.4050 #### [facility] [address] [place], [address] Creatinine [Mass/Vol] 1.05 mg/dL Normal 0.70-1.20 [facility] Comment on above: Performed By: #### L [id number], L501.6400, L100.0100, L501.5200, L501.4900, L500.4050 #### [facility] [address] [place], [address] GAP 13 Normal 5-15 [facility] Comment on above: Performed By: #### L [id number], L501.6400, L100.0100, L501.5200, L501.4900, L500.4050 #### [facility] [address] [place], [address] GFR/1.73 sq M.predicted among non-blacks MDRD (S/P/Bld) [Vol rate/Area] 79 mL/min/{1.73_m2} Normal >60 [facility] Comment on above: Result Comment: mL/m in/1.73m2 CKD-EPI Creatinine Equation (2020) Performed By: #### L 501.9520, L501.6400, L100.0100, L501.5200, L501.4900, L500.4050 #### [facility] [address] [place], [address] Globulin (S) [Mass/Vol] 3.0 g/dL Normal 2.2-4.2 [facility] Comment on above: Performed By: #### L [id number], L501.6400, L100.0100, L501.5200, L501.4900, L500.4050 #### [facility] [address] [place], [address] Glucose [Mass/Vol] 137 mg/dL High 70-99 [facility] Comment on above: Performed By: #### L [id number], L501.6400, L100.0100, L501.5200, L501.4900, L500.4050 #### [facility] [address] [place], [address] Potassium [Moles/Vol] 4.2 mmol/L Normal 3.3-5.1 [facility] Comment on above: Performed By: #### L [id number], L501.6400, L100.0100, L501.5200, L501.4900, L500.4050 #### [facility] [address] [place], [address] Sodium [Moles/Vol] 138 mmol/L Normal 133-145 [facility] Comment on above: Performed By: #### L [id number], L501.6400, L100.0100, L501.5200, L501.4900, L500.4050 #### [facility] [address] [place], [address] T PROT 7.2 g/dL Normal 5.9-8.4 [facility] Comment on above: Performed By: #### L [id number], L501.6400, L100.0100, L501.5200, L501.4900, L500.4050 #### [facility] [address] [place], [address] Urea nitrogen [Mass/Vol] 11 mg/dL Normal 4-19 [facility] Comment on above: Performed By: #### L [id number], L501.6400, L100.0100, L501.5200, L501.4900, L500.4050 #### [facility] [address] [place], [address] Eosinophil percentageOrdered By: Jose David Sims on 12-07-2024 Eosinophils/100 WBC (Bld) 4.3 % 0-5 [facility] Erythrocyte distribution wid th ratioOrdered By: Jose David Sims on 12-07-2024 Erythrocyte distribution width (RBC) [Ratio] 15.1 % High 11.6-14.6 [facility] Erythrocyte distribution wid th standard deviationOrdered By: Jose David Sims on 12-07-2024 Erythrocyte distribution width (RBC) [Ratio] 49.7 fl High 35.1-43.9 [facility] Glomerular filtration rate ( GFR) estimation/1.73 sq m using serum, plasma, or whole bOrdered By: Jose David Sims on 12-07-2024 GFR/1.73 sq M.predicted among non-blacks MDRD (S/P/Bld) [Vol rate/Area] 79 mL/min/{1.73_m2} >60 [facility] Comment on above: mL/min/1.73m2 CKD-EP I Creatinine Equation (2020) Hematocrit Auto (Bld) [Volum e fraction]Ordered By: Jose David Sims on 12-07-2024 Hematocrit (Bld) [Volume fraction] 48.0 % 40-54 [facility] Hemoglobin measurementOrdere d By: Jose David Sims on 12-07-2024 Hemoglobin (Bld) [Mass/Vol] 15.8 g/dL 13.0-16.5 [facility] High Density Lipoproteinon 0 12-07-2024 Cholesterol in HDL [Mass/Vol] 55 mg/dL Normal [facility] Comment on above: Result Comment: Manuela onal Cholesterol Education Program (NCEP) guidelines: <40 mg/dL: Low HDL-cholesterol (major risk factor for CHD) >= 60 mg/dL: High HDL-cholesterol (negative risk factor for CHD) HDL-cholesterol is affected by a number of factors, e.g. smoking, exercise, hormones, sex and age. Performed By: #### L 501.9520, L501.6400, L100.0100, L501.5200, L501.4900, L500.4050 #### [facility] [address] [place], [place], [address] Immature granulocytes/100 WB C Auto (Bld)Ordered By: Jose David Sims on 12-07-2024 Immature granulocytes/100 WBC (Bld) 0.600 % 0.0-0.9 [facility] Comment on above: IG% - Immature Granu locytes (promyelocytes, myelocytes and metamyelocytes) > 1% indicates that a LEFT SHIFT is Present. Laboratory - Chemistry and C hemistry - challengeOrdered By: Jose David Sims on 12-07-2024 AST [Catalytic activity/Vol] 30 U/L <38 [facility] MCV (mean corpuscular volume ) determinationOrdered By: Jose David Sims on 12-07-2024 MCV (RBC) [Entitic vol] 90.1 fL 80-94 [facility] Magnesiumon 12-07-2024 Magnesium [Mass/Vol] 2.0 mg/dL Normal 1.5-2.2 [facility] Comment on above: Performed By: #### L [id number], L501.6400, L100.0100, L501.5200, L501.4900, L500.4050 #### [facility] [address] [place], [place], [address] Magnesium measurement (mass/ volume)Ordered By: Jose David Sims on 12-07-2024 Magnesium (Unsp spec) [Mass/Vol] 2.0 mg/dL 1.5-2.2 [facility] Mean corpuscular hemoglobin (MCH) determinationOrdered By: Jose David Sims on 12-07-2024 MCH (RBC) [Entitic mass] 29.6 pg 27.0-32.0 [facility] Mean corpuscular hemoglobin concentration (MCHC) determinationOrdered By: Jose David Sims on 12-07-2024 MCHC (RBC) [Mass/Vol] 32.9 g/dL 32-36 [facility] Mean platelet volume determi nationOrdered By: Jose David Sims on 12-07-2024 Platelet mean volume (Bld) [Entitic vol] 9.2 fL 6.2-12.0 [facility] Monocyte percentageOrdered B y: Jose David Sims on 12-07-2024 Monocytes/100 WBC (Bld) 7.1 % 0-10 [facility] Neutrophil percentageOrdered By: Jose David Sims on 12-07-2024 Neutrophils/100 WBC (Bld) 61.2 % 47-70 [facility] Nucleated red blood cell per centageOrdered By: Jose David Sims on 12-07-2024 Nucleated RBC/100 WBC (Bld) [Ratio] 0 % 0-5 [facility] Platelet countOrdered By: Kimani Sims on 12-07-2024 Platelets (Bld) [#/Vol] 207 10*3/uL 150-450 [facility] Potassium measurement (mass/ volume)Ordered By: Jose David Sims on 12-07-2024 Potassium (Unsp spec) [Mass/Vol] 4.2 mmol/L 3.3-5.1 [facility] RBC Auto (Bld) [#/Vol]Ordere d By: Jose David Sims on 12-07-2024 RBC (Bld) [#/Vol] 5.33 10*6/uL 4.6-6.2 [facility] Serum creatinine measurement (mass/volume)Ordered By: Jose David Sims on 12-07-2024 Creatinine [Mass/Vol] 1.05 mg/dL 0.70-1.20 [facility] Serum globulin measurementOr dered By: Jose David Sims on 12-07-2024 Globulin (S) [Mass/Vol] 3.0 g/dL 2.2-4.2 [facility] Serum glucose measurement (m ass/volume)Ordered By: Jose David Sims on 12-07-2024 Glucose [Mass/Vol] 137 mg/dL High 70-99 [facility] Serum or plasma alanine crawford otransferase (ALT) measurementOrdered By: Jose David Sims on 12-07-2024 ALT [Catalytic activity/Vol] 44 U/L <47 [facility] Serum or plasma albumin jarrod urement (mass/volume)Ordered By: Jose David Sims on 12-07-2024 Albumin [Mass/Vol] 4.3 g/dL 3.4-4.8 [facility] Serum or plasma albumin/glob ulin mass ratioOrdered By: Jose David Sims on 12-07-2024 Albumin/Globulin [Mass ratio] 1.4 {ratio} 0.9-2.4 [facility] Serum or plasma alkaline christina sphatase measurementOrdered By: Jose David Sims on 12-07-2024 ALP [Catalytic activity/Vol] 78 U/L 40-129 [facility] Serum or plasma calcium jarrod urement (mass/volume)Ordered By: Jose David Sims on 12-07-2024 Calcium [Mass/Vol] 9.4 mg/dL 7.6-11.0 [facility] Serum or plasma cholesterol in HDL measurement (mass/volume)Ordered By: Jose David Sims on 12-07-2024 Cholesterol in HDL [Mass/Vol] 55 mg/dL >40 [facility] Comment on above: National Cholesterol Education Program (NCEP) guidelines:<40 mg/dL: Low HDL-cholesterol (major risk factor for CHD)>= 60 mg/dL: High HDL-cholesterol (negative risk factor for CHD)HDL-cholesterol is affected by a number of factors, e.g. smoking, exercise, hormones, sex and age. Serum or plasma cholesterol measurement (mass/volume)Ordered By: Jose David Sims on 12-07-2024 Cholesterol [Mass/Vol] 212 mg/dL High <201 [facility] Comment on above: Cholesterol level, D esirable <200 mg/dLBorderline high cholesterol 200-239 mg/dLHigh cholesterol >=240 mg/dLRecommendations of the NCEP Adult Treatment Panel for the following risk-cutoff thresholds for the [place] population. Serum or plasma urea nitroge n measurement (mass/volume)Ordered By: Jose David Sims on 12-07-2024 Urea nitrogen [Mass/Vol] 11 mg/dL 4-19 [facility] Sodium levelOrdered By: Jose David Sims on 12-07-2024 Sodium [Moles/Vol] 138 mmol/L 133-145 [facility] TSH DL <= 0.005 mIU/L QnOrde red By: Jose David Sims on 12-07-2024 TSH Qn 2.510 uIU/mL 0.300-4.20 0 [facility] Thyroid Stim Hormone (TSH)on 12-07-2024 TSH 2.510 uIU/mL Normal 0.300-4.20 0 [facility] Comment on above: Performed By: #### L [id number], L501.6400, L100.0100, L501.5200, L501.4900, L500.4050 #### [facility] [employer] [place], [address] Total proteinOrdered By: Carolyn Sims on 12-07-2024 Protein [Mass/Vol] 7.2 g/dL 5.9-8.4 [facility] White blood cell (WBC) count Ordered By: Jose David Sims on 12-07-2024 WBC (Bld) [#/Vol] 9.4 10*3/uL 4.4-11.0 [facility] Basophil percentageOrdered B y: Rod Castellanos on 09-16-2023 Chloride [Moles/Vol] 109 mmol/L 98-107 [facility] Glucose [Mass/Vol] 125 mg/dL 74-106 [facility] Comment on above: Fasting Glucose resu lt from 100 to 125 mg/dL suggests IMPAIRED HOMEOSTASIS per A.D.A. criteria. Hemoglobin (Bld) [Mass/Vol] 14.5 g/dL 13.0-16.5 [facility] Potassium [Moles/Vol] 4.0 mmol/L 3.5-5.1 [facility] Sodium [Moles/Vol] 138 mmol/L 136-145 [facility] WBC (Bld) [#/Vol] 7.9 10*3/uL 4.4-11.0 [facility] Determination of erythrocyte mean corpuscular volume (MCV)Ordered By: Rod Castellanos on 09-16-2023 MCV (RBC) [Entitic vol] 89.3 fL 80-94 [facility] Erythrocyte distribution wid th ratioOrdered By: Rod Castellanos on 09-16-2023 Erythrocyte distribution width (RBC) [Ratio] 14.9 % 11.6-14.6 [facility] Erythrocyte distribution wid th standard deviationOrdered By: Rod Castellanos on 09-16-2023 Erythrocyte distribution width (RBC) [Entitic vol] 48.8 fL 35.1-43.9 [facility] Hematocrit Auto (Bld) [Volum e fraction]Ordered By: Rod Castellanos on 09-16-2023 Hematocrit (Bld) [Volume fraction] 45.0 % 40-54 [facility] - Chemistry and C hemistry - challengeOrdered By: Rod Castellanos on 09-16-2023 CO2 [Moles/Vol] 23.0 mmol/L 21.0-32.0 [facility] Urea nitrogen/Creatinine [Mass ratio] 25.0 mg/mg 10-20 [facility] - Hematology and Cell countsOrdered By: Rod Castellanos on 09-16-2023 MCH (RBC) [Entitic mass] 28.8 pg 27.0-32.0 [facility] MCHC (RBC) [Mass/Vol] 32.2 g/dL 32-36 [facility] Platelet mean volume (Bld) [Entitic vol] 9.4 fL 6.2-12.0 [facility] Platelets (Bld) [#/Vol] 146 10*3/uL 150-450 [facility] No Panel InformationOrdered By: Rod Castellanos on 09-16-2023 Estimated Creatinine Clearance Calc 116.91 ml/min [facility] Estimated GFR (MDRD) Amer 93 mL/min >60 [facility] Comment on above: GFR Calc Estimated GFR (MDRD) Non-Af Amer 77 mL/min >60 [facility] Comment on above: Non- GFR Calc RBC Auto (Bld) [#/Vol]Ordere d By: Rod Castellanos on 09-16-2023 RBC (Bld) [#/Vol] 5.04 10*6/uL 4.6-6.2 [facility] Serum or plasma calcium jarrod urement (mass/volume)Ordered By: Rod Castellanos on 09-16-2023 Calcium [Mass/Vol] 9.1 mg/dL 8.5-10.1 [facility] Serum or plasma creatinine m easurement (mass/volume)Ordered By: Rod Castellanos on 09-16-2023 Creatinine [Mass/Vol] 1.04 mg/dL 0.70-1.30 [facility] Comment on above: The validity of the calculated GFR & GFRAA in patients over 70 years has not been determined. Clinical correlation is essential. Serum or plasma urea nitroge n measurement (mass/volume)Ordered By: Rod Castellanos on 09-16-2023 Urea nitrogen [Mass/Vol] 26 mg/dL 7-18 [facility] Thin prep Papanicolaou smear with manual screeningOrdered By: Rod Castellanos on 09-16-2023 Thin prep Papanicolaou smear with manual screening 6 5-15 [facility] Absolute lymphocyte countOrd ered By: Bertram Yi on 09-15-2023 Lymphocytes Auto (Unsp spec) [#/Vol] 2.01 10*3/uL 0.83-4.51 [facility] Activated partial thrombopla stin time (aPTT) in platelet poor plasma by coagulation aOrdered By: Bertram Yi on 09-15-2023 aPTT Coag (PPP) [Time] 26.4 s 24.1-36.2 [facility] Automated lymphocyte count a s percentage of total leukocytesOrdered By: Bertram Yi on 09-15-2023 Lymphocytes/100 WBC Auto (Unsp spec) 20.5 % 19-41 [facility] Basophil percentageOrdered B y: Rod Castellanos on 09-15-2023 Basophil percentage 0-5 SEEN /hpf 0-5 [facility] Cholesterol [Mass/Vol] 174 mg/dL <200 [facility] Comment on above: <200 mg/dL Desirable 200-240 mg/dL Borderline >240 mg/dL High Risk Triglyceride [Mass/Vol] 173 mg/dL <199 [facility] Comment on above: The drugs N-Acetylcy steine and Metamizole may falsely depress this assay.Serum Triglycerides Reference Interval Normal <150 mg/dL Borderline high 150 - 199 mg/dL High 200 - 499 mg/dL Very High > or = 500 mg/dL Basophil percentageOrdered B y: Bertram Yi on 09-15-2023 Lactate [Moles/Vol] 1.7 mmol/L 0.4-2.0 [facility] Basophils/100 WBC (Bld) 0.9 % 0-1 [facility] Bilirubin [Mass/Vol] 0.80 mg/dL 0.20-1.00 [facility] Comment on above: For patients on eltr ombopag therapy, use of Dimension [place] TBIL is not recommended. Chloride [Moles/Vol] 105 mmol/L 98-107 [facility] Eosinophils/100 WBC (Bld) 2.1 % 0-5 [facility] Glucose [Mass/Vol] 145 mg/dL 74-106 [facility] Comment on above: Fasting Glucose resu lt greater than or equal to 126 mg/dL suggests DIABETES MELLITUS per A.D.A. criteria. Hemoglobin (Bld) [Mass/Vol] 18.3 g/dL 13.0-16.5 [facility] Comment on above: CRITICAL VALUE VERIF IED. CALLED TO [id number]/20/[id number] [address].RESULTS READ BACK BY SAME . Monocytes/100 WBC (Bld) 11.9 % 0-10 [facility] [facility] Neutrophils (Bld) [#/Vol] 6.3 10*3/uL 2.0-7.7 [facility] Neutrophils/100 WBC (Bld) 63.9 % 47-70 [facility] Potassium [Moles/Vol] 4.1 mmol/L 3.5-5.1 [facility] Protein [Mass/Vol] 7.7 g/dL 6.4-8.2 [facility] Sodium [Moles/Vol] 138 mmol/L 136-145 [facility] WBC (Bld) [#/Vol] 9.8 10*3/uL 4.4-11.0 [facility] Bilirubin Test strip Ql (U)O rdered By: Rod Castellanos on 09-15-2023 Bilirubin Ql (U) 3 mg/dL Negative [facility] Comment on above: COLOR OF URINE MAY A FFECT DIPSTICK RESULTS. Determination of erythrocyte mean corpuscular volume (MCV)Ordered By: Bertram Yi on 09-15-2023 MCV (RBC) [Entitic vol] 88.9 fL 80-94 [facility] Direct bilirubinOrdered By: Bertram Yi on 09-15-2023 Bilirubin.direct [Mass/Vol] 0.22 mg/dL 0.00-0.30 [facility] Erythrocyte distribution wid th ratioOrdered By: Bertram Yi on 09-15-2023 Erythrocyte distribution width (RBC) [Ratio] 15.1 % 11.6-14.6 [facility] Erythrocyte distribution wid th standard deviationOrdered By: Bertram Yi on 09-15-2023 Erythrocyte distribution width (RBC) [Entitic vol] 48.6 fL 35.1-43.9 [facility] Hematocrit Auto (Bld) [Volum e fraction]Ordered By: Bertram Yi on 09-15-2023 Hematocrit (Bld) [Volume fraction] 54.6 % 40-54 [facility] Hyaline casts LM.LPF (Urine sed) [#/Area]Ordered By: Rod Castellanos on 09-15-2023 Hyaline casts (Urine sed) [#/Area] 0 /[LPF] 0-5 [facility] Immature granulocytes/100 WB C Auto (Bld)Ordered By: Bertram Yi on 09-15-2023 Immature granulocytes/100 WBC (Bld) 0.700 % 0.0-0.9 [facility] Comment on above: IG% - Immature Granu locytes (promyelocytes, myelocytes and metamyelocytes) > 1% indicates that a LEFT SHIFT is Present. Ketones Test strip Ql (U)Ord ered By: Rod Castellanos on 09-15-2023 Ketones Ql (U) 50 mg/dl Negative [facility] Laboratory - Chemistry and C hemistry - challengeOrdered By: Rod Castellanos on 09-15-2023 Sodium (U) [Moles/Vol] 16 mmol/L Not Establ. [facility] Cholesterol in HDL [Mass/Vol] 45 mg/dL >40 [facility] Comment on above: The drugs N-Acetylcy steine and Metamizole may falsely depress this assay. Reference Range HDL <40 mg/dL Low HDL Cholesterol HDL >or= 60 mg/dL High HDL Cholesterol Cholesterol in LDL [Mass/Vol] 94 mg/dL 0-130 [facility] Laboratory - Chemistry and C hemistry - challengeOrdered By: Bertram Yi on 09-15-2023 Natriuretic peptide B (Bld) [Mass/Vol] 165.1 pg/mL 0-100 [facility] ALP [Catalytic activity/Vol] 70 U/L 45-117 [facility] ALT [Catalytic activity/Vol] 48 U/L 16-61 [facility] CO2 [Moles/Vol] 22.0 mmol/L 21.0-32.0 [facility] Globulin (S) [Mass/Vol] 4.3 g/dL 2.2-4.2 [facility] Lipase [Catalytic activity/Vol] 38 U/L 13-75 [facility] Comment on above: Please note:LIPASE r evised reference range effective 22. New Lipase methodology. Expected to produce lower values than the previous assay method. NEW Reference Range: 13 - 75 U/L Magnesium [Mass/Vol] 2.3 mg/dL 1.6-2.6 [facility] Urea nitrogen/Creatinine [Mass ratio] 14.1 mg/mg 10-20 [facility] Laboratory - CoagulationOrde red By: Bertram Yi on 09-15-2023 INR Coag (Bld) [Relative time] 1.0 {INR} [facility] PT Coag (PPP) [Time] 13.6 s 11.7-14.9 [facility] Laboratory - Hematology and Cell countsOrdered By: Bertram Yi on 09-15-2023 MCH (RBC) [Entitic mass] 29.8 pg 27.0-32.0 [facility] MCHC (RBC) [Mass/Vol] 33.5 g/dL 32-36 [facility] Nucleated RBC/100 WBC (Bld) [Ratio] 0 % 0-5 [facility] Platelet mean volume (Bld) [Entitic vol] 9.4 fL 6.2-12.0 [facility] Platelets (Bld) [#/Vol] 177 10*3/uL 150-450 [facility] Mucus LM Ql (Urine sed)Order ed By: Rod Castellanos on 09-15-2023 Mucus Ql (Urine sed) 3+ /hpf [facility] Nitrite Test strip Ql (U)Ord ered By: Rod Castellanos on 09-15-2023 Nitrite Ql (U) Negative Negative [facility] No Panel InformationOrdered By: Rod Castellanos on 09-15-2023 Urine RBC 0-5 SEEN /hpf 0-5 [facility] VLDL Cholesterol 35 mg/dL 5-40 [facility] No Panel InformationOrdered By: Bertram Yi on 09-15-2023 Estimated Creatinine Clearance Calc 79.58 ml/min [facility] Estimated GFR (MDRD) Amer 65 mL/min >60 [facility] Comment on above: GFR Calc Estimated GFR (MDRD) Non-Af Amer 53 mL/min >60 [facility] Comment on above: Non- GFR Calc Troponin I High Sensitivity 20 pg/mL 3.0-78.0 [facility] Comment on above: Please Note: New Yary t Units and Gender Specific Reference Ranges. For more information see Policy Stat Procedure [place] High Sensitivity Troponin (TNIH) and attachments. Protein Test strip Ql (U)Ord ered By: Rod Castellanos on 09-15-2023 Protein Ql (U) 30 mg/dl Negative [facility] RBC Auto (Bld) [#/Vol]Ordere d By: Bertram Yi on 09-15-2023 RBC (Bld) [#/Vol] 6.14 10*6/uL 4.6-6.2 [facility] Review by pathologistOrdered By: Bertram Yi on 09-15-2023 Pathologist review Cesar (Unsp spec) [Interp] May foll [facility] Serum or plasma calcium jarrod urement (mass/volume)Ordered By: Bertram Yi on 09-15-2023 Calcium [Mass/Vol] 9.2 mg/dL 8.5-10.1 [facility] Serum or plasma creatinine m easurement (mass/volume)Ordered By: Bertram Yi on 09-15-2023 Creatinine [Mass/Vol] 1.42 mg/dL 0.70-1.30 [facility] Comment on above: The validity of the calculated GFR & GFRAA in patients over 70 years has not been determined. Clinical correlation is essential. Serum or plasma thyroid stim ulating hormone (TSH) measurement (units/volume)Ordered By: Bertram Yi on 09-15-2023 TSH Qn 2.82 uIU/mL 0.358-3.74 [facility] Serum or plasma thyroid stim ulating hormone (TSH) measurement (units/volume)Ordered By: Rod Castellanos on 09-15-2023 TSH Qn 3.10 uIU/mL 0.358-3.74 [facility] Serum or plasma urea nitroge n measurement (mass/volume)Ordered By: Bertram Yi on 09-15-2023 Urea nitrogen [Mass/Vol] 20 mg/dL 7-18 [facility] Squamous epithelial cells de tection in urine sediment by light microscopyOrdered By: Rod Castellanos on 09-15-2023 Epithelial cells.squamous LM Ql (Urine sed) 0 SEEN /hpf 0-5 [facility] Thin prep Papanicolaou smear with manual screeningOrdered By: Rod Castellanos on 09-15-2023 Protein (U) [Mass/Vol] 35.9 mg/dL 0.0-11.8 [facility] Thin prep Papanicolaou smear with manual screeningOrdered By: Bertram Yi on 09-15-2023 Thin prep Papanicolaou smear with manual screening 3.4 g/dL 3.2-5.0 [facility] Thin prep Papanicolaou smear with manual screening 32 U/L 15-37 [facility] Thin prep Papanicolaou smear with manual screening 11 5-15 [facility] Urine blood detectionOrdered By: Rod Castellanos on 09-15-2023 RBC Ql (U) 150 /ul Negative [facility] Urine clarityOrdered By: Terri Castellanos on 09-15-2023 Clarity (U) Clear Clear [facility] Urine color determinationOrd ered By: Rod Castelalnos on 09-15-2023 Color (U) Yellow Yellow [facility] Urine creatinine measurement (mass/volume)Ordered By: Rod Castellanos on 09-15-2023 Creatinine (U) [Mass/Vol] 427.00 mg/dL NO RANGE EST. [facility] Urine glucose detectionOrder ed By: Rod Castellanos on 09-15-2023 Glucose Ql (U) Normal mg/dl Normal [facility] Urine leukocyte esterase det ection by dipstickOrdered By: Rod Castellanos on 09-15-2023 Leukocyte esterase Test strip Ql (U) 25 /ul Negative [facility] Urine pHOrdered By: Alissa Castellanos on 09-15-2023 pH (U) 5.0 [pH] 5.0 - 8.0 [facility] Urine protein/creatinine mas s ratioOrdered By: Rod [facility] Center[facility] on 09-15-2023 Protein/Creatinine (U) [Mass ratio] 84 mg/g CRE 0-200 [facility] Urine sediment bacteria coun t by microscopy (number/high power field)Ordered By: Rod Castellanos on 09-15-2023 Bacteria LM.HPF (Urine sed) [#/Area] 0 /[HPF] None Seen [facility] Urine specific gravity measu rementOrdered By: Rod Castellanos on 09-15-2023 Specific gravity (U) [Rel density] 1.025 1.002-1.03 0 [facility] Urine urobilinogen measureme ntOrdered By: Rod Castellanos on 09-15-2023 Urobilinogen Ql (U) 4 mg/dl Normal [facility] Whole blood hemoglobin A1c/t otal hemoglobin ratio (mass fraction)Ordered By: Rod Castellanos on 09-15-2023 HbA1c (Bld) [Mass fraction] 5.8 % 3.8-5.6 [facility] Comment on above: Normal < 5.7 % Predi abetic 5.7 - 6.4 % Diabetic >or= 6.5 % Please note range changes. Winsome 09-25-2020 GARTHN Telephone (FAMPWS) MARCEL TURCIOS ([id number]) 1960 M Date Time Provider Department 09/25/20 MICHELLE TRAMMELL During your visit today, we recorded the following information about you: Odilia Barone Ma 09/25/2020 8:08 AM Signed [facility] for [facility] supplies. See form, if able to complete fax to [phone]. FYI: Pt has not been seen in [...] 3:21 PM Signed Form faxed back to [facility] notifying them that this pt is now [...] - Fully Assessed Reason for Visit: Forms [013] Cmt: Buck-PAP supplies Prescriptions as of 09/25/2020 [...] hernia [K43.2] 04/15/2017 Encounter Status:Closed by ODILIA BRAONE MA on 09/25/20 Normal [facility] .CRYBF Path Reviewon 020 CRYPF Path Review Rare crystals consis tent with calcium pyrophosphate are present. [facility] ([place]) Comment on above: Result Comment: Elec tronically signed by: RIGOBERTO ARNOLD 07.11.2019 11:59 EST Performed By: #### Keyla CAIN CRYBFPR #### [place] [address] #### SYNCT #### [place] [id number] CRYon 07-08-2019 Crystal BF Sp Synovial fluid [facility] ([place]) Comment on above: Performed By: #### Keyla CAIN CRYBFPR #### [place] [address] #### SYNCT #### [place] [address] SYNCTon 07-08-2019 Cells Counted (synovial) 100 [facility] ([place]) Comment on above: Performed By: #### Keyla CAIN CRYBFPR #### [place] [address] #### SYNCT #### [address] [address] Eosinophils/100 WBC (Bld) 1 % Normal [facility] ([place]) Comment on above: Performed By: #### C RYBF, CRYBFPR #### [place] [address] #### SYNCT #### [address] [address] Lymphocytes/100 WBC (Bld) 24 % Normal [facility] ([place]) Comment on above: Performed By: #### C RYBF, CRYBFPR #### [place] [address] #### SYNCT #### [address] [address] Mononuclear Cell % (synovial) 58 % Normal [facility] ([place]) Comment on above: Performed By: #### C RYBF, CRYBFPR #### [place] [address] #### SYNCT #### [address] [address] Neutrophils/100 WBC (Bld) 17 % Normal 0-24 [facility] ([place] Comment on above: Performed By: #### C RYBF, CRYBFPR #### [place] [address] #### SYNCT #### [address] [address] Clarity (U) Slightly Bloody Normal [facility] ([place] Comment on above: Performed By: #### C RYBF, CRYBFPR #### [place] [address] #### SYNCT #### [address] [address] Color (U) Yellow Normal [facility] ([place]) Comment on above: Performed By: #### C RYBF, CRYBFPR #### [place] [address] #### SYNCT #### [place] [address] [place], [place] [address] White Blood Cells (synovial) 200 /mm3 High 0-199 [facility] ([place] Comment on above: Performed By: #### C RYBF, CRYBFPR #### [place] [address] #### SYNCT #### [address] [address] .Urinalysis Microscopic (AO) on 02-28-2019 RBC (U) [#/Vol] 5-10 None Seen [facility] ([place]) Comment on above: Performed By: #### U A, UAMICAO #### [place] [address] UA Mucous Trace Normal [facility] ([place] Comment on above: Performed By: #### U A, UAMICAO #### [place] [address] UA Squam Epithelial 0-5 None Seen [facility] ([place]) Comment on above: Performed By: #### U A, UAMICAO #### [place] [address] UA WBC 0-5 None Seen [facility] ([place] Comment on above: Performed By: #### U A, UAMICAO #### [place] [address] UAon 02-28-2019 Color (U) Yellow Normal [facility] ([place] Comment on above: Performed By: #### U A, UAMICAO #### [place] [address] Glucose (U) [Mass/Vol] Negative Normal Negative [facility] ([place]) Comment on above: Performed By: #### U A, UAMICAO #### [place] [address] Ketones Ql (U) Negative Normal Negative [facility] ([place] Comment on above: Performed By: #### U A, UAMICAO #### [place] [address] UA Appear Clear Normal Clear [facility] ([place] Comment on above: Performed By: #### U A, UAMICAO #### [place] [address] UA Blood Moderate Negative [facility] ([place] Comment on above: Performed By: #### U A, UAMICAO #### [place] [address] UA Leuk Est Negative Normal Negative [facility] ([place] Comment on above: Performed By: #### U A, UAMICAO #### [place] [address] UA Nitrite Negative Normal Negative [facility] ([place] Comment on above: Performed By: #### U A, UAMICAO #### [place] [address] UA pH 6.0 Normal 5.0 - 8.0 [facility] ([place] Comment on above: Performed By: #### U A, UAMICAO #### [place] [address] UA Protein Trace Normal Negative [facility] ([place] Comment on above: Performed By: #### U A, UAMICAO #### [place] [address] UA Spec Grav 1.025 Normal 1.015-1.02 5 [facility] ([place] Comment on above: Performed By: #### U A, UAMICAO #### [place] [address] UA Specimen Type Clean Catch Normal [facility] ([place] Comment on above: Performed By: #### U A, UAMICAO #### [place] [address] UA Urobilinogen 0.2 E.U./dL Normal 0.2-1.0 [facility] ([place] Comment on above: Performed By: #### U A, UAMICAO #### [place] [address] Urobilinogen Qn (U) Negative Normal Negative [facility] ([place]) Comment on above: Performed By: #### U A, UAMICAO #### [place] [address] ANES [place] 05-26-2017 ANES POST HNO ID: [id number] thor: Denise Ruvalcabaervice: AnesthesiologyAuthor Type: AnesthesiologistType: Anesthesia [...] 26, 2017 : 1:29 PM PAGER/CONTACT #: [phone] [facility] ANES PREOPon 05-26-2017 ANES PREOP HNO ID: [id number] thor: Denise Leeice: AnesthesiologyAuthomanda Type: AnesthesiologistType: Anesthesia PreOpFiled: 05/26/2017 8:44 AMNote [...] and potassium results:Potassium 4.5 08/06/2015ANES DOS/PREOP NOTE:Vitals: 757BP: 138/83Pulse: 94Resp: 18Temp: 37 ?C (98.6 ?F)TempSrc: [...] Date- APPENDECTOMY 1979- COLONOSCOP W/ OR W/O [facility] SPEC 04/26/2017 Colonoscopy- LEFT HEART CATH,PERCUTANEOUS 2001- [...] otherwise documented in primary service progress notes: [facility] updated information obtained within 48 hours ofSurgery/Procedure.SIGNATAUGUSTUS E: Denise Arcos MD PATIENT NAME: Marcel TurciosDATE: May 26, 2017 : 8:43 AM CSN: [id number] [facility] BRIEF OP NOTon 05-26-2017 BRIEF OP NOT HNO ID: [id number] thor: Cecilia Stevenervice: General SurgeryAuthor Type: PhysicianType: Brief Op NoteFiled: 05/26/2017 11:34 AMNote Text:BRIEF OPERATIVE NOTATION FOR SURGICAL PROCEDURE.Marcel Turcios 1960 [id number] maleLOG ID: [id number]/Procedure Date: 05/26/2017Incision/Procedure Start Time: 10:22 AMIncision Close/Procedure End Time: 11:28 AMSurgeon(s)/Proceduralist(s ) and Master Control Technician(s):Surgeon(s) and Role: * Cecilia Crisostomo - PrimaryRegistered Nurse Directional Drill Operator: Krissy BhaktaRn) MARGI TangREFERRING PHYSICIAN:OutpatientDEPT: WQ PROVIDER: Volodymyr POS:[id number] : GeneralASA CLASS: 3 - SevereDIAGNOSIS: right inguinal herniaPROCEDURE: laparoscopic right inguinal hernia repair with mesh - [id number]: 1700EBL: 20URINE - 200Specimens: noneADDITIONAL DIAGNOSES:FINDINGS: indirect RIHCOMPLICATIONS: NonePMHx -PAST MEDICAL HISTORYDiagnosis Date- Ankylosis of lower leg joint- Chronic obstructive asthma, unspecified- Depressive disorder, not elsewhere classified- Esophageal reflux- Morbid obesity (HCC)- Panic anxiety syndrome 07/26/2010- Posttraumatic stress disorder- Unspecified sleep apneaCOMORBIDITIES - ObesityPost Op Occurrences - NoneWound Classification - CleanOperative note dictated in the dictation system.- [id number] Crisostomo MD [facility] NURSING PROGon 05-26-2017 NURSING PROG HNO ID: [id number] thor: Rosana (Rn) WESLEY Coradoervice: (none)Author Type: Registered NurseType: Nursing Progress NoteFiled: 05/26/2017 12:34 PMNote Text: Nursing Progress NotePatient Name: Marcel TurciosMRN: [id number] Location: [place] Surgery/ME Surgery Pt offered a snack and a Vicodin but refuses. The pill is worse than howmuch it helps. Don't think about giving me that. Pt eating ice chips,joking asking staff if he can have an ice cream sundae. Resp status hasimproved. Wheezing has lessened and improved air entry noted. Skin pink,warm and dry. Pt on room air and pulse ox 93% at this time.This note was completed by: Rosana Corado RN [facility] NURSING PROG [facility] ID: [id number] thor: Rosana (Rn) [place], WESLEYervice: (none)Author Type: Registered NurseType: Nursing Progress NoteFiled: 05/26/2017 12:26 PMNote Text: Nursing Progress NotePatient Name: Marcel Michaels [facility] MedicineN: [id number] Location: [place] Surgery/[place] Surgery Pt states, Pain is all in the mind and I don't want any more IV meds. Noway. Pt encouraged to be comfortable but continues to decline meds.Joking and laughing with all staff. 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 Wide awake. Rx still in progresswith emergency medical technician/driver.This note was completed by: Rosana Corado RN [facility] NURSING PROG O ID: [id number] thor: Rosana (Rn) WESLEY Coradoervice: (none)Author Type: Registered NurseType: Nursing Progress NoteFiled: 05/26/2017 12:11 PMNote Text: Nursing Progress NotePatient Name: Marcel [facility] HospitalN: [id number] Location: [place] Surgery/[place] Surgery Pt came out of surgery sleeping [...] note was completed by: Rosana Corado RN Normal [facility] OPERATIVE NOon 05-26-2017 OPERATIVE NO HNO ID: [id number] thor: Cecilia Stevenervice: General SurgeryAuthor Type: PhysicianType: Operative ReportFiled: 05/27/2017 6:58 AMNote Text:[facility]- Operative ReportMOSEMARCEL St JDOB: 1960 AGE: 56 SEX: MMRN: [id number] ACCTNUM: [id number] SVC: GENS LOCATION: [address] PHYSICIAN: Cecilia Crisostomo M.D.DATE OF PROCEDURE: 05/26/2017SURGEON: Cecilia Crisostomo M.D.LINEMAN A CLASS: NONEANESTHESIA: Endotracheal.PREOPERATIVE DIAGNOSIS(ES): Right lower quadrant pain. Question of right inguinal hernia versus incisional hernia.POSTOPERATIVE DIAGNOSIS(ES): Indirect right inguinal hernia.NAME OF OPERATION: Laparoscopic right inguinal hernia repair with meshusing a Bard 3DMax large size mesh, reference #[id number], lot number [id number], expires 02/22/2021.INDICATIONS:ESTIM ATED BLOOD LOSS: 20 mL.COMPLICATIONS: [...] was then closed with a running 1 Rjepbyaivaw-eu-vsfck suture. The 5 ports under direct visualization with nosigns of bleeding. Pneumoperitoneum was released. The umbilical trocarwas removed. The supraumbilical fascia was secured. The skin was closedwith 4-0 Biosyn subcuticular suture. Steri-Strips and dressings wereapplied. The patient was brought to recovery room in stable condition.Cecilia Crisostomo M.D.General SurgeryRG:[id number]: 05/26/2017 11:34:26T: 05/26/2017 22:48:44Job #: [id number] [facility] PLAN OF CAREon 05-26-2017 PLAN OF CARE HNO ID: [id number] thor: Cassandra Kitchen (Cloth Burler)Service: (none)Author Type: TechnicianType: Plan of CareFiled: 05/26/2017 12:25 PMNote Text:BILINGUAL OPERATOR BEDSIDE DELIVERY SURVEY1. Patient to use [facility] Bedside Delivery - YES2. If fax, patient would like us to fax prescriptions to [facility]. Pharmacy: b. Location: c. Phone:3. Insurance card on file - YES4. Credit card for payment - YESPHARMACY BEDSIDE DELIVERY SERVICEPatient Name: Marcel TurciosMRN: [id number] marked outpatient medications were Filled at: [facility] and delivered tothe patient's bedside to pharm [...] as: ZANTACTake 1 tablet by mouth twice daily.Cassandra Kitchen (Cloth Burler)PAGER: [phone] 2016 12:25 PM [facility] PT EDon 05-26-2017 PT ED HNO ID: [id number] Author: Sonya BhaktaRn) MARGI Engel Service: Nursing Author Type: Registered Nurse Type: Patient Education Filed: 05/26/2017 8:06 AM Note Text: 0801 Procedure explained and questions answered. Pt verbalizes understanding of post-op care. [facility] NURSING PROGon 04-27-2017 NURSING PROG HNO ID: [id number] thor: Audrey (Rn) WESLEY Glasservice: (none)Author Type: Registered NurseType: Nursing Progress NoteFiled: 04/27/2017 8:14 AMNote Text:PACC Nurse Progress NoteHistory AND Physical:PACC [place] PACCOriginal HANDP Date: 04/23/17Labs Within Last 6 Months:CBC: Date 03/08/17 cbc/diff- platelets 143OTHER TEST: Electrolytes, Date 03/08/17 - wnlImaging Within Last 12 Months:N/ACardiac Testing:N/ABMI 42.0Risk Assessment:N/AAnesthesia Review:Hx ZAN- no cpap use Mild COPDNarrative:N/APre-op Considerations:H x PTSD, anxietyPt had colonoscopy 04/26/17Chart Check:Kathrine Glass RNOct2016 8:11 AM [facility] ANES [place] 04-26-2017 ANES POST HNO ID: [id number] thor: Abraham Colliere: AnesthesiologyAuthor Type: AnesthesiologistType: Anesthesia PostOpFiled: 04/26/2017 2:54 PMNote Text:POST ANESTHESIA EVALUATION NOTESERVICE DATE: 04/26/2017SERVICE TIME: 2:54 PMDOB: 1960Vitals: 04/26/1714Temp: 37.3 ?C (99.1 ?F) 36.8 ?C (98.2 ?F) 36.8 ?C (98.2 ?F) 36.8 ?C (98.2?F) 04/26/1714P: 98/56 98/56 137/74 139/91 04/26/1714/30/[id number]: 95 71 82 76 04/26/1714Resp: 18 18 [...] 26, 2017 : 2:54 PM PAGER/CONTACT #: [phone] [facility] ANES PREOPon 04-26-2017 ANES PREOP HNO ID: [id number] thor: Abraham De LeónService: AnesthesiologyAuthor Type: AnesthesiologistType: [...] and potassium results:Potassium 4.5 08/06/2015ANES DOS/PREOP NOTE:Vitals: BP: 140/80Pulse: 101Resp: 18Temp: 37.3 ?C (99.1 ?F)TempSrc: [...] iv infusion 30 mL/hr INTRAVENOUS CONTINUOUS Cecilia CrisostomoLast Rate: 30 mL/hr at 04/26/17 1129 30 [...] otherwise documented in primary service progress notes: [facility] contains updated information obtained within 48 hours ofSurgery/Procedure.SIGNATUR E: Abraham De León MD PATIENT NAME: Marcel TurciosDATE: April 26, 2017 : 11:40 AM CSN: [id number] Normal [facility] HISTORY PHYSICALon HISTORY PHYSICAL HNO ID: [id number] thor: Cecilia Burnett [facility] Psych[facility] CenteranService: General SurgeryAuthor Type: PhysicianType: HANDPFiled: 05/26/2017 9:27 AMNote Text:HISTORY AND PHYSICAL?Marcel [id number]??REFERRING PHYSICIAN: Michelle Trammell MD?CHIEF COMPLAINT: Consult (Consult RLQ abd pain)?HPI: Marcel is a 56 year old male with a complaint of a bulge anddiscomfort in his right lower quadrant area. He has noticed pain in hisright lower quadrant for at least the last 3 months. More recently, henotes are evacuated stools he has to push in the right lower quadrant. Hecan feel a bulge in this area and occasionally has to push this bulgingarea back in to make the discomfort resolved. The pain has beenpersistent to the point that he is presented emerged [place] on 3 differentoccasions at [facility]. 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 His only previous surgical history was appendectomy [...] quadrant spigelian [facility] The planned surgical procedure was discussed [...] been communicated to Dr. Michelle Trammell MD viashared medical record. This note will be forwarded to Dr. Michelle Robert MD.???Diagnoses: (R19.4) Change in bowel habits (primary encounter diagnosis)(K59.00) Constipation, unspecified constipation type(R10.31) RLQ abdominal pain(K43.2) Incisional hernia, without obstruction or gangrene?Anticipated CPT Code: laparoscopic right inguinal hernia repair with mesh- [id number]?Anticipated Anesthetic: General?Patient weight: Blood pressure 158/94, pulse 106. BMI: There is noheight or weight on file to calculate BMI.?Planned antibiotic: Ancef 3gm IVPB security control center operator to OR?SCDs needed - Yes??Return to Clinic: The patient is instructed to follow-up with me forendoscopy in 10 days.? Cecilia Crisostomo MD [facility] NURSING PROGon 04-26-2017 NURSING PROG HNO ID: [id number] thor: Padma (Rn) Lorenzo, WESLEYervice: NursingAuthor Type: Registered NurseType: Nursing Progress NoteFiled: 04/26/2017 1:07 PMNote Text: Nursing Progress NotePatient Name: Marcel TurciosN: [id number] Location: OK Surgery/OK Surgery pt given urinal to void, updated on delay into the OR By . HR 93,PO 94% on RA, call light in reach, daughter at bedside.This note was completed by: Padma Ventura RN [facility] SURGICAL PATHOLOGYon 017 SURGICAL PATHOLOGY [facility]: [id number] Physician: CECILIA CRISOSTOMO MD FINAL DIAGNOSISColon, transverse [...] submitted in one cassette.Gross examination performed at [facility], [address] [place] [address] 04/26/2017 9:36:12 PMPatient ID #: [id number] [id number] Report: 04/28/2017Date of Procedure: 04/26/2017Date of Receipt: 04/26/2017Submitted by: CECILIA CRISOSTOMO MDLocation: MEORDiagnostic interpretation performed at [facility], [address] [place] [address]. [facility] Comment on above: Performed By: #### P ATHS ####[facility] [address] [phone] NURSING PROGon 04-23-2017 NURSING PROG HNO ID: [id number] thor: Mckayla Nobles (Rn) WESLEY Maddenervice: (none)Author Type: Registered NurseType: Nursing Progress NoteFiled: 04/23/2017 9:09 AMNote Text:PACC Nurse Progress NoteHistory AND Physical:PACC Visit Date: 04/23/2017Labs Within Last 6 Months:03/08/2017 CBC - scanned into epic BMP - scanned into epicImaging Within Last 12 Months:CT Scan abd/pelvis [facility] from 02/09/2017Cardiac Testing:Not ordered.BMI :42, Weight 319Risk Assessment:No new consults orderedAnesthesia Review:DOSNarrative:No new testing ordered.Pre-op Considerations:ZAN - does not use CPAPMild COPD - uses inhalersPTSD / DepressionChronic painChart Check:Louis Madden RNOctober 2016 9:04 AM [facility] HOSPon 04-15-2017 HOSP Patient:Yvan Turcios KAMRANRN: Height:6' 1(1.854 m)Weight:319 lb (144.697 kg)Outpatient Medications [...] days for the following basenames: K,HCTProgress Notes ([facility]):Campos Wylie Surg Coord 04/15/2017 11:21 AM Signedpatient scheduled 04-26-2017 and 05-12-[address] Crisostomo in [place] forcolonoscopy and Lap Incisional hernia Campos Wylie Surg CoordProgress Notes ([facility]):Cecilia Crisostomo MD 04/15/2017 1:10 PM SignedHISTORY AND PHYSICALTimaraceli Turcios1959REFERRING PHYSICIAN: Michelle Trammell, [facility] COMPLAINT: Consult (Consult RLQ abd pain)HPI: Marcel [...] emerged [place] on 3 different occasions at [facility].He has had 3 CT scans of the [...] by atruck 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 Therisks, benefits, anticipated outcomes and possible complications were mentioned.Marcel damonands that all hernia repair surgery has a [...] laparoscopic right inguinal hernia repair with mesh -[id number] Anesthetic: GeneralPatient weight: Blood pressure 158/94, pulse 106. BMI: There is no heightor weight on file to calculate BMI.Planned antibiotic: Ancef 3gm IVPB security control center operator to ORSCDs needed - YesReturn to Clinic: The patient is instructed to follow-up with me for endoscopyin 10 days. Cecilia Crisostomo MD [facility] HOSP Patient:Yvan Turcios JMRN: Height:6' 1(1.854 [...] days for the following basenames: K,HCTProgress Notes ([facility]):Heather Hilliard 05/18/2017 1:08 PM SignedPatient has been identified by name and date of : YesRX INSTRUCTIONS:Print and leave at the Medical records front desk specialist. No need to notify patient.Heather Marla SutherlandrOdilia Barone Ma 05/18/2017 1:51 PM SignedPatient has tried contacting the office a few times and is unable to getthrough. Conversation below was cut off and he stopped in the office due tobeing in the middle of moving and his car broke down. Would like to chicken picker anRx for Adderall while he is here. Waiting in the waiting room currently.Odilia Bose CNP, GARTH 05/18/2017 1:56 PM SignedOk to fill.Approved. Handed to patient.OARRS website checked and validated. All prescriptions have been APPROPRIATELYfilled. No suspicious activity was identified.- 05/18/2017 by Gideon Bose CNP Normal [facility] Vital Signs Date Time Vital Sign Value Performing Clinician Facility 01-17-2025 14:00-0400 Body temperature 98.2 [degF] Dr. Jose David Sims MD Work Phone: [facility] 01-17-2025 14:00-0400 Diastolic blood pressure 108 mm[Hg] Dr. Jose David Sims MD Work Phone: 8(415)320-972669 [place] [address] 01-17-2025 14:00-0400 Heart rate 135 /min Dr. Jose David Sims MD Work Phone: 4(936)305-677149 [place] [address] 01-17-2025 14:00-0400 Respiratory rate 21 /min Dr. Jose David Sims MD Work Phone: 5(360)258-257949 [place] [address] 01-17-2025 14:00-0400 SaO2% (BldA) [Mass fraction] 94 % Dr. Jose David Sims MD Work Phone: 3(275)714-580349 [place] [address] 01-17-2025 14:00-0400 Systolic blood pressure 159 mm[Hg] Dr. Jose David Sims MD Work Phone: 1(046)442-062149 [place] [address] 01-17-2025 11:45-0400 Inhaled oxygen flow rate 2 L/min Dr. Jose David Sims MD Work Phone: 0(910)019-969549 [place] [address] 01-17-2025 09:31-0400 Body height 185.[address] Jose David Sims MD Work Phone: 7(614)244-461749 [place] [address] 01-17-2025 09:31-0400 Body mass index (BMI) [Ratio] 48.9 kg/m2 Dr. Jose David Sims MD Work Phone: 7(637)380-437449 [place] [address] 01-17-2025 09:31-0400 Body weight 168.[address] Jose David Sims MD Work Phone: 8(474)708-693049 [place] [address] 12-10-2024 05:56-0400 Body temperature 97.4 [degF] Dr. Jose David Sims MD Work Phone: 7(073)200-483849 [place] [address] 12-10-2024 05:56-0400 Diastolic blood pressure 105 mm[Hg] Dr. Jose David Sims MD Work Phone: 3(791)148-041949 [place] [address] 12-10-2024 05:56-0400 Heart rate 166 /min Dr. Jose David Sims MD Work Phone: 8(107)065-655349 [place] [address] 12-10-2024 05:56-0400 Respiratory rate 24 /min Dr. Jose David Sims MD Work Phone: [facility] 12-10-2024 05:56-0400 SaO2% (BldA) [Mass fraction] 92 % Dr. Jose David Sims MD Work Phone: 3(628)571-131360 [address] 12-10-2024 05:56-0400 Systolic blood pressure 151 mm[Hg] Dr. Jose David Sims MD Work Phone: 9(463)692-548549 [place] [address] 12-09-2024 20:23-0400 Inhaled oxygen flow rate 2 L/min Dr. Jose David Sism MD Work Phone: 9(021)375-332149 [place] [address] 12-09-2024 16:07-0400 Body height 185.[address] Jose David Sims MD Work Phone: 9(210)979-709749 [place] [address] 12-09-2024 16:07-0400 Body weight 166.[address] Jose David Sims MD Work Phone: 0(402)014-927549 [place] [address] 12-09-2024 06:06-0400 Inhaled oxygen concentration 21 % Dr. Jose David Sims MD Work Phone: 0(475)669-811749 [place] [address] 12-09-2024 02:04-0400 Body mass index (BMI) [Ratio] 48.4 kg/m2 Dr. Jose David Sims MD Work Phone: 9(632)330-181949 [place] [address] 12-09-2024 01:00-0400 Body temperature 97.7 [degF] Dr. Jose David Sims MD Work Phone: 5(605)684-507849 [place] [address] 12-09-2024 01:00-0400 Diastolic blood pressure 74 mm[Hg] Dr. Jose David Sims MD Work Phone: 3(146)779-865149 [place] [address] 12-09-2024 01:00-0400 Heart rate 83 /min Dr. Jose David Sims MD Work Phone: 2(079)025-736049 [place] [address] 12-09-2024 01:00-0400 Inhaled oxygen concentration 14 % Dr. Jose David Sims MD Work Phone: 2(111)275-442449 [place] [address] 12-09-2024 01:00-0400 Respiratory rate 18 /min Dr. Jose David Sims MD Work Phone: 0(714)008-592549 [place] [address] 12-09-2024 01:00-0400 Systolic blood pressure 122 mm[Hg] Dr. Jose David Sims MD Work Phone: 6(855)703-284149 [place] [address] 12-08-2024 21:14-0400 Body mass index (BMI) [Ratio] 49.6 kg/m2 Dr. Jose David Sims MD Work Phone: 1(776)806-649249 [place] [address] 12-08-2024 21:14-0400 Body weight 170.[address] Jose David Sims MD Work Phone: 2(673)998-535149 [place] [address] 12-08-2024 21:08-0400 Body height 185.[address] Jose David Sims MD Work Phone: 4(305)440-682649 [place] [address] 12-08-2024 16:44-0400 Body temperature 98.4 [degF] Dr. Jose David Sims MD Work Phone: 5(908)577-758949 [place] [address] 12-08-2024 16:44-0400 Diastolic blood pressure 117 mm[Hg] Dr. Jose David Sims MD Work Phone: 9(873)614-418149 [place] [address] 12-08-2024 16:44-0400 Heart rate 107 /min Dr. Jose David Sims MD Work Phone: 2(243)912-174449 [place] [address] 12-08-2024 16:44-0400 Inhaled oxygen flow rate 2 L/min Dr. Jose David Sims MD Work Phone: 7(650)271-016049 [place] [address] 12-08-2024 16:44-0400 Respiratory rate 20 /min Dr. Jose David Sims MD Work Phone: 9(251)665-050549 [place] [address] 12-08-2024 16:44-0400 SaO2% (BldA) [Mass fraction] 96 % Dr. Jose David Sims MD Work Phone: 1(620)005-802949 [place] [address] 12-08-2024 16:44-0400 Systolic blood pressure 181 mm[Hg] Dr. Jose David Sims MD Work Phone: 4(259)047-041349 [place] [address] 12-08-2024 16:40-0400 Body height 185.[address] Jose David Sims MD Work Phone: 7(462)238-545449 [place] [address] 12-08-2024 16:40-0400 Body mass index (BMI) [Ratio] 49.4 kg/m2 Dr. Jose David Sims MD Work Phone: 8(245)188-653649 [place] [address] 12-08-2024 16:40-0400 Body weight 169.[address] Jose David Sims MD Work Phone: 4(316)501-016849 [place] [address] 12-08-2024 16:28-0400 Body temperature 97.9 [degF] Dr. Jose David Sims MD Work Phone: 5(125)218-034849 [place] [address] 12-08-2024 16:28-0400 Diastolic blood pressure 89 mm[Hg] Dr. Jose David Sims MD Work Phone: 7(993)154-779449 [place] [address] 12-08-2024 16:28-0400 Heart rate 103 /min Dr. Jose David Sims MD Work Phone: 6(476)605-610849 [place] [address] 12-08-2024 16:28-0400 Respiratory rate 19 /min Dr. Jose David Sims MD Work Phone: 2(475)556-253249 [place] [address] 12-08-2024 16:28-0400 SaO2% (BldA) [Mass fraction] 93 % Dr. Jose David Sims MD Work Phone: 0(866)646-855249 [place] [address] 12-08-2024 16:28-0400 Systolic blood pressure 139 mm[Hg] Dr. Jose David Sims MD Work Phone: 9(333)004-174949 [place] [address] 12-08-2024 15:25-0400 Inhaled oxygen concentration 21 % Dr. Jose David Sims MD Work Phone: 3(505)346-654849 [place] [address] 12-08-2024 12:00-0400 Body mass index (BMI) [Ratio] 49.9 kg/m2 Dr. Jose David Sims MD Work Phone: 0(159)715-014249 [place] [address] 12-08-2024 12:00-0400 Body weight 171.[address] Jose David Sims MD Work Phone: 1(705)754-257749 [place] [address] 12-08-2024 11:59-0400 Body height 185.[address] Jose David Sims MD Work Phone: 9(104)187-898749 [place] [address] 09-16-2023 14:08-0400 Body temperature 98.1 [degF] No Primary Care Physician [facility] 09-16-2023 14:08-0400 Diastolic blood pressure 98 mm[Hg] No Primary Care Physician [facility] 09-16-2023 14:08-0400 Heart rate 87 /min No Primary Care Physician [facility] 09-16-2023 14:08-0400 Respiratory rate 18 /min No Primary Care Physician [facility] 09-16-2023 14:08-0400 SaO2% (BldA) [Mass fraction] 94 % No Primary Care Physician [facility] 09-16-2023 14:08-0400 Systolic blood pressure 153 mm[Hg] No Primary Care Physician [facility] 09-16-2023 12:15-0400 Body height 185.42 cm No Primary Care Physician [facility] 09-16-2023 12:15-0400 Body weight 164.38 kg No Primary Care Physician [facility] 09-16-2023 08:03-0400 Inhaled oxygen flow rate 2 L/min No Primary Care Physician [facility] 09-15-2023 16:53-0400 Body mass index (BMI) [Ratio] 47.8 kg/m2 No Primary Care Physician [facility] 09-15-2023 16:00-0400 Body temperature 97.4 [degF] [facility] 09-15-2023 16:00-0400 Diastolic blood pressure 73 mm[Hg] [facility] 09-15-2023 16:00-0400 Heart rate 98 /min [facility] 09-15-2023 16:00-0400 Respiratory rate 24 /min [facility] 09-15-2023 16:00-0400 SaO2% (BldA) [Mass fraction] 98 % [facility] 09-15-2023 16:00-0400 Systolic blood pressure 128 mm[Hg] [facility] 09-15-2023 14:00-0400 Inhaled oxygen flow rate 2 L/min [facility] 09-15-2023 11:34-0400 Body mass index (BMI) [Ratio] 41.9 kg/m2 [facility] 09-15-2023 11:34-0400 Body weight 144.3 kg [facility] 09-15-2023 11:19-0400 Body height 185.42 cm [facility] Encounters Encounter Date Encounter Type Care Provider Facility Start: 01-17-2025 Evaluation and management of inpatient Dr. Jaimie Okeefe MD -[facility] Work Phone: Start: 01-16-2025 End: 01-16-2025 Emergency department patient visit ANUP CURRY DO [facility] Start: 12-10-2024 Non-patient / Non-visit Dr. Jesse Urban MD -[facility] Start: 12-10-2024 Non-patient / Non-visit Dr. Odilia Burgos DO -[facility] Work Phone: Start: 12-09-2024 ambulatory Jesse Urban Facility:[facility] Start: 12-09-2024 Non-patient / Non-visit Dr. Jesse Urban MD -[facility] Start: 12-09-2024 ambulatory Jose David Sims Facility:[facility] Start: 12-09-2024 End: 12-10-2024 Evaluation and management of inpatient Dr. Odilia Burgos DO -[facility] Work Phone: Start: 12-08-2024 ambulatory Jose David Sims Facility:[facility] Start: 12-08-2024 End: 12-08-2024 Evaluation and management of inpatient Dr. Mis Edmondson MD -[facility] Work Phone: Start: 12-07-2024 End: 12-07-[address] Jose David Sims MD Work Phone: [facility] Work Phone: Start: 12-07-2024 End: 12-07-[address] Jose David Sims MD -[facility] Start: 12-07-2024 End: 12-07-2024 ambulatory Jose David Sims Facility:[facility] Start: 09-16-2023 Non-patient / Non-visit [facility] Work Phone: Start: 09-15-2023 Non-patient / Non-visit [facility] Start: 09-15-2023 End: 09-16-2023 Evaluation and management of inpatient [facility] Work Phone: Start: 05-26-2017 End: 05-26-2017 Ambulatory [facility] Start: 04-26-2017 End: 04-26-2017 [facility] Procedures Date Procedure Procedure Detail Performing Clinician Start: 01-17-2025 Plain chest X-ray Dr. Rosario Sims MD Work Phone: Start: 01-17-[address] Jose David Sims MD Work Phone: Start: 01-17-2025 D-dimer assay, quantitative Dr. Jose David Sims MD Work Phone: Comment on above: D-Dimer ELEVATED (>0 .49): Additional studies and clinicalassessments are indicated to conclude diagnosis of:Deep Vein Thrombosis (DVT) or Pulmonary Embolism (PE)CRITICAL VALUE CALLED TO TERELL KISER (ER)01/17/25 1245 Sergio Rosas.RESULTS READ BACK BY SAME. Start: 01-17-[address] Jose David Sims MD Work Phone: Start: 12-09-2024 Gram stain microscopy Tessa Sims MD Work Phone: Start: 12-09-[address] Jose David Sims MD Work Phone: Start: 12-09-[address] Jose David Sims MD Work Phone: Start: 12-09-[address] Jose David Sims MD Work Phone: Start: 12-09-[address] Jose David Sims MD Work Phone: Start: 12-09-2024 Urnls dip stick/tabl et reagent auto microscopy Dr. Jose David Sims MD Work Phone: Start: 12-09-[address] Jose David Sims MD Work Phone: Start: 12-09-2024 Serum inorganic phos phate measurement Dr. Jose David Sims MD Work Phone: Start: 12-09-2024 Carbon dioxide measu rement, partial pressure Dr. Jose David Sims MD Work Phone: Start: 12-09-2024 Gases blood o2 satur ation only direct jarrod Dr. Jose David Sims MD Work Phone: Start: 12-09-2024 Measurement of parti al pressure of oxygen in blood Dr. Jose David Sims MD Work Phone: Start: 12-09-[address] Jose David Sims MD Work Phone: Start: 12-08-2024 CT of chest without contrast Dr. Jose David Sims MD Work Phone: Start: 12-08-2024 X-ray of chest, PA a nd lateral views Dr. Jose David Sims MD Work Phone: Start: 12-08-[address] Jose David Sims MD Work Phone: Start: 12-08-2024 X-ray of chest, PA a nd lateral views Dr. Jose David Sims MD Work Phone: Start: 12-08-2024 D-dimer assay, quantitative Dr. Jose David Sims MD Work Phone: Comment on above: NORMAL D-Dimer level (<0.50) indicates no DVT or PE. Start: 12-08-[address] Jose David Sims MD Work Phone: Start: 09-15-2023 Plain chest X-ray Appendectomy [employer] Hernia of abdominal wall (disorder) [employer] Injury of knee (disorder) [employer] Plan of Treatment Date Care Activity Detail Author Start: 01-18-2025 Electrocardiographic procedure [facility] Start: 01-18-2025 Vital signs measurements [facility] Start: 01-18-2025 Vital signs measurements [facility] Start: 01-18-2025 Vital signs measurements [facility] Start: 01-18-2025 Vital signs measurements [facility] Start: 01-18-2025 Complete blood count [facility] Start: 01-18-2025 Vital signs measurements [facility] Start: 01-18-2025 Vital signs measurements [facility] Start: 01-18-2025 Vital signs measurements [facility] Start: 01-17-2025 Vital signs measurements [facility] Start: 01-17-2025 Vital signs measurements [facility] Start: 01-17-2025 Vital signs measurements [facility] Start: 01-17-2025 Vital signs measurements [facility] Start: 01-17-2025 Assessment of risk of venous thromboembolism [facility] Start: 01-17-2025 Clostridioides difficile DNA [Presence] in Unspecified specimen by TITI with probe detection [facility] Start: 01-17-2025 Enteric precautions [facility] Start: 01-17-2025 Incentive spirometry [facility] Start: 01-17-2025 Insertion of catheter into peripheral vein [facility] Start: 01-17-2025 Measuring intake and output [facility] Start: 01-17-2025 Nucleic acid assay [facility] Start: 01-17-2025 Oxygen therapy [facility] Start: 01-17-2025 Plain X-ray abdomen Abdomen Single View (Portable) [facility] Start: 01-17-2025 Providing care according to standard [facility] Start: 01-17-2025 Provision of activity privileges [facility] Start: 01-17-2025 Referral to occupational therapist [facility] Start: 01-17-2025 Referral to service [facility] Start: 01-17-2025 Respiratory pathogens DNA and RNA panel - Respiratory specimen by TITI with probe detection [facility] Start: 01-17-2025 SARS-CoV-2 (COVID-19) Ag [Presence] in Respiratory specimen by Rapid immunoassay [facility] Start: 01-17-2025 Taking nasal swab [facility] Start: 01-17-2025 Urinalysis complete panel - Urine [facility] Start: 01-17-2025 [facility] Start: 01-17-2025 Electrocardiographic procedure [facility] Start: 01-17-2025 Urinary bladder residual urine study [facility] Start: 01-17-2025 Vital signs measurements [facility] Start: 01-17-2025 Verification routine [facility] Start: 01-17-2025 Admission procedure [facility] Start: 01-17-2025 Hospital admission, emergency, from emergency room, medical nature [facility] Start: 01-17-2025 End: 01-17-2025 [facility] Start: 01-17-2025 Continuous pulse oximetry [facility] Start: 01-17-2025 Dual pressure spontaneous ventilation support [facility] Start: 12-10-2024 Consultation [facility] Start: 12-10-2024 Suicide precautions [facility] Start: 12-10-2024 Inhalation therapy procedure [facility] Start: 12-10-2024 Patient discharge [facility] Start: 12-09-2024 Bacteria identified in Urine by Culture Urine Culture [facility] Start: 12-09-2024 [facility] Start: 12-09-2024 Assessment of risk of venous thromboembolism [facility] Start: 12-09-2024 Incentive spirometry [facility] Start: 12-09-2024 Insertion of catheter into peripheral vein [facility] Start: 12-09-2024 Measuring intake and output [facility] Start: 12-09-2024 Oxygen therapy [facility] Start: 12-09-2024 Patient referral to dietitian [facility] Start: 12-09-2024 Physiotherapy of chest [facility] Start: 12-09-2024 Providing care according to standard [facility] Start: 12-09-2024 Provision of activity privileges [facility] Start: 12-09-2024 Referral to convention services manager [facility] Start: 12-09-2024 Referral to occupational therapist [facility] Start: 12-09-2024 Referral to service [facility] Start: 12-09-2024 Tobacco use cessation education [facility] Start: 12-09-2024 [facility] Start: 12-09-2024 Following clinical pathway protocol [facility] Start: 12-09-2024 Hospital admission, emergency, from emergency room, medical nature [facility] Start: 12-09-2024 Respiratory pathogens DNA and RNA panel - Respiratory specimen by TITI with probe detection [facility] Start: 12-09-2024 SARS-CoV-2 (COVID-19) Ag [Presence] in Respiratory specimen by Rapid immunoassay [facility] Start: 12-09-2024 Verification routine [facility] Start: 12-09-2024 Admission procedure [facility] Start: 12-09-2024 Urinalysis complete panel - Urine [facility] Start: 12-09-2024 [facility] Start: 12-08-2024 [facility] Start: 12-08-2024 Oxygen therapy [facility] Start: 12-08-2024 Assessment of risk of venous thromboembolism [facility] Start: 12-08-2024 Insertion of catheter into peripheral vein [facility] Start: 12-08-2024 Measuring intake and output [facility] Start: 12-08-2024 Providing care according to standard [facility] Start: 12-08-2024 Provision of activity privileges [facility] Start: 12-08-2024 Referral to convention services manager [facility] Start: 12-08-2024 Referral to occupational therapist [facility] Start: 12-08-2024 Referral to service [facility] Start: 12-08-2024 [facility] Start: 12-08-2024 Following clinical pathway protocol [facility] Start: 12-08-2024 Thyroid stimulating hormone measurement [facility] Start: 12-08-2024 CT of chest without contrast Chest without Contrast [facility] Start: 12-08-2024 Admission procedure [facility] Start: 12-08-2024 Hospital admission, emergency, from emergency room, medical nature [facility] Start: 12-08-2024 Continuous pulse oximetry [facility] Start: 12-08-2024 Dual pressure spontaneous ventilation support [facility] Start: 12-08-2024 [facility] Start: 12-08-2024 [facility] Start: 12-08-2024 Patient discharge [facility] Start: 12-08-2024 Patient referral to dietitian [facility] Start: 09-16-2023 Patient discharge [facility] Start: 09-16-2023 End: 09-16-2023 Care planning and problem solving actions [facility] Start: 09-15-2023 Following clinical pathway protocol [facility] Start: 09-15-2023 Ambulation without limitation [facility] Start: 09-15-2023 Assessment of risk of venous thromboembolism [facility] Start: 09-15-2023 Cardiac monitoring [facility] Start: 09-15-2023 Continuous positive airway pressure ventilation treatment [facility] Start: 09-15-2023 Incentive spirometry [facility] Start: 09-15-2023 Inhalation therapy procedure [facility] Start: 09-15-2023 Insertion of catheter into peripheral vein [facility] Start: 09-15-2023 Oxygen therapy [facility] Start: 09-15-2023 Providing care according to standard [facility] Start: 09-15-2023 Referral to convention services manager [facility] Start: 09-15-2023 Referral to occupational therapist [facility] Start: 09-15-2023 Referral to service [facility] Start: 09-15-2023 Tobacco use cessation education [facility] Start: 09-15-2023 [facility] Start: 09-15-2023 Hospital admission, emergency, from emergency room, medical nature [facility] Start: 09-15-2023 Protein/Creatinine [Ratio] in Urine [facility] Start: 09-15-2023 Sodium [Moles/volume] in Urine [facility] Start: 09-15-2023 Urinalysis complete panel - Urine [facility] Start: 09-15-2023 Admission procedure [facility] Start: 09-15-2023 Verification routine [facility] Start: 09-15-2023 Bacteria identified in Blood by Culture Blood Culture [facility] Start: 09-15-2023 End: 09-15-2023 Blood culture [facility] Start: 09-15-2023 [facility] Start: 09-15-2023 Patient referral to dietitian [facility] Anion gap in Serum or Plasma [facility] Anion gap in Serum or Plasma [facility] Bacteria identified in Sputum by Respiratory culture [facility] Bilirubin measurement, urine [facility] BUN/Creatinine ratio [facility] BUN/Creatinine ratio [facility] Calcium [Mass/volume ] in Serum or Plasma [facility] Calcium [Mass/volume ] in Serum or Plasma [facility] Carbon dioxide, tota l [Moles/volume] in Central venous blood [facility] Carbon dioxide, tota l [Moles/volume] in Central venous blood [facility] Creatinine [Mass/vol ume] in Serum or Plasma [facility] Creatinine [Mass/vol ume] in Serum or Plasma [facility] Erythrocyte mean cor puscular volume determination [facility] Erythrocyte mean cor puscular volume determination [facility] Glucose [Mass/volume ] in Serum or Plasma [facility] Glucose [Mass/volume ] in Serum or Plasma [facility] Hematocrit [Volume F raction] of Blood [facility] Hematocrit [Volume F raction] of Blood [facility] Hemoglobin [Mass/vol ume] in Blood [facility] Hemoglobin [Mass/vol ume] in Blood [facility] Hemoglobin [Presence] in Urine [facility] Lactic acid measurement [facility] Leukocytes [#/volume] in Blood [facility] Leukocytes [#/volume] in Blood [facility] Magnesium measurement [facility] Mean corpuscular hem oglobin concentration determination [facility] Mean corpuscular hem oglobin concentration determination [facility] Mean corpuscular hem oglobin determination [facility] Mean corpuscular hem oglobin determination [facility] Measurement of keton es in urine using dipstick [facility] Measurement of renal function [facility] Measurement of renal function [facility] Microscopic observat ion [Identifier] in Unspecified specimen by Gram stain [facility] Microscopic urinalysis [facility] Neutrophil count [facility] Neutrophil percent d ifferential count [facility] Patient referral [facility] Work Phone: pH of Urine [facility] Platelets [#/volume] in Blood [facility] Platelets [#/volume] in Blood [facility] Potassium measurement [facility] Potassium measurement [facility] Red blood cell count [facility] Red blood cell count [facility] Red cell distributio n width determination [facility] Red cell distributio n width determination [facility] Serum chloride measurement [facility] Serum chloride measurement [facility] Sodium measurement [facility] Sodium measurement [facility] Specific gravity of Urine [facility] Troponin T.cardiac [Mass/volume] in Serum or Plasma by High sensitivity method [facility] Urea nitrogen [Mass/ volume] in Serum or Plasma [facility] Urea nitrogen [Mass/ volume] in Serum or Plasma [facility] Urinalysis, blood, qualitative [facility] Urine culture [facility] Urine dipstick for glucose [facility] Urine dipstick for l eukocyte esterase [facility] Urine dipstick for nitrite [facility] Urine dipstick for protein [facility] Urine examination [facility] Urine microscopy: ep ithelial cells [facility] Urine Microscopy: white cells [facility] Urobilinogen [Presen ce] in Urine [facility] Immunizations Immunization Date Immunization Notes Care Provider Chelsea louie 04-28-2016 influenza, injectabl e, quadrivalent, preservative free No Primary Care Physician [facility] 05-21-2015 tetanus toxoid, redu maribell diphtheria toxoid, and acellular pertussis vaccine, adsorbed [facility] 04-24-2015 influenza, injectabl e, quadrivalent, preservative free No Primary Care Physician [facility] 03-15-2014 influenza, injectabl e, quadrivalent, preservative free No Primary Care Physician [facility] 05-15-2009 novel [id number], preservative-free, injectable No Primary Care Physician [facility] 06-16-2006 varicella virus vaccine No [facility] 02-12-1994 hepatitis B vaccine, adult dosage No Primary Care Physician [facility] 09-08-1993 hepatitis B vaccine, adult dosage No Primary Care Physician [facility] 08-11-1993 hepatitis B vaccine, adult dosage No Primary Care Physician [facility] Payers Date Payer Category Payer Medicare [id number] 2025 Private Health Insurance [id number] 2024 Medicare [id number] 2024 Medicare [id number] 2024 Self-pay [id number] 2015 Unknown [employer] [place] [id number] Medicare MEDICARE PART A B [id number] Unknown [id number] Unknown [id number] Unknown [id number] Unknown [id number] Unknown [id number] Unknown [id number] Unknown [id number] Unknown [id number] Unknown [id number] Social History Date Type Detail Facility Start: 09-15-2023 End: 09-16-2023 Tobacco smoking status DCIS Unknown if ever smoked [facility] Start: 08-16-2019 None [facility] Start: 07-16-2019 With Family [facility] Start: 05-20-2020 Cigarettes [facility] Start: 1960 Sex Assigned At Male [facility] Start: 12-08-2024 End: 01-17-2025 Tobacco smoking status NHIS Smokes tobacco daily (finding) [facility] Start: 07-07-2019 Tobacco smoking status Heavy t obacco smoker (finding) [facility] Sexual Orientation Anant Narinder molina [facility] Start: 04-13-2019 Sex Male (finding) [facility] Goals Date Patient Goal Desired Activity /State Functional Status Date Assessment Result Facility 12-10-2024 Functional status Ambulates [facility] Work Phone: 12-08-2024 Functional status Standby Assist [facility] Work Phone: 09-16-2023 Functional status Ambulates [facility] Work Phone: Mental Status Date Assessment Result Facility 12-10-2024 Cognitive function Voice/Name [facility] Work Phone: 12-08-2024 Cognitive function Voice/Name [facility] Work Phone: 09-16-2023 Cognitive function Voice/Name [facility] Work Phone: 09-15-2023 Cognitive function Awake;Alert;A ppropriate;Fol lows Commands [facility] Work Phone: Clinical Notes 05-05-2021 to 01-17-2025 Note Date & Type Note Facility 01-17-2025 Discharge summary [facility] 01-17-2025 History and physical note [facility] 01-17-2025 Discharge summary Note Date/Time January 17, 2025 2:16pm [facility] Medical Records Department [address] [place] [address] Emergency Department Summary 01/17/25 MR#: [id number] Acct: [id number] Name: MARCEL TURCIOS Rep #:[id number] : 1960 64 From: Jose bhakta DO PCP: Dr. Jose David Sims MD Status:ADM IN Location: [place] [address] HPI History of Present Illness Chief Complaint: Shortness of Breath Narrative Narrative: Chief complaint and HPI: Shortness of breath and tachycardia. 64-year-old male with past medical history of proximal atrial fibrillation noncompliant with anticoagulation, heavy tobacco abuse, COPD on chronic BiPAP and 2 L oxygen, HTN who is noncompliant with medication presents for evaluation of shortness of breath and tachycardia. History taken by patient as well as medical record. Patient states he has a home monitor at home and realized that his heart rate was high. States that he is chronically short of breath. States that he does not regularly take his Eliquis but did take a dose this morning. States that heis currently having a panic attack secondary to the above. Patient states he has a history of PTSD when it comes to hospitals, he states that he has issues trusting doctors which is why he does not take his daily medication. Patient states at baseline he is bed ridden on BiPAP. He states he has not had a sleep study in years, greater than 5 years and he states his settings are 17/5. Review of systems: See HPI Medications: As listed on the chart Allergies: As listed on the chart PFSH: Per chart - Vital signs: As listed on the chart. Reviewed. Physical exam: Gen: A&O x3, NAD Head: Normocephalic, atraumatic Eyes: No sclera icterus, conjunctiva clear ENT: Moist mucous membranes Neck: Trachea midline, No JVD CV: Irregular rhythm, tachycardic, no murmurs, no peripheral edema Resp: Lungs diminished in the bilateral bases, few expiratory wheezing, difficult to auscultate secondary to body habitus GI: Large body habitus, abd soft, non-distended, non-tender, no r/r/g Musc: Full ROM, no deformity Skin: Warm, dry Neuro: Alert, oriented, grossly intact, sensation intact Psych: Cooperative, appropriate mood and affect [facility] Medical History PTSD (post-traumatic stress disorder) Foraminal stenosis of lumbosacral region ZAN (obstructive sleep apnea) Back pain Anxiety COPD (chronic obstructive pulmonary disease) Radiculitis of leg Lumbar canal stenosis Foraminal stenosis of lumbosacral region Back pain Anxiety COPD (chronic obstructive pulmonary disease) Obstructive sleep apnea Home Medications ?Medication ?Instructions ?Recorded ?Last Taken ?Type albuterol sulfate 1.25 mg/3 mL 1.25 mg inhalation Q4H PRN PRN 12/08/24 Unknown History solution for nebulization dyspnea budesonide-formoterol HFA 160 2 inh inhalation Q12H Unknown History mcg-4.5 mcg/actuation aerosol inhaler (Breyna) magnesium oxide 400 mg (241.3 mg 400 mg PO BID 5 Unknown History magnesium) tablet fluconazole 150 mg tablet 150 mg PO QWEEK 01/17/25 Unk nown History ketoconazole 2 % topical cream 1 applic topical BID Unknown History Allergy/AdvReac Type Severity Reaction Status Date / Time codeine Allergy Hives Verified 12/08/24 21:09 Iodinated Contrast Media Allergy Hives Verified 12/08/24 21:09 (Iodinated Contrast Media - IV Dye) diclofenac AdvReac Swelling Verified 12/08/24 21:09 metaxalone AdvReac Swelling Verified 12/08/24 21:09 methylphenidate (From AdvReac hallucinati Verified 12/08/24 21:09 Ritalin) ons Phenylpiperazine AdvReac Other Verified 12/08/24 21:09 Antidepressant Tetracyclic Antidepressants AdvReac Other Verified 12/08/24 21:09 Tricyclic Antidepressants AdvReac Other Verified 12/08/24 21:09 and Tricy Family History Other Diabetes Hypertension Surgical History S/P epidural steroid injection Social History household members: family Smoking Status: Current every day smoker tobacco type: cigarettes and e-cigarettes alcohol intake: never substance use type: does not use EXAM Physical Exam Const Vital Signs: 01/17/25 09:31 01/17/25 09:39 01/17/25 09:54 Temperature 97.5 F L Temperature Source Temporal Pulse Rate 128 H Respiratory Rate 30 H Respiratory Effort Short of Breath Respiratory Depth Shallow Respiratory Pattern Tachypnea Blood Pressure 145/95 H Blood Pressure Mean 111 Blood Pressure Source Pulse Ox 96 Oxygen Delivery Method Nasal Cannula Nasal Cannula Room Air Oxygen Flow Rate (L/min) 2 2 01/17/25 10:30 01/17/25 11:15 01/17/25 11:45 Temperature Temperature Source Pulse Rate 155 H 159 H Respiratory Rate 26 H 26 H Respiratory Effort Respiratory Depth Respiratory Pattern Irregular Blood Pressure 146/111 H Blood Pressure Mean 122 Blood Pressure Source Pulse Ox 98 98 Oxygen Delivery Method Bi-pap Bi-pap Oxygen Flow Rate (L/min) 2 01/17/25 11:58 01/17/25 12:08 01/17/25 12:25 Temperature 97.8 F Temperature Source Oral Pulse Rate 152 H 152 H 155 H Respiratory Rate 22 H 28 H 22 H Respiratory Effort Respiratory Depth Respiratory Pattern Blood Pressure 129/84 H 129/98 H 120/88 H Blood Pressure Mean 99 108 98 Blood Pressure Source Monitor Pulse Ox 96 95 97 Oxygen Delivery Method Room Air Bi-pap Bi-pap Oxygen Flow Rate (L/min) 01/17/25 13:00 01/17/25 13:13 Temperature 97.8 F Temperature Source Oral Pulse Rate 120 H 126 H Respiratory Rate 19 H 23 H Respiratory Effort Respiratory Depth Respiratory Pattern Blood Pressure 147/77 H 147/77 H Blood Pressure Mean 100 100 Blood Pressure Source Monitor Pulse Ox 97 96 Oxygen Delivery Method Bi-pap Bi-pap Oxygen Flow Rate (L/min) MDM MDM MDM Narrative Medical decision making narrative: 64-year-old male with past medical history of proximal atrial fibrillation noncompliant with anticoagulation, heavy tobacco abuse, COPD on chronic BiPAP and 2 L oxygen, HTN who is noncompliant with medication presents for evaluation of shortness of breath and tachycardia. History taken by patient as well as medical record. Patient is noncompliant with medications as he states that he has issues trusting hospitals and physicians. States he feels like he is currently having a panic attack. States at baseline he is bed ridden which he placed himself on a year ago. He states he is on BiPAP settings 11/11 constantlywith 2 L of oxygen. States he has not had a sleep study in greater than 5 years. On presentation, patient is tachycardic, tachypneic on his 2 L nasal cannula. Not hypoxic. Patient states that he needs to be placed back on his home BiPAP as this will help with his breathing. He brought the BiPAP machine with him. He was placed back on his 17. Patient states that he does not takeany medication for his atrial fibrillation. States he is supposed to be taking daily Eliquis which he does not follow. States he did take a dose this morning due to his fast heart rate. Differential diagnosis includes but is not limited to atrial fibrillation with RVR, panic attack, COPD exacerbation, pneumonia, CHF, PE. Will plan on albuterol given his heart rate, will give Atrovent. Solu-Medrol, diltiazem bolus, Ativan ordered for symptoms. Respiratory workup ordered including CTA chest. On chart review, patient presented to emergency department in November for the same symptoms. He was ultimately admitted and discharged on 12/10. He was admitted for hypoxia due to community-acquired pneumonia and COPD exacerbation. Atrial fibrillation with RVR. Patient had a normal TSH at that time. VBG without hypercapnia or acidosis. Patient's pH is 7.469 and his pCO2 is 23.Repeat repeat EKG was personally reviewed interpreted by me, ED physician. EKG shows a wide QRS tachycardia still with right bundle branch block. Heart rate 156. Will give adenosine to assess underlying rhythm. 6 mg of adenosine was given without any effect. 12 mg adenosine was given and underlying rhythm was found to be atrial fibrillation with PVCs. Patient's heart rate did increase back to the 150s. Another IV diltiazem bolus ordered and patient placed on diltiazem drip. Patient has allergy to contrast thereforeBenadryl ordered. He states despite premedication he still develops a rash. Hewould like to forego the CT chest if possible. Therefore instead we will start with chest x-ray and D-dimer. CBC with mild leukocytosis of 12.8. Patient has hemoconcentration of 18. History of this on previous labs. Magnesium unremarkable. BMP shows baseline renal insufficiency. Troponin unremarkable. BNP unremarkable. D-dimer 0.61 however this is negative for age adjustment. Chest x-ray was personally viewed interpreted by me, ED physician. No pneumonia, effusion, pneumothorax, Cardiomegaly. Radiology in agreement, statesatelectasis scar at the right lung base. On reevaluation, patient is still in A-fib RVR on diltiazem drip however his rate has improved to the 120s. He will warrant admission. I spoke with the hospitalist service who accepted admission. They will determine anticoagulation if to continue Eliquis or start on heparin. EKG: Interpreted by me/EM physician: EKG shows normal QRS tachycardia with PVCs. Right bundle branch block. Underlying rhythm difficult to discern given rate of161. Repeat EKG shows atrial fibrillation with PVCs. Right bundle branch block. Heart rate 68. This was one with adenosine. 35 minutes of critical care time utilized in managing the patient. This is due to high probability of and deterioration of the patient based on the patient's condition and excludes any separately billable procedures. Impression: 1. Atrial fibrillation with RVR 2. History of proximal atrial fibrillation, noncompliant with cardiac medications and anticoagulation 3. COPD with mild exacerbation Lab Data Labs: Laboratory Results - last 24 hr 01/17/25 01/17/25 09:44 09:49 WBC 12.8 H RBC 6.11 Hgb 18.0 H* Hct 53.6 MCV 87.7 MCH 29.5 MCHC 33.6 RDW Std Deviation 47.1 H RDW Coeff of Penelope 14.9 H Plt Count 248 MPV 9.4 Immature Gran % (Auto) 0.500 Neut % (Auto) 64.5 Lymph % (Auto) 25.4 Mclennan % (Auto) 7.7 Eos % (Auto) 1.1 Baso % (Auto) 0.8 Absolute Neuts (auto) 8.3 H Absolute Lymphs (auto) 3.25 Nucleated RBC % 0 D-Dimer Quant (PE/DVT) 0.61 H* Sodium 138 Potassium 4.3 Chloride 101 Carbon Dioxide 16.2 L Anion Gap 21 H BUN 16 Creatinine 1.27 H Estim Creat Clear Calc 94.47 Est GFR (MDRD) Non-Af 63 BUN/Creatinine Ratio 12.7 Glucose 162 H Calcium 9.6 Magnesium 2.1 Troponin T High Sens 18 D NT pro BNP II 782 ABG Data ABG results: ABG 01/17/25 10:12 Specimen Type MATHEW Sample Site Not entered O2 % 2.0 VBG pH 7.47 H VBG pO2 48 H VBG HCO3 22 VBG Total CO2 23 VBG O2 Sat (Calc) 87 H VBG Base Excess -1 POC Mix VBG pCO2 Pt Tmp 30.6 L O2 Delivery Device Not entered Radiography Diagnostic Testing: Clinical Impression(s) from Imaging Studies Chest X-Ray 01/17/25 12:12 IMPRESSION: There is atelectasis scar at the right lung base, similar to the prior. Reading Location: [facility] Discharge Plan Triage Chief Complaint: Shortness of Breath ED Provider: Jose Vallejo Dx/Rx/DC Orders Prescriptions: No Action albuterol sulfate 1.25 mg/3 mL solution for nebulization 1.25 mg inhalation Q4H PRN PRN (Reason: dyspnea) magnesium oxide 400 mg (241.3 mg magnesium) tablet 400 mg PO BID budesonide-formoterol [Breyna] 160-4.5 mcg/actuation HFA aerosol inhaler 2 inh inhalation Q12H fluconazole 150 mg tablet 150 mg PO QWEEK ketoconazole 2 % cream 1 applic topical BID Primary Care Provider: Jose David Sims Referrals: Jose David Sims MD [Primary Care Provider] - Print Language: Turkmen What to do if you have Problems For any increased pain, shortness of breath, bleeding, nausea or vomiting, chestpain, or any unexpected problems, contact your Primary Care Provider. Call [facility] ([phone]) or report to the closest Emergency Room. Call 911 if necessary. 01/17/25 1416 <Electronically signed by Jose Vallejo DO> Cosigner Signature (if applicable): CC: Dr. Jose David Sims MD ~ Signed [facility] Work Phone: [phone] 653-791107-23-2025 Radiology Diagnostic study note [facility] Imaging Services [address] [place] [id number] Chest 1 View MR#: [id number] Acct: [id number] Name: MARCEL TURCIOS Rep #: [id number] : [id number] M 64 From: Kishore Kurtz MD PCP: Dr. Jose David Sims MD Status: [facility] ER Study:Chest 1 View Date of Exam: 5 Exam# [id number] Ordering Dr: Jose Anne DO PROCEDURE: CHEST 1 VIEW 01/17/2025 REASON FOR EXAM: SHORTNESS OF BREATH TECHNIQUE: Frontal view of the chest. COMPARISON: December 08, 2024 FINDINGS: Heart size is upper normal. Central vascularity appears within normal limits. There is atelectasis scar at the right lung base, similar to the prior. There is no pneumothorax. There is no definite effusion. There is no acute bony abnormality. There is no visible atherosclerosis. RAD/Chest 1 View IMPRESSION: There is atelectasis scar at the right lung base, similar to the prior. Reading Location: [facility] CC: Dr. Jose Vallejo, DO; Dr. Jose David Sims MD ~ Mill Set Up: Signed [facility]07-22-2025 Hospital Discharge instructions Patient Education 01/16/2025 19:03:15 Atrial Flutter Atrial Flutter Atrial flutter means that your heart is beating very fast. It is caused by a problem in the electrical pathways of the heart. It can be a sign of heart disease or other health problems that affect your heart. Palpitations are the most common symptom of atrial flutter. This is the feeling that your heart is fluttering or beating fast or hard. When your heart beats too fast, it doesn t pump blood very well.This can cause other symptoms, including: Anxiety Fatigue Shortness of breath Chest pain Dizziness Fainting If this is the first time you ve had atrial flutter, and you don t have heart or lung disease, it may never happen again. But in most cases, atrial flutter comes and goes. It can last from a few hours to a couple of days. Sometimes the atrial flutter doesn t ever go away. This is chronic atrial flutter. Atrial flutter may be caused by heart disease. It may also be caused by other conditions that affect the heart: Coronary artery disease (arteriosclerosis) High blood pressure Disease of the heart valves Enlarged heart Atrial flutter can occur without heart disease. This may be because of: Overactive thyroid (hyperthyroid) Chronic lung disease (COPD, emphysema, or bronchitis) Alcohol use Drugs or medicines that stimulate the heart. These include cocaine, amphetamines, diet pills, some decongestant cold medicines, caffeine, and nicotine. Infection Treating or removing these causes will make it more likely that treatment for atrial flutter will work. It will also make it less likely that atrial flutter will come back. Atrial flutter can happen along with another abnormal rhythm called atrial fibrillation. The risk for stroke is higher with these conditions. Getting treatment can reduce your risk. Home care Follow these guidelines when caring for yourself at home: Go back to your usual activities as soon as you feel back to normal. If you smoke, stop smoking. Talk with your healthcare provider or call a local stop-smoking programfor help. Don t take drugs or medicines that stimulate your heart. These include cocaine, amphetamines, diet pills, some decongestant cold medicines, caffeine, and nicotine. Your provider may have prescribed medicine to stop atrial fibrillation from coming back. Take this medicine exactly as directed. Some medicines must be taken every day to work as they should. Your provider may also have prescribed warfarin to lower your risk for stroke. Have your blood tested regularly as advised by your healthcare provider. This will help make sure the dose is right for you. Follow-up care Follow up with your healthcare provider, or as advised. When should I call my healthcare provider? Call your healthcare provider right away if any of these occur: Shortness of breath gets worse Swelling in either leg Unexpected weight gain Chest pain or pressure Near fainting or fainting You feel like your heart is fluttering, or beating fast or hard Fever of 100.4 F (38 C) or higher, or as directed by your healthcare provider Cough with dark-colored or bloody mucus Also call your provider right away if you have signs of stroke: Weakness or numbness of an arm or leg or one side of the face Difficulty speaking or seeing Extreme drowsiness, confusion, dizziness, or fainting [id number] [employer]. [address] [place] [address]. All rights reserved. This information is not intended as a substitute for professional medical care. Always follow yourhealthcare professional's instructions. Follow Up Care 01/16/2025 09:52:31 With:MAG BOND MD Address: [facility] [address] [facility] [place] [address]- [phone] When:2-4 days [facility] 07-22-2025 Note Discharge Instructions Thank you for allowing [facility] to assist you with your healthcare needs. The following is importantdischarge information regarding your hospital visit. Diagnosis from Today's Visit Atrial flutter Left against medical advice What to Do Next Instructions from Your Care Team No qualifying data available. Post Acute Orders No qualifying data available. You Need to Schedule the Following Appointments Follow Up with MAG BOND MD When:Within 2-4 days Where:[address] [facility] [place] [address] [phone] Allergies Contrast dye Ritalin codeine tricyclic antidepressants Medications Please ask your primary doctor or pharmacist before taking any other medication not listed, including over the counter drugs, herbal medications, vitamins and or supplements as they may interact withyour home medications. What How Much When Instructions Last Dose New apixaban (Eliquis 5 mg oral tablet) 1 tab(s) by mouth Two (2) times a day Printed Prescription New dilTIAZem (Cardizem 30 mg oral tablet) 1 tab(s) by mouth Three (3) times a day Printed Prescription Unchanged albuterol (albuterol 1.25 mg/ 3 mL (0.042%) inhalation solution) 3 Milliliter by inhalation Four (4) times a day as needed for as needed Unchanged fluconazole (fluconazole 150 mg oral tablet) 1 tab(s) by mouth Every week Unchanged ketoconazole topical (ketoconazole 2% topical cream) 1 application Topical Two (2) times a day Unchanged magnesium oxide (magnesium oxide 400 mg oral tablet) 1 tab(s) by mouth Two (2) times a day Please take this list to your next doctor s visit. Bring all medications you take, including over the counter medications, herbals and other supplements with you to your doctor s visit. Patients and families are reminded to discard old lists and to update any records with all medication providers or retail pharmacies. Medication Leaflets apixaban (a PIX a ban) Elimicheletis What is the most important information I should know about apixaban? Apixaban increases your risk of severe or fatal bleeding, especially if you take certain medicines at the same time (including some mwfy-bjz-hfugzgu medicines). Tell your doctor about all medicines you have recently used. Call your doctor at once if you have signs of bleeding such as: easy bruising, unusual bleeding, unexpected pain or swelling, feeling very weak or dizzy, bleeding gums, nosebleeds, heavy menstrual bleeding, blood in your urine or stools, coughing up blood or vomit that looks like coffee grounds, orany bleeding that will not stop. Apixaban can cause a very serious blood clot around your spinal cord that can lead to long-term or permanent paralysis. This type of blood clot can occur during a spinal tap or spinal anesthesia (epidural), especially if you have a genetic spinal defect, if you use a spinal catheter, if you've had spinal surgery or repeated spinal taps, or if you use other drugs that can affect blood clotting. Get emergency medical help if you have symptoms of a spinal cord blood clot such as tingling, numbness, or muscle weakness especially in your legs and feet. Do not stop taking apixaban unless your doctor tells you to. Stopping suddenly can increase your risk of blood clot or stroke. What is apixaban? Apixaban is used to lower the risk of stroke caused by a blood clot in people with a heart rhythm disorder called atrial fibrillation. Apixaban is also used after hip or knee replacement surgery to prevent a type of blood clot called deep vein thrombosis (DVT), which can lead to blood clots in the lungs (pulmonary embolism). Apixaban is also used to treat DVT or pulmonary embolism (PE), and to lower your risk of having a repeat DVT or PE. Apixaban may also be used for purposes not listed in this medication guide. What should I discuss with my healthcare provider before taking apixaban? You should not take apixaban if you are allergic to it, or if you have active bleeding from a surgery, injury, or other cause. Apixaban may cause you to bleed more easily, especially if you have a bleeding disorder that is inherited or caused by disease. Tell your doctor if you have an artificial heart valve, or if you have ever had: bleeding problems; antiphospholipid syndrome, especially if you have a triple positive antibody test; or liver or kidney disease. Apixaban can cause a very serious blood clot around your spinal cord if you undergo a spinal tap orreceive spinal anesthesia (epidural). This type of blood clot could cause long-term paralysis, and may be more likely to occur if: you have a spinal catheter in place or if a catheter has been recently removed; you have a history of spinal surgery or repeated spinal taps; you have recently had a spinal tap or epidural anesthesia; you take aspirin or other NSAIDs (nonsteroidal anti-inflammatory drugs)--ibuprofen (Advil, Motrin),naproxen (Aleve), diclofenac, indomethacin, meloxicam, and others; or you are using other medicines to treat or prevent blood clots. Taking apixaban may increase the risk of bleeding while you are or during your delivery. Tell your doctor if you are or plan to become . Do not breastfeed. How should I take apixaban? Follow all directions on your prescription label and read all medication guides or instruction sheets. Your doctor may occasionally change your dose. Use the medicine exactly as directed. You may take apixaban with or without food. If you cannot swallow a tablet whole, crush it and mix with water, apple juice, or applesauce. Swallow the mixture right away without chewing. A crushed tablet mixture may also be given through a nasogastric (NG) feeding tube. Read and carefully follow any Instructions for Use provided with your medicine. Apixaban can make it easier for you to bleed, even from a minor injury. Seek medical attention if you have bleeding that will not stop. Tell your doctor if you have a planned surgery or dental work. You may need to stop taking apixabanfor a short time. Do not stop taking apixaban unless your doctor tells you to. If you stop taking apixaban for any reason, your doctor may prescribe another medicine to prevent blood clots. Store at room temperature away from moisture and heat. What happens if I miss a dose? Take the missed dose on the same day you remember it. Take your next dose at the regular time and stay on your twice-daily schedule. Do not take two doses at one time. Get your prescription refilled before you run out of medicine completely. What happens if I overdose? Seek emergency medical attention or call the Poison Help line at . What should I avoid while taking apixaban? Avoid activities that may increase your risk of bleeding or injury. Use extra care while shaving orbrushing your teeth. What are the possible side effects of apixaban? Get emergency medical help if you have signs of an allergic reaction: hives; chest pain, wheezing, difficult breathing; feeling light-headed; swelling of your face, lips, tongue, or throat. Also seek emergency medical attention if you have symptoms of a spinal blood clot such as tingling,numbness, or muscle weakness especially in your legs and feet. Call your doctor at once if you have: easy bruising, unusual bleeding (nose, mouth, vagina, or rectum), bleeding from wounds or needle injections, any bleeding that will not stop; heavy menstrual bleeding; headache, dizziness, weakness, feeling like you might pass out; urine that looks red, pink, or brown; or black or bloody stools, coughing up blood or vomit that looks like coffee grounds. This is not a complete list of side effects and others may occur. Call your doctor for medical advice about side effects. You may report side effects to FDA at 7-915-MNS-5850. What other drugs will affect apixaban? Sometimes it is not safe to use certain medications at the same time. Some drugs can affect your blood levels of other drugs you take, which may increase side effects or make the medications less effective. Many other drugs (including some zepb-kmk-elpyulq medicines) can increase your risk of bleeding or blood clots. Tell your doctor about all medicines you have recently used, especially: any other medicines to treat or prevent blood clots; a blood thinner such as heparin or warfarin (Coumadin, Jantoven); an antidepressant; or aspirin or other NSAID (nonsteroidal anti-inflammatory drug) used superintendent container terminal. This list is not complete and many other drugs may affect apixaban. This includes prescription and uvme-rcy-smtmggp medicines, vitamins, and herbal products. Not all possible drug interactions are listed here. Where can I get more information? Your pharmacist can provide more information about apixaban. Remember, keep this and all other medicines out of the reach of children, never share your medicines with others, and use this medication only for the indication prescribed. Every effort has been made to ensure that the information provided by [employer]. [employer]') is accurate, up-to-date, and complete, but no guarantee is made to that effect. Drug information contained herein may be time sensitive. [employer] information has been compiled for use by healthcare practitioners and consumers in the [place] and therefore [employer] does not warrant that uses outside of the [place] are appropriate, unless specifically indicated otherwise. [employer]'s drug information does not endorse drugs, diagnose patients or recommend therapy. [employer] drug information isan informational resource designed to assist licensed healthcare practitioners in caring for their p atients and/or to serve consumers viewing this service as a supplement to, and not a substitute for, the expertise, skill, knowledge and judgment of healthcare practitioners. The absence of a warningfor a given drug or drug combination in no way should be construed to indicate that the drug or drug combination is safe, effective or appropriate for any given patient. [facility] does not assume any responsibility for any aspect of healthcare administered with the aid of information [facility] provides. The information contained herein is not intended to cover all possible uses, directions, precautions, warnings, drug interactions, allergic reactions, or adverse effects. If you have questions about the drugs you are taking, check with your doctor, nurse or pharmacist. Copyright 2116-9619 [facility]. Version: 6.01. Revision Date: 02/18/2021. diltiazem (oral/injection) (dil JOSE FRANCISCO a zem) Cardizem, Cardizem CD, Cardizem LA, Cartia XT, DilTIAZem (Eqv-Cardizem CD), DilTIAZem (Eqv-Dilacor XR), DilTIAZem (Eqv-Tiazac), DilTIAZem Hydrochloride ER, DilTIAZem Hydrochloride SR, Dilt-XR, MatzimLA, Tiadylt ER, Tiazac What is the most important information I should know about diltiazem? You should not use diltiazem if you have very low blood pressure, a serious heart condition such as'sick sinus syndrome' or 'AV block' (unless you have a pacemaker), or if you have recently had a heart attack and you have a build-up of fluid in your lungs. What is diltiazem? Diltiazem oral is used in adults alone or in combination with other medicines to treat hypertension(high blood pressure) or symptoms of angina (chest pain). Diltiazem injection is used in adults to treat certain heart rhythm disorders such as atrial fibrillation or atrial flutter, or dangerously rapid heartbeats (tachycardia). Lowering blood pressure may lower your risk of a stroke or heart attack. Diltiazem may also be used for purposes not listed in this medication guide. What should I discuss with my healthcare provider before using diltiazem? You should not use diltiazem if you are allergic to it, or if you have: a serious heart condition such as 'sick sinus syndrome' or 'AV block' (unless you have a pacemaker); very low blood pressure; if your heart cannot pump blood properly; or if you have recently had a heart attack and you have a build-up of fluid in your lungs. You may not be able to use diltiazem if you have: heart failure; certain heart rhythm disorders (such as 'Afib' or atrial flutter with Jxqwq-Brsfppjxh-Cryrp syndrome); a heart condition that causes you to have very fast heartbeats; or if you are receiving an intravenous beta-ortega (such as atenolol, metoprolol, or propranolol). Tell your doctor if you have ever had: congestive heart failure or heart problems; low blood pressure or slow heart rate; or liver disease. It is not known whether diltiazem will harm an unborn baby. Tell your doctor if you are orplan to become . Tell your doctor if you are . How should I use diltiazem? Follow all directions on your prescription label and read all medication guides or instruction sheets. Your doctor may occasionally change your dose. Use the medicine exactly as directed. Diltiazem injection is given into a vein by a healthcare provider. Your heart rate will be constantly monitored using an electrocardiogram or ECG (sometimes called an EKG). Your blood pressure and other vital signs will also be watched closely. Diltiazem oral is taken by mouth. Your pharmacist can provide more information about how to take this medicine. Your dose needs may change if you switch to a different brand, strength, or form of this medicine. Some forms of diltiazem oral cannot be crushed or chewed, and some forms can be opened and mixed with applesauce. Ask your pharmacist how to take this medicine. Your blood pressure and liver function will need to be checked often. If you have high blood pressure, keep using this medicine even if you feel well. High blood pressure often has no symptoms. Store at room temperature away from moisture, heat, and light. What happens if I miss a dose? Diltiazem injection is used when needed and does not have a daily dose. Call your doctor if the medicine is not effective. Take diltiazem oral as soon as you can, but skip the missed dose if it is almost time for your nextdose. Do not take two doses at one time. What happens if I overdose? Seek emergency medical attention or call the Poison Help line at . Overdose symptoms may include low blood pressure, slow heart rate, severe dizziness, or fainting. What should I avoid while using diltiazem? Avoid drinking alcohol while taking diltiazem extended-release capsules. Drinking alcohol with thismedicine can cause side effects. Avoid taking an herbal supplement containing Ramona's wort. Avoid getting up too fast from a sitting or lying position, or you may feel dizzy. Avoid driving orhazardous activity until you know how this medicine will affect you. Your reactions could be impaired. What are the possible side effects of diltiazem? Get emergency medical help if you have signs of an allergic reaction (hives, difficult breathing, swelling in your face or throat) or a severe skin reaction (fever, sore throat, burning eyes, skin pain, red or purple skin rash with blistering and peeling). Call your doctor at once if you have: chest pain, fast, slow, or uneven heart rate; a light-headed feeling, like you might pass out; heart problems--swelling, rapid weight gain, feeling short of breath; or liver problems--loss of appetite, stomach pain (upper right side), tiredness, itching, dark urine, scar-colored stools, jaundice (yellowing of the skin or eyes). Common side effects may include: swelling; infections, flu symptoms; trouble breathing; headache, dizziness, weakness; slower heart rate; pain, bruising, swelling, or irritation where the medicine was injected; nausea, upset stomach; or rash. This is not a complete list of side effects and others may occur. Call your doctor for medical advice about side effects. You may report side effects to FDA at 5-425-OBE-4328. What other drugs will affect diltiazem? Sometimes it is not safe to use certain medicines at the same time. Some drugs can affect your blood levels of other drugs you use, which may increase side effects or make the medicines less effective. Many drugs can affect diltiazem. This includes prescription and lhxl-zio-cqrravf medicines, vitamins, and herbal products. Not all possible interactions are listed here. Tell your doctor about all other medicines you use. Where can I get more information? Your doctor or pharmacist can provide more information about diltiazem. Remember, keep this and all other medicines out of the reach of children, never share your medicines with others, and use this medication only for the indication prescribed. Every effort has been made to ensure that the information provided by [employer]. ('[employer]') is accurate, up-to-date, and complete, but no guarantee is made to that effect. Drug information contained herein may be time sensitive. [employer] information has been compiled for use by healthcare practitioners and consumers in the [place] and therefore [employer] does not warrant that uses outside of the [place] are appropriate, unless specifically indicated otherwise. [employer] drug information does not endorse drugs, diagnose patients or recommend therapy. [employer] drug information isan informational resource designed to assist licensed healthcare practitioners in caring for their p atients and/or to serve consumers viewing this service as a supplement to, and not a substitute for, the expertise, skill, knowledge and judgment of healthcare practitioners. The absence of a warningfor a given drug or drug combination in no way should be construed to indicate that the drug or drug combination is safe, effective or appropriate for any given patient. [employer] does not assume any responsibility for any aspect of healthcare administered with the aid of information [employer] provides. The information contained herein is not intended to cover all possible uses, directions, precautions, warnings, drug interactions, allergic reactions, or adverse effects. If you have questions about the drugs you are taking, check with your doctor, nurse or pharmacist. Copyright 9969-7520 [employer]. Version: 19.02. Revision Date: 02/03/2024. Education Materials Atrial Flutter Atrial flutter means that your heart is beating very fast. It is caused by a problem in the electrical pathways of the heart. It can be a sign of heart disease or other health problems that affect your heart. Palpitations are the most common symptom of atrial flutter. This is the feeling that your heart is fluttering or beating fast or hard. When your heart beats too fast, it doesn t pump blood very well.This can cause other symptoms, including: Anxiety Fatigue Shortness of breath Chest pain Dizziness Fainting If this is the first time you ve had atrial flutter, and you don t have heart or lung disease, it may never happen again. But in most cases, atrial flutter comes and goes. It can last from a few hours to a couple of days. Sometimes the atrial flutter doesn t ever go away. This is chronic atrial flutter. Atrial flutter may be caused by heart disease. It may also be caused by other conditions that affect the heart: Coronary artery disease (arteriosclerosis) High blood pressure Disease of the heart valves Enlarged heart Atrial flutter can occur without heart disease. This may be because of: Overactive thyroid (hyperthyroid) Chronic lung disease (COPD, emphysema, or bronchitis) Alcohol use Drugs or medicines that stimulate the heart. These include cocaine, amphetamines, diet pills, some decongestant cold medicines, caffeine, and nicotine. Infection Treating or removing these causes will make it more likely that treatment for atrial flutter will work. It will also make it less likely that atrial flutter will come back. Atrial flutter can happen along with another abnormal rhythm called atrial fibrillation. The risk for stroke is higher with these conditions. Getting treatment can reduce your risk. Home care Follow these guidelines when caring for yourself at home: Go back to your usual activities as soon as you feel back to normal. If you smoke, stop smoking. Talk with your healthcare provider or call a local stop-smoking programfor help. Don t take drugs or medicines that stimulate your heart. These include cocaine, amphetamines, diet pills, some decongestant cold medicines, caffeine, and nicotine. Your provider may have prescribed medicine to stop atrial fibrillation from coming back. Take this medicine exactly as directed. Some medicines must be taken every day to work as they should. Your provider may also have prescribed warfarin to lower your risk for stroke. Have your blood tested regularly as advised by your healthcare provider. This will help make sure the dose is right for you. Follow-up care Follow up with your healthcare provider, or as advised. When should I call my healthcare provider? Call your healthcare provider right away if any of these occur: Shortness of breath gets worse Swelling in either leg Unexpected weight gain Chest pain or pressure Near fainting or fainting You feel like your heart is fluttering, or beating fast or hard Fever of 100.4 F (38 C) or higher, or as directed by your healthcare provider Cough with dark-colored or bloody mucus Also call your provider right away if you have signs of stroke: Weakness or numbness of an arm or leg or one side of the face Difficulty speaking or seeing Extreme drowsiness, confusion, dizziness, or fainting [id number] [employer]. [address] [place] [address], [place] [address]. All rights reserved. This information is not intended as a substitute for professional medical care. Always follow yourhealthcare professional's instructions. Additional Information VACCINATE! IT SAVES LIVES! Members of the community who have not yet received the COVID-19 vaccine and would like to receive it can visit one of [facility] vaccine clinics. There are many vaccine clinic locations within the [facility]. For locations and available times, please visit www.gettheshot.coronavirus.[place].gov/. It is important to note that some COVID mobile vaccine clinics are held outdoors and may be canceled in rainy or stormy conditions. To learn more about pediatric vaccinations (ages 5-11), we invite you to visit the [facility] webpage. https://www.[facility].org/pages/4149-Juklk-Ukivcmoenum-Nxvayqqhxu-Xxjwz-Msq stions.htmlTo learn more about the COVID-19 vaccine, we invite you to visit the CDC website for a list of frequently asked questions. https://www.cdc.gov/coronavirus/2019-ncov/vaccines/faq.html [facility] [facility] Patient Portal Access Instructions: Stay connected with your healthcare team and access your personal medical information anytime with the [employer] Patient Portal. If you would like a full copy of your medical records please contact the [facility] Medical Records Department Wednesday through Wednesday between 8a.m. and 4:30p.m. Please follow the directions below to access the portal: 1.Access the email account you provided upon registration to the hospital.2.Look for an invitation email from [facility].3.Open the email and access the invitation link: Accept Invitation to [facility] [employer] [facility]4.Fill in the required saucedo to create your account. Sign into [email or web address] with your username and password that you created in the above steps to stay up to date. You can then view a summary of results, a summary of your visits, and the ability to download your summaries to your computer or send the information securely to a physician. Remember that your healthcare information is confidential, so carefully consider who you will allow to register on the [facility] Patient Portal for access to your information. You can also access the [facility] Patient Portal on the [employer]. Simply click on Health Records under [employer] and then click on the [employer] logo. HOW TO SAFELY DISPOSE OF PRESCRIPTION MEDICATIONS Please use one of the following methods to safely dispose of your unused medications. 1.Use a drug disposal kit: the drug disposal pouch allows you to safely discard your old and unuseddrugs. Ask your nurse to give you one when you are discharged.2.Visit a local take-back location: Many local pharmacies and police departments have programs that collect old and unwanted prescriptiondrugs. Call your local pharmacy or go to http://Revaluate.Casabi/2Y8Ih5y to find one close to you.3.Make use of household items: Use cat litter or old coffee grounds to dispose medications if other options arenot available. Mix your drugs with these household products, seal them in an airtight container andthrow it into the garbage. Call [facility]: [phone] to be sure your drugs can be disposed of in this way. Some medicines may require a different approach.4.Never flush your medications down the toilet. IF YOU HAVE BEEN PRESCRIBED AN OPIOIDS FOR PAIN If you have been prescribed an opioid (such as hydrocodone, oxycodone or morphine), it is critical to understand the possible side effects and risks of opioid pain medications. Even when taken as directed, opioids can have several side effects including: Tolerance, meaning you might need to take more of a medication for the same pain relief. Nausea, vomiting and/or constipation. Sleepiness, dizziness, dry mouth, confusion, depression or itching. Physical dependence, meaning you have withdrawal symptoms when a medication is stopped ? this can develop within a few days. KNOW YOUR RESPONSIBILITIES It is important to know exactly how much and how often to take the opioid pain medications you are prescribed. Never take opioids in higher amounts or more often than prescribed. Do not combine opioids with alcohol or other drugs that cause drowsiness, such as benzodiazepines, also known as benzos,including diazepam and alprazolam, muscle relaxants or sleep aids. Never sell or share prescriptionopioids. This is illegal. Store opioids in a secure place and out of reach of others (including children, family, friends and visitors). The last page(s) of this document has been signed and retained as a CHART COPY Signatures Patient Education Materials Atrial Flutter Medication Leaflets apixaban, diltiazem (oral/injection) My discharge plan and instructions have been reviewed and explained to me and I,MARCEL TURCIOS understand my current condition and have read and understand these discharge instructions. I have received a written copy of the plan/instructions. If I have questions, I am aware that I should contact my doctor. 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 Signature: Date/Time: Relationship to Patient: Witness Name/Signature: Date/Time: [facility]07-22-2025 Note* Exam Date Time Procedure Performing Provider Status 01/16/25 2:23 PM EKG [ED AOH] - CV ANUP CURRY DO ; Auth (Verified) ECG Final Report Atrial flutter with predominant 4:1 AV block Ventricular bigeminy Right bundle branch block Inferior infarct, old Lateral leads are also involved Baseline wander in lead(s) V2,V3 Compared to ECG at 01/16/2025 10:25:29 ABNORMAL ECG Electronic Signature: ANUP CURRY DO 01/16/2025 14:26:18 [facility]07-22-2025 Evaluation + Plan note Diagnostic Tests Pending * APTT 01/16/25 * Blood Culture (bacterial) 01/16/25 * Lactic Acid 01/16/25 * Blood Culture (bacterial) 01/16/25 [facility] 07-22-2025 Note* Exam Date Time Procedure Performing Provider Status 01/16/25 12:[address] Abdomen/Pelvis w/o Contrast UYEN FLORES MD; Auth (Verified) [id number] ORIGINAL EXAMINATION: CT OF THE ABDOMEN AND PELVIS WITHOUT CONTRAST 01/16/2025 12:18 pm TECHNIQUE: CT of the abdomen and pelvis was performed without the administration of intravenous contrast. Multiplanar reformatted images are provided for review. Automated exposure control, iterative reconstruction, and/or weight based adjustment of the mA/kV was utilized to reduce the radiation dose to as low as reasonably achievable. COMPARISON: None. HISTORY: ORDERING SYSTEM PROVIDED HISTORY: Reason for Exam: Abdominal pain, acute, nonlocalized FINDINGS: Atha-lc-qvghpxfm degenerative changes are noted in the spine. Mild hip osteoarthritis is also seen. 4 mm nodule right lower lobe. Lung bases are otherwise unremarkable. Liver, spleen, adrenal glands and pancreas are unremarkable. Prominent streak artifact from patient body habitus makes interpretation difficult. I suspected 2 mm left upper pole renal stone. No other renal finding, no indicators of hydronephrosis. No adenopathy, free air or free fluid is visible. The urinary bladder is grossly normal. Small bilateral fat containing inguinal hernias are noted. Minor sigmoid diverticulosis is evident, without diverticulitis. No other GI tract abnormality seen. There is some asymmetry of the rectus muscles, left more prominent than right. This is suspected to be chronic related to right-sided atrophy. No additional contributory finding seen. IMPRESSION: 1. No acute abnormality identified on this exam. 2. Punctate left nephrolithiasis. 3. Diverticulosis without diverticulitis. RECOMMENDATIONS: Right solid pulmonary nodule measuring 4 mm. Per Fleischner Society Guidelines, no routine follow-up imaging is recommended. These guidelines do not apply to immunocompromised patients and patients with cancer. Follow up in patients with significant comorbidities as clinically warranted. For lung cancer screening, adhere to Lung-RADS guidelines. Reference: Radiology. 2017; 284(1):228-43. Interpreted by: Uyen Flores MD Preliminary Report By: Uyen Flores MD Electronically signed By Uyen Flores MD Dictated Date: 01/16/2025 12:23:51 PM Prelim Date: 01/16/2025 12:27:50 PM Sign Date: 01/16/2025 12:27:50 PM [facility]* Exam Date Time Procedure Performing Provider Status 01/16/25 12:17 PM XR Chest 1 View BROOK AGUILAR MD; Au th (Verified) [id number] ORIGINAL EXAMINATION: ONE XRAY VIEW OF THE CHEST 01/16/2025 12:17 pm COMPARISON: 12/23/2017 HISTORY: ORDERING SYSTEM PROVIDED HISTORY: Reason for Exam: dyspnea FINDINGS: Mild rotation to the left. Cardiomegaly. No overt edema. No focal consolidation. The right costophrenic angle is sharp. Increased density in the region of the left costophrenic angle is favored to be related to superimposition of pericardial fat. No pneumothorax. No acute osseous abnormality. IMPRESSION: Cardiomegaly. Interpreted by: Brook Aguilar Preliminary Report By: Brook Aguilar Electronically signed By Brook Aguilar Dictated Date: 01/16/2025 12:23:21 PM Prelim Date: 01/16/2025 12:24:36 PM Sign Date: 01/16/2025 12:24:36 PM Ordering Provider: ANUP CURRY [facility]07-22-2025 Note* Exam Date Time Procedure Performing Provider Status 01/16/25 10:25 AM EKG [ED AOH] - CV ANUP CURRY O; Auth (Verified) ECG Final Report Wide-QRS tachycardia Right bundle branch block Baseline wander in lead(s) III,aVL,V2,V6 Compared to ECG at 12/24/2017 08:46:36 BORDERLINE ECG Electronic Signature: ANUP CURRY DO 01/16/2025 11:14:50 [facility]06-15-2025 [facility] Medical Records Department [address] [place] [id number] Discharge Summary 12/10/24 1539 MR#: [id number] Acct: [id number] Name: MARCEL TURCIOS Rep #: [id number] : 1960 64 From: Mis Edmondson MD PCP: Dr. Jose David Sims MD Status:DIS IN Location: [place] [address] Providers Date of Admission: 12/09/24 Date of Discharge: 12/10/24 Primary Care Physician: Dr. Jose David Sims MD Consultations 12/09/24 02:04 Consult: Cardiology Routine Consulting Provider: Uyen Marino Reason for Consult: new onset afib EMERGENT Consult: No MD Notified: Yes Date Notified: 12/09/24 Time Notified: 06:59 Method of Notification: Text Reason For Visit: ACUTE HYPOXIC RESPIRATORY FAILURE Diagnosis Discharge Diagnosis (1) Elevated troponin: Status: Acute Code(s): R79.89 - Other specified abnormal findings of blood chemistry (2) COPD exacerbation: Status: Chronic Code(s): J44.1 - Chronic obstructive pulmonary disease with (acute) exacerbation (3) Dyspnea: Status: Acute Code(s): R06.00 - Dyspnea, unspecified (4) Atrial fibrillation with rapid ventricular response: Status: Acute Code(s): I48.91 - Unspecified atrial fibrillation Plan #Hypoxia due to community-acquired pneumonia and COPD exacerbation * Patient shortness of breath is improved. He was on BiPAP yesterday but is now on oxygen by nasal cannula. Chest x-ray showed evidence of consolidation in the lingula and his WBC was elevated. * Respiratory panel negative. On IV Solu-Medrol 40 mg every 8. On ceftriaxone and azithromycin. Breathing treatments bronchodilators. Titrate oxygen to maintain saturation above 90%. Respiratory panel was negative. * WBC was 21.3 on admission and is now down to 12.3. * Procalcitonin was elevated at 0.15. * #TAINA: * Creatinine was 1.5 on admission and is now up to 1.77. Hydrate gently with IV fluids and if creatinine does not trend downwards we will do further workup. #Elevated troponin * thought to be likely due to hypoxia. * Initial troponin was 20 and trended up to a peak of 36. 2D echo ordered. * EKG showed no acute ST changes. BNP was only 310. * 2D echo showed EF of 55% with poorly visualized valves due to body habitus. #A-fib with RVR * Patient was diagnosed with A-fib with RVR about a year ago and placed on metoprolol. However he said that metoprolol made him gain weight so he stopped taking it. Was not put on any anticoagulation. * Currently on Lovenox. Placed on Cardizem p.o. Cardiology consulted. TSH normal. #Chronic nicotine dependence * Smokes about 4 packs a day. Counseled to quit. Nicotine patch 21 mg daily. * #History of PTSD * Has a history of severe PTSD. On Ativan as needed. * #Class III obesity: BMI is 48.5. (Acutely, expected recovery prognosis. DVT prophylaxis: Already on Eliquis Time spent on patient today: 32 minutes. Medications at Discharge Home Medications albuterol sulfate 1.25 mg/3 mL solution for nebulization 1.25 mg inhalation Q4H PRN PRN dyspnea 12/08/24 budesonide-formoterol HFA 160 mcg-4.5 mcg/actuation aerosol inhaler (Breyna) 2 inh inhalation Q12H 12/08/24 magnesium oxide 400 mg (241.3 mg magnesium) tablet 400 mg PO BID 12/08/24 Hospital Course Operations None Procedures None Summary of Care Provided Minutes Spent on Discharge: 55 Hospital Course: Patient is a 64-year-old male with a past medical history as outlined was admitted through the ED on 12/08/2024 with complaint of shortness of breath. He had presented to the ED the same day with similar complaints and was admitted to be managed for acute exacerbation of heart failure as well as A-fib with RVR and acute hypoxic respiratory failure due to COPD examination. However he signed out on the same day. He came back on the evening of 12/08/2024 due to worsening shortness of breath and after being convinced by his family to come back. He says he was diagnosed with A-fib about a year ago and was discharged on metoprolol but it made him gain weight so he stopped taking it. He was not on any anticoagulation. He had associated orthopnea and wheezing but no PND. He did smoke about 4 packs of cigarettes daily. He denied any chest pain, cough, nausea vomiting or any other such symptoms. On coming to the ED for the second time, his heart rate was 125 respiratory rate was 38 which showed labored breathing and use of accessory muscles and he was also gasping. ABG done showed PO2 of 71 and pCO2 of 43.5 with pH of 7.35. Chemistry showed new anion gap metabolic acidosis and TAINA as creatinine was 1.5 with creatinine earlier that day being 1.01. Initial troponin was 36 and the delta troponin was 34. Procalcitonin was 0.15. EKG showed A-fib with RVR and chest x-ray showed right lower lobe opacity and mild cardiomegaly. CT of the chest done showed subsegmental atelectasis or consolidation o (more content not included)... [facility]06-15-2025 Progress note Author Odilia Burgos [facility] Note Date/Time December 10, 2024 7:[address] [facility] Medical Records Department [address] [place] [address] Progress Note - Hospitalist 12/10/24 0548 MR#: [id number] Acct: [id number] Name: MARCEL TURCIOS Rep #:[id number] : 1960 64 From: Odilia Burgos DO PCP: Dr. Jose David Sims MD Status:ADM IN Location: [place] [address] Hospitalist Note Called as patient was extremely agitated and threatening to sign out AGAINST MEDICAL ADVICE. He had multiple complaints. 1 was with regards to telemetry. I did explain the reason for ongoing telemetry and he did seem to accept that explanation and agreed to wear telemetry. His second complaint dealt with his CPAP machine not working. We have discussed this with respiratory therapy and their intent is to find a CPAP machine with nasal pillows to utilize for him to substitute for his machine machine. He states he is on a fixed income and is concerned about being able to afford a new one, and with his CPAP currently not working at home he is very concerned about that. I did discuss with him that case management/SW would talk to him on Wednesday with regards to this. He is on [facility] Medicare so they should be able to cover that. He is also upset about his fall risk. He evidently had an episode in the emergency department where he lowered himself to the ground because he had a coughing attack and felt like he was going to pass out due to his coughing. He is unable to use the urinal and needs to sit down on the toilet to urinate and defecate. He would like to be able to do so. He is agreeable to a bedside commode but states if they turn hisbed alarm on he is going to adamantly ignore it. I did give him 1 mg of IV Ativan to help calm him down we will continue his as needed Ativan as ordered with no change. Patient would markedly benefit from psych follow-up to help better manage his PTSD after discharge. 12/10/24 0551 <Electronically signed by Odilia Burgos DO> Cosigner Signature (if applicable): CC: ~ Signed ADDENDUM by Dr. Odilia Burgos DO on 12/10/24 at 0713 Addendum I was paged again at 646 by U requesting my presence back on the floor. Patient was very agitated again. I walked in the room and he was requesting to be discharged formally so he could follow-up with his primary care physician, Dr. Sims. I informed him that he was not medically stable for discharge. His heart rate at the time was 180 and he was very winded with dyspnea on conversation. Given the fact I could not give him formal discharge papers he became more agitated as I did inform he could leave AGAINST MEDICAL ADVICE. When I told him he could leave AGAINST MEDICAL ADVICE he said if he did that he would go away and never be seen again. I asked for clarification and he said hewould not eat drink or sleep. He says he has a lot of property and he would just go live on the property and disappear. He had made comments to the nursingstaff to that he would leave AGAINST MEDICAL ADVICE and never be seen again and you know what that means. Patient proceeded to walk out the door. Michelle tam was called. He did get down the elevator onto the main floor the hospital but became so dyspneic when [facility] arrived that he was escorted in wheelchair back to PCU. [place] slip was filled out. He will need to be evaluatedby crisis once he is medically stable for discharge. He did call his family prior to leaving his room and requested they come in soon as possible. Hopefully, when they arrive they will help calm him. Situation was signed out to the oncoming daytime attending physician. 12/10/24 0713<Electronically signed by Odilia Burgos DO> Cosigner Signature (if applicable): cc: ~* Signed [facility] Work Phone: 1(287) 131-387506-15-2025 Progress note [facility] Medical Records Department [address] [place] [address] Progress Note - Hospitalist 12/10/24 0548 MR#: [id number] Acct: [id number] Name: MARCEL TURCIOS Rep #:[id number] : 1960 64 From: Odilia Burgos DO PCP: Dr. Jose David Sims MD Status:ADM IN Location: [facility] [id number] Hospitalist Note Called as patient was extremely agitated and threatening to sign out AGAINST MEDICAL ADVICE. He hadmultiple complaints. 1 was with regards to telemetry. I did explain the reason for ongoing telemetry and he did seem to accept that explanation and agreed to wear telemetry. His second complaint dealt with his CPAP machine not working. We have discussed this with respiratory therapy and their intent is to find a CPAP machine with nasal pillows to utilize for him to substitute for his machine machine. He states he is on a fixed income and is concerned about being able to afford a new one, and with his CPAP currently not working at home he is very concerned about that. I did discuss with him that case management/SW would talk to him on Wednesday with regards to this. He is on [facility] Medicare so they should be able to cover that. He is also upset about his fall risk. He evidently had an episode inthe emergency department where he lowered himself to the ground because he had a coughing attack and felt like he was going to pass out due to his coughing. He is unable to use the urinal and needs to sit down on the toilet to urinate and defecate. He would like to be able to do so. He is agreeableto a bedside commode but states if they turn hisbed alarm on he is going to adamantly ignore it. I did give him 1 mg of IV Ativan to help calm him down we will continue his as needed Ativan as ordered with no change. Patient would markedly benefit from psych follow-up to help better manage his PTSDafter discharge. 12/10/24 2943 Cosigner Signature (if applicable): CC: ~ Signed ADDENDUM by Dr. Odilia Burgos DO on 12/10/24 at 9785 Addendum I was paged again at [phone] [facility] requesting my presence back on the floor. Patient was very agitatedagain. I walked in the room and he was requesting to be discharged formally so he could follow-up with his primary care physician, Dr. Sims. I informed him that he was not medically stable for discharge. His heart rate at the time was 180 and he was very winded with dyspnea on conversation. Given the fact I could not give him formal discharge papers he became more agitated as I did inform he could leave AGAINST MEDICAL ADVICE. When I told him he could leave AGAINST MEDICAL ADVICE he said if hedid that he would go away and never be seen again. I asked for clarification and he said hewould not eat drink or sleep. He says he has a lot of property and he would just go live on the property anddisappear. He had made comments to the nursingstaff to that he would leave AGAINST MEDICAL ADVICE and never be seen again and you know what that means. Patient proceeded to walk out the door. Michelle turcios was called. He did get down the elevator onto the main floor the hospital but became so dyspneic when [facility] arrived that he was escorted in wheelchair back to [facility] [place] slip was filled out. He will need to be evaluatedby crisis once he is medically stable for discharge. He did call his family prior to leaving his room and requested they come in soon as possible. Hopefully, when they arrive they will help calm him. Situation was signed out to the oncoming daytime attending physician. 12/10/24 0713 Cosigner Signature (if applicable): cc: ~* Signed [facility]06-14-2025 Consult note Author Jesse Urban [facility] Note Date/Time December 09, 2024 8:[address] [facility] Medical Records Department [address] [facility] [place] [address] Consultation - Cardiology 12/09/24 1016 MR#: [id number] Acct: [id number] Name: MARCEL TURCIOS Rep #:[id number] : 1960 64 From: Jesse Urban MD PCP: Dr. Jose David Sims MD Status:ADM IN Location: [place] [address] Assessment & Plan Assessment/Plan (1) Elevated troponin: (2) COPD exacerbation: (3) Dyspnea: (4) Atrial fibrillation with rapid ventricular response: PLAN: Plan 1. Elevated troponin. His high-sensitivity troponins is elevated in the 30s. At this time denies chest pain. This is likely all secondary to demand; he willlikely benefit from a stress test. Upon review of his records his last stress test was about 4 years ago at which time it appeared normal. Echocardiogram hasbeen ordered results are pending 2. A-fib apparently rate controlled at this time. Continue anticoagulation at this time. Continue Cardizem 3. COPD 4. Nicotine abuse HPI Consult Data Date of Consult: 12/09/24 HPI Narrative Reason for Consultation: A-fib, elevated troponins, HPI Narrative: MARCEL TURCIOS, is a 64 M who presents with shortness of breath and feeling unwell. He was in the ER earlier today and was admitted for COPD exacerbation. He decided to leave AGAINST MEDICAL ADVICE and came back to the ER after his family urged him to come back. Reports ongoing shortness of breath he reports feeling unwell. He reports occasional chest pain. Pain is left-sided nonradiating moderate in intensity. Its all comes on and off. At this time he has no chest pain. He denies fever, denies chills otherwise has no other complaints. He has been admitted. Cardiac medications restarted. Currently getting antibiotics and being treated for COPD exacerbation. [facility] Medical History PTSD (post-traumatic stress disorder) Foraminal stenosis of lumbosacral region ZAN (obstructive sleep apnea) Back pain Anxiety COPD (chronic obstructive pulmonary disease) Radiculitis of leg Lumbar canal stenosis Foraminal stenosis of lumbosacral region Back pain Anxiety COPD (chronic obstructive pulmonary disease) Obstructive sleep apnea Home Medications ?Medication ?Instructions ?Recorded ?Last Taken ?Type albuterol sulfate 1.25 mg/3 mL 1.25 mg inhalation Q4H PRN PRN 12/08/24 Unknown History solution for nebulization dyspnea budesonide-formoterol HFA 160 2 inh inhalation Q12H Unknown History mcg-4.5 mcg/actuation aerosol inhaler (Breyna) magnesium oxide 400 mg (241.3 mg 400 mg PO BID 5 Unknown History magnesium) tablet Allergy/AdvReac Type Severity Reaction Status Date / Time codeine Allergy Hives Verified 12/08/24 21:09 Iodinated Contrast Media Allergy Hives Verified 12/08/24 21:09 (Iodinated Contrast Media - IV Dye) diclofenac AdvReac Swelling Verified 12/08/24 21:09 metaxalone AdvReac Swelling Verified 12/08/24 21:09 methylphenidate (From AdvReac hallucinati Verified 12/08/24 21:09 Ritalin) ons Phenylpiperazine AdvReac Other Verified 12/08/24 21:09 Antidepressant Tetracyclic Antidepressants AdvReac Other Verified 12/08/24 21:09 Tricyclic Antidepressants AdvReac Other Verified 12/08/24 21:09 and Tricy Family History Other Diabetes Hypertension Surgical History S/P epidural steroid injection Social History household members: family Smoking Status: Current every day smoker tobacco type: cigarettes and e- cigarettes alcohol intake: never substance use type: does not use Physical Exam Narrative General?alert oriented, obese HEENT- normal extraocular movements Neck supple JVD difficult to assess Cardiovascular- normal S1-S2, irregular Pulmonary-decreased air entry bilateral bases Abdomen- soft to palpation, normal sounds Extremities- no edema Musculoskeletal- no tenderness no swelling Neurological -alert oriented Psych -normal affect Risk Stratification Risk Stratification Applicable: No Objective Data Vital Signs: Vital Signs Temp Pulse Resp BP Pulse Ox O2 Del Method FiO2 98.2 F 94 20 H 116/66 93 Room Air 21 12/09/24 06:06 12/09/24 08:35 12/09/24 08:35 12/09/24 06:06 12/09/24 06:06 12/09/24 08:35 12/09/24 06:06 Oxygen Delivery Method Room Air Weight: 367 lb 4.642 oz Body Mass Index (BMI) 48.4 Intake & Output: Intake and Output for Last 24 Hours 12/07/24 12/08/24 12/09/24 23:59 23:59 23:59 Intake Total 440 / 440 Output Total 0 / 0 Balance 440 / 440 Lab / Micro Data 12/09/24 05:32 12/09/24 05:32 Labs: Laboratory Results - last 24 hr 12/08/24 02:20: Lactic Acid 1.2 12/08/24 21:20: WBC 20.3 H, RBC 6.14, Hgb 18.4 H*, Hct 53.8, MCV 87.6, MCH 30.0,MCHC 34.2, RDW Std Deviation 48.6 H, RDW Coeff of Penelope 15.8 H, Plt Count 267, MPV9.0, Immature Gran % (Auto) 0.600, Neut % (Auto) 72.1 H, Lymph % (Auto) 17.5 L, Mclennan % (Auto) 8.6, Eos % (Auto) 0.4, Baso % (Auto) 0.8, Absolute Neuts (auto) 14.6 H, Absolute Lymphs (auto) 3.55, Nucleated RBC % 0, Differential Comment SCANNED, Sodium 139, Potassium 4.1, Chloride 102, Carbon Dioxide 17.3 L, Anion Gap 20 H, BUN 13, Creatinine 1.50 H, Estim Creat Clear Calc 80.71, Est GFR (MDRD) Non-Af 51 L, BUN/Creatinine Ratio 8.4 L, Glucose 157 H, Calcium 10.2, Troponin T High Sens 36 H D 12/08/24 23:32: Troponin T Hi Sens 2 Hr 34 H, Procalcitonin 0.15 H 12/09/24 05:32: WBC 12.3 H, RBC 5.64, Hgb 16.7 H, Hct 49.6, MCV 87.9, MCH 29.6, MCHC 33.7, RDW Std Deviation 49.1 H, RDW Coeff of Penelope 15.4 H, Plt Count 214, MPV9.1, Immature Gran % (Auto) 0.500, Neut % (Auto) 75.7 H, Lymph % (Auto) 16.7 L, Mclennan % (Auto) 6.4, Eos % (Auto) 0.2, Baso % (Auto) 0.5, Absolute Neuts (auto) 9.3 H, Absolute Lymphs (auto) 2.05, Nucleated RBC % 0, Sodium 136, Potassium 4.4, Chloride 105, Carbon Dioxide 18.1 L, Anion Gap 13, BUN 18, Creatinine 1.77 H, Estim Creat Clear Calc 67.43, Est GFR (MDRD) Non-Af 42 L, BUN/Creatinine Ratio 10.0, Glucose 157 H, Calcium 9.2, Phosphorus 2.6 L, Magnesium 2.1, Total Bilirubin 0.71, AST 37, ALT 60 H, Alkaline Phosphatase 77, Total Protein 7.3, Albumin 4.1, Globulin 3.1, Albumin/Globulin Ratio 1.3, TSH 3.020 12/09/24 09:06: Urine Color Yellow, Urine Clarity Sl. Cloudy, Urine pH 5.0, Ur Specific [place] 1.025, Urine Protein 100 H, Urine Glucose (UA) 50 H, Urine Ketones 5 H, Urine Occult Blood 25 H, Urine Nitrite Negative, Urine Bilirubin 3 H, Urine Urobilinogen 1 H, Ur Leukocyte Esterase 25 H, Urine RBC 0-5 SEEN, UrineWBC 5-10 SEEN, Ur Squamous Epith Cells 0-5 SEEN, Amorphous Sediment 1+, Urine Bacteria 0 SEEN, Hyaline Casts 0-5 SEEN, Fine Granular Casts 5-10 SEEN, Urine Mucus 0 SEEN Micro: Microbiology 12/09/24 03:35 Mucosa - Nasopharyngeal Respiratory Panel (PCR) - Final 12/09/24 02:59 Nasal Secretion SARS-CoV-2 Antigen (Rapid) - Final ABG Data ABG results: ABG 12/09/24 00:38 Specimen Type ART Sample Site R Brach pH 7.35 Bicarbonate Actual 24.1 Total CO2 25 Base Excess -2 O2 Saturation 93 L O2 % 21.0 ABG pCO2 43.5 ABG pO2 71 L Oscar Test Positive O2 Delivery Device BiPAP Vent Mode Not entered Clinical Comments Home unit: 17 21% Cardiology Labs/Tests 12/08/24 02:20: Lactic Acid 1.2 12/08/24 21:20: WBC 20.3 H, RBC 6.14, Hgb 18.4 H*, Hct 53.8, MCV 87.6, MCH 30.0,MCHC 34.2, Plt Count 267, MPV 9.0, Immature Gran % (Auto) 0.600, Neut % (Auto) 72.1 H, Lymph % (Auto) 17.5 L, Mclennan % (Auto) 8.6, Eos % (Auto) 0.4, Baso % (Auto) 0.8, Absolute Neuts (auto) 14.6 H, Nucleated RBC % 0, Sodium 139, Potassium 4.1, Chloride 102, Carbon Dioxide 17.3 L, Anion Gap 20 H, BUN 13, Creatinine 1.50 H, Est GFR (MDRD) Non-Af 51 L, BUN/Creatinine Ratio 8.4 L, Glucose 157 H, Calcium 10.2 12/09/24 00:38: pH 7.35, Bicarbonate Actual 24.1, Base Excess -2, O2 Saturation 93 L, ABG pCO2 43.5, ABG pO2 71 L, Oscar Test Positive 12/09/24 05:32: WBC 12.3 H, RBC 5.64, Hgb 16.7 H, Hct 49.6, MCV 87.9, MCH 29.6, MCHC 33.7, Plt Count 214, MPV 9.1, Immature Gran % (Auto) 0.500, Neut % (Auto) 75.7 H, Lymph % (Auto) 16.7 L, Mclennan % (Auto) 6.4, Eos % (Auto) 0.2, Baso % (Auto) 0.5, Absolute Neuts (auto) 9.3 H, Nucleated RBC % 0, Sodium 136, Potassium 4.4, Chloride 105, Carbon Dioxide 18.1 L, Anion Gap 13, BUN 18, Creatinine 1.77 H, Est GFR (MDRD) Non-Af 42 L, BUN/Creatinine Ratio 10.0, [id number] H, Calcium 9.2, Phosphorus 2.6 L, Magnesium 2.1, Total Bilirubin 0.71 12/09/24 09:06: Urine Color Yellow, Urine Clarity Sl. Cloudy, Urine pH 5.0, Ur Specific [place] 1.025, Urine Protein 100 H, Urine Glucose (UA) 50 H, Urine Ketones 5 H, Urine Occult Blood 25 H, Urine Nitrite Negative, Urine Bilirubin 3 H, Urine Urobilinogen 1 H, Ur Leukocyte Esterase 25 H, Urine RBC 0-5 SEEN, UrineWBC 5-10 SEEN Rhythm: EKG: ECHO: Stress Test: Cardiac Cath: PCI: CT Surgery: Holter monitor: EPS: PPM: CXR: Chest CT Scan: Radiography Diagnostic Testing: Radiology Impression Chest X-Ray 12/08/24 21:48 IMPRESSION: 1. Right lower lobe opacity, which may represent atelectasis or pneumonitis/pneumonia. 2. Mild cardiomegaly. Reading Location: [id number] Chest CT 12/08/24 23:54 IMPRESSION: Coronary artery calcification (CAC) is is present Subsegmental atelectasis/consolidation in the lingula. Please evaluate to exclude superimposed pneumonia. Reading [facility] 12/09/242057 <Electronically signed by Jesse Urban MD> Cosigner Signature (if applicable): CC: Dr. Jose David Sims MD~ Signed [facility] Work Phone: [phone] Consult note [facility] Medical Records Department [address] [place] [address] Consultation - Cardiology 12/09/24 1016 MR#: [id number] Acct: [id number] Name: MARCEL TURCIOS Rep #:[id number] : 1960 64 From: Jesse Urban MD PCP: Dr. Jose David Sims MD Status:ADM IN Location: [place] [address] Assessment & Plan Assessment/Plan (1) Elevated troponin: (2) COPD exacerbation: (3) Dyspnea: (4) Atrial fibrillation with rapid ventricular response: PLAN: Plan 1. Elevated troponin. His high-sensitivity troponins is elevated in the 30s. At this time denies chest pain. This is likely all secondary to demand; he willlikely benefit from a stress test. Upon review of his records his last stress test was about 4 years ago at which time it appeared normal. Echoc ardiogram hasbeen ordered results are pending 2. A-fib apparently rate controlled at this time. Continue anticoagulation at this time. Continue Cardizem 3. COPD 4. Nicotine abuse HPI Consult Data Date of Consult: 12/09/24 HPI Narrative Reason for Consultation: A-fib, elevated troponins, HPI Narrative: MARCEL TURCIOS, is a 64 M who presents with shortness of breath and feeling unwell. He was in the ERearlier today and was admitted for COPD exacerbation. He decided to leave AGAINST MEDICAL ADVICE and came back to the ER after his family urged him to come back. Reports ongoing shortness of breath he reports feeling unwell. He reports occasional chest pain. Pain is left-sided nonradiating moderatein intensity. Its all comes on and off. At this time he has no chest pain. He denies fever, denies chills otherwise has no other complaints. He has been admitted. Cardiac medications restarted. Currently getting antibiotics and being treated for COPD exacerbation. [facility] Medical History PTSD (post-traumatic stress disorder) Foraminal stenosis of lumbosacral region ZAN (obstructive sleep apnea) Back pain Anxiety COPD (chronic obstructive pulmonary disease) Radiculitis of leg Lumbar canal stenosis Foraminal stenosis of lumbosacral region Back pain Anxiety COPD (chronic obstructive pulmonary disease) Obstructive sleep apnea Home Medications ?Medication ?Instructions ?Recorded ?Last Taken ?Type albuterol sulfate 1.25 mg/3 mL 1.25 mg inhalation Q4H PRN PRN 12/08/24 Unknown History solution for nebulization dyspnea budesonide-formoterol HFA 160 2 inh inhalation Q12H Unknown History mcg-4.5 mcg/actuation aerosol inhaler (Breyna) magnesium oxide 400 mg (241.3 mg 400 mg PO BID 5 Unknown History magnesium) tablet Allergy/AdvReac Type Severity Reaction Status Date / Time codeine Allergy Hives Verified 12/08/24 21:09 Iodinated Contrast Media Allergy Hives Verified 12/08/24 21:09 (Iodinated Contrast Media - IV Dye) diclofenac AdvReac Swelling Verified 12/08/24 21:09 metaxalone AdvReac Swelling Verified 12/08/24 21:09 methylphenidate (From AdvReac hallucinati Verified 12/08/24 21:09 Ritalin) ons Phenylpiperazine AdvReac Other Verified 12/08/24 21:09 Antidepressant Tetracyclic Antidepressants AdvReac Other Verified 12/08/24 21:09 Tricyclic Antidepressants AdvReac Other Verified 12/08/24 21:09 and Tricy Family History Other Diabetes Hypertension Surgical History S/P epidural steroid injection Social History household members: family Smoking Status: Current every day smoker tobacco type: cigarettes and e-cigarettes alcohol intake: never substance use type: does not use Physical Exam Narrative General?alert oriented, obese HEENT- normal extraocular movements Neck supple JVD difficult to assess Cardiovascular- normal S1-S2, irregular Pulmonary-decreased air entry bilateral bases Abdomen- soft to palpation, normal sounds Extremities- no edema Musculoskeletal- no tenderness no swelling Neurological -alert oriented Psych -normal affect Risk Stratification Risk Stratification Applicable: No Objective Data Vital Signs: Vital Signs Temp Pulse Resp BP Pulse Ox O2 Del Method FiO2 98.2 F 94 20 H 116/66 93 Room Air 21 12/09/24 06:06 12/09/24 08:35 12/09/24 08:35 12/09/24 06:06 12/09/24 06:06 12/09/24 08:35 12/09/24 06:06 Oxygen Delivery Method Room Air Weight: 367 lb 4.642 oz Body Mass Index (BMI) 48.4 Intake & Output: Intake and Output for Last 24 Hours 12/07/24 12/08/24 12/09/24 23:59 23:59 23:59 Intake Total 440 / 440 Output Total 0 / 0 Balance 440 / 440 Lab / Micro Data 12/09/24 05:32 12/09/24 05:32 Labs: Laboratory Results - last 24 hr 12/08/24 02:20: Lactic Acid 1.2 12/08/24 21:20: WBC 20.3 H, RBC 6.14, Hgb 18.4 H*, Hct 53.8, MCV 87.6, MCH 30.0,MCHC 34.2, RDW Std Deviation 48.6 H, RDW Coeff of Penelope 15.8 H, Plt Count 267, MPV9.0, Immature Gran % (Auto) 0.600, Neut% (Auto) 72.1 H, Lymph % (Auto) 17.5 L, Mclennan % (Auto) 8.6, Eos % (Auto) 0.4, Baso % (Auto) 0.8, Absolute Neuts (auto) 14.6 H, Absolute Lymphs (auto) 3.55, Nucleated RBC % 0, Differential Comment SCANNED, Sodium 139, Potassium 4.1, Chloride 102, Carbon Dioxide 17.3 L, Anion Gap 20 H, BUN 13, Creatinine 1.50 H, Estim Creat Clear Calc 80.71, Est GFR (MDRD) Non-Af 51 L, BUN/Creatinine Ratio 8.4 L, Glucose 157 H, Calcium 10.2, Troponin T High Sens 36 H D 12/08/24 23:32: Troponin T Hi Sens 2 Hr 34 H, Procalcitonin 0.15 H 12/09/24 05:32: WBC 12.3 H, RBC 5.64, Hgb 16.7 H, Hct 49.6, MCV 87.9, MCH 29.6, MCHC 33.7, RDW Std Deviation 49.1 H, RDW Coeff of Penelope 15.4 H, Plt Count 214, MPV9.1, Immature Gran % (Auto) 0.500, Neut% (Auto) 75.7 H, Lymph % (Auto) 16.7 L, Mclennan % (Auto) 6.4, Eos % (Auto) 0.2, Baso % (Auto) 0.5, Absolute Neuts (auto) 9.3 H, Absolute Lymphs (auto) 2.05, Nucleated RBC % 0, Sodium 136, Potassium 4.4,Chloride 105, Carbon Dioxide 18.1 L, Anion Gap 13, BUN 18, Creatinine 1.77 H, Estim Creat Clear Calc 67.43, Est GFR (MDRD) Non-Af 42 L, BUN/Creatinine Ratio 10.0, Glucose 157 H, Calcium 9.2, Phosphorus 2.6 L, Magnesium 2.1, Total Bilirubin 0.71, AST 37, ALT 60 H, Alkaline Phosphatase 77, Total Protein 7.3, Albumin 4.1, Globulin 3.1, Albumin/Globulin Ratio 1.3, TSH 3.020 12/09/24 09:06: Urine Color Yellow, Urine Clarity Sl. Cloudy, Urine pH 5.0, Ur Specific [place] 1.025, Urine Protein 100 H, Urine Glucose (UA) 50 H, Urine Ketones 5 H, Urine Occult Blood 25 H, Urine Nitrite Negative, Urine Bilirubin 3 H, Urine Urobilinogen 1 H, Ur Leukocyte Esterase 25 H, Urine RBC0-5 SEEN, UrineWBC 5-10 SEEN, Ur Squamous Epith Cells 0-5 SEEN, Amorphous Sediment 1+, Urine Bacteria 0 SEEN, Hyaline Casts 0-5 SEEN, Fine Granular Casts 5-10 SEEN, Urine Mucus 0 SEEN Micro: Microbiology 12/09/24 03:35 Mucosa - Nasopharyngeal Respiratory Panel (PCR) - Final 12/09/24 02:59 Nasal Secretion SARS-CoV-2 Antigen (Rapid) - Final ABG Data ABG results: ABG 12/09/24 00:38 Specimen Type ART Sample Site R Brach pH 7.35 Bicarbonate Actual 24.1 Total CO2 25 Base Excess -2 O2 Saturation 93 L O2 % 21.0 ABG pCO2 43.5 ABG pO2 71 L Oscar Test Positive O2 Delivery Device BiPAP Vent Mode Not entered Clinical Comments Home unit: 17 21% Cardiology Labs/Tests 12/08/24 02:20: Lactic Acid 1.2 12/08/24 21:20: WBC 20.3 H, RBC 6.14, Hgb 18.4 H*, Hct 53.8, MCV 87.6, MCH 30.0,MCHC 34.2, Plt Count 267, MPV 9.0, Immature Gran % (Auto) 0.600, Neut % (Auto) 72.1 H, Lymph % (Auto) 17.5 L, Mclennan % (Auto) 8.6, Eos % (Auto) 0.4, Baso % (Auto) 0.8, Absolute Neuts (auto) 14.6 H, Nucleated RBC % 0, Sodium 139, Potassium 4.1, Chloride 102, Carbon Dioxide 17.3 L, Anion Gap 20 H, BUN 13, Creatinine 1.50 H, Est GFR (MDRD) Non-Af 51 L, BUN/Creatinine Ratio 8.4 L, Glucose 157 H, Calcium 10.2 12/09/24 00:38: pH 7.35, Bicarbonate Actual 24.1, Base Excess -2, O2 Saturation 93 L, ABG pCO2 43.5, ABG pO2 71 L, Oscar Test Positive 12/09/24 05:32: WBC 12.3 H, RBC 5.64, Hgb 16.7 H, Hct 49.6, MCV 87.9, MCH 29.6, MCHC 33.7, Plt Count 214, MPV 9.1, Immature Gran % (Auto) 0.500, Neut % (Auto) 75.7 H, Lymph % (Auto) 16.7 L, Mclennan % (Auto) 6.4, Eos % (Auto) 0.2, Baso % (Auto) 0.5, Absolute Neuts (auto) 9.3 H, Nucleated RBC % 0, Sodium 136, Potassium 4.4, Chloride 105, Carbon Dioxide 18.1 L, Anion Gap 13, BUN 18, Creatinine 1.77 H, Est GFR (MDRD) Non-Af 42 L, BUN/Creatinine Ratio 10.0, [id number] H, Calcium 9.2, Phosphorus 2.6 L, Magnesium 2.1, Total Bilirubin 0.71 12/09/24 09:06: Urine Color Yellow, Urine Clarity Sl. Cloudy, Urine pH 5.0, Ur Specific [place] 1.025, Urine Protein 100 H, Urine Glucose (UA) 50 H, Urine Ketones 5 H, Urine Occult Blood 25 H, Urine Nitrite Negative, Urine Bilirubin 3 H, Urine Urobilinogen 1 H, Ur Leukocyte Esterase 25 H, Urine RBC0-5 SEEN, UrineWBC 5-10 SEEN Rhythm: EKG: ECHO: Stress Test: Cardiac Cath: PCI: CT Surgery: Holter monitor: EPS: PPM: CXR: Chest CT Scan: Radiography Diagnostic Testing: Radiology Impression Chest X-Ray 12/08/24 21:48 IMPRESSION: 1. Right lower lobe opacity, which may represent atelectasis or pneumonitis/pneumonia. 2. Mild cardiomegaly. Reading Location: [facility] Chest CT 12/08/24 23:54 IMPRESSION: Coronary artery calcification (CAC) is is present Subsegmental atelectasis/consolidation in the lingula. Please evaluate to exclude superimposed pneumonia. Reading Location: [place] [address] 12/09/242057 Cosigner Signature (if applicable): CC: Dr. Jose David Sims MD~ Signed [facility]06-14-2025 Progress note Author Mis Edmondson [facility] Note Date/Time December 09, 2024 6:35 pm [facility] Medical Records Department [address] [place] [address] Progress Note 12/09/24 1639 MR#: [id number] Acct: [id number] Name: MARCEL TURCIOS Rep #:[id number] : 1960 64 From: Mis Edmondson MD PCP: Dr. Jose David Sims MD Status:ADM IN Location: [place] [address]- 1 Subjective Subjective Patient seen and examined. He had no complaints this morning. Patient was admitted yesterday for hypoxia due to presumptive COPD exacerbation as well as A-fib with RVR. However he signed out AGAINST MEDICAL ADVICE. He subsequently came back to the hospital a few hours later. He admits to feeling very anxious.Reveiw of systems is otherwise negative. Objective Data Objective Data Vital Signs: Vital Signs Temp Pulse Resp BP Pulse Ox O2 Del Method FiO2 98.2 F 93 18 124/71 H 93 Room Air 21 12/09/24 10:22 12/09/24 15:32 12/09/24 15:32 12/09/24 12:06 12/09/24 10:22 12/09/24 14:38 12/09/24 06:06 Oxygen Delivery Method Room Air Weight: 367 lb 4.642 oz Body Mass Index (BMI) 48.4 Intake & Output: Intake and Output for Last 24 Hours 12/07/24 12/08/24 12/09/24 23:59 23:59 23:59 Intake Total / Output Total 0 / 0 Balance / Lab / Micro Data 12/09/24 05:32 12/09/24 05:32 Labs: Laboratory Results - last 24 hr 12/08/24 02:20: Lactic Acid 1.2 12/08/24 21:20: WBC 20.3 H, RBC 6.14, Hgb 18.4 H*, Hct 53.8, MCV 87.6, MCH 30.0,MCHC 34.2, RDW Std Deviation 48.6 H, RDW Coeff of Penelope 15.8 H, Plt Count 267, MPV9.0, Immature Gran % (Auto) 0.600, Neut % (Auto) 72.1 H, Lymph % (Auto) 17.5 L, Mclennan % (Auto) 8.6, Eos % (Auto) 0.4, Baso % (Auto) 0.8, Absolute Neuts (auto) 14.6 H, Absolute Lymphs (auto) 3.55, Nucleated RBC % 0, Differential Comment SCANNED, Sodium 139, Potassium 4.1, Chloride 102, Carbon Dioxide 17.3 L, Anion Gap 20 H, BUN 13, Creatinine 1.50 H, Estim Creat Clear Calc 80.71, Est GFR (MDRD) Non-Af 51 L, BUN/Creatinine Ratio 8.4 L, Glucose 157 H, Calcium 10.2, Troponin T High Sens 36 H D 12/08/24 23:32: Troponin T Hi Sens 2 Hr 34 H, Procalcitonin 0.15 H 12/09/24 05:32: WBC 12.3 H, RBC 5.64, Hgb 16.7 H, Hct 49.6, MCV 87.9, MCH 29.6, MCHC 33.7, RDW Std Deviation 49.1 H, RDW Coeff of Penelope 15.4 H, Plt Count 214, MPV9.1, Immature Gran % (Auto) 0.500, Neut % (Auto) 75.7 H, Lymph % (Auto) 16.7 L, Mclennan % (Auto) 6.4, Eos % (Auto) 0.2, Baso % (Auto) 0.5, Absolute Neuts (auto) 9.3 H, Absolute Lymphs (auto) 2.05, Nucleated RBC % 0, Sodium 136, Potassium 4.4, Chloride 105, Carbon Dioxide 18.1 L, Anion Gap 13, BUN 18, Creatinine 1.77 H, Estim Creat Clear Calc 67.43, Est GFR (MDRD) Non-Af 42 L, BUN/Creatinine Ratio 10.0, Glucose 157 H, Calcium 9.2, Phosphorus 2.6 L, Magnesium 2.1, Total Bilirubin 0.71, AST 37, ALT 60 H, Alkaline Phosphatase 77, Total Protein 7.3, Albumin 4.1, Globulin 3.1, Albumin/Globulin Ratio 1.3, TSH 3.020 12/09/24 09:06: Urine Color Yellow, Urine Clarity Sl. Cloudy, Urine pH 5.0, Ur Specific [place] 1.025, Urine Protein 100 H, Urine Glucose (UA) 50 H, Urine Ketones 5 H, Urine Occult Blood 25 H, Urine Nitrite Negative, Urine Bilirubin 3 H, Urine Urobilinogen 1 H, Ur Leukocyte Esterase 25 H, Urine RBC 0-5 SEEN, UrineWBC 5-10 SEEN, Ur Squamous Epith Cells 0-5 SEEN, Amorphous Sediment 1+, Urine Bacteria 0 SEEN, Hyaline Casts 0-5 SEEN, Fine Granular Casts 5-10 SEEN, Urine Mucus 0 SEEN Micro: Microbiology 12/09/24 07:30 Sputum, Expectorated/Coughed Gram Stain - Final 12/09/24 07:30 Sputum, Expectorated/Coughed Respiratory Culture - Final 12/09/24 03:35 Mucosa - Nasopharyngeal Respiratory Panel (PCR) - Final 12/09/24 02:59 Nasal Secretion SARS-CoV-2 Antigen (Rapid) - Final ABG Data ABG results: ABG 12/09/24 00:38 Specimen Type ART Sample Site R Brach pH 7.35 Bicarbonate Actual 24.1 Total CO2 25 Base Excess -2 O2 Saturation 93 L O2 % 21.0 ABG pCO2 43.5 ABG pO2 71 L Oscar Test Positive O2 Delivery Device BiPAP Vent Mode Not entered Clinical Comments Home unit: 17/5 21% Radiography Diagnostic Testing: Radiology Impression Chest X-Ray 12/08/24 21:48 IMPRESSION: 1. Right lower lobe opacity, which may represent atelectasis or pneumonitis/pneumonia. 2. Mild cardiomegaly. Reading Location: [facility] Chest CT 12/08/24 23:54 IMPRESSION: Coronary artery calcification (CAC) is is present Subsegmental atelectasis/consolidation in the lingula. Please evaluate to exclude superimposed pneumonia. [facility] Echocardiogram 12/09/24 08:15 Interpretation Summary Poor windows due to body habitus The LV ejection fraction is 55 %. Poorly visualized mitral valve No mitral valve insufficiency. Poorly visualized tricuspid valve Poorly visualized right ventricle Ordering Physician: Mis Edmondson Referring Physician: Jose David Sims MD Performed By: Erin Weinstein RDCS Physical Exam Const alert, oriented x3 and no apparent distress Constitutional Narrative: class III obesity General Appearance: cooperative HEENT normocephalic, head/scalp atraumatic, moist oral mucous membranes and oropharynxnormal Eyes PERRL and EOMs intact bilaterally Neck supple Lymph Lymphatic: no lymphedema noted Resp Resp Narrative: Mildly diminished breath sounds bibasilarly. No wheezes or crackles. On room air. Cardio regular rhythm, S1 normal heart sound, S2 normal heart sound and no murmurs GI normal to inspection, nondistended, normoactive bowel sounds, soft to palpation,non-tender and non-distended GI Narrative: obese abdomen Extremity normal capillary refill, no clubbing, cyanosis or edema and no calf tenderness General Extremity: no tenderness to palpation of joints or extremities Skin General Skin Exam: no breakdown Neuro no focal motor deficits and no sensory deficits noted Motor Exam: strength 5/5 throughout Psych cooperative Mood & Affect: anxious Assessment & Plan Assessment/Plan (1) Acute respiratory failure with hypoxia: PLAN: Plan #Hypoxia due to community-acquired pneumonia and COPD exacerbation * Patient shortness of breath is improved. He was on BiPAP yesterday but is now on oxygen by nasal cannula. Chest x-ray showed evidence of consolidation in the lingula and his WBC was elevated. * Respiratory panel negative. On IV Solu-Medrol 40 mg every 8. On ceftriaxone and azithromycin. Breathing treatments bronchodilators. Titrate oxygen to maintain saturation above 90%. Respiratory panel was negative. * WBC was 21.3 on admission and is now down to 12.3. * Procalcitonin was elevated at 0.15. * #TAINA: * Creatinine was 1.5 on admission and is now up to 1.77. Hydrate gently with IV fluids and if creatinine does not trend downwards we will do further workup. #Elevated troponin * thought to be likely due to hypoxia. * Initial troponin was 20 and trended up to a peak of 36. 2D echo ordered. * EKG showed no acute ST changes. BNP was only 310. * 2D echo showed EF of 55% with poorly visualized valves due to body habitus. #A-fib with RVR * Patient was diagnosed with A-fib with RVR about a year ago and placed on metoprolol. However he said that metoprolol made him gain weight so he stopped taking it. Was not put on any anticoagulation. * Currently on Lovenox. Placed on Cardizem p.o. Cardiology consulted. TSH normal. #Chronic nicotine dependence * Smokes about 4 packs a day. Counseled to quit. Nicotine patch 21 mg daily. * #History of PTSD * Has a history of severe PTSD. On Ativan as needed. * #Class III obesity: BMI is 48.5. (Acutely, expected recovery prognosis. DVT prophylaxis: Already on Eliquis Time spent on patient today: 32 minutes. Charges/Coding Visit Charges Inpatient E&M: 52045 PROLNG IP/OBS E/M EA 15 MIN 12/09/245 <Electronically signed by Mis Edmondson MD> Mis Edmondson MD Cosigner Signature (if applicable): CC: ~ Signed [facility] Work Phone: [phone] [phone] Progress note [facility] Medical Records Department [address] [place] [address] Progress Note 12/09/24 1639 MR#: [id number] Acct: [id number] Name: MARCEL TURCIOS Rep #:[id number] : 1960 64 From: Mis Edmondson MD PCP: Dr. Jose David Sims MD Status:ADM IN Location: [place] [address] Subjective Subjective Patient seen and examined. He had no complaints this morning. Patient was admitted yesterday for hypoxia due to presumptive COPD exacerbation as well as A-fib with RVR. However he signed out AGAINST MEDICAL ADVICE. He subsequently came back to the hospital a few hours later. He admits to feeling very anxious.Reveiw of systems is otherwise negative. Objective Data Objective Data Vital Signs: Vital Signs Temp Pulse Resp BP Pulse Ox O2 Del Method FiO2 98.2 F 93 18 124/71 H 93 Room Air 21 12/09/24 10:22 12/09/24 15:32 12/09/24 15:32 12/09/24 12:06 12/09/24 10:22 12/09/24 14:38 12/09/24 06:06 Oxygen Delivery Method Room Air Weight: 367 lb 4.642 oz Body Mass Index (BMI) 48.4 Intake & Output: Intake and Output for Last 24 Hours 12/07/24 12/08/24 12/09/24 23:59 23:59 23:59 Intake Total Output Total 0 / 0 Balance Lab / Micro Data 12/09/24 05:32 12/09/24 05:32 Labs: Laboratory Results - last 24 hr 12/08/24 02:20: Lactic Acid 1.2 12/08/24 21:20: WBC 20.3 H, RBC 6.14, Hgb 18.4 H*, Hct 53.8, MCV 87.6, MCH 30.0,MCHC 34.2, RDW Std Deviation 48.6 H, RDW Coeff of Penelope 15.8 H, Plt Count 267, MPV9.0, Immature Gran % (Auto) 0.600, Neut% (Auto) 72.1 H, Lymph % (Auto) 17.5 L, Mclennan % (Auto) 8.6, Eos % (Auto) 0.4, Baso % (Auto) 0.8, Absolute Neuts (auto) 14.6 H, Absolute Lymphs (auto) 3.55, Nucleated RBC % 0, Differential Comment SCANNED, Sodium 139, Potassium 4.1, Chloride 102, Carbon Dioxide 17.3 L, Anion Gap 20 H, BUN 13, Creatinine 1.50 H, Estim Creat Clear Calc 80.71, Est GFR (MDRD) Non-Af 51 L, BUN/Creatinine Ratio 8.4 L, Glucose 157 H, Calcium 10.2, Troponin T High Sens 36 H D 12/08/24 23:32: Troponin T Hi Sens 2 Hr 34 H, Procalcitonin 0.15 H 12/09/24 05:32: WBC 12.3 H, RBC 5.64, Hgb 16.7 H, Hct 49.6, MCV 87.9, MCH 29.6, MCHC 33.7, RDW Std Deviation 49.1 H, RDW Coeff of Penelope 15.4 H, Plt Count 214, MPV9.1, Immature Gran % (Auto) 0.500, Neut% (Auto) 75.7 H, Lymph % (Auto) 16.7 L, Mclennan % (Auto) 6.4, Eos % (Auto) 0.2, Baso % (Auto) 0.5, Absolute Neuts (auto) 9.3 H, Absolute Lymphs (auto) 2.05, Nucleated RBC % 0, Sodium 136, Potassium 4.4,Chloride 105, Carbon Dioxide 18.1 L, Anion Gap 13, BUN 18, Creatinine 1.77 H, Estim Creat Clear Calc 67.43, Est GFR (MDRD) Non-Af 42 L, BUN/Creatinine Ratio 10.0, Glucose 157 H, Calcium 9.2, Phosphorus 2.6 L, Magnesium 2.1, Total Bilirubin 0.71, AST 37, ALT 60 H, Alkaline Phosphatase 77, Total Protein 7.3, Albumin 4.1, Globulin 3.1, Albumin/Globulin Ratio 1.3, TSH 3.020 12/09/24 09:06: Urine Color Yellow, Urine Clarity Sl. Cloudy, Urine pH 5.0, Ur Specific [place] 1.025, Urine Protein 100 H, Urine Glucose (UA) 50 H, Urine Ketones 5 H, Urine Occult Blood 25 H, Urine Nitrite Negative, Urine Bilirubin 3 H, Urine Urobilinogen 1 H, Ur Leukocyte Esterase 25 H, Urine RBC0-5 SEEN, UrineWBC 5-10 SEEN, Ur Squamous Epith Cells 0-5 SEEN, Amorphous Sediment 1+, Urine Bacteria 0 SEEN, Hyaline Casts 0-5 SEEN, Fine Granular Casts 5-10 SEEN, Urine Mucus 0 SEEN Micro: Microbiology 12/09/24 07:30 Sputum, Expectorated/Coughed Gram Stain - Final 12/09/24 07:30 Sputum, Expectorated/Coughed Respiratory Culture - Final 12/09/24 03:35 Mucosa - Nasopharyngeal Respiratory Panel (PCR) - Final 12/09/24 02:59 Nasal Secretion SARS-CoV-2 Antigen (Rapid) - Final ABG Data ABG results: ABG 12/09/24 00:38 Specimen Type ART Sample Site R Brach pH 7.35 Bicarbonate Actual 24.1 Total CO2 25 Base Excess -2 O2 Saturation 93 L O2 % 21.0 ABG pCO2 43.5 ABG pO2 71 L Oscar Test Positive O2 Delivery Device BiPAP Vent Mode Not entered Clinical Comments Home unit: 17/5 21% Radiography Diagnostic Testing: Radiology Impression Chest X-Ray 12/08/24 21:48 IMPRESSION: 1. Right lower lobe opacity, which may represent atelectasis or pneumonitis/pneumonia. 2. Mild cardiomegaly. Reading Location: [id number] Chest CT 12/08/24 23:54 IMPRESSION: Coronary artery calcification (CAC) is is present Subsegmental atelectasis/consolidation in the lingula. Please evaluate to exclude superimposed pneumonia. Reading Location: [id number] Echocardiogram 12/09/24 08:15 Interpretation Summary Poor windows due to body habitus The LV ejection fraction is 55 %. Poorly visualized mitral valve No mitral valve insufficiency. Poorly visualized tricuspid valve Poorly visualized right ventricle Ordering Physician: Mis Edmondson Referring Physician: Jose David Sims MD Performed By: Erin Weinstein RDCS Physical Exam Const alert, oriented x3 and no apparent distress Constitutional Narrative: class III obesity General Appearance: cooperative HEENT normocephalic, head/scalp atraumatic, moist oral mucous membranes and oropharynxnormal Eyes PERRL and EOMs intact bilaterally Neck supple Lymph Lymphatic: no lymphedema noted Resp Resp Narrative: Mildly diminished breath sounds bibasilarly. No wheezes or crackles. On room air. Cardio regular rhythm, S1 normal heart sound, S2 normal heart sound and no murmurs GI normal to inspection, nondistended, normoactive bowel sounds, soft to palpation,non-tender and non-distended GI Narrative: obese abdomen Extremity normal capillary refill, no clubbing, cyanosis or edema and no calf tenderness General Extremity: no tenderness to palpation of joints or extremities Skin General Skin Exam: no breakdown Neuro no focal motor deficits and no sensory deficits noted Motor Exam: strength 5/5 throughout Psych cooperative Mood & Affect: anxious Assessment & Plan Assessment/Plan (1) Acute respiratory failure with hypoxia: PLAN: Plan #Hypoxia due to community-acquired pneumonia and COPD exacerbation * Patient shortness of breath is improved. He was on BiPAP yesterday but is now on oxygen by nasal cannula. Chest x-ray showed evidence of consolidation in the lingula and his WBC was elevated. * Respiratory panel negative. On IV Solu-Medrol 40 mg every 8. On ceftriaxone and azithromycin. Breathing treatments bronchodilators. Titrate oxygen to maintain saturation above 90%. Respiratory panel was negative. * WBC was 21.3 on admission and is now down to 12.3. * Procalcitonin was elevated at 0.15. * #TAINA: * Creatinine was 1.5 on admission and is now up to 1.77. Hydrate gently with IV fluids and if creatinine does not trend downwards we will do further workup. #Elevated troponin * thought to be likely due to hypoxia. * Initial troponin was 20 and trended up to a peak of 36. 2D echo ordered. * EKG showed no acute ST changes. BNP was only 310. * 2D echo showed EF of 55% with poorly visualized valves due to body habitus. #A-fib with RVR * Patient was diagnosed with A-fib with RVR about a year ago and placed on metoprolol. However he said that metoprolol made him gain weight so he stopped taking it. Was not put on any anticoagulation. * Currently on Lovenox. Placed on Cardizem p.o. Cardiology consulted. TSH normal. #Chronic nicotine dependence * Smokes about 4 packs a day. Counseled to quit. Nicotine patch 21 mg daily. * #History of PTSD * Has a history of severe PTSD. On Ativan as needed. * #Class III obesity: BMI is 48.5. (Acutely, expected recovery prognosis. DVT prophylaxis: Already on Eliquis Time spent on patient today: 32 minutes. Charges/Coding Visit Charges Inpatient E&M: 08151 PROLNG IP/OBS E/M EA 15 MIN 12/09/24 0777 Mis Edmondson MD Cosigner Signature (if applicable): CC: ~ Signed [facility]06-14-2025 History and physical note Author Odilia Burgos [facility] Note Date/Time December 09, 2024 4:05 am [facility] Medical Records Department [address] [place] [address] H&P Exam - Hospitalist 12/09/24 0058 MR#: [id number] Acct: [id number] Name: MARCEL TURCIOS Rep #:[id number] : 1960 64 From: Odilia Burgos DO PCP: Dr. Jose David Sims MD Status:ADM IN [facility] - General General Date of Admission: 12/09/24 Date of Service: 12/09/24 Chief Complaint: Shortness of breath HPI Narrative MARCEL TURCIOS, is a 64 M who presented to the emergency department at [facility] on 12/08/2024 with a chief complaint of shortness of breath. Patient was here earlier on 12/08/2024 and due to his PTSD signed out AGAINST MEDICAL ADVICE. He came back due to worsening shortness of breath. He has known history of atrial fibrillation and was diagnosed about a year ago. He states he was discharged on metoprolol and it made him gain a lot of weight so he stopped taking it. He is also no longer anticoagulated so essentially is untreated. He was found to be in A-fib with RVR on his initial presentation on the . Initially he presented with worsening shortness of breath and palpitations. He indicated that it been going on for about a year. I suspect that is all related to his A-fib diagnosis. Patient did have orthopnea and wheezing but no PND. He still smokes about 4 packs of cigarettes daily. He denies any cough, fever, or chills. He said no chest pain. He has not had no nausea or vomiting or diaphoresis. He was initially admitted to PCU and was treated for acute exacerbation of COPD and A-fib with RVR however he left. He came back after family convinced him to come back and be evaluated and treated. Vital signs on presentation of his second visit to the emergency department on the showed a temperature of 98.3, heart rate 125, respiratory was 38 with short labored breathing and utilization of accessory muscles was present and he is in intermittent gasping. Blood pressure was 164/117 and pulse ox was 97% on room air. He was placed on his home BiPAP. This did appear to make him more comfortable. CBC on presentation showed a leukocytosis with white count of 20.3. His hemoglobin is elevated 18.4. We obtained an ABG which showed a pH of7.35 a pCO2 of 43.5 and a pO2 of 71 on his home BiPAP at 21% with an estimated sats of 93%. Chemistry panel showed new anion gap metabolic acidosis and TAINA. Serum creatinine was 1.5 and when he presented earlier on the it was 1.01. Initial troponin was 36 with a delta of 34. Procalcitonin was obtained and found to be 0.15. EKG shows A-fib with RVR. Chest x-ray was suggestive of a right lower lobe opacity and mild cardiomegaly. A CT of the chest showed subsegmental atelectasis or consolidation of the lingula. He will be admitted to PCU and we will put him on oral Cardizem with hold parameters for his heart rate and start Eliquis. Given his white count, possible infiltrate on CT, and respiratory distress I will put him on Zosyn. [facility] Medical History PTSD (post-traumatic stress disorder) Foraminal stenosis of lumbosacral region ZAN (obstructive sleep apnea) Back pain Anxiety COPD (chronic obstructive pulmonary disease) Radiculitis of leg Lumbar canal stenosis Foraminal stenosis of lumbosacral region Back pain Anxiety COPD (chronic obstructive pulmonary disease) Obstructive sleep apnea Home Medications ?Medication ?Instructions ?Recorded ?Last Taken ?Type albuterol sulfate 1.25 mg/3 mL 1.25 mg inhalation Q4H PRN PRN 12/08/24 Unknown History solution for nebulization dyspnea budesonide-formoterol HFA 160 2 inh inhalation Q12H Unknown History mcg-4.5 mcg/actuation aerosol inhaler (Breyna) magnesium oxide 400 mg (241.3 mg 400 mg PO BID 5 Unknown History magnesium) tablet Allergy/AdvReac Type Severity Reaction Status Date / Time codeine Allergy Hives Verified 12/08/24 21:09 Iodinated Contrast Media Allergy Hives Verified 12/08/24 21:09 (Iodinated Contrast Media - IV Dye) diclofenac AdvReac Swelling Verified 12/08/24 21:09 metaxalone AdvReac Swelling Verified 12/08/24 21:09 methylphenidate (From AdvReac hallucinati Verified 12/08/24 21:09 Ritalin) ons Phenylpiperazine AdvReac Other Verified 12/08/24 21:09 Antidepressant Tetracyclic Antidepressants AdvReac Other Verified 12/08/24 21:09 Tricyclic Antidepressants AdvReac Other Verified 12/08/24 21:09 and Tricy Family History Other Diabetes Hypertension Surgical History S/P epidural steroid injection Social History household members: family Smoking Status: Current every day smoker tobacco type: cigarettes and e- cigarettes alcohol intake: never substance use type: does not use ROS Constitutional Constitutional: Denies anorexia, change in weight, chills, fatigue, fever(s), malaise, night sweats, weakness or other Eyes Eyes: Denies blurry vision, change in eye color, change in vision, discharge from eye(s), double vision, erythema, eye pain, loss of vision or other ENT HEENT: Denies abnormal hearing, dysphagia, ear pain, epistaxis, headache(s), hearing loss, nasal congestion, nasal discharge, post nasal drip, sinus pressure, sore throat or other Cardiovascular Cardiovascular: Reports rapid heart rate; Denies chest pain, claudication, dyspnea on exertion, edema, lightheadedness, orthopnea, palpitations, paroxysmalnocturnal dyspnea, syncope or other Respiratory/Chest Respiratory/Chest: Reports dyspnea, shortness of breath at rest and wheezing; Denies cough, excessive phlegm production, hemoptysis, productive cough, shortness of breath with exertion or other Gastrointestinal Gastrointestinal: Denies abdominal pain, coffee ground emesis, constipation, diarrhea, dyspepsia, hematemesis, hematochezia, loose stools, melena, nausea, vomiting or other Genitourinary Genitourinary: Denies burning urination, difficulty urinating, dysuria, hematuria, nocturia, urinary frequency, urinary hesitancy, urinary incontinence,urinary urgency or other Musculoskeletal Musculoskeletal: Reports back pain Neurologic Neurologic: Denies abnormal gait, abnormal speech, confusion, disequilibrium, dizziness, focal weakness, headache(s), numbness, paresthesias, seizure-like activity, seizures, syncope, tingling, tremor(s) or other Psychiatric Psychiatric: Reports anxiety, depression and other Details: Severe PTSD Endocrine Endocrinology: Denies change in body appearance, cold intolerance, excessive sweating, heat intolerance, polydipsia, polyuria or other Hematologic/Lymphatic Hematologic/Lymphatic: Denies anemia, easy bleeding, easy bruising, lymphadenopathy or other Allergic/Immunologic Allergic/Immunologic: Denies rhinitis, hives, eczemia, asthma or other Vital Signs Vital Signs Vital Signs: 12/08/24 21:08 12/08/24 21:14 12/08/24 21:14 Temperature 98.3 F 98.3 F Temperature Source Temporal Oral Pulse Rate 125 H 180 H Respiratory Rate 38 H 34 H Respiratory Effort Short of Breath Labored Accessory Muscle Use Respiratory Depth Respiratory Pattern Gasping Blood Pressure 164/117 H 183/162 H Blood Pressure Mean 132 169 Pulse Ox 97 98 Oxygen Delivery Method Room Air Bi-pap Fraction of Inspired Oxygen (FIO2) 14 12/08/24 21:14 12/08/24 21:32 12/08/24 22:00 Temperature 98.8 F Temperature Source Oral Pulse Rate 114 H Respiratory Rate 24 H Respiratory Effort Short of Breath Labored Accessory Muscle Use Nasal Flaring Respiratory Depth Shallow Respiratory Pattern Tachypnea Blood Pressure 110/68 Blood Pressure Mean 82 Pulse Ox 95 92 Oxygen Delivery Method Bi-pap Bi-pap Bi-pap Fraction of Inspired Oxygen (FIO2) 14 14 14 12/08/24 23:00 12/08/24 23:50 12/08/24 23:51 Temperature 98.7 F 97.8 F 97.8 F Temperature Source Oral Pulse Rate 100 83 Respiratory Rate 20 H 24 H Respiratory Effort Normal Non-Labored Respiratory Depth Normal Respiratory Pattern Normal Blood Pressure 102/69 104/63 Blood Pressure Mean 80 76 Pulse Ox 90 98 93 Oxygen Delivery Method Bi-pap Airvo Fraction of Inspired Oxygen (FIO2) 14 12/09/24 00:00 Temperature 97.8 F Temperature Source Oral Pulse Rate 85 Respiratory Rate 18 Respiratory Effort Respiratory Depth Respiratory Pattern Blood Pressure 117/77 Blood Pressure Mean 90 Pulse Ox 93 Oxygen Delivery Method Bi-pap Fraction of Inspired Oxygen (FIO2) 14 Weight Weight: 170.7 kg Body Mass Index (BMI) 49.6 Physical Exam Const alert, oriented x3, no apparent distress and well nourished; Negative for average body habitus or healthy appearing Constitutional Narrative: Morbidly obese, upper middle-aged, white male, lying in bed in left side-lying on BiPAP, appears comfortable, nontoxic, interacts appropriately General Appearance: cooperative HEENT normocephalic, head/scalp atraumatic and moist oral mucous membranes HEENT Narrative: Mallampati 4, no thrush, patient currently on nasal CPAP, mild hearing loss Neck supple Neck Narrative: Trachea midline Resp no retractions, no use of accessory muscles and No clear to auscultation bilaterally Resp Narrative: Scattered wheezes with mild tachypnea, diffusely diminished Auscultation: wheezes; Negative for crackles or rhonchi Cardio S1 normal heart sound, S2 normal heart sound, no murmurs, no rub, no gallops andno clicks Cardio Narrative: Mild tachycardia with irregularly irregular rhythm, heart sounds are distant dueto body habitus GI normal to inspection, nondistended, normoactive bowel sounds, soft to palpation and non-tender GI Narrative: Large protuberant abdomen Extremity no clubbing, cyanosis or edema Skin Skin Narrative: Multiple tattoos but no specific lesions noted Neuro oriented x3, moves all extremities and no focal motor deficits Speech: speech normal Psych Psych Narrative: Affect is slightly flattened patient appears mildly anxious Results Lab / Micro Data 12/08/24 21:20 12/08/24 21:20 Labs: Laboratory Results - last 24 hr 12/08/24 21:20: WBC 20.3 H, RBC 6.14, Hgb 18.4 H*, Hct 53.8, MCV 87.6, MCH 30.0,MCHC 34.2, RDW Std Deviation 48.6 H, RDW Coeff of Penelope 15.8 H, Plt Count 267, MPV9.0, Immature Gran % (Auto) 0.600, Neut % (Auto) 72.1 H, Lymph % (Auto) 17.5 L, Mclennan % (Auto) 8.6, Eos % (Auto) 0.4, Baso % (Auto) 0.8, Absolute Neuts (auto) 14.6 H, Absolute Lymphs (auto) 3.55, Nucleated RBC % 0, Differential Comment SCANNED, Sodium 139, Potassium 4.1, Chloride 102, Carbon Dioxide 17.3 L, Anion Gap 20 H, BUN 13, Creatinine 1.50 H, Estim Creat Clear Calc 80.71, Est GFR (MDRD) Non-Af 51 L, BUN/Creatinine Ratio 8.4 L, Glucose 157 H, Calcium 10.2, Troponin T High Sens 36 H D 12/08/24 23:32: Troponin T Hi Sens 2 Hr 34 H, Procalcitonin 0.15 H ABG Data ABG results: ABG 12/09/24 00:38 Specimen Type ART Sample Site R Brach pH 7.35 Bicarbonate Actual 24.1 Total CO2 25 Base Excess -2 O2 Saturation 93 L O2 % 21.0 ABG pCO2 43.5 ABG pO2 71 L Oscar Test Positive O2 Delivery Device BiPAP Vent Mode Not entered Clinical Comments Home unit: 11/11 21% Imaging Radiology Impression Chest X-Ray 12/08/24 21:48 IMPRESSION: 1. Right lower lobe opacity, which may represent atelectasis or pneumonitis/pneumonia. 2. Mild cardiomegaly. Reading Location: [facility] Assessment & Plan Assessment/Plan (1) Pneumonia: (2) COPD exacerbation: (3) Hypoxia: (4) Atrial fibrillation with rapid ventricular response: (5) Erythrocytosis: (6) High anion gap metabolic acidosis: (7) TAINA (acute kidney injury): (8) Elevated troponin: PLAN: Plan Acute hypoxia and shortness of breath secondary to COPD exacerbation/+-Community-acquired pneumonia - Imaging does show consolidation in the lingula and white count is elevated - Will try to obtain sputum culture - COVID is negative - Check respiratory viral panel - Supplemental oxygen as needed was on BiPAP at the time of admission - Will cover with Zosyn for now as he is high risk for COPD - Mucinex 1200 p.o. twice daily - Solu-Medrol 40 every 8 - Scheduled and as needed nebulizers - I-S - Acapella - Will need ambulatory pulse ox prior to discharge - Continue nocturnal BiPAP at 17/5 TAINA - Will give 2 L IV fluids and then reassess in a.m. - Avoid nephrotoxins Elevated troponin - Mild elevation and etiology is suspected to be respiratory distress - Cycle cardiac enzymes - Patient without chest pain - Echocardiogram is pending Anion gap metabolic acidosis - Etiology is unclear - May have component of starvation ketosis as patient has not eaten - Hydration and repeat lab in a.m. A-fib with RVR - Was diagnosed a year ago and placed on metoprolol. - Patient states metoprolol made him gain weight so he stopped taking it - Also was not anticoagulated - Was given Lovenox earlier today so we will start Eliquis tomorrow 5 mg p.o. twice daily - Start Cardizem 30 every 8 with metoprolol intolerance previously - Check TSH - Cardiology consult as previously requested Erythrocytosis - Suspect ongoing issue related to his tobacco abuse - Possible chronic hypoxia either at rest or with exertion or both - Will need ambulatory pulse ox prior to discharge - Recommend outpatient follow-up COPD - Hold home inhalers - Treatment as above PTSD - Patient with severe PTSD which is why he left AMA earlier - Family was fortunately able to talk to him in the coming back for treatment - Will give as needed Ativan every 8 hours - Recommend outpatient follow-up with psychiatry for assistance in management Morbid obesity - BMI is 48.5 - Recommend weight loss - Complicates treatment, prognosis, outcomes Tobacco abuse - patient smokes 4 packs daily - Nicotine patch available - Recommend cessation DVT prophylaxis - Patient is currently on apixaban so fully anticoagulated CODE STATUS - DNR CCA with no intubation Charges/Coding Visit Charges Inpatient E&M: 85931 Init Hosp L3 12/09/24 040 <Electronically signed by Odilia Burgos DO> Cosigner Signature (if applicable): CC: Dr. Jose David Sims MD; Dr. Odilia Burgos DO~ Signed [facility] Work Phone: [phone] 393-340406-14-2025 History and physical note [facility] Medical Records Department [address] [place] [address] H&P Exam - Hospitalist 12/09/24 0058 MR#: [id number] Acct: [id number] Name: MARCEL TURCIOS Rep #:[id number] : 1960 64 From: Odilia Burgos DO PCP: Dr. Jose David Sims MD Status:ADM IN Location: [place] [address] HPI - General General Date of Admission: 12/09/24 Date of Service: 12/09/24 Chief Complaint: Shortness of breath HPI Narrative MARCEL TURCIOS, is a 64 M who presented to the emergency department at [facility] on12/08/2024 with a chief complaint of shortness of breath. Patient was here earlier on 12/08/2024 and due to his PTSD signed out AGAINST MEDICAL ADVICE. He came back due to worsening shortness of breath. He has known history of atrial fibrillation and was diagnosed about a year ago. He states he was discharged on metoprolol and it made him gain a lot of weight so he stopped taking it. He is also no longer anticoagulated so essentially is untreated. He was found to be in A-fib with RVR on his initial presentation on the . Initially he presented with worsening shortness of breath and palpitations. He indicated that it been going on for about a year. I suspect that is all related to his A-fibdiagnosis. Patient did have orthopnea and wheezing but no PND. He still smokes about 4 packs of cigarettes daily. He denies any cough, fever, or chills. He said no chest pain. He has not had no nausea or vomiting or diaphoresis. He was initially admitted to PCU and was treated for acute exacerbation of COPD and A-fib with RVR however he left. He came back after family convinced him to come back and be evaluated and treated. Vital signs on presentation of his second visit to the emergency department on the showed a temperature of 98.3, heart rate 125, respiratory was 38 with short labored breathing and utilization of accessory muscles was present and he is in intermittent gasping. Blood pressure was 164/117 and pulse ox was 97% on room air. He was placed on his home BiPAP. This did appear to make him more comfortable. CBC on presentation showed a leukocytosis with white count of 20.3. His hemoglobin is elevated 18.4. We obtained an ABG which showed a pH of7.35 a pCO2 of 43.5 and a pO2 of 71 on his home BiPAPat 21% with an estimated sats of 93%. Chemistry panel showed new anion gap metabolic acidosis and TAINA. Serum creatinine was 1.5 and when he presented earlier on the it was 1.01. Initial troponinwas 36 with a delta of 34. Procalcitonin was obtained and found to be 0.15. EKG shows A-fib with RVR. Chest x-ray was suggestive of a right lower lobe opacity and mild cardiomegaly. A CT of the chestshowed subsegmental atelectasis or consolidation of the lingula. He will be admitted to PCU and we will put him on oral Cardizem with hold parameters for his heart rate and start Eliquis. Given his white count, possible infiltrate on CT, and respiratory distress Iwill put him on Zosyn. [facility] Medical History PTSD (post-traumatic stress disorder) Foraminal stenosis of lumbosacral region ZAN (obstructive sleep apnea) Back pain Anxiety COPD (chronic obstructive pulmonary disease) Radiculitis of leg Lumbar canal stenosis Foraminal stenosis of lumbosacral region Back pain Anxiety COPD (chronic obstructive pulmonary disease) Obstructive sleep apnea Home Medications ?Medication ?Instructions ?Recorded ?Last Taken ?Type albuterol sulfate 1.25 mg/3 mL 1.25 mg inhalation Q4H PRN PRN 12/08/24 Unknown History solution for nebulization dyspnea budesonide-formoterol HFA 160 2 inh inhalation Q12H Unknown History mcg-4.5 mcg/actuation aerosol inhaler (Breyna) magnesium oxide 400 mg (241.3 mg 400 mg PO BID 5 Unknown History magnesium) tablet Allergy/AdvReac Type Severity Reaction Status Date / Time codeine Allergy Hives Verified 12/08/24 21:09 Iodinated Contrast Media Allergy Hives Verified 12/08/24 21:09 (Iodinated Contrast Media - IV Dye) diclofenac AdvReac Swelling Verified 12/08/24 21:09 metaxalone AdvReac Swelling Verified 12/08/24 21:09 methylphenidate (From AdvReac hallucinati Verified 12/08/24 21:09 Ritalin) ons Phenylpiperazine AdvReac Other Verified 12/08/24 21:09 Antidepressant Tetracyclic Antidepressants AdvReac Other Verified 12/08/24 21:09 Tricyclic Antidepressants AdvReac Other Verified 12/08/24 21:09 and Tricy Family History Other Diabetes Hypertension Surgical History S/P epidural steroid injection Social History household members: family Smoking Status: Current every day smoker tobacco type: cigarettes and e-cigarettes alcohol intake: never substance use type: does not use ROS Constitutional Constitutional: Denies anorexia, change in weight, chills, fatigue, fever(s), malaise, night sweats, weakness or other Eyes Eyes: Denies blurry vision, change in eye color, change in vision, discharge from eye(s), double vision, erythema, eye pain, loss of vision or other ENT HEENT: Denies abnormal hearing, dysphagia, ear pain, epistaxis, headache(s), hearing loss, nasal congestion, nasal discharge, post nasal drip, sinus pressure, sore throat or other Cardiovascular Cardiovascular: Reports rapid heart rate; Denies chest pain, claudication, dyspnea on exertion, edema, lightheadedness, orthopnea, palpitations, paroxysmalnocturnal dyspnea, syncope or other Respiratory/Chest Respiratory/Chest: Reports dyspnea, shortness of breath at rest and wheezing; Denies cough, excessive phlegm production, hemoptysis, productive cough, shortness of breath with exertion or other Gastrointestinal Gastrointestinal: Denies abdominal pain, coffee ground emesis, constipation, diarrhea, dyspepsia, hematemesis, hematochezia, loose stools, melena, nausea, vomiting or other Genitourinary Genitourinary: Denies burning urination, difficulty urinating, dysuria, hematuria, nocturia, urinary frequency, urinary hesitancy, urinary incontinence,urinary urgency or other Musculoskeletal Musculoskeletal: Reports back pain Neurologic Neurologic: Denies abnormal gait, abnormal speech, confusion, disequilibrium, dizziness, focal weakness, headache(s), numbness, paresthesias, seizure-like activity, seizures, syncope, tingling, tremor(s) or other Psychiatric Psychiatric: Reports anxiety, depression and other Details: Severe PTSD Endocrine Endocrinology: Denies change in body appearance, cold intolerance, excessive sweating, heat intolerance, polydipsia, polyuria or other Hematologic/Lymphatic Hematologic/Lymphatic: Denies anemia, easy bleeding, easy bruising, lymphadenopathy or other Allergic/Immunologic Allergic/Immunologic: Denies rhinitis, hives, eczemia, asthma or other Vital Signs Vital Signs Vital Signs: 12/08/24 21:08 12/08/24 21:14 12/08/24 21:14 Temperature 98.3 F 98.3 F Temperature Source Temporal Oral Pulse Rate 125 H 180 H Respiratory Rate 38 H 34 H Respiratory Effort Short of Breath Labored Accessory Muscle Use Respiratory Depth Respiratory Pattern Gasping Blood Pressure 164/117 H 183/162 H Blood Pressure Mean 132 169 Pulse Ox 97 98 Oxygen Delivery Method Room Air Bi-pap Fraction of Inspired Oxygen (FIO2) 14 12/08/24 21:14 12/08/24 21:32 12/08/24 22:00 Temperature 98.8 F Temperature Source Oral Pulse Rate 114 H Respiratory Rate 24 H Respiratory Effort Short of Breath Labored Accessory Muscle Use Nasal Flaring Respiratory Depth Shallow Respiratory Pattern Tachypnea Blood Pressure 110/68 Blood Pressure Mean 82 Pulse Ox 95 92 Oxygen Delivery Method Bi-pap Bi-pap Bi-pap Fraction of Inspired Oxygen (FIO2) 14 14 14 12/08/24 23:00 12/08/24 23:50 12/08/24 23:51 Temperature 98.7 F 97.8 F 97.8 F Temperature Source Oral Pulse Rate 100 83 Respiratory Rate 20 H 24 H Respiratory Effort Normal Non-Labored Respiratory Depth Normal Respiratory Pattern Normal Blood Pressure 102/69 104/63 Blood Pressure Mean 80 76 Pulse Ox 90 98 93 Oxygen Delivery Method Bi-pap Airvo Fraction of Inspired Oxygen (FIO2) 14 12/09/24 00:00 Temperature 97.8 F Temperature Source Oral Pulse Rate 85 Respiratory Rate 18 Respiratory Effort Respiratory Depth Respiratory Pattern Blood Pressure 117/77 Blood Pressure Mean 90 Pulse Ox 93 Oxygen Delivery Method Bi-pap Fraction of Inspired Oxygen (FIO2) 14 Weight Weight: 170.7 kg Body Mass Index (BMI) 49.6 Physical Exam Const alert, oriented x3, no apparent distress and well nourished; Negative for average body habitus or healthy appearing Constitutional Narrative: Morbidly obese, upper middle-aged, white male, lying in bed in left side-lying on BiPAP, appears comfortable, nontoxic, interacts appropriately General Appearance: cooperative HEENT normocephalic, head/scalp atraumatic and moist oral mucous membranes HEENT Narrative: Mallampati 4, no thrush, patient currently on nasal CPAP, mild hearing loss Neck supple Neck Narrative: Trachea midline Resp no retractions, no use of accessory muscles and No clear to auscultation bilaterally Resp Narrative: Scattered wheezes with mild tachypnea, diffusely diminished Auscultation: wheezes; Negative for crackles or rhonchi Cardio S1 normal heart sound, S2 normal heart sound, no murmurs, no rub, no gallops andno clicks Cardio Narrative: Mild tachycardia with irregularly irregular rhythm, heart sounds are distant dueto body habitus GI normal to inspection, nondistended, normoactive bowel sounds, soft to palpation and non-tender GI Narrative: Large protuberant abdomen Extremity no clubbing, cyanosis or edema Skin Skin Narrative: Multiple tattoos but no specific lesions noted Neuro oriented x3, moves all extremities and no focal motor deficits Speech: speech normal Psych Psych Narrative: Affect is slightly flattened patient appears mildly anxious Results Lab / Micro Data 12/08/24 21:20 12/08/24 21:20 Labs: Laboratory Results - last 24 hr 12/08/24 21:20: WBC 20.3 H, RBC 6.14, Hgb 18.4 H*, Hct 53.8, MCV 87.6, MCH 30.0,MCHC 34.2, RDW Std Deviation 48.6 H, RDW Coeff of Penelope 15.8 H, Plt Count 267, MPV9.0, Immature Gran % (Auto) 0.600, Neut% (Auto) 72.1 H, Lymph % (Auto) 17.5 L, Mclennan % (Auto) 8.6, Eos % (Auto) 0.4, Baso % (Auto) 0.8, Absolute Neuts (auto) 14.6 H, Absolute Lymphs (auto) 3.55, Nucleated RBC % 0, Differential Comment SCANNED, Sodium 139, Potassium 4.1, Chloride 102, Carbon Dioxide 17.3 L, Anion Gap 20 H, BUN 13, Creatinine 1.50 H, Estim Creat Clear Calc 80.71, Est GFR (MDRD) Non-Af 51 L, BUN/Creatinine Ratio 8.4 L, Glucose 157 H, Calcium 10.2, Troponin T High Sens 36 H D 12/08/24 23:32: Troponin T Hi Sens 2 Hr 34 H, Procalcitonin 0.15 H ABG Data ABG results: ABG 12/09/24 00:38 Specimen Type ART Sample Site R Brach pH 7.35 Bicarbonate Actual 24.1 Total CO2 25 Base Excess -2 O2 Saturation 93 L O2 % 21.0 ABG pCO2 43.5 ABG pO2 71 L Oscar Test Positive O2 Delivery Device BiPAP Vent Mode Not entered Clinical Comments Home unit: 17 21% Imaging Radiology Impression Chest X-Ray 12/08/24 21:48 IMPRESSION: 1. Right lower lobe opacity, which may represent atelectasis or pneumonitis/pneumonia. 2. Mild cardiomegaly. Reading Location: [facility] Assessment & Plan Assessment/Plan (1) Pneumonia: (2) COPD exacerbation: (3) Hypoxia: (4) Atrial fibrillation with rapid ventricular response: (5) Erythrocytosis: (6) High anion gap metabolic acidosis: (7) TAINA (acute kidney injury): (8) Elevated troponin: PLAN: Plan Acute hypoxia and shortness of breath secondary to COPD exacerbation/+-Community-acquired pneumonia - Imaging does show consolidation in the lingula and white count is elevated - Will try to obtain sputum culture - COVID is negative - Check respiratory viral panel - Supplemental oxygen as needed was on BiPAP at the time of admission - Will cover with Zosyn for now as he is high risk for COPD - Mucinex 1200 p.o. twice daily - Solu-Medrol 40 every 8 - Scheduled and as needed nebulizers - I-S - Acapella - Will need ambulatory pulse ox prior to discharge - Continue nocturnal BiPAP at 17/5 TAINA - Will give 2 L IV fluids and then reassess in a.m. - Avoid nephrotoxins Elevated troponin - Mild elevation and etiology is suspected to be respiratory distress - Cycle cardiac enzymes - Patient without chest pain - Echocardiogram is pending Anion gap metabolic acidosis - Etiology is unclear - May have component of starvation ketosis as patient has not eaten - Hydration and repeat lab in a.m. A-fib with RVR - Was diagnosed a year ago and placed on metoprolol. - Patient states metoprolol made him gain weight so he stopped taking it - Also was not anticoagulated - Was given Lovenox earlier today so we will start Eliquis tomorrow 5 mg p.o. twice daily - Start Cardizem 30 every 8 with metoprolol intolerance previously - Check TSH - Cardiology consult as previously requested Erythrocytosis - Suspect ongoing issue related to his tobacco abuse - Possible chronic hypoxia either at rest or with exertion or both - Will need ambulatory pulse ox prior to discharge - Recommend outpatient follow-up COPD - Hold home inhalers - Treatment as above PTSD - Patient with severe PTSD which is why he left AMA earlier - Family was fortunately able to talk to him in the coming back for treatment - Will give as needed Ativan every 8 hours - Recommend outpatient follow-up with psychiatry for assistance in management Morbid obesity - BMI is 48.5 - Recommend weight loss - Complicates treatment, prognosis, outcomes Tobacco abuse - patient smokes 4 packs daily - Nicotine patch available - Recommend cessation DVT prophylaxis - Patient is currently on apixaban so fully anticoagulated CODE STATUS - DNR CCA with no intubation Charges/Coding Visit Charges Inpatient E&M: 84002 Init Hosp L3 12/09/24 0405 Cosigner Signature (if applicable): CC: Dr. Jose David Sims MD; Dr. Odilia Burgos DO~ Signed [facility]06-14-2025 Radiology Diagnostic study note [facility] Imaging Services [address] [place], [place] [address] Chest without Contrast MR#: [id number] Acct: [id number] Name: MARCEL TURCIOS Rep #: [id number] : 1960 M 64 From: Tristin Song MD PCP: Dr. Jose David Sims MD Status: REG ER Study:Chest without Contrast Date of Exam: 12/08/24 Exam# [id number] Ordering Dr: Brooke Burgos DO PROCEDURE: CHEST WITHOUT CONTRAST 12/09/2024 REASON FOR EXAM: INFILTRATE TECHNIQUE: Chest CT without contrast. Coronal and Sagittal reconstruction series were provided. One or more dose reduction techniques were used (e.g., Automated exposure control, adjustment of the mA and/or kV according to patient size, use of iterative reconstruction technique RADIATION DOSE SUMMARY: CTDlvol: 20.15 mGy DLP: 805 mGycm COMPARISON: Chest radiograph on 12/08/2024. FINDINGS: Subsegmental atelectasis/consolidation in the lingula. Please evaluate to exclude superimposed pneumonia. Normal unenhanced main pulmonary artery and right and left pulmonary arteries. Normal bilateral peripheral pulmonary arteries. Normal thoracic aorta and visualized great vessels. There is no demonstrated aortic aneurysm. Normal heart and pericardium. Normal mediastinum. Normal hilar regions. Normal visualized trachea and bronchi. Normal pleura. Hepatomegaly with hepatic steatosis. CT/Chest without Contrast IMPRESSION: Coronary artery calcification (CAC) is is present Subsegmental atelectasis/consolidation in the lingula. Please evaluate to exclude superimposed pneumonia. Reading Location: [place] [address] CC: Dr. Jose David Sims MD; Dr. Odilia Burgos DO ~ Mill Set Up: Signed [facility]06-13-2025 Radiology Diagnostic study note [facility] Imaging Services [address] [place] [address] Chest PA and Lateral MR#: [id number] Acct: [id number] Name: MARCEL TURCIOS Rep #: [id number] : 1960 M 64 From: Ynes Sanders MD PCP: Dr. Jose David Sims MD Status: REG ER Study:Chest PA and Lateral Date of Exam: 12/08/24 Exam# [id number] Ordering Dr: Martha Sawant PROCEDURE: CHEST PA AND LATERAL 12/08/2024 REASON FOR EXAM: CHEST PAIN TECHNIQUE: CHEST PA AND LATERAL COMPARISON: Chest radiograph earlier same day. FINDINGS: Visualization is limited by body habitus. Hardware: None. Heart: Heart size is mildly enlarged with pulmonary vascular congestion. Mediastinum: The mediastinal contour is stable. Lungs: Right lower lobe opacity. No obvious pleural effusion or pneumothorax. Bones: The bones are unremarkable. RAD/Chest PA and Lateral IMPRESSION: 1. Right lower lobe opacity, which may represent atelectasis or pneumonitis/pneumonia. 2. Mild cardiomegaly. Reading Location: [id number] CC: Dr. Jose David Sims MD; YASMANY Helton ~ Mill Set Up: Signed [facility]06-13-2025 Evaluation note* Diagnosis Onset Date Resolution Status Admit Date Acute respiratory failure wi th hypoxia acute December 08, 2024 3:35pm COPD exacerbation chronic December 082024 3:35pm Acute respiratory failure wi th hypoxia acute December 09, 2024 12:58am Atrial fibrillation with rap id ventricular response acute December 09, 2024 12:58am Pneumonia acute December 09 12:58am [facility] Work Phone: 1(410) 649-627906-13-2025 Evaluation note* Diagnosis Onset Date Resolution Status Admit Date Acute respiratory failure wi th hypoxia acute December 08, 2024 3:35pm COPD exacerbation chronic December 082024 3:35pm Acute respiratory failure wi th hypoxia acute December 09, 2024 12:58am TAINA (acute kidney injury) acute December 09, 2024 12:58am Atrial fibrillation with rap id ventricular response acute December 09, 2024 12:58am Dyspnea acute December 09 12:58am Elevated troponin acute December 092024 12:58am Erythrocytosis acute December 09, 2024 12:58am High anion gap metabolic acidosis acute December 09, 2024 12:58am Hypoxia acute December 09 12:58am Pneumonia acute December 09 12:58am COPD exacerbation chronic December 092024 12:58am [facility] Work Phone: 1(413) 555-235806-13-2025 Evaluation note* Diagnosis Onset Date Resolution Status Admit Date Acute respiratory failure wi th hypoxia inactive December 08, 2024 3:35pm COPD exacerbation inactive December 082024 3:35pm Atrial fibrillation with rap id ventricular response acute December 09, 2024 12:58am Acute respiratory failure wi th hypoxia inactive December 09, 2024 12:58am TAINA (acute kidney injury) inactive December 09, 2024 12:58am COPD exacerbation inactive December 092024 12:58am Dyspnea inactive December 09 12:58am Elevated troponin inactive December 092024 12:58am Erythrocytosis inactive December 09, 2024 12:58am High anion gap metabolic acidosis inactive December 09, 2024 12:58am Hypoxia inactive December 09 12:58am Pneumonia inactive December 09 12:58am Atrial fibrillation with rap id ventricular response acute January 17, 2025 2:00pm [facility] Work Phone: 1([phone]) 983-147706-13-2025 Radiology Diagnostic study note [facility] Imaging Services [address] [place], [place] [address] Chest PA and Lateral MR#: [id number] Acct: [id number] Name: MARCEL TURCIOS Rep #: [id number] : 1960 M 64 From: Sweetie Metzger MD PCP: Dr. Jose David Sims MD Status: REG ER Study:Chest PA and Lateral Date of Exam: 12/08/24 Exam# [id number] Ordering Dr: Martha Sawant PROCEDURE: CHEST PA AND LATERAL 12/08/2024 REASON FOR EXAM: CHEST PAIN TECHNIQUE: CHEST PA AND LATERAL COMPARISON: 09/15/2023 FINDINGS: Right lower lobe opacity may reflect atelectasis, pneumonia, and/or aspiration. No pleural effusionor pneumothorax. Mild pulmonary vascular congestion. Cardiac silhouette is unchanged. No acute fractures. RAD/Chest PA and Lateral IMPRESSION: Right lower lobe opacity may reflect atelectasis, pneumonia, and/or aspiration. No pleural effusionor pneumothorax. Mild pulmonary vascular congestion. Reading Location: [id number] CC: Dr. Jose David Sims MD; YASMANY Helton ~ Mill Set Up: Signed [facility]03-21-2024 Progress note Author Jose David Majano [facility] September 16, 2023 12:35pm Note Date/Time September 16, 2023 8:2 1am [facility] Medical Records Department [address] [place] [id number] Progress Note - Hospitalist 09/16/2313 MR#: [id number] Acct: [id number] Name: MARCEL TURCIOS Rep #:[id number] : 1960 62 From: Jose David Majano DO PCP: Care Physician,No Primary Status :ADM IN Location: [place] [address] Reason for Visit Reason for Visit: Diagnoses [...] % (Auto) 63.9, Lymph % (Auto) 20.5, Mclennan% (Auto) 11.9 H, Eos % (Auto) 2.1, [...] Clarity Clear, Urine pH 5.0, Ur Specific [place] 1.025, Urine Protein 30 H, Urine Glucose [...] rhythm with right bundle branch block. * [id number] score of 0 but patient has poor [...] OT evaluation. Charges/Coding Visit Charges Inpatient E&M: 57278 Subs Hosp L2 09/16/23 1235 <Electronically signed by Jose David Majano DO> Cosigner Signature (if applicable): CC: ~ Signed [facility] Work Phone: 1(200) 396-675103-21-2024 Progress note Author Clark Lerma [facility] September 16, 2023 8:21am Note Date/Time September 16, 2023 8:[address] [facility] Medical Records Department [address] [place] [address] Progress Note - Cardiology 09/16/23 0808 MR#: [id number] Acct: [id number] Name: MARCEL TURCIOS Rep #:[id number] : 1960 62 From: Clark Lerma MD PCP: Care Physician,No Primary Status :ADM IN Location: [place] [address] Subjective Subjective Patient seen and evaluated. Appears [...] % (Auto) 63.9, Lymph % (Auto) 20.5, Mclennan% (Auto) 11.9 H, Eos % (Auto) 2.1, [...] Clarity Clear, Urine pH 5.0, Ur Specific [place] 1.025, Urine Protein 30 H, Urine Glucose [...] % (Auto) 63.9, Lymph % (Auto) 20.5, Mclennan % (Auto) 11.9 H, Eos % (Auto) [...] Clarity Clear, Urine pH 5.0, Ur Specific [place] 1.025, Urine Protein 30 H, Urine Glucose [...] to call if any issues arise. 09/16/23 0821 <Electronically signed by Clark Lerma MD> Cosigner Signature (if applicable): CC: ~ Signed [facility] Work Phone: 1(765) 280-560303-21-2024 History and physical note Author Rod Castellanos [facility] September 15, 2023 10:52pm Note Date/Time September 15, 2023 1:5 0pm [facility] Medical Records Department [address] [place] [address] H&P Exam - Hospitalist 09/15/23 1350 MR#: [id number] Acct: [id number] Name: MARCEL TURCIOS Rep #:[id number] : 1960 62 From: Rod mathias DO PCP: Care Physician,No Primary Status :ADM IN Location: [place] [address] HPI - General General Date of Admission: 09/15/23 Date of Service: 09/15/23 Chief Complaint: Worsening weakness and progressive dyspnea with exertion HPI Narrative MARCEL TURCIOS, is a 62 M who presented to [facility] ED on 09/15/2023 with worsening weakness and [...] in a trailer by himself down in [place] and was hardly able to do anything [...] job. No other acute concerns this time. [facility] Medical History Anxiety Back pain COPD (chronic [...] % (Auto) 63.9, Lymph % (Auto) 20.5, Mclennan% (Auto) 11.9 H, Eos % (Auto) 2.1, [...] Patient is a 62-year-old male who presented [facility] ED on 09/15/2023 with worsening weakness and dyspnea on exertion. 1. New onset A-fib/a flutter with RVR ? Initially with concern for wide-complex tachycardia but after administration of adenosine, more consistent with A-fib/flutter. Given dose of IV Cardizem with conversion to sinus rhythm. EKG showed normal sinus rhythm with right bundle branch block. ? [id number] score of 0 but patient has poor [...] 75 minutes. Charges/Coding Visit Charges Inpatient E&M: 48924 Init Hosp L3 09/15/23 6326 <Electronically signed by Rod Castellanos DO> Cosigner Signature (if applicable): CC: Dr. Rod Mosteller, DO; No Primary Care Physician~ Signed [facility] Work Phone: 1(844) 720-757203-20-2024 Consult note Author Clark Lerma [facility] September 15, 2023 6:16pm Note Date/Time September 15, 2023 6:1 2pm [facility] Medical Records Department [address] [place] [address] Consultation - Cardiology 09/15/23 1808 MR#: [id number] Acct: [id number] Name: MARCEL TURCIOS Rep #:[id number] : 1960 62 From: Clark Lerma MD PCP: Care Physician,No Primary Status :ADM IN Location: [place] [address] Assessment & Plan Assessment/Plan (1) Atrial fibrillation [...] he converted back to normal sinus rhythm [facility] Medical History Anxiety Back pain COPD (chronic [...] % (Auto) 63.9, Lymph % (Auto) 20.5, Mclennan% (Auto) 11.9 H, Eos % (Auto) 2.1, [...] % (Auto) 63.9, Lymph % (Auto) 20.5, Mclennan % (Auto) 11.9 H, Eos % (Auto) [...] 12:50 EDT Reading Location ID and State: [address] [place] [address] , Service support , Echocardiogram 09/15/23 14:11 Interpretation Summary Normal left ventricle. The estimated ejection fraction is 65 %. The study was technically difficult. Contrast injection was performed. Ordering Physician: Rod Castellanos Performed By: Jose Gaines, KALPANA 09/15/23 1816 <Electronically signed by Clark Lerma MD> Cosigner Signature (if applicable): CC: Dr. Clark Lerma MD; No Primary Care Physician~ Signed [facility] Work Phone: 1(315) 836-756103-20-2024 Discharge summary Author Bertram Yi [facility] September 15, 2023 4:28pm Note Date/Time September 15, 2023 1:0 9pm [facility] Medical Records Department [address] [place] [address] Emergency Department Summary 09/15/23 MR#: [id number] Acct: [id number] Name: MARCEL TURCIOS Rep #:[id number] : 1960 62 From: Bertram Torres PCP: Care Physician,No Primary Status :ADM IN Location: [address] History of Present Illness Chief Complaint: Weakness [facility] Medical History (Updated 09/15/23 @ 13:56 [...] % (Auto) 63.9 Lymph % (Auto) 20.5 Mclennan % (Auto) 11.9 H Eos % (Auto) [...] flutter, Weakness Disposition Disposition: Acute Care Hospital [facility] What to do if you have Problems For any increased pain, shortness of breath, bleeding, nausea or vomiting, chestpain, or any unexpected problems, contact your Primary Care Provider. Call [facility] ([phone]) or report to the closest Emergency Room. Call 911 if necessary. 09/15/23 1628 <Electronically signed by Bertram Yi DO> Cosigner Signature (if applicable): CC: No Primary Care Physician ~ Signed [facility] Work Phone: 1(362) 472-994303-20-2024 Discharge summary Author Bertram Yi [facility] September 15, 2023 4:28pm Note Date/Time September 15, 2023 1:[address] [facility] Medical Records Department [address] [place] [address] Emergency Department Summary 09/15/23 MR#: [id number] Acct: [id number] Name: MARCEL TURCIOS Rep #:[id number] : 1960 62 From: Bertram Torres PCP: Care Physician,No Primary Status :ADM IN Location: [address] History of Present Illness Chief Complaint: Weakness [facility] Medical History (Updated 09/15/23 @ 13:56 [...] % (Auto) 63.9 Lymph % (Auto) 20.5 Mclennan % (Auto) 11.9 H Eos % (Auto) [...] 12:50 EDT Reading Location ID and State: [facility] / [place] , Service support , EKG Initial EKG: Attestation: I personally reviewed and interpreted this EKG as follows: Comments: Probable atrial flutter with a ventricular rate of 170 bpm. Right bundle branch block noted Management Discussion w/another healthcare provider: Hospitalist Discharge Plan Dx/Rx/DC Orders Clinical Impression: Obstructive sleep apnea, Atrial fibrillation and flutter, Weakness Disposition Disposition: Acute Care Hospital [facility] What to do if you have Problems For any increased pain, shortness of breath, bleeding, nausea or vomiting, chestpain, or any unexpected problems, contact your Primary Care Provider. Call [facility] ([phone]) or report to the closest Emergency Room. Call 911 if necessary. 09/15/23 1628 <Electronically signed by Bertram Yi DO> Cosigner Signature (if applicable): CC: No Primary Care Physician ~ Signed [facility] Work Phone: 1(576) 804-368711-08-2021 NotePatient Outreach (4CQ) MARCEL TURCIOS ([id number]) 1960 M Date Time Provider Department 05/05/21 [...] 04/15/2017 Encounter Status:Closed by KULDIP WHITAKER on 05/05/21[facility]11-08-2021 NoteHNO ID: [id number] Author: Kuldip Fischer Service: ? Author Type: [...] on 10/19/2020 INFLUENZA(1) due on 02/26/2021 Kuldip Whitakers Pss May 05, 2021 10:56 [facility] note Author Radha Tellez [facility] September 16, 2023 1:55pm Note Date/Time September 16, 2023 1:[address] [facility] Medical Records Department [address] [place] [address] Counseling Note - Pharmacy 09/16/23 1355 MR#: [id number] Acct: [id number] Name: KAROLINAMARCEL Brando Rep #:[id number] : 1960 62 From: Radha Tellez PCP: Care Physician,No Primary Status :ADM IN Y Location: [place] [address] Pharmacy [facility] has performed discharge medication reconciliation [...] Signature (if applicable): Date CC: ~ Signed [facility] Work Phone: Discharge summary Author Jose David Majano [facility] September 16, 2023 1:12pm Note Date/Time September 16, 2023 1:[address] [facility] Medical Records Department [address] [place] [address] Discharge Summary 09/16/23 1259 MR#: [id number] Acct: [id number] Name: MARCEL TURCIOS Rep #:[id number] : 1960 62 From: Jose David Majano DO PCP: Care Physician,No Primary Status :ADM IN Location: [place] [address] Providers Date of Admission: 09/15/23 Primary Care [...] rhythm with right bundle branch block. * [id number] score of 0 but patient has poor [...] succinate 50 mg twice daily. Patient said [id number] score was 0 so no anticoagulation was [...] Clarity Clear, Urine pH 5.0, Ur Specific [place] 1.025, Urine Protein 30 H, Urine Glucose [...] Qty: 30 0RF Referrals / Follow Up: [facility] [Provider Group] - Within 1 Month [facility] [Provider Group] - Within 3 Months Care Physician,No Primary [Primary Care Provider] - Within 2 Weeks Disposition Disposition (needs filled in before D/C Order can be placed): Home, Self Care Charges/Coding Visit Charges Inpatient E&M: 78834 Disch Hosp >30min 09/16/23 1312 <Electronically signed by Jose David Majano DO> Cosigner Signature (if applicable): CC: Dr. 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 Jose David Sims MD Status:ADM IN Location: [facility] [id number]- 1 HPI - General General Date of Admission: 01/17/25 Date of Service: 01/17/25 Chief Complaint: Tachycardia and panic attack HPI Narrative MARCEL TURCIOS, is a 64-year-old male history of ZAN, COPD, paroxysmal atrial fibrillation noncompliant with anticoagulation, tobacco use who presented to [facility] ED 01/17/2025 with shortness of breath and tachycardia. Patient has monitor at home and realized his heart rate was high so he took his Eliquis (which she does not take regularly) and came in for evaluation. He is chronically short of breath but felt he was having a panic attack secondary to the above. Reportedly patient has history of PTSD when it comes to hospitals and that he does not trust doctors which is why he is noncompliant with his medications. At baseline patient on BiPAP and 2 L of O2 with settings 17/5. In the ED temp 97.5, heart rate 128, blood pressure 145/95 patient with respiratory rate of 31 he was on 2 L nasal cannula saturating 96%, he was placed on his home BiPAP and maintained saturations with improvement respiratory rate. VBG showed pH 7.48 with a total CO2 of 23 and bicarb of 22. CBC with white blood cell count 12.8 and hemoglobin of 18. Troponin of 18 with a repeat []. proBNP 782 and D-dimer 0.61. BMP with a bicarb of 16.2 and a gap of 21, BUN 16 and creatinine 1.27 which seems to be about baseline. EKG showed a wide QRS tachycardia with right bundle branch block and a rate of 156, adenosine given to assess underlying rhythm, 6 mg given without any effect and 12 mg given which revealed A-fib with PVCs and heart rate subsequently increased back to 150. Patient given another dose of IV diltiazem and placed on a drip. Patient has a contrast allergy so chest x-ray and D-dimer obtained as patient still develops rash despite premedication and would ideally would like to avoid CT. D-dimer 0.61 but technically normal when corrected for age and chest x-ray redemonstrated atelectasis. Given patient remained in A-fib with RVR he was given diltiazem bolus and placed on a diltiazem drip and hospitalist contacted for admission. Patient evaluated bedside. He reports he was at [place] yesterday for the rapid heart rate and anxiety but they wanted to transfer him to [place] to see cardiology and he did not want to so he left [place]. This morning he woke up having a panic attack and tachycardic prompting him to come in. Reports that his cough is at baseline and shortness of breath is at baseline, no chest pain. Reports he got an antifungal medicine 4 days ago for some fungal infection in his armpit and since then he has had watery bowel movements and some general discomfort in his abdomen and has not been eating well over the past 4 days has had some nausea. He said he is very sensitive to medicine and this all started after he took that medicine, this is not what he is presenting for however. Denies any fevers or chills but does note some sweats. Endorses using the BiPAP at all times and when he has to get up to go to the bathroom he gets very short of breath as he has to take it off and he will get dizzy but does not feel that way when he is laying down [facility] Medical History (Updated 01/17/25 @ 14:[address] Jaimie Okeefe MD) Acute respiratory failure with hypoxia TAINA (acute kidney injury) Anxiety Anxiety Atrial fibrillation with rapid ventricular response Back pain Back pain COPD (chronic obstructive pulmonary disease) COPD (chronic obstructive pulmonary disease) COPD exacerbation Dyspnea Elevated troponin Erythrocytosis Foraminal stenosis of lumbosacral region Foraminal stenosis of lumbosacral region High anion gap metabolic acidosis Hypoxia Lumbar canal stenosis Obstructive sleep apnea ZAN (obstructive sleep apnea) Pneumonia PTSD (post-traumatic stress disorder) Radiculitis of leg Home Medications ?Medication ?Instructions ?Recorded ?Last Taken ?Type albuterol sulfate 1.25 mg/3 mL 1.25 mg inhalation Q4H PRN PRN 12/08/24 Unknown History solution for nebulization dyspnea budesonide-formoterol HFA 160 2 inh inhalation Q12H Unknown History mcg-4.5 mcg/actuation aerosol inhaler (Breyna) magnesium oxide 400 mg (241.3 mg 400 mg PO BID 5 Unknown History magnesium) tablet fluconazole 150 mg tablet 150 mg PO QWEEK 01/17/25 Unk nown History ketoconazole 2 % topical cream 1 applic topical BID Unknown History Allergy/AdvReac Type Severity Reaction Status Date / Time codeine Allergy Hives Verified 12/08/24 21:09 Iodinated Contrast Media Allergy Hives Verified 12/08/24 21:09 (Iodinated Contrast Media - IV Dye) diclofenac AdvReac Swelling Verified 12/08/24 21:09 metaxalone AdvReac Swelling Verified 12/08/24 21:09 methylphenidate (From AdvReac hallucinati Verified 12/08/24 21:09 Ritalin) ons Phenylpiperazine AdvReac Other Verified 12/08/24 21:09 Antidepressant Tetracyclic Antidepressants AdvReac Other Verified 12/08/24 21:09 Tricyclic Antidepressants AdvReac Other Verified 12/08/24 21:09 and Tricy Family History Other Diabetes Hypertension Surgical History S/P epidural steroid injection Social History household members: family Smoking Status: Current every day smoker tobacco type: cigarettes and e- cigarettes alcohol intake: never substance use type: does not use ROS ROS Narrative General: Has had some occasional sweats overnight HENT: Denies headache, denies stuffy nose, has a little bit of a deep sore throat EYES: Denies changes in vision Resp: Chronic cough and chronic shortness of breath Cardiac: Denies chest pain GI: Generalized abdominal discomfort with liquid stool, nausea : Difficulty emptying bladder, bladder leaking Extremity: Denies swelling MSK: Denies weakness Neuro: Denies any numbness/tingling Heme: Denies any bleeding or bruising Skin: Denies rashes Psychiatric: Reports feeling very anxious Vital Signs Vital Signs Vital Signs: 01/17/25 09:31 01/17/25 09:39 01/17/25 09:54 Temperature 97.5 F L Temperature Source Temporal Pulse Rate 128 H Respiratory Rate 30 H Respiratory Effort Short of Breath Respiratory Depth Shallow Respiratory Pattern Tachypnea Blood Pressure 145/95 H Blood Pressure Mean 111 Blood Pressure Source Pulse Ox 96 Oxygen Delivery Method Nasal Cannula Nasal Cannula Room Air Oxygen Flow Rate (L/min) 2 2 01/17/25 10:30 01/17/25 11:15 01/17/25 11:45 Temperature Temperature Source Pulse Rate 155 H 159 H Respiratory Rate 26 H 26 H Respiratory Effort Respiratory Depth Respiratory Pattern Irregular Blood Pressure 146/111 H Blood Pressure Mean 122 Blood Pressure Source Pulse Ox 98 98 Oxygen Delivery Method Bi-pap Bi-pap Oxygen Flow Rate (L/min) 2 01/17/25 11:58 01/17/25 12:08 01/17/25 12:25 Temperature 97.8 F Temperature Source Oral Pulse Rate 152 H 152 H 155 H Respiratory Rate 22 H 28 H 22 H Respiratory Effort Respiratory Depth Respiratory Pattern Blood Pressure 129/84 H 129/98 H 120/88 H Blood Pressure Mean 99 108 98 Blood Pressure Source Monitor Pulse Ox 96 95 97 Oxygen Delivery Method Room Air Bi-pap Bi-pap Oxygen Flow Rate (L/min) 01/17/25 13:00 01/17/25 13:13 Temperature 97.8 F Temperature Source Oral Pulse Rate 120 H 126 H Respiratory Rate 19 H 23 H Respiratory Effort Respiratory Depth Respiratory Pattern Blood Pressure 147/77 H 147/77 H Blood Pressure Mean 100 100 Blood Pressure Source Monitor Pulse Ox 97 96 Oxygen Delivery Method Bi-pap Bi-pap Oxygen Flow Rate (L/min) Weight Weight: 168.101 kg Body Mass Index (BMI) 48.9 Physical Exam Narrative General: Alert, oriented, no apparent distress HEENT: Atraumatic, normocephalic Eyes: Anicteric, normal conjunctiva, extraocular movements grossly intact Neck: Supple Respiratory: Some scattered wheezes, slight increased respiratory effort Cardiovascular: Tachycardic 120s to 150s GI: Soft, little bit tender diffusely without rebound, guarding, rigidity Extremities: No edema Musculoskeletal: Moving all extremities Neuro: No overt focal neurological deficits Skin: No rashes appreciated Psych: Cooperative Results Lab / Micro Data 01/17/25 09:44 01/17/25 09:44 Labs: Laboratory Results - last 24 hr 01/17/25 09:44: WBC 12.8 H, RBC 6.11, Hgb 18.0 H*, Hct 53.6, MCV 87.7, MCH 29.5, MCHC 33.6, RDW Std Deviation 47.1 H, RDW Coeff of Penelope 14.9 H, Plt Count 248, MPV 9.4, Immature Gran % (Auto) 0.500, Neut % (Auto) 64.5, Lymph % (Auto) 25.4, Mclennan % (Auto) 7.7, Eos % (Auto) 1.1, Baso % (Auto) 0.8, Absolute Neuts (auto) 8.3 H, Absolute Lymphs (auto) 3.25, Nucleated RBC % 0, Sodium 138, Potassium 4.3, Chloride 101, Carbon Dioxide 16.2 L, Anion Gap 21 H, BUN 16, Creatinine 1.27 H, Estim Creat Clear Calc 94.47, Est GFR (MDRD) Non-Af 63, BUN/Creatinine Ratio 12.7, Glucose 162 H, Calcium 9.6, Magnesium 2.1, Troponin T High Sens 18 D, NT pro BNP II 782 01/17/25 09:49: D-Dimer Quant (PE/DVT) 0.61 H* 01/17/25 12:40: Troponin T Hi Sens 2 Hr 22 ABG Data ABG results: ABG 01/17/25 10:12 Specimen Type MATHEW Sample Site Not entered O2 % 2.0 VBG pH 7.47 H VBG pO2 48 H VBG HCO3 22 VBG Total CO2 23 VBG O2 Sat (Calc) 87 H VBG Base Excess -1 POC Mix VBG pCO2 Pt Tmp 30.6 L O2 Delivery Device Not entered Imaging Radiology Impression Chest X-Ray 01/17/25 12:12 IMPRESSION: There is atelectasis scar at the right lung base, similar to the prior. Reading [facility] Assessment & Plan Assessment/Plan (1) Atrial fibrillation with rapid ventricular response: PLAN: Plan #Afib w/ RVR -Admit to telemetry -Initial rate in ED: 128 -EKG: Rate of 156 with wide QRS tachycardia with right bundle branch block, slow down with adenosine and shown to be A-fib with PVCs -Rate control: Diltiazem drip -AC: Restart home Eliquis -Echocardiogram: Recently completed 12/09/2024 with EF of 55% but difficult to visualize other components due to body habitus -TSH: Recently within normal limits -D-dimer normal when adjusted for age, do not think patient needs CTA -Will check respiratory panel to assess for any other contributing factors -Patient just started on diltiazem drip, heart rate still 120s to 150s, may need to consider digoxin load if not improving or amiodarone, blood pressure stable # Diarrhea/nausea/abdominal discomfort -Patient reports this started 4 days ago after taking an antifungal medicine and he has not taken any more -Gentle IV fluids -KUB -Somewhat diffusely mildly tender without rebound, guarding, rigidity or any peritoneal signs that would necessitate acute advanced imaging at this time -Stool studies -Respiratory panel -I's and O's -Supportive care # Difficulty urinating -Reports some urinary hesitancy and urgency as he will dribble on his way to the bathroom -Will check UA -Will check postvoid # Chronic hypoxic respiratory failure secondary to ZAN and COPD -Patient chronically wears his BiPAP at 17/5 at home and 2 L of O2 per his report -Patient's hemoglobin still elevated 18 and he is back in A-fib RVR, suspect that he needs outpatient sleep study for titration of BiPAP settings as this is likely not his optimal settings -Will have patient on ipratropium nebs while awaiting improvement in heart rate before adding albuterol if possible and budesonide inhaled #Morbid obesity -BMI documented as 48.9 kg/m? at time of admission -Complicates treatment, prognosis, outcomes -Recommend weight loss and lifestyle changes #Tobacco use -Advise cessation -Nicotine replacement available if desired, patient presently does not want any -Counseled extensively on risks of smoking with his oxygen # Panic attacks and anxiety -Patient has received Ativan as needed in the ED, ultimately may benefit from following up with psychiatry on an outpatient basis for either therapy or starting on medications #DVT ppx: Patient be placed back on his home Rodolfo Okeefe MD Charges/Coding Visit Charges Inpatient E&M: 02925 Init Hosp L2 01/17/25 1415 <Electronically signed by Jaimie Okeefe MD> Cosigner Signature (if applicable): CC: Dr. Jose David Sims MD; Dr. Jaimie Okeefe MD~ Signed [facility] Work Phone: Hospital course Narrative No data available for this section [facility] Reason for referral (narrative)No reason for referral information [facility] Work Phone: Summary Purpose Family History Relationship Condition Age at Onset Recorded Date/T federico Unknown Family History?Heart Disease, Hypertension Unknown August 16, 2019 9:22pm Family History?Heart Disease, Hypertension Unknown August 16, 2019 9:22pm Family History?No pe rtinent history Unknown December 27, 2013 1:35pm Relationship Condition Age at Onset Recorded Date/T federico Not Specified Diabetes mellitus Unknown Hypertension Unknown Advance Directives Advance Directive Response Recorded Date/ Time Advance Directives No November 12 2:20pm Living Will No September 15, 2023 11:35am Power of Hydrogenation Still Operator No September 14 11:35am Advance Directive Response Recorded Date/ Time Advance Directives No November 12 6 2:20pm Living Will No September 15, 2023 4:53pm Power of Hydrogenation Still Operator No September 14 4:53pm Advance Directive Response Recorded Date/ Time Do you have a Healthcare Power of Hydrogenation Still Operator? No December 08, 2024 12:22pm Advance Directives No November 12 6 2:20pm Advance Directive Response Recorded Date/ Time Do you have a Healthcare Power of Hydrogenation Still Operator? No December 08, 2024 4:40pm Advance Directives No November 12 6 2:20pm Advance Directive Response Recorded Date/ Time Do you have a Healthcare Power of Hydrogenation Still Operator? No December 08, 2024 9:14pm Do you have a Healthcare Power of Hydrogenation Still Operator? No December 08, 2024 4:40pm Advance Directives No November 12 6 2:20pm Advance Directive Response Recorded Date/ Time Do you have a Healthcare Power of Hydrogenation Still Operator? No December 09, 2024 2:04am Do you have a Healthcare Power of Hydrogenation Still Operator? No December 08, 2024 4:40pm Advance Directives No November 12 2:20pm Advance Directive Response Recorded Date/ Time Do you have a Healthcare Power of Hydrogenation Still Operator? No December 09, 2024 2:04am Do you have a Healthcare Power of Hydrogenation Still Operator? No December 08, 2024 4:40pm Do you have a Healthcare Power of Hydrogenation Still Operator? No January 17, 2025 9:39am Advance Directives No November 12 2:20pm Chief Complaint and Reason for Visit [...] ACUTE COPD EXACERBATION December 08, 2024 3:35pm Chief Complaint Admit Date ACUTE COPD EXACERBATION December 08, 2024 3:35pm ACUTE HYPOXIC RESPIRATORY FAILURE November 262024 12:58am Reason for Visit Admit Date Acute respiratory failure with hypoxia [facility] 2024 3:35pm COPD exacerbation December 08, 2024 3:35 pm Acute respiratory failure with hypoxia [facility] 2024 12:58am Atrial fibrillation with rapid ventricul ar response December 09, 2024 12:58am Pneumonia December 09, 2024 12:5 8am Chief Complaint Admit Date ACUTE COPD EXACERBATION December 08, 2024 3:35pm ACUTE HYPOXIC RESPIRATORY FAILURE November 262024 12:58am ACUTE HYPOXIC RESPIRATORY FAILURE November 262024 5:48am Reason for Visit Admit Date Acute respiratory failure with hypoxia [facility] 2024 3:35pm COPD exacerbation December 08, 2024 3:35 pm Acute respiratory failure with hypoxia [facility] 2024 12:58am TAINA (acute kidney injury) December 09 12:58am Atrial fibrillation with rapid ventricul ar response December 09, 2024 12:58am Dyspnea December 09, 2024 12:5 8am Elevated troponin December 09, 2024 12:5 8am Erythrocytosis December 09, 2024 12:5 8am High anion gap metabolic acidosis November 262024 12:58am Hypoxia December 09, 2024 12:5 8am Pneumonia December 09, 2024 12:5 8am COPD exacerbation December 09, 2024 12:5 8am Chief Complaint Admit Date ACUTE COPD EXACERBATION December 08, 2024 3:35pm ACUTE HYPOXIC RESPIRATORY FAILURE November 262024 12:58am ACUTE HYPOXIC RESPIRATORY FAILURE November 262024 5:48am ACUTE HYPOXIC RESPIRATORY FAILURE November 262024 10:52am Chief Complaint Admit Date ACUTE COPD EXACERBATION December 08, 2024 3:35pm ACUTE HYPOXIC RESPIRATORY FAILURE November 262024 12:58am ACUTE HYPOXIC RESPIRATORY FAILURE November 262024 5:48am ACUTE HYPOXIC RESPIRATORY FAILURE November 262024 10:52am AFIB WITH RVR January 17, 2025 2:00 pm Reason for Visit Admit Date Acute respiratory failure with hypoxia [facility] 2024 3:35pm COPD exacerbation December 08, 2024 3:35 pm Atrial fibrillation with rapid ventricul ar response December 09, 2024 12:58am Acute respiratory failure with hypoxia [facility] 2024 12:58am TAINA (acute kidney injury) December 09 12:58am COPD exacerbation December 09, 2024 12:5 8am Dyspnea December 09, 2024 12:5 8am Elevated troponin December 09, 2024 12:5 8am Erythrocytosis December 09, 2024 12:5 8am High anion gap metabolic acidosis November 262024 12:58am Hypoxia December 09, 2024 12:5 8am Pneumonia December 09, 2024 12:5 8am Atrial fibrillation with rapid ventricul ar response January 17, 2025 2:00pm Additional Source Comments (unrecognized sect ion and content) No Status Records FoundNo Status Records FoundNo Status Records FoundNo Status Records Found INFORMATION SOURCE (unrecogn ized section and content) DATE CREATED AUTHOR 12/21/2017 [facility] DATE CREATED AUTHOR AUTHOR'S ORGANIZ ATION 07/27/2019 [facility] ([place]) DATE CREATED AUTHOR AUTHOR'S ORGANIZ ATION 08/21/2021 [facility] DATE CREATED AUTHOR AUTHOR'S ORGANIZ ATION 12/19/2024 [place] [facility] Care Teams (unrecognized sec tion and content) Team Status: Active Member Role Status Dates Dr. Jose David Sims MD Primary Care Provider Active Team Status: Inactive Member Role Status Dates Dr. Jose David Sims MD Primary Care Provider Active Start: December 07, 2024 End: December 07, 2024 Dr. Jose David Sims MD Attending Provider Active St art: December 07, 2024 End: December 07, 2024 Dr. Jose David Sims MD Referring Provider Active St art: December 07, 2024 End: December 07, 2024 Team Status: Inactive Member Role Status [...] Provider Active Star t: December 08, 2024 Team Status: Inactive Member Role Status Dates Dr. Jose David Sims MD Primary Care Provider Active Start: December 09, 2024 End: December 10, 2024 Dr. Jose David Georges DO Emergency Provider Active Start: December 09, 2024 End: December 10, 2024 Dr. Odilia Burgos DO Admit Provider Active Start : December 09, 2024 End: December 10, 2024 Dr. Odilia Burgos DO Other Provider Active Start : December 09, 2024 End: December 10, 2024 Dr. Uyen Marino MD Other Provider Active St art: December 09, 2024 End: December 10, 2024 Dr. Mis Edmondson MD Attending Provider Active Start: December 09, 2024 End: December 10, 2024 Team Status: Active Member Role Status Dates Dr. Jose David Sims MD Primary Care Provider Active Start: December 09, 2024 Dr. Jesse Urban MD Attending Provider Active Start: December 09, 2024 Team Status: Active Member Role Status Dates Dr. Jose David Sims MD Primary Care Provider Active Start: December 10, 2024 Dr. Jose David Georges , Emergency Provider Active Start: December 10, 2024 Dr. Odilia Burgos DO Admit Provider Active Start : December 10, 2024 Dr. Odilia Burgos DO Attending Provider Active S tart: December 10, 2024 Dr. Odilia Burgos DO Other Provider Active Start : December 10, 2024 Dr. Uyen Marino MD Other Provider Active St art: December 10, 2024 Dr. Mis Edmondson MD Other Provider Active St art: December 10, 2024 Team Status: Active Member Role Status Dates Dr. Jose David Sims MD Primary Care Provider Active Start: December 10, 2024 Dr. Jose David Georges , Emergency Provider Active Start: December 10, 2024 Dr. Odilia Burgos , Admit Provider Active Start : December 10, 2024 Dr. Odilia Burgos DO Other Provider Active Start : December 10, 2024 Dr. Uyen Marino MD Other Provider Active St art: December 10, 2024 Dr. Mis Edmondson MD Other Provider Active St art: December 10, 2024 Dr. Jesse Urban MD Attending Provider Active Start: December 10, 2024 Team Status: Active Member Role Status Dates No Primary Care Physician Family Provider Active No Primary Care Physician Primary Care Provider Active Team Status: Active Member Role Status Dates Dr. Bertram Yi DO Emergency Provider Active No Primary Care Physician Primary Care Provider Active Dr. Rod Castellanos , DO Admit Provider, Attending Provider Active Team Status: Active Member Role Status Dates No Primary Care Physician Primary Care Provider Active Dr. Clark Lerma MD Attending Provider Active Team Status: Active Member Role Status Dates Dr. Bertram Yi DO Emergency Provider Active No Primary Care Physician Primary Care Provider Active Dr. Rod Castellanos , DO Admit Provider, Other Pro vider Active Dr. Clark Lerma MD Attending Provider, Other Provide r Active Dr. Jose David Majano , Other Provider Active Team Status: Active Member Role Status Dates Dr. Bertram Yi , Emergency Provider Active No Primary Care Physician Primary Care Provider Active Dr. Rod Castellanos DO Admit Provider, Other Pro vider Active Dr. Clark Lerma MD Other Provider Active Dr. Jose David Majano DO Attending Provider, Other Provid er Active Team Status: Inactive Member Role Status Dates Dr. Bertram Yi DO Emergency Provider Active No Primary Care Physician Primary Care Provider Active Dr. Rod Castellanos DO Admit Provider, Other Pro vider Active [...] Start: December 08, 2024 Dr. Shelbie Guaman DO Emergency Provider Active Start: December 08, 2024 [...] End: December 08, 2024 Dr. Shelbie Guaman DO Emergency Provider Active Start: December 08, 2024 [...] December 08, 2024 End: December 08, 2024 Team Status: Active Member Role Status Dates Dr. Jose David Sims MD Primary Care Provider Active Start: December 09, 2024 Dr. Jose David Georges DO Emergency Provider Active Start: December 09, 2024 Dr. Odilia Burgos DO Admit Provider Active Start : December 09, 2024 Dr. Odilia Burgos DO Attending Provider Active S tart: December 09, 2024 Team Status: Active Member Role/Relationship Status Dates Dr. Jose David iSms MD Primary Care Provider Active Team Status: Inactive Member Role/Relationship Status Dates Dr. Jose David Sims MD Primary Care Provider Active Start: December 07, 2024 End: December 07, 2024 Dr. Jose David Sims MD Attending Provider Active St art: December 07, 2024 End: December 07, 2024 Dr. Jose David Sims MD Referring Provider Active St art: December 07, 2024 End: December 07, 2024 Team Status: Inactive Member Role/Relationship Status Dates Dr. Jose David Sims MD Primary Care Provider Active Start: December 08, 2024 End: December 08, 2024 Dr. Shelbie Guaman DO Emergency Provider Active Start: December 08, 2024 End: December 08, 2024 Dr. Mis Edmondson MD Admit Provider Active St art: December 08, 2024 End: December 08, 2024 Dr. Mis Edmondson MD Attending Provider Active Start: December 08, 2024 End: December 08, 2024 Dr. iMs Edmondson MD Referring Provider Active Start: December 08, 2024 End: December 08, 2024 Dr. Jesse Urban MD Other Provider Active Star t: December 08, 2024 End: December 08, 2024 Team Status: Inactive Member Role/Relationship Status Dates Dr. Jose David Sims MD Primary Care Provider Active Start: December 09, 2024 End: December 10, 2024 Dr. Jose David Georges DO Emergency Provider Active Start: December 09, 2024 End: December 10, 2024 Dr. Odilia Burgos DO Admit Provider Active Start : December 09, 2024 End: December 10, 2024 Dr. Odilia Burgos DO Other Provider Active Start : December 09, 2024 End: December 10, 2024 Dr. Uyen Marino MD Other Provider Active St art: December 09, 2024 End: December 10, 2024 Dr. Mis Edmondson MD Attending Provider Active Start: December 09, 2024 End: December 10, 2024 Team Status: Active Member Role/Relationship Status Dates Dr. Jose David Sims MD Primary Care Provider Active Start: December 09, 2024 Dr. Jesse Urban MD Attending Provider Active Start: December 09, 2024 Team Status: Active Member Role/Relationship Status Dates Dr. Jose David Sims MD Primary Care Provider Active Start: December 10, 2024 Dr. Jose David Georges DO Emergency Provider Active Start: December 10, 2024 Dr. Odilia Burgos DO Admit Provider Active Start : December 10, 2024 Dr. Odilia Burgos DO Attending Provider Active S tart: December 10, 2024 Dr. Odilia Burgos DO Other Provider Active Start : December 10, 2024 Dr. Uyen Marino MD Other Provider Active St art: December 10, 2024 Dr. Mis Edmondson MD Other Provider Active St art: December 10, 2024 Team Status: Active Member Role/Relationship Status Dates Dr. Jose David Sims MD Primary Care Provider Active Start: December 10, 2024 Dr. Jose David Georges DO Emergency Provider Active Start: December 10, 2024 Dr. Odilia Burgos DO Admit Provider Active Start : December 10, 2024 Dr. Odilia Burgos DO Other Provider Active Start : December 10, 2024 Dr. Uyen Marino MD Other Provider Active St art: December 10, 2024 Dr. Mis Edmondson MD Other Provider Active St art: December 10, 2024 Dr. Jesse Urban MD Attending Provider Active Start: December 10, 2024 Team Status: Active Member Role/Relationship Status Dates Dr. Jose David Sims MD Primary Care Provider Active Start: January 17, 2025 Dr. Jose Vallejo DO Emergency Provider Activ e Start: January 17, 2025 Dr. Jaimie Okeefe MD Admit Provider Active Star t: January 17, 2025 Dr. Jaimie Okeefe MD Attending Provider Active Start: January 17, 2025 Dr. Jaimie Okeefe MD Other Provider Active Star t: January 17, 2025 Goals (unrecognized section and content) Goals may be documented in a n alternate sectionGoals may be documented in an alternate sectionGoals may be documented in an alternate sectionGoals may be documented in an alternate section No data available for this section FOR RECORDS PERTAINING TO PATIENTS WHO [...] BE BASED ON THE PRIMARY CLINICAL RECORDS. [facility] provides no warranty or guarantee of the accuracy or completeness of information in this document.
[2025-01-17] MEDS: Diltiazem 125 MG in Dextrose 5%-Water (100mL Bag) 100 ML 15 MG IV (21:08)
[2025-01-17] MEDS: APIXABAN 5 MG TABLET PO (21:10)
[2025-01-18] VITALS (32 sets, daily range): BP systolic 90–164; BP diastolic 58–122; PULSE 66–124; RESP 14–22; TEMP 36.6–37; O2SAT 93–98; BMI 47.6
[2025-01-18] MEDS: Diltiazem 125 MG in Dextrose 5%-Water (100mL Bag) 100 ML 15 MG IV (05:28)
[2025-01-18 06:20] LABS: Hematocrit 45.2 % (40-54); Hemoglobin 15.6 g/dL (13.0-16.5); Mean Corp Hgb Conc 34.5 g/dL (32-36); Mean Corpuscular Volume 86.3 fL (80-94); Mean Platelet Vol. 9.3 fl (6.2-12.0); Platelet Count 198 K/mm3 (150-450); RBC Distribution Width CV 14.6 % (11.6-14.6); RBC Distribution Width SD 46.3 fl (35.1-43.9); Red Blood Count 5.24 M/mm3 (4.6-6.2); White Blood Count 11.1 K/mm3 (4.4-11.0)
[2025-01-18 06:51] LABS: Anion Gap 14 (5-15); BUN 21 mg/dL (4-19); BUN/Creat Ratio 17.6 RATIO (10-20); Calcium,Total 9.2 mg/dL (7.6-11.0); Carbon Dioxide 19.2 mmol/L (21.0-32.0); Chloride 105 mmol/L (98-108); Estimated Creatinine Clearance 100.16 ml/min (50-250); Glucose 176 mg/dL (70-99); Potassium 4.4 mmol/L (3.3-5.1)
[2025-01-18] MEDS: Lorazepam 2 MG/ML WCH Syringe 0.5 MG IV (06:54)
[2025-01-18] MEDS: Ipratropium 0.5 MG/2.5 ML SOLUTION INHALATION ×4 (07:00→19:44)
[2025-01-18] MEDS: Budesonide Respules 0.5 MG/2 ML AMPUL.NEB. INHALATION ×2 (07:00→19:44)
[2025-01-18] MEDS: APIXABAN 5 MG TABLET PO ×2 (08:26→21:54)
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
--- NOTE | 2025-01-18 16:44 | PCM.CONS.C ---
Assessment & Plan Assessment/Plan (1) Atrial fibrillation with rapid ventricular response: PLAN: Continue Cardizem drip. It would be reasonable to repeat a 2D echo as patient may have had rapid ventricular response for several days since last echo was done about 6 weeks ago. He presented with tachycardia and shortness of breath will be reasonable to see if he has tach induced cardiomyopathy at this time. A limited echo to assess LVEF should be adequate. If his EF is preserved then tomorrow we can add p.o. Cardizem and DC or wean off IV Cardizem. Agree with continuing Eliquis. HPI Consult Data Date of Consult: 01/18/25 HPI Narrative Reason for Consultation: A-fib with RVR HPI Narrative: MARCEL TURCIOS, is a 64 M who presents with shortness of breath and tachycardia. Patient has known history of atrial fibrillation. He states he has not been very compliant with medications in the past and the last few weeks he has been trying to be compliant. He was at [facility] with A-fib with RVR but signed out AMA and decided to come to [place] emergency room. Patient has been started on Cardizem drip and has been admitted to the PCU. He had an echo on December 09, 2024 which revealed preserved EF. [facility] Medical History (Updated 01/17/25 @ 14:[address] Jaimie Okeefe MD) Elevated troponin TAINA (acute kidney injury) High anion gap metabolic acidosis Erythrocytosis Hypoxia Pneumonia Atrial fibrillation with rapid ventricular response Acute respiratory failure with hypoxia COPD exacerbation Dyspnea PTSD (post-traumatic stress disorder) Foraminal stenosis of lumbosacral region ZAN (obstructive sleep apnea) Back pain Anxiety COPD (chronic obstructive pulmonary disease) Radiculitis of leg Lumbar canal stenosis Foraminal stenosis of lumbosacral region Back pain Anxiety COPD (chronic obstructive pulmonary disease) Obstructive sleep apnea Home Medications ?Medication ?Instructions ?Recorded ?Last Taken ?Type albuterol sulfate 1.25 mg/3 mL 1.25 mg inhalation Q4H PRN PRN 12/08/24 Unknown History solution for nebulization dyspnea budesonide-formoterol HFA 160 2 inh inhalation Q12H 12/08/24 Unknown History mcg-4.5 mcg/actuation aerosol inhaler (Breyna) magnesium oxide 400 mg (241.3 mg 400 mg PO BID 12/08/24 Unknown History magnesium) tablet fluconazole 150 mg tablet 150 mg PO QWEEK 07/23/25 Unknown History ketoconazole 2 % topical cream 1 applic topical BID 01/17/25 Unknown History Allergy/AdvReac Type Severity Reaction Status Date / Time codeine Allergy Hives Verified 12/08/24 21:09 Iodinated Contrast Media Allergy Hives Verified 12/08/24 21:09 (Iodinated Contrast Media - IV Dye) diclofenac AdvReac Swelling Verified 12/08/24 21:09 metaxalone AdvReac Swelling Verified 12/08/24 21:09 methylphenidate (From AdvReac hallucinati Verified 12/08/24 21:09 Ritalin) ons Phenylpiperazine AdvReac Other Verified 12/08/24 21:09 Antidepressant Tetracyclic Antidepressants AdvReac Other Verified 12/08/24 21:09 Tricyclic Antidepressants AdvReac Other Verified 12/08/24 21:09 and Tricy Family History Other Diabetes Hypertension Surgical History S/P epidural steroid injection Social History household members: family Smoking Status: Current every day smoker tobacco type: cigarettes and e-cigarettes alcohol intake: never substance use type: does not use Physical Exam Const alert and oriented x3 HEENT normocephalic Resp normal respiratory effort Cardio Cardio Narrative: Irregular rhythm Psych mental status grossly normal Risk Stratification Risk Stratification Applicable: No Charges/Coding Visit Charges Inpatient E&M: 30709 Init Hosp L2 Objective Data Vital Signs: Vital Signs Temp Pulse Resp BP Pulse Ox O2 Del Method O2 Flow Rate 98.1 F 113 H 14 142/86 H 98 Bi-pap 2 01/18/25 11:00 01/18/25 16:00 01/18/25 16:00 01/18/25 16:00 01/18/25 16:00 01/18/25 16:00 01/18/25 14:37 Oxygen Flow Rate (L/min) 2 Oxygen Delivery Method Bi-pap Weight: 361 lb 1.875 oz Body Mass Index (BMI) 47.6 Intake & Output: Intake and Output for Last 24 Hours 01/16/25 01/17/25 01/18/25 23:59 23:59 23:59 Intake Total 646.92 / 661.92 1215.0 / 1215.0 Output Total 120 / 120 200 / 200 Balance 526.92 / 541.92 1015.0 / 1015.0 Lab / Micro Data 01/18/25 05:31 01/18/25 05:31 Labs: Laboratory Results - last 24 hr 01/17/25 16:00: Urine Color Yellow, Urine Clarity Clear, Urine pH 5.0, Ur Specific [place] 1.020, Urine Protein 30 H, Urine Glucose (UA) Normal, Urine Ketones 150 A*, Urine Occult Blood 150 H, Urine Nitrite Negative, Urine Bilirubin Negative, Urine Urobilinogen Normal, Ur Leukocyte Esterase Negative, Urine RBC 5-10 SEEN, Urine WBC 0-5 SEEN, Ur Squamous Epith Cells 0-5 SEEN, Urine Bacteria 0 SEEN, Urine Mucus 0 SEEN 01/17/25 16:13: Troponin T Hi Sens 4Hr 17 01/18/25 05:31: WBC 11.1 H, RBC 5.24, Hgb 15.6, Hct 45.2, MCV 86.3, MCH 29.8, MCHC 34.5, RDW Std Deviation 46.3 H, RDW Coeff of [place]elope 14.6, Plt Count 198, MPV 9.3, Sodium 138, Potassium 4.4, Chloride 105, Carbon Dioxide 19.2 L, Anion Gap 14, BUN 21 H, Creatinine 1.18, Estim Creat Clear Calc 100.16, Est GFR (MDRD) Non-Af 68, BUN/Creatinine Ratio 17.6, Glucose 176 H, Calcium 9.2 Micro: Microbiology 01/17/25 20:30 Mucosa - Nasopharyngeal Coronavirus COVID-19 PCR - Final 01/17/25 20:30 Mucosa - Nasopharyngeal Respiratory Panel (PCR) - Final Cardiology Labs/Tests 01/17/25 16:00: Urine Color Yellow, Urine Clarity Clear, Urine pH 5.0, Ur Specific [place] 1.020, Urine Protein 30 H, Urine Glucose (UA) Normal, Urine Ketones 150 A*, Urine Occult Blood 150 H, Urine Nitrite Negative, Urine Bilirubin Negative, Urine Urobilinogen Normal, Ur Leukocyte Esterase Negative, Urine RBC 5-10 SEEN, Urine WBC 0-5 SEEN 01/18/25 05:31: WBC 11.1 H, RBC 5.24, Hgb 15.6, Hct 45.2, MCV 86.3, MCH 29.8, MCHC 34.5, Plt Count 198, MPV 9.3, Sodium 138, Potassium 4.4, Chloride 105, Carbon Dioxide 19.2 L, Anion Gap 14, BUN 21 H, Creatinine 1.18, Est GFR (MDRD) Non-Af 68, BUN/Creatinine Ratio 17.6, Glucose 176 H, Calcium 9.2 Rhythm: EKG: ECHO: Stress Test: Cardiac Cath: PCI: CT Surgery: Holter monitor: EPS: PPM: CXR: Chest CT Scan: Radiography Diagnostic Testing: Radiology Impression Abdomen/Pelvis CT 01/17/25 18:35 IMPRESSION: 1. Hepatomegaly with fatty infiltration. 2. Distended gallbladder without significant surrounding fat stranding to suggest acute inflammation. If indicated, this can be further evaluated with ultrasound. 3. Bilateral inguinal hernias containing fat. 4. Colonic diverticulosis without acute diverticulitis. Reading Location: [id number]
[2025-01-18] MEDS: Diltiazem 125 MG in Dextrose 5%-Water (100mL Bag) 100 ML 10 MG IV (17:16)
--- NOTE | 2025-01-18 19:20 | EKG12_ITS ---
Test Reason : CP Blood Pressure : */* mmHG Vent. Rate : 104 BPM Atrial Rate : 104 BPM P-R Int : 158 ms QRS Dur : 120 ms QT Int : 372 ms P-R-T Axes : -9 -25 14 degrees QTcB Int : 489 ms Sinus tachycardia with Premature atrial complexes Right bundle branch block T wave abnormality, consider lateral ischemia Abnormal ECG When compared with ECG of 18-Jan-2025 19:40, MANUAL COMPARISON REQUIRED DATA IS UNCONFIRMED Confirmed by JAYE MAGANA, PEGGY ([id number]), editorial assistant SONA KNIGHT ([id number]) on 01/19/2025 2:32:24 PM Referred By: Confirmed By: PEGGY CEE MD
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
[2025-01-19] VITALS (22 sets, daily range): BP systolic 103–172; BP diastolic 64–111; PULSE 69–109; RESP 14–30; TEMP 35.8–37.1; O2SAT 90–98; BMI 47.7
--- NOTE | 2025-01-19 02:15 | ECHOLC_ITS ---
Reason For Study Reason For Study: Afib, Aflutter Procedure This was a limited 2D transthoracic echocardiogram. Contrast injection was performed. Exam performed portable in patient room. Left Ventricle Normal LV size. Left ventricular systolic function is normal. The left ventricular ejection fraction is 55 %. No regional wall motion abnormalities noted. Right Ventricle Normal RV size. Normal systolic function. Great Vessels Normal aortic root. Pericardium/Pleural No pericardial effusion. Medication Diluted definity 4ml given slow IV push to enhance endocardial definition. MMode/2D Measurements & Calculations LVIDd: 6.3 cm IVSd: 0.99 cm LVIDs: 4.0 cm LVPWd: 1.1 cm FS: 36.3 % ECHO/Echo Limited w/Contrast Interpretation Summary Normal LV size. Left ventricular systolic function is normal. The left ventricular ejection fraction is 55 %. No regional wall motion abnormalities noted. Contrast injection was performed. The study was technically limited. Ordering Physician: Geneva Estrella Referring Physician: Jose David Sims Performed By: Radha Rodríguez RDCS, RVT
[2025-01-19] MEDS: Ipratropium 0.5 MG/2.5 ML SOLUTION INHALATION ×3 (07:10→18:36)
[2025-01-19] MEDS: Budesonide Respules 0.5 MG/2 ML AMPUL.NEB. INHALATION ×2 (07:10→18:37)
[2025-01-19] MEDS: APIXABAN 5 MG TABLET PO ×2 (08:45→21:32)
--- NOTE | 2025-01-19 08:48 | EKG12_ITS ---
Test Reason : CHEST DISCOMFORT Blood Pressure : */* mmHG Vent. Rate : 91 BPM Atrial Rate : * BPM P-R Int : * ms QRS Dur : 124 ms QT Int : 400 ms P-R-T Axes : * -28 107 degrees QTcB Int : 492 ms Atrial fibrillation Right bundle branch block Abnormal ECG When compared with ECG of 17-Jan-2025 12:09, MANUAL COMPARISON REQUIRED DATA IS UNCONFIRMED Confirmed by PAYAM MAGANA, SAMANTHA ([id number]), newspaper copy editor BUFFY BEARD ([id number]) on 01/22/2025 9:46:28 AM Referred By: EUGENIO Confirmed By: SAMANTHA HARE MD
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
[2025-01-19] MEDS: MELATONIN 10 MG TABLET PO (21:35)
[2025-01-20 03:00] VITALS: PULSE 56
[2025-01-20 03:42] VITALS: BP 104/60; PULSE 83; RESP 17; TEMP 35.6; O2SAT 94
[2025-01-20 05:39] VITALS: BMI 48.3
[2025-01-20] MEDS: 0.9% Saline Lock 10 ML Syringe IV (05:40)
[2025-01-20 07:15] VITALS: PULSE 72; RESP 18
[2025-01-20] MEDS: Ipratropium 0.5 MG/2.5 ML SOLUTION INHALATION ×2 (07:23→10:55)
[2025-01-20] MEDS: Budesonide Respules 0.5 MG/2 ML AMPUL.NEB. INHALATION (07:23)
[2025-01-20 10:16] VITALS: BP 130/63; PULSE 76; RESP 18; TEMP 37; O2SAT 94
[2025-01-20 10:18] VITALS: PULSE 76
[2025-01-20] MEDS: APIXABAN 5 MG TABLET PO (10:18)
[2025-01-20 11:09] VITALS: PULSE 83; RESP 19
--- NOTE | 2025-01-20 11:18 | CASEMGMT ---
MARGI JESUS NOTE: Pt verifies he has sufficient supply of Eliquis @ home, stating he has about a month supply. Dillan JAIN RN CM
--- NOTE | 2025-01-20 12:47 | DCINST_ITS ---
Discharge Instructions DC O2, CPAP, BIPAP needs Home O2 Discharge instructions: Yes Type of respiratory needs?: Oxygen Oxygen frequency: Continuous Continuous oxygen liters per minute: 2L Dressing / Incision Discharge Activity: Return to Normal Activity Weight Bearing Status: Full weight bearing Follow Up Care Test Results: Test results from this visit will be discussed in further detail at your follow- up appointment, if applicable. Discharge Plan Admission Admit Date/Time: 01/17/25 14:00 Primary Reason for Your Visit: wendy-fib Attending Provider: Roman Altman Primary Care Provider: Jose David Sims Consulting Providers: Jaimie Okeefe; Sasha Rice Discharge Orders/Prescriptions Prescriptions: New Eliquis 5 mg Tablet 5 mg PO BID Qty: 0 0RF metoprolol tartrate 50 mg Tablet 50 mg PO BID Qty: 60 0RF Continued albuterol sulfate 1.25 mg/3 mL solution for nebulization 1.25 mg inhalation Q4H PRN PRN (Reason: dyspnea) magnesium oxide 400 mg (241.3 mg magnesium) tablet 400 mg PO BID budesonide-formoterol [Breyna] 160-4.5 mcg/actuation HFA aerosol inhaler 2 inh inhalation Q12H fluconazole 150 mg tablet 150 mg PO QWEEK ketoconazole 2 % cream 1 applic topical BID Referrals / Follow Up: Jose David Sims MD [Primary Care Provider] - Within 2 Weeks Disposition Disposition (needs filled in before D/C Order can be placed): Home, Self Care
--- NOTE | 2025-01-20 13:10 | PCM.DC.SUM ---
Providers Date of Admission: 01/17/25 Date of Discharge: 01/20/25 Primary Care Physician: Dr. Jose David Sims MD Consultations 01/18/25 12:50 Consult: Cardiology Routine Consulting Provider: Sasha Rice Reason for Consult: A-fib EMERGENT Consult: No MD Notified: Yes Date Notified: 01/18/25 Time Notified: 12:50 Method of Notification: Verbal Reason For Visit: AFIB WITH RVR Diagnosis Discharge Diagnosis (1) Atrial fibrillation with rapid ventricular response: Status: Acute Code(s): I48.91 - Unspecified atrial fibrillation Medications at Discharge Home Medications albuterol sulfate 1.25 mg/3 mL solution for nebulization 1.25 mg inhalation Q4H PRN PRN dyspnea 12/08/24 budesonide-formoterol HFA 160 mcg-4.5 mcg/actuation aerosol inhaler (Breyna) 2 inh inhalation Q12H 12/08/24 magnesium oxide 400 mg (241.3 mg magnesium) tablet 400 mg PO BID 12/08/24 fluconazole 150 mg tablet 150 mg PO QWEEK 01/17/25 ketoconazole 2 % topical cream 1 applic topical BID 01/17/25 apixaban 5 mg tablet (Eliquis) 5 mg PO BID #0 tabs 01/20/25 metoprolol tartrate 50 mg tablet 50 mg PO BID #60 tabs 01/20/25 Weight / BMI Weight Weight: 165.5 kg Body Mass Index (BMI) 48.3 ABG / Lab / Microbiology Data 01/18/25 05:31 01/18/25 05:31 Microbiology: Microbiology 01/17/25 16:00 Urine, Clean Catch Urine Culture - Final Mixed Gram Positive Organisms 01/19/25 07:35 Stool Enteric Bacteriology - Final 01/19/25 07:35 Stool Clostridioides difficile (PCR) - Final 01/17/25 20:30 Mucosa - Nasopharyngeal Coronavirus COVID-19 PCR - Final 01/17/25 20:30 Mucosa - Nasopharyngeal Respiratory Panel (PCR) - Final Radiography Diagnostic Testing: Radiology Impression Echocardiogram 01/19/25 02:15 Interpretation Summary Normal LV size. Left ventricular systolic function is normal. The left ventricular ejection fraction is 55 %. No regional wall motion abnormalities noted. Contrast injection was performed. The study was technically limited. Ordering Physician: Geneva Estrella Referring Physician: Jose David Sims Performed By: Radha Rodríguez, SUSAN, RVT D/C Instructions Weight Bearing Status: Full weight bearing DC O2, CPAP, BIPAP Needs Home O2 Discharge instructions: Yes Type of respiratory needs?: Oxygen Oxygen frequency: Continuous Continuous oxygen liters per minute: 2L DC home with Oxygen: Yes Home O2 MD Review: I have reviewed the oxygen testing, and the patient qualifies for home oxygen equipment and portability. The patient is mobile in the home and the community. Meaningful Use Info Meaningful Use Meaningful Use Diagnoses (Choose all that apply): None applicable Discharge Plan Admission Admit Date/Time: 01/17/25 14:00 Primary Reason for Your Visit: a-fib Attending Provider: Roman Altman Primary Care Provider: Jose David Sims Consulting Providers: Jaimie Okeefe; Sasha Rice Discharge Orders/Prescriptions Prescriptions: New Eliquis 5 mg Tablet 5 mg PO BID Qty: 0 0RF metoprolol tartrate 50 mg Tablet 50 mg PO BID Qty: 60 0RF Continued albuterol sulfate 1.25 mg/3 mL solution for nebulization 1.25 mg inhalation Q4H PRN PRN (Reason: dyspnea) magnesium oxide 400 mg (241.3 mg magnesium) tablet 400 mg PO BID budesonide-formoterol [Breyna] 160-4.5 mcg/actuation HFA aerosol inhaler 2 inh inhalation Q12H fluconazole 150 mg tablet 150 mg PO QWEEK ketoconazole 2 % cream 1 applic topical BID Referrals / Follow Up: Jose David Sims MD [Primary Care Provider] - Within 2 Weeks Disposition Disposition (needs filled in before D/C Order can be placed): Home, Self Care
--- NOTE | 2025-01-20 13:48 | NURSING ---
This RN went in to take patient's IV out, as patient just had a discharge order placed, and was threatening to pull out his own IV and walk out to [employer]. Patient's IV removed without any issue. 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 Patient stated that as soon as the IV was taken out, he was going to walk out of here and his son was waiting on him outside. This RN asked patient about home oxygen testing, patient refused. This RN did confirm with the patient that they had access to oxygen in the home to use with his bipap, to which the patient stated yes. Patient refused to let this RN take another set of vitals prior to discharge. Patient was ranting about the medication that was prescribed and given to him here in the hosptial by the MD. Patint was stating that it can cause depression and suicidal thoughts and he was already depressed and had PTSD. Patient stated that he did not want his discharge paperwork and was not going to follow up with anything that this hospital said. Patient's home belongings, including bipap, back up in discharge bag and patient taken via wheelchair to discharge area.
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
== END 2025-01-20 13:44 | disposition home or self-care (01) | DRG 309 ==
LOC: ED 10:56 → PCU 13:59
PROVIDERS: Admitting Provider Internal Medicine; Emergency Provider Surgery; PCP Family Medicine; Visit Provider Internal Medicine
DX: I48.0 Paroxysmal atrial fibrillation (principal); J96.11 Chronic respiratory failure with hypoxia; Z68.42 Body mass index [BMI] 45.0-49.9, adult; Z99.81 Dependence on supplemental oxygen; F17.210 Nicotine dependence, cigarettes, uncomplicated; F17.290 Nicotine dependence, other tobacco product, uncomplicated; G47.33 Obstructive sleep apnea (adult) (pediatric); E66.813 Obesity, class 3; F43.12 Post-traumatic stress disorder, chronic; R39.11 Hesitancy of micturition; R39.15 Urgency of urination; Z91.148 Patient's other noncompliance with medication regimen for other reason; Z79.01 Long term (current) use of anticoagulants; Z79.51 Long term (current) use of inhaled steroids; Z79.899 Other long term (current) drug therapy
CPT/HCPCS: 36415; 71045; 74018; 74176; 80048; 81001; 82803; 83735; 83880; 84484; 85025; 85027; 85379; 87086; 87088; 87493; 87506; 87633; 87635; 93005; 93308; 94640; 94668; 97161; 97166; 99285; Q9957; A4216; C8924; J0153

== ENCOUNTER 2025-05-17 07:24 | Emergency (ER) | payer MEDICARE, SELFPAY ==
[2025-05-17] VITALS (9 sets, daily range): BP systolic 105–171; BP diastolic 56–84; PULSE 61–92; RESP 16–32; TEMP 35.9–36.6; O2SAT 94–99; BMI 47.1
--- NOTE | 2025-05-17 08:03 | RAD_ITS ---
PROCEDURE: CHEST 1 VIEW (PORTABLE) 05/17/2025 REASON FOR EXAM: SHORTNESS OF BREATH TECHNIQUE: 2 AP portable views COMPARISON: None FINDINGS: Hardware: EKG leads overlie the chest Heart: There is borderline cardiomegaly which I suspect is positional are due to technique Lungs: The lungs are clear. Bones: Degenerative changes are identified within the thoracic spine. RAD/Chest 1 View (Portable) IMPRESSION: No acute pulmonary process Reading Location: [id number]
--- NOTE | 2025-05-17 08:04 | ED.VIS.DYS ---
HPI History of Present Illness Chief Complaint: Shortness of Breath Narrative Narrative: 64-year-old male past medical history of COPD, on oxygen of 2 to 2-1/2 L at home presents via EMS with shortness of breath and increasing dyspnea. He states that while he is a smoker, he does not believe in taking a bunch of medications. He has albuterol nebulizers at home which he does not take. Over the last few months he has been inhaling his Symbicort which seemed to help him. He independently called EMS because of increasing shortness of breath. He states has been for the last 2 years that he has been having problems. No fevers or chills, no exacerbating or alleviating factors. He feels that if he is ever admitted to the hospital, that he would never get released. He presents today wanting relief from his shortness of breath. [facility] Medical History Elevated troponin TAINA (acute kidney injury) High anion gap metabolic acidosis Erythrocytosis Hypoxia Pneumonia Atrial fibrillation with rapid ventricular response Acute respiratory failure with hypoxia COPD exacerbation Dyspnea PTSD (post-traumatic stress disorder) Foraminal stenosis of lumbosacral region ZAN (obstructive sleep apnea) Back pain Anxiety COPD (chronic obstructive pulmonary disease) Radiculitis of leg Lumbar canal stenosis Foraminal stenosis of lumbosacral region Back pain Anxiety COPD (chronic obstructive pulmonary disease) Obstructive sleep apnea Home Medications ?Medication ?Instructions ?Recorded ?Last Taken ?Type albuterol sulfate 1.25 mg/3 mL 1.25 mg inhalation Q4H PRN PRN 12/08/24 Unknown History solution for nebulization dyspnea budesonide-formoterol HFA 160 2 inh inhalation Q12H 12/08/24 Unknown History mcg-4.5 mcg/actuation aerosol inhaler (Breyna) magnesium oxide 400 mg (241.3 mg 400 mg PO BID 12/08/24 Unknown History magnesium) tablet fluconazole 150 mg tablet 150 mg PO QWEEK 01/17/25 Unknown History ketoconazole 2 % topical cream 1 applic topical BID 01/17/25 Unknown History apixaban 5 mg tablet (Eliquis) 5 mg PO BID #0 tabs 01/20/25 Unknown Rx metoprolol tartrate 50 mg tablet 50 mg PO BID #60 tabs 01/20/25 Unknown Rx prednisone 20 mg tablet 40 mg (2 x 20 mg) PO DAILY 7 days 05/17/25 Unknown Rx #14 tabs Allergy/AdvReac Type Severity Reaction Status Date / Time codeine Allergy Hives Verified 05/17/25 07:28 Iodinated Contrast Media Allergy Hives Verified 05/17/25 07:28 (Iodinated Contrast Media - IV Dye) diclofenac AdvReac Swelling Verified 05/17/25 07:28 metaxalone AdvReac Swelling Verified 05/17/25 07:28 methylphenidate (From AdvReac hallucinati Verified 05/17/25 07:28 Ritalin) ons Phenylpiperazine AdvReac Other Verified 05/17/25 07:28 Antidepressant Tetracyclic Antidepressants AdvReac Other Verified 05/17/25 07:28 Tricyclic Antidepressants AdvReac Other Verified 05/17/25 07:28 and Tricy Family History Other Diabetes Hypertension Surgical History S/P epidural steroid injection Social History household members: family Smoking Status: Current every day smoker tobacco type: cigarettes alcohol intake: never substance use type: does not use ROS ROS ED ROS Narrative Review of systems positive for increasing shortness of breath for 2 years. Noncompliant with medications. Does not see pulmonology. No fevers or chills. Smoker. Denies other symptoms. EXAM Physical Exam Narrative Exam Narrative: Afebrile. Vital signs noted. Nontoxic-appearing. Cardiovascular examination reveals regular rate and rhythm. Respiratory examination shows mild tachypnea. Decreased air movement bilaterally. Abdomen soft, nontender, without guarding or rebound. Neurological examination nonfocal, nonlateralizing. Const Vital Signs: 05/17/25 07:29 05/17/25 07:37 05/17/25 08:24 Temperature 96.7 F L Temperature Source Axillary Pulse Rate 92 Respiratory Rate 32 H Respiratory Effort Short of Breath Accessory Muscle Use Nasal Flaring Pursed Lip Respiratory Depth Shallow Respiratory Pattern Tachypnea Blood Pressure 168/70 H Blood Pressure Mean 102 Pulse Ox 94 96 Oxygen Delivery Method Nasal Cannula Nasal Cannula Nasal Cannula Oxygen Flow Rate (L/min) 2 2 2 05/17/25 08:24 05/17/25 08:48 05/17/25 09:00 Temperature 97.8 F Temperature Source Axillary Pulse Rate 91 86 Respiratory Rate 28 H 32 H Respiratory Effort Respiratory Depth Respiratory Pattern Tachypnea Blood Pressure 148/84 H 105/59 L Blood Pressure Mean 105 74 Pulse Ox 96 Oxygen Delivery Method Nasal Cannula Oxygen Flow Rate (L/min) 2 05/17/25 10:00 05/17/25 11:00 05/17/25 12:00 Temperature Temperature Source Pulse Rate 89 63 65 Respiratory Rate 17 31 H 16 Respiratory Effort Respiratory Depth Respiratory Pattern Blood Pressure 171/57 H 125/56 H 131/60 H Blood Pressure Mean 95 79 83 Pulse Ox 96 96 96 Oxygen Delivery Method Room Air Nasal Cannula Nasal Cannula Oxygen Flow Rate (L/min) 2 2 05/17/25 12:47 Temperature 98 F Temperature Source Pulse Rate 61 Respiratory Rate 16 Respiratory Effort Respiratory Depth Respiratory Pattern Blood Pressure 131/60 H Blood Pressure Mean 83 Pulse Ox 98 Oxygen Delivery Method Oxygen Flow Rate (L/min) MDM MDM MDM Narrative Medical decision making narrative: Differential diagnosis includes but not limited to COPD exacerbation versus pneumonia versus pneumothorax versus CHF. Patient does not have history of CHF. I do not feel BNP is indicated. He is satting 94% on his nasal cannula. I had a lengthy discussion with the patient. Additionally, he has past medical history of anxiety. He is requesting Ativan. I do feel this might be contributing to his dyspnea and tachypnea. While it may suppress his respiratory drive, he is on oxygen, and he states that his PTSD is extreme when he is around ambulances and triage. He was administered 1 mg. He is agreeable to an aerosolized treatment here, but states he does not like to use albuterol at long-term because he thinks it has psychological effects. He will also be administered methylprednisolone 60 mg intravenously. The goal is to get him breathing better currently and reassessment. EKG was obtained and interpreted by myself independently as normal sinus rhythm with PVC at 88 bpm, no acute ST changes. No STEMI. I reviewed his laboratory work and he has slight leukocytosis of 11.4 which I think is nonspecific, hemoglobin 15.0, hematocrit 44.3, platelet count normal at 224. BMP is grossly normal except for potassium of 3.0 which was replaced orally. BUN of 16 and creatinine 1.55, glucose 186. Anion gap is slightly elevated at 17 but I think this is from a low CO2 of 19.2. Chest x-ray 1 view interpreted by myself independently shows no pneumonia or pneumothorax. I do not feel antibiotics are indicated. I reviewed the radiology report which confirms my independent interpretation. Upon repeat examination, patient states he is feeling improved. I do feel he would benefit from a prednisone burst for the next 7 days for COPD exacerbation. Patient stated he wanted to discuss with his primary care provider something for anxiety, but admits that he has had a problem with Ativan in the past. He was told that any prescription medication for anxiety should be started and titrated by his primary care provider. At this point in time, I do feel he can be discharged to follow-up. I do not feel he requires admission to the hospital for a COPD flare. He has BiPAP at home. He was given a prescription for prednisone burst. Additionally, in discussion with social work/case management, they would like him to have a palliative care consult by the inpatient provider. This will be performed prior to discharge. Disposition remains discharged home in stable condition. History & Record Review Discussion w/independent historian: Patient Lab Data Attestation: I reviewed the patient's lab results. Labs: Laboratory Results - last 24 hr 05/17/25 08:25 WBC 11.4 H RBC 5.17 Hgb 15.0 Hct 44.3 MCV 85.7 MCH 29.0 MCHC 33.9 RDW Std Deviation 44.3 H RDW Coeff of Penelope 14.1 Plt Count 224 MPV 9.1 Immature Gran % (Auto) 0.500 Neut % (Auto) 75.5 H Lymph % (Auto) 15.6 L Rapides % (Auto) 6.7 Eos % (Auto) 1.2 Baso % (Auto) 0.5 Absolute Neuts (auto) 8.6 H Absolute Lymphs (auto) 1.77 Nucleated RBC % 0 Sodium 136 Potassium 3.0 L Chloride 100 Carbon Dioxide 19.2 L Anion Gap 17 H BUN 16 Creatinine 1.55 H Estim Creat Clear Calc 75.77 Est GFR (MDRD) Non-Af 49 L BUN/Creatinine Ratio 10.3 Glucose 186 H Calcium 9.1 Radiography Chest X-Ray - ED: 1 View, Read by ED Physician, Read by Radiologist and No Acute Disease Diagnostic Testing: Clinical Impression(s) from Imaging Studies Chest X-Ray 05/17/25 08:03 IMPRESSION: No acute pulmonary process Reading Location: [facility] Management Discussion w/another healthcare provider: chute worker/Case management Discharge Plan Triage Chief Complaint: Shortness of Breath ED Provider: Miles Marcelo Dx/Rx/DC Orders Clinical Impression: COPD exacerbation, Dyspnea, Hypokalemia, Anxiety Instructions: ED Anxiety Reaction, ED COPD Flare, ED Dyspnea, ED Hypokalemia Prescriptions: New prednisone 20 mg tablet 40 mg PO DAILY 7 Days Qty: 14 0RF No Action albuterol sulfate 1.25 mg/3 mL solution for nebulization 1.25 mg inhalation Q4H PRN PRN (Reason: dyspnea) magnesium oxide 400 mg (241.3 mg magnesium) tablet 400 mg PO BID budesonide-formoterol [Breyna] 160-4.5 mcg/actuation HFA aerosol inhaler 2 inh inhalation Q12H fluconazole 150 mg tablet 150 mg PO QWEEK ketoconazole 2 % cream 1 applic topical BID Eliquis 5 mg Tablet 5 mg PO BID Qty: 0 0RF metoprolol tartrate 50 mg Tablet 50 mg PO BID Qty: 60 0RF Primary Care Provider: Care Physician,No Primary Referrals: Jose David Sims MD [Med Staff - Garbage Truck Dispatcher, [facility]] - 3-5 Days if not improving Activity Restrictions/Additional Instructions: Take prednisone as directed for the next week. Use your oxygen and use your albuterol that you have at home through your nebulizer machine. Use an aerosolized treatment every 4-6 hours as needed for shortness of breath. Talk to your doctor regarding hydroxyzine pamoate for anxiety. Print Language: French Disposition Disposition: Home, Self Care Discharge Date/Time: 05/17/25 13:37
[2025-05-17 08:31] LABS: Hematocrit 44.3 % (40-54); Hemoglobin 15.0 g/dL (13.0-16.5); Immature Granulocytes Count 0.060 X10^3/uL (0.0-0.0); Mean Corp Hgb Conc 33.9 g/dL (32-36); Mean Corpuscular Volume 85.7 fL (80-94); Mean Platelet Vol. 9.1 fl (6.2-12.0); NRBC Flagged by Analyzer 0 % (0-5); Platelet Count 224 K/mm3 (150-450); RBC Distribution Width CV 14.1 % (11.6-14.6); RBC Distribution Width SD 44.3 fl (35.1-43.9); Red Blood Count 5.17 M/mm3 (4.6-6.2); White Blood Count 11.4 K/mm3 (4.4-11.0)
[2025-05-17 08:50] LABS: Anion Gap 17 (5-15); BUN 16 mg/dL (4-19); BUN/Creat Ratio 10.3 RATIO (10-20); Calcium,Total 9.1 mg/dL (7.6-11.0); Carbon Dioxide 19.2 mmol/L (21.0-32.0); Chloride 100 mmol/L (98-108); Estimated Creatinine Clearance 75.77 ml/min (50-250); Glucose 186 mg/dL (70-99); Potassium 3.0 mmol/L (3.3-5.1)
[2025-05-17] MEDS: Potassium Chloride Oral Tablet 20 MEQ 40 MEQ PO (09:49)
--- NOTE | 2025-05-17 12:46 | PCM.CONS.P ---
[facility] Medical History Elevated troponin TAINA (acute kidney injury) High anion gap metabolic acidosis Erythrocytosis Hypoxia Pneumonia Atrial fibrillation with rapid ventricular response Acute respiratory failure with hypoxia COPD exacerbation Dyspnea PTSD (post-traumatic stress disorder) Foraminal stenosis of lumbosacral region ZAN (obstructive sleep apnea) Back pain Anxiety COPD (chronic obstructive pulmonary disease) Radiculitis of leg Lumbar canal stenosis Foraminal stenosis of lumbosacral region Back pain Anxiety COPD (chronic obstructive pulmonary disease) Obstructive sleep apnea Home Medications ?Medication ?Instructions ?Recorded ?Last Taken ?Type albuterol sulfate 1.25 mg/3 mL 1.25 mg inhalation Q4H PRN PRN 12/08/24 Unknown History solution for nebulization dyspnea budesonide-formoterol HFA 160 2 inh inhalation Q12H 12/08/24 Unknown History mcg-4.5 mcg/actuation aerosol inhaler (Breyna) magnesium oxide 400 mg (241.3 mg 400 mg PO BID 12/08/24 Unknown History magnesium) tablet fluconazole 150 mg tablet 150 mg PO QWEEK 01/17/25 Unknown History ketoconazole 2 % topical cream 1 applic topical BID 01/17/25 Unknown History apixaban 5 mg tablet (Eliquis) 5 mg PO BID #0 tabs 01/20/25 Unknown Rx metoprolol tartrate 50 mg tablet 50 mg PO BID #60 tabs 01/20/25 Unknown Rx prednisone 20 mg tablet 40 mg (2 x 20 mg) PO DAILY 7 days 05/17/25 Unknown Rx #14 tabs Allergy/AdvReac Type Severity Reaction Status Date / Time codeine Allergy Hives Verified 05/17/25 07:28 Iodinated Contrast Media Allergy Hives Verified 05/17/25 07:28 (Iodinated Contrast Media - IV Dye) diclofenac AdvReac Swelling Verified 05/17/25 07:28 metaxalone AdvReac Swelling Verified 05/17/25 07:28 methylphenidate (From AdvReac hallucinati Verified 05/17/25 07:28 Ritalin) ons Phenylpiperazine AdvReac Other Verified 05/17/25 07:28 Antidepressant Tetracyclic Antidepressants AdvReac Other Verified 05/17/25 07:28 Tricyclic Antidepressants AdvReac Other Verified 05/17/25 07:28 and Tricy Family History Other Diabetes Hypertension Surgical History S/P epidural steroid injection Social History household members: family Smoking Status: Current every day smoker tobacco type: cigarettes alcohol intake: never substance use type: does not use ROS Constitutional Constitutional: Reports systems reviewed and no addt'l complaints, except as documented Eyes Eyes: Reports systems reviewed and no addt'l complaints, except as documented ENT HEENT: Reports systems reviewed and no addt'l complaints, except as documented Cardiovascular Cardiovascular: Reports dyspnea at rest and dyspnea on exertion Respiratory/Chest Respiratory/Chest: Reports portable oxygen @ home, shortness of breath at rest, shortness of breath with exertion and wheezing Gastrointestinal Gastrointestinal: Reports systems reviewed and no addt'l complaints, except as documented Genitourinary Genitourinary: Reports systems reviewed and no addt'l complaints, except as documented Musculoskeletal Musculoskeletal: Reports systems reviewed and no addt'l complaints, except as documented Integumentary Integumentary: Reports systems reviewed and no addt'l complaints, except as documented Neurologic Neurologic: Reports systems reviewed and no addt'l complaints, except as documented Psychiatric Psychiatric: Reports anxiety and depression Endocrine Endocrinology: Reports systems reviewed and no addt'l complaints, except as documented Hematologic/Lymphatic Hematologic/Lymphatic: Reports systems reviewed and no addt'l complaints, except as documented Allergic/Immunologic Allergic/Immunologic: Reports systems reviewed and no addt'l complaints, except as documented Physical Exam Const alert and oriented x3 General Appearance: cooperative HEENT normocephalic Eyes PERRL Lymph Lymphatic: no lymphadenopathy noted Resp Effort and Inspection: tachypneic Auscultation: wheezes and diminished lung sounds Cardio Peripheral Pulses: pulses 2+ throughout GI soft to palpation and non-tender Extremity normal capillary refill Skin no rashes or lesions noted Neuro CN's II-XII intact bilaterally, no focal motor deficits, no sensory deficits noted and deep tendon reflexes 2+ bilaterally Psych affect normal HPI Current admission Current Code Status: DNRCC-A no intubation Associated Diagnosis: dyspnea Consult Data Date of Consult: 05/17/25 Location of consult: ER Reason for referral: Goals of care Referral source: CM/W/ER physician Palliative care diagnosis (Summary list): COPD Palliative care services/treatment (Accepted, as consult): Accepted Case discussed with referring provider: Patient is not wanting to make any decisions today and wants to speak with family first. HPI Narrative HPI Narrative: PAIN ASSESSMENT denies Prior to meeting with the patient at bedside I reviewed documentation from this admission and previous admissions, labs and radiological studies. I then met with the patient to him, in his ED room. I increased myself and the concept of palliative care and she voluntarily excepted services. Since this patient is currently considered an outpatient, palliative care assessment and recommendations as a courtesy. Jesus is a pleasant 64-year-old male. He has past medical history significant for CKD, COPD on home O2, anxiety with depression, atrial fibrillation with RVR, class III obesity, PTSD, current smoker. Presented to the emergency department complaining of shortness of breath. He is home O2 dependent. He is a current everyday smoker. And stated that when he came to the emergency department he did not think that he would be going home because he felt that he was that ill He has since slightly improved since arrival. He does acknowledge that he has significant anxiety that may be a contributing factor. We did discuss his goals of care going forward in which she states that he is a DNR CCA with no intubation and that he is pretty certain that he does not have much time left. We discussed what his goals would be going forward and whether or not he would like to continue coming back to the hospital or if he would like to focus on more comfort care. We then discussed the differences between hospice and palliative care in which she did state understanding. I did ask him if he felt like he had a preference he stated that he would like to discuss the options going forward with his family, prior to making a decision. He did have good insight into how family will be involved once he does make a decision and definitely feels that it is a family decision. I did state agreement particularly if he is hoping to remain home which she did state acknowledgment. During my assessment I was able to observe him speaking in 3-4 word sentences after he utilized the urinal and standing. It did take him upwards of 2 minutes to recover. I do recommend, at the very least, outpatient palliative care or hospice pending patient decision. I did reach out to social work associate Jessica and requested that they provide the patient with a list of agencies for both palliative and hospice care to assist him in making decisions going forward. All questions to them had were answered. Per ED physician: 64-year-old male past medical history of COPD, on oxygen of 2 to 2-1/2 L at home presents via EMS with shortness of breath and increasing dyspnea. He states that while he is a smoker, he does not believe in taking a bunch of medications. He has albuterol nebulizers at home which he does not take. Over the last few months he has been inhaling his Symbicort which seemed to help him. He independently called EMS because of increasing shortness of breath. He states has been for the last 2 years that he has been having problems. No fevers or chills, no exacerbating or alleviating factors. He feels that if he is ever admitted to the hospital, that he would never get released. He presents today wanting relief from his shortness of breath. Palliative Assessment Advanced Directive - Current Admission Advance Directive: Advance Directive ON ADMISSION - REFERENCE Do you have a Healthcare No 05/17/25 07:29 Living Will? Do you have a Healthcare Power No 05/17/25 07:29 of Manager Sound? Do You Want Additional Declined 05/17/25 07:29 Information on Advanced Directives or Healthcare Proxy/DPOA comments: son Psychosocial/Spiritual Information Living situation/Marital status: [place] Geographic location: [place] Supports: Family Lutheran/Betzaida or spiritual preference: Spiritual but not islam Spiritual distress: Denies Prior functional status: Lives independently and able to provide his own care, at this time. Assistive devices at home: Home O2 Information about the patient as a person: Patient used to enjoy traveling and [facility] Symptoms Palliative performance scale: 50% Palliative prognostic index: 7.0 Dyspnea symptoms: Moderate Depression symptoms: Moderate Fatigue symptoms: Moderate Weakness symptoms: Mild Confusion symptoms: None Objective Data Objective Data Vital Signs: Vital Signs Temp Pulse Resp BP Pulse Ox O2 Del Method O2 Flow Rate 97.8 F 65 16 131/60 H 96 Nasal Cannula 2 05/17/25 08:48 05/17/25 12:00 05/17/25 12:00 05/17/25 12:00 05/17/25 12:00 05/17/25 12:00 05/17/25 12:00 Oxygen Flow Rate (L/min) 2 Oxygen Delivery Method Nasal Cannula Weight: 357 lb 2.382 oz Body Mass Index (BMI) 47.1 Lab / Micro Data Attestation: I reviewed the patient's lab results. Lab results narrative: Creatinine is slightly more elevated than baseline. 05/17/25 08:25 05/17/25 08:25 Labs: Laboratory Results - last 24 hr 05/17/25 08:25: WBC 11.4 H, RBC 5.17, Hgb 15.0, Hct 44.3, MCV 85.7, MCH 29.0, MCHC 33.9, RDW Std Deviation 44.3 H, RDW Coeff of Penelope 14.1, Plt Count 224, MPV 9.1, Immature Gran % (Auto) 0.500, Neut % (Auto) 75.5 H, Lymph % (Auto) 15.6 L, Castro % (Auto) 6.7, Eos % (Auto) 1.2, Baso % (Auto) 0.5, Absolute Neuts (auto) 8.6 H, Absolute Lymphs (auto) 1.77, Nucleated RBC % 0, Sodium 136, Potassium 3.0 L, Chloride 100, Carbon Dioxide 19.2 L, Anion Gap 17 H, BUN 16, Creatinine 1.55 H, Estim Creat Clear Calc 75.77, Est GFR (MDRD) Non-Af 49 L, BUN/Creatinine Ratio 10.3, Glucose 186 H, Calcium 9.1 Radiography Diagnostic Testing: Radiology Impression Chest X-Ray 05/17/25 08:03 IMPRESSION: No acute pulmonary process Reading Location: [facility] Impressions & Recommendations Patient & Family Issues discussed with the patient and family: Goals of care going forward Patient goal: Patient would like to return home and discuss hospice versus palliative care with family Family goal: Family at not available Ethical & Legal Ethical and legal: None Impressions Impressions: Patient would benefit from palliative care Recommentation Palliative recommendations: Pain upon patient's goals of care going forward he would benefit from either hospice or palliative care on an outpatient basis. Encouter Achieved as a result of this Palliative Care Encounter: [ [id number] ] minutes were spent in total for this visit which consisted, primarily of counseling and education dealing with the complex and emotionally intense issues of symptom management and palliative care in the setting of serious and potentially life-threatening illness. Review of documentation, labs and radiological studies. ?Patient/family had the opportunity to ask questions Plan (1) Goals of care, counseling/discussion: (2) Palliative care encounter: PLAN: Plan *Medical management per primary team *Goals of care discussion *CODE STATUS discussion in which he endorsed DNR CCA no intubation *Discussion about hospice versus palliative care *Recommendations of outpatient palliative care or hospice *Provide list of palliative care and hospice agencies available to the patient
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
== END 2025-05-17 13:37 | disposition home or self-care (01) ==
PROVIDERS: Emergency Provider Emergency Medicine; Visit Provider Emergency Medicine
DX: J44.1 Chronic obstructive pulmonary disease with (acute) exacerbation (principal); I48.91 Unspecified atrial fibrillation; E87.6 Hypokalemia; F41.9 Anxiety disorder, unspecified; F17.210 Nicotine dependence, cigarettes, uncomplicated; Z99.81 Dependence on supplemental oxygen; Z79.01 Long term (current) use of anticoagulants; Z79.51 Long term (current) use of inhaled steroids; Z79.899 Other long term (current) drug therapy
CPT/HCPCS: 71045; 80048; 85025; 93005; 94640; 99285; A4216

== ENCOUNTER 2025-05-20 08:21 | Emergency (ER) | payer MEDICARE, SELFPAY ==
[2025-05-20 08:22] VITALS: BP 161/136; PULSE 171; RESP 21; TEMP 36.6; O2SAT 97; BMI 47.1
--- NOTE | 2025-05-20 08:33 | EX.ED.DYSGE1 ---
HPI History of Present Illness Chief Complaint: Palpitations Narrative Narrative: I just signed up to see the patient starting my shift. I was told by nursing that the patient left. I did not speak or see the patient. [facility] Medical History Elevated troponin TAINA (acute kidney injury) High anion gap metabolic acidosis Erythrocytosis Hypoxia Pneumonia Atrial fibrillation with rapid ventricular response Acute respiratory failure with hypoxia COPD exacerbation Dyspnea PTSD (post-traumatic stress disorder) Foraminal stenosis of lumbosacral region ZAN (obstructive sleep apnea) Back pain Anxiety COPD (chronic obstructive pulmonary disease) Radiculitis of leg Lumbar canal stenosis Foraminal stenosis of lumbosacral region Back pain Anxiety COPD (chronic obstructive pulmonary disease) Obstructive sleep apnea Home Medications ?Medication ?Instructions ?Recorded ?Last Taken ?Type albuterol sulfate 1.25 mg/3 mL 1.25 mg inhalation Q4H PRN PRN 12/08/24 Unknown History solution for nebulization dyspnea budesonide-formoterol HFA 160 2 inh inhalation Q12H 12/08/24 Unknown History mcg-4.5 mcg/actuation aerosol inhaler (Breyna) magnesium oxide 400 mg (241.3 mg 400 mg PO BID 12/08/24 Unknown History magnesium) tablet fluconazole 150 mg tablet 150 mg PO QWEEK 01/17/25 Unknown History ketoconazole 2 % topical cream 1 applic topical BID 01/17/25 Unknown History apixaban 5 mg tablet (Eliquis) 5 mg PO BID #0 tabs 01/20/25 Unknown Rx metoprolol tartrate 50 mg tablet 50 mg PO BID #60 tabs 01/20/25 Unknown Rx prednisone 20 mg tablet 40 mg (2 x 20 mg) PO DAILY 7 days 05/17/25 Unknown Rx #14 tabs Allergy/AdvReac Type Severity Reaction Status Date / Time codeine Allergy Hives Verified 05/17/25 07:28 Iodinated Contrast Media Allergy Hives Verified 05/17/25 07:28 (Iodinated Contrast Media - IV Dye) diclofenac AdvReac Swelling Verified 05/17/25 07:28 metaxalone AdvReac Swelling Verified 05/17/25 07:28 methylphenidate (From AdvReac hallucinati Verified 05/17/25 07:28 Ritalin) ons Phenylpiperazine AdvReac Other Verified 05/17/25 07:28 Antidepressant Tetracyclic Antidepressants AdvReac Other Verified 05/17/25 07:28 Tricyclic Antidepressants AdvReac Other Verified 05/17/25 07:28 and Tricy Family History Other Diabetes Hypertension Surgical History S/P epidural steroid injection Social History household members: family Smoking Status: Current every day smoker tobacco type: cigarettes alcohol intake: never substance use type: does not use EXAM Physical Exam Const Vital Signs: 05/20/25 08:22 Temperature 97.8 F Temperature Source Oral Pulse Rate 171 H Respiratory Rate 21 H Blood Pressure 161/136 H Blood Pressure Mean 144 Pulse Ox 97 Oxygen Delivery Method Nasal Cannula Oxygen Flow Rate (L/min) 4 Discharge Plan Triage Chief Complaint: Palpitations ED Provider: Jose Vallejo Dx/Rx/DC Orders Prescriptions: No Action albuterol sulfate 1.25 mg/3 mL solution for nebulization 1.25 mg inhalation Q4H PRN PRN (Reason: dyspnea) magnesium oxide 400 mg (241.3 mg magnesium) tablet 400 mg PO BID budesonide-formoterol [Breyna] 160-4.5 mcg/actuation HFA aerosol inhaler 2 inh inhalation Q12H prednisone 20 mg tablet 40 mg PO DAILY 7 Days Qty: 14 0RF fluconazole 150 mg tablet 150 mg PO QWEEK ketoconazole 2 % cream 1 applic topical BID Eliquis 5 mg Tablet 5 mg PO BID Qty: 0 0RF metoprolol tartrate 50 mg Tablet 50 mg PO BID Qty: 60 0RF Primary Care Provider: Care Physician,No Primary Referrals: Care Physician,No Primary [Primary Care Provider, Medical] Print Language: Yoruba
--- NOTE | 2025-05-20 08:37 | ED.RN ---
PT wanted to call family and leave. PT was put in a wheelchair and wheeled to the entrance. Pt is aware of the possibilities to leaving with a HR so high and BP so high.
--- OUTSIDE RECORDS SUMMARY | 2025-05-20 09:15 | XMS RPT_ITS | CCD ---
Author Organization [facility] Care Team Providers Care Outdoor Studies Director Name Role Phone KENA, CECILIA T Unavailable Unavailable KENA, CECILIA T Unavailable Unavailable KENA, CECILIA T Unavailable Unavailable KENA, CECILIA T Unavailable Unavailable Care Physician, No Primary Primary Care Provider Unavailable Dr. Clark Lerma Attending Provider Dr. Bertram Yi Emergency Provider Dr. Rod Castellanos Admit Provider [phone] Rod Castellanos Other Provider [phone] Clark Lerma Other Provider Dr. Jose David Majano Other Provider Dr. Jose David Majano Attending Provider Dr. Jose David Sims MD Primary Care Provider Dr. Jose David Sims MD Attending Provider [phone] Jose David Sims MD Referring Provider [phone] Shelbie Guaman DO Emergency Provider [phone] Delvis MAGANA, Dr. Mis Cartagena Admit Provider [...] Rajni MAGANA, Dr. Molina Attending Provider Unavaila rod Burgos DO, Dr. Hartley Attending Provider Delvis MAGANA, Dr. Mis Cartagena Other Provider PHYSICIAN, NONE Primary Care Physician [facility] Dr. Garcia Emergency Provider Maldonado MAGANA, Dr. Etienne Admit Provider Maldonado MAGANA, Dr. Etienne Attending Provider PHYSICIAN, NONE Primary Care Unavailable RONDA MAGANA, DR HATHAWAY Attending Unavailable Maldonado MAGANA, Dr. Etienne Other Provider Agapito WARE, Dr. Owens Attending Provider Krystal MAGANA, Dr. Baez Other Provider Agapito WARE, Dr. Owens Other Provider Krystal MAGANA, Dr. Baez Attending Provider Florentin MAGANA, Dr. Rodas Attending Provider RONDA MAGANA, DR HATHAWAY Consulting Unavailable [facility] , ANUP Attending Unavailable PHYSICIAN, NONE Primary Care Unavailable Sims, Jose David Primary Care Unavailable Koram, Mis Mitzi Admitting Unavailable Koram, Mis Mitzi Referring Unavailable Koram, Mis Mitzi Attending Unavailable Jesse Urban Consulting Unavailable Sims, Jose David Primary Care Unavailable Jaimie Okeefe Consulting Unavailable Michelle Altman Attending Unavailable Jaimie Okeefe Admitting Unavailable Nagajothi, Nagapradee Consulting Unavailabl e Sims, Jose David Primary Care Unavailable Koram, Mis Mitzi Attending Unavailable Odilia Burgos Admitting Unavailable Uyen Marino Consulting Unavailable Odilia Burgos Consulting Unavailable Sims, Jose David Primary Care Unavailable Michelle Altman Attending Unavailable Jaimie Okeefe Admitting Unavailable Jaimie Okeefe Consulting Unavailable Nagajomiroslava, Nagapradee Consulting Unavailabl e Michelle Altman Consulting Unavailable Sims, Jose David Primary Care Unavailable Koram, Mis Mitzi Admitting Unavailable Koram, Mis Mitzi Referring Unavailable Koram, Mis Mitzi Attending Unavailable Rajni, Jesse Consulting Unavailable Koram, Mis Mitzi Consulting Unavailable Sims, Jose David Primary Care Unavailable Odilia Burgos Consulting Unavailable Odilia Burgos Attending Unavailable Odilia Burgos Admitting Unavailable Uyen Marino Consulting Unavailable Mis Edmondson Consulting Unavailable Jesse Urban Attending Unavailable Sims, Jose David Primary Care Unavailable RajniJesse gonzalez Attending Unavailable Sims, Jose David Primary Care Unavailable Clark Lerma Attending Unavailable Jaimie Okeefe Attending Unavailable Sasha Rice Attending Unavailabl e Sims, Jose David Referring Unavailable Sims Jose David Attending Unavailable Sims, Jose David Primary Care Unavailable Allergies Allergy Classification Reported Allergen(s) Allergy Type Date of Onset Reaction(s) Facility (12 sources) codeine; Translations: [CODEINE] Drug Allergy 04-29-20 [facility], [facility] Repository (1 source) iodine; Translations: [IODINE] Drug Allergy 04-29-20 [facility] Repository (12 sources) methylphenidate; Translations: [METHYLPHENIDATE] Drug Allergy 11-22-19 16 [facility], [facility] Repository Comment on above: hallucinations (1 source) TRICYCLIC COMPOUNDS; Translations: [TRICYCLIC COMPOUNDS] Propensity to adverse reactions to drug (disorder) 04-23-20 17 [facility] Repository (9 sources) Diclofenac Drug Allergy 09-15-19 [facility] (9 sources) metaxalone Drug Allergy 09-15-19 [facility] (9 sources) traZODone Drug Allergy 09-15-19 [facility] Comment on above: catatonic state (9 sources) Triiodobenzoic Acids Allergy to substance 09-15-19 [facility] (9 sources) Tetracyclic Antidepressants Propensity to adverse reactions 09-15-19 [facility] Comment on above: catatonic state (9 sources) Tricyclic Antidepressants and Tricy Propensity to adverse reactions 09-15-19 [facility] Comment on above: catatonic state (1 source) Contrast media; Translations: [iodinated radiocontrast agents] Drug allergy [facility] (1 source) Tricyclic Antidepressant; Translations: [tricyclic antidepressants] Drug allergy [facility] (1 source) Diclofenac Drug Allergy 12-09-19 [facility] Repository (1 source) metaxalone Drug Allergy 12-09-19 [facility] Repository (1 source) Iodinated Contrast Media Drug allergy (disorder) 12-09-19 [facility] Repository (1 source) Tricyclic Antidepressants and Tricy Drug allergy (disorder) 12-09-19 [facility] Repository (1 source) Tetracyclic Antidepressants Drug allergy (disorder) 12-09-19 [facility] Repository (1 source) Phenylpiperazine Antidepressant Drug allergy (disorder) 12-09-19 [facility] Repository Medications Current Medications Medication Drug Class(es) Dates Sig (Normalized) Sig (Original) albuterol 0.417 mg/ml inhalation solution (6 sources) beta2-Adrenergic Agonist Start: 01-16-2025 take 1 [...] 2024 12:00am apixaban 5 mg oral tablet (2 sources) Factor Xa Inhibitor Start: 01-20-2025 take 1 tablet by mouth twice daily Apixaban (Eliquis) 5 mg Tablet Active 5 mg PO TWICE A DAY 0 0 January 20, 2025 12:00am Start: 01-16-2025 Eliquis 5 mg o ral tablet Dose : 5 mg = 1 tab(s), Oral, BID, # 60 tab(s), 0 Refill(s), 159 Start Date: 01/16/25 Status: Ordered Quantity: 60.0 Unit: tab(s) Repeat number: 1 Budesonide-Formoterol (5 sources) Corticosteroid, beta2-Adrenergic Agonist Start: 12-08-2024 Budesonide-Formoterol (Breyna) 160-4.5 mcg/actuation HFA aerosol inhaler Active [...] number: 1 fluconazole 150 mg oral tablet (3 sources) Azole Antifungal Start: 01-16-2025 take 1 tablet by mouth every week Fluconazole 150 mg tablet Active 150 mg PO EVERY WEEK January 17, 2025 12:00am ketoconazole 20 mg/ml topical cream (3 sources) Azole Antifungal Start: 01-17-2025 Ketoconazole 2 % cream Active 1 NMA TOPICAL TWICE A DAY January 17, 2025 12:00am Start: 01-16-2025 ketoconazole 2 % topical cream Apply 1 alexis, Topical, BID, Cream, 159 Start Date: 01/16/25 Status: Ordered Repeat number: 1 magnesium oxide 400 mg oral tablet (6 sources) Start: 12-08-2024 take 1 tablet by mouth twice daily Magnesium Oxide 400 mg (241.3 mg magnesium) tablet Active 400 mg PO TWICE A DAY December 08, 2024 12:00am metoprolol tartrate 50 mg oral tablet (9 sources) beta-Adrenergic Ortega Start: 01-20-2025 take 1 tablet by mouth twice daily Metoprolol Tartrate 50 mg Tablet Active 50 mg PO TWICE A DAY 60 0 January 20, 2025 12:00am Start: 09-16-2023 End: 12-08-2024 take 1 tablet by mouth once daily Metoprolol Succinate 50 mg Tablet Extended Release 24 Hr Discontinued 50 mg PO DAILY 30 0 September 16, 2023 12:00am December 08, 2024 9:34pm Volin (Nk) (1 source) Start: 09-15-2023 Volin (Nk) A ctive September 15, 2023 12:00am Completed/Discontinued Medications Medication Drug Class(es) Dates Sig (Normalized) Sig (Original) acetaminophen 325 mg / oxyCODONE hydrochloride 5 mg oral tablet (9 sources) Opioid Agonist Start: 09-08-2019 End: 09-11-2019 [...] 12:08am naproxen sodium 220 mg oral tablet (9 sources) Nonsteroidal Anti-inflammatory Drug Start: 03-06-2019 End: 03-08-2019 take 1 tablet by mouth twice daily as needed for pain Naproxen Sodium 220 MG tablet Discontinued 220 mg PO TWICE DAILY NEEDED as needed for back pain March 06, 2019 12:00am March 08, 2019 4:36pm oxyCODONE hydrochloride 5 mg oral tablet (18 sources) Opioid Agonist Start: 08-28-2019 End: 08-29-2019 [...] Dorsalgia, unspecified predniSONE 20 mg oral tablet (9 sources) Start: 05-20-2020 End: 09-15-2023 take 2 [...] food traMADol hydrochloride 50 mg oral tablet (9 sources) Opioid Agonist Start: 03-08-2019 End: 03-18-2019 take 1 tablet by mouth every six hours as needed for pain Tramadol 50 MG tablet Discontinued 50 mg PO EVERY 6 HOURS NEEDED as needed for Pain 28 7 March 08, 2019 12:00am March 14, 2019 12:00am March 18, 2019 12:09am Problems Active Problems Problem Classification Problem Date Documented Da te Episodic/Chronic Abdominal pain (9 sources) Chronic abdominal pain; Translations: [Unspecified abdominal pain] 03-03-2019 Episodic Acute and unspecified renal failure (9 sources) Acute renal failure syndrome; Translations: [Acute kidney failure, unspecified] Onset: 12-18-2024 12-09-2024 Episodic Allergic reactions (9 sources) Allergic reaction; Translations: [Allergy, unspecified, initial encounter] 05-21-2020 Episodic Anxiety disorders (10 sources) Anxiety; Translations: [Anxiety disorder, unspecified] 03-02-2019 Chronic Cardiac dysrhythmias (20 sources) Atrial arrhythmia; Translations: [Unspecified atrial fibrillation] Onset: 01-16-2025 09-15-2023 Chronic Chronic obstructive pulmonary disease and bronchiectasis (20 sources) Chronic obstructive lung disease; Translations: [Chronic obstructive pulmonary disease, unspecified] Onset: 12-13-2024 03-06-2019 Chronic Fluid and electrolyte disorders (8 sources) Metabolic acidosis, increased anion gap (IAG); Translations: [High anion gap metabolic acidosis] 12-09-2024 Episodic Genitourinary symptoms and ill-defined conditions (9 sources) Urinary incontinence; Translations: [Unspecified urinary incontinence] 03-03-2019 Chronic Malaise and fatigue (11 sources) Asthenia; Translations: [Weakness] 09-15-2023 Episodic Mood disorders (1 source) Depressive disorder 12-23-2017 Chronic Nonspecific chest pain (16 sources) Chest pain; Translations: [Chest pain, unspecified] 03-08-2019 Episodic Other hematologic conditions (8 sources) Erythrocytosis; Translations: [Secondary polycythemia] 12-09-2024 Episodic Other hematologic conditions (1 source) Secondary polycythemia; Translations: [Secondary polycythemia] Onset: 12-18-2024 Episodic Other lower respiratory disease (11 sources) Dyspnea; Translations: [Dyspnea, unspecified] 12-08-2024 Episodic Other lower respiratory disease (8 sources) Hypoxia; Translations: [Hypoxemia] 12-09-2024 Episodic Other lower respiratory disease (1 source) Hypoxemia; Translations: [Hypoxemia] Onset: 12-18-2024 Episodic Other lower respiratory disease (1 source) Dyspnea, unspecified; Translations: [Dyspnea, unspecified] Onset: 12-18-2024 Episodic Other nervous system disorders (9 sources) Paresthesia of hand ; Translations: [Paresthesia of skin] 07-16-2019 Episodic Pneumonia (except that caused by tuberculosis or sexually transmitted disease) (12 sources) Pneumonia; Translations: [Pneumonia, unspecified organism] Onset: 12-18-2024 12-09-2024 Episodic Residual codes; unclassified (9 sources) Obstructive sleep apnea syndrome; Translations: [Obstructive sleep apnea (adult) (pediatric)] 09-15-2023 Chronic Residual codes; unclassified (2 sources) Obstructive sleep apnea (adult) (pediatric); Translations: [Obstructive sleep apnea (adult)(pediatric)] 09-15-2023 Chronic Residual codes; unclassified (9 sources) H/O: steroid therapy; Translations: [Personal history of systemic steroid therapy] 08-28-2019 Episodic Residual codes; unclassified (7 sources) Tobacco user; Translations: [Tobacco use] 12-08-2024 Episodic Residual codes; unclassified (1 source) Refused procedure - parent's wish; Translations: [Procedure and treatment not carried out because of patient's decision for other reasons] Onset: 01-16-2025 Episodic Residual codes; unclassified (1 source) Procedure and treatment not carried out because of patient's decision for other reasons; Translations: [Procedure and treatment not carried out because of patient's decision for other reasons] Onset: 01-16-2025 Episodic Respiratory failure; insufficiency; arrest (adult) (16 sources) Acute respiratory failure; Translations: [Acute respiratory failure with hypoxia] Onset: 12-18-2024 12-08-2024 Episodic Spondylosis; intervertebral disc disorders; other back problems (20 sources) Lumbosacral stenosis; Translations: [Spinal stenosis, lumbosacral region] 07-16-2019 Episodic Unclassified (10 sources) Encounter for screening for malignant neoplasm [...] Test Name Value Interpretation Reference Range Facility Discharge Instructionon 12-27 Discharge Instruction Normal [facility] Urine Cultureon 01-20-2025 [facility] Mixed Gram Positive Organisms [place] Count 25,000-50,000 MIXC Mixed contaminants. Submit a new specimen if indicated. Normal [facility] Comment on above: Performed By: #### L 400.0001, M100.2200 ####[facility] [address] [place], [address] 12 Lead EKGon 01-19-2025 12 Lead EKG Normal [facility] CDIFF (PCR)on 01-19-2025 CDIFF Is the patient recei ving laxatives? N New/unexplained onset of 3 or more stools in past 24 hrs? Y Pending [phone] NAP1-B1 Presumptive Negative *for epidemiolologic???use C. Diff PCR Negative- No toxigenic C. Diff Detected Normal [facility] Comment on above: Performed By: #### M 100.637, M106.4896 ####[facility] [address] [place], [place], [id number] Clostridium difficile detect ion by polymerase chain reactionOrdered By: Jaimie Okeefe on 01-19-2025 C. difficile DNA TITI+probe Ql (Unsp spec) [facility] ENTERIC PATHOGEN PANEL STOOL on 01-19-2025 EP PANEL Normal [facility] Comment on above: Performed By: #### M 100.637, M103.6896 ####[facility] [address] [place], [address] Echo Limited w/Contraston Echo Limited w/Contrast Normal [facility] Electrocardiogram reportOrde red By: Sasha Rice on 01-19-2025 EKG study [facility] Cardi[facility] Services [address] [place] [address] 12 Lead EKG 01/19/25 0905 MR#: [id number] Acct: [id number] Name: MARCEL TURCIOS Rep #:[id number] : 1960 64 From: Sasha cesar MD Attending Dr: Dr. Michelle Altman DO Status: ADM IN Ordering Dr: Geneva Estrella MD Date: 01/18/25 Location: [facility] Sex: M C Admitted: 01/17/25 Test Reason : CP Blood Pressure : */* mmHG Vent. Rate : 104 BPM Atrial Rate : 104 BPM P-R Int : 158 ms QRS Dur : 120 ms QT Int : 372 ms P-R-T Axes : -9 -25 14 degrees QTcB Int : 489 ms Sinus tachycardia with Premature atrial complexes Right bundle branch block T wave abnormality, consider lateral ischemia Abnormal ECG When compared with ECG of 18-Jan-2025 19:40, MANUAL COMPARISON REQUIRED DATA IS UNCONFIRMED Confirmed by KRYSTAL MAGANA, PEGGY ([id number]), photo editor SONA KNIGHT ([id number]) on01/19/2025 2:32:24 PM Referred By: Confirmed By: PEGGY RICE MD 01/19/25 1432 Date _ Sasha Rice MD CC: Dr. Geneva Estrella MD; Dr. Jose David Sims MD; Dr. Michelle Altman, ~ Signed [facility] Work Phone: EKG study [facility] [address] [place] [address] 12 Lead EKG 01/17/25 1124 MR#: [id number] Acct: [id number] Name: MARCEL TURCIOS Rep #:[id number] : 1960 64 From: Sasha cesar MD Attending Dr: Dr. Michelle Altman DO Status: ADM IN Ordering Dr: Jose Vallejo ate: 01/17/25 Location: U Sex: M C Admitted: 01/17/25 Test Reason : REPEAT Blood Pressure : */* mmHG Vent. Rate : 156 BPM Atrial Rate : * BPM P-R Int : * ms QRS Dur : 124 ms QT Int : 292 ms P-R-T Axes : * -22 -30 degrees QTcB Int : 470 ms Critical Test Result: High HR afib with rvr Right bundle branch block Inferior infarct , age undetermined Abnormal ECG Confirmed by KRYSTAL MAGANA, PEGGY ([id number]), photo editor BUFFY BEARD ([id number]) on 01/19/2025 1:16:17 PM Referred By: Confirmed By: PEGGY RICE MD 01/19/25 1316 Date _ Sasha Rice MD CC: Dr. Jose Vallejo DO; Dr. Jose David Sims MD; Dr. Michelle Altman DO ~ Signed [facility] Work Phone: EKG study [facility] [address] [place] [address] 12 Lead EKG 01/17/25 1209 MR#: [id number] Acct: [id number] Name: MARCEL TURCIOS Rep #:[id number] : 1960 64 From: Sasha cesar MD Attending Dr: Dr. Michelle Altman DO Status: ADM IN Ordering : Jose Vallejo ate: 01/17/25 Location: U Sex: M C Admitted: 01/17/25 Test Reason : REPEAT AGAIN Blood Pressure : */* mmHG Vent. Rate : 68 BPM Atrial Rate : * BPM P-R Int : * ms QRS Dur : 122 ms QT Int : 496 ms P-R-T Axes : * -17 217 degrees QTcB Int : 527 ms Atrial fibrillation with premature ventricular or aberrantly conducted complexes Right bundle branch block Abnormal ECG Confirmed by KRYSTAL MAGANA, PEGGY ([id number]), photo editor BUFFY BEARD ([id number]) on 01/19/2025 1:16:36 PM Referred By: GHAZAL Confirmed By: PEGGY RICE MD 01/19/251315 Date _ Sasha Rice MD CC: Dr. Jose Vallejo DO; Dr. Jose David Sims MD; Dr. Michelle Altman DO ~ Signed [facility] Work Phone: EKG study [facility] [address] [place] [address] 12 Lead EKG 01/17/25 0934 MR#: [id number] Acct: [id number] Name: MARCEL TURCIOS Rep #:[id number] : 1960 64 From: Sasha cesar MD Attending Dr: Dr. Michelle Altman DO Status: ADM IN Ordering Dr: Jose Vallejo DO D ate: 01/17/25 Location: [facility] Sex: M C Admitted: 01/17/25 Test Reason : SOB Blood Pressure : */* mmHG Vent. Rate : 161 BPM Atrial Rate : * BPM P-R Int : * ms QRS Dur : 122 ms QT Int : 296 ms P-R-T Axes : * -39 59 degrees QTcB Int : 484 ms Critical Test Result: High HR afib with RVR Left axis deviation Right bundle branch block Abnormal ECG Confirmed by PEGGY RICE MD ([id number]), photo editor BUFFY BEARD ([id number]) on 01/19/2025 1:15:56 PM Referred By: GHAZAL/MERLY Confirmed By: PEGGY RICE MD 01/19/251314 Date _ Sasha Rice MD CC: Dr. Jose Vallejo DO; Dr. Jose David Sims MD; Dr. Michelle Altman DO ~ Signed [facility] Work Phone: Limited echocardiogram repor tOrdered By: Clark Lerma on 01-19-[address] [facility] [address] [place] [address] Echo Limited w/Contrast 01/19/25 1052 MR#: [id number] Acct: [id number] Name: MARCEL TURCIOS Rep #:[id number] : 1960 64 From: Clrak Zarate Attending Dr: Dr. Michelle Altman DO Status: ADM IN Ordering Dr: Geneva Estrella MD Date: 01/19/25 Location: [facility] Sex: M C Admitted: 01/17/25 Reason For Study Reason For Study: Afib, Aflutter Procedure This was a limited 2D transthoracic echocardiogram. Contrast injection was performed. Exam performed portable in patient room. Left Ventricle Normal LV size. Left ventricular systolic function is normal. The left ventricular ejection fraction is 55 %. No regional wall motion abnormalities noted. Right Ventricle Normal RV size. Normal systolic function. Great Vessels Normal aortic root. Pericardium/Pleural No pericardial effusion. Medication Diluted definity 4ml given slow IV push to enhance endocardial definition. MMode/2D Measurements & Calculations LVIDd: 6.3 cm IVSd: 0.99 cm LVIDs: 4.0 cm LVPWd: 1.1 cm FS: 36.3 % ECHO/Echo Limited w/Contrast Interpretation Summary Normal LV size. Left ventricular systolic function is normal. The left ventricular ejection fraction is 55 %. No regional wall motion abnormalities noted. Contrast injection was performed. The study was technically limited. Ordering Physician: Geneva Estrella Referring Physician: Jose David Sims Performed By: Radha Rodríguez, SUSAN, RVT 01/19/251719 Date _ Clark Lerma MD CC: Dr. Geneva Estrella MD; Dr. Jose David Sims MD; Dr. Michelle Altman DO ~ Date Dictated: 01/19/25 1052 Date Transcribed: 01/19/251719 [employer] Plant Manager: Signed [facility] Work Phone: 12 Lead EKGon 01-18-2025 12 Lead EKG Normal [facility] Anion gap in Serum or Plasma Ordered By: Jaimie Okeefe on 01-18-2025 Anion gap [Moles/Vol] 14 mmol/L 5-15 [facility] BUN/creatinine ratioOrdered By: Jaimie Okeefe on 01-18-2025 Urea nitrogen/Creatinine [Mass ratio] 17.6 mg/mg - [facility] Basic Metabolic Profile (BMP )on 01-18-2025 BUN/CRE 17.6 RATIO Normal - [facility] Comment on above: Performed By: #### L 100.0500, L500.2500 ####[facility] [address] [place], [address] Calcium [Mass/Vol] 9.2 mg/dL Normal 7.6-11.0 [facility] Comment on above: Performed By: #### L 100.0500, L500.2500 ####[facility] [address] [place], [address] Chloride [Moles/Vol] 105 mmol/L Normal 98-108 [facility] Comment on above: Performed By: #### L 100.0500, L500.2500 ####[facility] [address] [place], [address] CO2 [Moles/Vol] 19.2 mmol/L Low 21.0-32.0 [facility] Comment on above: Performed By: #### L 100.0500, L500.2500 ####[facility] [address] [place], [address] Creatinine [Mass/Vol] 1.18 mg/dL Normal 0.70-1.20 [facility] Comment on above: Performed By: #### L 100.0500, L500.2500 ####[facility] [address] [place], [address] ECRCL 100.16 ml/min Normal 50-250 [facility] Comment on above: Performed By: #### L 100.0500, L500.2500 ####[facility] [address] [place], [address] GAP 14 Normal 5-15 [facility] Comment on above: Performed By: #### L 100.0500, L500.2500 ####[facility] [address] [place], [address] GFR/1.73 sq M.predicted among non-blacks MDRD (S/P/Bld) [Vol rate/Area] 68 mL/min/{1.73_m2} Normal >60 [facility] Comment on above: Result Comment: mL/m in/1.73m2 CKD-EPI Creatinine Equation (2020) Performed By: #### L 100.0500, L500.2500 ####[facility] [address] [place], [address] Glucose [Mass/Vol] 176 mg/dL High 70-99 [facility] Comment on above: Performed By: #### L 100.0500, L500.2500 ####[facility] [address] [place], [address] Potassium [Moles/Vol] 4.4 mmol/L Normal 3.3-5.1 [facility] Comment on above: Performed By: #### L 100.0500, L500.2500 ####[facility] [address] [place], [address] Sodium [Moles/Vol] 138 mmol/L Normal 133-145 [facility] Comment on above: Performed By: #### L 100.0500, L500.2500 ####[facility] [address] [place], [address] Urea nitrogen [Mass/Vol] 21 mg/dL High 4-19 [facility] Comment on above: Performed By: #### L 100.0500, L500.2500 ####[facility] [address] [place], [address] CBC-Complete Blood Cnt No Di ffon 01-18-2025 Erythrocyte distribution width (RBC) [Ratio] 14.6 % Normal 11.6-14.6 [facility] Comment on above: Performed By: #### L 100.0500, L500.2500 ####[facility] [address] [place], [address] Hematocrit (Bld) [Volume fraction] 45.2 % Normal 40-54 [facility] Comment on above: Performed By: #### L 100.0500, L500.2500 ####[facility] [address] [place], [address] Hemoglobin (Bld) [Mass/Vol] 15.6 g/dL Normal 13.0-16.5 [facility] Comment on above: Performed By: #### L 100.0500, L500.2500 ####[facility] [address] [place], [address] MCH (RBC) [Entitic mass] 29.8 pg Normal 27.0-32.0 [facility] Comment on above: Performed By: #### L 100.0500, L500.2500 ####[facility] [address] [place], [address] MCHC (RBC) [Mass/Vol] 34.5 g/dL Normal 32-36 [facility] Comment on above: Performed By: #### L 100.0500, L500.2500 ####[facility] [address] [place], [address] MCV (RBC) [Entitic vol] 86.3 fL Normal 80-94 [facility] Comment on above: Performed By: #### L 100.0500, L500.2500 ####[facility] [address] [place], [address] Platelet mean volume (Bld) [Entitic vol] 9.3 fL Normal 6.2-12.0 [facility] Comment on above: Performed By: #### L 100.0500, L500.2500 ####[facility] [address] [place], [address] Platelets (Bld) [#/Vol] 198 10*3/uL Normal 150-450 [facility] Comment on above: Performed By: #### L 100.0500, L500.2500 ####[facility] [address] [place], [address] RBC (Bld) [#/Vol] 5.24 10*6/uL Normal 4.6-6.2 [facility] Comment on above: Performed By: #### L 100.0500, L500.2500 ####[facility] [address] [place], [address] RDW SD 46.3 fl High 35.1-43.9 [facility] Comment on above: Performed By: #### L 100.0500, L500.2500 ####[facility] [address] [place], [address] WBC (Bld) [#/Vol] 11.1 10*3/uL High 4.4-11.0 [facility] Comment on above: Performed By: #### L 100.0500, L500.2500 ####[facility] [address] [place], [address] Carbon dioxide, total [Moles /volume] in Central venous bloodOrdered By: Jaimie Okeefe on 01-18-2025 CO2 [Moles/Vol] 19.2 mmol/L Low 21.0-32.0 [facility] Chloride assayOrdered By: Yasmany Okeefe on 01-18-2025 Chloride [Moles/Vol] 105 mmol/L 98-108 [facility] Consultation - Cardiologyon 01-18-2025 Consultation - Cardiology Normal [facility] Erythrocyte distribution wid th ratioOrdered By: Jaimie Okeefe on 01-18-2025 Erythrocyte distribution width (RBC) [Ratio] 14.6 % 11.6-14.6 [facility] Erythrocyte distribution wid th standard deviationOrdered By: Jaimie Okeefe on 01-18-2025 Erythrocyte distribution width (RBC) [Ratio] 46.3 fl High 35.1-43.9 [facility] Glomerular filtration rate ( GFR) estimation/1.73 sq m using serum, plasma, or whole bOrdered By: Jaimie Okeefe on 01-18-2025 GFR/1.73 sq M.predicted among non-blacks MDRD (S/P/Bld) [Vol rate/Area] 68 mL/min/{1.73_m2} >60 [facility] Comment on above: mL/min/1.73m2 CKD-EP I Creatinine Equation (2020) Hematocrit Auto (Bld) [Volum e fraction]Ordered By: Jaimie Okeefe on 01-18-2025 Hematocrit (Bld) [Volume fraction] 45.2 % 40-54 [facility] Hemoglobin measurementOrdere d By: Jaimie Okeefe on 01-18-2025 Hemoglobin (Bld) [Mass/Vol] 15.6 g/dL 13.0-16.5 [facility] M100.019on 01-18-2025 M100.019 Negative Normal [facility] Comment on above: Performed By: #### M 100.019 ####[facility] [address] [place], [place], [id number] MCV (mean corpuscular volume ) determinationOrdered By: Jaimie Okeefe on 01-18-2025 MCV (RBC) [Entitic vol] 86.3 fL 80-94 [facility] Mean corpuscular hemoglobin (MCH) determinationOrdered By: Jaimie Okeefe on 01-18-2025 MCH (RBC) [Entitic mass] 29.8 pg 27.0-32.0 [facility] Mean corpuscular hemoglobin concentration (MCHC) determinationOrdered By: Jaimie Okeefe on 01-18-2025 MCHC (RBC) [Mass/Vol] 34.5 g/dL 32-36 [facility] Mean platelet volume determi nationOrdered By: Jaimie Okeefe on 01-18-2025 Platelet mean volume (Bld) [Entitic vol] 9.3 fL 6.2-12.0 [facility] Platelet countOrdered By: Yasmany Okeefe on 01-18-2025 Platelets (Bld) [#/Vol] 198 10*3/uL 150-450 [facility] Potassium measurement (mass/ volume)Ordered By: Jaimie Okeefe on 01-18-2025 Potassium (Unsp spec) [Mass/Vol] 4.4 mmol/L 3.3-5.1 [facility] RBC Auto (Bld) [#/Vol]Ordere d By: Jaimie Okeefe on 01-18-2025 RBC (Bld) [#/Vol] 5.24 10*6/uL 4.6-6.2 [facility] RESPIRATORY PANEL MOLECULARo n 01-18-2025 RP PANEL Normal [facility] Comment on above: Performed By: #### M 100.638 ####[facility] [address] [place], [address] Serum creatinine measurement (mass/volume)Ordered By: Jaimie Okeefe on 01-18-2025 Creatinine [Mass/Vol] 1.18 mg/dL 0.70-1.20 [facility] Serum glucose measurement (m ass/volume)Ordered By: Jaimie Okeefe on 01-18-2025 Glucose [Mass/Vol] 176 mg/dL High 70-99 [facility] Serum or plasma calcium jarrod urement (mass/volume)Ordered By: Jaimie Okeefe on 01-18-2025 Calcium [Mass/Vol] 9.2 mg/dL 7.6-11.0 [facility] Serum or plasma urea nitroge n measurement (mass/volume)Ordered By: Jaimie Okeefe on 01-18-2025 Urea nitrogen [Mass/Vol] 21 mg/dL High 4-19 [facility] Sodium levelOrdered By: Cortez Okeefe on 01-18-2025 Sodium [Moles/Vol] 138 mmol/L 133-145 [facility] White blood cell (WBC) count Ordered By: Jaimie Okeefe on 01-18-2025 WBC (Bld) [#/Vol] 11.1 10*3/uL High 4.4-11.0 [facility] 12 Lead EKGon 01-17-2025 12 Lead EKG Normal [facility] 12 Lead EKG Normal [facility] Abdomen Single View (Portabl e)on 01-17-2025 Abdomen Single View (Portable) Normal [facility] Abdomen/Pelvis without Conto n 01-17-2025 Abdomen/Pelvis without Cont Normal [facility] Absolute lymphocyte countOrd ered By: Jose Vallejo on 01-17-2025 Lymphocytes Auto (Unsp spec) [#/Vol] 3.25 10*3/uL 0.83-4.51 [facility] Absolute neutrophil countOrd ered By: Jose Vallejo on 01-17-2025 Neutrophils (Bld) [#/Vol] 8.3 10*3/uL High 2.0-7.7 [facility] Anion gap in Serum or Plasma Ordered By: Jose Vallejo on 01-17-2025 Anion gap [Moles/Vol] 21 mmol/L High 5-15 [facility] Automated lymphocyte count a s percentage of total leukocytesOrdered By: Jose Vallejo on 01-17-2025 Lymphocytes/100 WBC Auto (Unsp spec) 25.4 % 19-41 [facility] BUN/creatinine ratioOrdered By: Jose Vallejo on 01-17-2025 Urea nitrogen/Creatinine [Mass ratio] 12.7 mg/mg - [facility] Basic Metabolic Profile (BMP )on 01-17-2025 BUN/CRE 12.7 RATIO Normal 04-16 [facility] Comment on above: Performed By: #### L 100.0100, L500.2500 ####[facility] [address] [place], [address] Calcium [Mass/Vol] 9.6 mg/dL Normal 7.6-11.0 [facility] Comment on above: Performed By: #### L 100.0100, L500.2500 ####[facility] [address] [place], [address] Chloride [Moles/Vol] 101 mmol/L Normal 98-108 [facility] Comment on above: Performed By: #### L 100.0100, L500.2500 ####[facility] [address] [place], [address] CO2 [Moles/Vol] 16.2 mmol/L Low 21.0-32.0 [facility] Comment on above: Performed By: #### L 100.0100, L500.2500 ####[facility] [address] [place], [address] Creatinine [Mass/Vol] 1.27 mg/dL High 0.70-1.20 [facility] Comment on above: Performed By: #### L 100.0100, L500.2500 ####[facility] [address] [place], [address] ECRCL 94.47 ml/min Normal 50-250 [facility] Comment on above: Performed By: #### L 100.0100, L500.2500 ####[facility] [address] [place], [address] GAP 21 High 5-15 [facility] Comment on above: Performed By: #### L 100.0100, L500.2500 ####[facility] [address] [place], [address] GFR/1.73 sq M.predicted among non-blacks MDRD (S/P/Bld) [Vol rate/Area] 63 mL/min/{1.73_m2} Normal >60 [facility] Comment on above: Result Comment: mL/m in/1.73m2 CKD-EPI Creatinine Equation (2020) Performed By: #### L 100.0100, L500.2500 ####[facility] [address] [place], [address] Glucose [Mass/Vol] 162 mg/dL High 70-99 [facility] Comment on above: Performed By: #### L 100.0100, L500.2500 ####[facility] [address] [place], [address] Potassium [Moles/Vol] 4.3 mmol/L Normal 3.3-5.1 [facility] Comment on above: Performed By: #### L 100.0100, L500.2500 ####[facility] [address] [place], [address] Sodium [Moles/Vol] 138 mmol/L Normal 133-145 [facility] Comment on above: Performed By: #### L 100.0100, L500.2500 ####[facility] [address] [place], [address] Urea nitrogen [Mass/Vol] 16 mg/dL Normal 4-19 [facility] Comment on above: Performed By: #### L 100.0100, L500.2500 ####[facility] [address] [place], [address] Basophil percentageOrdered B y: Jose Vallejo on 01-17-2025 Basophils/100 WBC (Bld) 0.8 % 0-1 [facility] Bilirubin Test strip Ql (U)O rdered By: Jaimie Okeefe on 01-17-2025 Bilirubin Ql (U) Negative Negative [facility] CBC W/Diff, Automatedon 12-27 Absolute Lymph 3.25 X10 3/uL Normal 0.83-4.51 [facility] Comment on above: Order Comment: CRITI GENEVIEVE VALUE CALLED TO [facility]01/17/25 1032 Alia Gordillo.RESULTS READ BACK BY SAME. Performed By: #### L 100.0100, L500.2500 ####[facility] [address] [place], [address] Absolute Neut 8.3 X10 3/uL High 2.0-7.7 [facility] Comment on above: Order Comment: CRITI GENEVIEVE VALUE CALLED TO [facility]01/17/25 1032 Alia Gordillo.RESULTS READ BACK BY SAME. Performed By: #### L 100.0100, L500.2500 ####[facility] [address] [place], [address] Basophils/100 WBC (Bld) 0.8 % Normal 0-1 [facility] Comment on above: Order Comment: CRITI GENEVIEVE VALUE CALLED TO [facility]01/17/25 1032 Aila Gordillo.RESULTS READ BACK BY SAME. Performed By: #### L 100.0100, L500.2500 ####[facility] [address] [place], [address] Eosinophils/100 WBC (Bld) 1.1 % Normal 0-5 [facility] Comment on above: Order Comment: CRITI GENEVIEVE VALUE CALLED TO [facility]01/17/25 1032 Alia Gordillo.RESULTS READ BACK BY SAME. Performed By: #### L 100.0100, L500.2500 ####[facility] [address] [place], [address] Erythrocyte distribution width (RBC) [Ratio] 14.9 % High 11.6-14.6 [facility] Comment on above: Order Comment: CRITI GENEVIEVE VALUE CALLED TO CHIKA MYERS01/17/25 1032 Alia Gordillo.RESULTS READ BACK BY SAME. Performed By: #### L 100.0100, L500.2500 ####[facility] [address] [place], [address] Hematocrit (Bld) [Volume fraction] 53.6 % Normal 40-54 [facility] Comment on above: Order Comment: CRITI GENEVIEVE VALUE [facility]01/17/25 1032 Alia Gordillo.RESULTS READ BACK BY SAME. Performed By: #### L 100.0100, L500.2500 ####[facility] [address] [place], [address] Hemoglobin (Bld) [Mass/Vol] 18.0 g/dL Invalid Interpretation Code 13.0-16.5 [facility] Comment on above: Order Comment: CRITI GENEVIEVE VALUE CALLED TO [facility]IK[facility]01/17/25 1032 Alia Gordillo.RESULTS READ BACK BY SAME. Performed By: #### L 100.0100, L500.2500 ####[facility] [address] [place], [address] IG% 0.500 Normal 0.0-0.9 [facility] Comment on above: Order Comment: CRITI GENEVIEVE VALUE CALLED TO [facility]01/17/25 1032 Alia Gordillo.RESULTS READ BACK BY SAME. Result Comment: IG% - Immature Granulocytes (promyelocytes, myelocytes andmetamyelocytes) > 1% indicates that a LEFT SHIFT is Present. Performed By: #### L 100.0100, L500.2500 ####[facility] [address] [place], [address] Lymphocytes/100 WBC (Bld) 25.4 % Normal 19-41 [facility] Comment on above: Order Comment: CRITI GENEVIEVE VALUE CALLED TO [facility]01/17/25 1032 Alia Gordillo.RESULTS READ BACK BY SAME. Performed By: #### L 100.0100, L500.2500 ####[facility] [address] [place], [address] MCH (RBC) [Entitic mass] 29.5 pg Normal 27.0-32.0 [facility] Comment on above: Order Comment: CRITI GENEVIEVE VALUE CALLED TO CHIKA MYERS01/17/25 1032 Alia Gordillo.RESULTS READ BACK BY SAME. Performed By: #### L 100.0100, L500.2500 ####[facility] [address] [place], [address] MCHC (RBC) [Mass/Vol] 33.6 g/dL Normal 32-36 [facility] Comment on above: Order Comment: CRITI GENEVIEVE VALUE CALLED TO CHIKA MYERS01/17/25 1032 Alia Gordillo.RESULTS READ BACK BY SAME. Performed By: #### L 100.0100, L500.2500 ####[facility] [address] [place], [address] MCV (RBC) [Entitic vol] 87.7 fL Normal 80-94 [facility] Comment on above: Order Comment: CRITI GENEVIEVE VALUE CALLED TO CHIKA 01/17/25 1032 Alia Gordillo.RESULTS READ BACK BY SAME. Performed By: #### L 100.0100, L500.2500 ####[facility] [address] [place], [address] Monocytes/100 WBC (Bld) 7.7 % Normal 0-10 [facility] Comment on above: Order Comment: CRITI GENEVIEVE VALUE CALLED TO CHIKA MYERS01/17/25 1032 Alia Gordillo.RESULTS READ BACK BY SAME. Performed By: #### L 100.0100, L500.2500 ####[facility] [address] [place], [address] Neutrophils/100 WBC (Bld) 64.5 % Normal 47-70 [facility] Comment on above: Order Comment: CRITI GENEVIEVE VALUE CALLED TO CHIKA MYERS01/17/25 1032 Alia Gordillo.RESULTS READ BACK BY SAME. Performed By: #### L 100.0100, L500.2500 ####[facility] [address] [place], [address] Nucleated RBC (Bld) [#/Vol] 0 10*3/uL Normal 0-5 [facility] Comment on above: Order Comment: CRITI GENEVIEVE VALUE CALLED TO [facility]01/17/25 1032 Alia Gordillo.RESULTS READ BACK BY SAME. Performed By: #### L 100.0100, L500.2500 ####[facility] [address] [place], [address] Platelet mean volume (Bld) [Entitic vol] 9.4 fL Normal 6.2-12.0 [facility] Comment on above: Order Comment: CRITI GENEVIEVE VALUE CALLED TO [facility]01/17/25 1032 Alai Gordillo.RESULTS READ BACK BY SAME. Performed By: #### L 100.0100, L500.2500 ####[facility] [address] [place], [address] Platelets (Bld) [#/Vol] 248 10*3/uL Normal 150-450 [facility] Comment on above: Order Comment: CRITI GENEVIEVE VALUE CALLED TO [facility]01/17/25 1032 Alia Gordillo.RESULTS READ BACK BY SAME. Performed By: #### L 100.0100, L500.2500 ####[facility] [address] [place], [address] RBC (Bld) [#/Vol] 6.11 10*6/uL Normal 4.6-6.2 [facility] Comment on above: Order Comment: CRITI GENEVIEVE VALUE CALLED TO [facility]01/17/25 1032 Alia Gordillo.RESULTS READ BACK BY SAME. Performed By: #### L 100.0100, L500.2500 ####[facility] [address] [place], [address] RDW SD 47.1 fl High 35.1-43.9 [facility] Comment on above: Order Comment: CRITI GENEVIEVE VALUE CALLED TO [facility]01/17/25 1032 Alia Gordillo.RESULTS READ BACK BY SAME. Performed By: #### L 100.0100, L500.2500 ####[facility] [address] [place], [address] WBC (Bld) [#/Vol] 12.8 10*3/uL High 4.4-11.0 [facility] Comment on above: Order Comment: CRITI GENEVIEVE VALUE CALLED TO [facility]01/17/25 1032 Alia Gordillo.RESULTS READ BACK BY SAME. Performed By: #### L 100.0100, L500.2500 ####[facility] [address] [place], [place], [phone] CO2 (BldV) [Moles/Vol]Ordere d By: Jose Vallejo on 01-17-2025 CO2 [Moles/Vol] 23 mmol/L 23-33 [facility] Carbon dioxide, total [Moles /volume] in Central venous bloodOrdered By: Jose Vallejo on 01-17-2025 CO2 [Moles/Vol] 16.2 mmol/L Low 21.0-32.0 [facility] Chest 1 Viewon 01-17-2025 Chest 1 View Normal [facility] Chloride assayOrdered By: Juarez Vallejo on 01-17-2025 Chloride [Moles/Vol] 101 mmol/L 98-108 [facility] D-Dimer Quantitative (DVT/PE )on 01-17-2025 D-DIMER QUANT 0.61 FEU/ug/m Invalid Interpretation Code 0.27-0.49 [facility] Comment on above: Result Comment: D-Di kristian ELEVATED (>0.49): Additional studies and clinicalassessments are indicated to conclude diagnosis of:Deep Vein Thrombosis (DVT) or Pulmonary Embolism (PE)CRITICAL VALUE CALLED TO TERELL KISER (ER)01/17/25 1245 Sergio Rosas.RESULTS READ BACK BY SAME. Performed By: #### L 300.8000 ####[facility] [address] [place], [address] Emergency Department Summary on 01-17-2025 Emergency Department Summary Normal [facility] Eosinophil percentageOrdered By: Jose Vallejo on 01-17-2025 Eosinophils/100 WBC (Bld) 1.1 % 0-5 [facility] Erythrocyte distribution wid th ratioOrdered By: Jose Vallejo on 01-17-2025 Erythrocyte distribution width (RBC) [Ratio] 14.9 % High 11.6-14.6 [facility] Erythrocyte distribution wid th standard deviationOrdered By: Jose Laura Littlejohn on 01-17-2025 Erythrocyte distribution width (RBC) [Ratio] 47.1 fl High 35.1-43.9 [facility] Glomerular filtration rate ( GFR) estimation/1.73 sq m using serum, plasma, or whole bOrdered By: Jose Vallejo on 01-17-2025 GFR/1.73 sq M.predicted among non-blacks MDRD (S/P/Bld) [Vol rate/Area] 63 mL/min/{1.73_m2} >60 [facility] Comment on above: mL/min/1.73m2 CKD-EP I Creatinine Equation (2020) H AND P Exam - Hospitaliston 01-17-2025 H&P Exam - Hospitalist Normal [facility] Hematocrit Auto (Bld) [Volum e fraction]Ordered By: Jose Vallejo on 01-17-2025 Hematocrit (Bld) [Volume fraction] 53.6 % 40-54 [facility] Hemoglobin measurementOrdere d By: Jose Vallejo on 01-17-2025 Hemoglobin (Bld) [Mass/Vol] 18.0 g/dL High 13.0-16.5 [facility] Immature granulocytes/100 WB C Auto (Bld)Ordered By: Jose Vallejo on 01-17-2025 Immature granulocytes/100 WBC (Bld) 0.500 % 0.0-0.9 [facility] Comment on above: IG% - Immature Granu locytes (promyelocytes, myelocytes and metamyelocytes) > 1% indicates that a LEFT SHIFT is Present. Ketones Test strip Ql (U)Ord ered By: Jaimie Okeefe on 01-17-2025 Ketones Ql (U) 150 mg/dl Abnormal Negative [facility] Comment on above: CRITICAL VALUE HENDRIX D TO MARY MCKEONRIS01/17/25 1706 Yun Mcpherson.RESULTS READ BACK BY SAME. L501.4021on 01-17-2025 Trop T High Sen 18 ng/L Normal <=22 [facility] Comment on above: Performed By: #### L 501.4021 ####[facility] [address] [place], [address] L503.7505on 01-17-2025 Natriuretic peptide B (Bld) [Mass/Vol] 782 pg/mL Normal <=900 [facility] Comment on above: Result Comment: Hear t Failure Unlikely: < 300 pg/mLHeart Failure Likely< 50 Years: > 450 pg/mL50-75 Years: > 900 pg/mL>75 Years: > 1800 pg/mL Performed By: #### L 503.7505, L501.5200 ####[facility] [address] [place], [place], [address] MCV (mean corpuscular volume ) determinationOrdered By: Jose Vallejo on 01-17-2025 MCV (RBC) [Entitic vol] 87.7 fL 80-94 [facility] Magnesiumon 01-17-2025 Magnesium [Mass/Vol] 2.1 mg/dL Normal 1.5-2.2 [facility] Comment on above: Performed By: #### L 503.7505, L501.5200 ####[facility] [address] [place], [place], [address] Magnesium measurement (mass/ volume)Ordered By: Jose Vallejo on 01-17-2025 Magnesium (Unsp spec) [Mass/Vol] 2.1 mg/dL 1.5-2.2 [facility] Mean corpuscular hemoglobin (MCH) determinationOrdered By: Jose Vallejo on 01-17-2025 MCH (RBC) [Entitic mass] 29.5 pg 27.0-32.0 [facility] Mean corpuscular hemoglobin concentration (MCHC) determinationOrdered By: Jose Vallejo on 01-17-2025 MCHC (RBC) [Mass/Vol] 33.6 g/dL 32-36 [facility] Mean platelet volume determi nationOrdered By: Jose Vallejo on 01-17-2025 Platelet mean volume (Bld) [Entitic vol] 9.4 fL 6.2-12.0 [facility] Microscopic analysis of urin e for red blood cells (RBC)Ordered By: Jaimie Okeefe on 01-17-2025 Microscopic analysis of urine for red blood cells (RBC) 5-10 SEEN /hpf 0-5 [facility] Monocyte percentageOrdered B y: Jose Vallejo on 01-17-2025 Monocytes/100 WBC (Bld) 7.7 % 0-10 [facility] Mucus LM Ql (Urine sed)Order ed By: Jaimie Okeefe on 01-17-2025 Mucus Ql (Urine sed) 0 SEEN /hpf [facility] Natriuretic peptide.B prohor hector N-Terminal [Mass/volume] in Serum or PlasmaOrdered By: Jose Vallejo on 01-17-2025 Natriuretic peptide.B prohormone N-Terminal [Mass/Vol] 782 pg/mL <900 [facility] Comment on above: Heart Failure Unlike ly: < 300 pg/mLHeart Failure Likely< 50 Years: > 450 pg/mL50-75 Years: > 900 pg/mL>75 Years: > 1800 pg/mL Neutrophil percentageOrdered By: Jose Vallejo on 01-17-2025 Neutrophils/100 WBC (Bld) 64.5 % 47-70 [facility] Nitrite Test strip Ql (U)Ord ered By: Jaimie Okeefe on 01-17-2025 Nitrite Ql (U) Negative Negative [facility] No Panel InformationOrdered By: Jose Vallejo on 01-17-2025 Blood Gas Sample Site Not entered [facility] Blood Gas Specimen Type MATHEW [facility] Oxygen Delivery Device Not entered [facility] Nucleated red blood cell per centageOrdered By: Jose Vallejo on 01-17-2025 Nucleated RBC/100 WBC (Bld) [Ratio] 0 % 0-5 [facility] Platelet countOrdered By: Juarez Vallejo on 01-17-2025 Platelets (Bld) [#/Vol] 248 10*3/uL 150-450 [facility] Potassium measurement (mass/ volume)Ordered By: Jose Vallejo on 01-17-2025 Potassium (Unsp spec) [Mass/Vol] 4.3 mmol/L 3.3-5.1 [facility] Protein Test strip Ql (U)Ord ered By: Jaimie Okeefe on 01-17-2025 Protein Ql (U) 30 mg/dl High Negative [facility] RBC Auto (Bld) [#/Vol]Ordere d By: Jose Vallejo on 01-17-2025 RBC (Bld) [#/Vol] 6.11 10*6/uL 4.6-6.2 [facility] Respiratory pathogens detect ion panel by molecular detection methodOrdered By: Jaimie Okeefe on 01-17-2025 Respiratory pathogens DNA and RNA panel TITI+probe (Resp) [facility] [id number] By: Jose Vallejo on 01-17-2025 SARS-CoV-2 (COVID-19) RNA TITI+probe Ql (Unsp spec) [facility] Serum creatinine measurement (mass/volume)Ordered By: Jose Vallejo on 01-17-2025 Creatinine [Mass/Vol] 1.27 mg/dL High 0.70-1.20 [facility] Serum glucose measurement (m ass/volume)Ordered By: Jose Vallejo on 01-17-2025 Glucose [Mass/Vol] 162 mg/dL High 70-99 [facility] Serum or plasma calcium jarrod urement (mass/volume)Ordered By: Jose Littlejohn on 01-17-2025 Calcium [Mass/Vol] 9.6 mg/dL 7.6-11.0 [facility] Serum or plasma urea nitroge n measurement (mass/volume)Ordered By: Jose Vallejo on 01-17-2025 Urea nitrogen [Mass/Vol] 16 mg/dL 4-19 [facility] Sodium levelOrdered By: Cordell Vallejo on 01-17-2025 Sodium [Moles/Vol] 138 mmol/L 133-145 [facility] Squamous epithelial cells de tection in urine sediment by light microscopyOrdered By: Jaimie Okeefe on 01-17-2025 Epithelial cells.squamous LM Ql (Urine sed) 0-5 SEEN /hpf 0-5 [facility] Troponin T HS 2 HRon 025 Trop T High Sen 22 ng/L Normal <=22 [facility] Comment on above: Performed By: #### L 499.0042 ####[facility] [address] [place], [place], [id number] Troponin T HS 4 HRon 025 Trop T High Sen 17 ng/L Normal <=22 [facility] Comment on above: Performed By: #### L 499.0043 ####[facility] [address] [place], [place], [id number] Troponin T.cardiac [Mass/vol ume] in Serum or Plasma by High sensitivity methodOrdered By: Jose Vallejo on 01-17-2025 Troponin T.cardiac High sensitivity method [Mass/Vol] 17 ng/L <22 [facility] Troponin T.cardiac High sensitivity method [Mass/Vol] 22 ng/L <22 [facility] Troponin T.cardiac High sensitivity method [Mass/Vol] 18 ng/L <22 [facility] Comment on above: Delta: 36 on Urinalysis, Completeon 01-17 RBC 5-10 SEEN Normal 0-5 [facility] Comment on above: Order Comment: CLEAN CATCH Performed By: #### L 400.0001, M100.2200 ####[facility] [address] [place], [place], [id number] EPI,SQUAMOUS 0-5 SEEN Normal 0-5 [facility] Comment on above: Order Comment: CLEAN CATCH Performed By: #### L 400.0001, M100.2200 ####[facility] [address] [place], [address] WBC 0-5 SEEN Normal 0-5 [facility] Comment on above: Order Comment: CLEAN CATCH Performed By: #### L 400.0001, M100.2200 ####[facility] [address] [place], [address] BACTERIA 0 SEEN Normal None Seen [facility] Comment on above: Order Comment: CLEAN CATCH Performed By: #### L 400.0001, M100.2200 ####[facility] [address] [place], [address] Mucus Ql (Urine sed) 0 SEEN Normal [facility] Comment on above: Order Comment: CLEAN CATCH Performed By: #### L 400.0001, M100.2200 ####[facility] [address] [place], [address] Urine clarityOrdered By: Lew Okeefe on 01-17-2025 Clarity (U) Clear Clear [facility] Urine color determinationOrd ered By: Jaimie Okeefe on 01-17-2025 Color (U) Yellow Yellow [facility] Urine cultureOrdered By: Lew Okeefe on 01-17-2025 Bacteria identified Cx Nom (U) Positive Abnormal [facility] Urine glucose detectionOrder ed By: Jaimie Okeefe on 01-17-2025 Glucose Ql (U) Normal mg/dl Normal [facility] Urine leukocyte esterase det ection by dipstickOrdered By: Jaimie Okeefe on 01-17-2025 Leukocyte esterase Test strip Ql (U) Negative Negative [facility] Urine pHOrdered By: Jaimie rivera on 01-17-2025 pH (U) 5.0 [pH] 5.0 - 8.0 [facility] Urine sediment bacteria coun t by microscopy (number/high power field)Ordered By: Jaimie Okeefe on 01-17-2025 Bacteria LM.HPF (Urine sed) [#/Area] 0 /[HPF] None Seen [facility] Urine specific gravity measu rementOrdered By: Jaimie Okeefe on 01-17-2025 Specific gravity (U) [Rel density] 1.020 1.002-1.03 0 [facility] Urine urobilinogen measureme ntOrdered By: Jaimie Okeefe on 01-17-2025 Urobilinogen Ql (U) Normal mg/dl Normal [facility] Venous Blood Gason Blood Gas Type MATHEW Normal [facility] Comment on above: Performed By: #### L 9000.0810 ####[facility] [address] [place], [address] CO2 [Moles/Vol] 23 mmol/L Normal 23-33 [facility] Comment on above: Performed By: #### L 9000.0810 ####[facility] [address] [place], [address] FI02 2.0 Normal [facility] Comment on above: Performed By: #### L 9000.0810 ####[facility] [address] [place], [address] HCO3 (Bld) [Moles/Vol] 22 mmol/L Normal 22-26 [facility] Comment on above: Performed By: #### L 9000.0810 ####[facility] [address] [place], [address] O2 Delivery Dev Not entered [facility] Comment on above: Performed By: #### L 9000.0810 ####[facility] [address] [place], [address] SITE Not entered [facility] Comment on above: Performed By: #### L 9000.0810 ####[facility] [address] [place], [address] VBG BE -1 mmol/L Normal -1.0-3.5 [facility] Comment on above: Performed By: #### L 9000.0810 ####[facility] [address] [place], [place], [id number] VBG pCO2 30.6 mmHg Low 41-51 [facility] Comment on above: Performed By: #### L 9000.0810 ####[facility] [address] [place], [place], [id number] VBG pH 7.47 High 7.32-7.42 [facility] Comment on above: Performed By: #### L 9000.0810 ####[facility] [address] [place], [place], [id number] VBG PO2 48 mmHg High 25-40 [facility] Comment on above: Performed By: #### L 9000.0810 ####[facility] [address] [place], [place], [id number] VBG SO2 87 High 50-70 [facility] Comment on above: Performed By: #### L 9000.0810 ####[facility] [address] [place], [place], [id number] Venous blood base excess mikey surementOrdered By: Jose Vallejo on 01-17-2025 Base excess Calc (BldV) [Moles/Vol] -1 mmol/L -1.0-3.5 [facility] Venous blood bicarbonate mikey surementOrdered By: Jose Vallejo on 01-17-2025 HCO3 (Bld) [Moles/Vol] 22 mmol/L 22-26 [facility] Venous blood oxygen saturati on measurementOrdered By: Jose Vallejo on 01-17-2025 Oxygen saturation in Blood 87 % High 50-70 [facility] Venous blood pH measurementO rdered By: Jose Vallejo on 01-17-2025 pH (BldV) 7.47 [pH] High 7.32-7.42 [facility] Venous blood partial pressur e of carbon dioxide measurementOrdered By: Jose Vallejo on 01-17-2025 CO2 (BldV) [Partial pressure] 30.6 mm[Hg] Low 41-51 [facility] Venous blood partial pressur e of oxygen measurementOrdered By: Jose Littlejohn on 01-17-2025 Oxygen (BldV) [Partial pressure] 48 mm[Hg] High 25-40 [facility] White blood cell (WBC) count Ordered By: Jose Vallejo on 01-17-2025 WBC (Bld) [#/Vol] 12.8 10*3/uL High 4.4-11.0 [facility] White blood cell countOrdere d By: Jaimie Okeefe on 01-17-2025 White blood cell count 0-5 SEEN /hpf 0-5 [facility] .Auto Diffon 01-16-2025 Basophil, Absolute 0.1 10 3/mcL Normal 0.0-0.3 [facility] Comment on above: Performed By: #### M DW, TROPHS, CMP, PBNP, ADIFF, ANEU, MG, GFR, CBC, TSH #### [address] [address] Basophils/100 WBC (Bld) 0.9 % Normal 0.0-2.5 [facility] Comment on above: Performed By: #### M DW, TROPHS, CMP, PBNP, ADIFF, ANEU, MG, GFR, CBC, TSH #### [address] [address] Eosinophil, Absolute 0.1 10 3/mcL Normal 0.0-0.7 [facility] Comment on above: Performed By: #### M DW, TROPHS, CMP, PBNP, ADIFF, ANEU, MG, GFR, CBC, TSH #### [address] [address] Eosinophils/100 WBC (Bld) 0.7 % Normal 0.0-6.0 [facility] Comment on above: Performed By: #### M DW, TROPHS, CMP, PBNP, ADIFF, ANEU, MG, GFR, CBC, TSH #### [address] [address] Lymphocyte, Absolute 2.4 10 3/mcL Normal 0.9-4.3 [facility] Comment on above: Performed By: #### M DW, TROPHS, CMP, PBNP, ADIFF, ANEU, MG, GFR, CBC, TSH #### [address] [address] Lymphocytes/100 WBC (Bld) 20.9 % Normal 20.0-40.0 [facility] Comment on above: Performed By: #### M DW, TROPHS, CMP, PBNP, ADIFF, ANEU, MG, GFR, CBC, TSH #### [address] [address] Monocyte, Absolute 0.7 10 3/mcL Normal 0.1-1.4 [facility] Comment on above: Performed By: #### M DW, TROPHS, CMP, PBNP, ADIFF, ANEU, MG, GFR, CBC, TSH #### [address] [address] Monocytes/100 WBC (Bld) 6.6 % Normal 2.0-13.0 [facility] Comment on above: Performed By: #### M DW, TROPHS, CMP, PBNP, ADIFF, ANEU, MG, GFR, CBC, TSH #### [address] [address] Neutrophils/100 WBC (Bld) 70.9 % Normal 50.0-75.0 [facility] Comment on above: Performed By: #### M DW, TROPHS, CMP, PBNP, ADIFF, ANEU, MG, GFR, CBC, TSH #### [address] [address] .GFRon 01-16-2025 Estimated Glomerular Filtration Rate 81 ml/min/1.73sqm Normal [facility] Comment on above: Result Comment: Stages of Chronic Kidney Disease (CKD) Stage [...] race factor to calculate the eGFR results. Performed By: #### M DW, TROPHS, CMP, PBNP, ADIFF, ANEU, MG, GFR, CBC, TSH #### [address] [address] .MDWon 01-16-2025 Monocyte Distribution Width 17.03 Normal 0.00-20.00 [facility] Comment on above: Result Comment: For ED adult patients suspected of sepsis, MDW<=20.0 does not rule out sepsis or risk of sepsis Performed By: #### M DW, TROPHS, CMP, PBNP, ADIFF, ANEU, MG, GFR, CBC, TSH #### [address] [address] .NEUABSon 01-16-2025 Neutrophil, Absolute 8.0 10 3/mcL Normal 2.3-8.1 [facility] Comment on above: Performed By: #### M DW, TROPHS, CMP, PBNP, ADIFF, ANEU, MG, GFR, CBC, TSH #### [address] [address] APTTon 01-16-2025 aPTT Coag (Bld) [Time] 31.3 s Normal 25.0-35.0 [facility] Comment on above: Result Comment: For Heparin anticoagulation therapy, the recommended therapeutic range is: 45.4-75.9 seconds. Patients on heparin therapy may have an extreme result. Performed By: #### M DW, TROPHS, CMP, PBNP, ADIFF, ANEU, MG, GFR, CBC, TSH #### [address] [address] CBCon 01-16-2025 Erythrocyte distribution width (RBC) [Ratio] 15.7 % High 11.5-15.5 [facility] Comment on above: Performed By: #### M DW, TROPHS, CMP, PBNP, ADIFF, ANEU, MG, GFR, CBC, TSH #### [address] [address] Hematocrit (Bld) [Volume fraction] 52.8 % High 40.0-52.0 [facility] Comment on above: Performed By: #### M DW, TROPHS, CMP, PBNP, ADIFF, ANEU, MG, GFR, CBC, TSH #### [address] [address] Hgb 17.8 G/dL High 13.0-17.5 [facility] Comment on above: Performed By: #### M DW, TROPHS, CMP, PBNP, ADIFF, ANEU, MG, GFR, CBC, TSH #### [address] [address] MCH (RBC) [Entitic mass] 29.5 pg Normal 27.0-33.0 [facility] Comment on above: Performed By: #### M DW, TROPHS, CMP, PBNP, ADIFF, ANEU, MG, GFR, CBC, TSH #### [address] [address] MCHC 33.6 G/dL Normal 32.0-36.0 [facility] Comment on above: Performed By: #### M DW, TROPHS, CMP, PBNP, ADIFF, ANEU, MG, GFR, CBC, TSH #### [address] [address] MCV (RBC) [Entitic vol] 87.8 fL Normal 81.0-100.0 [facility] Comment on above: Performed By: #### M DW, TROPHS, CMP, PBNP, ADIFF, ANEU, MG, GFR, CBC, TSH #### [address] [address] Platelet 235 10 3/mcL Normal 150-450 [facility] Comment on above: Performed By: #### M DW, TROPHS, CMP, PBNP, ADIFF, ANEU, MG, GFR, CBC, TSH #### [address] [address] Platelet mean volume (Bld) [Entitic vol] 7.2 fL Normal 6.4-10.5 [facility] Comment on above: Performed By: #### M DW, TROPHS, CMP, PBNP, ADIFF, ANEU, MG, GFR, CBC, TSH #### [address] [address] RBC 6.01 10 6/mcL High 4.50-6.00 [facility] Comment on above: Performed By: #### M DW, TROPHS, CMP, PBNP, ADIFF, ANEU, MG, GFR, CBC, TSH #### [place] [address] WBC 11.3 10 3/mcL High 4.5-10.8 [facility] Comment on above: Performed By: #### M DW, TROPHS, CMP, PBNP, ADIFF, ANEU, MG, GFR, CBC, TSH #### [address] [address] CMPon 01-16-2025 Albumin Level 3.9 G/dL Normal 3.4-4.8 [facility] Comment on above: Performed By: #### M DW, TROPHS, CMP, PBNP, ADIFF, ANEU, MG, GFR, CBC, TSH #### [place] [id number] Albumin/Globulin [Mass ratio] 1.0 {ratio} Low 1.1-2.5 [facility] Comment on above: Performed By: #### M DW, TROPHS, CMP, PBNP, ADIFF, ANEU, MG, GFR, CBC, TSH #### [address] [address] ALP [Catalytic activity/Vol] 89 U/L Normal 40-135 [facility] Comment on above: Performed By: #### M DW, TROPHS, CMP, PBNP, ADIFF, ANEU, MG, GFR, CBC, TSH #### [address] [address] ALT [Catalytic activity/Vol] 54 U/L Normal 16-63 [facility] Comment on above: Performed By: #### M DW, TROPHS, CMP, PBNP, ADIFF, ANEU, MG, GFR, CBC, TSH #### [address] [address] AST [Catalytic activity/Vol] 29 U/L Normal 10-40 [facility] Comment on above: Performed By: #### M DW, TROPHS, CMP, PBNP, ADIFF, ANEU, MG, GFR, CBC, TSH #### [address] [address] Bili Total 0.8 mg/dL Normal 0.2-1.0 [facility] Comment on above: Result Comment: Use of this assay is not recommended for patients undergoing treatment with eltrombopag due to the potential for falsely elevated results. Performed By: #### M DW, TROPHS, CMP, PBNP, ADIFF, ANEU, MG, GFR, CBC, TSH #### [address] [address] BUN/Creatinine Ratio 12 ratio Normal 7-27 [facility] Comment on above: Performed By: #### M DW, TROPHS, CMP, PBNP, ADIFF, ANEU, MG, GFR, CBC, TSH #### [address] [address] Calcium [Mass/Vol] 9.1 mg/dL Normal 8.4-10.2 [facility] Comment on above: Performed By: #### M DW, TROPHS, CMP, PBNP, ADIFF, ANEU, MG, GFR, CBC, TSH #### [address] [address] Chloride [Moles/Vol] 103 mmol/L Normal 98-107 [facility] Comment on above: Performed By: #### M DW, TROPHS, CMP, PBNP, ADIFF, ANEU, MG, GFR, CBC, TSH #### [address] [address] CO2 [Moles/Vol] 20 mmol/L Low 23-31 [facility] Comment on above: Performed By: #### M DW, TROPHS, CMP, PBNP, ADIFF, ANEU, MG, GFR, CBC, TSH #### [address] [address] Creatinine [Mass/Vol] 1.03 mg/dL Normal 0.67-1.17 [facility] Comment on above: Performed By: #### M DW, TROPHS, CMP, PBNP, ADIFF, ANEU, MG, GFR, CBC, TSH #### [address] [address] Electrolyte Balance 15.0 mEq/L Normal 4.0-15.0 [facility] Comment on above: Performed By: #### M DW, TROPHS, CMP, PBNP, ADIFF, ANEU, MG, GFR, CBC, TSH #### [address] [address] Globulin 4.1 G/dL Normal 2.7-4.4 [facility] Comment on above: Performed By: #### M DW, TROPHS, CMP, PBNP, ADIFF, ANEU, MG, GFR, CBC, TSH #### [address] [address] Glucose [Mass/Vol] 169 mg/dL High 80-115 [facility] Comment on above: Performed By: #### M DW, TROPHS, CMP, PBNP, ADIFF, ANEU, MG, GFR, CBC, TSH #### [address] [address] Potassium [Moles/Vol] 4.0 mmol/L Normal 3.5-5.1 [facility] Comment on above: Performed By: #### M DW, TROPHS, CMP, PBNP, ADIFF, ANEU, MG, GFR, CBC, TSH #### [address] [address] Sodium [Moles/Vol] 138 mmol/L Normal 136-145 [facility] Comment on above: Performed By: #### M DW, TROPHS, CMP, PBNP, ADIFF, ANEU, MG, GFR, CBC, TSH #### [place] [address] [place], [place] [address] Total Protein 8.0 G/dL Normal 6.4-8.2 [facility] Comment on above: Performed By: #### M DW, TROPHS, CMP, PBNP, ADIFF, ANEU, MG, GFR, CBC, TSH #### [place] [id number] [place], [place] [address] Urea nitrogen [Mass/Vol] 12 mg/dL Normal 7-18 [facility] Comment on above: Performed By: #### M DW, TROPHS, CMP, PBNP, ADIFF, ANEU, MG, GFR, CBC, TSH #### [place] [id number] [place], [place] [address] CT ABDOMEN/PELVIS W/O CONTRA STon 01-16-2025 CT ABDOMEN/PELVIS W/O CONTRAST ORIGINAL EXAMINATION: CT OF THE ABDOMEN AND [...] for Exam: Abdominal pain, acute, nonlocalized FINDINGS: Aefn-uu-fuqrigiw degenerative changes are noted in the spine. [...] Date: 01/16/2025 12:27:50 PM Ordering Provider: ANUP Sarabia [facility] LABORATORYOrdered By: Homero Rai on 01-16-2025 Appearance [...] [facility] Comment on above: Interpretive Data: Arturo choe [employer] (CHEST, 1991, 102:312S-25S) recommended therapeutic range for oral anticoagulant [...] ng/L Male: 0-76 ng/L Testing performed on SlapVid using a homogeneous sandwich chemiluminescent immunoassay based on Liqueo technology. TSH Qn 3.56 m[IU]/L Normal 0.36 - 3.74 mcIU/mL AO ADM SS Urea nitrogen [Mass/Vol] 12 mg/dL Normal 7 - 18 mg/dL AO ADM SS Urea nitrogen/Creatinine [Mass ratio] 12 ratio Normal 7 - 27 ratio AO ADM SS WBC (Bld) [#/Vol] 11.3 103/mcL High 4.5 - 10.8 10^3/mcL AO Workflow SS LIPon 01-16-2025 Lipase Level 40 U/L Normal 16-77 [facility] Comment on above: Performed By: #### M DW, TROPHS, CMP, PBNP, ADIFF, ANEU, MG, GFR, CBC, TSH #### [address] [address] MGon 01-16-2025 Magnesium [Mass/Vol] 1.8 mg/dL Normal 1.8-2.4 [facility] Comment on above: Performed By: #### M DW, TROPHS, CMP, PBNP, ADIFF, ANEU, MG, GFR, CBC, TSH #### [address] [address] PBNPon 01-16-2025 Natriuretic peptide B (Bld) [Mass/Vol] 784 pg/mL High 0-125 [facility] Comment on above: Result Comment: NT-p roBNP results of less than 300 pg/mL effectively rules out acute congestive heart failure with 99% negative predictive value. Performed By: #### M DW, TROPHS, CMP, PBNP, ADIFF, ANEU, MG, GFR, CBC, TSH #### [address] [address] PROon 01-16-2025 PT Coag (PPP) [Time] 11.8 s Normal 9.0-14.4 [facility] Comment on above: Performed By: #### M DW, TROPHS, CMP, PBNP, ADIFF, ANEU, MG, GFR, CBC, TSH #### [address] [address] PT International Ratio 1.0 Normal [facility] Comment on above: Result Comment: [employer] (CHEST, 1992, [id number]) recommended therapeutic range for oral anticoagulant therapy is: LOW RISK: Prophylaxis of venous thrombosis INR: 2.0-3.0 Treatment of pulmonary embolism 2.0-3.0 Prevention of systemic embolism 2.0-3.0 HIGH RISK: Mechanical prosthetic valves 2.5-3.5 Performed By: #### M KAIT, TROPHS, CMP, PBNP, ADIFF, ANEU, MG, GFR, CBC, TSH #### [address] [address] TROPHSon 01-16-2025 High Sensitivity Troponin I 13 ng/L Normal 0-76 [facility] Comment on above: Result Comment: High Sensitive Troponin I Reference Ranges: Female: 0-51 ng/L Male: 0-76 ng/L Testing performed on SlapVid using a homogeneous sandwich chemiluminescent immunoassay based on Liqueo technology. Performed By: #### M DW, TROPHS, CMP, PBNP, ADIFF, ANEU, MG, GFR, CBC, TSH #### [address] [address] TSHon 01-16-2025 TSH Qn 3.56 m[IU]/L Normal 0.36-3.74 [facility] Comment on above: Performed By: #### M DW, TROPHS, CMP, PBNP, ADIFF, ANEU, MG, GFR, CBC, TSH #### [address] [address] UAon 01-16-2025 Color (U) Yellow Normal [facility] Comment on above: Performed By: #### M DW, TROPHS, CMP, PBNP, ADIFF, ANEU, MG, GFR, CBC, TSH #### [place] [address] Glucose (U) [Mass/Vol] Negative Normal Negative [facility] Comment on above: Performed By: #### M DW, TROPHS, CMP, PBNP, ADIFF, ANEU, MG, GFR, CBC, TSH #### [address] [address] Ketones Ql (U) 40 mg/dL Abnormal Negative [facility] Comment on above: Performed By: #### M DW, TROPHS, CMP, PBNP, ADIFF, ANEU, MG, GFR, CBC, TSH #### [place] [address] UA Appear Slightly Cloudy Abnormal Clear [facility] Comment on above: Performed By: #### M DW, TROPHS, CMP, PBNP, ADIFF, ANEU, MG, GFR, CBC, TSH #### [address] [address] UA Bili Moderate Abnormal Negative [facility] Comment on above: Performed By: #### M DW, TROPHS, CMP, PBNP, ADIFF, ANEU, MG, GFR, CBC, TSH #### [address] [address] UA Blood Small Abnormal Negative [facility] Comment on above: Performed By: #### M DW, TROPHS, CMP, PBNP, ADIFF, ANEU, MG, GFR, CBC, TSH #### [address] [address] UA Leuk Est Negative Normal Negative [facility] Comment on above: Performed By: #### M DW, TROPHS, CMP, PBNP, ADIFF, ANEU, MG, GFR, CBC, TSH #### [address] [address] UA Nitrite Negative Normal Negative [facility] Comment on above: Performed By: #### M DW, TROPHS, CMP, PBNP, ADIFF, ANEU, MG, GFR, CBC, TSH #### [address] [address] UA pH 6.0 Normal 5.0 - 8.0 [facility] Comment on above: Performed By: #### M DW, TROPHS, CMP, PBNP, ADIFF, ANEU, MG, GFR, CBC, TSH #### [place] [address] UA Protein 100 mg/dL Abnormal Negative [facility] Comment on above: Performed By: #### M DW, TROPHS, CMP, PBNP, ADIFF, ANEU, MG, GFR, CBC, TSH #### [place] [address] UA Spec Grav >=1.030 Abnormal 1.015-1.02 5 [facility] Comment on above: Performed By: #### M DW, TROPHS, CMP, PBNP, ADIFF, ANEU, MG, GFR, CBC, TSH #### [address] [address] UA Specimen Type Clean Catch Normal [facility] Comment on above: Performed By: #### M DW, TROPHS, CMP, PBNP, ADIFF, ANEU, MG, GFR, CBC, TSH #### [address] [address] UA Urobilinogen 0.2 E.U./dL Normal 0.2-1.0 [facility] Comment on above: Performed By: #### M DW, TROPHS, CMP, PBNP, ADIFF, ANEU, MG, GFR, CBC, TSH #### [address] [address] UAMICon 01-16-2025 UA Bacteria Trace Abnormal Negative [facility] Comment on above: Performed By: #### M DW, TROPHS, CMP, PBNP, ADIFF, ANEU, MG, GFR, CBC, TSH #### [address] [address] UA Mucous 1+ /hpf Normal [facility] Comment on above: Performed By: #### M DW, TROPHS, CMP, PBNP, ADIFF, ANEU, MG, GFR, CBC, TSH #### [place] [address] UA RBC 3-5 Abnormal 0-2 [facility] Comment on above: Performed By: #### M DW, TROPHS, CMP, PBNP, ADIFF, ANEU, MG, GFR, CBC, TSH #### [place] [address] UA Squam Epithelial 10-20 Normal 0-20 [facility] Comment on above: Performed By: #### M DW, TROPHS, CMP, PBNP, ADIFF, ANEU, MG, GFR, CBC, TSH #### [place] [address] UA WBC 0-2 Normal 0-5 [facility] Comment on above: Performed By: #### M DW, TROPHS, CMP, PBNP, ADIFF, ANEU, MG, GFR, CBC, TSH #### [place] [address] XR CHEST 1 VIEWon 01-16-2025 XR CHEST 1 VIEW ORIGINAL EXAMINATION: ONE XRAY VIEW OF THE [...] Date: 01/16/2025 12:24:36 PM Ordering Provider: ANUP Sarabia [facility] Basic Metabolic Profile (BMP )on 12-17-2024 BUN Normal 4-19 [facility] Comment on above: Result Comment: Canc elled via OM: Order cancelled - Patient discharged Performed By: #### L 100.0100, L500.2500 ####[facility] [address] [place], [address] BUN/CRE Normal 10-20 [facility] Comment on above: Result Comment: Canc elled via OM: Order cancelled - Patient discharged Performed By: #### L 100.0100, L500.2500 ####[facility] [address] [place], [address] Calcium Normal 7.6-11.0 [facility] Comment on above: Result Comment: Canc elled via OM: Order cancelled - Patient discharged Performed By: #### L 100.0100, L500.2500 ####[facility] [address] [place], [address] CL Normal 98-108 [facility] Comment on above: Result Comment: Canc elled via OM: Order cancelled - Patient discharged Performed By: #### L 100.0100, L500.2500 ####[facility] [address] [place], [address] CO2 Normal 21.0-32.0 [facility] Comment on above: Result Comment: Canc elled via OM: Order cancelled - Patient discharged Performed By: #### L 100.0100, L500.2500 ####[facility] [address] [place], [address] CREAT,SERUM Normal 0.70-1.20 [facility] Comment on above: Result Comment: Canc elled via OM: Order cancelled - Patient discharged Performed By: #### L 100.0100, L500.2500 ####[facility] [address] [place], [address] eGFR Normal >60 [facility] Comment on above: Result Comment: Canc elled via OM: Order cancelled - Patient discharged Performed By: #### L 100.0100, L500.2500 ####[facility] [address] [place], [address] GAP Normal 5-15 [facility] Comment on above: Result Comment: Canc elled via OM: Order cancelled - Patient discharged Performed By: #### L 100.0100, L500.2500 ####[facility] [address] [place], [address] GLU Normal 70-99 [facility] Comment on above: Result Comment: Canc elled via OM: Order cancelled - Patient discharged Performed By: #### L 100.0100, L500.2500 ####[facility] [address] [place], [address] Potassium Normal 3.3-5.1 [facility] Comment on above: Result Comment: Canc elled via OM: Order cancelled - Patient discharged Performed By: #### L 100.0100, L500.2500 ####[facility] [address] [place], [address] Basic Metabolic Profile (BMP) Normal 133-145 [facility] Comment on above: Result Comment: Canc elled via OM: Order cancelled - Patient discharged Performed By: #### L 100.0100, L500.2500 ####[facility] [address] [place], [address] CBC W/Diff, Automatedon 06-2 Absolute Neut Normal 2.0-7.7 [facility] Comment on above: Result Comment: Canc elled via OM: Order cancelled - Patient discharged Performed By: #### L 100.0100, L500.2500 ####[facility] [address] [place], [address] HCT Normal 40-54 [facility] Comment on above: Result Comment: Canc elled via OM: Order cancelled - Patient discharged Performed By: #### L 100.0100, L500.2500 ####[facility] [address] [place], [address] HGB Normal 13.0-16.5 [facility] Comment on above: Result Comment: Canc elled via OM: Order cancelled - Patient discharged Performed By: #### L 100.0100, L500.2500 ####[facility] [address] [place], [address] MCH Normal 27.0-32.0 [facility] Comment on above: Result Comment: Canc elled via OM: Order cancelled - Patient discharged Performed By: #### L 100.0100, L500.2500 ####[facility] [address] [place], [address] MCHC Normal 32-36 [facility] Comment on above: Result Comment: Canc elled via OM: Order cancelled - Patient discharged Performed By: #### L 100.0100, L500.2500 ####[facility] [address] [place], [address] MCV Normal 80-94 [facility] Comment on above: Result Comment: Canc elled via OM: Order cancelled - Patient discharged Performed By: #### L 100.0100, L500.2500 ####[facility] [address] [place], [address] NEUT% Normal 47-70 [facility] Comment on above: Result Comment: Canc elled via OM: Order cancelled - Patient discharged Performed By: #### L 100.0100, L500.2500 ####[facility] [address] [place], [address] PLT Normal 150-450 [facility] Comment on above: Result Comment: Canc elled via OM: Order cancelled - Patient discharged Performed By: #### L 100.0100, L500.2500 ####[facility] [address] [place], [address] RBC Normal 4.6-6.2 [facility] Comment on above: Result Comment: Canc elled via OM: Order cancelled - Patient discharged Performed By: #### L 100.0100, L500.2500 ####[facility] [address] [place], [address] RDW CV Normal 11.6-14.6 [facility] Comment on above: Result Comment: Canc elled via OM: Order cancelled - Patient discharged Performed By: #### L 100.0100, L500.2500 ####[facility] [address] [place], [address] RDW SD Normal 35.1-43.9 [facility] Comment on above: Result Comment: Canc elled via OM: Order cancelled - Patient discharged Performed By: #### L 100.0100, L500.2500 ####[facility] [address] [place], [address] WBC Normal 4.4-11.0 [facility] Comment on above: Result Comment: Canc elled via OM: Order cancelled - Patient discharged Performed By: #### L 100.0100, L500.2500 ####[facility] [address] [place], [address] Basic Metabolic Profile (BMP )on 12-16-2024 BUN Normal 4-19 [facility] Comment on above: Result Comment: Canc elled via OM: Order cancelled - Patient discharged Performed By: #### L 100.0100, L500.2500 ####[facility] [address] [place], [address] BUN/CRE Normal 10-20 [facility] Comment on above: Result Comment: Canc elled via OM: Order cancelled - Patient discharged Performed By: #### L 100.0100, L500.2500 ####[facility] [address] [place], [address] Calcium Normal 7.6-11.0 [facility] Comment on above: Result Comment: Canc elled via OM: Order cancelled - Patient discharged Performed By: #### L 100.0100, L500.2500 ####[facility] [address] [place], [address] CL Normal 98-108 [facility] Comment on above: Result Comment: Canc elled via OM: Order cancelled - Patient discharged Performed By: #### L 100.0100, L500.2500 ####[facility] [address] [place], [address] CO2 Normal 21.0-32.0 [facility] Comment on above: Result Comment: Canc elled via OM: Order cancelled - Patient discharged Performed By: #### L 100.0100, L500.2500 ####[facility] [address] [place], [address] CREAT,SERUM Normal 0.70-1.20 [facility] Comment on above: Result Comment: Canc elled via OM: Order cancelled - Patient discharged Performed By: #### L 100.0100, L500.2500 ####[facility] [address] [place], [address] eGFR Normal >60 [facility] Comment on above: Result Comment: Canc elled via OM: Order cancelled - Patient discharged Performed By: #### L 100.0100, L500.2500 ####[facility] [address] [place], [address] GAP Normal 5-15 [facility] Comment on above: Result Comment: Canc elled via OM: Order cancelled - Patient discharged Performed By: #### L 100.0100, L500.2500 ####[facility] [address] [place], [address] GLU Normal 70-99 [facility] Comment on above: Result Comment: Canc elled via OM: Order cancelled - Patient discharged Performed By: #### L 100.0100, L500.2500 ####[facility] [address] [place], [address] Potassium Normal 3.3-5.1 [facility] Comment on above: Result Comment: Canc elled via OM: Order cancelled - Patient discharged Performed By: #### L 100.0100, L500.2500 ####[facility] [address] [place], [address] Basic Metabolic Profile (BMP) Normal 133-145 [facility] Comment on above: Result Comment: Canc elled via OM: Order cancelled - Patient discharged Performed By: #### L 100.0100, L500.2500 ####[facility] [address] [place], [address] CBC W/Diff, Automatedon 06-2 -2024 Absolute Neut Normal 2.0-7.7 [facility] Comment on above: Result Comment: Canc elled via OM: Order cancelled - Patient discharged Performed By: #### L 100.0100, L500.2500 ####[facility] [address] [place], [address] HCT Normal 40-54 [facility] Comment on above: Result Comment: Canc elled via OM: Order cancelled - Patient discharged Performed By: #### L 100.0100, L500.2500 ####[facility] [address] [place], [address] HGB Normal 13.0-16.5 [facility] Comment on above: Result Comment: Canc elled via OM: Order cancelled - Patient discharged Performed By: #### L 100.0100, L500.2500 ####[facility] [address] [place], [address] MCH Normal 27.0-32.0 [facility] Comment on above: Result Comment: Canc elled via OM: Order cancelled - Patient discharged Performed By: #### L 100.0100, L500.2500 ####[facility] [address] [place], [address] MCHC Normal 32-36 [facility] Comment on above: Result Comment: Canc elled via OM: Order cancelled - Patient discharged Performed By: #### L 100.0100, L500.2500 ####[facility] [address] [place], [address] MCV Normal 80-94 [facility] Comment on above: Result Comment: Canc elled via OM: Order cancelled - Patient discharged Performed By: #### L 100.0100, L500.2500 ####[facility] [address] [place], [address] NEUT% Normal 47-70 [facility] Comment on above: Result Comment: Canc elled via OM: Order cancelled - Patient discharged Performed By: #### L 100.0100, L500.2500 ####[facility] [address] [place], [address] PLT Normal 150-450 [facility] Comment on above: Result Comment: Canc elled via OM: Order cancelled - Patient discharged Performed By: #### L 100.0100, L500.2500 ####[facility] [address] [place], [address] RBC Normal 4.6-6.2 [facility] Comment on above: Result Comment: Canc elled via OM: Order cancelled - Patient discharged Performed By: #### L 100.0100, L500.2500 ####[facility] [address] [place], [address] RDW CV Normal 11.6-14.6 [facility] Comment on above: Result Comment: Canc elled via OM: Order cancelled - Patient discharged Performed By: #### L 100.0100, L500.2500 ####[facility] [address] [place], [address] RDW SD Normal 35.1-43.9 [facility] Comment on above: Result Comment: Canc elled via OM: Order cancelled - Patient discharged Performed By: #### L 100.0100, L500.2500 ####[facility] [address] [place], [address] WBC Normal 4.4-11.0 [facility] Comment on above: Result Comment: Canc elled via OM: Order cancelled - Patient discharged Performed By: #### L 100.0100, L500.2500 ####[facility] [address] [place], [address] Basic Metabolic Profile (BMP )on 12-15-2024 BUN Normal 4-19 [facility] Comment on above: Result Comment: Canc elled via OM: Order cancelled - Patient discharged Performed By: #### L 500.2500, L100.0100 ####[facility] [address] [place], [address] BUN/CRE Normal 10-20 [facility] Comment on above: Result Comment: Canc elled via OM: Order cancelled - Patient discharged Performed By: #### L 500.2500, L100.0100 ####[facility] [address] [place], [address] Calcium Normal 7.6-11.0 [facility] Comment on above: Result Comment: Canc elled via OM: Order cancelled - Patient discharged Performed By: #### L 500.2500, L100.0100 ####[facility] [address] [place], [address] CL Normal 98-108 [facility] Comment on above: Result Comment: Canc elled via OM: Order cancelled - Patient discharged Performed By: #### L 500.2500, L100.0100 ####[facility] [address] [place], [address] CO2 Normal 21.0-32.0 [facility] Comment on above: Result Comment: Canc elled via OM: Order cancelled - Patient discharged Performed By: #### L 500.2500, L100.0100 ####[facility] [address] [place], [address] CREAT,SERUM Normal 0.70-1.20 [facility] Comment on above: Result Comment: Canc elled via OM: Order cancelled - Patient discharged Performed By: #### L 500.2500, L100.0100 ####[facility] [address] [place], [address] eGFR Normal >60 [facility] Comment on above: Result Comment: Canc elled via OM: Order cancelled - Patient discharged Performed By: #### L 500.2500, L100.0100 ####[facility] [address] [place], [address] GAP Normal 5-15 [facility] Comment on above: Result Comment: Canc elled via OM: Order cancelled - Patient discharged Performed By: #### L 500.2500, L100.0100 ####[facility] [address] [place], [address] GLU Normal 70-99 [facility] Comment on above: Result Comment: Canc elled via OM: Order cancelled - Patient discharged Performed By: #### L 500.2500, L100.0100 ####[facility] [address] [place], [address] Potassium Normal 3.3-5.1 [facility] Comment on above: Result Comment: Canc elled via OM: Order cancelled - Patient discharged Performed By: #### L 500.2500, L100.0100 ####[facility] [address] [place], [address] Basic Metabolic Profile (BMP) Normal 133-145 [facility] Comment on above: Result Comment: Canc elled via OM: Order cancelled - Patient discharged Performed By: #### L 500.2500, L100.0100 ####[facility] [address] [place], [address] CBC W/Diff, Automatedon 06-2 0-2024 Absolute Neut Normal 2.0-7.7 [facility] Comment on above: Result Comment: Canc elled via OM: Order cancelled - Patient discharged Performed By: #### L 500.2500, L100.0100 ####[facility] [address] [place], [address] HCT Normal 40-54 [facility] Comment on above: Result Comment: Canc elled via OM: Order cancelled - Patient discharged Performed By: #### L 500.2500, L100.0100 ####[facility] [address] [place], [address] HGB Normal 13.0-16.5 [facility] Comment on above: Result Comment: Canc elled via OM: Order cancelled - Patient discharged Performed By: #### L 500.2500, L100.0100 ####[facility] [address] [place], [address] MCH Normal 27.0-32.0 [facility] Comment on above: Result Comment: Canc elled via OM: Order cancelled - Patient discharged Performed By: #### L 500.2500, L100.0100 ####[facility] [address] [place], [address] MCHC Normal 32-36 [facility] Comment on above: Result Comment: Canc elled via OM: Order cancelled - Patient discharged Performed By: #### L 500.2500, L100.0100 ####[facility] [address] [place], [address] MCV Normal 80-94 [facility] Comment on above: Result Comment: Canc elled via OM: Order cancelled - Patient discharged Performed By: #### L 500.2500, L100.0100 ####[facility] [address], [address] NEUT% Normal 47-70 [facility] Comment on above: Result Comment: Canc elled via OM: Order cancelled - Patient discharged Performed By: #### L 500.2500, L100.0100 ####[facility] [address] [place], [address] PLT Normal 150-450 [facility] Comment on above: Result Comment: Canc elled via OM: Order cancelled - Patient discharged Performed By: #### L 500.2500, L100.0100 ####[facility] [address] [place], [address] RBC Normal 4.6-6.2 [facility] Comment on above: Result Comment: Canc elled via OM: Order cancelled - Patient discharged Performed By: #### L 500.2500, L100.0100 ####[facility] [address] [place], [address] RDW CV Normal 11.6-14.6 [facility] Comment on above: Result Comment: Canc elled via OM: Order cancelled - Patient discharged Performed By: #### L 500.2500, L100.0100 ####[facility] [address] [place], [address] RDW SD Normal 35.1-43.9 [facility] Comment on above: Result Comment: Canc elled via OM: Order cancelled - Patient discharged Performed By: #### L 500.2500, L100.0100 ####[facility] [address] [place], [address] WBC Normal 4.4-11.0 [facility] Comment on above: Result Comment: Canc elled via OM: Order cancelled - Patient discharged Performed By: #### L 500.2500, L100.0100 ####[facility] [address] [place], [address] Basic Metabolic Profile (BMP )on 12-14-2024 BUN Normal 4-19 [facility] Comment on above: Result Comment: Canc elled via OM: Order cancelled - Patient discharged Performed By: #### L 100.0100, L500.2500 ####[facility] [address] [place], [address] BUN/CRE Normal 10-20 [facility] Comment on above: Result Comment: Canc elled via OM: Order cancelled - Patient discharged Performed By: #### L 100.0100, L500.2500 ####[facility] [address] [place], [address] Calcium Normal 7.6-11.0 [facility] Comment on above: Result Comment: Canc elled via OM: Order cancelled - Patient discharged Performed By: #### L 100.0100, L500.2500 ####[facility] [address] [place], [address] CL Normal 98-108 [facility] Comment on above: Result Comment: Canc elled via OM: Order cancelled - Patient discharged Performed By: #### L 100.0100, L500.2500 ####[facility] [address] [place], [address] CO2 Normal 21.0-32.0 [facility] Comment on above: Result Comment: Canc elled via OM: Order cancelled - Patient discharged Performed By: #### L 100.0100, L500.2500 ####[facility] [facility] [address] [place], [address] CREAT,SERUM Normal 0.70-1.20 [facility] Comment on above: Result Comment: Canc elled via OM: Order cancelled - Patient discharged Performed By: #### L 100.0100, L500.2500 ####[facility] [address] [place], [address] eGFR Normal >60 [facility] Comment on above: Result Comment: Canc elled via OM: Order cancelled - Patient discharged Performed By: #### L 100.0100, L500.2500 ####[facility] [address] [place], [address] GAP Normal 5-15 [facility] Comment on above: Result Comment: Canc elled via OM: Order cancelled - Patient discharged Performed By: #### L 100.0100, L500.2500 ####[facility] [address] [place], [address] GLU Normal 70-99 [facility] Comment on above: Result Comment: Canc elled via OM: Order cancelled - Patient discharged Performed By: #### L 100.0100, L500.2500 ####[facility] [address] [place], [address] Potassium Normal 3.3-5.1 [facility] Comment on above: Result Comment: Canc elled via OM: Order cancelled - Patient discharged Performed By: #### L 100.0100, L500.2500 ####[facility] [address] [place], [address] Basic Metabolic Profile (BMP) Normal 133-145 [facility] Comment on above: Result Comment: Canc elled via OM: Order cancelled - Patient discharged Performed By: #### L 100.0100, L500.2500 ####[facility] [address] [place], [address] CBC W/Diff, Automatedon 06- Absolute Neut Normal 2.0-7.7 [facility] Comment on above: Result Comment: Canc elled via OM: Order cancelled - Patient discharged Performed By: #### L 100.0100, L500.2500 ####[facility] [address] [place], [address] HCT Normal 40-54 [facility] Comment on above: Result Comment: Canc elled via OM: Order cancelled - Patient discharged Performed By: #### L 100.0100, L500.2500 ####[facility] [address] [place], [address] HGB Normal 13.0-16.5 [facility] Comment on above: Result Comment: Canc elled via OM: Order cancelled - Patient discharged Performed By: #### L 100.0100, L500.2500 ####[facility] [address] [place], [address] MCH Normal 27.0-32.0 [facility] Comment on above: Result Comment: Canc elled via OM: Order cancelled - Patient discharged Performed By: #### L 100.0100, L500.2500 ####[facility] [address] [place], [address] MCHC Normal 32-36 [facility] Comment on above: Result Comment: Canc elled via OM: Order cancelled - Patient discharged Performed By: #### L 100.0100, L500.2500 ####[facility] [address] [place], [address] MCV Normal 80-94 [facility] Comment on above: Result Comment: Canc elled via OM: Order cancelled - Patient discharged Performed By: #### L 100.0100, L500.2500 ####[facility] [address] [place], [address] NEUT% Normal 47-70 [facility] Comment on above: Result Comment: Canc elled via OM: Order cancelled - Patient discharged Performed By: #### L 100.0100, L500.2500 ####[facility] [address] [place], [address] PLT Normal 150-450 [facility] Comment on above: Result Comment: Canc elled via OM: Order cancelled - Patient discharged Performed By: #### L 100.0100, L500.2500 ####[facility] [address] [place], [address] RBC Normal 4.6-6.2 [facility] Comment on above: Result Comment: Canc elled via OM: Order cancelled - Patient discharged Performed By: #### L 100.0100, L500.2500 ####[facility] [address] [place], [address] RDW CV Normal 11.6-14.6 [facility] Comment on above: Result Comment: Canc elled via OM: Order cancelled - Patient discharged Performed By: #### L 100.0100, L500.2500 ####[facility] [address] [place], [address] RDW SD Normal 35.1-43.9 [facility] Comment on above: Result Comment: Canc elled via OM: Order cancelled - Patient discharged Performed By: #### L 100.0100, L500.2500 ####[facility] [address] [place], [address] WBC Normal 4.4-11.0 [facility] Comment on above: Result Comment: Canc elled via OM: Order cancelled - Patient discharged Performed By: #### L 100.0100, L500.2500 ####[facility] [address] [place], [address] Basic Metabolic Profile (BMP )on 12-13-2024 BUN Normal 4-19 [facility] Comment on above: Result Comment: Canc elled via OM: Order cancelled - Patient discharged Performed By: #### L 500.2500, L100.0100 ####[facility] [address] [place], [address] BUN/CRE Normal 10-20 [facility] Comment on above: Result Comment: Canc elled via OM: Order cancelled - Patient discharged Performed By: #### L 500.2500, L100.0100 ####[facility] [address] [place], [address] Calcium Normal 7.6-11.0 [facility] Comment on above: Result Comment: Canc elled via OM: Order cancelled - Patient discharged Performed By: #### L 500.2500, L100.0100 ####[facility] [address] [place], [address] CL Normal 98-108 [facility] Comment on above: Result Comment: Canc elled via OM: Order cancelled - Patient discharged Performed By: #### L 500.2500, L100.0100 ####[facility] [address] [place], [address] CO2 Normal 21.0-32.0 [facility] Comment on above: Result Comment: Canc elled via OM: Order cancelled - Patient discharged Performed By: #### L 500.2500, L100.0100 ####[facility] [address] [place], [address] CREAT,SERUM Normal 0.70-1.20 [facility] Comment on above: Result Comment: Canc elled via OM: Order cancelled - Patient discharged Performed By: #### L 500.2500, L100.0100 ####[facility] [address] [place], [address] eGFR Normal >60 [facility] Comment on above: Result Comment: Canc elled via OM: Order cancelled - Patient discharged Performed By: #### L 500.2500, L100.0100 ####[facility] [address] [place], [address] GAP Normal 5-15 [facility] Comment on above: Result Comment: Canc elled via OM: Order cancelled - Patient discharged Performed By: #### L 500.2500, L100.0100 ####[facility] [address] [place], [address] GLU Normal 70-99 [facility] Comment on above: Result Comment: Canc elled via OM: Order cancelled - Patient discharged Performed By: #### L 500.2500, L100.0100 ####[facility] [address] [place], [address] Potassium Normal 3.3-5.1 [facility] Comment on above: Result Comment: Canc elled via OM: Order cancelled - Patient discharged Performed By: #### L 500.2500, L100.0100 ####[facility] [address] [place], [address] Basic Metabolic Profile (BMP) Normal 133-145 [facility] Comment on above: Result Comment: Canc elled via OM: Order cancelled - Patient discharged Performed By: #### L 500.2500, L100.0100 ####[facility] [address] [place], [address] CBC W/Diff, Automatedon - Absolute Neut Normal 2.0-7.7 [facility] Comment on above: Result Comment: Canc elled via OM: Order cancelled - Patient discharged Performed By: #### L 500.2500, L100.0100 ####[facility] [address] [place], [address] HCT Normal 40-54 [facility] Comment on above: Result Comment: Canc elled via OM: Order cancelled - Patient discharged Performed By: #### L 500.2500, L100.0100 ####[facility] [address] [place], [address] HGB Normal 13.0-16.5 [facility] Comment on above: Result Comment: Canc elled via OM: Order cancelled - Patient discharged Performed By: #### L 500.2500, L100.0100 ####[facility] [address] [place], [address] MCH Normal 27.0-32.0 [facility] Comment on above: Result Comment: Canc elled via OM: Order cancelled - Patient discharged Performed By: #### L 500.2500, L100.0100 ####[facility] [address] [place], [address] MCHC Normal 32-36 [facility] Comment on above: Result Comment: Canc elled via OM: Order cancelled - Patient discharged Performed By: #### L 500.2500, L100.0100 ####[facility] [address] [place], [address] MCV Normal 80-94 [facility] Comment on above: Result Comment: Canc elled via OM: Order cancelled - Patient discharged Performed By: #### L 500.2500, L100.0100 ####[facility] [address] [place], [address] NEUT% Normal 47-70 [facility] Comment on above: Result Comment: Canc elled via OM: Order cancelled - Patient discharged Performed By: #### L 500.2500, L100.0100 ####[facility] [address] [place], [address] PLT Normal 150-450 [facility] Comment on above: Result Comment: Canc elled via OM: Order cancelled - Patient discharged Performed By: #### L 500.2500, L100.0100 ####[facility] [address] [place], [address] RBC Normal 4.6-6.2 [facility] Comment on above: Result Comment: Canc elled via OM: Order cancelled - Patient discharged Performed By: #### L 500.2500, L100.0100 ####[facility] [address] [place], [address] RDW CV Normal 11.6-14.6 [facility] Comment on above: Result Comment: Canc elled via OM: Order cancelled - Patient discharged Performed By: #### L 500.2500, L100.0100 ####[facility] [address] [place], [address] RDW SD Normal 35.1-43.9 [facility] Comment on above: Result Comment: Canc elled via OM: Order cancelled - Patient discharged Performed By: #### L 500.2500, L100.0100 ####[facility] [address] [place], [address] WBC Normal 4.4-11.0 [facility] Comment on above: Result Comment: Canc elled via OM: Order cancelled - Patient discharged Performed By: #### L 500.2500, L100.0100 ####[facility] [address] [place], [address] Basic Metabolic Profile (BMP )on 12-12-2024 BUN Normal 4-19 [facility] Comment on above: Result Comment: Canc elled via OM: Order cancelled - Patient discharged Performed By: #### L 500.2500, L100.0100 ####[facility] [address] [place], [address] BUN/CRE Normal 10-20 [facility] Comment on above: Result Comment: Canc elled via OM: Order cancelled - Patient discharged Performed By: #### L 500.2500, L100.0100 ####[facility] [address] [place], [address] Calcium Normal 7.6-11.0 [facility] Comment on above: Result Comment: Canc elled via OM: Order cancelled - Patient discharged Performed By: #### L 500.2500, L100.0100 ####[facility] [address], [address] CL Normal 98-108 [facility] Comment on above: Result Comment: Canc elled via OM: Order cancelled - Patient discharged Performed By: #### L 500.2500, L100.0100 ####[facility] [address], [address] CO2 Normal 21.0-32.0 [facility] Comment on above: Result Comment: Canc elled via OM: Order cancelled - Patient discharged Performed By: #### L 500.2500, L100.0100 ####[facility] [address] [place], [address] CREAT,SERUM Normal 0.70-1.20 [facility] Comment on above: Result Comment: Canc elled via OM: Order cancelled - Patient discharged Performed By: #### L 500.2500, L100.0100 ####[facility] [address] [place], [address] eGFR Normal >60 [facility] Comment on above: Result Comment: Canc elled via OM: Order cancelled - Patient discharged Performed By: #### L 500.2500, L100.0100 ####[facility] [address] [place], [address] GAP Normal 5-15 [facility] Comment on above: Result Comment: Canc elled via OM: Order cancelled - Patient discharged Performed By: #### L 500.2500, L100.0100 ####[facility] [address] [place], [address] GLU Normal 70-99 [facility] Comment on above: Result Comment: Canc elled via OM: Order cancelled - Patient discharged Performed By: #### L 500.2500, L100.0100 ####[facility] [address] [place], [address] Potassium Normal 3.3-5.1 [facility] Comment on above: Result Comment: Canc elled via OM: Order cancelled - Patient discharged Performed By: #### L 500.2500, L100.0100 ####[facility] [address] [place], [address] Basic Metabolic Profile (BMP) Normal 133-145 [facility] Comment on above: Result Comment: Canc elled via OM: Order cancelled - Patient discharged Performed By: #### L 500.2500, L100.0100 ####[facility] [address] [place], [address] CBC W/Diff, Automatedon 06-1 Absolute Neut Normal 2.0-7.7 [facility] Comment on above: Result Comment: Canc elled via OM: Order cancelled - Patient discharged Performed By: #### L 500.2500, L100.0100 ####[facility] [address] [place], [address] HCT Normal 40-54 [facility] Comment on above: Result Comment: Canc elled via OM: Order cancelled - Patient discharged Performed By: #### L 500.2500, L100.0100 ####[facility] [address] [place], [address] HGB Normal 13.0-16.5 [facility] Comment on above: Result Comment: Canc elled via OM: Order cancelled - Patient discharged Performed By: #### L 500.2500, L100.0100 ####[facility] [address] [place], [address] MCH Normal 27.0-32.0 [facility] Comment on above: Result Comment: Canc elled via OM: Order cancelled - Patient discharged Performed By: #### L 500.2500, L100.0100 ####[facility] [address] [place], [address] MCHC Normal 32-36 [facility] Comment on above: Result Comment: Canc elled via OM: Order cancelled - Patient discharged Performed By: #### L 500.2500, L100.0100 ####[facility] [address] [place], [address] MCV Normal 80-94 [facility] Comment on above: Result Comment: Canc elled via OM: Order cancelled - Patient discharged Performed By: #### L 500.2500, L100.0100 ####[facility] [address] [place], [address] NEUT% Normal 47-70 [facility] Comment on above: Result Comment: Canc elled via OM: Order cancelled - Patient discharged Performed By: #### L 500.2500, L100.0100 ####[facility] [address] [place], [address] PLT Normal 150-450 [facility] Comment on above: Result Comment: Canc elled via OM: Order cancelled - Patient discharged Performed By: #### L 500.2500, L100.0100 ####[facility] [address] [place], [address] RBC Normal 4.6-6.2 [facility] Comment on above: Result Comment: Canc elled via OM: Order cancelled - Patient discharged Performed By: #### L 500.2500, L100.0100 ####[facility] [address] [place], [address] RDW CV Normal 11.6-14.6 [facility] Comment on above: Result Comment: Canc elled via OM: Order cancelled - Patient discharged Performed By: #### L 500.2500, L100.0100 ####[facility] [address] [place], [address] RDW SD Normal 35.1-43.9 [facility] Comment on above: Result Comment: Canc elled via OM: Order cancelled - Patient discharged Performed By: #### L 500.2500, L100.0100 ####[facility] [address] [place], [address] WBC Normal 4.4-11.0 [facility] Comment on above: Result Comment: Canc elled via OM: Order cancelled - Patient discharged Performed By: #### L 500.2500, L100.0100 ####[facility] [address] [place], [address] Basic Metabolic Profile (BMP )on 12-11-2024 BUN Normal 4-19 [facility] Comment on above: Result Comment: Canc elled via OM: Order cancelled - Patient discharged Performed By: #### L 500.2500, L100.0100 ####[facility] [address] [place], [address] BUN/CRE Normal 10-20 [facility] Comment on above: Result Comment: Canc elled via OM: Order cancelled - Patient discharged Performed By: #### L 500.2500, L100.0100 ####[facility] [address] [place], [address] Calcium Normal 7.6-11.0 [facility] Comment on above: Result Comment: Canc elled via OM: Order cancelled - Patient discharged Performed By: #### L 500.2500, L100.0100 ####[facility] [address] [place], [address] CL Normal 98-108 [facility] Comment on above: Result Comment: Canc elled via OM: Order cancelled - Patient discharged Performed By: #### L 500.2500, L100.0100 ####[facility] [address] [place], [address] CO2 Normal 21.0-32.0 [facility] Comment on above: Result Comment: Canc elled via OM: Order cancelled - Patient discharged Performed By: #### L 500.2500, L100.0100 ####[facility] [address] [place], [address] CREAT,SERUM Normal 0.70-1.20 [facility] Comment on above: Result Comment: Canc elled via OM: Order cancelled - Patient discharged Performed By: #### L 500.2500, L100.0100 ####[facility] [address] [place], [address] eGFR Normal >60 [facility] Comment on above: Result Comment: Canc elled via OM: Order cancelled - Patient discharged Performed By: #### L 500.2500, L100.0100 ####[facility] [address] [place], [address] GAP Normal 5-15 [facility] Comment on above: Result Comment: Canc elled via OM: Order cancelled - Patient discharged Performed By: #### L 500.2500, L100.0100 ####[facility] [address] [place], [address] GLU Normal 70-99 [facility] Comment on above: Result Comment: Canc elled via OM: Order cancelled - Patient discharged Performed By: #### L 500.2500, L100.0100 ####[facility] [address] [place], [address] Potassium Normal 3.3-5.1 [facility] Comment on above: Result Comment: Canc elled via OM: Order cancelled - Patient discharged Performed By: #### L 500.2500, L100.0100 ####[facility] [address] [place], [address] Basic Metabolic Profile (BMP) Normal 133-145 [facility] Comment on above: Result Comment: Canc elled via OM: Order cancelled - Patient discharged Performed By: #### L 500.2500, L100.0100 ####[facility] [address] [place], [address] CBC W/Diff, Automatedon 06- Absolute Neut Normal 2.0-7.7 [facility] Comment on above: Result Comment: Canc elled via OM: Order cancelled - Patient discharged Performed By: #### L 500.2500, L100.0100 ####[facility] [address] [place], [address] HCT Normal 40-54 [facility] Comment on above: Result Comment: Canc elled via OM: Order cancelled - Patient discharged Performed By: #### L 500.2500, L100.0100 ####[facility] [address] [place], [address] HGB Normal 13.0-16.5 [facility] Comment on above: Result Comment: Canc elled via OM: Order cancelled - Patient discharged Performed By: #### L 500.2500, L100.0100 ####[facility] [address] [place], [address] MCH Normal 27.0-32.0 [facility] Comment on above: Result Comment: Canc elled via OM: Order cancelled - Patient discharged Performed By: #### L 500.2500, L100.0100 ####[facility] [address] [place], [address] MCHC Normal 32-36 [facility] Comment on above: Result Comment: Canc elled via OM: Order cancelled - Patient discharged Performed By: #### L 500.2500, L100.0100 ####[facility] [address] [place], [address] MCV Normal 80-94 [facility] Comment on above: Result Comment: Canc elled via OM: Order cancelled - Patient discharged Performed By: #### L 500.2500, L100.0100 ####[facility] [address] [place], [address] NEUT% Normal 47-70 [facility] Comment on above: Result Comment: Canc elled via OM: Order cancelled - Patient discharged Performed By: #### L 500.2500, L100.0100 ####[facility] [address] [place], [address] PLT Normal 150-450 [facility] Comment on above: Result Comment: Canc elled via OM: Order cancelled - Patient discharged Performed By: #### L 500.2500, L100.0100 ####[facility] [address] [place], [address] RBC Normal 4.6-6.2 [facility] Comment on above: Result Comment: Canc elled via OM: Order cancelled - Patient discharged Performed By: #### L 500.2500, L100.0100 ####[facility] [address] [place], [address] RDW CV Normal 11.6-14.6 [facility] Comment on above: Result Comment: Canc elled via OM: Order cancelled - Patient discharged Performed By: #### L 500.2500, L100.0100 ####[facility] [address] [place], [address] RDW SD Normal 35.1-43.9 [facility] Comment on above: Result Comment: Canc elled via OM: Order cancelled - Patient discharged Performed By: #### L 500.2500, L100.0100 ####[facility] [address] [place], [address] WBC Normal 4.4-11.0 [facility] Comment on above: Result Comment: Canc elled via OM: Order cancelled - Patient discharged Performed By: #### L 500.2500, L100.0100 ####[facility] [address] [place], [address] Urine Cultureon 12-11-2024 URC Culture exhibits no growth. Normal [facility] Comment on above: Performed By: #### M 100.2200, L400.0001 ####[facility] [address] [place], [address] Basic Metabolic Profile (BMP )on 12-10-2024 BUN Normal 4-19 [facility] Comment on above: Order Comment: NO BL OOD PER RN ESPERANZA Result Comment: DISC HARGED Performed By: #### L 100.0100, L500.2500 ####[facility] [address] [place], [address] Result Comment: Canc elled via OM: Order cancelled - Patient discharged BUN/CRE Normal 10-20 [facility] Comment on above: Order Comment: NO BL OOD PER RN ESPERANZA Result Comment: DISC HARGED Performed By: #### L 100.0100, L500.2500 ####[facility] [address] [place], [address] Result Comment: Canc elled via OM: Order cancelled - Patient discharged Calcium Normal 7.6-11.0 [facility] Comment on above: Order Comment: NO BL OOD PER RN ESPERANZA Result Comment: DISC HARGED Performed By: #### L 100.0100, L500.2500 ####[facility] [address] [place], [address] Result Comment: Canc elled via OM: Order cancelled - Patient discharged CL Normal 98-108 [facility] Comment on above: Order Comment: NO BL OOD PER RN ESPERANZA Result Comment: DISC HARGED Performed By: #### L 100.0100, L500.2500 ####[facility] [address] [place], [address] Result Comment: Canc elled via OM: Order cancelled - Patient discharged CO2 Normal 21.0-32.0 [facility] Comment on above: Order Comment: NO BL OOD PER RN ESPERANZA Result Comment: DISC HARGED Performed By: #### L 100.0100, L500.2500 ####[facility] [address] [place], [address] Result Comment: Canc elled via OM: Order cancelled - Patient discharged CREAT,SERUM Normal 0.70-1.20 [facility] Comment on above: Order Comment: NO BL OOD PER RN ESPERANZA Result Comment: DISC HARGED Performed By: #### L 100.0100, L500.2500 ####[facility] [address] [place], [address] Result Comment: Canc elled via OM: Order cancelled - Patient discharged eGFR Normal >60 [facility] Comment on above: Order Comment: NO BL OOD PER RN ESPERANZA Result Comment: DISC HARGED Performed By: #### L 100.0100, L500.2500 ####[facility] [address] [place], [address] Result Comment: Canc elled via OM: Order cancelled - Patient discharged GAP Normal 5-15 [facility] Comment on above: Order Comment: NO BL OOD PER RN ESPERANZA Result Comment: DISC HARGED Performed By: #### L 100.0100, L500.2500 ####[facility] [address] [place], [address] Result Comment: Canc elled via OM: Order cancelled - Patient discharged GLU Normal 70-99 [facility] Comment on above: Order Comment: NO BL OOD PER RN ESPERANZA Result Comment: DISC HARGED Performed By: #### L 100.0100, L500.2500 ####[facility] [address] [place], [address] Result Comment: Canc elled via OM: Order cancelled - Patient discharged Potassium Normal 3.3-5.1 [facility] Comment on above: Order Comment: NO BL OOD PER RN ESPERANZA Result Comment: DISC HARGED Performed By: #### L 100.0100, L500.2500 ####[facility] [address] [place], [address] Result Comment: Canc elled via OM: Order cancelled - Patient discharged Basic Metabolic Profile (BMP) Normal 133-145 [facility] Comment on above: Order Comment: NO BL OOD PER RN ESPERANZA Result Comment: DISC HARGED Performed By: #### L 100.0100, L500.2500 ####[facility] [address] [place], [address] Result Comment: Canc elled via OM: Order cancelled - Patient discharged CBC W/Diff, Automatedon 06- Absolute Neut Normal 2.0-7.7 [facility] Comment on above: Order Comment: NO BL OOD PER RN ESPERANZA- Result Comment: DISC HARGED Performed By: #### L 100.0100, L500.2500 ####[facility] [address] [place], [address] Result Comment: Canc elled via OM: Order cancelled - Patient discharged HCT Normal 40-54 [facility] Comment on above: Order Comment: NO BL OOD PER RN ESPERANZA- Result Comment: DISC HARGED Performed By: #### L 100.0100, L500.2500 ####[facility] [address] [place], [address] Result Comment: Canc elled via OM: Order cancelled - Patient discharged HGB Normal 13.0-16.5 [facility] Comment on above: Order Comment: NO BL OOD PER RN ESPERANZA- Result Comment: DISC HARGED Performed By: #### L 100.0100, L500.2500 ####[facility] [address] [place], [address] Result Comment: Canc elled via OM: Order cancelled - Patient discharged MCH Normal 27.0-32.0 [facility] Comment on above: Order Comment: NO BL OOD PER RN ESPERANZA- Result Comment: DISC HARGED Performed By: #### L 100.0100, L500.2500 ####[facility] [address] [place], [address] Result Comment: Canc elled via OM: Order cancelled - Patient discharged MCHC Normal 32-36 [facility] Comment on above: Order Comment: NO BL OOD PER RN ESPERANZA- Result Comment: DISC HARGED Performed By: #### L 100.0100, L500.2500 ####[facility] [address] [place], [address] Result Comment: Canc elled via OM: Order cancelled - Patient discharged MCV Normal 80-94 [facility] Comment on above: Order Comment: NO BL OOD PER RN ESPERANZA- Result Comment: DISC HARGED Performed By: #### L 100.0100, L500.2500 ####[facility] [address] [place], [address] Result Comment: Canc elled via OM: Order cancelled - Patient discharged NEUT% Normal 47-70 [facility] Comment on above: Order Comment: NO BL OOD PER RN ESPERANZA- Result Comment: DISC HARGED Performed By: #### L 100.0100, L500.2500 ####[facility] [address] [place], [address] Result Comment: Canc elled via OM: Order cancelled - Patient discharged PLT Normal 150-450 [facility] Comment on above: Order Comment: NO BL OOD PER RN ESPERANZA- Result Comment: DISC HARGED Performed By: #### L 100.0100, L500.2500 ####[facility] [address] [place], [address] Result Comment: Canc elled via OM: Order cancelled - Patient discharged RBC Normal 4.6-6.2 [facility] Comment on above: Order Comment: NO BL OOD PER RN ESPERANZA- Result Comment: DISC HARGED Performed By: #### L 100.0100, L500.2500 ####[facility] [address] [place], [address] Result Comment: Canc elled via OM: Order cancelled - Patient discharged RDW CV Normal 11.6-14.6 [facility] Comment on above: Order Comment: NO BL OOD PER RN ESPERANZA- Result Comment: DISC HARGED Performed By: #### L 100.0100, L500.2500 ####[facility] [address] [place], [address] Result Comment: Canc elled via OM: Order cancelled - Patient discharged RDW SD Normal 35.1-43.9 [facility] Comment on above: Order Comment: NO BL OOD PER RN ESPERANZA- Result Comment: DISC HARGED Performed By: #### L 100.0100, L500.2500 ####[facility] [address] [place], [address] Result Comment: Canc elled via OM: Order cancelled - Patient discharged WBC Normal 4.4-11.0 [facility] Comment on above: Order Comment: NO BL OOD PER RN ESPERANZA- Result Comment: DISC HARGED Performed By: #### L 100.0100, L500.2500 ####[facility] [address] [place], [address] Result Comment: Canc elled via OM: Order cancelled - Patient discharged Absolute lymphocyte countOrd ered By: Odilia Burgos on 12-09-2024 Lymphocytes Auto (Unsp spec) [#/Vol] 2.05 10*3/uL 0.83-4.51 [facility] Absolute neutrophil countOrd ered By: Odilia Burgos on 12-09-2024 Neutrophils (Bld) [#/Vol] 9.3 10*3/uL High 2.0-7.7 [facility] Amorphous sediment detection in urine sediment by light microscopyOrdered By: Odilia Burgos on 12-09-2024 Amorphous sediment LM Ql (Urine sed) 1+ [facility] Anion gap in Serum or Plasma Ordered By: Odilia Burgos on 12-09-2024 Anion gap [Moles/Vol] 13 mmol/L 5-15 [facility] Assessment of wrist artery p atency prior to arterial punctureOrdered By: Jose David Georges on 12-09-2024 Arterial patency Wrist artery --pre arterial puncture Positive [facility] Automated lymphocyte count a s percentage of total leukocytesOrdered By: Odilia Burgos on 12-09-2024 Lymphocytes/100 WBC Auto (Unsp spec) 16.7 % Low 19-41 [facility] BUN/creatinine ratioOrdered By: Odilia Burgos on 12-09-2024 Urea nitrogen/Creatinine [Mass ratio] 10.0 mg/mg 10- [facility] Basic Metabolic Profile (BMP )on 12-09-2024 BUN Normal 4-19 [facility] Comment on above: Result Comment: Canc elled via OM: Order cancelled - Patient discharged Performed By: #### L 100.0100, L500.2500 ####[facility] [address] [place], [address] BUN/CRE Normal 10-20 [facility] Comment on above: Result Comment: Canc elled via OM: Order cancelled - Patient discharged Performed By: #### L 100.0100, L500.2500 ####[facility] [address] [place], [address] Calcium Normal 7.6-11.0 [facility] Comment on above: Result Comment: Canc elled via OM: Order cancelled - Patient discharged Performed By: #### L 100.0100, L500.2500 ####[facility] [address] [place], [address] CL Normal 98-108 [facility] Comment on above: Result Comment: Canc elled via OM: Order cancelled - Patient discharged Performed By: #### L 100.0100, L500.2500 ####[facility] [address] [place], [address] CO2 Normal 21.0-32.0 [facility] Comment on above: Result Comment: Canc elled via OM: Order cancelled - Patient discharged Performed By: #### L 100.0100, L500.2500 ####[facility] [address] [place], [address] CREAT,SERUM Normal 0.70-1.20 [facility] Comment on above: Result Comment: Canc elled via OM: Order cancelled - Patient discharged Performed By: #### L 100.0100, L500.2500 ####[facility] [address] [place], [address] eGFR Normal >60 [facility] Comment on above: Result Comment: Canc elled via OM: Order cancelled - Patient discharged Performed By: #### L 100.0100, L500.2500 ####[facility] [address] [place], [address] GAP Normal 5-15 [facility] Comment on above: Result Comment: Canc elled via OM: Order cancelled - Patient discharged Performed By: #### L 100.0100, L500.2500 ####[facility] [address] [place], [address] GLU Normal 70-99 [facility] Comment on above: Result Comment: Canc elled via OM: Order cancelled - Patient discharged Performed By: #### L 100.0100, L500.2500 ####[facility] [address] [place], [address] Potassium Normal 3.3-5.1 [facility] Comment on above: Result Comment: Canc elled via OM: Order cancelled - Patient discharged Performed By: #### L 100.0100, L500.2500 ####[facility] [address] [place], [address] Basic Metabolic Profile (BMP) Normal 133-145 [facility] Comment on above: Result Comment: Canc elled via OM: Order cancelled - Patient discharged Performed By: #### L 100.0100, L500.2500 ####[facility] [address] [place], [address] Basophil percentageOrdered B y: Odilia Burgos on 12-09-2024 Basophils/100 WBC (Bld) 0.5 % 0-1 [facility] Bilirubin Test strip Ql (U)O rdered By: Odilia Burgos on 12-09-2024 Bilirubin Ql (U) 3 mg/dL High Negative [facility] Comment on above: COLOR OF URINE MAY A FFECT DIPSTICK RESULTS. Bilirubin, totalOrdered By: Odilia Burgos on 12-09-2024 Bilirubin [Mass/Vol] 0.71 mg/dL 0.00-1.30 [facility] Blood Gases by CPSon 025 OSCAR TEST Positive Normal [facility] Comment on above: Performed By: #### L 9000.0800 ####[facility] [address] [place], [address] Base excess Calc (Bld) [Moles/Vol] -2 mmol/L Normal -2 to +2 [facility] Comment on above: Performed By: #### L 9000.0800 ####[facility] [address] [place], [address] Blood Gas Type ART Normal [facility] Comment on above: Performed By: #### L 9000.0800 ####[facility] [address] [place], [address] CO2 [Moles/Vol] 25 mmol/L Normal [facility] Comment on above: Performed By: #### L 9000.0800 ####[facility] [address] [place], [address] Comment Home unit: 17/5 21% Normal [facility] Comment on above: Performed By: #### L 9000.0800 ####[facility] [address] [place], [address] FI02 21.0 Normal [facility] Comment on above: Performed By: #### L 8999.0800 ####[facility] [address] [place], [address] HCO3 (Bld) [Moles/Vol] 24.1 mmol/L Normal 22-26 [facility] Comment on above: Performed By: #### L 8999.0800 ####[facility] [address] [place], [address] Mode Not entered Normal [facility] Comment on above: Performed By: #### L 8999.0800 ####[facility] [address] [place], [address] O2 Delivery Dev BiPAP Normal [facility] Comment on above: Performed By: #### L 8999.0800 ####[facility] [address] [place], [address] pCO2 43.5 mmHg Normal 35-45 [facility] Comment on above: Performed By: #### L 8999.0800 ####[facility] [address] [place], [address] pH (Bld) 7.35 [pH] Normal 7.35-7.45 [facility] Comment on above: Performed By: #### L 0.0800 ####[facility] [address] [place], [address] PO2 71 mmHG Low 75-100 [facility] Comment on above: Performed By: #### L 8999.0800 ####[facility] [address] [place], [address] SITE R Brach Normal [facility] Comment on above: Performed By: #### L 0.0800 ####[facility] [address] [place], [address] SO2 93 Low 95-99 [facility] Comment on above: Performed By: #### L 9000.0800 ####[facility] [address] [place], [address] Blood base excess determinat ionOrdered By: Jose David Georges on 12-09-2024 Base excess Calc (BldV) [Moles/Vol] -2 mmol/L -2-2 [facility] Blood bicarbonate measuremen tOrdered By: Jose David Georges on 12-09-2024 HCO3 (Bld) [Moles/Vol] 24.1 mmol/L - [facility] CBC W/Diff, Automatedon 11-26 Absolute Neut Normal 2.0-7.7 [facility] Comment on above: Result Comment: Canc elled via OM: Order cancelled - Patient discharged Performed By: #### L 100.0100, L500.2500 ####[facility] [address] [place], [address] HCT Normal 40-54 [facility] Comment on above: Result Comment: Canc elled via OM: Order cancelled - Patient discharged Performed By: #### L 100.0100, L500.2500 ####[facility] [address] [place], [address] HGB Normal 13.0-16.5 [facility] Comment on above: Result Comment: Canc elled via OM: Order cancelled - Patient discharged Performed By: #### L 100.0100, L500.2500 ####[facility] [address] [place], [address] MCH Normal 27.0-32.0 [facility] Comment on above: Result Comment: Canc elled via OM: Order cancelled - Patient discharged Performed By: #### L 100.0100, L500.2500 ####[facility] [address] [place], [address] MCHC Normal 32-36 [facility] Comment on above: Result Comment: Canc elled via OM: Order cancelled - Patient discharged Performed By: #### L 100.0100, L500.2500 ####[facility] [address] [place], [address] MCV Normal 80-94 [facility] Comment on above: Result Comment: Canc elled via OM: Order cancelled - Patient discharged Performed By: #### L 100.0100, L500.2500 ####[facility] [address] [place], [address] NEUT% Normal 47-70 [facility] Comment on above: Result Comment: Canc elled via OM: Order cancelled - Patient discharged Performed By: #### L 100.0100, L500.2500 ####[facility] [address] [place], [address] PLT Normal 150-450 [facility] Comment on above: Result Comment: Canc elled via OM: Order cancelled - Patient discharged Performed By: #### L 100.0100, L500.2500 ####[facility] [address] [place], [address] RBC Normal 4.6-6.2 [facility] Comment on above: Result Comment: Canc elled via OM: Order cancelled - Patient discharged Performed By: #### L 100.0100, L500.2500 ####[facility] [address] [place], [address] RDW CV Normal 11.6-14.6 [facility] Comment on above: Result Comment: Canc elled via OM: Order cancelled - Patient discharged Performed By: #### L 100.0100, L500.2500 ####[facility] [address] [place], [address] RDW SD Normal 35.1-43.9 [facility] Comment on above: Result Comment: Canc elled via OM: Order cancelled - Patient discharged Performed By: #### L 100.0100, L500.2500 ####[facility] [address] [place], [address] WBC Normal 4.4-11.0 [facility] Comment on above: Result Comment: Canc elled via OM: Order cancelled - Patient discharged Performed By: #### L 100.0100, L500.2500 ####[facility] [address] [place], [address] Absolute Lymph 2.05 X10 3/uL Normal 0.83-4.51 [facility] Comment on above: Performed By: #### L 100.0100, L501.5200, L501.9520, L500.4050, L501.2300 ####[facility] [address] [place], [address] Absolute Neut 9.3 X10 3/uL High 2.0-7.7 [facility] Comment on above: Performed By: #### L 100.0100, L501.5200, L501.9520, L500.4050, L501.2300 ####[facility] [address] [place], [address] Basophils/100 WBC (Bld) 0.5 % Normal 0-1 [facility] Comment on above: Performed By: #### L 100.0100, L501.5200, L501.9520, L500.4050, L501.2300 ####[facility] [address] [place], [address] Eosinophils/100 WBC (Bld) 0.2 % Normal 0-5 [facility] Comment on above: Performed By: #### L 100.0100, L501.5200, L501.9520, L500.4050, L501.2300 ####[facility] [address] [place], [address] Erythrocyte distribution width (RBC) [Ratio] 15.4 % High 11.6-14.6 [facility] Comment on above: Performed By: #### L 100.0100, L501.5200, L501.9520, L500.4050, L501.2300 ####[facility] [address] [place], [address] Hematocrit (Bld) [Volume fraction] 49.6 % Normal 40-54 [facility] Comment on above: Performed By: #### L 100.0100, L501.5200, L501.9520, L500.4050, L501.2300 ####[facility] [address] [place], [address] Hemoglobin (Bld) [Mass/Vol] 16.7 g/dL High 13.0-16.5 [facility] Comment on above: Performed By: #### L 100.0100, L501.5200, L501.9520, L500.4050, L501.2300 ####[facility] [address] [place], [address] IG% 0.500 Normal 0.0-0.9 [facility] Comment on above: Result Comment: IG% - Immature Granulocytes (promyelocytes, myelocytes andmetamyelocytes) > 1% indicates that a LEFT SHIFT is Present. Performed By: #### L 100.0100, L501.5200, L501.9520, L500.4050, L501.2300 ####[facility] [address] [place], [address] Lymphocytes/100 WBC (Bld) 16.7 % Low 19-41 [facility] Comment on above: Performed By: #### L 100.0100, L501.5200, L501.9520, L500.4050, L501.2300 ####[facility] [address] [place], [address] MCH (RBC) [Entitic mass] 29.6 pg Normal 27.0-32.0 [facility] Comment on above: Performed By: #### L 100.0100, L501.5200, L501.9520, L500.4050, L501.2300 ####[facility] [address] [place], [address] MCHC (RBC) [Mass/Vol] 33.7 g/dL Normal 32-36 [facility] Comment on above: Performed By: #### L 100.0100, L501.5200, L501.9520, L500.4050, L501.2300 ####[facility] [address] [place], [address] MCV (RBC) [Entitic vol] 87.9 fL Normal 80-94 [facility] Comment on above: Performed By: #### L 100.0100, L501.5200, L501.9520, L500.4050, L501.2300 ####[facility] [address] [place], [address] Monocytes/100 WBC (Bld) 6.4 % Normal 0-10 [facility] Comment on above: Performed By: #### L 100.0100, L501.5200, L501.9520, L500.4050, L501.2300 ####[facility] [address] [place], [address] Neutrophils/100 WBC (Bld) 75.7 % High 47-70 [facility] Comment on above: Performed By: #### L 100.0100, L501.5200, L501.9520, L500.4050, L501.2300 ####[facility] [address] [place], [address] Nucleated RBC (Bld) [#/Vol] 0 10*3/uL Normal 0-5 [facility] Comment on above: Performed By: #### L 100.0100, L501.5200, L501.9520, L500.4050, L501.2300 ####[facility] [address] [place], [address] Platelet mean volume (Bld) [Entitic vol] 9.1 fL Normal 6.2-12.0 [facility] Comment on above: Performed By: #### L 100.0100, L501.5200, L501.9520, L500.4050, L501.2300 ####[facility] [address] [place], [address] Platelets (Bld) [#/Vol] 214 10*3/uL Normal 150-450 [facility] Comment on above: Performed By: #### L 100.0100, L501.5200, L501.9520, L500.4050, L501.2300 ####[facility] [address] [place], [address] RBC (Bld) [#/Vol] 5.64 10*6/uL Normal 4.6-6.2 [facility] Comment on above: Performed By: #### L 100.0100, L501.5200, L501.9520, L500.4050, L501.2300 ####[facility] [address] [place], [address] RDW SD 49.1 fl High 35.1-43.9 [facility] Comment on above: Performed By: #### L 100.0100, L501.5200, L501.9520, L500.4050, L501.2300 ####[facility] [address] [place], [address] WBC (Bld) [#/Vol] 12.3 10*3/uL High 4.4-11.0 [facility] Comment on above: Performed By: #### L 100.0100, L501.5200, L501.9520, L500.4050, L501.2300 ####[facility] [address] [place], [address] COVID 19 AG RAPID (MARGI Burnett)on 12-09-2024 SARS-CoV-2 (COVID-19) RNA TIIT+probe Ql (Unsp spec) Normal [facility] Comment on above: Performed By: #### M 100.505 ####[facility] [address] [place], [address] COVID-19 virus antigen assay Ordered By: Odilia Burgos on 12-09-2024 SARS-CoV-2 (COVID-19) Ag IA.rapid Ql (Resp) [facility] Carbon dioxide, total [Moles /volume] in Central venous bloodOrdered By: Odilia Burgos on 12-09-2024 CO2 [Moles/Vol] 18.1 mmol/L Low 21.0-32.0 [facility] Chloride assayOrdered By: Rachel Burgos on 12-09-2024 Chloride [Moles/Vol] 105 mmol/L 98-108 [facility] Comprehensive Metabolic Prof ilon 12-09-2024 Albumin [Mass/Vol] 4.1 g/dL Normal 3.4-4.8 [facility] Comment on above: Performed By: #### L 100.0100, L501.5200, L501.9520, L500.4050, L501.2300 ####[facility] [address] [place], [address] Albumin/Globulin [Mass ratio] 1.3 {ratio} Normal 0.9-2.4 [facility] Comment on above: Performed By: #### L 100.0100, L501.5200, L501.9520, L500.4050, L501.2300 ####[facility] [address] [place], [address] ALK PHOS 77 U/L Normal 40-129 [facility] Comment on above: Performed By: #### L 100.0100, L501.5200, L501.9520, L500.4050, L501.2300 ####[facility] [address] [place], [address] ALT [Catalytic activity/Vol] 60 U/L High <=46 [facility] Comment on above: Performed By: #### L 100.0100, L501.5200, L501.9520, L500.4050, L501.2300 ####[facility] [address] [place], [address] AST [Catalytic activity/Vol] 37 U/L Normal <=37 [facility] Comment on above: Performed By: #### L 100.0100, L501.5200, L501.9520, L500.4050, L501.2300 ####[facility] [address] [place], [address] Bilirubin [Mass/Vol] 0.71 mg/dL Normal 0.00-1.30 [facility] Comment on above: Performed By: #### L 100.0100, L501.5200, L501.9520, L500.4050, L501.2300 ####[facility] [address] [place], [address] BUN/CRE 10.0 RATIO Normal 10-20 [facility] Comment on above: Performed By: #### L 100.0100, L501.5200, L501.9520, L500.4050, L501.2300 ####[facility] [address] [place], [address] Calcium [Mass/Vol] 9.2 mg/dL Normal 7.6-11.0 [facility] Comment on above: Performed By: #### L 100.0100, L501.5200, L501.9520, L500.4050, L501.2300 ####[facility] [address] [place], [address] Chloride [Moles/Vol] 105 mmol/L Normal 98-108 [facility] Comment on above: Performed By: #### L 100.0100, L501.5200, L501.9520, L500.4050, L501.2300 ####[facility] [address] [place], [address] CO2 [Moles/Vol] 18.1 mmol/L Low 21.0-32.0 [facility] Comment on above: Performed By: #### L 100.0100, L501.5200, L501.9520, L500.4050, L501.2300 ####[facility] [address] [place], [address] Creatinine [Mass/Vol] 1.77 mg/dL High 0.70-1.20 [facility] Comment on above: Performed By: #### L 100.0100, L501.5200, L501.9520, L500.4050, L501.2300 ####[facility] [address] [place], [address] ECRCL 67.43 ml/min Normal 50-250 [facility] Comment on above: Performed By: #### L 100.0100, L501.5200, L501.9520, L500.4050, L501.2300 ####[facility] [address] [place], [address] GAP 13 Normal 5-15 [facility] Comment on above: Performed By: #### L 100.0100, L501.5200, L501.9520, L500.4050, L501.2300 ####[facility] [address] [place], [address] GFR/1.73 sq M.predicted among non-blacks MDRD (S/P/Bld) [Vol rate/Area] 42 mL/min/{1.73_m2} Low >60 [facility] Comment on above: Result Comment: mL/m in/1.73m2 CKD-EPI Creatinine Equation (2020) Performed By: #### L 100.0100, L501.5200, L501.9520, L500.4050, L501.2300 ####[facility] [address] [place], [address] Globulin (S) [Mass/Vol] 3.1 g/dL Normal 2.2-4.2 [facility] Comment on above: Performed By: #### L 100.0100, L501.5200, L501.9520, L500.4050, L501.2300 ####[facility] [address] [place], [address] Glucose [Mass/Vol] 157 mg/dL High 70-99 [facility] Comment on above: Performed By: #### L 100.0100, L501.5200, L501.9520, L500.4050, L501.2300 ####[facility] [address] [place], [address] Potassium [Moles/Vol] 4.4 mmol/L Normal 3.3-5.1 [facility] Comment on above: Performed By: #### L 100.0100, L501.5200, L501.9520, L500.4050, L501.2300 ####[facility] [address] [place], [address] Sodium [Moles/Vol] 136 mmol/L Normal 133-145 [facility] Comment on above: Performed By: #### L 100.0100, L501.5200, L501.9520, L500.4050, L501.2300 ####[facility] [address] [place], [address] T PROT 7.3 g/dL Normal 5.9-8.4 [facility] Comment on above: Performed By: #### L 100.0100, L501.5200, L501.9520, L500.4050, L501.2300 ####[facility] [address] [place], [address] Urea nitrogen [Mass/Vol] 18 mg/dL Normal 4-19 [facility] Comment on above: Performed By: #### L 100.0100, L501.5200, L501.9520, L500.4050, L501.2300 ####[facility] [address] [place], [address] Consultation - Cardiologyon 12-09-2024 Consultation - Cardiology Normal [facility] Echo Complete W/ Contraston 12-09-2024 Echo Complete W/ Contrast Normal [facility] Echocardiogram study reportO rdered By: Jesse Urban on 12-09-2024 Study report [facility] [address] [place] [address] Echo Complete W/ Contrast 12/09/24 0939 MR#: [id number] Acct: [id number] Name: MARCEL TURCIOS Rep #:[id number] : 1960 64 From: Jesse Urban MD [...] Dr. Mis Edmondson MD ~ Date Dictated: 12/09/2439 Date Transcribed: 12/09/241224 [employer] Manager: Signed [facility] Eosinophil percentageOrdered By: Odilia Burgos on 12-09-2024 Eosinophils/100 WBC (Bld) 0.2 % 0-5 [facility] Erythrocyte distribution wid th ratioOrdered By: Odilia Burgos on 12-09-2024 Erythrocyte distribution width (RBC) [Ratio] 15.4 % High 11.6-14.6 [facility] Erythrocyte distribution wid th standard deviationOrdered By: Odilia Burgos on 12-09-2024 Erythrocyte distribution width (RBC) [Ratio] 49.1 fl High 35.1-43.9 [facility] Glomerular filtration rate ( GFR) estimation/1.73 sq m using serum, plasma, or whole bOrdered By: Odilia Burgos on 12-09-2024 GFR/1.73 sq M.predicted among non-blacks MDRD (S/P/Bld) [Vol rate/Area] 42 mL/min/{1.73_m2} Low >60 [facility] Comment on above: mL/min/1.73m2 CKD-EP I Creatinine Equation (2020) Gram Stainon 12-09-2024 GS Normal [facility] Comment on above: Performed By: #### M 100.2000, M100.2400 ####[facility] [address] [place], [address] Gram stainOrdered By: Marciano Burgos on 12-09-2024 Microscopic observation Gram stain Nom (Unsp spec) [facility] H AND P Exam - Hospitaliston 12-09-2024 H&P Exam - Hospitalist Normal [facility] Hematocrit Auto (Bld) [Volum e fraction]Ordered By: Odilia Burgos on 12-09-2024 Hematocrit (Bld) [Volume fraction] 49.6 % 40-54 [facility] Hemoglobin measurementOrdere d By: Odilia Burgos on 12-09-2024 Hemoglobin (Bld) [Mass/Vol] 16.7 g/dL High 13.0-16.5 [facility] Hyaline casts LM.LPF (Urine sed) [#/Area]Ordered By: Odilia Burgos on 12-09-2024 Hyaline casts (Urine sed) [#/Area] 0 /[LPF] 0-5 [facility] Immature granulocytes/100 WB C Auto (Bld)Ordered By: Odilia Burgos on 12-09-2024 Immature granulocytes/100 WBC (Bld) 0.500 % 0.0-0.9 [facility] Comment on above: IG% - Immature Granu locytes (promyelocytes, myelocytes and metamyelocytes) > 1% indicates that a LEFT SHIFT is Present. Ketones Test strip Ql (U)Ord ered By: Odilia Burgos on 12-09-2024 Ketones Ql (U) 5 mg/dl High Negative [facility] L499.0042on 12-09-2024 Trop T High Sen 34 ng/L High <=22 [facility] Comment on above: Performed By: #### L 499.0042 ####[facility] [address] [place], [place], [address] L509.7001on 12-09-2024 Procalcitonin 0.15 ng/mL High <=0.10 [facility] Comment on above: Result Comment: Inte rpretation:<0.10-0.25 ng/mL: Antibiotic therapy discouraged. Bacterialinfection unlikely.0.25-0.50 ng/mL: Antibiotic therapy encouraged. Bacterialinfection possible.>0.50 ng/mL: Antibiotic therapy strongly encouraged.Suggestive of presence of bacterial infection.PCT should always be interpreted in the clinical context ofthe patient. Therefore, clinicians should use the PCTresults in conjunction with other laboratory findings andclinical signs of the patient. Performed By: #### L 509.7001, L503.6005 ####[facility] [address] [place], [place], [address] Laboratory - Chemistry and C hemistry - challengeOrdered By: Odilia Burgos on 12-09-2024 AST [Catalytic activity/Vol] 37 U/L <38 [facility] Lactic Acidon 12-09-2024 Lactate [Moles/Vol] 1.2 mmol/L Normal 0.0-2.0 [facility] Comment on above: Order Comment: Y Performed By: #### L 509.7001, L503.6005 ####[facility] [address] [place], [place], [address] MCV (mean corpuscular volume ) determinationOrdered By: Odilia Burgos on 12-09-2024 MCV (RBC) [Entitic vol] 87.9 fL 80-94 [facility] Magnesiumon 12-09-2024 Magnesium [Mass/Vol] 2.1 mg/dL Normal 1.5-2.2 [facility] Comment on above: Performed By: #### L 100.0100, L501.5200, L501.4533, L500.5830, L501.1500 ####[facility] [address] [place], [address] Magnesium measurement (mass/ volume)Ordered By: Odilia Burgos on 12-09-2024 Magnesium (Unsp spec) [Mass/Vol] 2.1 mg/dL 1.5-2.2 [facility] Mean corpuscular hemoglobin (MCH) determinationOrdered By: Odilia Burgos on 12-09-2024 MCH (RBC) [Entitic mass] 29.6 pg 27.0-32.0 [facility] Mean corpuscular hemoglobin concentration (MCHC) determinationOrdered By: Odilia Burgos on 12-09-2024 MCHC (RBC) [Mass/Vol] 33.7 g/dL 32-36 [facility] Mean platelet volume determi nationOrdered By: Odilia Burgos on 12-09-2024 Platelet mean volume (Bld) [Entitic vol] 9.1 fL 6.2-12.0 [facility] Measurement, pHOrdered By: Rosario Georges on 12-09-2024 pH (Unsp spec) 7.35 [pH] 7.35-7.45 [facility] Microbial respiratory cultur eOrdered By: Odilia Burgos on 12-09-2024 Microorganism identified Cx Nom (Unsp spec) [facility] Microscopic analysis of urin e for red blood cells (RBC)Ordered By: Odilia Burgos on 12-09-2024 Microscopic analysis of urine for red blood cells (RBC) 0-5 SEEN /hpf 0-5 [facility] Monocyte percentageOrdered B y: Odilia Burgos on 12-09-2024 Monocytes/100 WBC (Bld) 6.4 % 0-10 [facility] Mucus LM Ql (Urine sed)Order ed By: Odilia Burgos on 12-09-2024 Mucus Ql (Urine sed) 0 SEEN /hpf [facility] Neutrophil percentageOrdered By: Odilia Burgos on 12-09-2024 Neutrophils/100 WBC (Bld) 75.7 % High 47-70 [facility] Nitrite Test strip Ql (U)Ord ered By: Odilia Burgos on 12-09-2024 Nitrite Ql (U) Negative Negative [facility] No Panel InformationOrdered By: Jose David Georges on 12-09-2024 Blood Gas Clinical Comments Home unit: 11/11 21% [facility] Blood Gas Sample Site R Brach [facility] Blood Gas Specimen Type ART [facility] Blood Gas Vent Mode Not entered [facility] Oxygen Delivery Device BiPAP [facility] Nucleated red blood cell per centageOrdered By: Odilia Burgos on 12-09-2024 Nucleated RBC/100 WBC (Bld) [Ratio] 0 % 0-5 [facility] Phosphoruson 12-09-2024 Phosphate [Mass/Vol] 2.6 mg/dL Low 2.7-4.5 [facility] Comment on above: Performed By: #### L 100.0100, L501.5200, L501.9520, L500.4050, L501.2300 ####[facility] [address] [place], [address] Platelet countOrdered By: Rachel Burgos on 12-09-2024 Platelets (Bld) [#/Vol] 214 10*3/uL 150-450 [facility] Potassium measurement (mass/ volume)Ordered By: Odilia Burgos on 12-09-2024 Potassium (Unsp spec) [Mass/Vol] 4.4 mmol/L 3.3-5.1 [facility] Protein Test strip Ql (U)Ord ered By: Odilia Burgos on 12-09-2024 Protein Ql (U) 100 mg/dl High Negative [facility] RBC Auto (Bld) [#/Vol]Ordere d By: Odilia Burgos on 12-09-2024 RBC (Bld) [#/Vol] 5.64 10*6/uL 4.6-6.2 [facility] RESPIRATORY PANEL MOLECULARo n 12-09-2024 RP PANEL Normal [facility] Comment on above: Performed By: #### M 100.638 ####[facility] [address] [place], [place], [address] Respiratory Cultureon 2024 RESPC Not performed Normal [facility] Comment on above: Performed By: #### M 100.2000, M100.2400 ####[facility] [address] [place], [address] Respiratory pathogens detect ion panel by molecular detection methodOrdered By: Odilia Burgos on 12-09-2024 Respiratory pathogens DNA and RNA panel TITI+probe (Resp) [facility] Serum creatinine measurement (mass/volume)Ordered By: Odilia Burgos on 12-09-2024 Creatinine [Mass/Vol] 1.77 mg/dL High 0.70-1.20 [facility] Serum globulin measurementOr dered By: Odilia Burgos on 12-09-2024 Globulin (S) [Mass/Vol] 3.1 g/dL 2.2-4.2 [facility] Serum glucose measurement (m ass/volume)Ordered By: Odilia Burgos on 12-09-2024 Glucose [Mass/Vol] 157 mg/dL High 70-99 [facility] Serum or plasma alanine crawford otransferase (ALT) measurementOrdered By: Odilia Burgos on 12-09-2024 ALT [Catalytic activity/Vol] 60 U/L High <47 [facility] Serum or plasma albumin jarrod urement (mass/volume)Ordered By: Odilia Burgos on 12-09-2024 Albumin [Mass/Vol] 4.1 g/dL 3.4-4.8 [facility] Serum or plasma albumin/glob ulin mass ratioOrdered By: Odilia Burgos on 12-09-2024 Albumin/Globulin [Mass ratio] 1.3 {ratio} 0.9-2.4 [facility] Serum or plasma alkaline christina sphatase measurementOrdered By: Odilia Burgos on 12-09-2024 ALP [Catalytic activity/Vol] 77 U/L 40-129 [facility] Serum or plasma calcium jarrod urement (mass/volume)Ordered By: Odilia Burgos on 12-09-2024 Calcium [Mass/Vol] 9.2 mg/dL 7.6-11.0 [facility] Serum or plasma urea nitroge n measurement (mass/volume)Ordered By: Odilia Burgos on 12-09-2024 Urea nitrogen [Mass/Vol] 18 mg/dL 4-19 [facility] Sodium levelOrdered By: Brooke Burgos on 12-09-2024 Sodium [Moles/Vol] 136 mmol/L 133-145 [facility] Squamous epithelial cells de tection in urine sediment by light microscopyOrdered By: Odilia Burgos on 12-09-2024 Epithelial cells.squamous LM Ql (Urine sed) 0-5 SEEN /hpf 0-5 [facility] TSH DL <= 0.005 mIU/L QnOrde red By: Odilia Burgos on 12-09-2024 TSH Qn 3.020 uIU/mL 0.300-4.20 0 [facility] Thyroid Stim Hormone (TSH)on 12-09-2024 TSH 3.020 uIU/mL Normal 0.300-4.20 0 [facility] Comment on above: Performed By: #### L 100.0100, L501.5200, L501.9520, L500.4050, L501.2300 ####[facility] [address] [place], [address] Total carbon dioxide measure mentOrdered By: Jose David Georges on 12-09-2024 CO2 [Moles/Vol] 25 mmol/L [facility] Total proteinOrdered By: Denise Burgos on 12-09-2024 Protein [Mass/Vol] 7.3 g/dL 5.9-8.4 [facility] Urinalysis, Completeon 12-09 RBC 0-5 SEEN Normal 0-5 [facility] Comment on above: Order Comment: CLEAN CATCH Performed By: #### M 100.2200, L400.0001 ####[facility] [address] [place], [address] AMORPHOUS 1+ Normal [facility] Comment on above: Order Comment: CLEAN CATCH Performed By: #### M 100.2200, L400.0001 ####[facility] [address] [place], [address] CAST,FINE GRAN 5-10 SEEN Normal 0-5 [facility] Comment on above: Order Comment: CLEAN CATCH Performed By: #### M 100.2200, L400.0001 ####[facility] [address] [place], [address] CAST,HYALINE 0-5 SEEN Normal 0-5 [facility] Comment on above: Order Comment: CLEAN CATCH Performed By: #### M 100.2200, L400.0001 ####[facility] [address] [place], [address] EPI,SQUAMOUS 0-5 SEEN Normal 0-5 [facility] Comment on above: Order Comment: CLEAN CATCH Performed By: #### M 100.2200, L400.0001 ####[facility] [address] [place], [address] WBC 5-10 SEEN Normal 0-5 [facility] Comment on above: Order Comment: CLEAN CATCH Performed By: #### M 100.2200, L400.0001 ####[facility] [address] [place], [address] BACTERIA 0 SEEN Normal None Seen [facility] Comment on above: Order Comment: CLEAN CATCH Performed By: #### M 100.2200, L400.0001 ####[facility] [address] [place], [address] Mucus Ql (Urine sed) 0 SEEN Normal [facility] Comment on above: Order Comment: CLEAN CATCH Performed By: #### M 100.2200, L400.0001 ####[facility] [address] [place], [address] Urine clarityOrdered By: Denise Burgos on 12-09-2024 Clarity (U) Sl. Cloudy Clear [facility] Urine color determinationOrd ered By: Odilia Burgos on 12-09-2024 Color (U) Yellow Yellow [facility] Urine cultureOrdered By: Denise Burgos on 12-09-2024 Bacteria identified Cx Nom (U) Culture exhibits no growth. [facility] Urine glucose detectionOrder ed By: Odilia Burgos on 12-09-2024 Glucose Ql (U) 50 mg/dl High Normal [facility] Urine leukocyte esterase det ection by dipstickOrdered By: Odilia Burgos on 12-09-2024 Leukocyte esterase Test strip Ql (U) 25 /ul High Negative [facility] Urine pHOrdered By: Odilia Burgos on 12-09-2024 pH (U) 5.0 [pH] 5.0 - 8.0 [facility] Urine sediment bacteria coun t by microscopy (number/high power field)Ordered By: Odilia Burgos on 12-09-2024 Bacteria LM.HPF (Urine sed) [#/Area] 0 /[HPF] None Seen [facility] Urine sediment fine granular cast count by microscopy (number/low power field)Ordered By: Odilia Burgos on 12-09-2024 Fine Granular Casts LM.LPF (Urine sed) [#/Area] 5-10 SEEN /lpf 0-5 [facility] Urine specific gravity measu rementOrdered By: Odilia Burgos on 12-09-2024 Specific gravity (U) [Rel density] 1.025 1.002-1.03 0 [facility] Urine urobilinogen measureme ntOrdered By: Odilia Burgos on 12-09-2024 Urobilinogen Ql (U) 1 mg/dl High Normal [facility] White blood cell (WBC) count Ordered By: Odilia Burgos on 12-09-2024 WBC (Bld) [#/Vol] 12.3 10*3/uL High 4.4-11.0 [facility] White blood cell countOrdere d By: Odilia Burgos on 12-09-2024 White blood cell count 5-10 SEEN /hpf 0-5 [facility] Absolute lymphocyte countOrd ered By: Martha Mead on 12-08-2024 Lymphocytes Auto (Unsp spec) [#/Vol] 3.55 10*3/uL 0.83-4.51 [facility] Lymphocytes Auto (Unsp spec) [#/Vol] 1.97 10*3/uL 0.83-4.51 [facility] Absolute neutrophil countOrd ered By: Martha Mead on 12-08-2024 Neutrophils (Bld) [#/Vol] 14.6 10*3/uL High 2.0-7.7 [facility] Neutrophils (Bld) [#/Vol] 6.3 10*3/uL 2.0-7.7 [facility] Anion gap in Serum or Plasma Ordered By: Martha Mead on 12-08-2024 Anion gap [Moles/Vol] 20 mmol/L High - [facility] Anion gap [Moles/Vol] 14 mmol/L - [facility] Automated lymphocyte count a s percentage of total leukocytesOrdered By: Martha Mead on 12-08-2024 Lymphocytes/100 WBC Auto (Unsp spec) 17.5 % Low [facility] Lymphocytes/100 WBC Auto (Unsp spec) 21.7 % [facility] BUN/creatinine ratioOrdered By: Martha Mead on 12-08-2024 Urea nitrogen/Creatinine [Mass ratio] 8.4 mg/mg Low - [facility] Urea nitrogen/Creatinine [Mass ratio] 9.9 mg/mg Low - [facility] Basic Metabolic Profile (BMP )on 12-08-2024 BUN/CRE 8.4 RATIO Low [facility] Comment on above: Performed By: #### L 501.4021, L100.0100, L500.2500 ####[facility] [address] [place], [address] Calcium [Mass/Vol] 10.2 mg/dL Normal 7.6-11.0 [facility] Comment on above: Performed By: #### L 501.4021, L100.0100, L500.2500 ####[facility] [address] [place], [address] Chloride [Moles/Vol] 102 mmol/L Normal 98-108 [facility] Comment on above: Performed By: #### L 501.4021, L100.0100, L500.2500 ####[facility] [address] [place], [address] CO2 [Moles/Vol] 17.3 mmol/L Low 21.0-32.0 [facility] Comment on above: Performed By: #### L 501.4021, L100.0100, L500.2500 ####[facility] [address] [place], [address] Creatinine [Mass/Vol] 1.50 mg/dL High 0.70-1.20 [facility] Comment on above: Performed By: #### L 501.4021, L100.0100, L500.2500 ####[facility] [address] [place], [address] ECRCL 80.71 ml/min Normal 50-250 [facility] Comment on above: Performed By: #### L 501.4021, L100.0100, L500.2500 ####[facility] [address] [place], [address] GAP 20 High 5-15 [facility] Comment on above: Performed By: #### L 501.4021, L100.0100, L500.2500 ####[facility] [address] [place], [address] GFR/1.73 sq M.predicted among non-blacks MDRD (S/P/Bld) [Vol rate/Area] 51 mL/min/{1.73_m2} Low >60 [facility] Comment on above: Result Comment: mL/m in/1.73m2 CKD-EPI Creatinine Equation (2020) Performed By: #### L 501.4021, L100.0100, L500.2500 ####[facility] [address] [place], [address] Glucose [Mass/Vol] 157 mg/dL High 70-99 [facility] Comment on above: Performed By: #### L 501.4021, L100.0100, L500.2500 ####[facility] [address] [place], [address] Potassium [Moles/Vol] 4.1 mmol/L Normal 3.3-5.1 [facility] Comment on above: Performed By: #### L 501.4021, L100.0100, L500.2500 ####[facility] [address] [place], [address] Sodium [Moles/Vol] 139 mmol/L Normal 133-145 [facility] Comment on above: Performed By: #### L 501.4021, L100.0100, L500.2500 ####[facility] [address] [place], [address] Urea nitrogen [Mass/Vol] 13 mg/dL Normal 4-19 [facility] Comment on above: Performed By: #### L 501.4021, L100.0100, L500.2500 ####[facility] [address] [place], [address] BUN/CRE 9.9 RATIO Low 10-20 [facility] Comment on above: Performed By: #### L 501.5200, L100.0100, L500.2500, L501.9520, L503.7505, L501.4021 ####[facility] [address] [place], [address] Calcium [Mass/Vol] 9.4 mg/dL Normal 7.6-11.0 [facility] Comment on above: Performed By: #### L 501.5200, L100.0100, L500.2500, L501.9520, L503.7505, L501.4021 ####[facility] [address] [place], [address] Chloride [Moles/Vol] 103 mmol/L Normal 98-108 [facility] Comment on above: Performed By: #### L 501.5200, L100.0100, L500.2500, L501.9520, L503.7505, L501.4021 ####[facility] [address] [place], [address] CO2 [Moles/Vol] 19.0 mmol/L Low 21.0-32.0 [facility] Comment on above: Performed By: #### L 501.5200, L100.0100, L500.2500, L501.9520, L503.7505, L501.4021 ####[facility] [address] [place], [address] Creatinine [Mass/Vol] 1.01 mg/dL Normal 0.70-1.20 [facility] Comment on above: Performed By: #### L 501.5200, L100.0100, L500.2500, L501.9520, L503.7505, L501.4021 ####[facility] [address] [place], [address] ECRCL 120.32 ml/min Normal 50-250 [facility] Comment on above: Performed By: #### L 501.5200, L100.0100, L500.2500, L501.9520, L503.7505, L501.4021 ####[facility] [address] [place], [address] GAP 14 Normal 5-15 [facility] Comment on above: Performed By: #### L 501.5200, L100.0100, L500.2500, L501.9520, L503.7505, L501.4021 ####[facility] [address] [place], [address] GFR/1.73 sq M.predicted among non-blacks MDRD (S/P/Bld) [Vol rate/Area] 83 mL/min/{1.73_m2} Normal >60 [facility] Comment on above: Result Comment: mL/m in/1.73m2 CKD-EPI Creatinine Equation (2020) Performed By: #### L 501.5200, L100.0100, L500.2500, L501.9520, L503.7505, L501.4021 ####[facility] [address] [place], [address] Glucose [Mass/Vol] 135 mg/dL High 70-99 [facility] Comment on above: Performed By: #### L 501.5200, L100.0100, L500.2500, L501.9520, L503.7505, L501.4021 ####[facility] [address] [place], [address] Potassium [Moles/Vol] 4.2 mmol/L Normal 3.3-5.1 [facility] Comment on above: Result Comment: Hemo lysis present, Results??could be affected.?? Performed By: #### L 501.5200, L100.0100, L500.2500, L501.9520, L503.7505, L501.4021 ####[facility] [address] [place], [address] Sodium [Moles/Vol] 136 mmol/L Normal 133-145 [facility] Comment on above: Performed By: #### L 501.5200, L100.0100, L500.2500, L501.9520, L503.7505, L501.4021 ####[facility] [address] [place], [address] Urea nitrogen [Mass/Vol] 10 mg/dL Normal 4-19 [facility] Comment on above: Performed By: #### L 501.5200, L100.0100, L500.2500, L501.9520, L503.7505, L501.4021 ####[facility] [address] [place], [address] Basophil percentageOrdered B y: Martha Mead on 12-08-2024 Basophils/100 WBC (Bld) 0.8 % 0-1 [facility] Basophils/100 WBC (Bld) 0.9 % 0-1 [facility] Blood manual differential co mment interpretation (narrative result)Ordered By: Martha Mead on 12-08-2024 Manual differential comment Cesar (Bld) [Interp] SCANNED [facility] CBC W/Diff, Automatedon 11-26 SMEAR COMMENT SCANNED Normal [facility] Comment on above: Performed By: #### L 501.4021, L100.0100, L500.2500 ####[facility] [address] [place], [address] Absolute Lymph 1.97 X10 3/uL Normal 0.83-4.51 [facility] Comment on above: Performed By: #### L 501.5200, L100.0100, L500.2500, L501.9520, L503.7505, L501.4021 ####[facility] [address] [place], [address] Absolute Neut 6.3 X10 3/uL Normal 2.0-7.7 [facility] Comment on above: Performed By: #### L 501.5200, L100.0100, L500.2500, L501.9520, L503.7505, L501.4021 ####[facility] [address] [place], [address] Basophils/100 WBC (Bld) 0.9 % Normal 0-1 [facility] Comment on above: Performed By: #### L 501.5200, L100.0100, L500.2500, L501.9520, L503.7505, L501.4021 ####[facility] [address] [place], [address] Eosinophils/100 WBC (Bld) 1.7 % Normal 0-5 [facility] Comment on above: Performed By: #### L 501.5200, L100.0100, L500.2500, L501.9520, L503.7505, L501.4021 ####[facility] [address] [place], [address] Erythrocyte distribution width (RBC) [Ratio] 15.1 % High 11.6-14.6 [facility] Comment on above: Performed By: #### L 501.5200, L100.0100, L500.2500, L501.9520, L503.7505, L501.4021 ####[facility] [address] [place], [address] Hematocrit (Bld) [Volume fraction] 50.3 % Normal 40-54 [facility] Comment on above: Performed By: #### L 501.5200, L100.0100, L500.2500, L501.9520, L503.7505, L501.4021 ####[facility] [address] [place], [address] Hemoglobin (Bld) [Mass/Vol] 17.2 g/dL High 13.0-16.5 [facility] Comment on above: Performed By: #### L 501.5200, L100.0100, L500.2500, L501.9520, L503.7505, L501.4021 ####[facility] [address] [place], [address] IG% 0.600 Normal 0.0-0.9 [facility] Comment on above: Result Comment: IG% - Immature Granulocytes (promyelocytes, myelocytes andmetamyelocytes) > 1% indicates that a LEFT SHIFT is Present. Performed By: #### L 501.5200, L100.0100, L500.2500, L501.9520, L503.7505, L501.4021 ####[facility] [address] [place], [address] Lymphocytes/100 WBC (Bld) 21.7 % Normal 19-41 [facility] Comment on above: Performed By: #### L 501.5200, L100.0100, L500.2500, L501.9520, L503.7505, L501.4021 ####[facility] [address] [place], [address] MCH (RBC) [Entitic mass] 29.9 pg Normal 27.0-32.0 [facility] Comment on above: Performed By: #### L 501.5200, L100.0100, L500.2500, L501.9520, L503.7505, L501.4021 ####[facility] [address] [place], [address] MCHC (RBC) [Mass/Vol] 34.2 g/dL Normal 32-36 [facility] Comment on above: Performed By: #### L 501.5200, L100.0100, L500.2500, L501.9520, L503.7505, L501.4021 ####[facility] [address] [place], [address] MCV (RBC) [Entitic vol] 87.5 fL Normal 80-94 [facility] Comment on above: Performed By: #### L 501.5200, L100.0100, L500.2500, L501.9520, L503.7505, L501.4021 ####[facility] [address] [place], [address] Monocytes/100 WBC (Bld) 6.1 % Normal 0-10 [facility] Comment on above: Performed By: #### L 501.5200, L100.0100, L500.2500, L501.9520, L503.7505, L501.4021 ####[facility] [address] [place], [address] Neutrophils/100 WBC (Bld) 69.0 % Normal 47-70 [facility] Comment on above: Performed By: #### L 501.5200, L100.0100, L500.2500, L501.9520, L503.7505, L501.4021 ####[facility] [address] [place], [address] Nucleated RBC (Bld) [#/Vol] 0 10*3/uL Normal 0-5 [facility] Comment on above: Performed By: #### L 501.5200, L100.0100, L500.2500, L501.9520, L503.7505, L501.4021 ####[facility] [address] [place], [address] Platelet mean volume (Bld) [Entitic vol] 9.1 fL Normal 6.2-12.0 [facility] Comment on above: Performed By: #### L 501.5200, L100.0100, L500.2500, L501.9520, L503.7505, L501.4021 ####[facility] [address] [place], [address] Platelets (Bld) [#/Vol] 191 10*3/uL Normal 150-450 [facility] Comment on above: Performed By: #### L 501.5200, L100.0100, L500.2500, L501.9520, L503.7505, L501.4021 ####[facility] [address] [place], [address] RBC (Bld) [#/Vol] 5.75 10*6/uL Normal 4.6-6.2 [facility] Comment on above: Performed By: #### L 501.5200, L100.0100, L500.2500, L501.9520, L503.7505, L501.4021 ####[facility] [address] [place], [address] RDW SD 48.0 fl High 35.1-43.9 [facility] Comment on above: Performed By: #### L 501.5200, L100.0100, L500.2500, L501.9520, L503.7505, L501.4021 ####[facility] [address] [place], [address] WBC (Bld) [#/Vol] 9.1 10*3/uL Normal 4.4-11.0 [facility] Comment on above: Performed By: #### L 501.5200, L100.0100, L500.2500, L501.9520, L503.7505, L501.4021 ####[facility] [address] [place], [address] CO2 (BldV) [Moles/Vol]Ordere d By: Shelbie Guaman on 12-08-2024 CO2 [Moles/Vol] 25 mmol/L 23-33 [facility] Carbon dioxide, total [Moles /volume] in Central venous bloodOrdered By: Martha Mead on 12-08-2024 CO2 [Moles/Vol] 17.3 mmol/L Low 21.0-32.0 [facility] CO2 [Moles/Vol] 19.0 mmol/L Low 21.0-32.0 [facility] Chest PA and Lateralon 12-08 Chest PA and Lateral Normal [facility] Chest PA and Lateral Normal [facility] Chest without Contraston Chest without Contrast Normal [facility] Chloride assayOrdered By: Ros Mead on 12-08-2024 Chloride [Moles/Vol] 102 mmol/L 98-108 [facility] Chloride [Moles/Vol] 103 mmol/L 98-108 [facility] D-Dimer Quantitative (DVT/PE )on 12-08-2024 D-DIMER QUANT 0.36 FEU/ug/m Normal 0.27-0.49 [facility] Comment on above: Result Comment: NORM AL D-Dimer level (<0.50) indicates no DVT or PE. Performed By: #### L 300.8000 ####[facility] [address] [place], [address] Emergency Department Summary on 12-08-2024 Emergency Department Summary Normal [facility] Eosinophil percentageOrdered By: Martha Mead on 12-08-2024 Eosinophils/100 WBC (Bld) 0.4 % 0-5 [facility] Eosinophils/100 WBC (Bld) 1.7 % 0-5 [facility] Erythrocyte distribution wid th ratioOrdered By: Martha Mead on 12-08-2024 Erythrocyte distribution width (RBC) [Ratio] 15.8 % High 11.6-14.6 [facility] Erythrocyte distribution width (RBC) [Ratio] 15.1 % High 11.6-14.6 [facility] Erythrocyte distribution wid th standard deviationOrdered By: Martha Mead on 12-08-2024 Erythrocyte distribution width (RBC) [Ratio] 48.6 fl High 35.1-43.9 [facility] Erythrocyte distribution width (RBC) [Ratio] 48.0 fl High 35.1-43.9 [facility] Glomerular filtration rate ( GFR) estimation/1.73 sq m using serum, plasma, or whole bOrdered By: Martha Mead on 12-08-2024 GFR/1.73 sq M.predicted among non-blacks MDRD (S/P/Bld) [Vol rate/Area] 51 mL/min/{1.73_m2} Low >60 [facility] Comment on above: mL/min/1.73m2 CKD-EP I Creatinine Equation (2020) GFR/1.73 sq M.predicted among non-blacks MDRD (S/P/Bld) [Vol rate/Area] 83 mL/min/{1.73_m2} >60 [facility] Comment on above: mL/min/1.73m2 CKD-EP I Creatinine Equation (2020) H AND P Exam - [facility] 12-08-2024 H&P Exam - Hospitalist Normal [facility] Hematocrit Auto (Bld) [Volum e fraction]Ordered By: Martha Mead on 12-08-2024 Hematocrit (Bld) [Volume fraction] 53.8 % 40-54 [facility] Hematocrit (Bld) [Volume fraction] 50.3 % 40-54 [facility] Hemoglobin measurementOrdere d By: Martha Mead on 12-08-2024 Hemoglobin (Bld) [Mass/Vol] 18.4 g/dL High 13.0-16.5 [facility] Comment on above: CRITICAL VALUE HENDRIX D TO [id number] Ivan Jones.RESULTS READ BACK BY SAME. Hemoglobin (Bld) [Mass/Vol] 17.2 g/dL High 13.0-16.5 [facility] Immature granulocytes/100 WB C Auto (Bld)Ordered By: Martha Mead on 12-08-2024 Immature granulocytes/100 WBC (Bld) 0.600 % 0.0-0.9 [facility] Comment on above: IG% - Immature Granu locytes (promyelocytes, myelocytes and metamyelocytes) > 1% indicates that a LEFT SHIFT is Present. Immature granulocytes/100 WBC (Bld) 0.600 % 0.0-0.9 [facility] Comment on above: IG% - Immature Granu locytes (promyelocytes, myelocytes and metamyelocytes) > 1% indicates that a LEFT SHIFT is Present. L499.0042on 12-08-2024 Trop T High Sen 18 ng/L Normal <=22 [facility] Comment on above: Order Comment: CHECK ED.. STILL IN ER AT 1627 Performed By: #### L 499.0042 ####[facility] [address] [place], [address] L501.4021on 12-08-2024 Trop T High Sen 36 ng/L High <=22 [facility] Comment on above: Performed By: #### L 501.4021, L100.0100, L500.2500 ####[facility] [address] [place], [address] Trop T High Sen 14 ng/L Normal <=22 [facility] Comment on above: Performed By: #### L 501.5200, L100.0100, L500.2500, L501.9520, L503.7505, L501.4021 ####[facility] [address] [place], [address] L503.7505on 12-08-2024 Natriuretic peptide B (Bld) [Mass/Vol] 310 pg/mL Normal <=900 [facility] Comment on above: Result Comment: Hear t Failure Unlikely: < 300 pg/mLHeart Failure Likely< 50 Years: > 450 pg/mL50-75 Years: > 900 pg/mL>75 Years: > 1800 pg/mL Performed By: #### L 501.5200, L100.0100, L500.2500, L501.9520, L503.7505, L501.4021 ####[facility] [address] [place], [address] Lactic acid measurementOrder ed By: Odilia Burgos on 12-08-2024 Lactate [Moles/Vol] 1.2 mmol/L 0.0-2.0 [facility] MCV (mean corpuscular volume ) determinationOrdered By: Martha Mead on 12-08-2024 MCV (RBC) [Entitic vol] 87.6 fL 80-94 [facility] MCV (RBC) [Entitic vol] 87.5 fL 80-94 [facility] Magnesiumon 12-08-2024 Magnesium [Mass/Vol] 2.0 mg/dL Normal 1.5-2.2 [facility] Comment on above: Performed By: #### L 501.5200, L501.9520 ####[facility] [address] [place], [address] Magnesium [Mass/Vol] 2.0 mg/dL Normal 1.5-2.2 [facility] Comment on above: Performed By: #### L 501.5200, L100.0100, L500.2500, L501.9520, L503.7505, L501.4021 ####[facility] [address] [place], [address] Magnesium measurement (mass/ volume)Ordered By: Mis Edmondson on 12-08-2024 Magnesium (Unsp spec) [Mass/Vol] 2.0 mg/dL 1.5-2.2 [facility] Magnesium measurement (mass/ volume)Ordered By: Martha Mead on 12-08-2024 Magnesium (Unsp spec) [Mass/Vol] 2.0 mg/dL 1.5-2.2 [facility] Mean corpuscular hemoglobin (MCH) determinationOrdered By: Martha Mead on 12-08-2024 MCH (RBC) [Entitic mass] 30.0 pg 27.0-32.0 [facility] MCH (RBC) [Entitic mass] 29.9 pg 27.0-32.0 [facility] Mean corpuscular hemoglobin concentration (MCHC) determinationOrdered By: Martha Mead on 12-08-2024 MCHC (RBC) [Mass/Vol] 34.2 g/dL - [facility] MCHC (RBC) [Mass/Vol] 34.2 g/dL - [facility] Mean platelet volume determi nationOrdered By: Martha Mead on 12-08-2024 Platelet mean volume (Bld) [Entitic vol] 9.0 fL 6.2-12.0 [facility] Platelet mean volume (Bld) [Entitic vol] 9.1 fL 6.2-12.0 [facility] Monocyte percentageOrdered B y: Martha Mead on 12-08-2024 Monocytes/100 WBC (Bld) 8.6 % 0-10 [facility] Monocytes/100 WBC (Bld) 6.1 % 0-10 [facility] Natriuretic peptide.B prohor hector N-Terminal [Mass/volume] in Serum or PlasmaOrdered By: Martha Mead on 12-08-2024 Natriuretic peptide.B prohormone N-Terminal [Mass/Vol] 310 pg/mL <900 [facility] Comment on above: Heart Failure Unlike ly: < 300 pg/mLHeart Failure Likely< 50 Years: > 450 pg/mL50-75 Years: > 900 pg/mL>75 Years: > 1800 pg/mL Neutrophil percentageOrdered By: Martha Mead on 12-08-2024 Neutrophils/100 WBC (Bld) 72.1 % High 47-70 [facility] Neutrophils/100 WBC (Bld) 69.0 % 47-70 [facility] No Panel InformationOrdered By: Shelbie Guaman on 12-08-2024 Blood Gas Sample Site Not entered [facility] Blood Gas Specimen Type MATHEW [facility] Oxygen Delivery Device Not entered [facility] Nucleated red blood cell per centageOrdered By: Martha Mead on 12-08-2024 Nucleated RBC/100 WBC (Bld) [Ratio] 0 % 0-5 [facility] Nucleated RBC/100 WBC (Bld) [Ratio] 0 % 0-5 [facility] Platelet countOrdered By: Ros Mead on 12-08-2024 Platelets (Bld) [#/Vol] 267 10*3/uL 150-450 [facility] Platelets (Bld) [#/Vol] 191 10*3/uL 150-450 [facility] Potassium measurement (mass/ volume)Ordered By: Martha Mead on 12-08-2024 Potassium (Unsp spec) [Mass/Vol] 4.1 mmol/L 3.3-5.1 [facility] Potassium (Unsp spec) [Mass/Vol] 4.2 mmol/L 3.3-5.1 [facility] Comment on above: Hemolysis present, R esults could be affected. Procalcitonin [Mass/volume] in Serum or Plasma by ImmunoassayOrdered By: Odilia Burgos on 12-08-2024 Procalcitonin IA [Mass/Vol] 0.15 ng/mL High <0.11 [facility] Comment on above: Interpretation:<0.10 -0.25 ng/mL: Antibiotic [...] 12-08-2024 RBC (Bld) [#/Vol] 6.14 10*6/uL 4.6-6.2 [facility] RBC (Bld) [#/Vol] 5.75 10*6/uL 4.6-6.2 [facility] Serum creatinine measurement (mass/volume)Ordered By: Martha Mead on 12-08-2024 Creatinine [Mass/Vol] 1.50 mg/dL High 0.70-1.20 [facility] Creatinine [Mass/Vol] 1.01 mg/dL 0.70-1.20 [facility] Serum glucose measurement (m ass/volume)Ordered By: Martha Mead on 12-08-2024 Glucose [Mass/Vol] 157 mg/dL High 70-99 [facility] Glucose [Mass/Vol] 135 mg/dL High 70-99 [facility] Serum or plasma calcium jarrod urement (mass/volume)Ordered By: Martha Mead on 12-08-2024 Calcium [Mass/Vol] 10.2 mg/dL 7.6-11.0 [facility] Calcium [Mass/Vol] 9.4 mg/dL 7.6-11.0 [facility] Serum or plasma urea nitroge n measurement (mass/volume)Ordered By: Martha Mead on 12-08-2024 Urea nitrogen [Mass/Vol] 13 mg/dL 4- [facility] Urea nitrogen [Mass/Vol] 10 mg/dL - [facility] Sodium levelOrdered By: Daniel Mead on 12-08-2024 Sodium [Moles/Vol] 139 mmol/L 133-145 [facility] Sodium [Moles/Vol] 136 mmol/L 133-145 [facility] TSH DL <= 0.005 mIU/L QnOrde red By: Mis Edmondson on 12-08-2024 TSH Qn 1.930 uIU/mL 0.300-4.20 0 [facility] TSH DL <= 0.005 mIU/L QnOrde red By: Martha Mead on 12-08-2024 TSH Qn 1.800 uIU/mL 0.300-4.20 0 [facility] Thyroid Stim Hormone (TSH)on 12-08-2024 TSH 1.930 uIU/mL Normal 0.300-4.20 0 [facility] Comment on above: Performed By: #### L 501.5200, L501.9520 ####[facility] [address] [place], [address] TSH 1.800 uIU/mL Normal 0.300-4.20 0 [facility] Comment on above: Performed By: #### L 501.5200, L100.0100, L500.2500, L501.9520, L503.7505, L501.4021 ####[facility] [address] [place], [address] Troponin T.cardiac [Mass/vol ume] in Serum or Plasma by High sensitivity methodOrdered By: Martha Mead on 12-08-2024 Troponin T.cardiac High sensitivity method [Mass/Vol] 34 ng/L High <22 [facility] Troponin T.cardiac High sensitivity method [Mass/Vol] 36 ng/L High <22 [facility] Comment on above: Delta: 14 on 5-1222 Troponin T.cardiac High sensitivity method [Mass/Vol] 18 ng/L <22 [facility] Troponin T.cardiac High sensitivity method [Mass/Vol] 14 ng/L <22 [facility] Venous Blood Gason 5 Blood Gas Type MATHEW Normal [facility] Comment on above: Performed By: #### L 9000.0810 ####[facility] [address] [place], [address] CO2 [Moles/Vol] 25 mmol/L Normal 23-33 [facility] Comment on above: Performed By: #### L 9000.0810 ####[facility] [address] [place], [address] HCO3 (Bld) [Moles/Vol] 24 mmol/L Normal 22-26 [facility] Comment on above: Performed By: #### L 9000.0810 ####[facility] [address] [place], [address] O2 Delivery Dev Not entered Normal [facility] Comment on above: Performed By: #### L 9000.0810 ####[facility] [address] [place], [address] SITE Not entered Normal [facility] Comment on above: Performed By: #### L 9000.0810 ####[facility] [address] [place], [address] VBG BE 0 mmol/L Normal -1.0-3.5 [facility] Comment on above: Performed By: #### L 9000.0810 ####[facility] [address] [place], [address] VBG pCO2 34.4 mmHg Low 41-51 [facility] Comment on above: Performed By: #### L 9000.0810 ####[facility] [address] [place], [address] VBG pH 7.45 High 7.32-7.42 [facility] Comment on above: Performed By: #### L 9000.0810 ####[facility] [address] [place], [address] VBG PO2 86 mmHg High 25-40 [facility] Comment on above: Performed By: #### L 9000.0810 ####[facility] [address] [place], [address] VBG SO2 97 High 50-70 [facility] Comment on above: Performed By: #### L 9000.0810 ####[facility] [address] [place], [address] Venous blood base excess mikey surementOrdered By: Shelbie Guaman on 12-08-2024 Base excess Calc (BldV) [Moles/Vol] 0 mmol/L -1.0-3.5 [facility] Venous blood bicarbonate mikey surementOrdered By: Shelbie Guaman on 12-08-2024 HCO3 (Bld) [Moles/Vol] 24 mmol/L 22-26 [facility] Venous blood oxygen saturati on measurementOrdered By: Shelbie Guaman on 12-08-2024 Oxygen saturation in Blood 97 % High 50-70 [facility] Venous blood pH measurementO rdered By: Shelbie Guaman on 12-08-2024 pH (BldV) 7.45 [pH] High 7.32-7.42 [facility] Venous blood partial pressur e of carbon dioxide measurementOrdered By: Shelbie Guaman on 12-08-2024 CO2 (BldV) [Partial pressure] 34.4 mm[Hg] Low 41-51 [facility] Venous blood partial pressur e of oxygen measurementOrdered By: Shelbie Guaman on 12-08-2024 Oxygen (BldV) [Partial pressure] 86 mm[Hg] High 25-40 [facility] White blood cell (WBC) count Ordered By: Martha Mead on 12-08-2024 WBC (Bld) [#/Vol] 20.3 10*3/uL High 4.4-11.0 [facility] WBC (Bld) [#/Vol] 9.1 10*3/uL 4.4-11.0 [facility] Absolute lymphocyte countOrd ered By: Jose David Sims on 12-07-2024 Lymphocytes Auto (Unsp spec) [#/Vol] 2.41 10*3/uL 0.83-4.51 [facility] Absolute neutrophil countOrd ered By: Jose David Sims on 12-07-2024 Neutrophils (Bld) [#/Vol] 5.7 10*3/uL 2.0-7.7 [facility] Anion gap in Serum or Plasma Ordered By: Jose David Sims on 12-07-2024 Anion gap [Moles/Vol] 13 mmol/L 5-15 [facility] Automated lymphocyte count a s percentage of total leukocytesOrdered By: Jose David Sims on 12-07-2024 Lymphocytes/100 WBC Auto (Unsp spec) 25.7 % 19-41 [facility] BUN/creatinine ratioOrdered By: Jose David Sims on 12-07-2024 Urea nitrogen/Creatinine [Mass ratio] 10.5 mg/mg 10-20 [facility] Basophil percentageOrdered B y: Jose David Sims on 12-07-2024 Basophils/100 WBC (Bld) 1.1 % High 0-1 [facility] Bilirubin, totalOrdered By: Jose David Sims on 12-07-2024 Bilirubin [Mass/Vol] 0.49 mg/dL 0.00-1.30 [facility] CBC W/Diff, Automatedon 11-26 Absolute Lymph 2.41 X10 3/uL Normal 0.83-4.51 [facility] Comment on above: Performed By: #### L 501.5200, L501.4900, L501.9520, L501.6400, L100.0100, L500.4050 ####[facility] [address] [place], [address] Absolute Neut 5.7 X10 3/uL Normal 2.0-7.7 [facility] Comment on above: Performed By: #### L 501.5200, L501.4900, L501.9520, L501.6400, L100.0100, L500.4050 ####[facility] [address] [place], [address] Basophils/100 WBC (Bld) 1.1 % High 0-1 [facility] Comment on above: Performed By: #### L 501.5200, L501.4900, L501.9520, L501.6400, L100.0100, L500.4050 ####[facility] [address] [place], [address] Eosinophils/100 WBC (Bld) 4.3 % Normal 0-5 [facility] Comment on above: Performed By: #### L 501.5200, L501.4900, L501.9520, L501.6400, L100.0100, L500.4050 ####[facility] [address] [place], [address] Erythrocyte distribution width (RBC) [Ratio] 15.1 % High 11.6-14.6 [facility] Comment on above: Performed By: #### L 501.5200, L501.4900, L501.9520, L501.6400, L100.0100, L500.4050 ####[facility] [address] [place], [address] Hematocrit (Bld) [Volume fraction] 48.0 % Normal 40-54 [facility] Comment on above: Performed By: #### L 501.5200, L501.4900, L501.9520, L501.6400, L100.0100, L500.4050 ####[facility] [address] [place], [address] Hemoglobin (Bld) [Mass/Vol] 15.8 g/dL Normal 13.0-16.5 [facility] Comment on above: Performed By: #### L 501.5200, L501.4900, L501.9520, L501.6400, L100.0100, L500.4050 ####[facility] [address] [place], [address] IG% 0.600 Normal 0.0-0.9 [facility] Comment on above: Result Comment: IG% - Immature Granulocytes (promyelocytes, myelocytes andmetamyelocytes) > 1% indicates that a LEFT SHIFT is Present. Performed By: #### L 501.5200, L501.4900, L501.9520, L501.6400, L100.0100, L500.4050 ####[facility] [address] [place], [address] Lymphocytes/100 WBC (Bld) 25.7 % Normal 19-41 [facility] Comment on above: Performed By: #### L 501.5200, L501.4900, L501.9520, L501.6400, L100.0100, L500.4050 ####[facility] [address] [place], [address] MCH (RBC) [Entitic mass] 29.6 pg Normal 27.0-32.0 [facility] Comment on above: Performed By: #### L 501.5200, L501.4900, L501.9520, L501.6400, L100.0100, L500.4050 ####[facility] [address] [place], [address] MCHC (RBC) [Mass/Vol] 32.9 g/dL Normal 32-36 [facility] Comment on above: Performed By: #### L 501.5200, L501.4900, L501.9520, L501.6400, L100.0100, L500.4050 ####[facility] [address] [place], [address] MCV (RBC) [Entitic vol] 90.1 fL Normal 80-94 [facility] Comment on above: Performed By: #### L 501.5200, L501.4900, L501.9520, L501.6400, L100.0100, L500.4050 ####[facility] [address] [place], [address] Monocytes/100 WBC (Bld) 7.1 % Normal 0-10 [facility] Comment on above: Performed By: #### L 501.5200, L501.4900, L501.9520, L501.6400, L100.0100, L500.4050 ####[facility] [address] [place], [address] Neutrophils/100 WBC (Bld) 61.2 % Normal 47-70 [facility] Comment on above: Performed By: #### L 501.5200, L501.4900, L501.9520, L501.6400, L100.0100, L500.4050 ####[facility] [address] [place], [address] Nucleated RBC (Bld) [#/Vol] 0 10*3/uL Normal 0-5 [facility] Comment on above: Performed By: #### L 501.5200, L501.4900, L501.9520, L501.6400, L100.0100, L500.4050 ####[facility] [address] [place], [address] Platelet mean volume (Bld) [Entitic vol] 9.2 fL Normal 6.2-12.0 [facility] Comment on above: Performed By: #### L 501.5200, L501.4900, L501.9520, L501.6400, L100.0100, L500.4050 ####[facility] [address] [place], [address] Platelets (Bld) [#/Vol] 207 10*3/uL Normal 150-450 [facility] Comment on above: Performed By: #### L 501.5200, L501.4900, L501.9520, L501.6400, L100.0100, L500.4050 ####[facility] [address] [place], [address] RBC (Bld) [#/Vol] 5.33 10*6/uL Normal 4.6-6.2 [facility] Comment on above: Performed By: #### L 501.5200, L501.4900, L501.9520, L501.6400, L100.0100, L500.4050 ####[facility] [address] [place], [address] RDW SD 49.7 fl High 35.1-43.9 [facility] Comment on above: Performed By: #### L 501.5200, L501.4900, L501.9520, L501.6400, L100.0100, L500.4050 ####[facility] [address] [place], [address] WBC (Bld) [#/Vol] 9.4 10*3/uL Normal 4.4-11.0 [facility] Comment on above: Performed By: #### L 501.5200, L501.4900, L501.9520, L501.6400, L100.0100, L500.4050 ####[facility] [address] [place], [address] Carbon dioxide, total [Moles /volume] in Central venous bloodOrdered By: Jose David Sims on 12-07-2024 CO2 [Moles/Vol] 21.2 mmol/L 21.0-32.0 [facility] Chloride assayOrdered By: Kimani Sims on 12-07-2024 Chloride [Moles/Vol] 104 mmol/L 98-108 [facility] Cholesterolon 12-07-2024 Cholesterol [Mass/Vol] 212 mg/dL High <=200 [facility] Comment on above: Result Comment: Chol esterol level, Desirable <200 mg/dLBorderline high cholesterol 200-239 mg/dLHigh cholesterol >=240 mg/dLRecommendations of the NCEP Adult Treatment Panel for thefollowing risk-cutoff thresholds for the [place] Americanpopulation. Performed By: #### L 501.5200, L501.4900, L501.9520, L501.6400, L100.0100, L500.4050 ####[facility] [address] [place], [address] Comprehensive Metabolic Prof ilon 12-07-2024 Albumin [Mass/Vol] 4.3 g/dL Normal 3.4-4.8 [facility] Comment on above: Performed By: #### L 501.5200, L501.4900, L501.9520, L501.6400, L100.0100, L500.4050 ####[facility] [address] [place], [address] Albumin/Globulin [Mass ratio] 1.4 {ratio} Normal 0.9-2.4 [facility] Comment on above: Performed By: #### L 501.5200, L501.4900, L501.9520, L501.6400, L100.0100, L500.4050 ####[facility] [address] [place], [address] ALK PHOS 78 U/L Normal 40-129 [facility] Comment on above: Performed By: #### L 501.5200, L501.4900, L501.9520, L501.6400, L100.0100, L500.4050 ####[facility] [address] [place], [address] ALT [Catalytic activity/Vol] 44 U/L Normal <=46 [facility] Comment on above: Performed By: #### L 501.5200, L501.4900, L501.9520, L501.6400, L100.0100, L500.4050 ####[facility] [address] [place], [address] AST [Catalytic activity/Vol] 30 U/L Normal <=37 [facility] Comment on above: Performed By: #### L 501.5200, L501.4900, L501.9520, L501.6400, L100.0100, L500.4050 ####[facility] [address] [place], [address] Bilirubin [Mass/Vol] 0.49 mg/dL Normal 0.00-1.30 [facility] Comment on above: Performed By: #### L 501.5200, L501.4900, L501.9520, L501.6400, L100.0100, L500.4050 ####[facility] [address] [place], [address] BUN/CRE 10.5 RATIO Normal 10-20 [facility] Comment on above: Performed By: #### L 501.5200, L501.4900, L501.9520, L501.6400, L100.0100, L500.4050 ####[facility] [address] [place], [address] Calcium [Mass/Vol] 9.4 mg/dL Normal 7.6-11.0 [facility] Comment on above: Performed By: #### L 501.5200, L501.4900, L501.9520, L501.6400, L100.0100, L500.4050 ####[facility] [address] [place], [address] Chloride [Moles/Vol] 104 mmol/L Normal 98-108 [facility] Comment on above: Performed By: #### L 501.5200, L501.4900, L501.9520, L501.6400, L100.0100, L500.4050 ####[facility] [address] [place], [address] CO2 [Moles/Vol] 21.2 mmol/L Normal 21.0-32.0 [facility] Comment on above: Performed By: #### L 501.5200, L501.4900, L501.9520, L501.6400, L100.0100, L500.4050 ####[facility] [address] [place], [address] Creatinine [Mass/Vol] 1.05 mg/dL Normal 0.70-1.20 [facility] Comment on above: Performed By: #### L 501.5200, L501.4900, L501.9520, L501.6400, L100.0100, L500.4050 ####[facility] [address] [place], [address] GAP 13 Normal 5-15 [facility] Comment on above: Performed By: #### L 501.5200, L501.4900, L501.9520, L501.6400, L100.0100, L500.4050 ####[facility] [address] [place], [address] GFR/1.73 sq M.predicted among non-blacks MDRD (S/P/Bld) [Vol rate/Area] 79 mL/min/{1.73_m2} Normal >60 [facility] Comment on above: Result Comment: mL/m in/1.73m2 CKD-EPI Creatinine Equation (2020) Performed By: #### L 501.5200, L501.4900, L501.9520, L501.6400, L100.0100, L500.4050 ####[facility] [address] [place], [address] Globulin (S) [Mass/Vol] 3.0 g/dL Normal 2.2-4.2 [facility] Comment on above: Performed By: #### L 501.5200, L501.4900, L501.9520, L501.6400, L100.0100, L500.4050 ####[facility] [address] [place], [address] Glucose [Mass/Vol] 137 mg/dL High 70-99 [facility] Comment on above: Performed By: #### L 501.5200, L501.4900, L501.9520, L501.6400, L100.0100, L500.4050 ####[facility] [address] [place], [address] Potassium [Moles/Vol] 4.2 mmol/L Normal 3.3-5.1 [facility] Comment on above: Performed By: #### L 501.5200, L501.4900, L501.9520, L501.6400, L100.0100, L500.4050 ####[facility] [address] [place], [address] Sodium [Moles/Vol] 138 mmol/L Normal 133-145 [facility] Comment on above: Performed By: #### L 501.5200, L501.4900, L501.9520, L501.6400, L100.0100, L500.4050 ####[facility] [address] [place], [address] T PROT 7.2 g/dL Normal 5.9-8.4 [facility] Comment on above: Performed By: #### L 501.5200, L501.4900, L501.9520, L501.6400, L100.0100, L500.4050 ####[facility] [address] [place], [address] Urea nitrogen [Mass/Vol] 11 mg/dL Normal 4-19 [facility] Comment on above: Performed By: #### L 501.5200, L501.4900, L501.9520, L501.6400, L100.0100, L500.4050 ####[facility] [address] [place], [address] Eosinophil percentageOrdered By: Jose David Sims on 12-07-2024 Eosinophils/100 WBC (Bld) 4.3 % 0-5 [facility] Erythrocyte distribution wid th ratioOrdered By: Jose David Sims on 12-07-2024 Erythrocyte distribution width (RBC) [Ratio] 15.1 % High 11.6-14.6 [facility] Erythrocyte distribution wid th standard deviationOrdered By: Jose David Sims on 12-07-2024 Erythrocyte distribution width (RBC) [Ratio] 49.7 fl High 35.1-43.9 [facility] Glomerular filtration rate ( GFR) estimation/1.73 sq m using serum, plasma, or whole bOrdered By: Jose David Sims on 12-07-2024 GFR/1.73 sq M.predicted among non-blacks MDRD (S/P/Bld) [Vol rate/Area] 79 mL/min/{1.73_m2} >60 [facility] Comment on above: mL/min/1.73m2 CKD-EP I Creatinine Equation (2020) Hematocrit Auto (Bld) [Volum e fraction]Ordered By: Jose David Sims on 12-07-2024 Hematocrit (Bld) [Volume fraction] 48.0 % 40-54 [facility] Hemoglobin measurementOrdere d By: Jose David Sims on 12-07-2024 Hemoglobin (Bld) [Mass/Vol] 15.8 g/dL 13.0-16.5 [facility] High Density Lipoproteinon 0 12-07-2024 Cholesterol in HDL [Mass/Vol] 55 mg/dL Normal [facility] Comment on above: Result Comment: Manuela onal Cholesterol Education Program (NCEP) guidelines:<40 mg/dL: Low HDL-cholesterol (major risk factor for CHD)>= 60 mg/dL: High HDL-cholesterol (negative risk factor forCHD)HDL-cholesterol is affected by a number of factors, e.g.smoking, exercise, hormones, sex and age. Performed By: #### L 501.5200, L501.4900, L501.9520, L501.6400, L100.0100, L500.4050 ####[facility] [address] [place], [address] Immature granulocytes/100 WB C Auto (Bld)Ordered By: Jose David Sims on 12-07-2024 Immature granulocytes/100 WBC (Bld) 0.600 % 0.0-0.9 [facility] Comment on above: IG% - Immature Granu locytes (promyelocytes, myelocytes and metamyelocytes) > 1% indicates that a LEFT SHIFT is Present. Laboratory - Chemistry and C hemistry - challengeOrdered By: Jose David Sims on 12-07-2024 AST [Catalytic activity/Vol] 30 U/L <38 [facility] MCV (mean corpuscular volume ) determinationOrdered By: Jose David Sims on 12-07-2024 MCV (RBC) [Entitic vol] 90.1 fL 80-94 [facility] Magnesiumon 12-07-2024 Magnesium [Mass/Vol] 2.0 mg/dL Normal 1.5-2.2 [facility] Comment on above: Performed By: #### L 501.5200, L501.4900, L501.9520, L501.6400, L100.0100, L500.4050 ####[facility] [address] [place], [address] Magnesium measurement (mass/ volume)Ordered By: Jose David Sims on 12-07-2024 Magnesium (Unsp spec) [Mass/Vol] 2.0 mg/dL 1.5-2.2 [facility] Mean corpuscular hemoglobin (MCH) determinationOrdered By: Jose David Sims on 12-07-2024 MCH (RBC) [Entitic mass] 29.6 pg 27.0-32.0 [facility] Mean corpuscular hemoglobin concentration (MCHC) determinationOrdered By: Jose David Sims on 12-07-2024 MCHC (RBC) [Mass/Vol] 32.9 g/dL 32-36 [facility] Mean platelet volume determi nationOrdered By: Jose David Sims on 12-07-2024 Platelet mean volume (Bld) [Entitic vol] 9.2 fL 6.2-12.0 [facility] Monocyte percentageOrdered B y: Jose David Sims on 12-07-2024 Monocytes/100 WBC (Bld) 7.1 % 0-10 [facility] Neutrophil percentageOrdered By: Jose David Sims on 12-07-2024 Neutrophils/100 WBC (Bld) 61.2 % 47-70 [facility] Nucleated red blood cell per centageOrdered By: Jose David Sims on 12-07-2024 Nucleated RBC/100 WBC (Bld) [Ratio] 0 % 0-5 [facility] Platelet countOrdered By: Kimani Sims on 12-07-2024 Platelets (Bld) [#/Vol] 207 10*3/uL 150-450 [facility] Potassium measurement (mass/ volume)Ordered By: Jose David Sims on 12-07-2024 Potassium (Unsp spec) [Mass/Vol] 4.2 mmol/L 3.3-5.1 [facility] RBC Auto (Bld) [#/Vol]Ordere d By: Jose David Sims on 12-07-2024 RBC (Bld) [#/Vol] 5.33 10*6/uL 4.6-6.2 [facility] Serum creatinine measurement (mass/volume)Ordered By: Jose David Sims on 12-07-2024 Creatinine [Mass/Vol] 1.05 mg/dL 0.70-1.20 [facility] Serum globulin measurementOr dered By: Jose David Sims on 12-07-2024 Globulin (S) [Mass/Vol] 3.0 g/dL 2.2-4.2 [facility] Serum glucose measurement (m ass/volume)Ordered By: Jose David Sims on 12-07-2024 Glucose [Mass/Vol] 137 mg/dL High 70-99 [facility] Serum or plasma alanine crawford otransferase (ALT) measurementOrdered By: Jose David Sims on 12-07-2024 ALT [Catalytic activity/Vol] 44 U/L <47 [facility] Serum or plasma albumin jarrod urement (mass/volume)Ordered By: Jose David Sims on 12-07-2024 Albumin [Mass/Vol] 4.3 g/dL 3.4-4.8 [facility] Serum or plasma albumin/glob ulin mass ratioOrdered By: Jose David Sims on 12-07-2024 Albumin/Globulin [Mass ratio] 1.4 {ratio} 0.9-2.4 [facility] Serum or plasma alkaline christina sphatase measurementOrdered By: Jose David Sims on 12-07-2024 ALP [Catalytic activity/Vol] 78 U/L 40-129 [facility] Serum or plasma calcium jarrod urement (mass/volume)Ordered By: Jose David Sims on 12-07-2024 Calcium [Mass/Vol] 9.4 mg/dL 7.6-11.0 [facility] Serum or plasma cholesterol in HDL measurement (mass/volume)Ordered By: Jose David Sims on 12-07-2024 Cholesterol in HDL [Mass/Vol] 55 mg/dL >40 [facility] Comment on above: National Cholesterol Education Program (NCEP) guidelines:<40 mg/dL: Low HDL-cholesterol (major risk factor for CHD)>= 60 mg/dL: High HDL-cholesterol (negative risk factor for CHD)HDL-cholesterol is affected by a number of factors, e.g. smoking, exercise, hormones, sex and age. Serum or plasma cholesterol measurement (mass/volume)Ordered By: Jose David Sims on 12-07-2024 Cholesterol [Mass/Vol] 212 mg/dL High <201 [facility] Comment on above: Cholesterol level, D esirable <200 mg/dLBorderline high cholesterol 200-239 mg/dLHigh cholesterol >=240 mg/dLRecommendations of the NCEP Adult Treatment Panel for the following risk-cutoff thresholds for the [place] population. Serum or plasma urea nitroge n measurement (mass/volume)Ordered By: Jose David Sims on 12-07-2024 Urea nitrogen [Mass/Vol] 11 mg/dL 4-19 [facility] Sodium levelOrdered By: Jose David Sims on 12-07-2024 Sodium [Moles/Vol] 138 mmol/L 133-145 [facility] TSH DL <= 0.005 mIU/L QnOrde red By: Jose David Sims on 12-07-2024 TSH Qn 2.510 uIU/mL 0.300-4.20 0 [facility] Thyroid Stim Hormone (TSH)on 12-07-2024 TSH 2.510 uIU/mL Normal 0.300-4.20 0 [facility] Comment on above: Performed By: #### L 501.5200, L501.4900, L501.9520, L501.6400, L100.0100, L500.4050 ####[facility] [id number] [place], [address] Total proteinOrdered By: Carolyn Sims on 12-07-2024 Protein [Mass/Vol] 7.2 g/dL 5.9-8.4 [facility] White blood cell (WBC) count Ordered By: Jose David Sims on 12-07-2024 WBC (Bld) [#/Vol] 9.4 10*3/uL 4.4-11.0 [facility] Basophil percentageOrdered B y: Rod Castellanos on 09-16-2023 Chloride [Moles/Vol] 109 mmol/L 98-107 [facility] Glucose [Mass/Vol] 125 mg/dL 74-106 [facility] Comment on above: Fasting Glucose resu lt from 100 to 125 mg/dL suggests IMPAIRED HOMEOSTASIS per A.D.A. criteria. Hemoglobin (Bld) [Mass/Vol] 14.5 g/dL 13.0-16.5 [facility] Potassium [Moles/Vol] 4.0 mmol/L 3.5-5.1 [facility] Sodium [Moles/Vol] 138 mmol/L 136-145 [facility] WBC (Bld) [#/Vol] 7.9 10*3/uL 4.4-11.0 [facility] Determination of erythrocyte mean corpuscular volume (MCV)Ordered By: Rod Castellanos on 09-16-2023 MCV (RBC) [Entitic vol] 89.3 fL 80-94 [facility] Erythrocyte distribution wid th ratioOrdered By: Rod Castellanos on 09-16-2023 Erythrocyte distribution width (RBC) [Ratio] 14.9 % 11.6-14.6 [facility] Erythrocyte distribution wid th standard deviationOrdered By: Rod Castellanos on 09-16-2023 Erythrocyte distribution width (RBC) [Entitic vol] 48.8 fL 35.1-43.9 [facility] Hematocrit Auto (Bld) [Volum e fraction]Ordered By: Rod Castellanos on 09-16-2023 Hematocrit (Bld) [Volume fraction] 45.0 % 40-54 [facility] Laboratory - Chemistry and C hemistry - challengeOrdered By: Rod Castellanos on 09-16-2023 CO2 [Moles/Vol] 23.0 mmol/L 21.0-32.0 [facility] Urea nitrogen/Creatinine [Mass ratio] 25.0 mg/mg 10-20 [facility] Laboratory - Hematology and Cell countsOrdered By: Rod Castellanos on 09-16-2023 MCH (RBC) [Entitic mass] 28.8 pg 27.0-32.0 [facility] MCHC (RBC) [Mass/Vol] 32.2 g/dL 32-36 [facility] Platelet mean volume (Bld) [Entitic vol] 9.4 fL 6.2-12.0 [facility] Platelets (Bld) [#/Vol] 146 10*3/uL 150-450 [facility] No Panel InformationOrdered By: Rod Castellanos on 09-16-2023 Estimated Creatinine Clearance Calc 116.91 ml/min [facility] Estimated GFR (MDRD) Amer 93 mL/min >60 [facility] Comment on above: GFR Calc Estimated GFR (MDRD) Non-Af Amer 77 mL/min >60 [facility] Comment on above: Non- GFR Calc RBC Auto (Bld) [#/Vol]Ordere d By: Rod Castellanos on 09-16-2023 RBC (Bld) [#/Vol] 5.04 10*6/uL 4.6-6.2 [facility] Serum or plasma calcium jarrod urement (mass/volume)Ordered By: Rod Castellanos on 09-16-2023 Calcium [Mass/Vol] 9.1 mg/dL 8.5-10.1 [facility] Serum or plasma creatinine m easurement (mass/volume)Ordered By: Rod Castellanos on 09-16-2023 Creatinine [Mass/Vol] 1.04 mg/dL 0.70-1.30 [facility] Comment on above: The validity of the calculated GFR & GFRAA in patients over 70 years has not been determined. Clinical correlation is essential. Serum or plasma urea nitroge n measurement (mass/volume)Ordered By: Rod Castellanos on 09-16-2023 Urea nitrogen [Mass/Vol] 26 mg/dL 7-18 [facility] Thin prep Papanicolaou smear with manual screeningOrdered By: Rod Castellanos on 09-16-2023 Thin prep Papanicolaou smear with manual screening 6 5-15 [facility] Absolute lymphocyte countOrd ered By: Bertram Yi on 09-15-2023 Lymphocytes Auto (Unsp spec) [#/Vol] 2.01 10*3/uL 0.83-4.51 [facility] Activated partial thrombopla stin time (aPTT) in platelet poor plasma by coagulation aOrdered By: Bertram Yi on 09-15-2023 aPTT Coag (PPP) [Time] 26.4 s 24.1-36.2 [facility] Automated lymphocyte count a s percentage of total leukocytesOrdered By: Bertram Yi on 09-15-2023 Lymphocytes/100 WBC Auto (Unsp spec) 20.5 % 19-41 [facility] Basophil percentageOrdered B y: Rod Castellanos on 09-15-2023 Basophil percentage 0-5 SEEN /hpf 0-5 [facility] Cholesterol [Mass/Vol] 174 mg/dL <200 [facility] Comment on above: <200 mg/dL Desirable 200-240 mg/dL Borderline >240 mg/dL High Risk Triglyceride [Mass/Vol] 173 mg/dL <199 [facility] Comment on above: The drugs N-Acetylcy steine and Metamizole may falsely depress this assay.Serum Triglycerides Reference Interval Normal <150 mg/dL Borderline high 150 - 199 mg/dL High 200 - 499 mg/dL Very High > or = 500 mg/dL Basophil percentageOrdered B y: Bertram Garnicane on 09-15-2023 Lactate [Moles/Vol] 1.7 mmol/L 0.4-2.0 [facility] Basophils/100 WBC (Bld) 0.9 % 0-1 [facility] Bilirubin [Mass/Vol] 0.80 mg/dL 0.20-1.00 [facility] Comment on above: For patients on eltr ombopag therapy, use of Dimension [place] TBIL is not recommended. Chloride [Moles/Vol] 105 mmol/L 98-107 [facility] Eosinophils/100 WBC (Bld) 2.1 % 0-5 [facility] Glucose [Mass/Vol] 145 mg/dL 74-106 [facility] Comment on above: Fasting Glucose resu lt greater than or equal to 126 mg/dL suggests DIABETES MELLITUS per A.D.A. criteria. Hemoglobin (Bld) [Mass/Vol] 18.3 g/dL 13.0-16.5 [facility] Comment on above: CRITICAL VALUE VERIF IED. CALLED TO [id number]/20/24 Alla6 Ne Castro.RESULTS READ BACK BY SAME . Monocytes/100 WBC (Bld) 11.9 % 0-10 [facility] Neutrophils (Bld) [#/Vol] 6.3 10*3/uL 2.0-7.7 [facility] Neutrophils/100 WBC (Bld) 63.9 % 47-70 [facility] Potassium [Moles/Vol] 4.1 mmol/L 3.5-5.1 [facility] Protein [Mass/Vol] 7.7 g/dL 6.4-8.2 [facility] Sodium [Moles/Vol] 138 mmol/L 136-145 [facility] WBC (Bld) [#/Vol] 9.8 10*3/uL 4.4-11.0 [facility] Bilirubin Test strip Ql (U)O rdered By: Rod Castellanos on 09-15-2023 Bilirubin Ql (U) 3 mg/dL Negative [facility] Comment on above: COLOR OF URINE MAY A FFECT DIPSTICK RESULTS. Determination of erythrocyte mean corpuscular volume (MCV)Ordered By: Bertram Yi on 09-15-2023 MCV (RBC) [Entitic vol] 88.9 fL 80-94 [facility] Direct bilirubinOrdered By: Bertram Yi on 09-15-2023 Bilirubin.direct [Mass/Vol] 0.22 mg/dL 0.00-0.30 [facility] Erythrocyte distribution wid th ratioOrdered By: Bertram Yi on 09-15-2023 Erythrocyte distribution width (RBC) [Ratio] 15.1 % 11.6-14.6 [facility] Erythrocyte distribution wid th standard deviationOrdered By: Bertram Yi on 09-15-2023 Erythrocyte distribution width (RBC) [Entitic vol] 48.6 fL 35.1-43.9 [facility] Hematocrit Auto (Bld) [Volum e fraction]Ordered By: Bertram Yi on 09-15-2023 Hematocrit (Bld) [Volume fraction] 54.6 % 40-54 [facility] Hyaline casts LM.LPF (Urine sed) [#/Area]Ordered By: Rod Castellanos on 09-15-2023 Hyaline casts (Urine sed) [#/Area] 0 /[LPF] 0-5 [facility] Immature granulocytes/100 WB C Auto (Bld)Ordered By: Bertram Yi on 09-15-2023 Immature granulocytes/100 WBC (Bld) 0.700 % 0.0-0.9 [facility] Comment on above: IG% - Immature Granu locytes (promyelocytes, myelocytes and metamyelocytes) > 1% indicates that a LEFT SHIFT is Present. Ketones Test strip Ql (U)Ord ered By: Rod Castellanos on 09-15-2023 Ketones Ql (U) 50 mg/dl Negative [facility] Laboratory - Chemistry and C hemistry - challengeOrdered By: Rod Castellanos on 09-15-2023 Sodium (U) [Moles/Vol] 16 mmol/L Not Establ. [facility] Cholesterol in HDL [Mass/Vol] 45 mg/dL >40 [facility] Comment on above: The drugs N-Acetylcy steine and Metamizole may falsely depress this assay. Reference Range HDL <40 mg/dL Low HDL Cholesterol HDL >or= 60 mg/dL High HDL Cholesterol Cholesterol in LDL [Mass/Vol] 94 mg/dL 0-130 [facility] Laboratory - Chemistry and C hemistry - challengeOrdered By: Bertram Yi on 09-15-2023 Natriuretic peptide B (Bld) [Mass/Vol] 165.1 pg/mL 0-100 [facility] ALP [Catalytic activity/Vol] 70 U/L 45-117 [facility] ALT [Catalytic activity/Vol] 48 U/L 16-61 [facility] CO2 [Moles/Vol] 22.0 mmol/L 21.0-32.0 [facility] Globulin (S) [Mass/Vol] 4.3 g/dL 2.2-4.2 [facility] Lipase [Catalytic activity/Vol] 38 U/L 13-75 [facility] Comment on above: Please note:LIPASE r evised reference range effective 22. New Lipase methodology. Expected to produce lower values than the previous assay method. NEW Reference Range: 13 - 75 U/L Magnesium [Mass/Vol] 2.3 mg/dL 1.6-2.6 [facility] Urea nitrogen/Creatinine [Mass ratio] 14.1 mg/mg 10-20 [facility] Laboratory - CoagulationOrde red By: Bertram Yi on 09-15-2023 INR Coag (Bld) [Relative time] 1.0 {INR} [facility] PT Coag (PPP) [Time] 13.6 s 11.7-14.9 [facility] Laboratory - Hematology and Cell countsOrdered By: Bertram Yi on 09-15-2023 MCH (RBC) [Entitic mass] 29.8 pg 27.0-32.0 [facility] MCHC (RBC) [Mass/Vol] 33.5 g/dL 32-36 [facility] Nucleated RBC/100 WBC (Bld) [Ratio] 0 % 0-5 [facility] Platelet mean volume (Bld) [Entitic vol] 9.4 fL 6.2-12.0 [facility] Platelets (Bld) [#/Vol] 177 10*3/uL 150-450 [facility] Mucus LM Ql (Urine sed)Order ed By: Rod Castellanos on 09-15-2023 Mucus Ql (Urine sed) 3+ /hpf [facility] Nitrite Test strip Ql (U)Ord ered By: Rod Castellanos on 09-15-2023 Nitrite Ql (U) Negative Negative [facility] No Panel InformationOrdered By: Rod Castellanos on 09-15-2023 Urine RBC 0-5 SEEN /hpf 0-5 [facility] VLDL Cholesterol 35 mg/dL 5-40 [facility] No Panel InformationOrdered By: Bertram Yi on 09-15-2023 Estimated Creatinine Clearance Calc 79.58 ml/min [facility] Estimated GFR (MDRD) Amer 65 mL/min >60 [facility] Comment on above: GFR Calc Estimated GFR (MDRD) Non-Af Amer 53 mL/min >60 [facility] Comment on above: Non- GFR Calc Troponin I High Sensitivity 20 pg/mL 3.0-78.0 [facility] Comment on above: Please Note: New Yary t Units and Gender Specific Reference Ranges. For more information see Policy Stat Procedure [place] High Sensitivity Troponin (TNIH) and attachments. Protein Test strip Ql (U)Ord ered By: Rod Castellanos on 09-15-2023 Protein Ql (U) 30 mg/dl Negative [facility] RBC Auto (Bld) [#/Vol]Ordere d By: Bertram Yi on 09-15-2023 RBC (Bld) [#/Vol] 6.14 10*6/uL 4.6-6.2 [facility] Review by pathologistOrdered By: Bertram Yi on 09-15-2023 Pathologist review Cesar (Unsp spec) [Interp] October audra [facility] Serum or plasma calcium jarrod urement (mass/volume)Ordered By: Bertram Yi on 09-15-2023 Calcium [Mass/Vol] 9.2 mg/dL 8.5-10.1 [facility] Serum or plasma creatinine m easurement (mass/volume)Ordered By: Bertram Yi on 09-15-2023 Creatinine [Mass/Vol] 1.42 mg/dL 0.70-1.30 [facility] Comment on above: The validity of the calculated GFR & GFRAA in patients over 70 years has not been determined. Clinical correlation is essential. Serum or plasma thyroid stim ulating hormone (TSH) measurement (units/volume)Ordered By: Bertram Yi on 09-15-2023 TSH Qn 2.82 uIU/mL 0.358-3.74 [facility] Serum or plasma thyroid stim ulating hormone (TSH) measurement (units/volume)Ordered By: Rod Castellanos on 09-15-2023 TSH Qn 3.10 uIU/mL 0.358-3.74 [facility] Serum or plasma urea nitroge n measurement (mass/volume)Ordered By: Bertram Yi on 09-15-2023 Urea nitrogen [Mass/Vol] 20 mg/dL 7-18 [facility] Squamous epithelial cells de tection in urine sediment by light microscopyOrdered By: Rod Castellanos on 09-15-2023 Epithelial cells.squamous LM Ql (Urine sed) 0 SEEN /hpf 0-5 [facility] Thin prep Papanicolaou smear with manual screeningOrdered By: Rod Castellanos on 09-15-2023 Protein (U) [Mass/Vol] 35.9 mg/dL 0.0-11.8 [facility] Thin prep Papanicolaou smear with manual screeningOrdered By: Bertram Yi on 09-15-2023 Thin prep Papanicolaou smear with manual screening 3.4 g/dL 3.2-5.0 [facility] Thin prep Papanicolaou smear with manual screening 32 U/L 15-37 [facility] Thin prep Papanicolaou smear with manual screening 11 5-15 [facility] Urine blood detectionOrdered By: Rod Castellanos on 03-20-2024 RBC Ql (U) 150 /ul Negative [facility] Urine clarityOrdered By: Terri Castellanos on 09-15-2023 Clarity (U) Clear Clear [facility] Urine color determinationOrd ered By: Rod Castellanos on 09-15-2023 Color (U) Yellow Yellow [facility] Urine creatinine measurement (mass/volume)Ordered By: Rod Castellanos on 09-15-2023 Creatinine (U) [Mass/Vol] 427.00 mg/dL NO RANGE EST. [facility] Urine glucose detectionOrder ed By: Rod Castellanos on 09-15-2023 Glucose Ql (U) Normal mg/dl Normal [facility] Urine leukocyte esterase det ection by dipstickOrdered By: Rod Castellanos on 09-15-2023 Leukocyte esterase Test strip Ql (U) 25 /ul Negative [facility] Urine pHOrdered By: Alissa Castellanos on 09-15-2023 pH (U) 5.0 [pH] 5.0 - 8.0 [facility] Urine protein/creatinine mas s ratioOrdered By: Rod Castellanos on 09-15-2023 Protein/Creatinine (U) [Mass ratio] 84 mg/g CRE 0-200 [facility] Urine sediment bacteria coun t by microscopy (number/high power field)Ordered By: Rod Castellanos on 09-15-2023 Bacteria LM.HPF (Urine sed) [#/Area] 0 /[HPF] None Seen [facility] Urine specific gravity measu rementOrdered By: Rod Castellanos on 09-15-2023 Specific gravity (U) [Rel density] 1.025 1.002-1.03 0 [facility] Urine urobilinogen measureme ntOrdered By: Rod Castellanos on 09-15-2023 Urobilinogen Ql (U) 4 mg/dl Normal [facility] Whole blood hemoglobin A1c/t otal hemoglobin ratio (mass fraction)Ordered By: Rod Castellanos on 09-15-2023 HbA1c (Bld) [Mass fraction] 5.8 % 3.8-5.6 [facility] Comment on above: Normal < 5.7 % Predi abetic 5.7 - 6.4 % Diabetic >or= 6.5 % Please note range changes. CNPNon 09-25-2020 CNPN Telephone (FAMPWS) MARCEL TURCIOS ([id number]) 1960 M Date Time Provider Department 09/25/20 MICHELLE TRAMMELL During your visit today, we recorded the following information about you: Odilia Barone Ma 09/25/2020 8:08 AM Signed Office received fax from [employer] in regards to getting an updated script for PAP supplies. See form, if able to complete fax to [phone]. FYI: Pt has not been seen in [...] 3:21 PM Signed Form faxed back to [facility] notifying them that this pt [...] Assessed Reason for Visit: Forms [913] Cmt: [employer]-PAP supplies Prescriptions as of 09/25/2020 Sig: [id number] [...] by ODILIA BARONE MA on 09/25/20 Normal [facility] .CRYBF Path Reviewon 020 CRYPF Path Review Rare crystals consis tent with calcium pyrophosphate are present. Normal [facility] ([place] Comment on above: Result Comment: Elec tronically signed by: RIGOBERTO ARNOLD 07.11.2019 11:59 EST Performed By: #### C ANT CRYBFPR #### [address] [address] #### SYNCT #### [address] [address] CRYBFon 07-08-2019 Crystal BF Sp Synovial fluid [facility] ([place] Comment on above: Performed By: #### C ANT CRYBFPR #### [address] [address] #### SYNCT #### [address] [address] SYNCTon 07-08-2019 Cells Counted (synovial) 100 Normal [facility] ([place]) Comment on above: Performed By: #### C RYBF, CRYBFPR #### [place] [address] #### SYNCT #### [address] [address] Eosinophils/100 WBC (Bld) 1 % Normal [facility] ([place]) Comment on above: Performed By: #### C RYBF, CRYBFPR #### [place] [address] #### SYNCT #### [address] [address] Lymphocytes/100 WBC (Bld) 24 % Normal [facility] ([place]) Comment on above: Performed By: #### C RYBF, CRYBFPR #### [place] [address] #### SYNCT #### [address] [address] Mononuclear Cell % (synovial) 58 % Normal [facility] ([place]) Comment on above: Performed By: #### C RYBF, CRYBFPR #### [place] [address] #### SYNCT #### [address] [address] Neutrophils/100 WBC (Bld) 17 % Normal 0-24 [facility] ([place]) Comment on above: Performed By: #### C RYBF, CRYBFPR #### [place] [id number] #### SYNCT #### [address] [address] Clarity (U) Slightly Bloody Normal [facility] ([place]) Comment on above: Performed By: #### C RYBF, CRYBFPR #### [address] [address] #### SYNCT #### [address] [address] Color (U) Yellow Normal [facility] ([place] Comment on above: Performed By: #### C RYBF, CRYBFPR #### [place] [address] #### SYNCT #### [address] [address] White Blood Cells (synovial) 200 /mm3 High 0-199 [facility] ([place] Comment on above: Performed By: #### C RYBF, CRYBFPR #### [place] [address] #### SYNCT #### [address] [address] .Urinalysis Microscopic (AO) on 02-28-2019 RBC (U) [#/Vol] 5-10 None Seen [facility] [place] Comment on above: Performed By: #### U A, UAMICAO #### [place] [address] UA Mucous Trace Normal [facility] ([place] Comment on above: Performed By: #### U A, UAMICAO #### [place] [address] UA Squam Epithelial 0-5 None Seen [facility] [place] Comment on above: Performed By: #### U A, UAMICAO #### [place] [address] UA WBC 0-5 None Seen [facility] [place] Comment on above: Performed By: #### U A, UAMICAO #### [place] [address] UAon 02-28-2019 Color (U) Yellow Normal [facility] [place] Comment on above: Performed By: #### U A, UAMICAO #### [place] [address] Glucose (U) [Mass/Vol] Negative Normal Negative [facility] [place] Comment on above: Performed By: #### U A, UAMICAO #### [place] [address] Ketones Ql (U) Negative Normal Negative [facility] [place] Comment on above: Performed By: #### U A, UAMICAO #### [place] [address] UA Appear Clear Normal Clear [facility] [place] Comment on above: Performed By: #### U A, UAMICAO #### [place] [address] UA Blood Moderate Negative [facility] [place] Comment on above: Performed By: #### U A, UAMICAO #### [place] [address] UA Leuk Est Negative Normal Negative [facility] [place] Comment on above: Performed By: #### U A, UAMICAO #### [place] [address] UA Nitrite Negative Normal Negative [facility] [place] Comment on above: Performed By: #### U A, UAMICAO #### [place] [address] UA pH 6.0 Normal 5.0 - 8.0 [facility] [place] Comment on above: Performed By: #### U A, UAMICAO #### [place] [address] UA Protein Trace Normal Negative [facility] ([place] Comment on above: Performed By: #### U A, UAMICAO #### [place] [address] UA Spec Grav 1.025 Normal 1.015-1.02 5 [facility] ([place] Comment on above: Performed By: #### U A, UAMICAO #### [place] [address] UA Specimen Type Clean Catch Normal [facility] ([place]) Comment on above: Performed By: #### U A, UAMICAO #### [place] [address] UA Urobilinogen 0.2 E.U./dL Normal 0.2-1.0 [facility] ([place] Comment on above: Performed By: #### U HARRIS BoswellMICAO #### [place] [address] Urobilinogen Qn (U) Negative Normal Negative [facility] ([place]) Comment on above: Performed By: #### U A, UAMICAO #### [place] [id number] ANES [place] 05-26-2017 ANES POST HNO ID: [id number] thor: Denise Ruvalcabaervice: AnesthesiologyAuthor Type: AnesthesiologistType: Anesthesia [...] 26, 2017 : 1:29 PM PAGER/CONTACT #: [phone] [facility] ANE PREOPon 05-26-2017 ANES PREOP HNO ID: [id number] thor: Denise Ruvalcabaervice: AnesthesiologyAuthor Type: AnesthesiologistType: Anesthesia [...] May 26, 2017 : 8:43 AM CSN: [id number] [facility] BRIEF OP NOTon 05-26-2017 BRIEF OP NOT HNO ID: [id number] thor: Cecilia Stevenervice: General SurgeryAuthor Type: PhysicianType: Brief Op NoteFiled: 05/26/2017 11:34 AMNote Text:BRIEF OPERATIVE NOTATION FOR SURGICAL PROCEDURE.Marcel Turcios [id number] maleLOG ID: [id number]/Procedure Date: 05/26/2017Incision/Procedure Start Time: 10:22 AMIncision Close/Procedure End Time: 11:28 AMSurgeon(s)/Proceduralist(s ) and Service Order Expediter(s):Surgeon(s) and Role: * Cecilia Crisostoom - PrimaryRegistered Nurse Lapidarist: Krissy (Rn) MARGI TangREFERRING PHYSICIAN:OutpatientDEPT: RITU PROVIDER: Volodymyr POS:[id number] : GeneralASA CLASS: 3 - SevereDIAGNOSIS: right inguinal herniaPROCEDURE: laparoscopic right inguinal hernia repair with mesh - [id number]: 1700EBL: 20URINE - 200Specimens: noneADDITIONAL DIAGNOSES:FINDINGS: indirect RIHCOMPLICATIONS: NonePMHx -PAST MEDICAL HISTORYDiagnosis Date- Ankylosis of lower leg joint- Chronic obstructive asthma, unspecified- Depressive disorder, not elsewhere classified- Esophageal reflux- Morbid obesity (HCC)- Panic anxiety syndrome 07/26/2010- Posttraumatic stress disorder- Unspecified sleep apneaCOMORBIDITIES - ObesityPost Op Occurrences - NoneWound Classification - CleanOperative note dictated in the dictation system.- [id number] Crisostomo MD [facility] NURSING PROGon 05-26-2017 NURSING PROG HNO ID: [id number] thor: Rosana (Rn) Cammy Coradoice: (none)Author Type: Registered NurseType: Nursing Progress NoteFiled: 05/26/2017 12:34 PMNote Text: Nursing Progress NotePatient Name: Marcel TurciosN: [id number] Location: [place] Surgery/[place] Surgery Pt offered a snack and [...] note was completed by: Rosana Corado RN [facility] NURSING PROG HNO ID: [id number] thor: Rosana (Rn) Cammy Coradoice: (none)Author Type: Registered NurseType: Nursing Progress NoteFiled: 05/26/2017 12:26 PMNote Text: Nursing Progress NotePatient Name: Marcel Michaels [facility] [id number] Location[place] Pt states, Pain is all in the mind and I don't want any more IV meds. Noway. Pt encouraged to be comfortable but continues to decline meds.Joking and laughing with all staff. 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 Wide awake. 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.This note was completed by: Rosana Corado RN [facility] NURSING PROG HNO ID: [id number] thor: Rosana (Rn) WESLEY Coradoervice: (none)Author Type: Registered NurseType: Nursing Progress NoteFiled: 05/26/2017 12:11 PMNote Text: Nursing Progress NotePatient Name: Marcel TurciosMRN: [id number] Location[place] Pt came out of surgery sleeping [...] note was completed by: Rosana Corado RN [facility] OPERATIVE NOon 05-26-2017 OPERATIVE NO HNO ID: [id number] thor: Cecilia tSevenervice: General SurgeryAuthor Type: PhysicianType: Operative ReportFiled: 05/27/2017 6:58 AMNote Text:[facility]- Operative ReportMOSEMARCEL StDOB: 1960 AGE: 56 SEX: MMRN: [id number] ACCTNUM: [id number] SVC: GENS LOCATION: [address] PHYSICIAN: Cecilia Crisostomo M.D.DATE OF PROCEDURE: 05/26/2017SURGEON: Cecilia Crisostomo M.D.WIND TUNNEL MECHANIC: NONEANESTHESIA: Endotracheal.PREOPERATIVE DIAGNOSIS(ES): Right lower quadrant pain. Question of right inguinal hernia versus incisional hernia.POSTOPERATIVE DIAGNOSIS(ES): Indirect right inguinal hernia.NAME OF OPERATION: Laparoscopic right inguinal hernia repair with meshusing a Bard 3DMax large size mesh, reference #[id number], lot number [id number], expires 02/22/2021.INDICATIONS:ESTIM ATED BLOOD LOSS: 20 mL.COMPLICATIONS: [...] was then closed with a running 1 Jbepojlkcas-is-psjlg suture. The 5 ports under direct visualization with nosigns of bleeding. Pneumoperitoneum was released. The umbilical trocarwas removed. The supraumbilical fascia was secured. The skin was closedwith 4-0 Biosyn subcuticular suture. Steri-Strips and dressings wereapplied. The patient was brought to recovery room in stable condition.Cecilia Crisostomo M.D.General SurgeryRG:[id number]: 05/26/2017 11:34:26T: 05/26/2017 22:48:44Job #: [id number] [facility] PLAN OF CAREon 05-26-2017 PLAN OF CARE HNO ID: [id number] thor: Cassandra Kitchen (International Account Executive)Service: (none)Author Type: TechnicianType: Plan of CareFiled: 05/26/2017 12:25 PMNote Text:WAREHOUSE LEAD BEDSIDE DELIVERY SURVEY1. Patient to use [facility] Bedside Delivery - YES2. If fax, patient would like us to fax prescriptions to Pharmacy [facility]choice a. Pharmacy: b. Location: c. Phone:3. Insurance card on file - YES4. Credit card for payment - YESPHARMACY BEDSIDE DELIVERY SERVICEPatient Name: Marcel TurciosN: [id number] marked outpatient medications were Filled at: [place] and delivered tothe patient's bedside to pharm [...] ZANTACTake 1 tablet by mouth twice daily.Cassandra Imtiaz (International Account Executive)PAGER: [phone] 2016 12:25 PM [facility] PT EDon 05-26-2017 PT ED HNO ID: [id number] Author: Sonya BhaktaRn) MARGI Engel Service: Nursing Author Type: Registered Nurse Type: Patient Education Filed: 05/26/2017 8:06 AM Note Text: 0801 Procedure explained and questions answered. Pt verbalizes understanding of post-op care. [facility] NURSING PROGon 04-27-2017 NURSING PROG HNO ID: [id number] thor: Audrey (Rn) WESLEY Glasservice: (none)Author Type: Registered NurseType: Nursing Progress NoteFiled: 04/27/2017 8:14 AMNote Text:PACC Nurse Progress NoteHistory AND Physical:PACC [place] 04[place] PACCOriginal HANDP Date: 04/23/17Labs Within Last 6 Months:CBC: Date 03/08/17 cbc/diff- platelets 143OTHER TEST: Electrolytes, Date 03/08/17 - wnlImaging Within Last 12 Months:N/ACardiac Testing:N/ABMI 42.0Risk Assessment:N/AAnesthesia Review:Hx ZAN- no cpap use Mild COPDNarrative:N/APre-op Considerations:H x PTSD, anxietyPt had colonoscopy 04/26/17Chart Check:Kathrine Glass RNOctober 2016 8:11 AM [facility] ANES [place] 04-26-2017 ANES POST HNO ID: [id number] thor: Abraham Colliere: AnesthesiologyAuthor Type: AnesthesiologistType: Anesthesia [...] 26, 2017 : 2:54 PM PAGER/CONTACT #: [phone] [facility]ES PREOP HNO ID: [id number] thor: Abraham De LeónService: AnesthesiologyAuthor Type: AnesthesiologistType: [...] and potassium results:Potassium 4.5 08/06/2015ANES DOS/PREOP NOTE:Vitals: [id number]: 140/80Pulse: 101Resp: 18Temp: 37.3 ?C (99.1 ?F)TempSrc: [...] iv infusion 30 mL/hr INTRAVENOUS CONTINUOUS Cecilia ShelbytroyLast Rate: 30 mL/hr at 04/26/17 1129 30 [...] April 26, 2017 : 11:40 AM CSN: [id number] Normal [facility] HISTORY PHYSICALon HISTORY PHYSICAL HNO ID: [id number] thor: Cecilia Stevenervice: General SurgeryAuthor Type: PhysicianType: [...] presented emerged [place] on 3 differentoccasions at [facility]. 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 His only previous surgical history was appendectomy [...] quadrant spigelian possible right inguinal [facility]. The planned surgical procedure was discussed extensively [...] been [facility]ammell [facility]. This note will be forwarded to Dr. Michelle Robert MD.???Diagnoses: (R19.4) Change in bowel habits (primary encounter diagnosis)(K59.00) Constipation, unspecified constipation type(R10.31) RLQ abdominal pain(K43.2) Incisional hernia, without obstruction or gangrene?Anticipated CPT Code: laparoscopic right inguinal hernia repair with mesh- [id number]?Anticipated Anesthetic: General?Patient weight: Blood pressure 158/94, pulse 106. BMI: There is noheight or weight on file to calculate BMI.?Planned antibiotic: Ancef 3gm IVPB bat person to OR?SCDs needed - Yes??Return to Clinic: The patient is instructed to follow-up with me forendoscopy in 10 days.? Cecilia Crisostomo MD [facility] NURSING PROGon 04-26-2017 NURSING PROG HNO ID: [id number] thor: Padma (Rn) WESLEY Venturaervice: NursingAuthor Type: Registered NurseType: Nursing Progress NoteFiled: 04/26/2017 1:07 PMNote Text: Nursing Progress NotePatient Name: Marcel TurciosMRN: [id number] Location[place] pt given urinal to void, updated on delay into the OR By . HR 93,PO 94% on RA, call light in reach, daughter at bedside.This note was completed by: Padma Ventura, MARGI [facility] SURGICAL PATHOLOGYon 017 SURGICAL PATHOLOGY [facility]: [id number] Physician: CECILIA CRISOSTOMO MD FINAL DIAGNOSISColon, transverse [...] submitted in one cassette.Gross examination performed at [address] 04/26/2017 9:36:12 PMPatient ID #: [id number] of Report: 04/28/2017Date of Procedure: 04/26/2017Date of Receipt: 04/26/2017Submitted by: CECILIA CRISOSTOMO MDLocation: MEORDiagnostic interpretation performed at [facility], [address] [place] [address]. [facility] Comment on above: Performed By: #### P ATHS ####[facility] [place] [phone] NURSING PROGon 04-23-2017 NURSING PROG HNO ID: [id number] thor: Mckayla Nobles (Rn) [place], WESLEYervice: (none)Author Type: Registered NurseType: Nursing Progress [...] painChart Check:Louis Madden RNOctober 2016 9:04 AM [facility] HOSPon 04-15-2017 HOSP Patient:Yvan Turcios JMRN: Height:6' [...] days for the following basenames: K,HCTProgress Notes ([facility]):Campos Wylie Surg Coord 04/15/2017 11:21 AM Signedpatient scheduled 04-26-2017 and 05-12-[address] Crisostomo in [place] forcolonoscopy and Lap Incisional hernia Campos Wylie Surg CoordProgress Notes ([facility]):Cecilia Crisostomo MD 04/15/2017 1:10 PM SignedHISTORY AND PHYSICALTimwiley Michaels Karolina1960REFERRING PHYSICIAN: Michelle Trammell, DARYL COMPLAINT: Consult (Consult RLQ abd pain)HPI: Marcel [...] emerged [place] on 3 different occasions at [facility].He has had 3 CT scans [...] by atruck 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 Refer to printed prep instructions fromur doctor.tamsulosin ER (FLOMAX) 0.4 mg cp24 Take [...] by the nurse and reviewed by Dada bartlett no exam notes on file for this [...] laparoscopic right inguinal hernia repair with mesh -[id number] Anesthetic: GeneralPatient weight: Blood pressure 158/94, pulse 106. BMI: There is no heightor weight on file to calculate BMI.Planned antibiotic: Ancef 3gm IVPB bat person to ORSCDs needed - YesReturn to Clinic: The patient is instructed to follow-up with me for endoscopyin 10 days. Cecilia Crisostomo MD [facility] HOSP Patient:Yvan Turcios JMRN: Height:6' 1(1.854 m)Weight:No patient weight recorded within the last 30 days.Outpatient Medications as of 05/26/17:dextroamphetamine-a mphetamine (ADDERALL) 10 mg tabletLORazepam (ATIVAN) 1 mg tabletranitidine (ZANTAC) 150 mg tabletalbuterol (PROVENTIL) 2.5 mg /3 mL (0.083 %) nebulizer solutionbudesonide-formotero l (SYMBICORT) 160-4.5 mcg/actuation inhalerAdmission/Clinic Administered Medications as of 05/26/17:lactated ringers infusionceFAZolin 3 g in sterile water 30 mL (ANC)Problem List:Major depressive disorder, single episode, unspecified [F32.9]Esophageal reflux [K21.9]Sleep apnea [G47.30]Morbid obesity (HCC) [E66.01]Posttraumatic stress disorder [F43.10]Cervicalgia [M54.2]Smoker [F17.200]COPD (chronic obstructive pulmonary disease) ([facility]) [J44.9]Panic anxiety syndrome [F41.0]Achilles bursitis or tendinitis [M76.60]Screening for colon cancer [Z12.11]Incisional hernia [K43.2]Allergies:Antidepress ants [Tricyclic Compounds]CodeineIvp Dye [Iodine]Ritalin [Methylphenidate]Date Verified: 05/26/17Lab ValuesNo results within the last 30 days for the following basenames: K,HCTProgress Notes ([facility]):Heather Hilliard 05/18/2017 1:08 PM SignedPatient has been identified by name and date of : YesRX INSTRUCTIONS:Print and leave at the Medical records front office administrator. No need to notify patient.Heather Gutiérrez PsrOdilia Barone Ma 05/18/2017 1:51 PM SignedPatient has tried contacting the office a few times and is unable to getthrough. Conversation below was cut off and he stopped in the office due tobeing in the middle of moving and his car broke down. Would like to picking tech anRx for Adderall while he is here. Waiting in the waiting room currently.Odilia Bose CNP, PIGS FEET CLEANER 05/18/2017 1:56 PM SignedOk to fill.Approved. Handed to patient.OARRS website checked and validated. All prescriptions have been APPROPRIATELYfilled. No suspicious activity was identified.- 05/18/2017 by Gideon Bose CNP [facility] Vital Signs Date Time Vital Sign Value Performing Clinician Facility 01-20-2025 11:09-0400 Heart rate 83 /min Dr. Jose David Sims MD Work Phone: 0(695)819-504128 [place] [address] 01-20-2025 11:09-0400 Respiratory rate 19 /min Dr. Jose David Sims MD Work Phone: 5(453)194-663303 [place] [address] 01-20-2025 10:25-0400 Inhaled oxygen flow rate 2 L/min Dr. Jose David Sims MD Work Phone: 0(945)375-818603 [place] [address] 01-20-2025 10:16-0400 Body temperature 98.6 [degF] Dr. Jose David Sims MD Work Phone: 0(132)335-619003 [place] [address] 01-20-2025 10:16-0400 Diastolic blood pressure 63 mm[Hg] Dr. Jose David Sims MD Work Phone: 7(493)814-518103 [place] [address] 01-20-2025 10:16-0400 SaO2% (BldA) [Mass fraction] 94 % Dr. Jose David Sims MD Work Phone: 0(072)899-454493 [address] 01-20-2025 10:16-0400 Systolic blood pressure 130 mm[Hg] Dr. Jose David Sims MD Work Phone: 1(794)162-394093 [address] 01-20-2025 05:39-0400 Body mass index (BMI) [Ratio] 48.3 kg/m2 Dr. Jose David Sims MD Work Phone: 5(674)572-799528 [place] [address] 01-20-2025 05:39-0400 Body weight 165.[address] Jose David Sims MD Work Phone: 4(803)478-310203 [place] [address] 01-18-2025 14:22-0400 Body height 185.[address] Jose David Sims MD Work Phone: 7(170)823-100803 [place] [address] 01-17-2025 14:00-0400 Body temperature 98.2 [degF] Dr. Jose David Sims MD Work Phone: 0(129)082-017693 [address] 01-17-2025 14:00-0400 Diastolic blood pressure 108 mm[Hg] Dr. Jose David Sims MD Work Phone: 0(964)770-068928 [place] [address] 01-17-2025 14:00-0400 Heart rate 135 /min Dr. Jose David Sims MD Work Phone: 4(727)917-611603 [place] [address] 01-17-2025 14:00-0400 Respiratory rate 21 /min Dr. Jos eDavid Sims MD Work Phone: 1(683)885-827303 [place] [address] 01-17-2025 14:00-0400 SaO2% (BldA) [Mass fraction] 94 % Dr. Jose David Sims MD Work Phone: 6(362)026-161903 [place] [address] 01-17-2025 14:00-0400 Systolic blood pressure 159 mm[Hg] Dr. Jose David Sims MD Work Phone: 0(669)671-547403 [place] [address] 01-17-2025 11:45-0400 Inhaled oxygen flow rate 2 L/min Dr. Jose David Sims MD Work Phone: 7(461)042-159503 [place] [address] 01-17-2025 09:31-0400 Body height 185.[address] Jose David Sims MD Work Phone: 6(079)724-967403 [place] [address] 01-17-2025 09:31-0400 Body mass index (BMI) [Ratio] 48.9 kg/m2 Dr. Jose David Sims MD Work Phone: 0(201)315-322803 [place] [address] 01-17-2025 09:31-0400 Body weight 168.[address] Jose David Sims MD Work Phone: 1(288)005-723803 [place] [address] 12-10-2024 05:56-0400 Body temperature 97.4 [degF] Dr. Jose David Sims MD Work Phone: 7(030)356-021703 [place] [address] 12-10-2024 05:56-0400 Diastolic blood pressure 105 mm[Hg] Dr. Jose David Sims MD Work Phone: 2(760)073-896403 [place] [address] 12-10-2024 05:56-0400 Heart rate 166 /min Dr. Jose David Sims MD Work Phone: 5(565)001-949793 [address] 12-10-2024 05:56-0400 Respiratory rate 24 /min Dr. Jose David Sims MD Work Phone: 1(559)705-984303 [place] [address] 12-10-2024 05:56-0400 SaO2% (BldA) [Mass fraction] 92 % Dr. Jose David Sims MD Work Phone: 9(637)020-911003 [place] [address] 12-10-2024 05:56-0400 Systolic blood pressure 151 mm[Hg] Dr. Jose David Sims MD Work Phone: 3(855)161-001503 [place] [address] 12-09-2024 20:23-0400 Inhaled oxygen flow rate 2 L/min Dr. Jose David Sims MD Work Phone: 2(882)693-705403 [place] [address] 12-09-2024 16:07-0400 Body height 185.[address] Jose David Sims MD Work Phone: 4(317)182-894803 [place] [address] 12-09-2024 16:07-0400 Body weight 166.[address] Jose David Sims MD Work Phone: 5(167)561-189603 [place] [address] 12-09-2024 06:06-0400 Inhaled oxygen concentration 21 % Dr. Jose David Sims MD Work Phone: 7(499)661-956603 [place] [address] 12-09-2024 02:04-0400 Body mass index (BMI) [Ratio] 48.4 kg/m2 Dr. Jose David Sims MD Work Phone: 7(355)025-596703 [place] [address] 12-09-2024 01:00-0400 Body temperature 97.7 [degF] Dr. Jose David Sims MD Work Phone: 3(785)283-882203 [place] [address] 12-09-2024 01:00-0400 Diastolic blood pressure 74 mm[Hg] Dr. Jose David Sims MD Work Phone: 7(732)366-552803 [place] [address] 12-09-2024 01:00-0400 Heart rate 83 /min Dr. Jose David Sims MD Work Phone: 8(453)469-550703 [place] [address] 12-09-2024 01:00-0400 Inhaled oxygen concentration 14 % Dr. Jose David Sims MD Work Phone: 7(056)613-273303 [place] [address] 12-09-2024 01:00-0400 Respiratory rate 18 /min Dr. Jose David Sims MD Work Phone: [facility] 12-09-2024 01:00-0400 Systolic blood pressure 122 mm[Hg] Dr. Jose David Sims MD Work Phone: 4(792)993-491628 [place] [address] 12-08-2024 21:14-0400 Body mass index (BMI) [Ratio] 49.6 kg/m2 Dr. Jose David Sims MD Work Phone: 3(600)350-185003 [place] [address] 12-08-2024 21:14-0400 Body weight 170.[address] Jose David Sims MD Work Phone: 8(946)933-657503 [place] [address] 12-08-2024 21:08-0400 Body height 185.[address] Jose David Sims MD Work Phone: 1(171)822-072103 [place] [address] 12-08-2024 16:44-0400 Body temperature 98.4 [degF] Dr. Jose David Sims MD Work Phone: 8(665)004-457803 [place] [address] 12-08-2024 16:44-0400 Diastolic blood pressure 117 mm[Hg] Dr. Jose David Sims MD Work Phone: 0(510)566-763303 [place] [address] 12-08-2024 16:44-0400 Heart rate 107 /min Dr. Jose David Sims MD Work Phone: 7(293)767-313703 [place] [address] 12-08-2024 16:44-0400 Inhaled oxygen flow rate 2 L/min Dr. Jose David Sims MD Work Phone: 0(626)486-842903 [place] [address] 12-08-2024 16:44-0400 Respiratory rate 20 /min Dr. Jose David Sims MD Work Phone: 1(500)712-810228 [place] [address] 12-08-2024 16:44-0400 SaO2% (BldA) [Mass fraction] 96 % Dr. Jose David Sims MD Work Phone: 3(221)345-672803 [place] [address] 12-08-2024 16:44-0400 Systolic blood pressure 181 mm[Hg] Dr. Jose David Sims MD Work Phone: 7(271)077-136503 [place] [address] 12-08-2024 16:40-0400 Body height 185.[address] Jose David Sims MD Work Phone: 0(638)731-353503 [place] [address] 12-08-2024 16:40-0400 Body mass index (BMI) [Ratio] 49.4 kg/m2 Dr. Jose David Sims MD Work Phone: 6(583)777-571103 [place] [address] 12-08-2024 16:40-0400 Body weight 169.[address] Jose David Sims MD Work Phone: 3(001)635-187503 [place] [address] 12-08-2024 16:28-0400 Body temperature 97.9 [degF] Dr. Jose David Sims MD Work Phone: 3(870)015-978303 [place] [address] 12-08-2024 16:28-0400 Diastolic blood pressure 89 mm[Hg] Dr. Jose David Sims MD Work Phone: 6(331)652-525003 [place] [address] 12-08-2024 16:28-0400 Heart rate 103 /min Dr. Jose David Sims MD Work Phone: 1(055)272-210403 [place] [address] 12-08-2024 16:28-0400 Respiratory rate 19 /min Dr. Jose David Sims MD Work Phone: 4(642)565-145703 [place] [address] 12-08-2024 16:28-0400 SaO2% (BldA) [Mass fraction] 93 % Dr. Jose David Sims MD Work Phone: 5(712)712-089803 [place] [address] 12-08-2024 16:28-0400 Systolic blood pressure 139 mm[Hg] Dr. Jose David Sims MD Work Phone: 8(999)514-396703 [place] [address] 12-08-2024 15:25-0400 Inhaled oxygen concentration 21 % Dr. Jose David Sims MD Work Phone: 6(947)499-550003 [place] [address] 12-08-2024 12:00-0400 Body mass index (BMI) [Ratio] 49.9 kg/m2 Dr. Jose David Sims MD Work Phone: 8(113)736-566703 [place] [address] 12-08-2024 12:00-0400 Body weight 171.[address] Jose David Sims MD Work Phone: 7(923)621-315603 [place] [address] 12-08-2024 11:59-0400 Body height 185.[address] Jose David Sims MD Work Phone: 1(698)806-706503 [place] [address] 09-16-2023 14:08-0400 Body temperature 98.1 [degF] No Primary Care Physician [facility] 09-16-2023 14:08-0400 Diastolic blood pressure 98 mm[Hg] No Primary Care Physician [facility] 09-16-2023 14:08-0400 Heart rate 87 /min No Primary Care Physician [facility] 09-16-2023 14:08-0400 Respiratory rate 18 /min No Primary Care Physician [facility] 09-16-2023 14:08-0400 SaO2% (BldA) [Mass fraction] 94 % No Primary Care Physician [facility] 09-16-2023 14:08-0400 Systolic blood pressure 153 mm[Hg] No Primary Care Physician [facility] 09-16-2023 12:15-0400 Body height 185.42 cm No Primary Care Physician [facility] 09-16-2023 12:15-0400 Body weight 164.38 kg No Primary Care Physician [facility] 09-16-2023 08:03-0400 Inhaled oxygen flow rate 2 L/min No Primary Care Physician [facility] 09-15-2023 16:53-0400 Body mass index (BMI) [Ratio] 47.8 kg/m2 No Primary Care Physician [facility] 09-15-2023 16:00-0400 Body temperature 97.4 [degF] [facility] 09-15-2023 16:00-0400 Diastolic blood pressure 73 mm[Hg] [facility] 09-15-2023 16:00-0400 Heart rate 98 /min [facility] 09-15-2023 16:00-0400 Respiratory rate 24 /min [facility] 09-15-2023 16:00-0400 SaO2% (BldA) [Mass fraction] 98 % [facility] 09-15-2023 16:00-0400 Systolic blood pressure 128 mm[Hg] [facility] 09-15-2023 14:00-0400 Inhaled oxygen flow rate 2 L/min [facility] 09-15-2023 11:34-0400 Body mass index (BMI) [Ratio] 41.9 kg/m2 [facility] 09-15-2023 11:34-0400 Body weight 144.3 kg [facility] 09-15-2023 11: Body height 185.42 cm [facility] Encounters Encounter Date Encounter Type Care Provider Facility Start: 01-20-2025 Non-patient / Non-visit Dr. Michelle Altman DO [facility] Work Phone: Start: 01-19-2025 [facility] Facility:[facility] [place] Start: 01-19-2025 Non-patient / Non-visit Dr. Clark Lerma MD -[facility] Start: 01-18-2025 Non-patient / Non-visit Dr. Sasha Rice MD [facility] Start: 01-17-2025 [facility] Facility:[facility] [place] Start: 01-17-2025 End: 01-20-2025 Evaluation and management of inpatient Dr. Jaimie Okeefe MD -[facility] Work Phone: Start: 01-16-2025 ambulatory [facility] PHYS[facility] Facility :A Start: 01-16-2025 End: 01-16-2025 Emergency department patient visit ANUP CURRY DO [facility] Start: 12-10-2024 Non-patient / Non-visit Dr. Jesse Urban MD [facility] Start: 12-10-2024 Non-patient / Non-visit Dr. Odliia Burgos DO [facility] Work Phone: Start: 12-09-2024 [facility] Facility:[facility] [place] Start: 12-09-2024 Non-patient / Non-visit Dr. Jesse Urban MD [facility] Start: 12-09-2024 [facility] Facility:[facility] [place] Start: 12-09-2024 End: 12-10-2024 Evaluation and management of inpatient Dr. Odilia Burgos DO -[facility] Work Phone: Start: 12-08-2024 [facility] Facility:[facility] [place] Start: 12-08-2024 End: 12-08-2024 Evaluation and management of inpatient Dr. Mis Edmondson MD -[facility] Unit Work Phone: Start: 12-07-2024 End: 12-07-[address] Jose David Sims MD Work Phone: [facility] Work Phone: Start: 12-07-2024 End: 12-07-[address] Jose David Sims MD -Laboratory [facility] Start: 12-07-2024 End: 12-07-2024 ambulatory Jose David Sims Facility:[facility] Start: 09-16-2023 Non-patient / Non-visit No Primary Care Physician [facility] Work Phone: Start: 09-15-2023 Non-patient / Non-visit No Primary Care Physician [facility] Start: 09-15-2023 End: 09-16-2023 Evaluation and management of inpatient [facility] Unit Work Phone: Start: 05-26-2017 End: 05-26-2017 Located within [facility] Start: 04-26-2017 End: 04-26-2017 Located within [facility] Procedures Date Procedure Procedure Detail Performing Clinician Start: 01-19-[address] e detection Dr[address] Jose David Sims MD Work Phone: Start: 01-19-[address] Jose David Sims MD Work Phone: Start: 01-19-2025 Iadna-dna/rna gi pth gn multiplex probe tq 6-11 Dr. Jose David Sims MD Work Phone: Start: 01-18-[address] Jose David Sims MD Work Phone: Start: 01-17-2025 CT of abdomen and pe lvis without contrast Dr. Jose David Sims MD Work Phone: Start: 01-17-2025 Urnls dip stick/tabl et reagent auto microscopy Dr. Jose David Sims MD Work Phone: Start: 01-17-2025 Plain X-ray abdomen Dr. Jose David Sims MD Work Phone: Start: 01-17-[address] Jose David Sims MD Work Phone: Start: 01-17-2025 Sars-cov-2 Dr. Jose David malloy MD Work Phone: Start: 01-17-[address] Jose David Sims MD Work Phone: Start: 01-17-2025 Plain chest X-ray Dr. Rosario [...] Start: 09-15-2023 Plain chest X-ray Appendectomy [employer] Hernia of abdominal wall (disorder) [employer] Injury of knee (disorder) [employer] Plan of Treatment Date Care Activity Detail Author Start: 01-20-2025 Patient discharge [facility] Start: 01-19-2025 Care planning and problem solving actions [facility] Start: 01-19-2025 [facility] Start: 01-18-2025 Electrocardiographic procedure [facility] Start: 01-18-2025 Vital signs measurements [facility] Start: 01-18-2025 Referral to monogram and letter paster [facility] Start: 01-18-2025 Vital signs measurements [facility] Start: 01-18-2025 Vital signs measurements [facility] Start: 01-18-2025 Vital signs measurements [facility] Start: 01-18-2025 Complete blood count [facility] Start: 01-18-2025 Vital signs measurements [facility] Start: 01-18-2025 Vital signs measurements [facility] Start: 01-18-2025 Vital signs measurements [facility] Start: 01-18-2025 Inhalation therapy procedure [facility] Start: 01-17-2025 Vital signs measurements [facility] Start: 01-17-2025 Vital signs measurements [facility] Start: 01-17-2025 Vital signs measurements [facility] Start: 01-17-2025 Vital signs measurements [facility] Start: 01-17-2025 Following clinical pathway protocol [facility] Start: 01-17-2025 Assessment of risk of venous thromboembolism [facility] Start: 01-17-2025 Clostridioides difficile DNA [Presence] in Unspecified specimen by TITI with probe detection [facility] Start: 01-17-2025 Enteric precautions [facility] Start: 01-17-2025 Incentive spirometry [facility] Start: 01-17-2025 Insertion of catheter into peripheral vein [facility] Start: 01-17-2025 Measuring intake and output [facility] Start: 01-17-2025 Nucleic acid assay [facility] Start: 01-17-2025 Oxygen therapy [facility] Start: 01-17-2025 Plain X-ray abdomen Abdomen Single View (Portable) [facility] Start: 01-17-2025 Providing care according to standard [facility] Start: 01-17-2025 Provision of activity privileges [facility] Start: 01-17-2025 Referral to occupational therapist [facility] Start: 01-17-2025 Referral to service [facility] Start: 01-17-2025 Respiratory pathogens DNA and RNA panel - Respiratory specimen by TITI with probe detection [facility] Start: 01-17-2025 SARS-CoV-2 (COVID-19) Ag [Presence] in Respiratory specimen by Rapid immunoassay [facility] Start: 01-17-2025 Taking nasal swab [facility] Start: 01-17-2025 Urinalysis complete panel - Urine [facility] Start: 01-17-2025 [facility] Start: 01-17-2025 Electrocardiographic procedure [facility] Start: 01-17-2025 Urinary bladder residual urine study [facility] Start: 01-17-2025 Vital signs measurements [facility] Start: 01-17-2025 Verification routine [facility] Start: 01-17-2025 Admission procedure [facility] Start: 01-17-2025 Hospital admission, emergency, from emergency room, medical nature [facility] Start: 01-17-2025 End: 01-17-2025 [facility] Start: 01-17-2025 Continuous pulse oximetry [facility] Start: 01-17-2025 Dual pressure spontaneous ventilation support [facility] Start: 01-17-2025 [facility] Start: 12-10-2024 Consultation [facility] Start: 12-10-2024 Suicide precautions [facility] Start: 12-10-2024 Inhalation therapy procedure [facility] Start: 12-10-2024 Patient discharge [facility] Start: 12-09-2024 Bacteria identified in Urine by Culture Urine Culture [facility] Start: 12-09-2024 [facility] Start: 12-09-2024 Assessment of risk of venous thromboembolism [facility] Start: 12-09-2024 Incentive spirometry [facility] Start: 12-09-2024 Insertion of catheter into peripheral vein [facility] Start: 12-09-2024 Measuring intake and output [facility] Start: 12-09-2024 Oxygen therapy [facility] Start: 12-09-2024 Patient referral to dietitian [facility] Start: 12-09-2024 Physiotherapy of chest [facility] Start: 12-09-2024 Providing care according to standard [facility] Start: 12-09-2024 Provision of activity privileges [facility] Start: 12-09-2024 Referral to monogram and letter paster [facility] Start: 12-09-2024 Referral to occupational therapist [facility] Start: 12-09-2024 Referral to service [facility] Start: 12-09-2024 Tobacco use cessation education [facility] Start: 12-09-2024 [facility] Start: 12-09-2024 Following clinical pathway protocol [facility] Start: 12-09-2024 Hospital admission, emergency, from emergency room, medical nature [facility] Start: 12-09-2024 Respiratory pathogens DNA and RNA panel - Respiratory specimen by TITI with probe detection [facility] Start: 12-09-2024 SARS-CoV-2 (COVID-19) Ag [Presence] in Respiratory specimen by Rapid immunoassay [facility] Start: 12-09-2024 Verification routine [facility] Start: 12-09-2024 Admission procedure [facility] Start: 12-09-2024 Urinalysis complete panel - Urine [facility] Start: 12-09-2024 [facility] Start: 12-08-2024 [facility] Start: 12-08-2024 Oxygen therapy [facility] Start: 12-08-2024 Assessment of risk of venous thromboembolism [facility] Start: 12-08-2024 Insertion of catheter into peripheral vein [facility] Start: 12-08-2024 Measuring intake and output [facility] Start: 12-08-2024 Providing care according to standard [facility] Start: 12-08-2024 Provision of activity privileges [facility] Start: 12-08-2024 Referral to monogram and letter paster [facility] Start: 12-08-2024 Referral to occupational therapist [facility] Start: 12-08-2024 Referral to service [facility] Start: 12-08-2024 [facility] Start: 12-08-2024 Following clinical pathway protocol [facility] Start: 12-08-2024 Thyroid stimulating hormone measurement [facility] Start: 12-08-2024 CT of chest without contrast Chest without Contrast [facility] Start: 12-08-2024 Admission procedure [facility] Start: 12-08-2024 Hospital admission, emergency, from emergency room, medical nature [facility] Start: 12-08-2024 Continuous pulse oximetry [facility] Start: 12-08-2024 Dual pressure spontaneous ventilation support [facility] Start: 12-08-2024 [facility] Start: 12-08-2024 [facility] Start: 12-08-2024 Patient discharge [facility] Start: 12-08-2024 Patient referral to dietitian [facility] Start: 09-16-2023 Patient discharge [facility] Start: 09-16-2023 End: 09-16-2023 Care planning and problem solving actions [facility] Start: 09-15-2023 Following clinical pathway protocol [facility] Start: 09-15-2023 Ambulation without limitation [facility] Start: 09-15-2023 Assessment of risk of venous thromboembolism [facility] Start: 09-15-2023 Cardiac monitoring [facility] Start: 09-15-2023 Continuous positive airway pressure ventilation treatment [facility] Start: 09-15-2023 Incentive spirometry [facility] Start: 09-15-2023 Inhalation therapy procedure [facility] Start: 09-15-2023 Insertion of catheter into peripheral vein [facility] Start: 09-15-2023 Oxygen therapy [facility] Start: 09-15-2023 Providing care according to standard [facility] Start: 09-15-2023 Referral to monogram and letter paster [facility] Start: 09-15-2023 Referral to occupational therapist [facility] Start: 09-15-2023 Referral to service [facility] Start: 09-15-2023 Tobacco use cessation education [facility] Start: 09-15-2023 [facility] Start: 09-15-2023 Hospital admission, emergency, from emergency room, medical nature [facility] Start: 09-15-2023 Protein/Creatinine [Ratio] in Urine [facility] Start: 09-15-2023 Sodium [Moles/volume] in Urine [facility] Start: 09-15-2023 Urinalysis complete panel - Urine [facility] Start: 09-15-2023 Admission procedure [facility] Start: 09-15-2023 Verification routine [facility] Start: 09-15-2023 Bacteria identified in Blood by Culture Blood Culture [facility] Start: 09-15-2023 End: 09-15-2023 Blood culture [facility] Start: 09-15-2023 [facility] Start: 09-15-2023 Patient referral to dietitian [facility] Anion gap in Serum or Plasma [facility] Anion gap in Serum or Plasma [facility] Bacteria identified in Sputum by Respiratory culture [facility] Bilirubin measurement, urine [facility] BUN/Creatinine ratio [facility] BUN/Creatinine ratio [facility] Calcium [Mass/volume ] in Serum or Plasma [facility] Calcium [Mass/volume ] in Serum or Plasma [facility] Carbon dioxide, tota l [Moles/volume] in Central venous blood [facility] Carbon dioxide, tota l [Moles/volume] in Central venous blood [facility] Creatinine [Mass/vol ume] in Serum or Plasma [facility] Creatinine [Mass/vol ume] in Serum or Plasma [facility] Erythrocyte mean cor puscular volume determination [facility] Erythrocyte mean cor puscular volume determination [facility] Glucose [Mass/volume ] in Serum or Plasma [facility] Glucose [Mass/volume ] in Serum or Plasma [facility] Hematocrit [Volume F raction] of Blood [facility] Hematocrit [Volume F raction] of Blood [facility] Hemoglobin [Mass/vol ume] in Blood [facility] Hemoglobin [Mass/vol ume] in Blood [facility] Hemoglobin [Presence] in Urine [facility] Lactic acid measurement [facility] Leukocytes [#/volume] in Blood [facility] Leukocytes [#/volume] in Blood [facility] Magnesium measurement [facility] Mean corpuscular hem oglobin concentration determination [facility] Mean corpuscular hem oglobin concentration determination [facility] Mean corpuscular hem oglobin determination [facility] Mean corpuscular hem oglobin determination [facility] Measurement of k[place] es in urine using dipstick [facility] Measurement of renal function [facility] Measurement of renal function [facility] Microscopic observat ion [Identifier] in Unspecified specimen by Gram stain [facility] Microscopic urinalysis [facility] Neutrophil count [facility] Neutrophil percent d ifferential count [facility] Patient referral [facility] Work Phone: pH of Urine [facility] Platelets [#/volume] in Blood [facility] Platelets [#/volume] in Blood [facility] Potassium measurement [facility] Potassium measurement [facility] Red blood cell count [facility] Red blood cell count [facility] Red cell distributio n width determination [facility] Red cell distributio n width determination [facility] Serum chloride measurement [facility] Serum chloride measurement [facility] Sodium measurement [facility] Sodium measurement [facility] Specific gravity of Urine [facility] Troponin T.cardiac [Mass/volume] in Serum or Plasma by High sensitivity method [facility] Urea nitrogen [Mass/ volume] in Serum or Plasma [facility] Urea nitrogen [Mass/ volume] in Serum or Plasma [facility] Urinalysis, blood, qualitative [facility] Urine culture [facility] Urine dipstick for glucose [facility] Urine dipstick for l eukocyte esterase [facility] Urine dipstick for nitrite [facility] Urine dipstick for protein [facility] Urine examination [facility] Urine microscopy: ep ithelial cells [facility] Urine Microscopy: white cells [facility] Urobilinogen [Presen ce] in Urine [facility] Immunizations Immunization Date Immunization Notes Care Provider Chelsea louie 04-28-2016 influenza, injectabl e, quadrivalent, preservative free No Primary Care Physician [facility] 05-21-2015 tetanus toxoid, redu maribell diphtheria toxoid, and acellular pertussis vaccine, adsorbed [facility] 04-24-2015 influenza, injectabl e, quadrivalent, preservative free No Primary Care Physician [facility] 03-15-2014 influenza, injectabl e, quadrivalent, preservative free No Primary Care Physician [facility] 05-15-2009 novel [id number], preservative-free, injectable No Primary Care Physician [facility] 06-16-2006 varicella virus vaccine No P [facility] Care Physician [facility] 02-12-1994 hepatitis B vaccine, adult dosage No Primary Care Physician [facility] 09-08-1993 hepatitis B vaccine, adult dosage No Primary Care Physician [facility] 08-11-1993 hepatitis B vaccine, adult dosage No Primary Care Physician [facility] Payers Date Payer Category Payer Medicare [id number] 2025 Private Health Insurance [id number] 2025 Medicare [id number] 2024 Private Health Insurance [id number] 2024 Self-pay [id number] 2015 Unknown [facility] [id number] 1959 Unknown [id number] 1960 Unknown [id number] Medicare MEDICARE PART A B [id number] Unknown [id number] Unknown [id number] Unknown [id number] Unknown [id number] Unknown [id number] Unknown [id number] Unknown [id number] Unknown [id number] Unknown [id number] Unknown [id number] Unknown [id number] Unknown [id number] Unknown [id number] Unknown [id number] Unknown [id number] Unknown [id number] Unknown [id number] Social History Date Type Detail Facility Start: 09-15-2023 End: 09-16-2023 Tobacco smoking status IDIS Unknown if ever smoked [facility] Start: 08-16-2019 None [facility] Start: 07-16-2019 With Family [facility] Start: 05-20-2020 Cigarettes [facility] Start: 1960 Sex Assigned At Male [facility] Start: 12-08-2024 End: 01-17-2025 Tobacco smoking status NHIS Smokes tobacco daily (finding) [facility] Start: 07-07-2019 Tobacco smoking status Heavy t obacco smoker (finding) [facility] Sexual Orientation Anant Narinder molina [facility] Start: 04-13-2019 Sex Male (finding) [facility] Goals Date Patient Goal Desired Activity /State Functional Status Date Assessment Result Facility 01-20-2025 Functional status Chair [facility] Work Phone: 01-19-2025 Functional status Assistive Devices None [facility] Work Phone: 01-18-2025 Functional status Tolerates Activity Well [facility] Work Phone: 12-10-2024 Functional status Ambulates [facility] Work Phone: 12-08-2024 Functional status Standby Assist [facility] Work Phone: 09-16-2023 Functional status Ambulates [facility] Work Phone: Mental Status Date Assessment Result Facility 01-20-2025 Cognitive function Voice/Name [facility] Work Phone: 12-10-2024 Cognitive function Voice/Name [facility] Work Phone: 12-08-2024 Cognitive function Voice/Name [facility] Work Phone: 09-16-2023 Cognitive function Voice/Name [facility] Work Phone: 09-15-2023 Cognitive function Awake;Alert;A ppropriate;Fol lows Commands [facility] Work Phone: Clinical Notes 05-05-2021 to 02-01-2025 Note Date & Type Note Facility 02-01-2025 Note [facility] 01-20-2025 Discharge summary [facility] 01-20-2025 Discharge summary [facility] 01-20-2025 Note [facility] 01-20-2025 Discharge summary [facility] 01-20-2025 Note [facility] 01-18-2025 Consult note Note Date/Time January 18, 2025 4:49pm [facility] Medical Records Department [address] [place] [address] Consultation - Cardiology 01/18/25 1644 MR#: [id number] Acct: [id number] Name: MARCEL TURCIOS Rep #:[id number] : 1960 64 From: Sasha foster MD PCP: Dr. Jose David Sims MD Status:ADM IN Location: [place] [id number] Assessment & Plan Assessment/Plan (1) Atrial fibrillation with rapid ventricular response: PLAN: Continue Cardizem drip. It would be reasonable to repeat a 2D echo as patient may have had rapid ventricular response for several days since last echowas done about 6 weeks ago. He presented with tachycardia and shortness of breath will be reasonable to see if he has tach induced cardiomyopathy at this time. A limited echo to assess LVEF should be adequate. If his EF is preservedthen tomorrow we can add p.o. Cardizem and DC or wean off IV Cardizem. Agree with continuing Eliquis. HPI Consult Data Date of Consult: 01/18/25 HPI Narrative Reason for Consultation: A-fib with RVR HPI Narrative: MARCEL TURCIOS, is a 64 M who presents with shortness of breath and tachycardia. Patient has known history of atrial fibrillation. He states he has not been very compliant with medications in the past and the last few weeks he has been trying to be compliant. He was at [facility] with A-fib with RVR but signed out AMA and decided to come to [facility] emergency room. Patient has been started onCardizem drip and has been admitted to the PCU. He had an echo on December 09, 2024which revealed preserved EF. [facility] Medical History (Updated 01/17/25 @ 14:[address] Jaimie Okeefe MD) Elevated troponin TAINA (acute kidney injury) High anion gap metabolic acidosis Erythrocytosis Hypoxia Pneumonia Atrial fibrillation with rapid ventricular response Acute respiratory failure with hypoxia COPD exacerbation Dyspnea PTSD (post-traumatic stress disorder) Foraminal stenosis of [...] use type: does not use Physical Exam Const alert and oriented x3 HEENT normocephalic Resp normal respiratory effort Cardio Cardio Narrative: Irregular rhythm Psych mental status grossly normal Risk Stratification Risk Stratification Applicable: No Charges/Coding Visit Charges Inpatient E&M: 30138 Init Hosp L2 Objective Data Vital Signs: Vital Signs Temp Pulse Resp BP Pulse Ox O2 Del Method O2 Flow Rate 98.1 F 113 H 14 142/86 H 98 Bi-pap 2 01/18/25 11:00 01/18/25 16:00 01/18/25 16:00 01/18/25 16:00 01/18/25 16:00 01/18/25 16:00 01/18/25 14:37 Oxygen Flow Rate (L/min) 2 Oxygen Delivery Method Bi-pap Weight: 361 lb 1.875 oz Body Mass Index (BMI) 47.6 Intake & Output: Intake and Output for Last 24 Hours 01/16/25 01/17/25 01/18/25 23:59 23:59 23:59 Intake Total 646.92 / 661.92 1215.0 / 1215.0 Output Total 120 / 120 200 / 200 Balance 526.92 / 541.92 1015.0 / 1015.0 Lab / Micro Data 01/18/25 05:31 01/18/25 05:31 Labs: Laboratory Results - last 24 hr 01/17/25 16:00: Urine Color Yellow, Urine Clarity Clear, Urine pH 5.0, Ur Specific [place] 1.020, Urine Protein 30 H, Urine Glucose (UA) Normal, Urine Ketones 150 A*, Urine Occult Blood 150 H, Urine Nitrite Negative, Urine Bilirubin Negative, Urine Urobilinogen Normal, Ur Leukocyte Esterase Negative, Urine RBC 5-10 SEEN, Urine WBC 0-5 SEEN, Ur Squamous Epith Cells 0-5 SEEN, UrineBacteria 0 SEEN, Urine Mucus 0 SEEN 01/17/25 16:13: Troponin T Hi Sens 4Hr 17 01/18/25 05:31: WBC 11.1 H, RBC 5.24, Hgb 15.6, Hct 45.2, MCV 86.3, MCH 29.8, MCHC 34.5, RDW Std Deviation 46.3 H, RDW Coeff of Penelope 14.6, Plt Count 198, MPV 9.3, Sodium 138, Potassium 4.4, Chloride 105, Carbon Dioxide 19.2 L, Anion Gap 14, BUN 21 H, Creatinine 1.18, Estim Creat Clear Calc 100.16, Est GFR (MDRD) Non-Af 68, BUN/Creatinine Ratio 17.6, Glucose 176 H, Calcium 9.2 Micro: Microbiology 01/17/25 20:30 Mucosa - Nasopharyngeal Coronavirus COVID-19 PCR - Final 01/17/25 20:30 Mucosa - Nasopharyngeal Respiratory Panel (PCR) - Final Cardiology Labs/Tests 01/17/25 16:00: Urine Color Yellow, Urine Clarity Clear, Urine pH 5.0, Ur Specific [place] 1.020, Urine Protein 30 H, Urine Glucose (UA) Normal, Urine Ketones 150 A*, Urine Occult Blood 150 H, Urine Nitrite Negative, Urine Bilirubin Negative, Urine Urobilinogen Normal, Ur Leukocyte Esterase Negative, Urine RBC 5-10 SEEN, Urine WBC 0-5 SEEN 01/18/25 05:31: WBC 11.1 H, RBC 5.24, Hgb 15.6, Hct 45.2, MCV 86.3, MCH 29.8, MCHC 34.5, Plt Count 198, MPV 9.3, Sodium 138, Potassium 4.4, Chloride 105, Carbon Dioxide 19.2 L, Anion Gap 14, BUN 21 H, Creatinine 1.18, Est GFR (MDRD) Non-Af 68, BUN/Creatinine Ratio 17.6, Glucose 176 H, Calcium 9.2 Rhythm: EKG: ECHO: Stress Test: Cardiac Cath: PCI: CT Surgery: Holter monitor: EPS: PPM: CXR: Chest CT Scan: Radiography Diagnostic Testing: Radiology Impression Abdomen/Pelvis CT 01/17/25 18:35 IMPRESSION: 1. Hepatomegaly with fatty infiltration. 2. Distended gallbladder without significant surrounding fat stranding to suggest acute inflammation. If indicated, this can be further evaluated with ultrasound. 3. Bilateral inguinal hernias containing fat. 4. Colonic diverticulosis without acute diverticulitis. Reading Location: [facility] 01/18/25 1647 <Electronically signed by Sasha Rice MD> Cosigner Signature (if applicable): CC: Dr. Jose David Sims MD~ Signed [facility] Work Phone: 1(707) 107-841807-24-2025 Consult note [facility] Medical Records Department [address] [place] [address] Consultation - Cardiology 01/18/25 1644 MR#: [id number] Acct: [id number] Name: MARCEL TURCIOS Rep #:[id number] : 1960 64 From: Sasha foster MD PCP: Dr. Jose David Sims MD Status:ADM [id number] Assessment & Plan Assessment/Plan (1) Atrial fibrillation with rapid ventricular response: PLAN: Continue Cardizem drip. It would be reasonable to repeat a 2D echo as patient may have had rapid ventricular response for several days since last echowas done about 6 weeks ago. He presented with tachycardia and shortness of breath will be reasonable to see if he has tach induced cardiomyopathy at this time. A limited echo to assess LVEF should be adequate. If his EF is preservedthen tomorrow we can add p.o. Cardizem and DC or wean off IV Cardizem. Agree with continuing Eliquis. HPI Consult Data Date of Consult: 01/18/25 HPI Narrative Reason for Consultation: A-fib with RVR HPI Narrative: MARCEL TURCIOS, is a 64 M who presents with shortness of breath and tachycardia. Patient has known history of atrial fibrillation. He states he has not been very compliant with medications in the pastand the last few weeks he has been trying to be compliant. He was at [facility] with A-fib with RVR but signed out AMA and decided to come to [facility] emergency room. Patient has been started onCardizem drip and has been admitted to the PCU. He had an echo on December 09, 2024which revealed preserved EF. [facility] Medical History (Updated 01/17/25 @ 14:[address] Jaimie Okeefe MD) Elevated troponin TAINA (acute kidney injury) High anion gap metabolic acidosis Erythrocytosis Hypoxia Pneumonia Atrial fibrillation with rapid ventricular response Acute respiratory failure with hypoxia COPD exacerbation Dyspnea PTSD (post-traumatic stress disorder) Foraminal stenosis of [...] use type: does not use Physical Exam Const alert and oriented x3 HEENT normocephalic Resp normal respiratory effort Cardio Cardio Narrative: Irregular rhythm Psych mental status grossly normal Risk Stratification Risk Stratification Applicable: No Charges/Coding Visit Charges Inpatient E&M: 53823 Init Hosp L2 Objective Data Vital Signs: Vital Signs Temp Pulse Resp BP Pulse Ox O2 Del Method O2 Flow Rate 98.1 F 113 H 14 142/86 H 98 Bi-pap 2 01/18/25 11:00 01/18/25 16:00 01/18/25 16:00 01/18/25 16:00 01/18/25 16:00 01/18/25 16:00 01/18/25 14:37 Oxygen Flow Rate (L/min) 2 Oxygen Delivery Method Bi-pap Weight: 361 lb 1.875 oz Body Mass Index (BMI) 47.6 Intake & Output: Intake and Output for Last 24 Hours 01/16/25 01/17/25 01/18/25 23:59 23:59 23:59 Intake Total 646.92 / 661.92 1215.0 / 1215.0 Output Total 120 / 120 200 / 200 Balance 526.92 / 541.92 1015.0 / 1015.0 Lab / Micro Data 01/18/25 05:31 01/18/25 05:31 Labs: Laboratory Results - last 24 hr 01/17/25 16:00: Urine Color Yellow, Urine Clarity Clear, Urine pH 5.0, Ur Specific [place] 1.020, Urine Protein 30 H, Urine Glucose (UA) Normal, Urine Ketones 150 A*, Urine Occult Blood 150 H, Urine Nitrite Negative, Urine Bilirubin Negative, Urine Urobilinogen Normal, Ur Leukocyte Esterase Negative, Urine RBC 5-10 SEEN, Urine WBC 0-5 SEEN, Ur Squamous Epith Cells 0-5 SEEN, UrineBacteria 0 SEEN, Urine Mucus 0 SEEN 01/17/25 16:13: Troponin T Hi Sens 4Hr 17 01/18/25 05:31: WBC 11.1 H, RBC 5.24, Hgb 15.6, Hct 45.2, MCV 86.3, MCH 29.8, MCHC 34.5, RDW Std Deviation 46.3 H, RDW Coeff of Penelope 14.6, Plt Count 198, MPV 9.3, Sodium 138, Potassium 4.4, Chloride 105, Carbon Dioxide 19.2 L, Anion Gap 14, BUN 21 H, Creatinine 1.18, Estim Creat Clear Calc 100.16, Est GFR (MDRD) Non-Af 68, BUN/Creatinine Ratio 17.6, Glucose 176 H, Calcium 9.2 Micro: Microbiology 01/17/25 20:30 Mucosa - Nasopharyngeal Coronavirus COVID-19 PCR - Final 01/17/25 20:30 Mucosa - Nasopharyngeal Respiratory Panel (PCR) - Final Cardiology Labs/Tests 01/17/25 16:00: Urine Color Yellow, Urine Clarity Clear, Urine pH 5.0, Ur Specific [place] 1.020, Urine Protein 30 H, Urine Glucose (UA) Normal, Urine Ketones 150 A*, Urine Occult Blood 150 H, Urine Nitrite Negative, Urine Bilirubin Negative, Urine Urobilinogen Normal, Ur Leukocyte Esterase Negative, Urine RBC 5-10 SEEN, Urine WBC 0-5 SEEN 01/18/25 05:31: WBC 11.1 H, RBC 5.24, Hgb 15.6, Hct 45.2, MCV 86.3, MCH 29.8, MCHC 34.5, Plt Count 198, MPV 9.3, Sodium 138, Potassium 4.4, Chloride 105, Carbon Dioxide 19.2 L, Anion Gap 14, BUN 21 H, Creatinine 1.18, Est GFR (MDRD) Non-Af 68, BUN/Creatinine Ratio 17.6, Glucose 176 H, Calcium 9.2 Rhythm: EKG: ECHO: Stress Test: Cardiac Cath: PCI: CT Surgery: Holter monitor: EPS: PPM: CXR: Chest CT Scan: Radiography Diagnostic Testing: Radiology Impression Abdomen/Pelvis CT 01/17/25 18:35 IMPRESSION: 1. Hepatomegaly with fatty infiltration. 2. Distended gallbladder without significant surrounding fat stranding to suggest acute inflammation. If indicated, this can be further evaluated with ultrasound. 3. Bilateral inguinal hernias containing fat. 4. Colonic diverticulosis without acute diverticulitis. Reading Location: [facility] 01/18/25 8665 Cosigner Signature (if applicable): CC: Dr. Jose David Sims MD~ Signed [facility]07-23-2025 Radiology Diagnostic study note [facility] Imaging Services [address] [place] [address] [id number] Abdomen/Pelvis without Cont MR#: [id number] Acct: [id number] Name: MARCEL TURCIOS Rep #: [id number] : 1960 M 64 From: La Nena Cartagena MD PCP: Dr. Jose David Sims MD Status: ADM IN Study:Abdomen/Pelvis without Cont Date of Exa m: 01/17/25 Exam# [id number] Ordering Dr: Franki Okeefe MD EXAM: CT Abdomen and Pelvis Without Intravenous Contrast CLINICAL INDICATION: SMALL BOWEL DILATIONW/ KUB, ABD PAIN, NAUSEA, DIAR TECHNIQUE: Axial computed tomography images of the abdomen and pelvis without intravenous contrast.This CT exam was performed using one or more of the following dose reduction techniques: automated exposure control, adjustment of the mA and/or kV according to patient size, and/or use of iterative reconstruction technique. COMPARISON: No relevant prior studies available. FINDINGS: LUNG BASES: Unremarkable. No mass. No consolidation. ABDOMEN: LIVER: Hepatomegaly with fatty infiltration. GALLBLADDER AND BILE DUCTS: Distended gallbladder without significant surrounding fat stranding to suggest acute inflammation. If indicated, this can be further evaluated with ultrasound. No calcified stones. No ductal dilation. PANCREAS: Unremarkable. No ductal dilation. SPLEEN: Unremarkable. No splenomegaly. ADRENALS: Unremarkable. No mass. KIDNEYS AND URETERS: Unremarkable. No obstructing stones. No hydronephrosis. STOMACH AND BOWEL: Colonic diverticulosis without acute diverticulitis. No obstruction. PELVIS: APPENDIX: No findings to suggest acute appendicitis. BLADDER: Unremarkable. No stones. REPRODUCTIVE: Unremarkable as visualized. ABDOMEN and PELVIS: INTRAPERITONEAL SPACE: Unremarkable. No free air. No significant fluid collection. BONES/JOINTS: No acute fracture. No dislocation. SOFT TISSUES: Bilateral inguinal hernias containing fat. VASCULATURE: Unremarkable. No abdominal aortic aneurysm. LYMPH NODES: Unremarkable. No enlarged lymph nodes. CT/Abdomen/Pelvis without Cont IMPRESSION: 1. Hepatomegaly with fatty infiltration. 2. Distended gallbladder without significant surrounding fat stranding to suggest acute inflammation. If indicated, this can be further evaluated with ultrasound. 3. Bilateral inguinal hernias containing fat. 4. Colonic diverticulosis without acute diverticulitis. Reading Location: [facility] CC: Dr. Jose David Sims MD; Dr. Jaimie Okeefe MD ~ Bulk Plant Manager: Signed [facility]07-23-2025 Discharge summary Author Jose Vallejo [facility] Note Date/Time January 17, 2025 2:16 pm [facility] Medical Records Department [address] [place] [address] Emergency Department Summary 01/17/25 MR#: [id number] Acct: [id number] Name: MARCEL TURCIOS Rep #:[id number] : 1960 64 From: Jose Smith ggett DO PCP: Dr. Jose David Sims MD Status:ADM IN Location: [place] [address] HPI History of Present Illness Chief Complaint: [...] intact Psych: Cooperative, appropriate mood and affect [facility] Medical History PTSD (post-traumatic stress disorder) Foraminal [...] He states he is on BiPAP settings 17/5 constantlywith 2 L of oxygen. States he [...] him. He was placed back on his 17/5. Patient states that he does not takeany [...] Chest x-ray was personally viewed interpreted by pa, ED physician. No pneumonia, effusion, pneumothorax, Cardiomegaly. [...] % (Auto) 64.5 Lymph % (Auto) 25.4 Lee % (Auto) 7.7 Eos % (Auto) 1.1 [...] base, similar to the prior. Reading [facility] Discharge Plan Triage Chief Complaint: Shortness of [...] MD [Primary Care Provider] - Print Language: [place] What to do if you have Problems For any increased pain, shortness of breath, bleeding, nausea or vomiting, chestpain, or any unexpected problems, contact your Primary Care Provider. Call [facility] ([phone]) or report to the closest Emergency Room. Call 911 if necessary. 01/17/25 1416 <Electronically signed by Jose Vallejo DO> Cosigner Signature (if applicable): CC: Dr. Jose David Sims MD ~ Signed [facility] Work Phone: 1(277) 685-491607-23-2025 History and physical note Author Jaimie Okeefe [facility] Note Date/Time January 17, 2025 2:[address] [facility] Medical Records Department [address] [place] [address] H&P Exam - Hospitalist 01/17/25 1400 MR#: [id number] Acct: [id number] Name: MARCLE TURCIOS Rep #:[id number] : 1960 64 From: Jaimie Okeefe MD PCP: Dr. Jose David Sims MD Status:ADM IN Location: [facility] [id number]- 1 HPI - General General Date of Admission: 01/17/25 Date of Service: 01/17/25 Chief Complaint: Tachycardia and panic attack HPI Narrative MARCEL TURCIOS, is a 64-year-old male history of ZAN, COPD, paroxysmal atrial fibrillation noncompliant with anticoagulation, tobacco use who presented to [facility] ED 01/17/2025 with shortness of breath and [...] evaluated bedside. He reports he was at [facility] yesterday for the rapid heart rate and anxiety but they wanted to transfer him to [facility] to see cardiology and he did not want to so he left [facility]. This morning he woke up having a [...] when he is laying down [facility] Medical History (Updated 01/17/25 @ 14:10 by [...] % (Auto) 64.5, Lymph % (Auto) 25.4, Lee % (Auto) 7.7, Eos % (Auto) 1.1, [...] similar to the prior. Reading Location: [facility] Assessment & Plan Assessment/Plan (1) Atrial fibrillation [...] Okeefe MD Charges/Coding Visit Charges Inpatient E&M: 07747 Init Hosp L2 01/17/25 1415 <Electronically signed by Jaimie Okeefe MD> Cosigner Signature (if applicable): CC: Dr. Jose David Sims MD; Dr. Jaimie Okeefe MD~ Signed [facility] Work Phone: 1(882) 336-817407-23-2025 Radiology Diagnostic study note [facility] Imaging Services [address] [place] [address] [id number] Abdomen Single View (Portable) MR#: [id number] Acct: [id number] Name: MARCEL TURCIOS Rep #: [id number] : 1960 M 64 From: Ynes Sanders MD PCP: Dr. Jose David Sims MD Status: ADM IN Study:Abdomen Single View (Portable) Date of Exam: 01/17/25 Exam# [id number] Ordering Dr: Franki Okeefe MD PROCEDURE: ABDOMEN SINGLE VIEW (PORTABLE) 01/17/2025 REASON FOR EXAM: NAUSEA, ABD PAIN TECHNIQUE: ABDOMEN SINGLE VIEW (PORTABLE) COMPARISON: Same day chest radiograph, CT abdomen pelvis 03/02/2019. FINDINGS: Hardware: Surgical anchors within the lower pelvis. Bowel gas: Upper limits of normal in caliber small bowel loops, measuring up to 2.9 cm. The large bowel loops are normal in caliber. Bones: There are degenerative changes of the spine. Other: Chronic rib fracture deformities. RAD/Abdomen Single View (Portable) IMPRESSION: Diffuse small bowel distention. No overt obstruction. Reading Location: [id number] CC: Dr. Jose David Sims MD; Dr. Jaimie Okeefe MD ~ Bulk Plant Manager: Signed [facility]07-23-2025 Discharge summary [facility] Medical Records Department [address] [place] [address] Emergency Department Summary 01/17/25 MR#: [id number] Acct: [id number] Name: MARCEL TURCIOS Rep #:[id number] : 1960 64 From: Jose Smith ggett PCP: Dr. Jose David Sims MD Status:ADM IN Location: [place] [address] HPI History of Present Illness Chief Complaint: [...] states that he has issues trusting doctors whichis why he does not take his daily medication. Patient states at baseline he is bed ridden on BiPAP.He states he has not had a sleep [...] intact Psych: Cooperative, appropriate mood and affect [facility] Medical History PTSD (post-traumatic stress disorder) Foraminal [...] he is currently having a panic attack. Statesat baseline he is bed ridden which he placed himself on a year ago. He states he is on BiPAP settings 17/5 constantlywith 2 L of oxygen. States he [...] him. He was placed back on his 17/5. Patient states that he does not takeany [...] given his heart rate, will give Atrovent. Solu-Medrol,diltiazem bolus, Ativan ordered for symptoms. Respiratory workup [...] will warrant admission. I spoke with the hospitalistservice who accepted admission. They will determine anticoagulation if to continue Eliquis or starton heparin. EKG: Interpreted by me/EM physician: EKG [...] % (Auto) 64.5 Lymph % (Auto) 25.4 Lee % (Auto) 7.7 Eos % (Auto) 1.1 [...] base, similar to the prior. Reading Location[facility] Discharge Plan Triage Chief Complaint: Shortness of [...] MD [Primary Care Provider] - Print Language: [place] What to do if you have Problems For any increased pain, shortness of breath, bleeding, nausea or vomiting, chestpain, or any unexpected problems, contact your Primary Care Provider. Call [facility] ([phone]) or report tothe closest Emergency Room. Call 911 if necessary. 01/17/25 1417 Cosigner Signature (if applicable): CC: Dr. Jose David Sims MD ~ Signed [facility]07-23-[address] [facility] Medical Records Department [address] [place] [address] H&P Exam - Hospitalist 01/17/25 1400 MR#: [id number] Acct: [id number] Name: MARCEL TURCIOS Rep #:[id number] : 1960 64 From: Jaimie Okeefe MD PCP: Dr. Jose David Sims MD Status:ADM IN Location: [facility] [id number]- 1 HPI - General General Date of Admission: 01/17/25 Date of Service: 01/17/25 Chief Complaint: Tachycardia and panic attack HPI Narrative MARCEL TURCIOS, is a 64-year-old male history of ZAN, COPD, paroxysmal atrial fibrillation noncompliant with anticoagulation, tobacco use who presented to [facility] ED 01/17/2025 with shortness of breath and [...] he does not trust doctors which is whyhe is noncompliant with his medications. At baseline [...] of 17 with a repeat []. proBNP 782and D-dimer 0.61. BMP with a bicarb of 16.2 and a gap of 21, BUN 16 and creatinine 1.27 which seemsto be about baseline. EKG showed a wide [...] would ideally would like to avoid CT. D- dimer 0.61 but technically normal when corrected for age and chest x-ray redemonstrated atelectasis. Given patient remained in A-fib with RVR he was given diltiazem bolus and placed on a diltiazem drip and hospitalist contacted for admission. Patient evaluated bedside. He reports he was at [facility] yesterday for the rapid heart rate and anxiety but they wanted to transfer him to [facility] to see cardiology and he did not want to so he left [facility]. This morning he woke up having a panic attack and tachycardic prompting him to come in. Reports that his cough is at baseline and shortness of breath is at baseline, no chest pain. Reports he got an antifungal medicine 4 days ago for some fungal infection in his armpit and since then he has had watery bowel movements and some general discomfortin his abdomen and has not been eating well over the past 4 days has had some nausea. He said he isvery sensitive to medicine and this all started after he took that medicine, this is not what he ispresenting for however. Denies any fevers or chills but does note some sweats. Endorses using the BiPAP at all times and when he has to get up to go to the bathroom he gets very short of breath as hehas to take it off and he will get dizzy but does not feel that way when he is laying down [facility] Medical History (Updated 01/17/25 @ 14:10 by [...] MCV 87.7, MCH 29.5, MCHC 33.6, RDW StdDeviation 47.1 H, RDW Coeff of Penelope 14.9 H, Plt Count 248, MPV 9.4, Immature Gran % (Auto) 0.500, Neut % (Auto) 64.5, Lymph % (Auto) 25.4, Lee % (Auto) 7.7, Eos % (Auto) 1.1, [...] base, similar to the prior. Reading [facility] Assessment & Plan Assessment/Plan (1) Atrial fibrillation [...] Okeefe MD Charges/Coding Visit Charges Inpatient E&M: 98834 Init Hosp L2 01/17/25 1415 Cosigner Signature (if applicable): CC: Dr. Jose David Sims MD; Dr. Jaimie Okeefe MD~ Signed [facility]07-23-2025 Discharge summary Author Jose Yoni [facility] Note Date/Time January 17, 2025 2:16 pm [facility] Medical Records Department [address] [place] [address] Emergency Department Summary 01/17/25 MR#: [id number] Acct: [id number] Name: MARCEL TURCIOS Rep #:[id number] : 1960 64 From: Jose bhakta DO PCP: Dr. Jose David Sims MD Status:ADM IN Location: [place] [address] HPI History of Present Illness Chief Complaint: [...] intact Psych: Cooperative, appropriate mood and affect [facility] Medical History PTSD (post-traumatic stress disorder) Foraminal [...] He states he is on BiPAP settings 17/5 constantlywith 2 L of oxygen. States he [...] him. He was placed back on his 17/5. Patient states that he does not takeany [...] % (Auto) 64.5 Lymph % (Auto) 25.4 Lee % (Auto) 7.7 Eos % (Auto) 1.1 [...] base, similar to the prior. Reading Location: [facility] Discharge Plan Triage Chief Complaint: Shortness [...] MD [Primary Care Provider] - Print Language: St Helen[place] What to do if you have Problems For any increased pain, shortness of breath, bleeding, nausea or vomiting, chestpain, or any unexpected problems, contact your Primary Care Provider. Call [facility] ([phone]) or report to the closest Emergency Room. Call 911 if necessary. 01/17/25 1416 <Electronically signed by Jose Vallejo DO> Cosigner Signature (if applicable): CC: Dr. Jose David Sims MD ~ Signed [facility] Work Phone: 1(210) 803-192707-23-2025 Radiology Diagnostic study note [facility] Imaging Services [address] [place] [address] Chest 1 View MR#: [id number] Acct: [id number] Name: MARCEL TURCIOS Rep #: [id number] : 1960 M 64 From: Kishore Kurtz MD PCP: Dr. Jose David Sims MD Status: REG ER Study:Chest 1 View Date of Exam: 5 Exam# [id number] Ordering Dr: Jose Anne DO PROCEDURE: CHEST [...] prior. Reading Location: [facility] CC: Dr. Jose Vallejo DO; Dr. Jose David Sims MD ~ Bulk Plant Manager: Signed [facility]07-22-2025 Hospital Discharge instructions Patient Education 01/16/2025 19:03:15 [...] seeing Extreme drowsiness, confusion, dizziness, or fainting 8682-5919 [employer]. [address] [place] [address], [place] [address]. All rights reserved. This information is not intended as a substitute for professional medical care. Always follow yourhealthcare professional's instructions. Follow Up Care 01/16/2025 09:52:31 With:MAG BOND MD Address: [address] [facility] [address] [address] [phone] When:2-4 days [facility] 07-22-2025 Note Discharge Instructions Thank you for allowing [facility] to assist you with your healthcare needs. The following is importantdischarge information regarding your hospital visit. Diagnosis from Today's Visit Atrial flutter Left against medical advice What to Do Next Instructions from Your Care Team No qualifying data available. Post Acute Orders No qualifying data available. You Need to Schedule the Following Appointments Follow Up with MAG BOND MD When:Within 2-4 days Where:[address] [facility] [address] [place] [address] [phone] Allergies Contrast dye Ritalin codeine tricyclic antidepressants [...] Medication Leaflets apixaban (a PIX a ban) Rodolfo What is the most important information I should know about apixaban? Apixaban increases your risk of severe or fatal bleeding, especially if you take certain medicines at the same time (including some fenw-oki-bqtmeui medicines). Tell your doctor about all medicines [...] may report side effects to FDA at 3-147-PKO-[phone]. What other drugs will affect apixaban? Sometimes it is not safe to use certain medications at the same time. Some drugs can affect your blood levels of other drugs you take, which may increase side effects or make the medications less effective. Many other drugs (including some azjt-mqh-jjiwxad medicines) can increase your risk of bleeding or blood clots. Tell your doctor about all medicines you have recently used, especially: any other medicines to treat or prevent blood clots; a blood thinner such as heparin or warfarin (Coumadin, Jantoven); an antidepressant; or aspirin or other NSAID (nonsteroidal anti-inflammatory drug) used mcc. This list is not complete and many other drugs may affect apixaban. This includes prescription and gtup-njg-qflkxxv medicines, vitamins, and herbal products. Not all [...] to ensure that the information provided by [employer]. ('[employer]') is accurate, up-to-date, and complete, but no guarantee is made to that effect. Drug information contained herein may be time sensitive. AL[employer]IA information has been compiled for use by healthcare practitioners and consumers in the [place] and therefore [employer] does not warrant that uses outside of the [place] are appropriate, unless specifically indicated otherwise. [employer] drug information does not endorse drugs, diagnose patients or recommend therapy. [employer] drug information isan informational resource designed to [...] effective or appropriate for any given patient. [employer] does not assume any responsibility for any aspect of healthcare administered with the aid of information [employer] provides. The information contained herein is not intended to cover all possible uses, directions, precautions, warnings, drug interactions, allergic reactions, or adverse effects. If you have questions about the drugs you are taking, check with your doctor, nurse or pharmacist. Copyright 0421-8471 [employer]. Version: 6.01. Revision Date: 02/18/2021. diltiazem (oral/injection) [...] (such as 'Afib' or atrial flutter with Nfrdo-Dbvkmntpi-Oxcfq syndrome); a heart condition that causes you [...] may report side effects to FDA at 3-032-WNT-6219. What other drugs will affect diltiazem? Sometimes it is not safe to use certain medicines at the same time. Some drugs can affect your blood levels of other drugs you use, which may increase side effects or make the medicines less effective. Many drugs can affect diltiazem. This includes prescription and vppy-anu-jznuivp medicines, vitamins, and herbal products. Not all [...] to ensure that the information provided by [employer]') is accurate, up-to-date, and complete, but no guarantee is made to that effect. Drug information contained herein may be time sensitive. [employer]IA information has been compiled for use by healthcare practitioners and consumers in the [place] and therefore [employer] does not warrant that uses outside of the [place] are appropriate, unless specifically indicated otherwise. [employer] drug information does not endorse drugs, diagnose patients or recommend therapy. [employer] drug information isan informational resource designed to [...] effective or appropriate for any given patient. [employer] does not assume any responsibility for any aspect of healthcare administered with the aid of information [employer] provides. The information contained herein is not intended to cover all possible uses, directions, precautions, warnings, drug interactions, allergic reactions, or adverse effects. If you have questions about the drugs you are taking, check with your doctor, nurse or pharmacist. Copyright 1804-7751 [employer]. Version: 19.02. Revision Date: 02/03/2024. Education Materials [...] seeing Extreme drowsiness, confusion, dizziness, or fainting 8311-9565 [employer]. [address] [place] [address]. All rights reserved. This information is not intended as a substitute for professional medical care. Always follow yourhealthcare professional's instructions. Additional Information VACCINATE! IT SAVES LIVES! Members of the community who have not yet received the COVID-19 vaccine and would like to receive it can visit one of [facility] vaccine clinics. There are many vaccine clinic locations within the [facility]. For locations and available times, please visit www.gettheshot.coronavirus.[place].gov/. It is important to note that some COVID mobile vaccine clinics are held outdoors and may be canceled in rainy or stormy conditions. To learn more about pediatric vaccinations (ages 5-11), we invite you to visit the [facility] webpage. https://www.[facility].org/pages/7575-Ehkgd-Odxdnhxdgpy-Dpcofbmosd-Hauzs-Apw stions.htmlTo learn more about the COVID-19 vaccine, we invite you to visit the CDC website for a list of frequently asked questions. https://www.cdc.gov/coronavirus/2019-ncov/vaccines/faq.html [employer] Patient Portal Access Instructions: Stay connected with your healthcare team and access your personal medical information anytime with the [employer] Patient Portal. If you would like a full copy of your medical records please contact the [facility] Medical Records Department Wednesday through Wednesday between 8a.m. and 4:30p.m. Please follow the directions below to access the portal: 1.Access the email account you provided upon registration to the [facility].2.Look for an invitation email from [facility].3.Open the email and access the invitation link: Accept Invitation to [facility]4.Fill in the required saucedo to create your account. Sign into www.[employer] with your username and password that you [...] you will allow to register on the [employer] Patient Portal for access to your information. You can also access the [employer] Patient Portal on the [employer]. Simply click on Health Records under [employer] and then click on the [employer] logo. HOW TO SAFELY DISPOSE OF PRESCRIPTION [...] Call your local pharmacy or go to http://bit.ly/4U6Tm5x to find one close to you.3.Make use of household items: Use cat litter or old coffee grounds to dispose medications if other options arenot available. Mix your drugs with these household products, seal them in an airtight container andthrow it into the garbage. Call [facility]: [phone] to be sure your drugs can be [...] been reviewed and explained to me and IKAROLINA TIMOTHY J understand my current condition and have read and understand these discharge instructions. I have received a written copy of the plan/instructions. If I have questions, I am aware that I should contact my doctor. Patient/Director Economic Signature: Date/Time: Relationship to Patient: Witness Name/Signature: Date/Time: [facility]07-22-2025 Note* Exam Date Time Procedure Performing Provider Status 01/16/25 2:23 PM EKG [ED AOH] - ANUP PERRIN DO ; Auth (Verified) ECG Final Report Atrial flutter with predominant 4:1 AV block Ventricular bigeminy Right bundle branch block Inferior infarct, old Lateral leads are also involved Baseline wander in lead(s) V2,V3 Compared to ECG at 01/16/2025 10:25:29 ABNORMAL ECG Electronic Signature: ANUP CURRY DO 01/16/2025 14:26:18 [facility]07-22-2025 Evaluation + Plan note Diagnostic Tests Pending * APTT 01/16/25 * Blood Culture (bacterial) 01/16/25 * Lactic Acid 01/16/25 * Blood Culture (bacterial) 01/16/25 [facility] 07-22-2025 Note* Exam Date Time Procedure Performing Provider Status 01/16/25 12:[address] Abdomen/Pelvis w/o Contrast SANTIAGOUYEN MD; Auth (Verified) [id number] ORIGINAL EXAMINATION: CT OF THE ABDOMEN AND [...] for Exam: Abdominal pain, acute, nonlocalized FINDINGS: Nmze-xc-etqitlzy degenerative changes are noted in the spine. [...] Date: 01/16/2025 12:27:50 PM Ordering Provider: ANUP [place] [address]-22-2025 Note* Exam Date Time Procedure Performing Provider Status 01/16/25 12:17 PM XR Chest 1 View BROOK AGUILAR MD; Au (Verified) [id number] ORIGINAL EXAMINATION: ONE XRAY VIEW OF THE [...] Date: 01/16/2025 12:24:36 PM Ordering Provider: ANUP [facility]07-22-2025 Note* Exam Date Time Procedure Performing Provider Status 01/16/25 10:25 AM EKG [ED AO] - CV ANUP CURRY O; Auth (Verified) ECG Final Report Wide-QRS tachycardia Right bundle branch block Baseline wander in lead(s) III,aVL,V2,V6 Compared to ECG at 12/24/2017 08:46:36 BORDERLINE ECG Electronic Signature: ANUP CURRY DO 01/16/2025 11:14:50 [facility]06-15-2025 [facility] 12-10-2024 Progress note Author Odilia Burgos [facility] Note Date/Time December 10, 2024 7:[address] [facility] Medical Records Department [address] [place] [address] Progress Note - Hospitalist 12/10/24 0548 MR#: [id number] Acct: [id number] Name: MARCEL TURCIOS Rep #:[id number] : 1960 64 From: Odilia Burgos DO PCP: Dr. Jose David Sims MD Status:ADM IN Location: [place] [address] Hospitalist Note Called as patient was extremely [...] with regards to this. He is on [facility] Medicare so they should be able to [...] Patient proceeded to walk out the door. Code tam was called. He did get down the elevator onto the main floor the hospital but became so dyspneic when [facility] arrived that he was escorted in wheelchair back to PCU. [place] slip was filled out. He will need to be evaluatedby crisis once he is medically stable for discharge. He did call his family prior to leaving his room and requested they come in soon as possible. Hopefully, when they arrive they will help calm him. Situation was signed out to the oncoming daytime attending physician. 12/10/24712<Electronically signed by Odilia Burgos DO> Cosigner Signature (if applicable): cc: ~* Signed [facility] Work Phone: 1(388) 187-783706-15-[address] [facility] Medical Records Department [address] [place] [address] Progress Note - Hospitalist 12/10/2448 MR#: [id number] Acct: [id number] Name: MARCEL TURCIOS Brando Rep #:[id number] : 1960 64 From: Odilia Burgos DO PCP: Dr. Jose David Sims MD Status:ADM IN Location: [address] 1 Hospitalist Note Called as patient was [...] with regards to this. He is on [facility] Medicare so they should be able to [...] help better manage his PTSDafter discharge. 12/10/24 0552 Cosigner Signature (if applicable): CC: ~ Signed ADDENDUM by Dr. Odilia uBrgos DO on 12/10/24 at 0933 Addendum I was paged again at 646 by [facility] requesting my presence back on the floor. [...] the hospital but became so dyspneic when [facility] arrived that he was escorted in wheelchair back to U. Colwell slip was filled out. He will need to be evaluatedby crisis once he is medically stable for discharge. He did call his family prior to leaving his room and requested they come in soon as possible. Hopefully, when they arrive they will help calm him. Situation was signed out to the oncoming daytime attending physician. 12/10/24712 Cosigner Signature (if applicable): cc: ~* Signed [facility]06-14-2025 Consult note Author Jesse Urban [facility] Note Date/Time December 09, 2024 8:[address] [facility] Medical Records Department [address] [place] [address] Consultation - Cardiology 12/09/24 1016 MR#: [id number] Acct: [id number] Name: MARCEL TURCIOS Rep #:[id number] : 1960 64 From: Jesse Urban MD PCP: Dr. Jose David Sims MD Status:ADM IN Location: [place] [address] Assessment & Plan Assessment/Plan (1) Elevated troponin: [...] being treated for COPD exacerbation. [facility] Medical History PTSD (post-traumatic stress disorder) Foraminal [...] 72.1 H, Lymph % (Auto) 17.5 L, Lee % (Auto) 8.6, Eos % (Auto) 0.4, [...] 75.7 H, Lymph % (Auto) 16.7 L, Lee % (Auto) 6.4, Eos % (Auto) 0.2, [...] Sl. Cloudy, Urine pH 5.0, Ur Specific [place] 1.025, Urine Protein 100 H, Urine Glucose [...] entered Clinical Comments Home unit: 17/5 21% Cardiology Labs/Tests 12/08/24 02:20: Lactic Acid 1.2 12/08/24 21:20: WBC 20.3 H, RBC 6.14, Hgb 18.4 H*, Hct 53.8, MCV 87.6, MCH 30.0,MCHC 34.2, Plt Count 267, MPV 9.0, Immature Gran % (Auto) 0.600, Neut % (Auto) 72.1 H, Lymph % (Auto) 17.5 L, Lee % (Auto) 8.6, Eos % (Auto) 0.4, [...] 75.7 H, Lymph % (Auto) 16.7 L, Lee % (Auto) 6.4, Eos % (Auto) 0.2, Baso % (Auto) 0.5, Absolute Neuts (auto) 9.3 H, Nucleated RBC % 0, Sodium 136, Potassium 4.4, Chloride 105, Carbon Dioxide 18.1 L, Anion Gap 13, BUN 18, Creatinine 1.77 H, Est GFR (MDRD) Non-Af 42 L, BUN/Creatinine Ratio 10.0, Cegxyud465 H, Calcium 9.2, Phosphorus 2.6 L, Magnesium 2.1, Total Bilirubin 0.71 12/09/24 09:06: Urine Color Yellow, Urine Clarity Sl. Cloudy, Urine pH 5.0, Ur Specific [place] 1.025, Urine Protein 100 H, Urine Glucose [...] or pneumonitis/pneumonia. 2. Mild cardiomegaly. Reading Location: [facility] Chest CT 12/08/24 23:54 IMPRESSION: Coronary artery calcification (CAC) is is present Subsegmental atelectasis/consolidation in the lingula. Please evaluate to exclude superimposed pneumonia. Reading [facility] 12/09/242057 <Electronically signed by Jesse Urban MD> Cosigner Signature (if applicable): CC: Dr. Jose David Sims MD~ Signed [facility] Work Phone: 1(553) 402-755206-14-2025 Consult note [facility] Medical Records Department [address] [place] [address] Consultation - Cardiology 12/09/24 1016 MR#: [id number] Acct: [id number] Name: MARCEL TURCIOS Rep #:[id number] : 1960 64 From: Jesse Urban MD PCP: Dr. Jose David Sims MD Status:ADM IN Location: [place] [address]- 1 Assessment & Plan Assessment/Plan (1) Elevated troponin: [...] being treated for COPD exacerbation. [facility] Medical History PTSD (post-traumatic stress disorder) Foraminal [...] 72.1 H, Lymph % (Auto) 17.5 L, Lee % (Auto) 8.6, Eos % (Auto) 0.4, [...] 75.7 H, Lymph % (Auto) 16.7 L, Lee % (Auto) 6.4, Eos % (Auto) 0.2, [...] Sl. Cloudy, Urine pH 5.0, Ur Specific [place] 1.025, Urine Protein 100 H, Urine Glucose [...] entered Clinical Comments Home unit: 11/11 21% Cardiology Labs/Tests 12/08/24 02:20: Lactic Acid 1.2 12/08/24 21:20: WBC 20.3 H, RBC 6.14, Hgb 18.4 H*, Hct 53.8, MCV 87.6, MCH 30.0,MCHC 34.2, Plt Count 267, MPV 9.0, Immature Gran % (Auto) 0.600, Neut % (Auto) 72.1 H, Lymph % (Auto) 17.5 L, Lee % (Auto) 8.6, Eos % (Auto) 0.4, [...] 75.7 H, Lymph % (Auto) 16.7 L, Lee % (Auto) 6.4, Eos % (Auto) 0.2, Baso % (Auto) 0.5, Absolute Neuts (auto) 9.3 H, Nucleated RBC % 0, Sodium 136, Potassium 4.4, Chloride 105, Carbon Dioxide 18.1 L, Anion Gap 13, BUN 18, Creatinine 1.77 H, Est GFR (MDRD) Non-Af 42 L, BUN/Creatinine Ratio 10.0, Mnqhtxo644 H, Calcium 9.2, Phosphorus 2.6 L, Magnesium 2.1, Total Bilirubin 0.71 12/09/24 09:06: Urine Color Yellow, Urine Clarity Sl. Cloudy, Urine pH 5.0, Ur Specific [place] 1.025, Urine Protein 100 H, Urine Glucose [...] or pneumonitis/pneumonia. 2. Mild cardiomegaly. Reading Location: [facility] Chest CT 12/08/24 23:54 IMPRESSION: Coronary artery calcification (CAC) is is present Subsegmental atelectasis/consolidation in the lingula. Please evaluate to exclude superimposed pneumonia. Reading Location: [place] [address] 12/09/242057 Cosigner Signature (if applicable): CC: Dr. Jose David Sims MD~ Signed [facility]06-14-2025 Progress note Author Mis Edmondson [facility] Note Date/Time December 09, 2024 6:[address] [facility] Medical Records Department [address] [place] [address] Progress Note 12/09/24 1639 MR#: [id number] Acct: [id number] Name: MARCEL TURCIOS Rep #:[id number] : 1960 64 From: Mis Edmondson MD PCP: Dr. Jose David Sims MD Status:ADM IN Location: [place] [address] Subjective Subjective Patient seen and examined. He [...] 72.1 H, Lymph % (Auto) 17.5 L, Lee % (Auto) 8.6, Eos % (Auto) 0.4, [...] Troponin T High Sens 36 H D 06/13/25 23:32: Troponin T Hi Sens 2 Hr 34 H, Procalcitonin 0.15 H 12/09/24 05:32: WBC 12.3 H, RBC 5.64, Hgb 16.7 H, Hct 49.6, MCV 87.9, MCH 29.6, MCHC 33.7, RDW Std Deviation 49.1 H, RDW Coeff of Penelope 15.4 H, Plt Count 214, MPV9.1, Immature Gran % (Auto) 0.500, Neut % (Auto) 75.7 H, Lymph % (Auto) 16.7 L, Lee % (Auto) 6.4, Eos % (Auto) 0.2, [...] Sl. Cloudy, Urine pH 5.0, Ur Specific [place] 1.025, Urine Protein 100 H, Urine Glucose [...] entered Clinical Comments Home unit: 11/11 21% Radiography Diagnostic Testing: Radiology Impression Chest X-Ray 12/08/24 21:48 IMPRESSION: 1. Right lower lobe opacity, which may represent atelectasis or pneumonitis/pneumonia. 2. Mild cardiomegaly. Reading Location: [facility] Chest CT 12/08/24 23:54 IMPRESSION: Coronary artery calcification (CAC) is is present Subsegmental atelectasis/consolidation in the lingula. Please evaluate to exclude superimposed pneumonia. Reading Location: [place] [address] Echocardiogram 12/09/24 08:15 Interpretation Summary Poor windows [...] 32 minutes. Charges/Coding Visit Charges Inpatient E&M: 33607 PROLNG IP/OBS E/M EA 15 MIN 12/09/24 1835 <Electronically signed by Mis Edmondson MD> Mis Edmondson MD Cosigner Signature (if applicable): CC: ~ Signed [facility] Work Phone: 1(345) 263-831506-14-[address] [facility] Medical Records Department [address] [place] [address] Progress Note 12/09/24 1639 MR#: [id number] Acct: [id number] Name: MARCEL TURCIOS Rep #:[id number] : 1960 64 From: Mis Edmondson MD PCP: Dr. Jose David Sims MD Status:ADM IN Location: [place] [address] Subjective Subjective Patient seen and examined. He [...] 72.1 H, Lymph % (Auto) 17.5 L, Lee % (Auto) 8.6, Eos % (Auto) 0.4, [...] 75.7 H, Lymph % (Auto) 16.7 L, Lee % (Auto) 6.4, Eos % (Auto) 0.2, [...] Sl. Cloudy, Urine pH 5.0, Ur Specific [place] 1.025, Urine Protein 100 H, Urine Glucose [...] entered Clinical Comments Home unit: 17 21% Radiography Diagnostic Testing: Radiology Impression Chest X-Ray 12/08/24 21:48 IMPRESSION: 1. Right lower lobe opacity, which may represent atelectasis or pneumonitis/pneumonia. 2. Mild cardiomegaly. Reading Location: [facility] Chest CT 12/08/24 23:54 IMPRESSION: Coronary artery calcification (CAC) is is present Subsegmental atelectasis/consolidation in the lingula. Please evaluate to exclude superimposed pneumonia. Reading Location: [facility] Echocardiogram 12/09/24 08:15 Interpretation Summary Poor windows [...] 32 minutes. Charges/Coding Visit Charges Inpatient E&M: 00739 PROLNG IP/OBS E/M EA 15 MIN 12/09/24 9631 Mis Edmondson MD Cosigner Signature (if applicable): CC: ~ Signed [facility]06-14-2025 History and physical note Author Odilia Burgos [facility] Note Date/Time December 09, 2024 4:[address] [facility] Medical Records Department [address] [place] [address] H&P Exam - Hospitalist 12/09/24 0058 MR#: [id number] Acct: [id number] Name: MARCEL TURCIOS Rep #:[id number] : 1960 64 From: Odilia Burgos DO PCP: Dr. Jose David Sims MD Status:ADM IN Location: [facility] KEJ343- 1 HPI - General General Date of Admission: 12/09/24 Date of Service: 12/09/24 Chief Complaint: Shortness of breath HPI Narrative MARCEL TURCIOS, is a 64 M who presented to the emergency department at [facility] on 12/08/2024 with a chief complaint of [...] will put him on Zosyn. [facility] Medical History PTSD (post-traumatic stress disorder) Foraminal [...] 72.1 H, Lymph % (Auto) 17.5 L, Lee % (Auto) 8.6, Eos % (Auto) 0.4, [...] or pneumonitis/pneumonia. 2. Mild cardiomegaly. Reading Location: [facility] Assessment & Plan Assessment/Plan (1) Pneumonia: (2) [...] to discharge - Continue nocturnal BiPAP at 11/11 TAINA - Will give 2 L IV [...] no intubation Charges/Coding Visit Charges Inpatient E&M: 23303 Init Hosp L3 12/09/24 0405 <Electronically signed by Odilia Burgos DO> Cosigner Signature (if applicable): CC: Dr. Jose David Sims MD; Dr. Odilia Burgos DO~ Signed [facility] Work Phone: 1(392) 942-550706-14-[address] [facility] Medical Records Department [address] [place] [address] H&P Exam - Hospitalist 12/09/24 0058 MR#: [id number] Acct: [id number] Name: MARCEL TURCIOS Rep #:[id number] : 1960 64 From: Odilia Burgos DO PCP: Dr. Jose David Sims MD Status:ADM [facility] - General General Date of Admission: 12/09/24 Date of Service: 12/09/24 Chief Complaint: Shortness of breath HPI Narrative MARCEL TURCIOS, is a 64 M who presented to the emergency department at [facility] on12/08/2024 with a chief complaint of shortness [...] Iwill put him on Zosyn. [facility] Medical History PTSD (post-traumatic stress disorder) Foraminal [...] 72.1 H, Lymph % (Auto) 17.5 L, Lee % (Auto) 8.6, Eos % (Auto) 0.4, [...] entered Clinical Comments Home unit: 17/5 21% Imaging Radiology Impression Chest X-Ray 12/08/24 21:48 IMPRESSION: 1. Right lower lobe opacity, which may represent atelectasis or pneumonitis/pneumonia. 2. Mild cardiomegaly. Reading Location: [id number] Assessment & Plan Assessment/Plan (1) Pneumonia: (2) [...] no intubation Charges/Coding Visit Charges Inpatient E&M: 74949 Init Hosp L3 12/09/24 0405 Cosigner Signature (if applicable): CC: Dr. Jose David Sims MD; Dr. Odilia Burgos DO~ Signed [facility]06-14-2025 Radiology Diagnostic study note [facility] Imaging Services [address] [place], [place] [address] Chest without Contrast MR#: [id number] Acct: [id number] Name: MARCEL TURCIOS Rep #: [id number] : 1960 M 64 From: Tristin Song MD PCP: Dr. Jose David Sims MD Status: REG ER Study:Chest without Contrast Date of Exam: 12/08/24 Exam# [id number] Ordering Dr: Brooke Burgos DO PROCEDURE: CHEST [...] evaluate to exclude superimposed pneumonia. Reading Location: [place] [address] CC: Dr. Jose David Sims MD; Dr. Odilia Burgos DO ~ Bulk Plant Manager: Signed [facility]06-13-2025 Radiology Diagnostic study note [facility] Imaging Services [address] [place] [address] Chest PA and Lateral MR#: [id number] Acct: [id number] Name: MARCEL TURCIOS Rep #: [id number] : 1960 M 64 From: Ynes Sanders MD PCP: Dr. Jose David Sims MD Status: REG ER Study:Chest PA and Lateral Date of Exam: 12/08/24 Exam# [id number] Ordering Dr: Martha Sawant PROCEDURE: CHEST PA [...] or pneumonitis/pneumonia. 2. Mild cardiomegaly. Reading Location: [facility] CC: Dr. Jose David Sims MD; YASMANY Helton ~ Bulk Plant Manager: Signed [facility]06-13-2025 Evaluation note* Diagnosis Onset Date Resolution Status Admit Date Acute respiratory failure wi th hypoxia acute December 08, 2024 3:35pm COPD exacerbation chronic December 082024 3:35pm Acute respiratory failure wi th hypoxia acute December 09, 2024 12:58am Atrial fibrillation with rap id ventricular response acute December 09, 2024 12:58am Pneumonia acute December 09 12:58am [facility] Work Phone: 1(488) 643-701806-13-2025 Evaluation note* Diagnosis Onset Date Resolution Status [...] 12:58am COPD exacerbation chronic December 092024 12:58am [facility] Work Phone: 1(549) 754-452506-13-2025 Evaluation note* Diagnosis Onset Date Resolution Status [...] ventricular response acute January 17, 2025 2:00pm [facility] Work Phone: 1(669) 194-715206-13-2025 Radiology Diagnostic study note [facility] Imaging Services [address] [place], [place] [address] Chest PA and Lateral MR#: [id number] Acct: [id number] Name: MARCEL TURCIOS Rep #: [id number] : 1960 M 64 From: Sweetie Metzger MD PCP: Dr. Jose David Sims MD Status: REG ER Study:Chest PA and Lateral Date of Exam: 12/08/24 Exam# [id number] Ordering Dr: Martha Sawant PROCEDURE: CHEST PA [...] pneumothorax. Mild pulmonary vascular congestion. Reading Location: [id number] CC: Dr. Jose David Sims MD; YASMANY Helton ~ Bulk Plant Manager: Signed [facility]03-21-2024 Progress note Author Jose David Majano [facility] September 16, 2023 12:35pm Note Date/Time September 16, 2023 8:2 1am [facility] Medical Records Department [address] [place] [address] Progress Note - Hospitalist 09/16/23 08 MR#: [id number] Acct: [id number] Name: MARCEL TURCIOS Rep #:[id number] : 1960 62 From: Jose David Majano DO PCP: Care Physician,No Primary Status :ADM IN Location: [place] [address] Reason for Visit Reason for Visit: Diagnoses [...] % (Auto) 63.9, Lymph % (Auto) 20.5, Lee% (Auto) 11.9 H, Eos % (Auto) 2.1, [...] Clarity Clear, Urine pH 5.0, Ur Specific [place] 1.025, Urine Protein 30 H, Urine Glucose [...] rhythm with right bundle branch block. * [id number] score of 0 but patient has poor [...] OT evaluation. Charges/Coding Visit Charges Inpatient E&M: 25690 Subs Hosp L2 09/16/23 1233 <Electronically signed by Jose David Majano DO> Cosigner Signature (if applicable): CC: ~ Signed [facility] Work Phone: 1(471) 662-479703-21-2024 Progress note Author Clark Lerma [facility] September 16, 2023 8:21am Note Date/Time September 16, 2023 8:[address] [facility] Medical Records Department [address] [place] [address] Progress Note - Cardiology 09/16/23 0808 MR#: [id number] Acct: [id number] Name: MARCEL TURCIOS Rep #:[id number] : 1960 62 From: Clark Lerma MD PCP: Care Physician,No Primary Status :ADM IN Location: [place] [address] Subjective Subjective Patient seen and evaluated. Appears [...] % (Auto) 63.9, Lymph % (Auto) 20.5, Lee% (Auto) 11.9 H, Eos % (Auto) 2.1, [...] Clarity Clear, Urine pH 5.0, Ur Specific [place] 1.025, Urine Protein 30 H, Urine Glucose [...] % (Auto) 63.9, Lymph % (Auto) 20.5, Lee % (Auto) 11.9 H, Eos % (Auto) [...] Clarity Clear, Urine pH 5.0, Ur Specific [place] 1.025, Urine Protein 30 H, Urine Glucose [...] hesitate to call if any issues arise. 09/16/23820 <Electronically signed by Clark Lerma MD> Cosigner Signature (if applicable): CC: ~ Signed [facility] Work Phone: 1(443) 355-209603-21-2024 History and physical note Author Rod Castellanos [facility] September 15, 2023 10:52pm Note Date/Time September 15, 2023 1:5 0pm [facility] Medical Records Department [address] [place] [address] H&P Exam - Hospitalist 09/15/23 1350 MR#: [id number] Acct: [id number] Name: MARCEL TURCIOS Rep #:[id number] : 1960 62 From: Rod mathias DO PCP: Care Physician,No Primary Status :ADM IN Location: [facility] [id number] HPI - General General Date of Admission: 09/15/23 Date of Service: 09/15/23 Chief Complaint: Worsening weakness and progressive dyspnea with exertion HPI Narrative MARCEL TURCIOS, is a 62 M who presented to [facility] ED on 09/15/2023 with worsening weakness and [...] in a trailer by himself down in [place] and was hardly able to do anything [...] other acute concerns this time. [facility] Medical History Anxiety Back pain COPD (chronic [...] % (Auto) 63.9, Lymph % (Auto) 20.5, Lee% (Auto) 11.9 H, Eos % (Auto) 2.1, [...] Patient is a 62-year-old male who presented [facility] ED on 09/15/2023 with worsening weakness and dyspnea on exertion. 1. New onset A-fib/a flutter with RVR ? Initially with concern for wide-complex tachycardia but after administration of adenosine, more consistent with A-fib/flutter. Given dose of IV Cardizem with conversion to sinus rhythm. EKG showed normal sinus rhythm with right bundle branch block. ? [id number] score of 0 but patient has poor [...] 75 minutes. Charges/Coding Visit Charges Inpatient E&M: 62199 Init Hosp L3 09/15/23 3964 <Electronically signed by Rod Castellanos DO> Cosigner Signature (if applicable): CC: Dr. Rod Castellanos, DO; No Primary Care Physician~ Signed [facility] Work Phone: 1(837) 752-723403-20-2024 Consult note Author Clark Lerma [facility] September 15, 2023 6:16pm Note Date/Time September 15, 2023 6:1 2pm [facility] Medical Records Department [address] [place] [address] Consultation - Cardiology 09/15/23 1808 MR#: [id number] Acct: [id number] Name: MARCEL TURCIOS Rep #:[id number] : 1960 62 From: Clark Lerma MD PCP: Care Physician,No Primary Status :ADM IN Location: [place] [address] Assessment & Plan Assessment/Plan (1) Atrial fibrillation [...] back to normal sinus rhythm [facility] Medical History Anxiety Back pain COPD (chronic [...] % (Auto) 63.9, Lymph % (Auto) 20.5, Lee% (Auto) 11.9 H, Eos % (Auto) 2.1, [...] % (Auto) 63.9, Lymph % (Auto) 20.5, Lee % (Auto) 11.9 H, Eos % (Auto) [...] 12:50 EDT Reading Location ID and State: [address] [place] [address] , Service support , Echocardiogram 09/15/23 14:11 Interpretation Summary Normal left ventricle. The estimated ejection fraction is 65 %. The study was technically difficult. Contrast injection was performed. Ordering Physician: Rod Castellanos Performed By: Jose Gaines RCS 09/15/23 1816 <Electronically signed by Clark Lerma MD> Cosigner Signature (if applicable): CC: Dr. Clark Lerma MD; No Primary Care Physician~ Signed [facility] Work Phone: 1(894) 946-594203-20-2024 Discharge summary Author Bertram Yi [facility] September 15, 2023 4:28pm Note Date/Time September 15, 2023 1:0 9pm [facility] Medical Records Department [address] [place] [address] Emergency Department Summary 09/15/23 MR#: [id number] Acct: [id number] Name: MARCEL TURCIOS Brando Rep #:[id number] : 1960 62 From: Bertram Torres PCP: Care Physician,No Primary Status :ADM IN Location: [place] [address] HPI History of Present Illness Chief Complaint: Weakness [facility] Medical History (Updated 09/15/23 @ 13:56 by [...] % (Auto) 63.9 Lymph % (Auto) 20.5 Lee % (Auto) 11.9 H Eos % (Auto) [...] flutter, Weakness Disposition Disposition: Acute Care Hospital [facility] What to do if you have Problems For any increased pain, shortness of breath, bleeding, nausea or vomiting, chestpain, or any unexpected problems, contact your Primary Care Provider. Call [facility] ([phone]) or report to the closest Emergency Room. Call 911 if necessary. 09/15/23 1628 <Electronically signed by Bertram Yi DO> Cosigner Signature (if applicable): CC: No Primary Care Physician ~ Signed [facility] Work Phone: 1(693) 438-621203-20-2024 Discharge summary Author Bertram Yi [facility] September 15, 2023 4:28pm Note Date/Time September 15, 2023 1:[address] [facility] Medical Records Department [address] [place] [address] Emergency Department Summary 09/15/23 MR#: [id number] Acct: [id number] Name: MARCEL TURCIOS Brando Rep #:[id number] : 1960 62 From: Bertram Torres PCP: Care Physician,No Primary Status :ADM IN Location: [address] History of Present Illness Chief Complaint: Weakness [facility] Medical History (Updated 09/15/23 @ 13:56 by [...] (L/min) 2 2 09/15/23 15:00 09/15/23 15:00 03/20/24 16:00 Temperature 98.4 F 98.4 F 97.4 [...] % (Auto) 63.9 Lymph % (Auto) 20.5 Lee % (Auto) 11.9 H Eos % (Auto) [...] 12:50 EDT Reading Location ID and State: [address] [place] [address] , Service support , EKG Initial EKG: Attestation: I personally reviewed and interpreted this EKG as follows: Comments: Probable atrial flutter with a ventricular rate of 170 bpm. Right bundle branch block noted Management Discussion w/another healthcare provider: Hospitalist Discharge Plan Dx/Rx/DC Orders Clinical Impression: Obstructive sleep apnea, Atrial fibrillation and flutter, Weakness Disposition Disposition: Acute Care [facility] What to do if you have Problems For any increased pain, shortness of breath, bleeding, nausea or vomiting, chestpain, or any unexpected problems, contact your Primary Care Provider. Call [facility] ([phone]) or report to the closest Emergency Room. Call 911 if necessary. 09/15/23 1628 <Electronically signed by Bertram Yi DO> Cosigner Signature (if applicable): CC: No Primary Care Physician ~ Signed [facility] Work Phone: 1(960) 128-174311-08-2021 NotePatient Outreach (4CQ) MARCEL TURCIOS ([id number]) 1960 M Date Time Provider Department 05/05/21 [...] visits Payer: Payor: OPAL / Plan: OPAL YU[employer] HMO SHANTANU / Product Type: HMO / [...] 04/15/2017 Encounter Status:Closed by KULDIP WHITAKER on 05/05/21[facility]11-08-2021 NoteHNO ID: [id number] Author: Kuldip Fischer Service: ? Author Type: [...] Kuldip Martinez Pss May 05, 2021 10:56 [facility] note Author Radha Tellez [facility] September 16, 2023 1:55pm Note Date/Time September 16, 2023 1:5 5pm [facility] Medical Records Department [address] [facility] [place] [address] Counseling Note - Pharmacy 09/16/23 1355 MR#: [id number] Acct: [id number] Name: MARCEL TURCIOS Rep #:[id number] : 1960 62 From: Radha Tellez PCP: Care Physician,No Primary Status :ADM IN Y Location: [place] [address] Pharmacy [facility] Service has performed discharge medication [...] by Radha Tellez > Date _ Radha Hurt Signature (if applicable): Date CC: ~ Signed [facility] Work Phone: Discharge summary Author Jose David Majano [facility] September 16, 2023 1:12pm Note Date/Time September 16, 2023 1:0 2pm [facility] Medical Records Department [address] [place] [address] Discharge Summary 09/16/23 1259 MR#: [id number] Acct: [id number] Name: MARCEL TURCIOS Rep #:[id number] : 1960 62 From: Jose David Majano DO PCP: Care Physician,No Primary Status :ADM IN Location: [place] [address] Providers Date of Admission: 09/15/23 Primary Care [...] rhythm with right bundle branch block. * [id number] score of 0 but patient has poor [...] succinate 50 mg twice daily. Patient said [id number] score was 0 so no anticoagulation was [...] Clarity Clear, Urine pH 5.0, Ur Specific [place] 1.025, Urine Protein 30 H, Urine Glucose [...] Qty: 30 0RF Referrals / Follow Up: [facility] [Provider Group] - Within 1 Month [facility] [Provider Group] - Within 3 Months Care Physician,No Primary [Primary Care Provider] - Within 2 Weeks Disposition Disposition (needs filled in before D/C Order can be placed): Home, Self Care Charges/Coding Visit Charges Inpatient E&M: 20061 Disch Hosp >30min 09/16/23 1312 <Electronically signed by Jose David Majano DO> Cosigner Signature (if applicable): CC: Dr. Jose David Majano DO; No Primary Care Physician~ Signed [facility] Work Phone: Discharge summary Author Michelle Altman [facility] Note Date/Time January 20, 2025 1:[address] [facility] Medical Records Department [address] [place] [address] Instructions for Home/Discharge Instructions 01/20/25 1247 MR#: [id number] Acct: [id number] Name: MARCEL TURCIOS Rep #:[id number] : 1960 64 From: Michelle Altman DO PCP: Dr. Jose David Sims MD Status:ADM IN Discharge Instructions DC O2, CPAP, BIPAP needs Home O2 Discharge instructions: Yes Type of respiratory needs?: Oxygen Oxygen frequency: Continuous Continuous oxygen liters per minute: 2L Dressing / Incision Discharge Activity: Return to Normal Activity Weight Bearing Status: Full weight bearing Follow Up Care Test Results: Test results from this visit will be discussed in further detail at your follow- up appointment, if applicable. Discharge Plan Admission Admit Date/Time: 01/17/25 14:00 Primary Reason for Your Visit: a-fib Attending Provider: Michelle Altman Primary Care Provider: Jose David Sims Consulting Providers: Jaimie kOeefe; Sasha Rice Discharge Orders/Prescriptions Prescriptions: New Eliquis 5 mg Tablet 5 mg PO BID Qty: 0 0RF metoprolol tartrate 50 mg Tablet 50 mg PO BID Qty: 60 0RF Continued albuterol sulfate 1.25 mg/3 mL solution for nebulization 1.25 mg inhalation Q4H PRN PRN (Reason: dyspnea) magnesium oxide 400 mg (241.3 mg magnesium) tablet 400 mg PO BID budesonide-formoterol [Breyna] 160-4.5 mcg/actuation HFA aerosol inhaler 2 inh inhalation Q12H fluconazole 150 mg tablet 150 mg PO QWEEK ketoconazole 2 % cream 1 applic topical BID Referrals / Follow Up: Jose David Sims MD [Primary Care Provider] - Within 2 Weeks Disposition Disposition (needs filled in before D/C Order can be placed): Home, Self Care 01/20/25 1310<Electronically signed by Michelle Altman DO>Michelle Altman DO CC: Dr. Jose David Sims MD; Dr. Sasha Rice MD; Dr. Jaimie Okeefe MD ~ Signed [facility] Work Phone: Discharge summary [facility] Note Date/Time January 20, 2025 1:[address] [facility] Medical Records Department [address] [place] [address] Discharge Summary 01/20/25 1310 MR#: [id number] Acct: [id number] Name: MARCEL TURCIOS Rep #:[id number] : 1960 64 From: Michelle Altman DO PCP: Dr. Jose David Sims MD Status:ADM IN Location: [place] [id number]- Providers Date of Admission: 01/17/25 Date of Discharge: 01/20/25 Primary Care Physician: Dr. Jose David Sims MD Consultations 01/18/25 12:50 Consult: Cardiology Routine Consulting Provider: Sasha Rice Reason for Consult: A-fib EMERGENT Consult: No MD Notified: Yes Date Notified: 01/18/25 Time Notified: 12:50 Method of Notification: Verbal Reason For Visit: AFIB WITH RVR Diagnosis Discharge Diagnosis (1) Atrial fibrillation with rapid ventricular response: Status: Acute Code(s): I48.91 - Unspecified atrial fibrillation Medications at Discharge Home Medications albuterol sulfate 1.25 mg/3 mL solution for nebulization 1.25 mg inhalation Q4H PRN PRN dyspnea 12/08/24 budesonide-formoterol HFA 160 mcg-4.5 mcg/actuation aerosol inhaler (Breyna) 2 inh inhalation Q12H 12/08/24 magnesium oxide 400 mg (241.3 mg magnesium) tablet 400 mg PO BID 12/08/24 fluconazole 150 mg tablet 150 mg PO QWEEK 01/17/25 ketoconazole 2 % topical cream 1 applic topical BID 01/17/25 apixaban 5 mg tablet (Eliquis) 5 mg PO BID #0 tabs 01/20/25 metoprolol tartrate 50 mg tablet 50 mg PO BID #60 tabs 01/20/25 Weight / BMI Weight Weight: 165.5 kg Body Mass Index (BMI) 48.3 ABG / Lab / Microbiology Data 01/18/25 05:31 01/18/25 05:31 Microbiology: Microbiology 01/17/25 16:00 Urine, Clean Catch Urine Culture - Final Mixed Gram Positive Organisms 01/19/25 07:35 Stool Enteric Bacteriology - Final 01/19/25 07:35 Stool Clostridioides difficile (PCR) - Final 01/17/25 20:30 Mucosa - Nasopharyngeal Coronavirus COVID-19 PCR - Final 01/17/25 20:30 Mucosa - Nasopharyngeal Respiratory Panel (PCR) - Final Radiography Diagnostic Testing: Radiology Impression Echocardiogram 01/19/25 02:15 Interpretation Summary Normal LV size. Left ventricular systolic function is normal. The left ventricular ejection fraction is 55 %. No regional wall motion abnormalities noted. Contrast injection was performed. The study was technically limited. Ordering Physician: Geneva Estrella Referring Physician: Jose David Sims Performed By: Radha Rodríguez, SUSAN, RVT D/C Instructions Weight Bearing Status: Full weight bearing DC O2, CPAP, BIPAP Needs Home O2 Discharge instructions: Yes Type of respiratory needs?: Oxygen Oxygen frequency: Continuous Continuous oxygen liters per minute: 2L DC home with Oxygen: Yes Home O2 Review: I have reviewed the oxygen testing, and the patient qualifies for home oxygen equipment and portability. The patient is mobile in the home and the community. Meaningful Use Info Meaningful Use Meaningful Use Diagnoses (Choose all that apply): None applicable Discharge Plan Admission Admit Date/Time: 01/17/25 14:00 Primary Reason for Your Visit: a-fib Attending Provider: Michelle Altman Primary Care Provider: Jose David Sims Consulting Providers: Jaimie Okeefe; Sasha Rice Discharge Orders/Prescriptions Prescriptions: New Eliquis 5 mg Tablet 5 mg PO BID Qty: 0 0RF metoprolol tartrate 50 mg Tablet 50 mg PO BID Qty: 60 0RF Continued albuterol sulfate 1.25 mg/3 mL solution for nebulization 1.25 mg inhalation Q4H PRN PRN (Reason: dyspnea) magnesium oxide 400 mg (241.3 mg magnesium) tablet 400 mg PO BID budesonide-formoterol [Breyna] 160-4.5 mcg/actuation HFA aerosol inhaler 2 inh inhalation Q12H fluconazole 150 mg tablet 150 mg PO QWEEK ketoconazole 2 % cream 1 applic topical BID Referrals / Follow Up: Jose David Sims MD [Primary Care Provider] - Within 2 Weeks Disposition Disposition (needs filled in before D/C Order can be placed): Home, Self Care 01/20/25 1311 <Electronically signed by Michelle Altman DO> Cosigner Signature (if applicable): CC: Dr. Jose David Sims MD; Dr. Michelle Altman DO~ Signed [facility] Work Phone: Discharge summary Author Michelle Altman [facility] Note Date/Time January 20, 2025 1:[address] [facility] Medical Records Department [address] [place] [address] Discharge Summary 01/20/25 1311 MR#: [id number] Acct: [id number] Name: MARCEL TURCIOS Rep #:[id number] : 1960 64 From: Michelle Altman DO PCP: Dr. Jose David Sims MD Status:ADM IN Location: [place] [address] Providers Date of Admission: 01/17/25 Date of Discharge: 01/20/25 Primary Care Physician: Dr. Jose David Sims MD Consultations 01/18/25 12:50 Consult: Cardiology Routine Consulting Provider: Sasha Rice Reason for Consult: A-fib EMERGENT Consult: No MD Notified: Yes Date Notified: 01/18/25 Time Notified: 12:50 Method of Notification: Verbal Reason For Visit: AFIB WITH RVR Diagnosis Discharge Diagnosis (1) Atrial fibrillation with rapid ventricular response: Status: Acute Code(s): I48.91 - Unspecified atrial fibrillation Medications at Discharge Home Medications albuterol sulfate 1.25 mg/3 mL solution for nebulization 1.25 mg inhalation Q4H PRN PRN dyspnea 12/08/24 budesonide-formoterol HFA 160 mcg-4.5 mcg/actuation aerosol inhaler (Breyna) 2 inh inhalation Q12H 12/08/24 magnesium oxide 400 mg (241.3 mg magnesium) tablet 400 mg PO BID 12/08/24 fluconazole 150 mg tablet 150 mg PO QWEEK 01/17/25 ketoconazole 2 % topical cream 1 applic topical BID 01/17/25 apixaban 5 mg tablet (Eliquis) 5 mg PO BID #0 tabs 01/20/25 metoprolol tartrate 50 mg tablet 50 mg PO BID #60 tabs 01/20/25 Weight / BMI Weight Weight: 165.5 kg Body Mass Index (BMI) 48.3 ABG / Lab / Microbiology Data 01/18/25 05:31 01/18/25 05:31 Microbiology: Microbiology 01/17/25 16:00 Urine, Clean Catch Urine Culture - Final Mixed Gram Positive Organisms 01/19/25 07:35 Stool Enteric Bacteriology - Final 01/19/25 07:35 Stool Clostridioides difficile (PCR) - Final 01/17/25 20:30 Mucosa - Nasopharyngeal Coronavirus COVID-19 PCR - Final 01/17/25 20:30 Mucosa - Nasopharyngeal Respiratory Panel (PCR) - Final Radiography Diagnostic Testing: Radiology Impression Echocardiogram 01/19/25 02:15 Interpretation Summary Normal LV size. Left ventricular systolic function is normal. The left ventricular ejection fraction is 55 %. No regional wall motion abnormalities noted. Contrast injection was performed. The study was technically limited. Ordering Physician: Geneva Estrella Referring Physician: Jose David Sims Performed By: Radha Rodríguez, SUSAN, RVT D/C Instructions Weight Bearing Status: Full weight bearing DC O2, CPAP, BIPAP Needs Home O2 Discharge instructions: Yes Type of respiratory needs?: Oxygen Oxygen frequency: Continuous Continuous oxygen liters per minute: 2L DC home with Oxygen: Yes Home O2 MD Review: I have reviewed the oxygen testing, and the patient qualifies for home oxygen equipment and portability. The patient is mobile in the home and the community. Meaningful Use Info Meaningful Use Meaningful Use Diagnoses (Choose all that apply): None applicable Discharge Plan Admission Admit Date/Time: 01/17/25 14:00 Primary Reason for Your Visit: a-fib Attending Provider: Michelle Altman Primary Care Provider: Jose David Sims Consulting Providers: Jaimie Okeefe; Sasha Rice Discharge Orders/Prescriptions Prescriptions: New Eliquis 5 mg Tablet 5 mg PO BID Qty: 0 0RF metoprolol tartrate 50 mg Tablet 50 mg PO BID Qty: 60 0RF Continued albuterol sulfate 1.25 mg/3 mL solution for nebulization 1.25 mg inhalation Q4H PRN PRN (Reason: dyspnea) magnesium oxide 400 mg (241.3 mg magnesium) tablet 400 mg PO BID budesonide-formoterol [Breyna] 160-4.5 mcg/actuation HFA aerosol inhaler 2 inh inhalation Q12H fluconazole 150 mg tablet 150 mg PO QWEEK ketoconazole 2 % cream 1 applic topical BID Referrals / Follow Up: Jose David Sims MD [Primary Care Provider] - Within 2 Weeks Disposition Disposition (needs filled in before D/C Order can be placed): Home, Self Care 01/20/25 1311 <Electronically signed by Michelle Altman DO> Cosigner Signature (if applicable): CC: Dr. Jose David Sims MD; Dr. 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 Medical Records Department [address] [place] [address] H&P Exam - Hospitalist 01/17/25 1400 MR#: [id number] Acct: [id number] Name: MARCEL TURCIOS Rep #:[id number] : 1960 64 From: Jaimie Okeefe MD PCP: Dr. Jose David Sims MD Status:ADM IN Location: [place] [id number] HPI - General General Date of Admission: 01/17/25 Date of Service: 01/17/25 Chief Complaint: Tachycardia and panic attack HPI Narrative MARCEL TURCIOS, is a 64-year-old male history of ZAN, COPD, paroxysmal atrial fibrillation noncompliant with anticoagulation, tobacco use who presented to [facility] ED 01/17/2025 with shortness of breath and [...] evaluated bedside. He reports he was at [place] yesterday for the rapid heart rate and anxiety but they wanted to transfer him to [place] to see cardiology and he did not want to so he left [place]. This morning he woke up having a [...] when he is laying down [facility] Medical History (Updated 01/17/25 @ 14:10 by [...] % (Auto) 64.5, Lymph % (Auto) 25.4, Lee % (Auto) 7.7, Eos % (Auto) 1.1, [...] similar to the prior. Reading Location: [facility] Assessment & Plan Assessment/Plan (1) Atrial fibrillation [...] Okeefe MD Charges/Coding Visit Charges Inpatient E&M: 17566 Init Hosp L2 01/17/25 1415 <Electronically signed by Jaimie Okeefe MD> Cosigner Signature (if applicable): CC: Dr. Jose David Sims MD; Dr. Jaimie Okeefe MD~ Signed [facility] Work Phone: Hospital course Narrative No data available for this section [facility] Discharge instructionsAdditional Instructions [facility]: [facility] Phone: Reason for referral (narrative)No reason for referral information availableWChillic[facility] Work Phone: Summary Purpose Family History No Family History Records Found Relationship Condition Age at Onset Recorded Date/T federico Unknown Family History?Heart Disease, Hypertension Unknown August 16, 2019 9:22pm Family History?Heart Disease, Hypertension Unknown August 16, 2019 9:22pm Family History?No pe rtinent history Unknown December 27, 2013 1:35pm Relationship Condition Age at Onset Recorded Date/T federico Not Specified Diabetes mellitus Unknown Hypertension Unknown Advance Directives No Advanced Directives Records Found Advance Directive Response Recorded Date/ Time Advance Directives No November 12 6 2:20pm Living Will No September 15, 2023 11:35am Power of Progressive Assembler And Fitter No September 14 11:35am Advance Directive Response Recorded Date/ Time Advance Directives No November 12 6 2:20pm Living Will No September 15, 2023 4:53pm Power of Progressive Assembler And Fitter No September 14 4:53pm Advance Directive Response Recorded Date/ Time Do you have a Healthcare Power of Progressive Assembler And Fitter? No December 08, 2024 12:22pm Advance Directives No November 12 6 2:20pm Advance Directive Response Recorded Date/ Time Do you have a Healthcare Power of Progressive Assembler And Fitter? No December 08, 2024 4:40pm Advance Directives No November 12 6 2:20pm Advance Directive Response Recorded Date/ Time Do you have a Healthcare Power of Progressive Assembler And Fitter? No December 08, 2024 9:14pm Do you have a Healthcare Power of Progressive Assembler And Fitter? No December 08, 2024 4:40pm Advance Directives No November 12 6 2:20pm Advance Directive Response Recorded Date/ Time Do you have a Healthcare Power of Progressive Assembler And Fitter? No December 09, 2024 2:04am Do you have a Healthcare Power of Progressive Assembler And Fitter? No December 08, 2024 4:40pm Advance Directives No November 12 6 2:20pm Advance Directive Response Recorded Date/ Time Do you have a Healthcare Power of Progressive Assembler And Fitter? No December 09, 2024 2:04am Do you have a Healthcare Power of Progressive Assembler And Fitter? No December 08, 2024 4:40pm Do you have a Healthcare Power of Progressive Assembler And Fitter? No January 17, 2025 9:39am Advance Directives No November 12 2:20pm Advance Directive Response Recorded Date/ Time Do you have a Healthcare Power of Progressive Assembler And Fitter? No December 09, 2024 2:04am Do you have a Healthcare Power of Progressive Assembler And Fitter? No December 08, 2024 4:40pm Do you have a Healthcare Power of Progressive Assembler And Fitter? No January 17, 2025 2:53pm Advance Directives No November 12 2:20pm Chief [...] Date Acute respiratory failure with hypoxia J [facility] 2024 3:35pm COPD exacerbation December 08, 2024 3:35 pm Acute respiratory failure with hypoxia [facility] 2024 12:58am Atrial fibrillation with rapid ventricul ar response December 09, 2024 12:58am Pneumonia December 09, 2024 12:5 8am Chief Complaint Admit Date ACUTE COPD EXACERBATION December 08, 2024 3:35pm ACUTE HYPOXIC RESPIRATORY FAILURE November 262024 12:58am ACUTE HYPOXIC RESPIRATORY FAILURE November 262024 5:48am Reason for Visit Admit Date Acute respiratory failure with hypoxia J [facility] 2024 3:35pm COPD exacerbation December 08, 2024 3:35 pm Acute respiratory failure with hypoxia [facility] 2024 12:58am TAINA (acute kidney injury) December [...] Date Acute respiratory failure with hypoxia J [facility] 2024 3:35pm COPD exacerbation December 08, 2024 3:35 pm Atrial fibrillation with rapid ventricul ar response December 09, 2024 12:58am Acute respiratory failure with hypoxia J [facility] 2024 12:58am TAINA (acute kidney injury) December [...] ventricul ar response January 17, 2025 2:00pm Chief Complaint Admit Date ACUTE COPD EXACERBATION December 08, 2024 3:35pm ACUTE HYPOXIC RESPIRATORY FAILURE November 262024 12:58am ACUTE HYPOXIC RESPIRATORY FAILURE November 262024 5:48am ACUTE HYPOXIC RESPIRATORY FAILURE November 262024 10:52am AFIB WITH RVR January 17, 2025 2:00 pm AFIB WITH RVR January 18, 2025 4:44 pm AFIB WITH RVR January 20, 2025 1:10 pm Additional Source Comments (unrecognized sect ion and content) No Status Records FoundNo Status Records FoundNo Status Records FoundNo Status Records FoundNo Status Records FoundNo Status Records Found INFORMATION SOURCE (unrecogn ized section and content) DATE CREATED AUTHOR 12/21/2017 [facility] DATE CREATED AUTHOR AUTHOR'S ORGANIZ ATION 07/27/2019 [facility] ([place]) DATE CREATED AUTHOR AUTHOR'S ORGANIZ ATION 08/21/2021 [facility] DATE CREATED AUTHOR AUTHOR'S ORGANIZ ATION 01/18/2025 [facility] DATE CREATED AUTHOR AUTHOR'S ORGANIZ ATION 01/27/2025 [facility] DATE CREATED AUTHOR AUTHOR'S ORGANIZ ATION 02/26/2025 [facility] Care Teams (unrecognized sec tion and [...] Provider Active Star t: January 17, 2025 Team Status: Inactive Member Role/Relationship Status Dates Dr. Jose David Sims MD Primary Care Provider Active Start: January 17, 2025 End: January 20, 2025 Dr. Jose Vallejo DO Emergency Provider Activ e Start: January 17, 2025 End: January 20, 2025 Dr. Jaimie Okeefe MD Admit Provider Active Star t: January 17, 2025 End: January 20, 2025 Dr. Jaimie Okeefe MD Other Provider Active Star t: January 17, 2025 End: January 20, 2025 Dr. Michelle Altman DO Attending Provider Active Start: January 17, 2025 End: January 20, 2025 Dr. Sasha Rice MD Other Provider Active Start: January 17, 2025 End: January 20, 2025 Team Status: Active Member Role/Relationship Status Dates Dr. Jose David Sims MD Primary Care Provider Active Start: January 18, 2025 Dr. Jose Vallejo DO Emergency Provider Activ e Start: January 18, 2025 Dr. Jaimie Okeefe MD Admit Provider Active Star t: January 18, 2025 Dr. Jaimie Okeefe MD Other Provider Active Star t: January 18, 2025 Dr. Michelle Altman DO Other Provider Active S tart: January 18, 2025 Dr. Sasha Rice MD Attending Provider Activ e Start: January 18, 2025 Dr. Sasha Rice MD Other Provider Active Start: January 18, 2025 Team Status: Active Member Role/Relationship Status Dates Dr. Jose David Sims MD Primary Care Provider Active Start: January 19, 2025 Dr. Clark Lerma MD Attending Provider Active S tart: January 19, 2025 Team Status: Active Member Role/Relationship Status Dates Dr. Jose David Sims MD Primary Care Provider Active Start: January 20, 2025 Dr. Jose Vallejo DO Emergency Provider Activ e Start: January 20, 2025 Dr. Jaimie Okeefe MD Admit Provider Active Star t: January 20, 2025 Dr. Jaimie Okeefe MD Other Provider Active Star t: January 20, 2025 Dr. Michelle Altman , Attending Provider Active Start: January 20, 2025 Dr. Michelle Altman , DO Other Provider Active S tart: January 20, 2025 Dr. Sasha Rice MD Other Provider Active Start: January 20, 2025 Goals (unrecognized section and content) Goals [...] BE BASED ON THE PRIMARY CLINICAL RECORDS. [facility] [employer] [facility]. provides no warranty or guarantee of the accuracy or completeness of information in this document.
--- NOTE | 2025-05-25 11:01 | CM.ED ---
Sw submitted referral to [facility] as discussed with patient when he was admitted to ED on 05/17/25. Tiana Judd, NORMALIZER, CONCRETE CONVEYOR OPERATOR
== END 2025-05-20 08:45 | disposition left against medical advice (07) ==
LOC: ED 09:12
DX: Z53.21 Procedure and treatment not carried out due to patient leaving prior to being seen by health care provider (principal)
CPT/HCPCS: 99282